=== PATIENT | male | born 1985 | race Caucasian/White ===

== ENCOUNTER → 2020-05-04 13:51 | Outpatient (BNVA) | payer OTHER, SELFPAY | PROVIDERS: PCP Physician Assistant; Visit Provider Urology | DX: Z76.89 Persons encountering health services in other specified circumstances (principal) ==

== ENCOUNTER → 2020-11-29 15:19 | Outpatient (BNVA) | payer OTHER, SELFPAY | PROVIDERS: Visit Provider Urology ==

== ENCOUNTER 2021-09-21 12:18 | Outpatient (REF) | payer OTHER, SELFPAY ==
[2021-09-21 14:02] LABS: MANUAL DIFF FLAG NO
[2021-09-21 14:06] LABS: Basophils Absolute Auto 0.1 X10*3/uL (0.0-0.2); Basophils Percent Auto 1.1 % (0-2); Eosinophils Absolute Auto 0.1 X10*3/uL (0.0-0.4); Eosinophils Percent Auto 1.8 % (0-4); Hematocrit 42.3 % (42.0-52.0); Hemoglobin 14.5 g/dl (14.0-18.0); Imm Gran Abs Auto 0.06 X10*3/uL (0.00-0.03); Imm Gran Pct Auto 1.3 % (0.0-0.4); Lymphocytes Absolute Auto 0.9 X10*3/uL (1.2-4.9); Lymphocytes Percent Auto 20.2 % (20-40); Mean Corpuscular HGB Conc 34.3 g/dl (31.0-36.0); Mean Corpuscular Hemoglobin 34.2 pg (27.0-33.0); Mean Corpuscular Volume 99.8 fL (80.0-98.0); Mean Platelet Volume 10.8 fL (9.4-12.4); Monocytes Absolute Auto 0.6 X10*3/uL (0.1-1.2); Monocytes Percent Auto 13.2 % (2-11); Neutrophils Absolute Auto 2.8 x10*3/uL (2.0-8.3); Neutrophils Percent Auto 62.4 % (45-73); Platelet Count 169 X10*3/uL (160-400); Red Blood Count 4.24 X10*6/uL (4.60-5.80); Red Cell Distribution Width 14.1 % (11.0-16.0); White Blood Count 4.5 X10*3/uL (4.8-10.8)
[2021-09-21 14:13] LABS: Estimated Average Glucose 97 mg/dL
[2021-09-21 14:23] LABS: Alanine Aminotransferase 149 U/L (0-40); Albumin Level 4.6 g/dL (3.5-5.0); Alkaline Phosphatase 69 U/L (39-117); Anion Gap 14 (12-20); Aspartate Amino Transferase 131 U/L (5-37); Bilirubin Total 1.4 mg/dL (0.0-1.0); Blood Urea Nitrogen 10 mg/dL (9-16); Calcium 9.9 mg/dL (8.4-10.2); Carbon Dioxide 25 mmol/L (22-29); Chloride 104 mmol/L (96-108); Cholesterol 287 mg/dL; Estimated Glomerular Filt Rate > 60; Glucose Fasting 106 mg/dL (60-99); HDL Cholesterol 68 mg/dL; LDL Cholesterol Calculated 199 mg/dl; Potassium 3.9 mmol/L (3.3-5.1); Sodium 139 mmol/L (135-145); Total Protein 7.3 g/dL (6.5-8.0); Triglycerides 100 mg/dL
[2021-09-21 14:26] LABS: INTERNATIONAL NORM RATIO 1.1 (0.9-1.1)
[2021-09-21 14:31] LABS: Alanine Aminotransferase 144 U/L (0-40); Albumin Level 4.7 g/dL (3.5-5.0); Alkaline Phosphatase 67 U/L (39-117); Anion Gap 12 (12-20); Aspartate Amino Transferase 129 U/L (5-37); Bilirubin Total 1.5 mg/dL (0.0-1.0); Blood Urea Nitrogen 10 mg/dL (9-16); C Reactive Protein 0.54 mg/dL (< or = 0.50); Calcium 10.1 mg/dL (8.4-10.2); Carbon Dioxide 26 mmol/L (22-29); Chloride 104 mmol/L (96-108); Estimated Glomerular Filt Rate > 60; Gamma Glutamyl Transpeptidase 2832 U/L (11-51); Glucose Fasting 113 mg/dL (60-99); Iron 90 mcg/dL (45-160); Lipase 37 U/L (8-78); Percent Iron Saturation 27 % (15-50); Potassium 3.9 mmol/L (3.3-5.1); Sodium 138 mmol/L (135-145); Total Iron Binding Capacity 331 mcg/dL (228-428); Total Protein 7.3 g/dL (6.5-8.0); Unsaturated Iron Binding 241 ug/dL
[2021-09-21 14:39] LABS: Ferritin 939 ng/mL (20-250); Thyroid Stimulating Hormone 0.92 uIU/mL (0.32-4.0)
[2021-09-21 14:44] LABS: TSH reflex Free T4 0.98 uIU/mL (0.32-4.0)
[2021-09-22 05:02] LABS: Hepatitis A Antibody IgM 0.15 Index (0-0.79); ~Hepatitis A Antibody IgM Nonreactive (Nonreactive)
[2021-09-22 05:09] LABS: HBsAGNum1 0.19 S/CO (0.00-0.99); Hepatitis B Surface Antigen Negative (Negative); ~HepC Num1 0.06 S/CO (0.00-0.79); ~Hepatitis C Antibody Nonreactive (Nonreactive)
[2021-09-23 11:31] LABS: Immunoglobulin A 259 mg/dL (47-310)
[2021-09-24 13:56] LABS: Anti Nuclear Antibody Screen NEGATIVE (NEGATIVE)
[2021-09-25 20:26] LABS: Transglutaminase IgA <1.0 U/mL
[2021-09-26 13:22] LABS: Smooth Muscle Antibody <20 U (<20)
[2021-09-26 13:37] LABS: Mitochondrial Antibodies NEGATIVE (NEGATIVE)
[2021-09-26 17:02] LABS: Ceruloplasmin 25 mg/dL (18-36)
[2021-10-02 22:12] LABS: A1A Clinical Indication NG; A1A Referring Physician NG
== END 2021-09-21 12:19 | disposition home or self-care (01) ==
LOC: HO.WFDLDS 12:18
PROVIDERS: Physician Assistant; Visit Provider Physician Assistant
DX: Z13.29 Encounter for screening for other suspected endocrine disorder (principal); Z13.220 Encounter for screening for lipoid disorders; R10.10 Upper abdominal pain, unspecified; R14.0 Abdominal distension (gaseous); K21.9 Gastro-esophageal reflux disease without esophagitis; R79.89 Other specified abnormal findings of blood chemistry; R19.7 Diarrhea, unspecified
CPT/HCPCS: 36415; 80053; 80061; 82104; 82390; 82728; 82784; 82977; 83036; 83540; 83690; 84443; 85025; 85610; 86015; 86038; 86039; 86140; 86255; 86256; 86364; 86709; 86803; 87340

== ENCOUNTER 2021-10-06 12:31 | Outpatient (REF) | payer OTHER, SELFPAY ==
[2021-10-06 15:16] LABS: CDiff Gene PCR NEGATIVE (Negative)
[2021-10-06 15:51] LABS: Leukocytes Stool Qualitative NEGATIVE (NEGATIVE)
[2021-10-11 15:27] LABS: Fecal Fat Qualitative Normal (Normal)
== END 2021-10-06 12:32 | disposition home or self-care (01) ==
LOC: HO.WFDLNP 12:31
PROVIDERS: PCP Physician Assistant; Visit Provider Physician Assistant
DX: R10.10 Upper abdominal pain, unspecified (principal); R14.0 Abdominal distension (gaseous); R19.7 Diarrhea, unspecified; R79.89 Other specified abnormal findings of blood chemistry; K21.9 Gastro-esophageal reflux disease without esophagitis
CPT/HCPCS: 82705; 87045; 87046; 87177; 87209; 87329; 87338; 87493; 89055

== ENCOUNTER 2023-01-21 | Outpatient (REF) | payer BC, SELFPAY ==
--- NOTE | ~2023-01-21 | XR_ITS ---
EXAMINATION: XR LUMBOSACRAL SPINE CLINICAL INFORMATION: Worsening low back pain COMPARISON: None available. TECHNIQUE: Three views of the lumbosacral spine. FINDINGS: There is normal lumbar lordosis. The vertebral heights are normal. There is grade 1 retrolisthesis L4 over L5. Rest of the vertebral alignment is normal. No visible acute fracture, dislocation, subluxation seen. No aggressive lytic or sclerotic process seen. SI joints are symmetrical and normal. XR/XR lumbar spine 2-3V IMPRESSION: Grade 1 retrolisthesis L4 over L5. No visible fracture, lytic or sclerotic process seen
== END 2023-01-21 00:01 | disposition home or self-care (01) ==
LOC: HO.XRAY
PROVIDERS: PCP Physician Assistant; Visit Provider Physician Assistant
DX: M54.50 Low back pain, unspecified (principal)
CPT/HCPCS: 72100

== ENCOUNTER 2023-02-01 08:26 | Outpatient (AMB) | payer BC, SELFPAY ==
--- NOTE | 2023-02-01 08:28 | MHC.OFFVIS ---
Intake Vital Signs 02/01/23 08:33 Height 6 ft Weight 227 lb 6 oz BMI 30.8 BP 130/77 Blood Pressure Location Rt brachial Position Sitting Pulse 89 Pulse Source Pulse Oximeter Pulse Oximetry (%) 100 Oxygen Delivery Method Room Air Intake Visit Reasons: intervertebral disc disorder Intake Note: Pain today 10/13. 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 Denies any recent trauma, injury or falls. Back pain is axial and does not radiates to lower extremities, except with shooting pain radiating into his lateral hips bilaterally. Back pain is worst during the day and coccyx pain with any prolonged sitting. 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 Thus far, patient has done physical therapy and tried conservative management including heating pads, hot shower, NSAIDs and increase daily walking. Patient also reports he has not gained significant improvement in his function or reduction in pain with course of physical therapy. Pain negatively affects his daily functioning, work, sleep, mood and quality of life. Recent lumbar spine xray is noted for Grade 1 retrolisthesis L4 over L5. Patient denies previous spine surgery or injections. Denies any fever, abdominal or groin pain, weakness, burning, tingling, bladder or bowel dysfunction or saddle anesthesia. Oswestry Low Back Pain Disability score is 23 (moderate). Location Lower back radiates to bilateral hips Duration Chronic pain for 5 years Characteristics of symptom or complaint Aching, stabbing, shock-like, tiring, sharp, shooting, spasming Aggravating or associated factors Lifting, movements, laying down, changing positions, prolonged sitting Relieving factors Walking, OTC Ibuprofen, heating therapy, hot shower Treatment PT- 3 years ago, no improvement [facility] Medical History History of epididymitis Erectile dysfunction Orchalgia Frequency of urination Anxiety Erectile dysfunction Chronic lower back pain Fibromyalgia Surgical History History of shoulder surgery Family History Father Osteoarthritis HTN (hypertension) Heart attack, Onset Age: 67 Mother No problems noted. 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 Alert and oriented. Mood and affect appropriate. Follows and participates in conversation appropriately. Respiratory effort is unlabored. No cough. Able to transition from sit to stand unassisted. Ambulates with bilaterally normal heel strike and toe off. Back/Spine/Pelvis Other: Patient is able to walk and stand on heels and tip toes with no difficulties demonstrating good motor tone. No limping. Can flex forward to 60-65 degrees and extend to 5-10 degrees before experiencing lumbar pain. Demonstrates 5/5 strength of quadriceps bilaterally as well as flexion/dorsiflexion of bilateral feet against resistance. 2+ pedal pulses bilaterally. Straight leg rise with dorsiflexion positive bilaterally. +2 patellar and achilles reflexes bilaterally. Facet loading test positive bilaterally. Diego?s, Pelvic compression and Stinchfield tests reproduce left lower back pain. No groin pain with I/E hip rotations. Valsalva maneuver negative. Cervical Spine: cervical ROM normal, cervical muscular tenderness and No Cervical spine tenderness Thoracic/Lumbar Spine: thoracic and lumbar spine normal to inspection, No Thoracic/lumbar spine scar(s), Lasegue's sign positive bilateral and diffuse, pain with thoraco-lumbar ROM, paraspinal muscle tenderness, thoraco-lumbar ROM limited, No thoracic spinal tenderness and lumbar spinal tenderness at L4 and at L5 Pelvis: buttock tenderness bilaterally and no sciatic notch tenderness Sacroiliac joints: bilaterally tender to palpation Coccyx: Coccyx tenderness present Results Reviewed Results Reviewed: XR LUMBOSACRAL SPINE 01/21/23 CLINICAL INFORMATION: Worsening low back pain COMPARISON: None available. TECHNIQUE: Three views of the lumbosacral spine. FINDINGS: There is normal lumbar lordosis. The vertebral heights are normal. There is grade 1 retrolisthesis L4 over L5. Rest of the vertebral alignment is normal. No visible acute fracture, dislocation, subluxation seen. No aggressive lytic or sclerotic process seen. SI joints are symmetrical and normal. IMPRESSION: Grade 1 retrolisthesis L4 over L5. No visible fracture, lytic or sclerotic process seen Assessment & Plan Assessment & Plan (1) Lumbosacral spondylosis: Code(s): M47.817 - Spondylosis without myelopathy or radiculopathy, lumbosacral region (2) Lumbar degenerative disc disease: Code(s): M51.36 - Other intervertebral disc degeneration, lumbar region (3) Muscle spasm: Code(s): M62.838 - Other muscle spasm (4) Spondylolisthesis of lumbar region: Code(s): M43.16 - Spondylolisthesis, lumbar region Plan MRI of the lumbar spine to assess for neural integrity and compression and follow up on recent lumbar spine xray findings. Patient has tried NSAIDs, physical therapy, home exercise program, heat therapy with continued symptoms. Patient will return to the clinic to discuss results of the MRI findings when it is done and consider interventional therapy as indicated. Scripts sent for meloxicam and methocarbamol, side effects and precautions reviewed with patient. All questions and concerns have been answered and patient agreed with the plan. Follow up for MRI results and sooner if needed. Orders: Orders MR lumbar spine wo con Today M43.16 - Spondylolisthesis, lumbar region, M47.817 - Spondylosis without myelopathy or radiculopathy, lumbosacral region, M51.36 - Other intervertebral disc degeneration, lumbar region Medications: New methocarbamol 750 mg PO Q8H PRN 30 tabs 0RF pain M62.838 - Other muscle spasm meloxicam Take it with food and full glass of water. Avoid other NSAIDs. 15 mg PO DAILY 30 days PRN 30 tabs 0RF pain M47.817 - Spondylosis without myelopathy or radiculopathy, lumbosacral region, M51.36 - Other intervertebral disc degeneration, lumbar region Coding Level of Care Code New Pt Level 4 (86124) Diagnoses Lumbosacral spondylosis M47.817 Lumbar degenerative disc disease M51.36 Muscle spasm M62.838 Spondylolisthesis of lumbar region M43.16
[2023-02-01 08:33] VITALS: BP 130/77; PULSE 89; O2SAT 100; BMI 30.8
== END 2023-02-01 08:56 | disposition home or self-care (01) ==
PROVIDERS: PCP Physician Assistant; Visit Provider Nurse Practitioner Family
DX: M47.817 Spondylosis without myelopathy or radiculopathy, lumbosacral region (principal); M51.36 Other intervertebral disc degeneration, lumbar region; M62.838 Other muscle spasm; M43.16 Spondylolisthesis, lumbar region
CPT/HCPCS: 99204

== ENCOUNTER → 2023-02-01 08:26 | Outpatient (BNVA) | payer BC, SELFPAY | PROVIDERS: PCP Physician Assistant; Visit Provider Nurse Practitioner Family ==

== ENCOUNTER 2023-02-17 19:59 | Emergency (ER) | payer BC, SELFPAY ==
[2023-02-17 20:11] VITALS: BP 149/95; PULSE 121; RESP 18; TEMP 37.1; O2SAT 96; BMI 29.2
--- NOTE | 2023-02-17 20:19 | ED_ITS ---
HPI - General Adult General Chief complaint: Back Pain/Injury Stated complaint: Back pain Time Seen by Provider: 02/17/23 21:46 Source: patient Mode of arrival: ambulatory Limitations: no limitations History of Present Illness HPI narrative: Patient is a 37 year old assigned male at with a history of chronic back pain presenting to the emergency department today with low back pain. Patient states that he has been having chronic low back pain for 10 years and over the last month, it has gotten much worse. Patient states that he has an MRI scheduled here at [facility] on 02/23/2023. Patient admits to drinking 4-5 times a week but will not disclose how much a night. Patient denies any history of liver disease. Patient denies any history of ocular disease. Patient denies any dizziness, lightheadedness, abdominal pain, nausea, vomiting, fever, chills, blurry vision, double vision, loss of vision, chest pain, difficulty breathing, shortness of breath, night sweats, pain with urination, increased urinary freque ncy, increased urinary urgency, blood in his urine or stool, syncope or a near syncopal episode, recent trauma or falls, bowel incontinence, bladder incontinence, bowel retention, bladder retention, or any other complaints at this time. Onset (ago): month(s) (1) Location: back Relieving factors: none Exacerbating factors: none Associated symptoms: denies other symptoms Treatments prior to arrival: none Related Data Home Medications Medication Instructions Recorded Confirmed atomoxetine 25 mg capsule 25 mg PO DAILY 10/17/22 10/17/22 propranolol 10 mg tablet 10 mg PO BID PRN 10/17/22 10/17/22 quetiapine 25 mg tablet 25 - 50 mg PO BEDTIME 10/17/22 10/17/22 venlafaxine 225 mg tablet,extended 225 mg PO DAILY 10/17/22 10/17/22 release 24 hr Previous Rx's Medication Instructions Recorded albuterol sulfate 90 mcg/actuation 1 puff PO QID 30 days #8.5 grams 12/11/21 aerosol inhaler betamethasone dipropionate 0.05 % 1 appl topical DAILY 30 days #45 02/22/22 topical cream grams meloxicam 15 mg tablet 15 mg PO DAILY PRN pain 30 days 02/01/23 #30 tabs methocarbamol 750 mg tablet 750 mg PO Q8H PRN pain #30 tabs 02/01/23 clonazepam 0.5 mg tablet (Klonopin) 0.5 mg PO DAILY PRN panic 02/04/23 attack(s) 30 days #15 tabs prednisone 10 mg tablet 10 mg PO DIRECTED 9 days #18 02/14/23 tabs tramadol 50 mg tablet 50 mg PO BID 5 days #10 tabs 02/14/23 Allergies Allergy/AdvReac Type Severity Reaction Status Date / Time No Known Allergies Allergy Mild NONE Verified 02/01/23 08:32 Review of Systems Constitutional: Constitutional: Reports no additional constitutional complaints, Denies chills, Denies fever(s) and Denies night sweats Eyes: Eyes: Reports no additional eye complaints, Denies blurry vision, Denies change in vision, Denies diplopia, Denies eye discharge, Denies loss of vision and Denies eye pain ENT: Denies dizziness Cardiovascular: Cardiovascular: Reports no additional cardiovascular complaints, Denies chest pain, Denies lightheadedness, Denies Loss of Consciousness and Denies dyspnea Respiratory: Respiratory: Reports no additional respiratory complaints and Denies dyspnea Gastrointestinal: Gastrointestinal: Reports no additional gastrointestinal complaints, Denies abdominal pain, Denies melena, Denies hematochezia, Denies change in bowel habits and Denies change in stool character Genitourinary: Genitourinary: Reports no additional male genitourinary complaints, Denies hematuria, Denies oliguria, Denies difficulty urinating, Denies dysuria, Denies urinary frequency, Denies urinary hesitancy, Denies urinary incontinence and Denies urinary urgency Musculoskeletal: Musculoskeletal: Reports no additional musculoskeletal complaints, Reports back pain, Denies numbness and Denies tingling Neurologic: Denies dizziness, Denies loss of vision, Denies numbness and Denies tingling Psychiatric: Psychiatric: Reports no additional psychiatric complaints Endocrine: Endocrine: Reports no additional endocrine complaints Hematologic/Lymphatic: Hematologic/Lymphatic: Reports no additional hematologic/lymphatic complaints Allergic/Immunologic: Allergic/Immunologic: Reports no additional allergic/immunologic complaints PMFSH Past Medical History Attestation statement: The following information was validated with the patient. Source: old records reviewed and nursing notes reviewed Medical History Obese Annual physical exam Elevated LFTs Screening for hypothyroidism Screening for hypercholesterolemia Screening for diabetes mellitus (DM) History of epididymitis Erectile dysfunction Orchalgia Frequency of urination Anxiety Erectile dysfunction Chronic lower back pain Fibromyalgia Surgical History History of shoulder surgery Family History Family History Father Osteoarthritis HTN (hypertension) Heart attack, Onset Age: 67 Mother No problems noted. 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 Cognitive needs: No Hearing needs: No Vision needs: No Physical Exam ED Vital Signs: Vital Signs - 24 hr 02/17/23 20:11 02/17/23 21:44 Temperature 98.8 F 98.6 F Pulse Rate 121 H 123 H Respiratory Rate 18 18 Blood Pressure 149/95 H 164/101 H Pulse Oximetry 96 97 Oxygen Delivery Method Room Air Room Air BMI result Body Mass Index 29.2 Const General: cooperative, no acute distress, alert and awake Nutritional Appearance: well nourished Orientation/consciousness: patient oriented x3 Limitations: no limitations [facility] Head: Yes normal to inspection and Yes atraumatic Ears: hearing grossly normal bilaterally and external ears normal General nose exam: Normal external nose present, no nasal discharge noted and no epistaxis Face and sinus: Yes normal facial exam, No abrasion and No laceration Mouth: Normal oral and palatal mucosa present, no drooling and no muffled voice Eyes Periorbital: periorbital findings normal Eyelids: Yes eyelids normal Sclerae: scleral abnormal bilateral other (icterus) Pupils: Equal, round and reactive pupils present EOM: EOMs intact bilaterally Neck Neck: Yes normal visual inspection, Yes full ROM and Yes no lymphadenopathy Chest Chest palpation & inspection: normal inspection of the chest Resp Effort & Inspection: normal respiratory effort and able to speak in complete sentences GI Inspection: Yes normal to inspection Skin Other: jaundice tone Neuro General: patient oriented x3 and moves all extremities Cranial nerves: Yes Equal, round and reactive pupils present Cognition (Neuro): normal cognition Motor exam (neuro): 5/5 motor strength present throughout Sensory Exam: Normal double simultaneous stimulation for sensation Coordination: [id number] test normal Extrem General: Yes normal to inspection, Yes full ROM and Yes capillary refill normal Psych Appearance: grossly normal Mental Status: mental status grossly normal Affect: normal affect Attitude: cooperative Thought process: Normal thought process present Thought content: Normal thought content present Insight: Good insight present (Psych) Course Course Course Narrative: RME: 37 yold male presents to the ED for chronic back pain exacerbation for one month. patient has MRi scheulded for 02/23. patient states worsening back pain, but no Urinay/bowel incontinence. patient states no abdominal pain or symptoms. Patient to be examined in [facility]. Medical Decision Making Medical Decision Making [facility] Narrative: Patient is a 37 year old assigned male at with a history of chronic back pain presenting to the emergency department today with low back pain. Patient's physical exam showed jaundiced skin and slceral icterus. Additionally, the patient was tremulous and smelled strongly of alcohol. I explained my physical exam findings to the patient. I explained to the patient that given his physical exam findings, I am concerned he has worsening liver disease and needs further work up including labs and imaging. Patient adamantly refused any lab work or imaging. I explained to the patient that he would be provided pain medication for his back in addition to this work up and he still refused. I explained to the patient the risks of refusing the work up, treatment, and signing out against medical advice including and disability. Patient verbalized understanding and requested to leave against medical advice anyway. Differential Diagnosis Differential Diagnoses: The differential diagnosis associated with the presentation includes Liver disease Cirrhosis Liver failure Back pain Discharge Plan Discharge Clinical Impression: Back pain, Alcohol use, Jaundice Patient Disposition: Left Against Medical Advice Prescriptions: No Action albuterol sulfate 90 mcg/actuation HFA aerosol inhaler 1 puff PO QID 30 Days Qty: 8.5 3RF clonazepam [Klonopin] 0.5 mg tablet 0.5 mg PO DAILY PRN (Reason: panic attack(s)) 30 Days Qty: 15 1RF prednisone 10 mg tablet 10 mg PO DIRECTED 9 Days Qty: 18 0RF Rx Instructions: take 3 tabs x 3 days, 2 tablets x3 days, 1 tablet x3 days tramadol 50 mg tablet 50 mg PO BID 5 Days Qty: 10 0RF venlafaxine 225 mg tablet extended release 24hr 225 mg PO DAILY propranolol 10 mg tablet 10 mg PO BID PRN quetiapine 25 mg tablet 25 - 50 mg PO BEDTIME atomoxetine 25 mg capsule 25 mg PO DAILY betamethasone dipropionate 0.05 % cream 1 appl topical DAILY 30 Days Qty: 45 1RF meloxicam 15 mg tablet 15 mg PO DAILY PRN (Reason: pain) 30 Days Qty: 30 0RF Rx Instructions: Take it with food and full glass of water. Avoid other NSAIDs. methocarbamol 750 mg tablet 750 mg PO Q8H PRN (Reason: pain) Qty: 30 0RF Stand Alone Forms: Against Medical Advice Interventions: ED Discharge Assessment Last Done: 02/17/23 22:02 Discharge Date/Time: 02/17/23 22:02
[2023-02-17 21:44] VITALS: BP 164/101; PULSE 123; RESP 18; TEMP 37; O2SAT 97
--- NOTE | 2023-02-17 22:01 | PC.NURSE ---
pt refusing labwork recommended by macario payne. pt left ama. pt ambulatory refused final set of vital signs
== END 2023-02-17 22:02 | disposition left against medical advice (07) ==
PROVIDERS: Emergency Provider Emergency Medicine Emergency Medical Services; PCP Physician Assistant
DX: M54.50 Low back pain, unspecified (principal); F10.90 Alcohol use, unspecified, uncomplicated; Y90.9 Presence of alcohol in blood, level not specified; R17 Unspecified jaundice; Z79.899 Other long term (current) drug therapy
CPT/HCPCS: 99284

== ENCOUNTER 2023-02-23 14:35 | Outpatient (REF) | payer BC, SELFPAY ==
--- NOTE | ~2023-02-23 | MR_ITS ---
EXAMINATION: MR LUMBAR SPINE WITHOUT CONTRAST CLINICAL INFORMATION: Spondylolisthesis. COMPARISON: Lumbar spine radiographs 01/21/2023. Lumbar spine MRI 07/23/2014. TECHNIQUE: MRI of the lumbar spine was obtained using routine sequences without contrast. FINDINGS: Alignment is normal. Vertebral heights are preserved. No acute bone marrow signal changes. There is loss of intervertebral disc height and T2 signal intensity at L5-S1 related to disc degeneration. The tip of the conus medullaris is located at L1-L2. No mass effect on the conus. Visualized distal cord signal intensity is normal. At L1-L2, L2-L3, L3-L4, and L4-L5 the annular contours are normal. No canal or neuroforaminal compromise at these 4 levels. At L5-S1 there is a large broad-based central to the left subarticular extrusion with 2 cm superior subligamentous extension of extruded disc material. Asymmetric narrowing left subarticular zone causes compression of the left traversing S1 nerve roots. There is also mild mass effect on the left L5 foraminal nerve root at this level. Limited visualization the retroperitoneal anatomy reveals no abnormal finding. Psoas and paraspinal muscle groups are symmetric. MR/MR lumbar spine wo con IMPRESSION: There is a large broad-based central to the left subarticular extrusion at L5-S1 causing compression of the left traversing S1 nerve roots. There is also mild mass effect on the left L5 foraminal nerve root at this level. Otherwise no canal or neuroforaminal compromise elsewhere within the lumbar spine.
== END 2023-02-23 14:36 | disposition home or self-care (01) ==
LOC: HO.MRI 14:35
PROVIDERS: PCP Physician Assistant; Visit Provider Nurse Practitioner Family
DX: M43.16 Spondylolisthesis, lumbar region (principal); M47.817 Spondylosis without myelopathy or radiculopathy, lumbosacral region; M51.36 Other intervertebral disc degeneration, lumbar region
CPT/HCPCS: 72148

== ENCOUNTER 2023-02-28 11:24 | Outpatient (AMB) | payer BC, SELFPAY ==
[2023-02-28 11:28] VITALS: BP 130/82; PULSE 93; O2SAT 100; BMI 30.7
--- NOTE | 2023-02-28 11:28 | A.OFFVIS_ITS ---
Intake Vital Signs 02/28/23 11:28 Height 6 ft Weight 226 lb 8 oz BMI 30.7 BP 130/82 Blood Pressure Location Lt brachial Position Sitting Pulse 93 Pulse Source Pulse Oximeter Pulse Oximetry (%) 100 Oxygen Delivery Method Room Air Intake Visit Reasons: FOLLOW UP/MRI RESULTS Intake Note: Pain today 12/13 Quantitative Researcher Required: No Accompanied by: Self / Same As Patient Allergies No Known Allergies Allergy (Mild, Verified 02/01/23 08:32) NONE HPI HPI Comments History of Present Illness Details Patient presents today to review recent lumbar spine MRI results. He continues to endorse low back pain with significant left sided radicular symptoms in L5-S1 distribution. MRI showed a large broad-based central to the left subarticular extrusion at L5-S1 causing compression of the left traversing S1 nerve roots. There is also mild mass effect on the left L5 foraminal nerve root at this level. Discussed benefit of epidular steroid injection and referral for Neurosurgical evaluation. Denies any fever, bladder or bowel dysfunction. Reports transient numbness and pain to left buttock with intermittent weakness of LLE. Patient reports minimal pain relief with short script by his PCP for tramadol, as well as oral steroid trial and muscle relaxants. He has hepatic steatosis and [place] [facility]. Most recent liver function tests are not available. Concerns discussed with patient today for his regular intake of alcohol which put him at high risk for alcoholic hepatitis. Patient reports alcohol helps his pain and anxiety. He takes propranolol and clonazepam for anxiety with partial management of his symptoms. Patient reports constipation for 2 weeks when he started tramadol. PRIOR: Patient is a 37 years old male with history of chronic low back pain, interstitial cystitis, left shoulder surgery and fibromyalgia presents today for initial evaluation of lower back and tailbone pain. Denies any recent trauma, injury or falls. Back pain is axial and does not radiates to lower extremities, except with shooting pain radiating into his lateral hips bilaterally. Back pain is worst during the day and coccyx pain with any prolonged sitting. 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 Thus far, patient has done physical therapy and tried conservative management including heating pads, hot shower, NSAIDs and increase daily walking. Patient also reports he has not gained significant improvement in his function or reduction in pain with course of physical therapy. Pain negatively affects his daily functioning, work, sleep, mood and quality of life. Recent lumbar spine xray is noted for Grade 1 retrolisthesis L4 over L5. Patient denies previous spine surgery or injections. Denies any fever, abdominal or groin pain, weakness, burning, tingling, bladder or bowel dysfunction or saddle anesthesia. Oswestry Low Back Pain Disability score is 23 (moderate). Location Lower back radiates to bilateral hips Duration Chronic pain for 5 years Characteristics of symptom or complaint Aching, stabbing, shock-like, tiring, sharp, shooting, spasming Aggravating or associated factors Lifting, movements, laying down, changing positions, prolonged sitting Relieving factors Walking, OTC Ibuprofen, heating therapy, hot shower Treatment PT- 3 years ago, no improvement PFSH Medical History Obese Annual physical exam Elevated LFTs Screening for hypothyroidism Screening for hypercholesterolemia Screening for diabetes mellitus (DM) History of epididymitis Erectile dysfunction Orchalgia Frequency of urination Anxiety Erectile dysfunction Chronic lower back pain Fibromyalgia Surgical History History of shoulder surgery Family History Father Osteoarthritis HTN (hypertension) Heart attack, Onset Age: 67 Mother No problems noted. 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 Cognitive needs: No Hearing needs: No Vision needs: No Review of Systems Const All systems reviewed & are unremarkable except as noted in HPI and below Reports as per HPI, Reports difficulty sleeping, Reports fatigue, Denies fever(s), Denies malaise, Denies weakness and Denies weight loss GI Reports as per HPI, Denies melena, Denies hematochezia, Reports constipation, Denies fecal incontinence, Denies diarrhea, Denies nausea, Denies vomiting and Denies hematemesis Denies urinary incontinence Neuro Denies weakness Endo Reports fatigue Physical Exam Vital Signs: Last Vital Signs Pulse 93 02/28/23 11:28 BP 130/82 02/28/23 11:28 Pulse Ox 100 02/28/23 11:28 Oxygen Delivery Method Room Air 02/28/23 11:28 BMI result Body Mass Index 30.7 General: Appears afebrile. Alert and oriented. Mood and affect appropriate. Follows and participates in conversation appropriately. Respiratory effort is unlabored. No cough. Able to transition from sit to stand unassisted. Ambulates with bilaterally normal heel strike and toe off, but reports off balance on the left. Back/Spine/Pelvis Other: Limited lumbar ROM, with flexion reproducing more pain than extension. Demonstrates 5/5 strength of quadriceps bilaterally as well as flexion/dorsiflexion of bilateral feet against resistance. 2+ pedal pulses bilaterally. Straight leg rise with dorsiflexion positive on the left. +2 meza llar and +1 achilles reflexes bilaterally. Facet loading test positive bilaterally. Diego?s, Pelvic compression and Stinchfield tests reproduce left lower back and lateral hip pain. No groin pain with I/E hip rotations. Valsalva maneuver negative. Cervical Spine: cervical ROM normal, cervical muscular tenderness and No Cervical spine tenderness Thoracic/Lumbar Spine: thoracic and lumbar spine normal to inspection, No Thoracic/lumbar spine scar(s), Lasegue's sign positive on the left and diffuse, pain with thoraco-lumbar ROM, paraspinal muscle tenderness, No thoracic spinal tenderness and lumbar spinal tenderness (L4-S1) Pelvis: buttock tenderness (left>right) bilaterally and sciatic notch tenderness on the left Sacroiliac joints: bilaterally tender to palpation Coccyx: Coccyx tenderness present Results Reviewed Results Reviewed: XR LUMBOSACRAL SPINE 01/21/23 CLINICAL INFORMATION: Worsening low back pain COMPARISON: None available. TECHNIQUE: Three views of the lumbosacral spine. FINDINGS: There is normal lumbar lordosis. The vertebral heights are normal. There is grade 1 retrolisthesis L4 over L5. Rest of the vertebral alignment is normal. No visible acute fracture, dislocation, subluxation seen. No aggressive lytic or sclerotic process seen. SI joints are symmetrical and normal. IMPRESSION: Grade 1 retrolisthesis L4 over L5. No visible fracture, lytic or sclerotic process seen MR LUMBAR SPINE WITHOUT CONTRAST 02/23/23 CLINICAL INFORMATION: Spondylolisthesis. COMPARISON: Lumbar spine radiographs 01/21/2023. Lumbar spine MRI 07/23/2014. TECHNIQUE: MRI of the lumbar spine was obtained using routine sequences without contrast. FINDINGS: Alignment is normal. Vertebral heights are preserved. No acute bone marrow signal changes. There is loss of intervertebral disc height and T2 signal intensity at L5-S1 related to disc degeneration. The tip of the conus medullaris is located at L1-L2. No mass effect on the conus. Visualized distal cord signal intensity is normal. At L1-L2, L2-L3, L3-L4, and L4-L5 the annular contours are normal. No canal or neuroforaminal compromise at these 4 levels. At L5-S1 there is a large broad-based central to the left subarticular extrusion with 2 cm superior subligamentous extension of extruded disc material. Asymmetric narrowing left subarticular zone causes compression of the left traversing S1 nerve roots. There is also mild mass effect on the left L5 foraminal nerve root at this level. Limited visualization the retroperitoneal anatomy reveals no abnormal finding. Psoas and paraspinal muscle groups are symmetric. IMPRESSION: There is a large broad-based central to the left subarticular extrusion at L5-S1 causing compression of the left traversing S1 nerve roots. There is also mild mass effect on the left L5 foraminal nerve root at this level. Otherwise no canal or neuroforaminal compromise elsewhere within the lumbar spine. Assessment & Plan Assessment & Plan (1) Constipation: Code(s): K59.00 - Constipation, unspecified (2) Lumbar disc herniation with radiculopathy: Code(s): M51.16 - Intervertebral disc disorders with radiculopathy, lumbar region (3) Spondylolisthesis of lumbar region: Code(s): M43.16 - Spondylolisthesis, lumbar region (4) Lumbar degenerative disc disease: Code(s): M51.36 - Other intervertebral disc degeneration, lumbar region Plan Schedule Left L5-S1 TFESI with local and fluoroscopy for left radicular symptoms. Expectations, risks and benefits were reviewed. Patient is aware he will be contacted to schedule this procedure. Neurosurgical referral for disc herniation at L5-S1 with radiculopathy. Patient was encouraged to follow up with is GI and PCP provider for elevated LFTs, hepatic steatosis, and urged to discontinue alcohol consumption. Script provided for sennosides at patient's request. All questions were answered and the patient is in agreement of plan. Follow-up after injections and sooner as needed. Orders: Referrals Neurosurgery Referral M43.16 - Spondylolisthesis, lumbar region, M51.16 - Intervertebral disc disorders with radiculopathy, lumbar region, M51.36 - Other intervertebral disc degeneration, lumbar region Medications: New sennosides 8.6 mg PO BEDTIME PRN 30 tabs 1RF constipation K59.00 - Constipation, unspecified Coding Level of Care Code Est Pt Level 4 (84641) Diagnoses Constipation K59.00 Lumbar disc herniation with radiculopathy M51.16 Spondylolisthesis of lumbar region M43.16 Lumbar degenerative disc disease M51.36
== END 2023-02-28 11:46 | disposition home or self-care (01) ==
PROVIDERS: PCP Physician Assistant; Visit Provider Nurse Practitioner Family
DX: K59.00 Constipation, unspecified (principal); M51.16 Intervertebral disc disorders with radiculopathy, lumbar region; M43.16 Spondylolisthesis, lumbar region; M51.36 Other intervertebral disc degeneration, lumbar region
CPT/HCPCS: 99214

== ENCOUNTER → 2023-02-28 11:24 | Outpatient (BNVA) | payer BC, SELFPAY | PROVIDERS: PCP Physician Assistant; Visit Provider Nurse Practitioner Family ==

== ENCOUNTER 2023-03-06 09:07 | Outpatient (AMB) | payer BC, SELFPAY ==
--- NOTE | 2023-03-06 09:16 | A.SPINEOV_ITS ---
Intake Intake Visit Reasons: Intervertebral disc disorders with radiculopathy Intake Note: Mr. López is here today c/o low back pain. [place] [facility] [facility] Required: No Allergies No Known Allergies Allergy (Mild, Verified 02/01/23 08:32) NONE Assessment & Plan Assessment & Plan (1) Lumbar disc herniation with radiculopathy: Code(s): M51.16 - Intervertebral disc disorders with radiculopathy, lumbar region Plan Dear JOESPH Zelaya, Thank you for referring Nelson to our office today. He Is a pleasant 37-year-old male who comes in today with a chief complaint of persistent low back pain with severe shooting pain down his left leg. He reports associated symptoms of numbness / burning/ tingling down his left leg. He states that the radiation starts in his low back shoots down his posterior left thigh wrapping on his posterior/lateral calf terminating at the bottom of his foot. He reports the bottom his foot feels persistently numb throughout the day. He reports no saddle anesthesia or urinary incontinence, but does endorse a history of interstitial cystitis which is managed by his outpatient provider (reports no chronic medications for this). He reports that his pain began about 1 month ago shortly after lifting at the gym. He states that within the next few days a fter doing lifts he felt a shooting pain develop on his left side. He has tried many nqdx-qjy-[id number] remedies including Tylenol, ibuprofen, ice, heat, [id number]-nmqiwtl pain patches all without alleviation of symptoms. He has also seen medical providers that have given him both tramadol and oxycodone, both of which only temporarily relieved his pain. He states he is now at the point where he is losing sleep, is unable to work as much as he was previously, and feels he cannot live like this. PMH: Interstitial cystitis, GERD, erectile dysfunction, asthma, insomnia, generalized anxiety, hyperlipidemia, left shoulder surgery. Social hx: Patient does not smoke, reports no substance use. Medications: Propanolol, albuterol, atomoxetine, clonazepam, methocarbamol, venlafaxine, senna, quetiapine, meloxicam, tramadol. Allergies: NKDA. Physical exam: The patient has 5/5 strength in his upper and lower extremities, he is able to elicit full strength despite pain. Reduced sensation ( numbness ) at the bottom of his foot on the left side. Sensation grossly intact elsewhere. Reflexes 2+ intact. Patient is able to ambulate well, but does favor his right side when walking. Rises from a seated position without difficulty. (+) Straight leg raise on left side. (-) Clonus. (-) Yoel's. Imaging review: [place] [facility] large posterior disc bulge protruding into the central canal. Extruded disc noted on left side of central canal. Severe left L5 foraminal stenosis, accompanied by compression of the traversing S1 nerve roots. Impression: Nelson is a 37-year-old male comes in today after what sounds like an acute disc herniation secondary to lifting heavy weights at the gym. He has radicular symptoms on the left side that are in a classic L5/S1 distribution. Unfortunately over the course of the last 4 weeks he reports that his symptoms have only worsened, including worsening pain and worsening numbness at the bottom of his foot. We did discuss the possibility of self resolution of conditions such as this especially in our younger patients. Unfortunately Nelson is now at the point where he is 4 weeks into this injury and states it is significantly affecting his life. he cannot sleep properly, he cannot work a regular or full week, he cannot cut his grass or care for his yard, and is now having difficulty completing his ADLs. Due to the severity and progression of his symptoms we believe that a surgical solution is the best course at this time. He was evaluated by Dr. Jennings who offered him a L5-S1 left sided microdiskectomy. He understands the risks and benefits of this surgery and is agreeable to having this surgery completed. After reviewing our surgical schedule we were able to move a less emergent surgery to a later date and schedule him for 03/11/2023 (this coming Saturday). Nelson was given risk and benefits of surgery including but not limited to infection, hematoma, nerve injury, durotomy, weakness, bowel/bladder injury, persistent pain, as well as the option to continue with conservative treatment and patient wishes to proceed with surgery. He is aware he should stop NSAIDs 7 days prior to surgery. All questions were answered to the best of our ability. If there is anything about this patients medical history that we have overlooked or concerns you have about us proceeding with surgery we would appreciate any input you can offer. Thank you for allowing us to care for your patient. The total time spent with this visit with this patient was 60 minutes reviewing history, physical exam, MRI imaging review, surgical scheduling, and implementation of treatment plan or further diagnostic testing. Ebenezer Jennings MD,PhD [facility] Coding Level of Care Code New Pt Level 5 (42439) Diagnoses Lumbar disc herniation with radiculopathy M51.16
== END 2023-03-06 09:55 | disposition home or self-care (01) ==
PROVIDERS: PCP Physician Assistant; Referring Provider Nurse Practitioner Family; Visit Provider Physician Assistant
DX: M51.16 Intervertebral disc disorders with radiculopathy, lumbar region (principal)
CPT/HCPCS: 99205; 99215

== ENCOUNTER → 2023-03-06 09:07 | Outpatient (BNVA) | payer BC, SELFPAY | PROVIDERS: PCP Physician Assistant; Visit Provider Physician Assistant ==

== ENCOUNTER 2023-03-11 11:58 | Day surgery (SDC) | payer BC, SELFPAY ==
--- NOTE | 2023-03-08 10:40 | HO.ANESPROP2 ---
Documented by User: Natalie Dawson NP 03/08/23 10:44 HPI - Anesthesia Eval Consult details Narrative: 37yo M for Left L5-S1 Micro Lumbar Discectomy Pt not seen in PAT. Last PCP eval 10/2022: no c/o cardiorespiratory problems, nml exam PMFSH Active Problems Active Problems: All Active Problems (Updated 02/28/23 @ 12:05 by CECILLE Dominguez) Lumbar disc herniation with radiculopathy (Acute) Constipation (Acute) Spondylolisthesis of lumbar region (Acute) Muscle spasm (Acute) Lumbosacral spondylosis (Acute) Lumbar degenerative disc disease (Acute) Skin lesion of left arm (Acute) HLD (hyperlipidemia) (Acute) Herniated nucleus pulposus, L5-S1 (Acute) Eczema (Acute) MDD (major depressive disorder), recurrent episode, moderate (Acute) Fatty liver (Acute) GERD (gastroesophageal reflux disease) (Acute) Bipolar 1 disorder (Acute) Erectile dysfunction (Acute) Asthma (Acute) Insomnia (Acute) Interstitial cystitis (Acute) ANUJ (generalized anxiety disorder) (Acute) Past Medical History Medical History Obese Annual physical exam Elevated LFTs Screening for hypothyroidism Screening for hypercholesterolemia Screening for diabetes mellitus (DM) History of epididymitis Erectile dysfunction Orchalgia Frequency of urination Anxiety Erectile dysfunction Chronic lower back pain Fibromyalgia Family History Family History Father Osteoarthritis HTN (hypertension) Heart attack, Onset Age: 67 Mother No problems noted. 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 needs: No Hearing needs: No Vision needs: No Meds Allergies Allergy/AdvReac Type Severity Reaction Status Date / Time No Known Allergies Allergy Mild NONE Verified 02/01/23 08:32 Home Medications Medication Instructions Recorded Confirmed Last Taken Type propranolol 10 mg tablet 10 mg PO BID PRN Anxiety 10/17/22 03/11/23 Unknown History quetiapine 25 mg tablet 25 - 50 mg PO BEDTIME 10/17/22 03/11/23 Unknown History Exam Exam Date and Time: March 08, 2023 104 Assessment and Plan Assessment Anesthesia Assessment: Chart Reviewed Documented by User: Thiago Spencer MD 03/11/23 12:32 PMFSH Past Medical History Medical History Obese Annual physical exam Elevated LFTs Screening for hypothyroidism Screening for hypercholesterolemia Screening for diabetes mellitus (DM) History of epididymitis Erectile dysfunction Orchalgia Frequency of urination Anxiety Erectile dysfunction Chronic lower back pain Fibromyalgia Family History Family History Father Osteoarthritis HTN (hypertension) Heart attack, Onset Age: 67 Mother No problems noted. Brother IBS (irritable bowel syndrome) Other Mental health disorder Family history of problems with anesthesia: No Surgical History Surgical History History of shoulder surgery History of Problems with Anesthesia: No Social History Social History Housing: House Alcohol intake: current Alcohol intake frequency: a few times a week Patient Tobacco Use Status: Never used Tobacco e-Cigarette/Vaping Use: Never Used Second Hand Smoke Exposure: No Substance Use Type: Marijuana Substance Use Frequency: Occasionally Are you DNR?: No Advance Directives: No Advance Directives Information Provided: Yes Nutrition Risks: No Nutritional Risk service: No Current occupational status: employed 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 needs: No Hearing needs: No Vision needs: No Meds Allergies Allergy/AdvReac Type Severity Reaction Status Date / Time No Known Allergies Allergy Mild NONE Verified 02/01/23 08:32 Home Medications Medication Instructions Recorded Confirmed Last Taken Type propranolol 10 mg tablet 10 mg PO BID PRN Anxiety 10/17/22 03/11/23 Unknown History quetiapine 25 mg tablet 25 - 50 mg PO BEDTIME 10/17/22 03/11/23 Unknown History Exam Airway Mallampati Class: II TM Dist: >3cm Neck ROM: Limited Heart: rrr Lungs: cta Assessment and Plan Final Anesthetic Review Family History of Problems with Anesthesia: No History of Problems with Anesthesia: No NPO: Yes ASA Class: III Final Preanesthetic Review: No Changes in Pt Med Stat, Meds/Allgs Chart Reviewed and Anes Risks/Benef Reviewed Patient Risk: Intermediate Procedure Risk: Intermediate Anesthetic Plan Anesthetic Plan: GA Disposition: Standard PACU
[2023-03-11] VITALS (10 sets, daily range): BP systolic 141–169; BP diastolic 89–106; PULSE 98–112; RESP 11–20; TEMP 36.6–36.9; O2SAT 97–100; BMI 31.6
--- NOTE | ~2023-03-11 | FL_ITS ---
EXAMINATION: XR FLUOROSCOPY WITH IMAGES CLINICAL INFORMATION: L5-S1 microdiscectomy, left. COMPARISON: None available. TECHNIQUE: Fluoroscopy Supervised By: Dr. Rebel Jennings. Fluoroscopy Time: Less than 0.1 minute. Cumulative Dose: 5.57 mGy. DAP: 1.51 Gycm2. Images: 1. FINDINGS: Image demonstrates surgical instrument and probe posterior to the L5-S1 disc space FL/FL guidance in OR IMPRESSION: Urostomy guidance for lumbar spine surgery
--- NOTE | 2023-03-11 10:42 | P.HPSUR_ITS ---
Pre-Procedural Eval Section A Date of Service: 03/11/23 The patient is an INPATIENT: No Changes since office visit: No Cold of Flu in the past 2 weeks, No New Medical Problems, No Changes in Medication and No Patient answered all questions The History & Physical has been completed within 30 days and I have reviewed it.: No Section B Chief Complaint: Intervertebral disc disorders with radiculopathy, Allergies: Allergies Allergy/AdvReac Type Severity Reaction Status Date / Time No Known Allergies Allergy Mild NONE Verified 02/01/23 08:32 Review of Systems Sugical H&P ROS: Negative: Constitution, Cardiovascular, Respiratory, Neurological, Psychiatric, Hem-Onc, Allergic/Immunologic, Gastrointestinal, Gen itourinary, Musculoskeletal, Integumentary, Endocrine and Eyes/Ears/Nose/Throat Exam Surgical H&P Exam: Not Evaluated: HEENT, Not Evaluated: Heart, Not Evaluated: Lungs, Not Evaluated: Extremities, Not Evaluated: Abdomen, Not Evaluated: Skin and Not Evaluated: Neurological Plan Diagnosis/Plan: Unchanged I have reviewed the history and physical and performed a pertinent physical examination on my patient. No changes have occurred unless specified. left L5-S1 microdiskectomy Time Spent With Patient Time: Total time managing care of this patient today __11__ minutes.
[2023-03-11] MEDS: Lactated Ringers 1,000 ML 100 ML IVCONT (12:27)
[2023-03-11] MEDS: Gabapentin 300 MG CAPSULE PO (12:41)
[2023-03-11] MEDS: methocarbamoL 750 MG TABLET PO (12:41)
--- NOTE | 2023-03-11 15:18 | P.DS_ITS ---
DS: Providers Provider Date of Service: 03/11/23 Date of discharge: 03/11/23 Primary care physician: Rudy Zelaya PA-C Admitting clinician: Rebel Jennings DS: Diagnosis Discharge Diagnosis (1) Lumbar disc herniation with radiculopathy: Status: Acute DS: Summary Time Attestation Discharge coordination time: Less than 30 minutes Quality: Safe Use of Opioids Does Pt have an Active Cancer Diagnosis on the Problem List?: No Quality: Stroke Does the patient have a stroke diagnosis?: No Physical Exam Vital Signs: Vital Signs: Last Vital Signs Temp 97.9 F 03/11/23 12:15 Pulse 109 H 03/11/23 12:28 Resp 18 03/11/23 12:15 BP 141/89 H 03/11/23 12:28 Pulse Ox 97 03/11/23 12:15 O2 Del Method Room Air 03/11/23 12:15 BMI result Body Mass Index 31.6 Discharge Plan Discharge Patient Disposition: Home, Self-Care Referrals: Rudy Zelaya PA-C [Primary Care Provider] - 1 Week Discharge Medications: New docusate sodium [Colace] 100 mg capsule 100 mg PO BID Qty: 20 0RF oxycodone 5 mg tablet 5 mg PO Q4H PRN (Reason: pain) Qty: 30 0RF Rx Instructions: Partial Fill upon patient request. Continued albuterol sulfate 90 mcg/actuation HFA aerosol inhaler 1 puff PO QID 30 Days Qty: 8.5 3RF clonazepam [Klonopin] 0.5 mg tablet 0.5 mg PO DAILY PRN (Reason: panic attack(s)) 30 Days Qty: 15 1RF propranolol 10 mg tablet 10 mg PO BID PRN (Reason: Anxiety) quetiapine 25 mg tablet 25 - 50 mg PO BEDTIME betamethasone dipropionate 0.05 % cream 1 appl topical DAILY 30 Days Qty: 45 1RF Discontinued oxycodone 10 mg tablet 10 mg PO Q8H 2 Days Qty: 6 0RF Rx Instructions: Partial Fill upon patient request. Discharge Orders: Discharge Order (Routine); Ordered 03/11/23 Ordered By: Kenji High Diet: Advance to usual diet Activity on Discharge: As tolerated Activity Restrictions/Additional Instructions: After your spinal surgery we ask you to observe the following re strictions/guidelines: Activity: It is normal to feel some discomfort as you increase your activity, but that will improve with time. We ask you avoid heavy lifting or acitivities that cause pain. As a general rule, 8lbs is a safe limit for lifting right after surgery. Walk as much as you feel comfortable but not to exhaustion. You will feel extra tired the first few days after surgery. Stay well hydrated. It is OK to walk up and down stairs You may return to driving when you are off narcotics (such as vicodin, oxycodone, dilaudid, etc), and you are back to normal functional capacity. If you have any concerns please check with office before driving. Return to work is specific to each patient and each surgery, so please speak with your doctor/PA at first follow up. Please bring paperwork such as FMLA at that time if you need it filled out. Medications: For optimum pain control, it is best to start with a combination of 500 mg of Tylenol every 4 hours with 600 mg of Motrin every 8 hours, and use narcotics as needed in between for breakthrough pain. We will give you a short supply of narcotics after surgery (usually one weeks worth). If you need more please call the office but do not use more than prescribed. You will need to give our office 48 hours notice if you need miguel cotics refilled and we do not fill narcotics on weekends or evenings. If you are on a narcotic, it is a good idea to take a stool softener such as colace or senna to avoid constipation If you take blood thinner such as aspirin, Plavix, Coumadin, Effient, Eliquis etc for conditions such as Afib, DVT, Pulmonary embolus, coronary disease, stents etc please speak with your surgeon about specific details as to when you can resume these medications. You can resume NSAIDs on post op day 1 (eg: Motrin, Naproxen, etc). Follow up: Please call the office, , after surgery to arrange a 3 week follow up for wound check. Wound Care: You may remove your dressing on the first day after surgery. ?You may ?leave open to air. Please do not remove the steri strips underneath. they will fall off on their own in one week. IT IS NORMAL FOR THE WOUND TO OOZE OR BE BLOODY FOR A FEW DAYS AFTER SURGERY. ?IF THIS HAPPENS JUST PLACE NEW DRESSING OVER IT TO AVOID STAINING CLOTHES. You may shower on post op day # 1 We ask that you do not let the water soak the wound. If it does get wet, just towel dry lightly. Please do not scrub your incision or place any type of chemical/ointment on the wound. No tub baths, pools or jacuzzis for one month. If you have any leaking or redness from your wound, or fevers, please call office
--- NOTE | 2023-03-11 15:19 | P.OP_ITS ---
Operative Note Operative Note Date of Service: 03/11/23 Narrative: Preoperative diagnosis: Left L5-S1 lumbar radiculopathy due to large disc herniation Postoperative diagnosis: Same Procedure: Left L5-S1 lumbar microdiskectomy with microscope Surgeon: Rebel Jennings MD, PhD Cytology Technologist: JOESPH Norman This 37-year-old male is suffering from severe left lumbar radiculopathy due to large extruded fragment that expense behind the body of L5 and compressing the L5 nerve root and distally towards the S1 nerve root. The patient was offered a lumbar microdiskectomy to decompress the nerve roots. The procedure complications were explained. The patient was consented. The patient was brought to the operating room and endotracheally intubated. The patient was turned in a prone position on the Siddhartha frame. Prepping and draping was done followed by time-out. A mid lumbar incision was made followed by release of the paravertebral muscles on the left side to expose the L5-S1 interspace. An intraoperative x-rays obtained to confirm the correct level. The microscope was brought in. A left L5 monica laminotomy was done followed by opening of the flavum ligament. Immediately, I encountered disc material which was removed in 2 large pieces. The total length was approximately 3 cm and 2 cm wide when the disc fragments were removed the S1 nerve root became visible and was pulsating as a sign of relief. Further inspection was done and other than a disc bulge no free fragments were found. Hemostasis was done. The microscope was removed. Marcaine was injected intramuscularly.The incision was closed in two layers. Steri-Strips used to approximate seizure. An op-site were taken there was used to cover the incision. All sponge and needle counts were correct. Patient was extubated and transported in stable condition to recovery room. this procedure was done with the aid of a physician child and youth program assistant who performed the initial exposure until the microscope was brought in and performed the closure of the incision. Anesthesia: General Blood loss: 40 mL Complications: None Specimen: None Surgical time: Less than 60 minutes Disposition: Discharge home
[2023-03-11] MEDS: oxyCODONE HCl Immed Release 5 MG TABLET 10 MG PO (15:49)
== END 2023-03-11 16:53 | disposition home or self-care (01) ==
PROVIDERS: PCP Physician Assistant; Visit Provider Neurological Surgery
PROC: (CPT 63030; principal; 2023-03-11 13:50)
DX: M51.16 Intervertebral disc disorders with radiculopathy, lumbar region (principal); M54.50 Low back pain, unspecified; R20.0 Anesthesia of skin; R20.2 Paresthesia of skin; N30.10 Interstitial cystitis (chronic) without hematuria; E78.5 Hyperlipidemia, unspecified; J45.909 Unspecified asthma, uncomplicated; K21.9 Gastro-esophageal reflux disease without esophagitis; N52.9 Male erectile dysfunction, unspecified; Z98.890 Other specified postprocedural states; F41.9 Anxiety disorder, unspecified; Z79.899 Other long term (current) drug therapy
CPT/HCPCS: 63030; J0131; J0690; J1100; J1885; J2405; J3010

== ENCOUNTER → 2023-03-11 11:58 | Outpatient (BNV) | payer BC, SELFPAY | PROVIDERS: PCP Physician Assistant; Visit Provider Physician Assistant | DX: M51.16 Intervertebral disc disorders with radiculopathy, lumbar region (principal) | CPT/HCPCS: 63030; 99499 ==

== ENCOUNTER 2023-03-21 11:17 | Inpatient (IN) | payer BC, OTHER, SELFPAY ==
[2023-03-21] VITALS (8 sets, daily range): BP systolic 118–150; BP diastolic 68–92; PULSE 80–99; RESP 16–21; TEMP 36.4–37.1; O2SAT 94–100; BMI 35.1
--- NOTE | ~2023-03-21 | XR_ITS ---
EXAMINATION: XR CHEST CLINICAL INFORMATION: Status post chest tube placement. COMPARISON: Chest x-ray 922 TECHNIQUE: Frontal view of the chest was obtained. FINDINGS: There is a right-sided pigtail catheter insertion with the tip in the mid hemithorax. There is a small at least 10-15% right apical pneumothorax seen. Also visualized is left pneumothorax extending along lateral thoracic cavity. There is extensive subcutaneous emphysema. There is tracheostomy tube with its tip approximately 5.4 cm above the lamin. The lungs are hyperexpanded without consolidation. There is a small pneumomediastinum as well. No visible bony fracture. XR/XR chest 1V IMPRESSION: Tracheostomy tube tip 5.4 cm above the laimn. New right chest tube in mid thoracic cavity. There is 10-15% right apical pneumothorax. Also visualized is left sided pneumothorax with mild left lung compression. Small pneumomediastinum. Extensive subcutaneous emphysema along the chest wall and neck.
--- NOTE | ~2023-03-21 | XR_ITS ---
EXAMINATION: XR CHEST CLINICAL INFORMATION: Post cardiac arrest. COMPARISON: None available. TECHNIQUE: Frontal view of the chest was obtained. FINDINGS: The heart size enlarged with normal-appearing hair vascularity. The lungs are expanded with patchy opacity in both lung bases. There is bilateral pneumothorax is an likely pneumomediastinum as well. There is moderate to extensive subcutaneous emphysema in anterior chest wall. XR/XR chest 1V IMPRESSION: 1. Bilateral pneumothorax and pneumomediastinum. There is moderate to extensive subcutaneous emphysema in the anterior chest wall. 2. Patchy opacity in both lung bases likely atelectasis. 3. Mild cardiomegaly.
--- NOTE | ~2023-03-21 | MR_ITS ---
EXAMINATION: MR BRAIN WITHOUT CONTRAST CLINICAL INFORMATION: Persistent encephalopathy after cardiac arrest. COMPARISON: Head CT dated 04/02/2023 and brain MRI from 03/28/2023. TECHNIQUE: Multiplanar, multisequence imaging of the brain was performed without contrast. FINDINGS: There is abnormal T1 and T2 hyperintense signal in the basal ganglia and thalami bilaterally with signal abnormality as well on diffusion imaging in the basal ganglia bilaterally. Volume loss is also now evident within the basal ganglia, compared to the prior MRI study, consistent with the late subacute sequelae of ukxuyrok-[id number]-[id number] hypoxic ischemic encephalopathy. Previous subtle diffusion signal abnormality in the hippocampi and perirolandic cortices has resolved. There is now volume loss in the mesial temporal lobes and deep brain parenchyma with prominence of the sylvian fissures and ex vacuo dilatation of the ventricles. There are new holohemispheric tiny subdural collections versus pachymeningeal thickening which are isointense to brain parenchyma on the T1 and T2 FLAIR-weighted acquisitions, measuring up to 2 mm in thickness. No mass effect or midline shift is evident. Additionally, there is a new round 5 mm lesion with minimal ring-like surrounding T2 hyperintense signal abnormality and a peripheral rim of low signal on gradient imaging. Centrally, the lesion is T2 hyperintense and demonstrates subtle diffusion signal abnormality. The brainstem and cerebellum are normal. The craniovertebral junction, marrow signal, and midline structures are normal. The major intracranial flow voids at the level of the [place] of [place] are preserved. The dural venous sinus flow voids are maintained. There are significant bilateral mastoid effusions. Qsvl-ik-wqezbvxm right sphenoid sinus mucosal thickening noted with aerosolized secretions. Milder mucosal thickening also evident elsewhere in the paranasal sinuses. MR/MR head/brain wo con IMPRESSION: Imaging findings consistent with the sequelae of late subacute szgyeipw-rg-gwlrli hypoxic ischemic brain injury. Volume loss and signal changes in the deep hernandez matter structures and bilateral hippocampi as described. New small bilateral holohemispheric subdural collections versus pachymeningeal thickening. Query for any history of a recent lumbar puncture, as findings can be seen in the setting of spontaneous intracranial hypotension. Findings are otherwise of indeterminate etiology. New solitary, small 5 mm round lesion at the hernandez-white matter junction in the left parietal lobe with a halo of signal abnormality and perceived central restricted diffusion, which may reflect a microabscess. Imaging findings reported to Dr. Hernandes at 6:35 PM on 04/17/2023.
--- NOTE | ~2023-03-21 | US_ITS ---
CLINICAL HISTORY: Concern for acute cholecystitis PROCEDURES: 1. Limited preprocedure ultrasound of the abdomen. Permanent images saved in PACS. 2. Ultrasound guided core cholecystostomy tube placement. 3. Limited post procedure ultrasound of the abdomen. Permanent images taken PACS. CLINICIANS: Russell Nunez PA-C Preprocedural imaging reviewed with Dr. Ordaz MEDICATIONS: -lidocaine 1% 10 mL SQ -Antibiotics: None -For additional details, please see nursing flowsheet. COMPLICATIONS: None ESTIMATED BLOOD LOSS: < 5 ml CONTRAST: None SPECIMENS: A sample of bile was sent for culture PROCEDURE NOTE: The procedure, risks, benefits, and alternatives were carefully explained to the patient's father and written informed consent was obtained. The patient was placed on his ICU bed. A timeout was performed. A limited ultrasound of the abdomen was performed to localize the gallbladder and choose appropriate needle entry and trajectory. The patient was prepped and draped in usual sterile fashion. The skin and subcutaneous tissues were anesthetized with lidocaine. Under ultrasound guidance, a 5 [place] TIMPIKeh catheter was advanced into the gallbladder. Bile was immediately aspirated. A 0.035 wire was inserted through the catheter and coiled within the gallbladder. The access catheter was removed, the tract was serially dilated. . Over the wire, an 8 [place] all-purpose drainage catheter was advanced and coiled within the gallbladder. The wire was then removed. 60 mL of thick dark bile was aspirated from the gallbladder. A specimen was sent for culture. A 3-0 nylon suture was used to secure the drain to the skin. A dry dressing was applied and secured with Tegaderm. A post procedure ultrasound was then pain. US/US drain visceral Impression: Ultrasound-guided cholecystostomy tube This procedure was performed by Russell Nunez PA-C and supervised by Dr. Ordaz.
--- NOTE | ~2023-03-21 | CT_ITS ---
EXAMINATION: CT CHEST WITHOUT CONTRAST CLINICAL INFORMATION: Question of hemothorax COMPARISON: CT chest dated 04/02/2023. Prior radiographs from 04/15/2023 and 04/10/2023 TECHNIQUE: Multidetector volumetric CT imaging of the chest was done. Axial MIP volume rendering provided. Sagittal and coronal reformatted images were obtained. This CT examination was performed using dose optimization techniques as appropriate, variously including the following: *Automated exposure control *Adjustment of mA and/or kV according to patient size (this includes techniques or standardized protocols for targeted exams where dose is matched to indication/reason for exam; i.e. extremities or head) *Use of iterative reconstruction technique DLP: 517 mGy-cm FINDINGS: LUNGS/PLEURA: Small to moderate right and small left pneumothoraces. Partial collapse of the right upper lobe posterior segment, and dependent right lower lobe. Diffuse atelectasis/collapse of the left lower lobe. Patchy opacities in the anterior segment of the left upper lobe. Trace left pleural effusion. No pneumothorax. A right pleural pigtail catheter coils along the posterior mid right hemithorax. Endotracheal tube terminates 2.5 cm above the lamin. MEDIASTINUM: Extensive pneumomediastinum, with gas extending into the neck. Moderate cardiomegaly. No pericardial effusion. CORONARY ARTERY CALCIFICATION: Present. CHEST WALL/AXILLA: Extensive chest wall emphysema UPPER ABDOMEN: Hepatosplenomegaly. Hepatic steatosis. Trace intraperitoneal free air, likely related to intraperitoneal dissection of either the chest wall emphysema or pneumomediastinum. OSSEOUS STRUCTURES: No acute or suspicious osseous abnormalities. CT/CT chest wo IV con IMPRESSION: * Small-moderate right and small left pneumothoraces. * Partial collapse of the right upper lobe and dependent right lower lobe. * Diffuse atelectasis/collapse of the left lower lobe. * Trace left pleural effusion. No hemothorax. * New patchy opacities in the anterior segment of the left upper lobe, likely infectious/inflammatory in etiology. * Extensive pneumomediastinum and chest wall emphysema. * Trace intraperitoneal free air, likely related to intraperitoneal dissection of either the chest wall emphysema or pneumomediastinum. * Hepatosplenomegaly and hepatic steatosis. Fleischner guidelines were followed.
--- NOTE | ~2023-03-21 | XR_ITS ---
EXAMINATION: XR CHEST CLINICAL INFORMATION: Status post tracheostomy COMPARISON: Examination of the previous day. TECHNIQUE: Frontal view of the chest was obtained. FINDINGS: ET tube has been removed. A tracheostomy has been placed with distal tip 4.4 cm above the lamin. A right-sided central line maintains position. Consolidation in the retrocardiac left base appears increased since the previous evaluation. There may be some blunting in the left costophrenic angle suggestive of effusion. NG tube has been removed. XR/XR chest 1V IMPRESSION: Consolidation in the retrocardiac base appears increased since the previous evaluation. There may be a left pleural effusion. Tracheostomy tube placed as noted above. Right-sided central line maintains position.
--- NOTE | ~2023-03-21 | XR_ITS ---
EXAMINATION: XR CHEST CLINICAL INFORMATION: Dyspnea COMPARISON: None available. TECHNIQUE: Frontal view of the chest was obtained. FINDINGS: No convincing evidence for an acute finding. Low lung volumes, lordotic film and this limits the exam. No convincing evidence for an infiltrate. There is no evidence for failure The cardiac silhouette is within normal limits. The hilar structures do not appear pathologically enlarged. XR/XR chest 1V IMPRESSION: No convincing evidence for an acute process
--- NOTE | ~2023-03-21 | CT_ITS ---
EXAMINATION: CT ABDOMEN AND PELVIS WITH CONTRAST CLINICAL INFORMATION: Distended abdomen. Status post cardiac arrest. COMPARISON: None available. TECHNIQUE: Multidetector volumetric images were obtained from the superior aspect of the liver through the pubic symphysis following administration 85 mL of Omnipaque 350 intravenous contrast. Sagittal and coronal reformatted images were obtained on the technologist's workstation. Oral contrast: No This CT examination was performed using dose optimization techniques as appropriate, variously including the following: *Automated exposure control *Adjustment of mA and/or kV according to patient size (this includes techniques or standardized protocols for targeted exams where dose is matched to indication/reason for exam; i.e. extremities or head) *Use of iterative reconstruction technique DLP: 1966 mGy-cm FINDINGS: LUNG BASES: There is consolidation at the left lung base. LIVER, GALLBLADDER, AND BILIARY TREE: The liver is of diffuse heterogeneous diminished attenuation and irregular in contour. The liver is enlarged measuring up to 25 cm. No definitive focal liver lesions are seen. There is no intrahepatic biliary duct dilatation. There is some dense material within the gallbladder. PANCREAS: Unremarkable. SPLEEN: Unremarkable. ADRENAL GLANDS: Unremarkable. KIDNEYS AND URETERS: The kidneys are normal in size, shape, and attenuation. No hydronephrosis, hydroureter, or calculi seen. No perinephric stranding. BLADDER: Decompressed with a Chavez catheter in place. GASTROINTESTINAL TRACT: A rectal tube is in place. There are dilated proximal small bowel loops measuring up to 4.4 cm gradually tapering to more normal caliber bowel distally. There is no abrupt transition point noted. A gastric tube extends to the region of the duodenal bulb. ABDOMINAL WALL: No significant hernia is appreciated. LYMPH NODES: Normal. VASCULAR: Unremarkable. PELVIC VISCERA: The small amount of free fluid within the abdomen and pelvis. OSSEOUS STRUCTURES: Unremarkable. CT/CT abdomen pelvis w IV con IMPRESSION: Significant consolidation at the left lung base most suspicious for atelectasis. A component of infiltrate is a consideration. Large fatty infiltrated and irregular liver suggests hepatocellular disease/early cirrhosis. Small amount of ascites. Dilated proximal small bowel loops gradually tapering to more normal caliber bowel without definitive transition point. Findings may related to a significant ileus. A component of developing obstruction is a consideration. Follow-up suggested. Dense material within the gallbladder possibly sludge and/or small calculi versus vicarious excretion of contrast. Fleischner guidelines were followed.
--- NOTE | ~2023-03-21 | XR_ITS ---
EXAMINATION: XR CHEST XR ABDOMEN CLINICAL INFORMATION: Hypoxia, ileus. COMPARISON: Chest radiograph 03/29/2023. CT abdomen/pelvis 03/26/2023. TECHNIQUE: AP view of the chest was obtained. FINDINGS: Endotracheal tube terminates at 4 cm above the lamin. Enteric tube side-port and tip projects at the level of the stomach. Stable prominence of the cardiomediastinal silhouette. Unchanged central vascular engorgement. Stable bibasilar airspace opacities, as well as trace bilateral pleural effusions. No pneumothorax. 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 Cecum measures 11.2 cm. Transverse colon diameter is difficult to measure due to motion. No acute osseous findings. Chavez catheter seen. XR/XR KUB IMPRESSION: 1. Endotracheal tube terminates at 4 cm above the lamin. 2. Stable bibasilar airspace opacities and trace bilateral pleural effusions. 3. Decreased gaseous distention of the small bowel with similar to slightly increased gaseous distention of the colon compared to 03/26/2023. Continued follow-up recommended.
--- NOTE | ~2023-03-21 | XR_ITS ---
EXAMINATION: XR CHEST CLINICAL INFORMATION: OG tube/ET tube placement. COMPARISON: 03/22/2023 TECHNIQUE: Frontal view of the chest was obtained. FINDINGS: ET tube terminates 4.5 cm from the lamin. Enteric tube extends into the stomach and off the inferior border of the study. Defibrillator pad overlies the right hemithorax. Lung volumes are low. There is new complete lobar opacification of the right upper lobe, most consistent with right upper lobe collapse. This is new as compared to prior. Mild atelectasis at the left lower lobe. No effusion or pneumothorax. No acute osseous findings. XR/XR chest 1V IMPRESSION: 1. ET tube terminates 4.5 cm from the lamin. 2. Enteric tube extends into the stomach. 3. New right upper lobe collapse. 4. Mild left lower lobe atelectasis. 5. Low lung volumes.
--- NOTE | ~2023-03-21 | XR_ITS ---
EXAMINATION: XR CHEST CLINICAL INFORMATION: ET tube change COMPARISON: Previous chest x-ray 04/03/2023 TECHNIQUE: Frontal view of the chest was obtained. FINDINGS: There is an endotracheal tube tip 4.5 cm above the lamin. There is a nasogastric tube that projects over the stomach, tip is not seen. There is a right jugular line with tip projecting over SVC. There is interval improvement in bibasilar airspace compared to April 03 chest x-ray. No significant pleural effusion. No pneumothorax. XR/XR chest 1V IMPRESSION: Satisfactory position of ET tube. Improving bibasilar airspace.
--- NOTE | ~2023-03-21 | XR_ITS ---
EXAMINATION: XR CHEST XR ABDOMEN CLINICAL INFORMATION: Hypoxia, ileus. COMPARISON: Chest radiograph 03/29/2023. CT abdomen/pelvis 03/26/2023. TECHNIQUE: AP view of the chest was obtained. FINDINGS: Endotracheal tube terminates at 4 cm above the lamin. Enteric tube side-port and tip projects at the level of the stomach. Stable prominence of the cardiomediastinal silhouette. Unchanged central vascular engorgement. Stable bibasilar airspace opacities, as well as trace bilateral pleural effusions. No pneumothorax. 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 Cecum measures 11.2 cm. Transverse colon diameter is difficult to measure due to motion. No acute osseous findings. Chavez catheter seen. XR/XR chest 1V IMPRESSION: 1. Endotracheal tube terminates at 4 cm above the lamin. 2. Stable bibasilar airspace opacities and trace bilateral pleural effusions. 3. Decreased gaseous distention of the small bowel with similar to slightly increased gaseous distention of the colon compared to 03/26/2023. Continued follow-up recommended.
--- NOTE | ~2023-03-21 | XR_ITS ---
EXAMINATION: XR CHEST CLINICAL INFORMATION: Right internal jugular placement. COMPARISON: Examination of the previous day. TECHNIQUE: Frontal view of the chest was obtained. The extreme apices are excluded from the film. FINDINGS: ET tube in position 5.9 cm above the lamin. The NG tube descends to the left upper quadrant likely at the level of the stomach, with its distal tip not seen. A right internal jugular line has been placed with distal tip likely at the proximal SVC, without any evidence for pneumothorax. Right basilar atelectatic changes noted previously appear to be improved. Patchy opacities in the medial retrocardiac left base persist. There is blunting in the left costophrenic angle which may reflect an effusion. XR/XR chest 1V IMPRESSION: Right IJ line placed likely at the proximal SVC, without any evidence for pneumothorax. Other support tubes in position as described. Right base atelectasis appears improved, with persistent patchy opacities in the medial retrocardiac left base.
--- NOTE | ~2023-03-21 | CT_ITS ---
EXAMINATION: CT ABDOMEN AND PELVIS WITHOUT CONTRAST CLINICAL INFORMATION: Ileus or small bowel obstruction COMPARISON: CT abdomen and pelvis 03/23/2023 TECHNIQUE: Multidetector volumetric imaging was performed from the superior aspect of the liver through the pubic symphysis. Sagittal and coronal reformatted images were obtained on the technologist's workstation. This CT examination was performed using dose optimization techniques as appropriate, variously including the following: *Automated exposure control *Adjustment of mA and/or kV according to patient size (this includes techniques or standardized protocols for targeted exams where dose is matched to indication/reason for exam; i.e. extremities or head) *Use of iterative reconstruction technique DLP: 1247 mGy-cm FINDINGS: LUNG BASES: New small bilateral pleural effusions. New right basilar consolidation and volume loss suggesting atelectasis. Similar dense left lower lobe consolidation with volume loss suggesting atelectasis with patchy consolidation in the base of the left upper lobe which may reflect superimposed infection or aspiration. ABDOMINAL AND PELVIC WALL: Mild symmetric gynecomastia. Mild anasarca. LIVER AND BILIARY TREE: Markedly heterogeneous and hypoattenuating hepatic parenchyma suggesting hepatic steatosis of the background heterogeneity limits evaluation for discrete liver lesion. Liver is enlarged measuring 26.4 cm in span. Nodular hepatic contour suggestive of cirrhosis. GALLBLADDER: Dense material in the gallbladder lumen may reflect combination of sludge and stones or prior vicarious excretion of contrast within the gallbladder. PANCREAS: There is some haziness of the fat surrounding the pancreas with small volume free fluid, though nonspecific in the setting of ascites, recommend correlation with lipase and symptoms of pancreatitis. SPLEEN: The spleen is enlarged measuring 15.7 cm in span. ADRENAL GLANDS: Unremarkable. KIDNEYS AND URETERS: Unremarkable. GASTROINTESTINAL TRACT: Enteric tube tip terminates in the gastric body. Rectal tube in place. There are multiple dilated thick-walled loops of small bowel again seen which relatively gradually taper to decompressed loops of small bowel in the left lower quadrant, 3:69. Some of the loops of bowel demonstrate some subtle angulation or matted appearance however without andreas transition point. Some of the enteric contrast has passed into the colon. The appendix is normal in caliber. VASCULAR: Few dilated mesenteric collateral vessels suggesting portal hypertension. LYMPH NODES/PERITONEUM: No lymphadenopathy. FREE FLUID: Small volume ascites similar to prior. BLADDER: Unremarkable. PELVIC VISCERA: Unremarkable. OSSEOUS STRUCTURES: Unremarkable. CT/CT abdomen pelvis wo IV con IMPRESSION: 1. There are multiple dilated thick-walled loops of small bowel again seen which relatively gradually taper to decompressed loops of small bowel in the left lower quadrant, though some of the loops demonstrates some subtle angulation or matted appearance suggesting underlying adhesions there is no andreas transition point. Some of the enteric contrast has passed into the colon. Findings may combination of ileus/enteritis given the gradual tapering of bowel though a low grade bowel obstruction is considered less likely given suspected presence of adhesions. 2. There is some haziness of the fat surrounding the pancreas with small volume free fluid, though nonspecific in the setting of ascites, recommend correlation with lipase and symptoms of pancreatitis. 3. New small bilateral pleural effusions. New right basilar consolidation and volume loss suggesting atelectasis. Similar dense left lower lobe consolidation with volume loss suggesting atelectasis with patchy consolidation in the base of the left upper lobe which may reflect superimposed infection or aspiration. 4. Markedly heterogeneous and hypoattenuating hepatic parenchyma suggesting hepatic steatosis of the background heterogeneity limits evaluation for discrete liver lesion. Nodular hepatic contour suggestive of cirrhosis. 5. Splenomegaly, dilated mesenteric collateral vessels and small volume ascites suggesting portal hypertension. 6. Dense material in the gallbladder lumen may reflect combination of sludge and stones or prior vicarious excretion of contrast within the gallbladder.
--- NOTE | ~2023-03-21 | CT_ITS ---
EXAMINATION: CT ABDOMEN AND PELVIS WITHOUT CONTRAST CLINICAL INFORMATION: Persistent abdominal distention. COMPARISON: CT abdomen and pelvis 03/23/2023. TECHNIQUE: Multidetector volumetric imaging was performed from the superior aspect of the liver through the pubic symphysis. Sagittal and coronal reformatted images were obtained on the technologist's workstation. This CT examination was performed using dose optimization techniques as appropriate, variously including the following: *Automated exposure control *Adjustment of mA and/or kV according to patient size (this includes techniques or standardized protocols for targeted exams where dose is matched to indication/reason for exam; i.e. extremities or head) *Use of iterative reconstruction technique DLP: 1058 mGy-cm FINDINGS: LUNG BASES: There are bilateral lower lobe consolidations and small pleural effusions likely from aspiration pneumonia. Heart size is borderline normal. There is enteric tube with its tip in the mid stomach. LIVER, GALLBLADDER, AND BILIARY TREE: The liver is diffusely attenuated, lobulated contour and mild hepatomegaly subsequently of cirrhosis. Minimal perihepatic fluid collection seen. There are signs of portal hypertension with prominent varicose veins at the venessa hepatis, inferior to the liver. Again visualized is hyperdense material within the gallbladder wall likely combination of sludge, cyst stones or vicarious excretion of previously noted IV contrast. PANCREAS: The pancreas is unremarkable. SPLEEN: Spleen is mildly enlarged. ADRENAL GLANDS: Unremarkable. KIDNEYS AND URETERS: The kidneys are normal in size, shape, and attenuation. No hydronephrosis, hydroureter, or calculi seen. No perinephric stranding. BLADDER: The bladder is nondistended with a Chavez's catheter within. GASTROINTESTINAL TRACT: Again visualized is distended entire colon especially ascending and transverse colon with air-fluid levels. Also visualized are distended small bowel loops with air-fluid levels. Some of the small bowel segments are nondistended in the upper no transition point is seen to suspect any dynamic obstruction. There is most likely persistent small bowel and colonic ileus. No free air or pneumatosis seen. Minimal perihepatic fluid was noted. ABDOMINAL WALL: Prominent bilateral inguinal canals containing fat. LYMPH NODES: Normal. VASCULAR: Unremarkable. PELVIC VISCERA: Unremarkable. OSSEOUS STRUCTURES: No aggressive lytic or sclerotic process. CT/CT abdomen pelvis wo IV con IMPRESSION: Distended colon and small bowel loops more suggestive of persistent diffuse ileus. There is some oral contrast seen in the mid jejunum suggestive of slow peristalsis. There is no pneumatosis or pneumobilia to suspect ischemic changes. No mural thickening is visualized at this time. Enteric tube is in mid stomach and a Chavez's catheter in urinary bladder. There is a diffuse hepatic steatosis, hepatomegaly, splenomegaly with portal hypertension. There is small amount of free fluid in the pelvis and right perihepatic space. Results were discussed by phone with Dr. Hernandes at 4:00 PM Fleischner guidelines were followed.
--- NOTE | ~2023-03-21 | CT_ITS ---
EXAMINATION: CT HEAD WITHOUT CONTRAST CLINICAL INFORMATION: Encephalopathy. COMPARISON: MRI brain 03/28/2023 TECHNIQUE: Contiguous axial imaging was performed from the skull base to vertex without intravenous administration of contrast. This CT examination was performed using dose optimization techniques as appropriate, variously including the following: *Automated exposure control *Adjustment of mA and/or kV according to patient size (this includes techniques or standardized protocols for targeted exams where dose is matched to indication/reason for exam; i.e. extremities or head) *Use of iterative reconstruction technique DLP: 2276 mGy-cm FINDINGS: There is no acute intra-axial, extra-axial bleed, masses or midline shift. There is no acute infarction evolution. There is no edema. The lateral ventricles are symmetrical in size and configuration without enlargement. The hernandez to white matter differentiation is maintained normal. Bone windows reveal no calvarial abnormality. There is no scalp soft tissue abnormality either. There is mild deviation of nasal septum to the right with mucoperiosteal thickening bilateral sphenoid, posterior ethmoid, right anterior ethmoid and maxillary sinuses. CT/CT head/brain wo IV con IMPRESSION: No acute intracranial process seen. Chronic right maxillary, bilateral posterior ethmoid and sphenoid sinuses.
--- NOTE | ~2023-03-21 | XR_ITS ---
EXAMINATION: XR CHEST CLINICAL INFORMATION: Questionable mucous plugging COMPARISON: CT chest of the same day area. TECHNIQUE: Frontal view of the chest was obtained. FINDINGS: There is endotracheal tube with the tip 7.2 cm above the lamin and nasogastric tube is in the stomach. There is low lung volume bilaterally with bibasilar airspace disease with prominent air bronchogram. Cardiomediastinal silhouette is normal. XR/XR chest 1V IMPRESSION: Bibasilar airspace disease and well positioned support tubes and lines
--- NOTE | ~2023-03-21 | US_ITS ---
EXAMINATION: US ABDOMEN LIMITED CLINICAL INFORMATION: Fever with gallstones and question of acute cholecystitis. COMPARISON: CT scan abdomen pelvis earlier today TECHNIQUE: Real-time imaging of the gallbladder and common bile duct. FINDINGS: GALLBLADDER: The gallbladder is distended with a thickened wall of 5 mm. Echogenic bile is present in the gallbladder along with stones which are better visualized on the CT scan as a are calcified. Small amount of pericholecystic fluid is present. Ji's sign could not be evaluated as the patient was sedated in the ICU. COMMON BILE DUCT: Could not be visualized. US/US abdomen limited IMPRESSION: Findings suggestive acute cholecystitis with stones and sludge in the thick-walled gallbladder with a small amount of pericholecystic fluid. Ji's sign could not be evaluated as the patient was sedated in the ICU. A HIDA scan might be useful for further evaluation.
--- NOTE | ~2023-03-21 | XR_ITS ---
EXAMINATION: XR CHEST CLINICAL INFORMATION: Reason for Exam hypoxia COMPARISON: Chest radiograph 03/22/2020 TECHNIQUE: One view of the chest FINDINGS: Lines and tubes: Enteric tube courses below the level of the diaphragm, tip not imaged. EKG leads overlie the patient. Endotracheal tube tip terminates approximately 5.3 cm above the lamin. Interval improvement in aeration with resolution of previously seen right upper lobe collapse with a few persistent streaky bibasilar opacities which may reflect atelectasis. No pleural effusion. No pneumothorax. Unchanged cardiomediastinal silhouette. XR/XR chest 1V IMPRESSION: 1. Endotracheal tube tip terminates approximately 5.3 cm above the lamin. 2. Interval improvement in aeration with resolution of previously seen right upper lobe collapse with a few persistent streaky bibasilar opacities which may reflect atelectasis.
--- NOTE | ~2023-03-21 | XR_ITS ---
EXAMINATION: XR CHEST CLINICAL INFORMATION: Shortness of breath COMPARISON: Chest x-ray on 03/28/2023 at 0645 hours TECHNIQUE: AP portable supine chest x-ray obtained on 03/29/2023 at 1020 hours. FINDINGS: vascularity. LUNGS: Lungs are markedly hypoinflated. Asymmetric hazy alveolar density is seen in the right lung base. Left lateral lung base is excluded from the [id number]. No pneumothorax is seen. Endotracheal tube is seen ending at 5.2 cm above lamin. Enteric tube is seen passing to the abdomen. XR/XR chest 1V IMPRESSION: 1. Persistent mild cardiomegaly without radiographic signs of congestive heart failure. 2. Interval increase in right lung base hazy alveolar infiltrates. 3. No interval change in position of endotracheal tube and enteric tube. 4. The current examination is limited by position and exclusion of left lateral lung base from the [id number].
--- NOTE | ~2023-03-21 | US_ITS ---
EXAMINATION: US ABDOMEN LIMITED CLINICAL INFORMATION: Evaluate portal venous thrombosis. COMPARISON: None available. TECHNIQUE: Real-time imaging of the right upper quadrant abdominal viscera. FINDINGS: Limited examination secondary to patient body habitus and shadowing from overlying bowel gas. PANCREAS: Not well seen. LIVER: Enlarged liver with heterogeneous and increased parenchymal echogenicity. Possible subtle contour nodularity. No intrahepatic biliary ductal dilatation. No discrete mass, although evaluation is limited as above. GALLBLADDER: Hydropic gallbladder. Gallbladder wall thickening and edema measuring up to 0.6 cm. Layering sludge. No discrete cholelithiasis. Negative Ji's sign. COMMON BILE DUCT: Not well seen. RIGHT KIDNEY: No hydronephrosis. No renal calculi or focal parenchymal lesions. The kidney measures 11.5 cm in maximum dimension. FREE FLUID: None. ADDITIONAL FINDINGS: Splenomegaly measuring 15 cm in length. Patent main portal vein with hepatofugal flow. Trace volume of ascites. US/US abdomen limited IMPRESSION: Limited examination secondary to patient body habitus and shadowing from overlying bowel gas. 1. Hepatosplenomegaly. 2. Findings suspicious for liver cirrhosis with heterogeneous parenchyma and nodular contour. 3. Portal hypertension manifested as hepatofugal main portal venous flow, splenomegaly and trace ascites. 4. Hydropic gallbladder with layering sludge. Gallbladder wall thickening is nonspecific in the setting of portal hypertension and ascites. Recommend clinical correlation for acute cholecystitis.
--- NOTE | ~2023-03-21 | MR_ITS ---
MRI OF THE BRAIN WITHOUT IV CONTRAST INDICATION: Persistent encephalopathy, after cardiac arrest COMPARISON: MRI brain on 06/13/2010 TECHNIQUE: Multiplanar multisequence MR imaging of the brain was obtained without IV contrast. FINDINGS: No acute intracranial hemorrhage or infarct. Scattered and confluent periventricular white matter T2/FLAIR hyperintensities, nonspecific however commonly seen with small vessel ischemic disease. No midline shift or hydrocephalus. No acute extra-axial fluid collections. The osseous structures are unremarkable. The pituitary gland, pineal gland and remaining midline structures are unremarkable. No orbital pathology. Mucosal thickening of the paranasal sinuses with near complete opacification of the right sphenoid sinus. Bilateral mastoid effusions. MR/MR head/brain wo con IMPRESSION: 1. No acute intracranial findings.
--- NOTE | ~2023-03-21 | XR_ITS ---
EXAMINATION: XR CHEST CLINICAL INFORMATION: Post cardiac arrest. COMPARISON: Chest radiograph earlier today at 6:20 AM. TECHNIQUE: Frontal view of the chest was obtained. FINDINGS: An endotracheal tube is not seen. An enteric tube courses into the abdomen and terminates outside of the [id number]. Stable prominence of the cardiomediastinal silhouette. Low lung volumes accentuating lung markings. New mild focal asymmetric haziness in the lateral left lower lobe. No significant pleural effusion or pneumothorax. No displaced rib fractures. XR/XR chest 1V IMPRESSION: 1. An endotracheal tube is not seen. 2. New focal asymmetric haziness in the lateral left lower lobe which could be related with aspiration, pneumonia or atelectasis. 3. No significant pleural effusion or pneumothorax. 4. No displaced rib fractures.
--- NOTE | ~2023-03-21 | CT_ITS ---
Examination: CT chest, CT abdomen and pelvis without IV contrast. Question Clinical indications: Infection. COMPARISON: CT abdomen and pelvis 03/26/2023 TECHNIQUE: 5 mm thin axial and reformatted 3 mm thin sagittal and coronal images of chest, abdomen and pelvis were obtained without contrast. DLP 2275. This CT examination was performed using dose optimization technique as appropriate, variously including the following: Automated exposure control Adjustment of MA and/or KV according to patient size(this includes techniques or standardized protocols for targeted exams where dose is matched to indication/reason for exam; extremities or head. Use of iterative reconstruction techniques. FINDINGS: CHEST: LUNGS: The lungs are expanded with bilateral lower lobe consolidations likely etiology of infection. There is no pulmonary nodule, mass or groundglass density. Mediastinum: Heart size is enlarged. Great vessels are normal caliber. There is an enteric tube with its tip below diaphragm in stomach. Central trachea and the bronchi widely patent. The endotracheal tube tip is 3.2 cm above the lamin. No pericardial effusion seen. There is mild coronary artery calcification. Pleura: There is no pleural effusion, thickening or calcification. Axilla: No abnormal size axillary lymph nodes. The chest wall is unremarkable. Osseous structures: Unremarkable. Abdomen and pelvis: Liver, ducts and gallbladder: The liver is enlarged measuring 27 cm. Images diffusely attenuated without any focal lesion. There are radiopaque gallstone with hyperdense gallbladder sludge.. There is no wall thickening. Spleen: Unremarkable. Pancreas: Unremarkable. Adrenal glands: Unremarkable. Kidneys: Both kidneys are normal size, shape and position. No radiopaque renal calculi or hydronephrosis seen. Lymphovascular structures: Abdominal aorta is normal caliber. Small shotty lymph nodes are seen in the aortocaval region. GI tract: There is distended colon with gas, nonspecific. The small bowel loops are normal caliber. Appendix is not visualized. There is bilateral inflated rectal tube. Pelvis: There is a balloon inflated Chavez's catheter in an empty bladder.. There is no free fluid. No abnormal pelvic lymph nodes or hernia. Abdominal wall: There is mild fat stranding bilateral superficial abdominal wall in the pelvic region. CT/CT abdomen pelvis wo IV con IMPRESSION: Bilateral lower lobe consolidations. Mild gaseous distention of colon but no obstructive etiology seen. Endotracheal tube, enteric tube, rectal tube and Chavez's catheter are in satisfactory position. There are gallstones and hyperdense sludge/gravel
--- NOTE | 2023-03-21 12:25 | PC.NURSE ---
vss and up to date at this time. nsr on the patient monitor. pt still verbalizing 10/10 lower back pain s/p surgical procedure on 03/11. pt states that he is feeling shaky - last drink was around 1000 this am. tech bedside attempting to obtain labs. respirations remain even and unlabored. partner bedside. call sagastume placed within reach.
[2023-03-21 12:40] LABS: MANUAL DIFF FLAG NO
[2023-03-21 12:43] LABS: Basophils Absolute Auto 0.1 X10*3/uL (0.0-0.2); Basophils Percent Auto 0.7 % (0-2); Eosinophils Absolute Auto 0.1 X10*3/uL (0.0-0.4); Eosinophils Percent Auto 1.4 % (0-4); Hematocrit 26.3 % (42.0-52.0); Hemoglobin 8.8 g/dl (14.0-18.0); Imm Gran Abs Auto 0.22 X10*3/uL (0.00-0.03); Imm Gran Pct Auto 2.2 % (0.0-0.4); Lymphocytes Absolute Auto 1.2 X10*3/uL (1.2-4.9); Lymphocytes Percent Auto 11.9 % (20-40); Mean Corpuscular HGB Conc 33.5 g/dl (31.0-36.0); Mean Corpuscular Hemoglobin 28.9 pg (27.0-33.0); Mean Corpuscular Volume 86.5 fL (80.0-98.0); Mean Platelet Volume 10.8 fL (9.4-12.4); Monocytes Percent Auto 10.1 % (2-11); Neutrophils Absolute Auto 7.5 x10*3/uL (2.0-8.3); Neutrophils Percent Auto 73.7 % (45-73); Platelet Count 202 X10*3/uL (160-400); Red Blood Count 3.04 X10*6/uL (4.60-5.80); Red Cell Distribution Width 23.2 % (11.0-16.0); White Blood Count 10.1 X10*3/uL (4.8-10.8)
[2023-03-21 12:48] LABS: Ammonia 127 umol/L (13-55)
[2023-03-21 13:02] LABS: Alanine Aminotransferase 42 U/L (0-40); Albumin Level 3.2 g/dL (3.5-5.0); Alkaline Phosphatase 261 U/L (39-117); Anion Gap 16 (12-20); Aspartate Amino Transferase 284 U/L (5-37); Bilirubin Direct 8.8 mg/dL (0.0-0.5); Bilirubin Total 11.3 mg/dL (0.0-1.0); Blood Urea Nitrogen 10 mg/dL (9-16); Calcium 10.3 mg/dL (8.4-10.2); Carbon Dioxide 24 mmol/L (22-29); Chloride 95 mmol/L (96-108); Creatinine Clr Calc Pharmacy 197.8; Estimated Glomerular Filt Rate > 60; Ethanol 272 mg/dL; Glucose Random 127 mg/dL (60-115); Potassium 4.8 mmol/L (3.3-5.1); Sodium 130 mmol/L (135-145); Total Protein 7.2 g/dL (6.5-8.0)
--- NOTE | 2023-03-21 13:08 | ED_ITS ---
HPI - General Adult General Chief complaint: Altered Mental Status Stated complaint: CONF,SLUGGISH,JAUNDICE S/P BACK SURGERY Time Seen by Provider: 03/21/23 12:50 Source: patient, EMS, RN notes reviewed and other (girlfriend) Mode of arrival: EMS Limitations: no limitations History of Present Illness HPI narrative: Patient is a 37-year-old male with history of fatty liver, elevated LFTs, chronic lower back pain, fibromyalgia and interstitial cystitis presenting to the emergency department with complaint of abdominal distention and altered mental status per his girlfriend. Patient recently had surgical repair of lumbar disc herniation on 03/11/23. He was discharged home on oxycodone 5 mg every 4 hours. He states that he has been taking the medication as prescribed but has ongoing low back pain radiating down left leg. He reports the pain is the same as prior to surgery. Also complains of constipation. Denies any nausea, vomiting, diarrhea. Denies fevers. He admits to daily alcohol use, stating that he drinks approximately 8-9 drinks daily. Denies fall or other trauma. MD complaint: altered mental status Onset (ago): hour(s) Associated symptoms: other (Constipation, abdominal distension) Treatments prior to arrival: none Related Data Home Medications Medication Instructions Recorded Confirmed propranolol 10 mg tablet 10 mg PO BID PRN Anxiety 10/17/22 03/11/23 quetiapine 25 mg tablet 25 - 50 mg PO BEDTIME 10/17/22 03/11/23 Previous Rx's Medication Instructions Recorded albuterol sulfate 90 mcg/actuation 1 puff PO QID 30 days #8.5 grams 12/11/21 aerosol inhaler betamethasone dipropionate 0.05 % 1 appl topical DAILY 30 days #45 02/22/22 topical cream grams clonazepam 0.5 mg tablet (Klonopin) 0.5 mg PO DAILY PRN panic 02/04/23 attack(s) 30 days #15 tabs docusate sodium 100 mg capsule 100 mg PO BID #20 caps 03/11/23 (Colace) oxycodone 5 mg tablet 5 mg PO Q8H PRN pain #30 tabs 03/18/23 Allergies Allergy/AdvReac Type Severity Reaction Status Date / Time No Known Allergies Allergy Mild NONE Verified 03/21/23 11:26 Review of Systems 2 Review of Systems: As per HPI. Yes all other systems are reviewed and are negative Neurologic: Reports Abnormal speech present [facility] Past Medical History Medical History Obese Annual physical exam Elevated LFTs Screening for hypothyroidism Screening for hypercholesterolemia Screening for diabetes mellitus (DM) History of epididymitis Erectile dysfunction Orchalgia Frequency of urination Anxiety Erectile dysfunction Chronic lower back pain Fibromyalgia Surgical History History of shoulder surgery Family History Family History Father Osteoarthritis HTN (hypertension) Heart attack, Onset Age: 67 Mother No problems noted. 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 Blood pressure normal. Heart rate normal. Respiratory rate normal. Temperature normal. Oxygen saturation normal. Const General: cooperative, no acute distress, alert and awake Orientation/consciousness: patient oriented x3 HENMT Head: Yes normocephalic and Yes atraumatic Ears: hearing grossly normal bilaterally General nose exam: Normal nasal mucous membranes and turbinates present and Normal septum present Mouth: Normal oral and palatal mucosa present Throat: Yes posterior oropharynx normal, Yes uvula midline and No uvular edema Eyes Sclerae: scleral abnormal bilateral other (icterus) Pupils: Equal, round and reactive pupils present Neck Neck: Yes normal visual inspection, Yes full ROM and Yes supple Resp Effort & Inspection: normal respiratory effort Auscultation: clear to auscultation bilaterally Cardio Rate: regular rate Rhythm: regular rhythm Heart sounds: S1 normal heart sound present and S2 normal heart sound present GI Inspection: Yes distended Palpation (GI): Firmness to palpation present (GI) other (diffuse) and nontender General: Yes no CVA tenderness Back/Spine/Pelvis Back: no CVA tenderness Thoracic/Lumbar Spine: Thoracic/lumbar spine scar(s) (recent surgical incision, lumbar, no erythema/swelling/drainage) Skin General skin exam: elasticity normal, turgor normal and jaundice Neuro General: patient oriented x3 Cranial nerves: Yes Equal, round and reactive pupils present Cognition (Neuro): abnormal cognition (delay in answering questions) Speech: Abnormal speech present slurred Extrem General: Yes normal to inspection, Yes full ROM and Yes capillary refill normal Medications Administered Discontinued Medications Generic Name Dose Route Start Last Admin Trade Name Oliverq PRN Reason Stop Dose Admin Lactulose 20 gm 03/21/23 13:29 03/21/23 13:50 Lactulose 20 Gm/30 Ml Solution PO 03/21/23 13:30 20 gm ONCE ONE Administration Oxycodone HCl 5 mg 03/21/23 15:11 03/21/23 16:15 Oxycodone Hcl Immed Release 5 Mg Tablet PO 03/21/23 15:12 5 mg ONCE ONE Administration Phenobarbital Sodium 248.3 mg 03/21/23 16:00 03/21/23 16:15 Phenobarbital Sodium 130 Mg/Ml Im Once IM 03/21/23 16:01 248.3 mg ONCE ONE Administration Medical Decision Making Medical Decision Making [facility] Narrative: Patient is a 37-year-old male with history of fatty liver, elevated LFTs, chronic lower back pain, fibromyalgia and interstitial cystitis presenting to the emergency department with complaint of abdominal distention and altered mental status per his girlfriend. On exam patient is awake, A+Ox3, speech slurred and delay in answering questions, VS WNL, afebrile, physical exam findings as above. Given reported symptoms and physical exam findings, initial differential includes hepatic encephalopathy, alcohol intoxication, hypoglycemia or other electrolyte abnormality. Less likely SBP as patient afebrile, not tachycardic. Labs notable for anemia likely related to recent surgery, no leukocytosis, hyponatremia, elevated bilirubin, elevated LFTs and alk-phos, ammonia 127, ETOH 272. Lactulose ordered, will obtain U/S to rule out portal vein thrombosis. Will admit for hepatic encephalopathy. U/S pending. JOESPH Zhou accepted admission. Differential Diagnosis Differential Diagnoses: The differential diagnosis associated with the presentation includes As per MDM. Admission/Observation Consideration of admission/observation: Escalation of care including admission/observation considered Consult Healthcare Provider Management of the patient was discussed with: Hospitalist Lab Data [facility] Lab Attestation statement: I reviewed the patient's lab results. As per MDM. 03/21/23 12:34 03/21/23 12:34 Labs: Lab Results 03/21/23 Range/Units 12:34 WBC 10.1 (4.8-10.8) X10*3/uL RBC 3.04 L D (4.60-5.80) X10*6/uL Hgb 8.8 L D (14.0-18.0) g/dl Hct 26.3 L D (42.0-52.0) % MCV 86.5 (80.0-98.0) fL MCH 28.9 (27.0-33.0) pg MCHC 33.5 (31.0-36.0) g/dl RDW 23.2 H (11.0-16.0) % Plt Count 202 (160-400) X10*3/uL MPV 10.8 (9.4-12.4) fL Immature Gran % (Auto) 2.2 H (0.0-0.4) % Neut % (Auto) 73.7 H (45-73) % Lymph % (Auto) 11.9 L (20-40) % [place] % (Auto) 10.1 (2-11) % Eos % (Auto) 1.4 (0-4) % Baso % (Auto) 0.7 (0-2) % Lymph # (Auto) 1.2 (1.2-4.9) X10*3/uL [place] # (Auto) 1.0 (0.1-1.2) X10*3/uL Eos # (Auto) 0.1 (0.0-0.4) X10*3/uL Baso # (Auto) 0.1 (0.0-0.2) X10*3/uL Abs Immat Gran (auto) 0.22 H (0.00-0.03) X10*3/uL Absolute Neuts (auto) 7.5 (2.0-8.3) x10*3/uL Absolute Nucleated RBC 0.000 (0.0-0.012) X10*3/uL Nucleated RBC % (auto) 0.0 (0.0-0.2) /100WBC Sodium 130 L (135-145) mmol/L Potassium 4.8 D (3.3-5.1) mmol/L Chloride 95 L (96-108) mmol/L Carbon Dioxide 24 (22-29) mmol/L Anion Gap 16 (12-20) BUN 10 (9-16) mg/dL Creatinine 0.67 (0.5-1.4) mg/dL Estim Creat Clear Calc 197.8 Estimated GFR > 60 Random Glucose 127 H (60-115) mg/dL Calcium 10.3 H (8.4-10.2) mg/dL Total Bilirubin 11.3 H (0.0-1.0) mg/dL Direct Bilirubin 8.8 H (0.0-0.5) mg/dL AST 284 H (5-37) U/L ALT 42 H (0-40) U/L Alkaline Phosphatase 261 H (39-117) U/L Ammonia 127 H (13-55) umol/L Total Protein 7.2 (6.5-8.0) g/dL Albumin 3.2 L (3.5-5.0) g/dL Ethyl Alcohol 272 mg/dL Independent Historian Clinical information obtained from an independent historian. History obtained from or confirmed by: Other (Girlfriend) External Record Review External record reviewed: Inpatient record, Office record and Outpatient record Prescription Management I considered prescription management with: Pain Medication Chronic Conditions Patient?s care impacted by: Other Discharge Plan Discharge Patient Disposition: Admitted As Inpatient Prescriptions: No Action albuterol sulfate 90 mcg/actuation HFA aerosol inhaler 1 puff PO QID 30 Days Qty: 8.5 3RF clonazepam [Klonopin] 0.5 mg tablet 0.5 mg PO DAILY PRN (Reason: panic attack(s)) 30 Days Qty: 15 1RF oxycodone 5 mg tablet 5 mg PO Q8H PRN (Reason: pain) Qty: 30 0RF Rx Instructions: Partial Fill upon patient request. docusate sodium [Colace] 100 mg capsule 100 mg PO BID Qty: 20 0RF propranolol 10 mg tablet 10 mg PO BID PRN (Reason: Anxiety) quetiapine 25 mg tablet 25 - 50 mg PO BEDTIME betamethasone dipropionate 0.05 % cream 1 appl topical DAILY 30 Days Qty: 45 1RF
[2023-03-21] MEDS: Lactulose 20 GM/30 ML SOLUTION PO ×3 (13:50→21:00)
--- NOTE | 2023-03-21 13:53 | PC.NURSE ---
CIWA = 9. medication administered per provider order. pt visibly tremulous at this time. pt still displays w/ slurred speech/seems lethargic. pt verbalizing he is feeling extremely anxious - has 10/10 back pain and is struggling to find a comfortable position. will notify provider. partner bedside. call sagastume placed within reach.
[2023-03-21] MEDS: PHENobarbitaL sodium 130 MG/ML IM ONCE 248.3 MG IM (16:15)
[2023-03-21] MEDS: oxyCODONE HCl Immed Release 5 MG TABLET PO ×2 (16:15→22:45)
--- NOTE | 2023-03-21 16:22 | PC.NURSE ---
vss and up to date at this time. nsr on the hall monitor. pt c/o 9/10 back pain at this time. medication administered per provider order. respirations remain even and unlabored. partner bedside. call sagastume placed within reach.
--- NOTE | 2023-03-21 16:33 | P.HPHOSP_ITS ---
History of Present Illness Date of Service: 03/21/23 Chief Complaint: Altered mentation A 37 years old male with PMH of alcohol abuse, HLD, MDD, GERD, Bipolar among others who presents to the hospital with altered mentation. He had a recent surgical intrvention for herniated disc. has been drinking and was found to have elevated Alcohol levels in his blood. In ED, Ammonia level was significantly elevated Admitted for further eval and treatment. Review of Systems 2 Review of Systems: No fever, chills but has weakness Jaundice No chest pain, palpitation No shortness of breath or coughing having mild abdominal pain, with constipation No urinary symptoms No any rash or wounds PMFSH Medical History Obese Annual physical exam Elevated LFTs Screening for hypothyroidism Screening for hypercholesterolemia Screening for diabetes mellitus (DM) History of epididymitis Erectile dysfunction Orchalgia Frequency of urination Anxiety Erectile dysfunction Chronic lower back pain Fibromyalgia Family History Father Osteoarthritis HTN (hypertension) Heart attack, Onset Age: 67 Mother No problems noted. Brother IBS (irritable bowel syndrome) Other Mental health disorder Surgical History History of shoulder surgery Social History Household Members: Significant Other Household Members Other:: girlfriend, Veda Housing: House Do you presently have visiting nurse or other home services: No Alcohol intake: current Alcohol intake frequency: 3 or more drinks per day Alcohol type: hard liquor Patient Tobacco Use Status: Former Tobacco user Tobacco use type: Cigar Smoked in Last 30 Days: No e-Cigarette/Vaping Use: Former Use Patient Interested in Nicotine Replacement: No Second Hand Smoke Exposure: No Use of substances other than those prescribed or required for medical reasons: Yes Substance Use Type: Marijuana Substance Use Frequency: Occasionally Last Used Substance: Weeks (ago) Currently Displaying Signs/Symptoms of Drug Intoxication Withdrawal: No Any prior treatment program specific to substance use: No Have you been hit, kicked, punched, or otherwise hurt by someone within the past year? 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 Cognitive needs: No Hearing needs: No Vision needs: No Meds Allergies Allergy/AdvReac Type Severity Reaction Status Date / Time No Known Allergies Allergy Mild NONE Verified 03/21/23 11:26 Active Medications: Current Medications Pharmacy Consult (Consult Rx Etoh Phenob Im/Po) 1 each MISCELLANE ONCE PRN; Protocol PRN Reason: Consult order Phenobarbital (Phenobarbital 30 Mg Tablet) 60 mg PO BID MEÑO; Protocol Stop: 03/23/23 21:01 Phenobarbital (Phenobarbital 30 Mg Tablet) 30 mg PO BID MEÑO; Protocol Stop: 03/25/23 21:01 Phenobarbital (Phenobarbital 30 Mg Tablet) 30 mg PO DAILY MEÑO; Protocol Stop: 03/27/23 09:01 Phenobarbital Sodium (Phenobarbital Sodium 130 Mg/Ml Vial Im Q3hx2) 185.9 mg IM Q3H MEÑO; Protocol Stop: 03/21/23 22:01 Home Medications Medication Instructions Recorded Confirmed Last Taken Type propranolol 10 mg tablet 10 mg PO BID PRN Anxiety 10/17/22 03/21/23 Unknown History albuterol sulfate 90 mcg/actuation 1 puff PO QID PRN Shortness Of 03/21/23 03/21/23 Unknown History aerosol inhaler Breath Or Wheezing betamethasone dipropionate 0.05 % 1 appl topical DAILY PRN Rash 03/21/23 03/21/23 Unknown History topical cream sennosides 8.6 mg tablet (senna) 8.6 mg PO BEDTIME PRN constipation 03/21/23 03/21/23 Unknown History Physical Exam 2 Vital Signs and Narrative: Vital Signs: Last Vital Signs Temp 97.6 F 03/21/23 16:00 Pulse 89 03/21/23 16:00 Resp 16 03/21/23 16:00 BP 118/76 03/21/23 16:00 Pulse Ox 94 03/21/23 16:00 O2 Del Method Room Air 03/21/23 16:00 BMI result Body Mass Index 35.1 Const: Other: Constitutional : Awake, weak and confused, not in distress Eye: Jaundice Neck : Normal inspection, Supple Cardiovascular : RRR, no JVP, no lower extremity edema Respiratory : good bilateral air entry, no crackles, wheezes or rhonchi Gastrointestinal: soft, lax, decreased bowel sounds, Non tender, distended Skin : Warm, Dry Neurological : Alert & oriented to self and place , No focal deficit Results Labs 03/22/23 07:02 03/22/23 07:02 Labs: Laboratory Results - last 24 hr 03/21/23 12:34 MCV 86.5 MCH 28.9 MCHC 33.5 RDW 23.2 H Plt Count 202 MPV 10.8 Immature Gran % (Auto) 2.2 H Neut % (Auto) 73.7 H Lymph % (Auto) 11.9 L [place] % (Auto) 10.1 Eos % (Auto) 1.4 Baso % (Auto) 0.7 Lymph # (Auto) 1.2 [place] # (Auto) 1.0 Eos # (Auto) 0.1 Baso # (Auto) 0.1 Abs Immat Gran (auto) 0.22 H Absolute Neuts (auto) 7.5 Absolute Nucleated RBC 0.000 Nucleated RBC % (auto) 0.0 Anion Gap 16 Estim Creat Clear Calc 197.8 Estimated GFR > 60 Random Glucose 127 H Calcium 10.3 H Total Bilirubin 11.3 H Direct Bilirubin 8.8 H AST 284 H ALT 42 H Alkaline Phosphatase 261 H Ammonia 127 H Total Protein 7.2 Albumin 3.2 L Ethyl Alcohol 272 Assessment and Plan (1) Encephalopathy, hepatic: Status: Acute (2) Constipation: Status: Acute (3) Anemia: Status: Acute (4) Alcohol withdrawal: Status: Acute (5) Alcoholic liver disease: Status: Acute Plan A 37 years old male with PMH of alcohol abuse, HLD, MDD, GERD, Bipolar among others who presents to the hospital with altered mentation. Hepatic encephalopathy likely from alcohol liver disease elevated ammonia give lactulose GI consult Anemia check iron stores Significantly low at 8 occult stool Alcoholic liver disease Elevated Bili check INR, PT consider steroid therapy Alcohol abuse and possible withdrawal Started on PHenobarb in ED IVF advised to quit Gallbladder wall thickening get Surgery eval DVT PPx SCDs while evaluationg anemia The patient will need 2 overnight hospital stay for treatment of encephalopathy and liver disease. Quality Stroke Does the patient have a stroke diagnosis?: No VTE Prior VTE?: No VTE Risk Level:: Medical - moderate - high VTE Device Contraindication: N/A - Device Ordered VTE Drug Contraindication: Treatment Not Indicated
--- NOTE | 2023-03-21 16:37 | PHA.MEDREC ---
Pharmacy Consult ? Medication Reconciliation Pharmacy has completed the medication reconciliation. Patient confirmed medicaitons. Reports not taking quetiapine or venlafaxine. Breana Ding, PharmD
[2023-03-21 17:01] LABS: Iron 33 mcg/dL (45-160); Percent Iron Saturation 14 % (15-50); Total Iron Binding Capacity 238 mcg/dL (228-428); Unsaturated Iron Binding 205 ug/dL
[2023-03-21] MEDS: 0.9 % Sodium Chloride 1,000 ML 125 ML IVCONT ×2 (17:03→23:51)
--- NOTE | 2023-03-21 17:08 | PC.NURSE ---
updated CIWA = 13. medication administered per provider order. pt awaiting admitting bed at this time/aware of plan of care. partner bedside. call sagastume placed within reach.
[2023-03-21 18:12] LABS: INTERNATIONAL NORM RATIO 1.2 (0.9-1.1)
[2023-03-21 18:14] LABS: Partial Thromboplastin Time 36.9 SEC (26.0-36.4)
[2023-03-21] MEDS: clonazePAM 0.5 MG TABLET PO (18:49)
--- NOTE | 2023-03-21 18:50 | PC.NURSE ---
vss and up to date at this time. 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 pt verbalizing pain level rests around 6/10 at this time. pt states he has had an increase in anxity - PRN medication administered per provider order. will reassess shortly.
[2023-03-21] MEDS: PHENobarbitaL sodium 130 MG/ML VIAL IM Q3Hx2 185.9 MG IM ×2 (19:14→22:18)
[2023-03-21] MEDS: Morphine Sulfate 4 MG/ML CARTRIDGE 2 MG IVPUSH (19:19)
[2023-03-21] MEDS: Docusate Sodium 100 MG CAPSULE PO (21:00)
--- NOTE | 2023-03-21 21:03 | PC.NURSE ---
medication administered per provider order.
--- NOTE | 2023-03-21 22:51 | PC.NURSE ---
pt transfered to the floor at [id number]
[2023-03-22] VITALS (11 sets, daily range): BP systolic 97–182; BP diastolic 57–126; PULSE 87–107; RESP 20–38; TEMP 36.6–37.4; O2SAT 92–100; BMI 34.4
[2023-03-22] MEDS: Morphine Sulfate 4 MG/ML CARTRIDGE 2 MG IVPUSH ×5 (00:08→15:59)
[2023-03-22] MEDS: PHENobarbitaL sodium 65 MG/ML VIAL IM (02:17)
[2023-03-22] MEDS: Propranolol HCL 10 MG TABLET PO ×2 (05:09→09:40)
--- NOTE | 2023-03-22 06:18 | PM.EVENT ---
Event Note Date of Service: 03/22/23 Event Note: Nurse reported tachypnea. Patient with vital signs within normal limits. Will administer additional dose of phenobarb. Obtaining chest x-ray and ABG. Also ordered troponin and BNP Time Spent With Patient Time: Total time managing care of this patient today ____ minutes.
[2023-03-22 06:26] LABS: ABG Base Excess -0.6 mmol/L; ABG HCO3 22 mmol/L (22-26); ABG pCO2 31 mmHg (32-45); ABG pH 7.46 (7.35-7.45); ABG pO2 59 mmHg (83-108)
[2023-03-22] MEDS: PHENobarbitaL sodium 130 MG/ML VIAL IM ×3 (06:34→18:04)
[2023-03-22 06:39] LABS: ABG Refer to POC result
[2023-03-22 07:18] LABS: Hematocrit 27.8 % (42.0-52.0); Hemoglobin 9.4 g/dl (14.0-18.0); Mean Corpuscular HGB Conc 33.8 g/dl (31.0-36.0); Mean Corpuscular Hemoglobin 29.4 pg (27.0-33.0); Mean Corpuscular Volume 86.9 fL (80.0-98.0); NRBC Pct Auto 0.2 /100WBC (0.0-0.2); Platelet Count 222 X10*3/uL (160-400); Red Cell Distribution Width 24.3 % (11.0-16.0); White Blood Count 8.8 X10*3/uL (4.8-10.8)
--- NOTE | 2023-03-22 07:28 | PM.GICN ---
History of Present Illness Data of Consult Service Date: 03/22/23 Requesting physician: Jose Ortiz Primary Care Provider: Rudy Zelaya PA-C HPI Reason for consult: Acute alcoholic hepatitis 37 YM with history of fatty liver, elevated LFTs, chronic lower back pain, fibromyalgia and interstitial cystitis seen at [facility] on 03/21/23 with abdominal distention and altered mental status per his girlfriend. Patient recently had surgical repair of lumbar disc herniation on 03/11/23. He was discharged home on oxycodone 5 mg every 4 hours and reported taking the medication as prescribed and continued to have low back pain radiating down left leg. He reports the pain is the same as prior to surgery. Also complains of constipation. History obtained from the patient and his GF who was at the bedside. Pt's GF reports that she noted a slight jaundice a month ago which has become worse recently Pt complains of generalized abdominal pain and distensin and denies past or family hx of alcoholism or liver disease. Pt denied any nausea, vomiting, diarrhea or fevers and admits to a hx of chronic constipation. He reorts having diarrhea today (likely due to lactulose) He admitted to daily alcohol use - approximately 8-9 drinks of hard liqour daily. Pt reported he started drinking at age 16 yrs and has not been tin a treatment program in the past. His GF reports that amount of alcohol intake has increased over the past 2 years Pt denies smoking and admits to using Marijuana intermittently (not daily) Denies fall or other trauma. 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 1. Hepatosplenomegaly. 2. Findings suspicious for liver cirrhosis with heterogeneous parenchyma and nodular contour. 3. Portal hypertension manifested as hepatofugal main portal venous flow, splenomegaly and trace ascites. 4. Hydropic gallbladder with layering sludge. Gallbladder wall thickening is nonspecific in the setting of portal hypertension and ascites. Recommend clinical correlation for acute cholecystitis. Review of Systems Review of Systems: As per HPI. Yes all other systems are reviewed and are negative Neurologic: Reports Abnormal speech present (slurred speech) PMFSH Past Medical History Medical History (Updated 04/18/23 @ 11:39 by Taj Hernandes MD) Obese Annual physical exam Elevated LFTs Screening for hypothyroidism Screening for hypercholesterolemia Screening for diabetes mellitus (DM) History of epididymitis Erectile dysfunction Orchalgia Frequency of urination Anxiety Erectile dysfunction Chronic lower back pain Fibromyalgia Family History Family History Father Osteoarthritis HTN (hypertension) Heart attack, Onset Age: 67 Mother No problems noted. Brother IBS (irritable bowel syndrome) Other Mental health disorder Surgical History Surgical History (Updated 04/10/23 @ 08:03 by Maricel Biswas MD) History of lumbar discectomy History of shoulder surgery Social History Social History Household Members: Significant Other Household Members Other:: girlfriend, Veda Housing: House Do you presently have visiting nurse or other home services: No Alcohol intake: current Alcohol intake frequency: 3 or more drinks per day Alcohol type: hard liquor Comment: unresponsive/intubated--extremeties flaccid Patient Tobacco Use Status: Former Tobacco user Tobacco use type: Cigar e-Cigarette/Vaping Use: Former Use Second Hand Smoke Exposure: No Substance Use Type: Marijuana service: No Current occupational status: employed 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 Cognitive needs: No Hearing needs: No Vision needs: No Meds Allergies Allergy/AdvReac Type Severity Reaction Status Date / Time No Known Allergies Allergy Mild NONE Verified 03/21/23 11:26 Active Medications: Current Medications Albuterol Sulfate (Albuterol Sulfate 90 Mcg 8 Gm Inhaler) 1 puff INHALE QID PRN PRN Reason: Shortness Of Breath Or Wheezing Clonazepam (Clonazepam 0.5 Mg Tablet) 0.5 mg PO DAILY PRN PRN Reason: panic attack(s) Last Admin: 03/21/23 18:49 Dose: 0.5 mg Docusate Sodium (Docusate Sodium 100 Mg Capsule) 100 mg PO BID [facility] Last Admin: 03/21/23 21:00 Dose: 100 mg Sodium Chloride (Ns) 1,000 mls @ 125 mls/hr IVCONT .Q8H MEÑO Last Admin: 03/21/23 23:51 Dose: 125 mls/hr Lactulose (Lactulose 20 Gm/30 Ml Solution) 20 gm PO QID [facility] Last Admin: 03/21/23 21:00 Dose: 20 gm Morphine Sulfate (Morphine Sulfate 4 Mg/Ml Cartridge) 2 mg IVPUSH Q4H PRN; Protocol PRN Reason: Pain, Severe (Pain Scale 7-10) Last Admin: 03/22/23 06:24 Dose: 2 mg Ondansetron HCl (Ondansetron Hcl 4 Mg/2 Ml Vial) 4 mg IVPUSH Q8H PRN PRN Reason: Nausea and Vomiting Oxycodone HCl (Oxycodone Hcl Immed Release 5 Mg Tablet) 5 mg PO Q8H PRN PRN Reason: Pain, Moderate(Pain Scale 4-6) Last Admin: 03/21/23 22:45 Dose: 5 mg Pharmacy Consult (Consult Rx Etoh Phenob Im/Po) 1 each MISCELLANE ONCE PRN; Protocol PRN Reason: Consult order Phenobarbital (Phenobarbital 30 Mg Tablet) 60 mg PO BID [facility]; Protocol Stop: 03/23/23 21:01 Phenobarbital (Phenobarbital 30 Mg Tablet) 30 mg PO BID [facility]; Protocol Stop: 03/25/23 21:01 Phenobarbital (Phenobarbital 30 Mg Tablet) 30 mg PO DAILY [facility]; Protocol Stop: 03/27/23 09:01 Prednisolone Sodium Phosphate (Prednisolone Sodium Phosphate 15 Mg/5 Ml Solution) 40 mg PO DAILY [facility] Propranolol HCl (Propranolol Hcl 10 Mg Tablet) 10 mg PO BID PRN; Protocol PRN Reason: Anxiety Last Admin: 03/22/23 05:09 Dose: 10 mg Senna (Sennosides 8.6 Mg Tablet) 8.6 mg PO BEDTIME PRN PRN Reason: constipation Sodium Chloride (0.9 % Sodium Chloride Flush 3 Ml Syringe) [facility] Last Admin: 03/22/23 03:55 Dose: Not Given Triamcinolone Acetonide (Triamcinolone Acet 0.5 % Cream 15 Gm Tube) 1 appl TOPICAL DAILY PRN PRN Reason: Rash Home Medications ?Medication ?Instructions ?Recorded ?Confirmed ?Last Taken ?Type propranolol 10 mg tablet 10 mg PO BID PRN Anxiety 10/17/22 03/21/23 Unknown History albuterol sulfate 90 mcg/actuation 1 puff PO QID PRN Shortness Of 03/21/23 03/21/23 Unknown History aerosol inhaler Breath Or Wheezing betamethasone dipropionate 0.05 % 1 appl topical DAILY PRN Rash 03/21/23 03/21/23 Unknown History topical cream sennosides 8.6 mg tablet (senna) 8.6 mg PO BEDTIME PRN constipation 03/21/23 03/21/23 Unknown History Physical Exam Vital Signs: Vital Signs: Last Vital Signs Temp 98.6 F 03/22/23 07:15 Pulse 91 03/22/23 07:15 Resp 20 03/22/23 07:15 BP 162/93 H 03/22/23 07:15 Pulse Ox 98 03/22/23 07:15 O2 Del Method Room Air 03/22/23 07:15 BMI result Body Mass Index 34.4 Const: General: no acute distress, ill appearing, lethargic and other (tremulous) Orientation/consciousness: patient oriented x3 and lethargic Limitations: physical limitations HEENT: Head: Yes normal to inspection Ears: hearing grossly normal bilaterally Mouth: Normal oral and palatal mucosa present Eyes: Sclerae: scleral abnormal (Jaundiced) Pupils: Equal, round and reactive pupils present Neck: Neck: Yes normal visual inspection Chest: Chest palpation & inspection: normal inspection of the chest Resp: Effort & Inspection: normal respiratory effort Auscultation: clear to auscultation bilaterally Cardio: Palpation: normal PMI Rate: regular rate and tachycardic Rhythm: regular rhythm Heart sounds: S1 normal heart sound present, S2 normal heart sound present and no murmurs GI: Inspection: Yes distended and Yes obesity Palpation (GI): Soft to palpation, nontender and Hepatomegaly present (Liver palpable 6-7 cms below RCM and firm to palpation) Auscultation: normal bowel sounds Rectal Exam - Male: Yes deferred Skin: General skin exam: no rashes or lesions noted Neuro: General: patient oriented x3 and moves all extremities Cranial nerves: Yes Equal, round and reactive pupils present Speech: Abnormal speech present (slurred speech) and Other speech findings present (Neuro) (answers appropriately to questions) Psych: Speech and movement: Slurred speech present and Restless speech present Results Labs 04/18/23 15:41 04/18/23 15:41 Labs: Short CBC 03/21/23 03/22/23 Range/Units 12:34 07:02 WBC 10.1 8.8 (4.8-10.8) X10*3/uL Hgb 8.8 L D 9.4 L (14.0-18.0) g/dl Hct 26.3 L D 27.8 L (42.0-52.0) % Plt Count 202 222 (160-400) X10*3/uL BMP 03/21/23 12:34 Sodium 130 L Potassium 4.8 D Chloride 95 L Carbon Dioxide 24 BUN 10 Creatinine 0.67 Calcium 10.3 H Liver Function 03/21/23 Range/Units 12:34 Total Bilirubin 11.3 H (0.0-1.0) mg/dL Direct Bilirubin 8.8 H (0.0-0.5) mg/dL AST 284 H (5-37) U/L ALT 42 H (0-40) U/L Alkaline Phosphatase 261 H (39-117) U/L Albumin 3.2 L (3.5-5.0) g/dL Assessment and Plan (1) Alcoholic liver disease: Status: Acute (2) Alcohol withdrawal: Status: Acute (3) Encephalopathy, hepatic: Status: Acute Plan 37 YM with history of fatty liver, elevated LFTs, chronic lower back pain, fibromyalgia and interstitial cystitis seen at [facility] on 03/21/23 with abdominal distention and altered mental status per his girlfriend. Patient recently had surgical repair of lumbar disc herniation on 03/11/23. He was discharged home on oxycodone 5 mg every 4 hours and reported taking the medication as prescribed and continued to have low back pain RECOMMENDATIONS: 1. Agree with CIWA protocol for ETOH withdrawl 2. Monitor LFTs and prothrombin time daily. Maddrey score is 24 and pt does not meet the criteria for steroid treatment 3. Continue Lactulose for HE and titrate to 3 soft BMs daily Procedures Date of Service Date of Service: 11/09/23
[2023-03-22 07:41] LABS: B Type Natriuretic Peptide 185 pg/mL (<100)
[2023-03-22 07:42] LABS: Alanine Aminotransferase 47 U/L (0-40); Albumin Level 3.2 g/dL (3.5-5.0); Alkaline Phosphatase 269 U/L (39-117); Anion Gap 16 (12-20); Aspartate Amino Transferase 267 U/L (5-37); Bilirubin Total 12.1 mg/dL (0.0-1.0); Blood Urea Nitrogen 8 mg/dL (9-16); Calcium 9.9 mg/dL (8.4-10.2); Carbon Dioxide 22 mmol/L (22-29); Chloride 97 mmol/L (96-108); Creatinine Clr Calc Pharmacy 195.7; Estimated Glomerular Filt Rate > 60; Glucose Random 132 mg/dL (60-115); Potassium 3.7 mmol/L (3.3-5.1); Sodium 131 mmol/L (135-145); Total Protein 7.4 g/dL (6.5-8.0)
[2023-03-22 07:44] LABS: Troponin-I High Sensitivity 14.7 ng/L (<3.5-35.0)
[2023-03-22] MEDS: PHENobarbitaL 30 MG TABLET 60 MG PO (08:05)
[2023-03-22] MEDS: 0.9 % Sodium Chloride 1,000 ML 125 ML IVCONT (08:05)
[2023-03-22] MEDS: prednisoLONE sodium phosphate 15 MG/5 ML SOLUTION 40 MG PO (08:06)
[2023-03-22] MEDS: Docusate Sodium 100 MG CAPSULE PO (08:06)
[2023-03-22] MEDS: oxyCODONE HCl Immed Release 5 MG TABLET PO ×2 (08:06→15:59)
[2023-03-22] MEDS: 0.9 % Sodium Chloride Flush 3 ML SYRINGE IVFLUSH ×2 (08:07→16:00)
[2023-03-22] MEDS: Lactulose 20 GM/30 ML SOLUTION PO ×3 (08:07→16:00)
--- NOTE | 2023-03-22 08:26 | MHC.CM.PN ---
CM met with Patient at bedside. Patient lives in a house with his Girlfriend and he is functionally independent and working. Home/self care vs Recovery Team intervention (ETOH)is the tentative plan. CM has initiated and will follow for dc planning. PCP/PA is Rudy Zelaya.
--- NOTE | 2023-03-22 09:10 | PC.NURSE ---
Pt arrived to unit and oriented to staff and room. He was medicated as per mar but continued to be restless in the bed and unable to stay still. Camera in place, safety maintained. Pt frequently c/o pain and he was assisted to reposition, warm packs applied. Morphine, oxycodone and scheduled meds given with little effect. this am abdomen appears more distended with pt having a greater difficulty breathing. he is unable to maintain a good position for breathing because it makes his back pain worse. CIWA max of 17 medicated with phenobarbitol as ordered. Pt's RR jumped to 38 and BP to182/126. Dr. Antoine kept apprised and paged again with the new signs of resp distress and vitals changes. Dr. Antoine to bedside, additional morphine and phenobarb given with some + effect. xray and abg completed. Oncoming shift updated. plan of care progressing.
--- NOTE | 2023-03-22 10:08 | P.CONGS_ITS ---
History of Present Illness Consult details Consult date: 03/22/23 Reason for consult: abdominal pain Requesting physician: Tianna Julian Narrative: Patient is a 37-year-old male with history of fatty liver, chronic lower back pain 10 days s/p left L5-S1 lumbar microdiscectomy, fibromyalgia and interstitial cystitis presenting to the ED with complaints of altered mental status and abdominal distention per his girlfriend. He reports to taking oxycodone 5 mg every 4 hours for his incisional and ongoing low back pain radiating down left leg. He admits to daily alcohol use, stating that he drinks approximately 8-9 drinks daily. He was found to have several laboratory abnormalities including t/d bili 11.3/8.8, AST/ALT 284/42, alk phos 269 and ammonia 167. He was admitted to the hospitalist service for hepatic encephalopathy likely secondary to alcohol liver disease. General surgery was consulted for elevated LFTs and gallbladder wall thickening on ABD US and concern for acute cholecystitis. This morning, he reports diffuse abdominal pain that has been ongoing for 6 months and associated with increasing abdominal size. He denies nausea, vomiting, fevers, chills, diarrhea. He does endorse constipation and reports no BM since Saturday. Review of Systems 2 Constitutional: Constitutional: Denies chills, Denies fever(s) and Reports malaise Cardiovascular: Cardiovascular: Denies chest pain, Denies palpitations and Denies dyspnea Respiratory: Respiratory: Denies dyspnea Gastrointestinal: Gastrointestinal: Reports as per HPI, Denies hematochezia, Denies diarrhea and Denies hematemesis Genitourinary: Genitourinary: Denies hematuria Integumentary/Breasts: Skin/Breast: Denies rash and Reports jaundice Neurologic: Reports confusion Psychiatric: Psychiatric: Reports confusion Endocrine: Endocrine: Denies palpitations PMFSH Past Medical History Medical History Obese Annual physical exam Elevated LFTs Screening for hypothyroidism Screening for hypercholesterolemia Screening for diabetes mellitus (DM) History of epididymitis Erectile dysfunction Orchalgia Frequency of urination Anxiety Erectile dysfunction Chronic lower back pain Fibromyalgia Family History Family History Father Osteoarthritis HTN (hypertension) Heart attack, Onset Age: 67 Mother No problems noted. Brother IBS (irritable bowel syndrome) Other Mental health disorder Surgical History Surgical History History of shoulder surgery Social History Social History Household Members: Significant Other Household Members Other:: girlfriend, Veda Housing: House Do you presently have visiting nurse or other home services: No Alcohol intake: current Alcohol intake frequency: 3 or more drinks per day Alcohol type: hard liquor Patient Tobacco Use Status: Former Tobacco user Tobacco use type: Cigar Smoked in Last 30 Days: No e-Cigarette/Vaping Use: Former Use Patient Interested in Nicotine Replacement: No Second Hand Smoke Exposure: No Use of substances other than those prescribed or required for medical reasons: Yes Substance Use Type: Marijuana Substance Use Frequency: Occasionally Last Used Substance: Weeks (ago) Currently Displaying Signs/Symptoms of Drug Intoxication Withdrawal: No Any prior treatment program specific to substance use: No Have you been hit, kicked, punched, or otherwise hurt by someone within the past year? 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 Cognitive needs: No Hearing needs: No Vision needs: No Meds Allergies Allergy/AdvReac Type Severity Reaction Status Date / Time No Known Allergies Allergy Mild NONE Verified 03/21/23 11:26 Active Medications: Current Medications Albuterol Sulfate (Albuterol Sulfate 90 Mcg 8 Gm Inhaler) 1 puff INHALE QID PRN PRN Reason: Shortness Of Breath Or Wheezing Clonazepam (Clonazepam 0.5 Mg Tablet) 0.5 mg PO DAILY PRN PRN Reason: panic attack(s) Last Admin: 03/21/23 18:49 Dose: 0.5 mg Docusate Sodium (Docusate Sodium 100 Mg Capsule) 100 mg PO BID [facility] Last Admin: 03/22/23 08:06 Dose: 100 mg Sodium Chloride (Ns) 1,000 mls @ 125 mls/hr IVCONT .Q8H [facility] Last Admin: 03/22/23 08:05 Dose: 125 mls/hr Lactulose (Lactulose 20 Gm/30 Ml Solution) 20 gm PO QID [facility] Last Admin: 03/22/23 08:07 Dose: 20 gm Morphine Sulfate (Morphine Sulfate 4 Mg/Ml Cartridge) 2 mg IVPUSH Q4H PRN; Protocol PRN Reason: Pain, Severe (Pain Scale 7-10) Last Admin: 03/22/23 06:24 Dose: 2 mg Ondansetron HCl (Ondansetron Hcl 4 Mg/2 Ml Vial) 4 mg IVPUSH Q8H PRN PRN Reason: Nausea and Vomiting Oxycodone HCl (Oxycodone Hcl Immed Release 5 Mg Tablet) 5 mg PO Q8H PRN PRN Reason: Pain, Moderate(Pain Scale 4-6) Last Admin: 03/22/23 08:06 Dose: 5 mg Pharmacy Consult (Consult Rx Etoh Phenob Im/Po) 1 each MISCELLANE ONCE PRN; Protocol PRN Reason: Consult order Phenobarbital (Phenobarbital 30 Mg Tablet) 60 mg PO BID [facility]; Protocol Stop: 03/23/23 21:01 Last Admin: 03/22/23 08:05 Dose: 60 mg Phenobarbital (Phenobarbital 30 Mg Tablet) 30 mg PO BID [facility]; Protocol Stop: 03/25/23 21:01 Phenobarbital (Phenobarbital 30 Mg Tablet) 30 mg PO DAILY [facility]; Protocol Stop: 03/27/23 09:01 Phenobarbital Sodium (Phenobarbital Sodium 130 Mg/Ml Vial) 130 mg IM ONCE PRN PRN Reason: Alcohol Withdrawal Prednisolone Sodium Phosphate (Prednisolone Sodium Phosphate 15 Mg/5 Ml Solution) 40 mg PO DAILY [facility] Last Admin: 03/22/23 08:06 Dose: 40 mg Propranolol HCl (Propranolol Hcl 10 Mg Tablet) 10 mg PO BID PRN; Protocol PRN Reason: Anxiety Last Admin: 03/22/23 09:40 Dose: 10 mg Senna (Sennosides 8.6 Mg Tablet) 8.6 mg PO BEDTIME PRN PRN Reason: constipation Sodium Chloride (0.9 % Sodium Chloride Flush 3 Ml Syringe) 3 ml IVFLUSH QSHIFT [facility] Last Admin: 03/22/23 08:07 Dose: 3 ml Triamcinolone Acetonide (Triamcinolone Acet 0.5 % Cream 15 Gm Tube) 1 appl TOPICAL DAILY PRN PRN Reason: Rash Home Medications Medication Instructions Recorded Confirmed Last Taken Type propranolol 10 mg tablet 10 mg PO BID PRN Anxiety 10/17/22 03/21/23 Unknown History albuterol sulfate 90 mcg/actuation 1 puff PO QID PRN Shortness Of 03/21/23 03/21/23 Unknown History aerosol inhaler Breath Or Wheezing betamethasone dipropionate 0.05 % 1 appl topical DAILY PRN Rash 03/21/23 03/21/23 Unknown History topical cream sennosides 8.6 mg tablet (senna) 8.6 mg PO BEDTIME PRN constipation 03/21/23 03/21/23 Unknown History Physical Exam 2 Vital Signs: Vital Signs: Last Vital Signs Temp 98.6 F 03/22/23 07:15 Pulse 91 03/22/23 07:15 Resp 20 03/22/23 07:15 BP 162/93 H 03/22/23 07:15 Pulse Ox 98 03/22/23 07:15 O2 Del Method Room Air 03/22/23 07:15 BMI result Body Mass Index 34.4 Const: General: comfortable, no acute distress and confusion O rientation/consciousness: confusion HEENT: Head: Yes normocephalic Eyes: Sclerae: scleral abnormal (icteric) Resp: Effort & Inspection: normal respiratory effort GI: Other: protuberant abdomen Inspection: Yes distended Palpation (GI): Soft to palpation, Tenderness to palpation present (GI) (diffuse) Ji's sign negative and with no rebound tenderness, no guarding and not rigid Percussion: Yes dullness to percussion Skin: General skin exam: no rashes or lesions noted and jaundice Neuro: General: moves all extremities and confusion Results Labs 03/22/23 07:02 03/22/23 07:02 Labs: Abnormal lab results 03/21/23 03/21/23 03/22/23 Range/Units 12:34 17:57 06:20 RBC 3.04 L D (4.60-5.80) X10*6/uL Hgb 8.8 L D (14.0-18.0) g/dl Hct 26.3 L D (42.0-52.0) % RDW 23.2 H (11.0-16.0) % Immature Gran % (Auto) 2.2 H (0.0-0.4) % Neut % (Auto) 73.7 H (45-73) % Lymph % (Auto) 11.9 L (20-40) % Abs Immat Gran (auto) 0.22 H (0.00-0.03) X10*3/uL Absolute Nucleated RBC (0.0-0.012) X10*3/uL PT 15.0 H (11.1-13.3) SEC INR 1.2 H (0.9-1.1) APTT 36.9 H (26.0-36.4) SEC ABG pH at Pt Temp 7.46 H (7.35-7.45) ABG pCO2 at Pt Temp 31 L (32-45) mmHg ABG pO2 at Pt Temp 59 L (83-108) mmHg Sodium 130 L (135-145) mmol/L Chloride 95 L (96-108) mmol/L BUN (9-16) mg/dL Random Glucose 127 H (60-115) mg/dL Calcium 10.3 H (8.4-10.2) mg/dL Iron 33 L (45-160) mcg/dL % Saturation 14 L (15-50) % Total Bilirubin 11.3 H (0.0-1.0) mg/dL Direct Bilirubin 8.8 H (0.0-0.5) mg/dL AST 284 H (5-37) U/L ALT 42 H (0-40) U/L Alkaline Phosphatase 261 H (39-117) U/L Ammonia 127 H (13-55) umol/L B-Natriuretic Peptide (<100) pg/mL Albumin 3.2 L (3.5-5.0) g/dL 03/22/23 Range/Units 07:02 RBC 3.20 L (4.60-5.80) X10*6/uL Hgb 9.4 L (14.0-18.0) g/dl Hct 27.8 L (42.0-52.0) % RDW 24.3 H (11.0-16.0) % Immature Gran % (Auto) (0.0-0.4) % Neut % (Auto) (45-73) % Lymph % (Auto) (20-40) % Abs Immat Gran (auto) (0.00-0.03) X10*3/uL Absolute Nucleated RBC 0.020 H (0.0-0.012) X10*3/uL PT (11.1-13.3) SEC INR (0.9-1.1) APTT (26.0-36.4) SEC ABG pH at Pt Temp (7.35-7.45) ABG pCO2 at Pt Temp (32-45) mmHg ABG pO2 at Pt Temp (83-108) mmHg Sodium 131 L (135-145) mmol/L Chloride (96-108) mmol/L BUN 8 L (9-16) mg/dL Random Glucose 132 H (60-115) mg/dL Calcium (8.4-10.2) mg/dL Iron (45-160) mcg/dL % Saturation (15-50) % Total Bilirubin 12.1 H (0.0-1.0) mg/dL Direct Bilirubin (0.0-0.5) mg/dL AST 267 H (5-37) U/L ALT 47 H (0-40) U/L Alkaline Phosphatase 269 H (39-117) U/L Ammonia (13-55) umol/L B-Natriuretic Peptide 185 H (<100) pg/mL Albumin 3.2 L (3.5-5.0) g/dL Short CBC 03/21/23 03/22/23 Range/Units 12:34 07:02 WBC 10.1 8.8 (4.8-10.8) X10*3/uL Hgb 8.8 L D 9.4 L (14.0-18.0) g/dl Hct 26.3 L D 27.8 L (42.0-52.0) % Plt Count 202 222 (160-400) X10*3/uL BMP 03/21/23 03/22/23 12:34 07:02 Sodium 130 L 131 L Potassium 4.8 D 3.7 D Chloride 95 L 97 Carbon Dioxide 24 22 BUN 10 8 L Creatinine 0.67 0.67 Calcium 10.3 H 9.9 Liver Function 03/21/23 03/22/23 Range/Units 12:34 07:02 Total Bilirubin 11.3 H 12.1 H (0.0-1.0) mg/dL Direct Bilirubin 8.8 H (0.0-0.5) mg/dL AST 284 H 267 H (5-37) U/L ALT 42 H 47 H (0-40) U/L Alkaline Phosphatase 261 H 269 H (39-117) U/L Albumin 3.2 L 3.2 L (3.5-5.0) g/dL All other labs normal. Imaging Abdominal ultrasound report/results: report reviewed and image reviewed Assessment and Plan (1) Encephalopathy, hepatic: Status: Acute Plan 37 year old male who presented with altered mental status admitted with hepatic encephalopathy likely secondary to alcholic liver disease. ABD US performed which showed liver cirrhosis with heterogeneous parenchyma and nodular contour, portal hypertension with thickened gallbladder. His abdomen is protuberant and he has mild diffuse tenderness on exam without significant RUQ tenderness or positive ji sign. The gallbladder wall thickening and elevated LFTs is likely secondary to his liver parenchymal disease instead of acute cholecystitis. This was discussed with the patient and girlfriend. All questions answered. Recommend GI consult for liver disease. Procedures Date of Service Date of Service: 03/22/23
[2023-03-22] MEDS: Lactulose 320 GM/480 ML SOLUTION 200 GM PR (11:38)
[2023-03-22 12:39] LABS: OBS Int Ctl Valid YES; OBS1 NEGATIVE (NEGATIVE)
--- NOTE | 2023-03-22 14:31 | P.PNIM_ITS ---
Subjective Subjective Date of Service: 03/22/23 Interval History: Seen and evaluated this morning Feels distended with shallow breathing No reported vomiting still constipated Bilirubin around the same Review of Systems Review of Systems: Yes all other systems are reviewed and are negative Physical Exam 2 Vital Signs: Vital Signs: Last Vital Signs Temp 98.1 F 03/22/23 11:00 Pulse 87 03/22/23 11:00 Resp 20 03/22/23 11:00 BP 134/79 03/22/23 11:00 Pulse Ox 95 03/22/23 11:00 O2 Del Method Room Air 03/22/23 11:00 BMI result Body Mass Index 34.4 Const: Other: Constitutional : Awake, weak and confused, not in distress Eye: Jaundice Neck : Normal inspection, Supple Cardiovascular : RRR, no JVP, no lower extremity edema Respiratory : good bilateral air entry, no crackles, wheezes or rhonchi Gastrointestinal: soft, lax, significantly decreased bowel sounds, Non tender, distended Skin : Warm, Dry Neurological : Alert & oriented to self and place , No focal deficit Objective Data Active Medications Albuterol Sulfate (Albuterol Sulfate 90 Mcg 8 Gm Inhaler) 1 puff INHALE QID PRN PRN Reason: Shortness Of Breath Or Wheezing Clonazepam (Clonazepam 0.5 Mg Tablet) 0.5 mg PO DAILY PRN PRN Reason: panic attack(s) Last Admin: 03/21/23 18:49 Dose: 0.5 mg Documented By: REJI Docusate Sodium (Docusate Sodium 100 Mg Capsule) 100 mg PO BID [facility] Last Admin: 03/22/23 08:06 Dose: 100 mg Documented By: ROCKY Sodium Chloride (Ns) 1,000 mls @ 125 mls/hr IVCONT .Q8H [facility] Last Admin: 03/22/23 08:05 Dose: 125 mls/hr Documented By: ROCKY Lactulose (Lactulose 20 Gm/30 Ml Solution) 20 gm PO QID [facility] Last Admin: 03/22/23 12:18 Dose: 20 gm Documented By: ROCKY Morphine Sulfate (Morphine Sulfate 4 Mg/Ml Cartridge) 2 mg IVPUSH Q4H PRN; Protocol PRN Reason: Pain, Severe (Pain Scale 7-10) Last Admin: 03/22/23 10:52 Dose: 2 mg Documented By: ROCKY Ondansetron HCl (Ondansetron Hcl 4 Mg/2 Ml Vial) 4 mg IVPUSH Q8H PRN PRN Reason: Nausea and Vomiting Oxycodone HCl (Oxycodone Hcl Immed Release 5 Mg Tablet) 5 mg PO Q8H PRN PRN Reason: Pain, Moderate(Pain Scale 4-6) Last Admin: 03/22/23 08:06 Dose: 5 mg Documented By: ROCKY Pharmacy Consult (Consult Rx Etoh Phenob Im/Po) 1 each MISCELLANE ONCE PRN; Protocol PRN Reason: Consult order Phenobarbital (Phenobarbital 30 Mg Tablet) 60 mg PO BID [facility]; Protocol Stop: 03/23/23 21:01 Last Admin: 03/22/23 08:05 Dose: 60 mg Documented By: ROCKY Phenobarbital (Phenobarbital 30 Mg Tablet) 30 mg PO BID [facility]; Protocol Stop: 03/25/23 21:01 Phenobarbital (Phenobarbital 30 Mg Tablet) 30 mg PO DAILY [facility]; Protocol Stop: 03/27/23 09:01 Phenobarbital Sodium (Phenobarbital Sodium 130 Mg/Ml Vial) 130 mg IM ONCE PRN PRN Reason: Alcohol Withdrawal Last Admin: 03/22/23 12:18 Dose: 130 mg Documented By: ROCKY Phenobarbital Sodium (Phenobarbital Sodium 130 Mg/Ml Vial) 130 mg IM ONCE PRN PRN Reason: Alcohol Withdrawal Prednisolone Sodium Phosphate (Prednisolone Sodium Phosphate 15 Mg/5 Ml Solution) 40 mg PO DAILY [facility] Last Admin: 03/22/23 08:06 Dose: 40 mg Documented By: ROCKY Propranolol HCl (Propranolol Hcl 10 Mg Tablet) 10 mg PO BID PRN; Protocol PRN Reason: Anxiety Last Admin: 03/22/23 09:40 Dose: 10 mg Documented By: ROCKY Senna (Sennosides 8.6 Mg Tablet) 8.6 mg PO BEDTIME PRN PRN Reason: constipation Sodium Chloride (0.9 % Sodium Chloride Flush 3 Ml Syringe) 3 ml IVFLUSH [facility] Last Admin: 03/22/23 08:07 Dose: 3 ml Documented By: ROCKY Triamcinolone Acetonide (Triamcinolone Acet 0.5 % Cream 15 Gm Tube) 1 appl TOPICAL DAILY PRN PRN Reason: Rash Labs 03/22/23 07:02 03/22/23 07:02 Labs: Laboratory Results - last 24 hr 03/21/23 03/21/23 03/22/23 12:34 17:57 06:20 MCV MCH MCHC RDW Plt Count MPV Absolute Nucleated RBC Nucleated RBC % (auto) PT 15.0 H INR 1.2 H APTT 36.9 H O2 Saturation 84.0 ABG pH at Pt Temp 7.46 H ABG pCO2 at Pt Temp 31 L ABG pO2 at Pt Temp 59 L ABG HCO3 22 ABG Base Excess (Actual) -0.6 Anion Gap Estim Creat Clear Calc Estimated GFR Random Glucose Calcium Iron 33 L TIBC 238 % Saturation 14 L Unsat Iron Binding 205 Total Bilirubin AST ALT Alkaline Phosphatase B-Natriuretic Peptide Total Protein Albumin Stool Occult Blood 03/22/23 03/22/23 07:02 12:21 MCV 86.9 MCH 29.4 MCHC 33.8 RDW 24.3 H Plt Count 222 MPV 11.0 Absolute Nucleated RBC 0.020 H Nucleated RBC % (auto) 0.2 PT INR APTT O2 Saturation ABG pH at Pt Temp ABG pCO2 at Pt Temp ABG pO2 at Pt Temp ABG HCO3 ABG Base Excess (Actual) Anion Gap 16 Estim Creat Clear Calc 195.7 Estimated GFR > 60 Random Glucose 132 H Calcium 9.9 Iron TIBC % Saturation Unsat Iron Binding Total Bilirubin 12.1 H AST 267 H ALT 47 H Alkaline Phosphatase 269 H B-Natriuretic Peptide 185 H Total Protein 7.4 Albumin 3.2 L Stool Occult Blood NEGATIVE Assessment and Plan (1) Alcoholic liver disease: Status: Acute (2) Alcohol withdrawal: Status: Acute (3) Encephalopathy, hepatic: Status: Acute (4) Constipation: Status: Acute (5) Anemia: Status: Acute Plan A 37 years old male with PMH of alcohol abuse, HLD, MDD, GERD, Bipolar among others who presents to the hospital with altered mentation. Hepatic encephalopathy likely from alcohol liver disease elevated ammonia give lactulose enema today continue PO Lactulose, add Rifaximin if no BM pending GI consult Iron def. Anemia Low iron stores to start Iron therapy negative occult stool Alcoholic liver disease Elevated Bili INR, PT mildly elevated consider steroid therapy Alcohol abuse and possible withdrawal Continue PHenobarb protocol, add extra as needed DC IVF advised to quit Gallbladder wall thickening Per US images Surgery eval, no surgical indication for cholecystitis DVT PPx SCDs while evaluationg anemia The patient will need overnight hospital stay for treatment of encephalopathy and liver disease. Quality Stroke Does the patient have a stroke diagnosis?: No VTE Prior VTE?: No VTE Risk Level:: Medical - moderate - high VTE Device Contraindication: N/A - Device Ordered VTE Drug Contraindication: Treatment Not Indicated
[2023-03-22] MEDS: Thiamine HCL 100 MG TABLET PO (15:59)
[2023-03-22] MEDS: Ferrous Sulfate 324 MG TABLET.DR PO (15:59)
[2023-03-22] MEDS: Furosemide 20 MG/2 ML VIAL IVPUSH (17:08)
[2023-03-22] MEDS: Albuterol Sulfate 90 MCG 8 GM INHALER 1 PUFF INHALE (17:37)
--- NOTE | 2023-03-22 21:58 | P.EN_ITS ---
Event Note Date of Service: 03/22/23 Event Note: Rapid response was called overhead and within seconds code blue was called overhead. As per the nurse, previous vital signs were within normal limits. Patient was answering orientation questions just a minute prior to being unresponsive. Was admitted for hepatic encephalopathy. Asystole was noted on the monitor. He was resuscitated using ACLS protocol. ROSC achieved after 6 minutes of CPR. Patient received IV epinephrine, IV bicarb and IV calcium gluconate during resuscitation. Patient intubated by ER provider. Spoke to Tico, patient's primary contact and informed about the patient's condition. Spoke to drop hammer setter up and patient being transferred to ICU. Time Spent With Patient Time: Total time managing care of this patient today ____ minutes.
[2023-03-22 22:09] LABS: Glucose, Whole Blood 100 mg/dL (60-115)
[2023-03-22] MEDS: propofoL 1,000 MG/100 ML VIAL 20.7 MG IVCONT (22:25)
[2023-03-22] MEDS: Norepinephrine Bitartrate/D5W 8 MG/250 ML PLAST..BAG 10.78 MG IV (22:28)
--- NOTE | 2023-03-22 22:28 | PC.NURSE ---
Carpet Yarn Winder Operator was called to patient's room due to patient desating to the low 70s, pt was repositioned, 02sat increased to 94%RA, pt drowsy, alert and oriented to self and place,vital signs within normal limits . Approximately 2 mins later pt went unresponsive, code blue called.
[2023-03-22] MEDS: Etomidate 20 MG/10 ML VIAL IVPUSH (22:30)
--- NOTE | 2023-03-22 22:42 | W.PM.CCCN ---
Documented by User: So Wild NP 03/23/23 00:48 History of Present Illness Data of Consult Service Date: 03/22/23 Requesting physician: Jerry Antoine Primary Care Provider: Rudy Zelaya PA-C HPI Reason for consult: cardiopulmonary arrest The patient is a 29-year-old male with a past medical history of alcohol abuse, ? alcoholic cirrhosis,? hyperlipidemia, GERD, major depressive disorder, bipolar disorder? and recent surgical intervention for herniated? disc? who presented? to the hospital on 03/21/2023? with altered mental status positive alcohol level.? Admitted to Hospital Medicine with hepatic encephalopathy.? ? Tonight,? the nurse noted patient O2 rapidly declining to 70s,? on her initial assessment patient was alert and oriented x3,? vital Signs shortly before this stable,? nurse activated? rapid response? team but quickly followed? by code blue due to patient becoming unresponsive with no pulse.? Patient was asystole on the monitor, he was resuscitated using ACLS protocol.? This was achieved after 6 minutes of CPR ( 3 amps of epinephrine, 2 amps of bicarb, and 1 calcium chloride).? He was intubated during code.? ?Post cardiac? arrest labs? significant for? lactic acid of 3.5,? AST 248, ALT 45, alk-phos 239,? ammonia 95, BNP 296 ? VBG:? 7.40/40/157/25 ? ?Chest x-ray-? with some degree of pulmonary congestion and possible aspiration. ? On arrival to the ICU, ? patient endotracheal tube required to be exchanged to a bigger size ET tube. ? OG tube was placed with about 1 Liter of bile fluid out immediately. Review of Systems Review of Systems: Yes unobtainable due to endotracheal tube PMFSH Past Medical History Medical History Obese Annual physical exam Elevated LFTs Screening for hypothyroidism Screening for hypercholesterolemia Screening for diabetes mellitus (DM) History of epididymitis Erectile dysfunction Orchalgia Frequency of urination Anxiety Erectile dysfunction Chronic lower back pain Fibromyalgia Family History Family History Father Osteoarthritis HTN (hypertension) Heart attack, Onset Age: 67 Mother No problems noted. Brother IBS (irritable bowel syndrome) Other Mental health disorder Surgical History Surgical History History of shoulder surgery Social History Social History Household Members: Significant Other Household Members Other:: girlfriend, Veda Housing: House Do you presently have visiting nurse or other home services: No Alcohol intake: current Alcohol intake frequency: 3 or more drinks per day Alcohol type: hard liquor Patient Tobacco Use Status: Former Tobacco user Tobacco use type: Cigar e-Cigarette/Vaping Use: Former Use Second Hand Smoke Exposure: No Substance Use Type: Marijuana service: No Current occupational status: employed 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 Cognitive needs: No Hearing needs: No Vision needs: No Meds Allergies Allergy/AdvReac Type Severity Reaction Status Date / Time No Known Allergies Allergy Mild NONE Verified 03/21/23 11:26 Active Medications: Current Medications Albuterol Sulfate (Albuterol Sulfate 90 Mcg 8 Gm Inhaler) 1 puff INHALE QID PRN PRN Reason: Shortness Of Breath Or Wheezing Last Admin: 03/22/23 17:37 Dose: 1 puff Clonazepam (Clonazepam 0.5 Mg Tablet) 0.5 mg PO DAILY PRN PRN Reason: panic attack(s) Last Admin: 03/21/23 18:49 Dose: 0.5 mg Docusate Sodium (Docusate Sodium 100 Mg Capsule) 100 mg PO BID [facility] Last Admin: 03/22/23 08:06 Dose: 100 mg Ferrous Sulfate (Ferrous Sulfate 324 Mg Tablet.Dr) 324 mg PO DAILY [facility] Last Admin: 03/22/23 15:59 Dose: 324 mg Lactulose (Lactulose 20 Gm/30 Ml Solution) 20 gm PO QID [facility] Last Admin: 03/22/23 16:00 Dose: 20 gm Morphine Sulfate (Morphine Sulfate 4 Mg/Ml Cartridge) 2 mg IVPUSH Q4H PRN; Protocol PRN Reason: Pain, Severe (Pain Scale 7-10) Last Admin: 03/22/23 15:59 Dose: 2 mg Ondansetron HCl (Ondansetron Hcl 4 Mg/2 Ml Vial) 4 mg IVPUSH Q8H PRN PRN Reason: Nausea and Vomiting Oxycodone HCl (Oxycodone Hcl Immed Release 5 Mg Tablet) 5 mg PO Q8H PRN PRN Reason: Pain, Moderate(Pain Scale 4-6) Last Admin: 03/22/23 15:59 Dose: 5 mg Pharmacy Consult (Consult Rx Etoh Phenob Im/Po) 1 each MISCELLANE ONCE PRN; Protocol PRN Reason: Consult order Phenobarbital (Phenobarbital 30 Mg Tablet) 60 mg PO BID [facility]; Protocol Last Admin: 03/22/23 08:05 Dose: 60 mg Phenobarbital (Phenobarbital 30 Mg Tablet) 30 mg PO BID [facility]; Protocol Phenobarbital (Phenobarbital 30 Mg Tablet) 30 mg PO DAILY [facility]; Protocol Phenobarbital Sodium (Phenobarbital Sodium 130 Mg/Ml Vial) 130 mg IM ONCE PRN PRN Reason: Alcohol Withdrawal Last Admin: 03/22/23 18:04 Dose: 130 mg Phenobarbital Sodium (Phenobarbital Sodium 130 Mg/Ml Vial) 130 mg IM ONCE PRN PRN Reason: Alcohol Withdrawal Prednisolone Sodium Phosphate (Prednisolone Sodium Phosphate 15 Mg/5 Ml Solution) 40 mg PO DAILY [facility] Last Admin: 03/22/23 08:06 Dose: 40 mg Propranolol HCl (Propranolol Hcl 10 Mg Tablet) 10 mg PO BID PRN; Protocol PRN Reason: Anxiety Last Admin: 03/22/23 09:40 Dose: 10 mg Senna (Sennosides 8.6 Mg Tablet) 8.6 mg PO BEDTIME PRN PRN Reason: constipation Sodium Chloride (0.9 % Sodium Chloride Flush 3 Ml Syringe) 3 ml IVFLUSH QSHIFT [facility] Last Admin: 03/22/23 16:00 Dose: 3 ml Thiamine HCl (Thiamine Hcl 100 Mg Tablet) 100 mg PO DAILY [facility] Last Admin: 03/22/23 15:59 Dose: 100 mg Triamcinolone Acetonide (Triamcinolone Acet 0.5 % Cream 15 Gm Tube) 1 appl TOPICAL DAILY PRN PRN Reason: Rash Home Medications Medication Instructions Recorded Confirmed Last Taken Type propranolol 10 mg tablet 10 mg PO BID PRN Anxiety 10/17/22 03/21/23 Unknown History albuterol sulfate 90 mcg/actuation 1 puff PO QID PRN Shortness Of 03/21/23 03/21/23 Unknown History aerosol inhaler Breath Or Wheezing betamethasone dipropionate 0.05 % 1 appl topical DAILY PRN Rash 03/21/23 03/21/23 Unknown History topical cream sennosides 8.6 mg tablet (senna) 8.6 mg PO BEDTIME PRN constipation 03/21/23 03/21/23 Unknown History Physical Exam Vital Signs: Vital Signs: Last Vital Signs Temp 99.3 F 03/22/23 19:22 Pulse 107 H 03/22/23 22:11 Resp 37 H 03/22/23 22:11 BP 138/96 H 03/22/23 22:11 Pulse Ox 98 03/22/23 22:11 O2 Del Method Mechanical Ventil ation 03/22/23 22:11 FiO2 100 03/22/23 22:11 BMI result Body Mass Index 34.4 ?General:? patient intubated ?HEENT:? Head is normocephalic, atraumatic, pupils equal round reactive to light accommodation bilaterally.? jaundiced sclera. buccal mucosa moist. Neck is supple ?Cardiac:? sinus rhythm on monitor. Clear S1-S2, no murmurs rubs or gallops. + 2 edema in bilateral lower extremity and upper extremities ?Pulmonary:? lungs diminished throughout. on vent AC setting 16/400/5/80% . ?Abdomen:? ?Abdomen firm, round and severe distended. + bowel sounds in all quadrants ?Musculoskeletal:? Moving all 4 extremities randomly. ?Neurologic:? No focal deficits noted. ?Skin: jaundiced throughout. ? No ulcers. Results Labs 03/23/23 04:47 03/23/23 04:47 Labs: Short CBC 03/22/23 Range/Units 07:02 WBC 8.8 (4.8-10.8) X10*3/uL Hgb 9.4 L (14.0-18.0) g/dl Hct 27.8 L (42.0-52.0) % Plt Count 222 (160-400) X10*3/uL BMP 03/22/23 07:02 Sodium 131 L Potassium 3.7 D Chloride 97 Carbon Dioxide 22 BUN 8 L Creatinine 0.67 Calcium 9.9 Liver Function 03/22/23 Range/Units 07:02 Total Bilirubin 12.1 H (0.0-1.0) mg/dL AST 267 H (5-37) U/L ALT 47 H (0-40) U/L Alkaline Phosphatase 269 H (39-117) U/L Albumin 3.2 L (3.5-5.0) g/dL Assessment and Plan (1) Cardiopulmonary arrest with successful resuscitation: Status: Acute (2) Aspiration into airway: Status: Acute (3) Liver cirrhosis: Status: Acute (4) Alcoholic liver disease: Status: Acute (5) Pulmonary edema: Status: Acute (6) Anemia: Status: Acute (7) Elevated lactic acid level: Status: Acute Plan Neuro:? ?Hepatic encephalopathy-? patient was confused since admission? due to underlying liver disease.? See GI plan Cardiac:?? ?Status post cardiapulm arrest:? likely from aspiration event.? On pressors due to sedation.? Wean off pressors as tolerated ?Elevated lactic acid-? lactic acid only elevated to 3.5 post cardiac arrest,? this is likely due to? CPR.? white count stable,? no evidence of severe infection at this time.? Hypotension is related to sedation ?Pulmonary? edema:? chest x-ray was some degree of pulmonary congestion,? BNP is elevated.? Will give Lasix.? Continue to monitor? diuresing.? Pulmonary:? ?Cardiopulmonary arrest-? according to nursing staff patient decided quickly to 70s in shortly after losses pulse.? Patient with significant amount of pulmonary? congestion and x-ray, abdomen was severely distended,? ? cardiopulmonary arrest? likely due to aspiration.? Patient does not seem to have severe infection at this time.? Will empirically treat with Zosyn Renal:?? ?No acute issues GI:?? ?Liver cirrhosis:? patient admitted with hepatic encephalopathy, transaminitis, jaundice.? Ultrasound from 03/21/2023? showing liver cirrhosis? and questionable acute cholecystitis. ? Patient abdomen severely distended, Tonight OG tube had over 1l output of bile fluid.? When patient is stable will obtain a CT scan of the abdomen? Endo:?? ?No acute issues Heme/Onc:? ?Anemia:? hemoglobin is stable ID:? ?Patient has no leukocytosis,? no evidence of severe infection, ? obtain blood cultures as per protocol.? Empirically treating with Zosyn? and vanco for possible aspiration event during cardiac arrest.? Psych:? No acute issues. Prophylaxis:? compression devide. GI:? IV Protonix Code? status: ? ? FULL CODE.? Critical care time: x 90 min of critical care time? Documented by User: Taj Hernandes MD 03/23/23 10:10 History of Present Illness HPI The patient is a 37-year-old male with a past medical history of alcohol abuse, ? alcoholic cirrhosis,? hyperlipidemia, GERD, major depressive disorder, bipolar disorder? and recent surgical intervention for herniated? disc? who presented? to the hospital on 03/21/2023? with altered mental status positive alcohol level.? Admitted to Hospital Medicine with hepatic encephalopathy.? ? Tonight,? the nurse noted patient O2 rapidly declining to 70s,? on her initial assessment patient was alert and oriented x3,? vital Signs shortly before this stable,? nurse activated? rapid response? team but quickly followed? by code blue due to patient becoming unresponsive with no pulse.? Patient was asystole on the monitor, he was resuscitated using ACLS protocol.? This was achieved after 6 minutes of CPR ( 3 amps of epinephrine, 2 amps of bicarb, and 1 calcium chloride).? He was intubated during code.? ?Post cardiac? arrest labs? significant for? lactic acid of 3.5,? AST 248, ALT 45, alk-phos 239,? ammonia 95, BNP 296 ? VBG:? 7.40/40/157/25 ? ?Chest x-ray-? with some degree of pulmonary congestion and possible aspiration. ? On arrival to the ICU, ? patient endotracheal tube required to be exchanged to a bigger size ET tube. ? OG tube was placed with about 1 Liter of bile fluid out immediately. [facility] Past Medical History Medical History Obese Annual physical exam Elevated LFTs Screening for hypothyroidism Screening for hypercholesterolemia Screening for diabetes mellitus (DM) History of epididymitis Erectile dysfunction Orchalgia Frequency of urination Anxiety Erectile dysfunction Chronic lower back pain Fibromyalgia Family History Family History Father Osteoarthritis HTN (hypertension) Heart attack, Onset Age: 67 Mother No problems noted. Brother IBS (irritable bowel syndrome) Other Mental health disorder Surgical History Surgical History History of shoulder surgery Social History Social History Household Members: Significant Other Household Members Other:: girlfriend, Veda Housing: House Do you presently have visiting nurse or other home services: No Alcohol intake: current Alcohol intake frequency: 3 or more drinks per day Alcohol type: hard liquor Patient Tobacco Use Status: Former Tobacco user Tobacco use type: Cigar e-Cigarette/Vaping Use: Former Use Second Hand Smoke Exposure: No Substance Use Type: Marijuana service: No Current occupational status: employed 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 Cognitive needs: No Hearing needs: No Vision needs: No Meds Allergies Allergy/AdvReac Type Severity Reaction Status Date / Time No Known Allergies Allergy Mild NONE Verified 03/21/23 11:26 Home Medications Medication Instructions Recorded Confirmed Last Taken Type propranolol 10 mg tablet 10 mg PO BID PRN Anxiety 10/17/22 03/21/23 Unknown History albuterol sulfate 90 mcg/actuation 1 puff PO QID PRN Shortness Of 03/21/23 03/21/23 Unknown History aerosol inhaler Breath Or Wheezing betamethasone dipropionate 0.05 % 1 appl topical DAILY PRN Rash 03/21/23 03/21/23 Unknown History topical cream sennosides 8.6 mg tablet (senna) 8.6 mg PO BEDTIME PRN constipation 03/21/23 03/21/23 Unknown History Results Labs 03/23/23 04:47 03/23/23 04:47 Assessment and Plan (1) Cardiopulmonary arrest with successful resuscitation: Status: Acute (2) Aspiration into airway: Status: Acute (3) Liver cirrhosis: Status: Acute (4) Alcoholic liver disease: Status: Acute (5) Pulmonary edema: Status: Acute (6) Anemia: Status: Acute (7) Elevated lactic acid level: Status: Acute
--- NOTE | 2023-03-22 22:50 | P.PCNCC_ITS ---
Procedures Date of Service Date of Service: 03/22/23 <So Wild NP - Last Filed: 03/22/23 22:54> 03/23/23 <Taj Hernandes MD - Last Filed: 03/23/23 10:10> Intubation Intubation Comments: patient post cardiac arrest, with 7.5 ETT, require emergent exchange due to loss of volume and inappropriate placement. ?Patient re-intubated with 8. 5 cuffed ET tube under glide scope guidance with visualization of vocal cords, without immediate complications. ET w tube position verified with Chest XRAY. <So Wild NP - Last Filed: 03/22/23 22:54> Consent for Procedure: Emergent-no informed consent obtained <So Wild NP - Last Filed: 03/22/23 22:54> Time out performed: Yes <So Wild NP - Last Filed: 03/22/23 22:54> Sedative: propofol (100 of prop) <So Wild NP - Last Filed: 03/22/23 22:54> Mg given: 20 <So Wild NP - Last Filed: 03/22/23 22:54> Laryngoscope: fiber optic video scope <So Wild NP - Last Filed: 03/22/23 22:54> ET tube size: 8.5 <So Wild NP - Last Filed: 03/22/23 22:54> Tube secured depth (cm): 27 <So Wild NP - Last Filed: 03/22/23 22:54> Tube secured location: lips <So Wild NP - Last Filed: 03/22/23 22:54> Tube placement confirmation: visualized tube passing through cords, equal breath sounds bilaterally, no breath sounds over epigastrium and confirmation by capnometry <So Wild NP - Last Filed: 03/22/23 22:54> Patient tolerated procedure: well and no complications <So Wild NP - Last Filed: 03/22/23 22:54> Intubation complications: none <So Wild NP - Last Filed: 03/22/23 22:54>
[2023-03-22 22:56] LABS: MANUAL DIFF FLAG NO
[2023-03-22 22:58] LABS: Basophils Percent Auto 0.1 % (0-2); Eosinophils Percent Auto 0.1 % (0-4); Hematocrit 24.9 % (42.0-52.0); Hemoglobin 8.2 g/dl (14.0-18.0); Imm Gran Abs Auto 0.17 X10*3/uL (0.00-0.03); Lymphocytes Absolute Auto 0.7 X10*3/uL (1.2-4.9); Lymphocytes Percent Auto 8.3 % (20-40); Mean Corpuscular HGB Conc 32.9 g/dl (31.0-36.0); Mean Corpuscular Hemoglobin 29.3 pg (27.0-33.0); Mean Corpuscular Volume 88.9 fL (80.0-98.0); Mean Platelet Volume 11.3 fL (9.4-12.4); Monocytes Absolute Auto 0.7 X10*3/uL (0.1-1.2); Monocytes Percent Auto 8.3 % (2-11); Neutrophils Absolute Auto 6.9 x10*3/uL (2.0-8.3); Neutrophils Percent Auto 81.2 % (45-73); Platelet Count 180 X10*3/uL (160-400); Red Cell Distribution Width 24.6 % (11.0-16.0); White Blood Count 8.5 X10*3/uL (4.8-10.8)
[2023-03-22 23:03] LABS: INTERNATIONAL NORM RATIO 1.4 (0.9-1.1); Prothrombin Time 17.2 SEC (11.1-13.3); Venous Blood Gas Refer to POC result
[2023-03-22 23:05] LABS: VBG Base Excess 0.9 mmol/L; VBG HCO3 25 mmol/L (22-26); VBG pCO2 40 mmHg; VBG pO2 157 mmHg
[2023-03-22 23:06] LABS: Ammonia 95 umol/L (13-55)
[2023-03-22 23:16] LABS: Lactic Acid 3.5 mmol/L (0.5-2.0)
[2023-03-22 23:17] LABS: Alanine Aminotransferase 45 U/L (0-40); Albumin Level 3.1 g/dL (3.5-5.0); Alkaline Phosphatase 239 U/L (39-117); Anion Gap 14 (12-20); Aspartate Amino Transferase 248 U/L (5-37); Blood Urea Nitrogen 14 mg/dL (9-16); Calcium 9.7 mg/dL (8.4-10.2); Carbon Dioxide 24 mmol/L (22-29); Chloride 99 mmol/L (96-108); Estimated Glomerular Filt Rate > 60; Glucose Random 122 mg/dL (60-115); Potassium 3.4 mmol/L (3.3-5.1); Sodium 134 mmol/L (135-145); Total Protein 6.9 g/dL (6.5-8.0)
[2023-03-22 23:21] LABS: B Type Natriuretic Peptide 296 pg/mL (<100)
[2023-03-22 23:41] LABS: Magnesium 1.8 mg/dL (1.6-2.6); Phosphorus 4.1 mg/dL (2.7-4.5)
[2023-03-23] VITALS (52 sets, daily range): BP systolic 83–119; BP diastolic 38–77; PULSE 74–98; RESP 18–50; TEMP 35–39.9; O2SAT 91–99
[2023-03-23] MEDS: propofoL 1,000 MG/100 ML VIAL 34.5 MG IVCONT ×9 (00:08→23:40)
[2023-03-23] MEDS: Furosemide 40 MG/4 ML VIAL IVPUSH (00:12)
[2023-03-23] MEDS: Piperacillin Sodium/Tazobactam 4.5 GM in 0.9 % Sodium Chloride 100 ML IV ×4 (00:33→18:15)
[2023-03-23 00:53] LABS: Reflex Lactate? Lactic Acid Added
[2023-03-23] MEDS: Albumin Human 25 % 100 ML 200 ML IV ×2 (00:58→01:44)
[2023-03-23] MEDS: Potassium Chloride/H20 10 MEQ/100 ML PIGGYBACK 100 MEQ IV ×4 (01:10→04:25)
[2023-03-23] MEDS: Acetaminophen 1,000 MG/100 ML PIGGYBACK 400 MG IV ×2 (01:13→10:25)
[2023-03-23] MEDS: vancomycin/NS 2,000 MG/500 ML PLAST..BAG 250 MG IV (01:50)
[2023-03-23 01:51] LABS: ~Lactic Acid-LAB USE ONLY 3.6 mmol/L (0.5-2.0)
[2023-03-23] MEDS: Midazolam HCl/PF 2 MG/2 ML VIAL IVPUSH ×2 (02:51→20:16)
[2023-03-23 03:37] LABS: Reflex Lactate? 2 Y
[2023-03-23] MEDS: iohexoL 350 MG/ML 100 ML INFUS..BTL 85 ML IV (03:58)
[2023-03-23 04:58] LABS: VBG HCO3 28 mmol/L (22-26); VBG pCO2 35 mmHg; VBG pO2 37 mmHg
[2023-03-23 05:00] LABS: Venous Blood Gas Refer to POC result
[2023-03-23 05:23] LABS: MANUAL DIFF FLAG NO
[2023-03-23 05:24] LABS: Basophils Percent Auto 0.3 % (0-2); Eosinophils Percent Auto 0.2 % (0-4); Hematocrit 23.9 % (42.0-52.0); Hemoglobin 7.9 g/dl (14.0-18.0); Imm Gran Abs Auto 0.13 X10*3/uL (0.00-0.03); Imm Gran Pct Auto 1.5 % (0.0-0.4); Lymphocytes Absolute Auto 1.3 X10*3/uL (1.2-4.9); Lymphocytes Percent Auto 15.2 % (20-40); Mean Corpuscular HGB Conc 33.1 g/dl (31.0-36.0); Mean Corpuscular Hemoglobin 29.6 pg (27.0-33.0); Mean Corpuscular Volume 89.5 fL (80.0-98.0); Mean Platelet Volume 11.2 fL (9.4-12.4); Monocytes Absolute Auto 1.2 X10*3/uL (0.1-1.2); Monocytes Percent Auto 13.8 % (2-11); NRBC Pct Auto 0.7 /100WBC (0.0-0.2); Neutrophils Absolute Auto 6.1 x10*3/uL (2.0-8.3); Platelet Count 164 X10*3/uL (160-400); Red Blood Count 2.67 X10*6/uL (4.60-5.80); Red Cell Distribution Width 25.2 % (11.0-16.0); White Blood Count 8.8 X10*3/uL (4.8-10.8)
[2023-03-23 05:30] LABS: INTERNATIONAL NORM RATIO 1.6 (0.9-1.1); Prothrombin Time 19.2 SEC (11.1-13.3)
[2023-03-23 05:33] LABS: Ammonia 51 umol/L (13-55)
[2023-03-23 05:40] LABS: Magnesium 1.6 mg/dL (1.6-2.6); Phosphorus 2.4 mg/dL (2.7-4.5)
[2023-03-23] MEDS: Pantoprazole Sodium 40 MG/10 ML VIAL IVPUSH (05:40)
[2023-03-23 05:42] LABS: Alanine Aminotransferase 41 U/L (0-40); Albumin Level 3.3 g/dL (3.5-5.0); Alkaline Phosphatase 219 U/L (39-117); Anion Gap 16 (12-20); Aspartate Amino Transferase 233 U/L (5-37); Bilirubin Total 13.1 mg/dL (0.0-1.0); Blood Urea Nitrogen 17 mg/dL (9-16); Calcium 9.3 mg/dL (8.4-10.2); Carbon Dioxide 24 mmol/L (22-29); Chloride 96 mmol/L (96-108); Creatinine Clr Calc Pharmacy 101.6; Estimated Glomerular Filt Rate > 60; Glucose Random 108 mg/dL (60-115); Potassium 3.5 mmol/L (3.3-5.1); Sodium 132 mmol/L (135-145); Total Protein 6.8 g/dL (6.5-8.0)
[2023-03-23] MEDS: Albumin Human 25 % 100 ML IV ×4 (06:32→23:33)
[2023-03-23] MEDS: Potassium Phosphate/NS 15 MMOL/250 ML PLAST..BAG 62.5 MMOL IV (06:34)
--- NOTE | 2023-03-23 06:41 | PHA.PROG ---
Admission Date/Time: March 21, 2023 16:30 Indication:OTHER Weight in k kg Adjusted body weight in Kg: [place] body weight in Kg: Obesity Dosing Indication % IBW: Serum Creatinine - Last 168 Hours 03/21/23 03/22/23 03/22/23 12:34 07:02 22:52 Creatinine 0.67 0.67 0.95 03/23/23 04:47 Creatinine 1.29 Estimated CrCl and GFR - Last 168 Hours 03/21/23 03/22/23 03/22/23 12:34 07:02 22:52 Estim Creat Clear Calc 197.8 195.7 138.0 Estimated GFR > 60 > 60 > 60 03/23/23 04:47 Estim Creat Clear Calc 101.6 Estimated GFR > 60 Vancomycin Loading Dose: 2000 MG Current Vancomycin Dosing Regimen: 1000MG Q12H Vancomycin Monitoring using AUC goal of 400 - 600 range with trough as surrogate marker: AUC 422, TROUGH 13.8 Date and Time for next Vancomycin Level to be drawn: 03/24 @1100 Pharmacist Comments on Vancomycin Plan: - WENT MORE CONSERVATIVE (VS 1250MG Q12H) DUE TO STEADY RISE IN SCR Vancomycin dosing will take advantage of [employer] as a clinical decision support tool that uses Bayesian modeling to calculate individual patient's pharmacokinetic parameters and forecast the patient's drug concentration time course with the target goal AUC 24 range of 400 - 600 mg/L/hr.
--- NOTE | 2023-03-23 06:45 | PC.NURSE ---
Care assumed at 2220 post cardiac arrest. Patient intubated prior to arrival to unit. Propofol gtt initiated on arrival. ETT changed on arrival and 100mg propofol IVP administered from 100ml bottle. Vent oxygen delivery was at 80%, down to 70% at 0035, 60% at 0045 and 50% at 0240. OG tube placed on arrival to unit with yellow bilious drainage for an initial total of 600ml. Chavez catheter placed. Patient tolerated being transported to CT scan.
[2023-03-23] MEDS: Chlorhexidine Gluc Oral Rinse 15 ML MOUTHWASH BUCCAL ×3 (08:27→21:16)
[2023-03-23 09:42] LABS: Lactic Acid 2.1 mmol/L (0.5-2.0)
--- NOTE | 2023-03-23 10:11 | PM.CCPN ---
Subjective Subjective Date of Service: 03/23/23 Interval History: 37-year-old gentleman with underlying history of alcohol abuse, liver cirrhosis, bipolar disorder MDD admitted on 03/21/2023 with alcohol intoxication. Hospital course significant for abdominal pain for which patient was evaluated by General surgery on 03/22/2023 with no concern for cholecystitis. Further hospital stay complicated by cardiac arrest secondary to pulmonary aspiration of bilious gastric content with returned spontaneous circulation achieved after 3 around of CPR with patient intubated during the CPR and transferred to intensive care unit. In the intensive care unit patient required re-intubation with a large ET tube. OG drained approximately 1 L of bilious fluid. CT abdomen/ pelvis demonstrated dilated viral years with no definite transition point. Critical Care Time (minutes): 60 Physical Exam Vital Signs: Vital Signs: Last Vital Signs Temp 103.5 F H 03/23/23 10:00 Pulse 98 03/23/23 10:02 Resp 42 H 03/23/23 10:00 BP 119/66 03/23/23 10:02 Pulse Ox 94 03/23/23 10:00 O2 Del Method Mechanical Ventil ation 03/23/23 10:00 FiO2 60 03/23/23 10:00 BMI result Body Mass Index 34.4 Const: General: no acute distress and other ( sedated on the vent, jaundiced) Eyes: Sclerae: sclerae normal Neck: Neck: Yes no lymphadenopathy, Yes trachea midline and Yes supple Resp: Auscultation: clear to auscultation bilaterally Cardio: Rate: regular rate Rhythm: regular rhythm Heart sounds: no gallops, no murmurs and no rubs GI: Inspection: Yes distended Palpation (GI): Firmness to palpation present (GI) and Other GI palpation findings present ( Nontender) Auscultation: Hypoactive bowel sounds present Extrem: General: No clubbing, No cyanosis and Yes edema ( trace bilateral) Objective Data Labs 03/23/23 04:47 03/23/23 04:47 Labs: Laboratory Results - last 24 hr 03/22/23 03/22/23 03/22/23 12:21 21:47 22:52 WBC 8.5 RBC 2.80 L Hgb 8.2 L Hct 24.9 L MCV 88.9 MCH 29.3 MCHC 32.9 RDW 24.6 H Plt Count 180 MPV 11.3 Immature Gran % (Auto) 2.0 H Neut % (Auto) 81.2 H Lymph % (Auto) 8.3 L [place] % (Auto) 8.3 Eos % (Auto) 0.1 Baso % (Auto) 0.1 Lymph # (Auto) 0.7 L [place] # (Auto) 0.7 Eos # (Auto) 0.0 Baso # (Auto) 0.0 Abs Immat Gran (auto) 0.17 H Absolute Neuts (auto) 6.9 Absolute Nucleated RBC 0.000 Nucleated RBC % (auto) 0.0 PT 17.2 H INR 1.4 H VBG pH VBG pCO2 VBG pO2 VBG HCO3 VBG O2 Saturation VBG Base Excess Sodium 134 L Potassium 3.4 Chloride 99 Carbon Dioxide 24 Anion Gap 14 BUN 14 Creatinine 0.95 Estim Creat Clear Calc 138.0 Estimated GFR > 60 POC Glucose 100 Random Glucose 122 H Lactic Acid Lactic Acid F/U @ 2Hr Lactic Acid F/U @ 4Hr Calcium 9.7 Phosphorus 4.1 Magnesium 1.8 Total Bilirubin 13.0 H AST 248 H ALT 45 H Alkaline Phosphatase 239 H Ammonia Troponin I High Sens 31.0 D B-Natriuretic Peptide 296 H Total Protein 6.9 Albumin 3.1 L Stool Occult Blood NEGATIVE 03/22/23 03/22/23 03/23/23 22:53 22:55 01:33 WBC RBC Hgb Hct MCV MCH MCHC RDW Plt Count MPV Immature Gran % (Auto) Neut % (Auto) Lymph % (Auto) [place] % (Auto) Eos % (Auto) Baso % (Auto) Lymph # (Auto) [place] # (Auto) Eos # (Auto) Baso # (Auto) Abs Immat Gran (auto) Absolute Neuts (auto) Absolute Nucleated RBC Nucleated RBC % (auto) PT INR VBG pH 7.40 VBG pCO2 40 VBG pO2 157 VBG HCO3 25 VBG O2 Saturation 100.0 VBG Base Excess 0.9 Sodium Potassium Chloride Carbon Dioxide Anion Gap BUN Creatinine Estim Creat Clear Calc Estimated GFR POC Glucose Random Glucose Lactic Acid 3.5 H* Lactic Acid F/U @ 2Hr 3.6 H* Lactic Acid F/U @ 4Hr Calcium Phosphorus Magnesium Total Bilirubin AST ALT Alkaline Phosphatase Ammonia 95 H Troponin I High Sens B-Natriuretic Peptide Total Protein Albumin Stool Occult Blood 03/23/23 03/23/23 03/23/23 04:47 04:53 09:25 WBC 8.8 RBC 2.67 L Hgb 7.9 L Hct 23.9 L MCV 89.5 MCH 29.6 MCHC 33.1 RDW 25.2 H Plt Count 164 MPV 11.2 Immature Gran % (Auto) 1.5 H Neut % (Auto) 69.0 Lymph % (Auto) 15.2 L [place] % (Auto) 13.8 H Eos % (Auto) 0.2 Baso % (Auto) 0.3 Lymph # (Auto) 1.3 [place] # (Auto) 1.2 Eos # (Auto) 0.0 Baso # (Auto) 0.0 Abs Immat Gran (auto) 0.13 H Absolute Neuts (auto) 6.1 Absolute Nucleated RBC 0.060 H Nucleated RBC % (auto) 0.7 H PT 19.2 H INR 1.6 H VBG pH 7.50 H VBG pCO2 35 VBG pO2 37 VBG HCO3 28 H VBG O2 Saturation 54.0 VBG Base Excess 5.0 Sodium 132 L Potassium 3.5 Chloride 96 Carbon Dioxide 24 Anion Gap 16 BUN 17 H Creatinine 1.29 Estim Creat Clear Calc 101.6 Estimated GFR > 60 POC Glucose Random Glucose 108 Lactic Acid 2.1 H* Lactic Acid F/U @ 2Hr Lactic Acid F/U @ 4Hr 2.0 Calcium 9.3 Phosphorus 2.4 L Magnesium 1.6 Total Bilirubin 13.1 H AST 233 H ALT 41 H Alkaline Phosphatase 219 H Ammonia 51 Troponin I High Sens B-Natriuretic Peptide Total Protein 6.8 Albumin 3.3 L Stool Occult Blood Progress Note: A&P Assessment and plan (1) Aspiration into airway: Status: Acute (2) Cardiopulmonary arrest with successful resuscitation: Status: Acute (3) Liver cirrhosis: Status: Acute (4) Alcohol withdrawal: Status: Acute (5) Encephalopathy, hepatic: Status: Acute (6) Ileus: Status: Acute Plan Assessment: 37-year-old gentleman admitted with alcohol intoxication on the background of degree cirrhosis with hospital course complicated by cardiopulmonary arrest secondary to pulmonary aspiration likely secondary to underlying ileus versus SBO. Plan: Neuro: Brief non VF/VT respiratory/ cardiac arrest with underlying alcohol intoxication /withdrawal, hypothermia is not indicated. Cardiac: Cardiac arrest secondary to pulmonary aspiration. Continue to titrate off pressors as tolerated. 2D echo is ordered. Cardiology evaluation requested. Pulmonary: Intubated during the CPR on the background of aspiration of gastric content. Continue to titrate off ventilatory support as tolerated. Renal: No acute issues. Endo: No acute issues. GI: Alcoholic liver cirrhosis with hyperbilirubinemia. Ileus versus SBO. General surgery re-evaluation requested. ID: aspiration pneumonitis versus pneumonia after aspiration of gastric contents. Empirically covered with broad-spectrum antibiotics. Heme/Onc: No acute issues. Psych: No acute issues. Miscellaneous: No acute issues. Prophylaxis: Heparin, ppi Diet: NPO Critical care time spent: 60 minutes Quality Stroke Does the patient have a stroke diagnosis?: No VTE Prior VTE?: No VTE Risk Level:: Medical - moderate - high VTE Device Contraindication: N/A - Device Ordered VTE Drug Contraindication: Treatment Not Indicated
--- NOTE | 2023-03-23 11:13 | CA_ITS ---
Transthoracic Echocardiogram Patient (Last, First, Middle): Nelson López, Gender: Male Date of : 1985 Age: 37 Procedure Date: 03/23/2023 Procedure Type: Transthoracic Echocardiogram Location: ICU Height: 182.88 cm Weight: 114.76 kg BSA: 2.35 m2 Heart Rate: bpm BP: 108 / 64 mmHg Adhesive Bandage Making Operator: MARCIN Referring MD: Taj Hernandes MD Symptoms: s/p cardiac arrest Study Quality: Adequate ECG Rhythm: Sinus Conclusions: - The left ventricular systolic function is hyperdynamic. The visually estimated ejection fraction is >70%. - No obvious valvular pathology seen on this study. Findings Left Ventricle Normal left ventricular cavity size. There is mildly increased left ventricular wall thickness. The left ventricular systolic function is hyperdynamic. The visually estimated ejection fraction is >70%. There is no evidence of regional wall motion abnormalities. Diastolic function is normal for age. LV peak GLS -19.5%. Right Ventricle Mildly increased right ventricular cavity size. There is normal right ventricular systolic function. Atria Both atria are normal in size. Aortic Valve There is a normal trileaflet aortic valve. There is mild calcification of the aortic valve. There is no aortic valve stenosis. There is no aortic valve regurgitation. Mitral Valve The mitral valve appears normal. There is no mitral valve regurgitation. There is no mitral valve stenosis. Pulmonic Valve The pulmonic valve is likely normal. Tricuspid Valve There is mild tricuspid valve regurgitation. There is no evidence of pulmonary hypertension. Great Vessels The asc aorta is normal in size. Venous The inferior vena cava was not well visualized. (on ventilator) Pericardium/Pleural There is no evidence of pericardial effusion. Prior Study Comparison No prior study available for comparison. Recommendations, Care & Conclusions No obvious valvular pathology seen on this study. Measurements 2D Linear Measurements IVSd: 1.09 0.6-0.9/0.6-1.0 cm LVIDd: 4.94 3.9-5.3/4.2-5.9 cm LVIDd Index: 2.10 2.4-3.2/2.2-3.1 cm/m2 LVIDs: 2.92 2.0-3.6 cm LVPWd: 1.25 0.7-1.1 cm LA Diam: 4.10 2.7-3.8/3.0-4.0 cm LAIDs Index: 1.74 1.5-2.3 cm/m2 LV Mass: 275.89 67-162/88-224 g LV Mass Index: 117.40 43-95/49-115 g/m2 LVOT Diam: 2.20 3.0+(-)1.3 cm 2D Systolic Function EF 4C: 69.20 >55% EF 2C: 70.50 >55% EF BiP: 70.60 >55% Mitral Valve MV Pk E: 0.99 MV PK A: 0.60 MV Decel Time: 141.00 E/A: 1.70 E'Lateral: 15.30 E'Medial: 12.10 E/E' Med: 8.20 E/E' Lat: 6.50 PHT: 41.00 MVA PHT: 5.37 Decel Cassia: 7.04 Aortic Valve AoV Pk Og: 2.19 AoV Mn Og: 1.48 AoV VTI: 0.40 AoV Pk Grad: 19.00 Aov Mn Grad: 10.00 ISMA Cont.VTI: 2.84 LVOT LVOT Pk Og: 1.66 LVOT Mn Og: 1.07 LVOT VTI: 0.30 LVOT Pk Grad: 11.00 LVOT Mn Grad: 5.00 LVOT Diam: 2.20 LVOT Area: 3.80 Diastolic Function MV Pk E: 0.99 MV Pk A: 0.60 E/A: 1.70 E'Medial: 12.10 E/E' Med: 8.20 E' Laterial: 15.30 E/E' Lat: 6.50 Right Ventricle TAPSE (mm): 25.70 TVS' Og: 16.20 Tricuspid Valve TR Pk Og: 2.54 TR Pk Grad: 26.00 Great Vessels Aorta Sinus of Valsalva: 3.23 2.0-3.[address] [place]: 2.57 1.7-3.4 cm Ao Asc: 3.00 2.1-3.4 cm Updated in Other Vendor System with Status of Final Harvinder Redmond MD electronically signed on 03/23/2023 1:39:08 PM with status of Final
[2023-03-23 11:28] LABS: Reflex Lactate? Lactic Acid Added
[2023-03-23 11:31] LABS: Lactic Acid 2.1 mmol/L (0.5-2.0)
[2023-03-23] MEDS: dexmedeTOMIDidine HCL/NS 400 MCG/100 ML INFUS..BTL 28.75 MCG IVCONT (11:32)
[2023-03-23] MEDS: Heparin Sodium,Porcine 5,000 UNIT/ML VIAL 5000 UNIT SUBCUT ×2 (11:49→18:26)
--- NOTE | 2023-03-23 12:02 | P.PNGS_ITS ---
Subjective Subjective Date of Service: 03/23/23 Interval history: Patient on ventilator, sedated. Physical Exam 2 Vital Signs: Vital Signs: Last Vital Signs Temp 103.3 F H 03/23/23 11:02 Pulse 91 03/23/23 11:32 Resp 46 H 03/23/23 11:32 BP 89/43 L 03/23/23 11:30 Pulse Ox 96 03/23/23 11:00 O2 Del Method Mechanical Ventil ation 03/23/23 11:00 FiO2 60 03/23/23 11:25 BMI result Body Mass Index 34.4 GI: Other: Abdomen markedly distended. Rectal catheter with liquid stool Objective Data Active Medications Albuterol Sulfate (Albuterol Sulfate 90 Mcg 8 Gm Inhaler) 1 puff INHALE QID PRN PRN Reason: Shortness Of Breath Or Wheezing Last Admin: 03/22/23 17:37 Dose: 1 puff Documented By: ROCKY Chlorhexidine Gluconate (Chlorhexidine Gluc Oral Rinse 15 Ml Mouthwash) 15 ml BUCCAL TID [facility] Last Admin: 03/23/23 08:27 Dose: 15 ml Documented By: LEAH Clonazepam (Clonazepam 0.5 Mg Tablet) 0.5 mg PO DAILY PRN PRN Reason: panic attack(s) Last Admin: 03/21/23 18:49 Dose: 0.5 mg Documented By: REJI Docusate Sodium (Docusate Sodium 100 Mg Capsule) 100 mg PO BID [facility] Last Admin: 03/22/23 23:32 Dose: Not Given Documented By: MARILYN Non-Admin Reason: Physician Held Med Ferrous Sulfate (Ferrous Sulfate 324 Mg Tablet.) 324 mg PO DAILY [facility] Last Admin: 03/22/23 15:59 Dose: 324 mg Documented By: ROCKY Heparin Sodium (Porcine) (Heparin Sodium,Porcine 5,000 Unit/Ml Vial) 5,000 unit SUBCUT Q8H [facility] Last Admin: 03/23/23 11:49 Dose: 5,000 unit Documented By: LEAH Propofol (Diprivan) 1,000 mg in 100 mls @ 0 mls/hr IVCONT .Q0M [facility]; Protocol Last Titration: 03/23/23 10:59 Dose: 50 mcg/kg/min, 34.5 mls/hr Documented By: LEAH Norepinephrine Bitartrate (Levophed) 8 mg in 250 mls @ 0 mls/hr IV .Q0M [facility]; Protocol Last Titration: 03/23/23 11:15 Dose: 0.03 mcg/kg/min, 6.47 mls/hr Documented By: LEAH Piperacillin Sod/Tazobactam (Sod 4.5 gm/ Sodium Chloride) 100 mls @ 200 mls/hr IV Q6H [facility] Last Admin: 03/23/23 11:53 Dose: 200 mls/hr Documented By: LEAH Albumin Human (Kedbumin 25 %) 100 mls @ 100 mls/hr IV Q6H [facility] Stop: 03/24/23 00:44 Last Admin: 03/23/23 11:49 Dose: 100 mls/hr Documented By: LEAH Vancomycin HCl 1,000 mg/ (Sodium Chloride) 270 mls @ 270 mls/hr IV Q12H [facility] Dexmedetomidine HCl (Precedex) 400 mcg in 100 mls @ 0 mls/hr IVCONT .Q0M [facility]; Protocol Last Admin: 03/23/23 11:32 Dose: 1 mcg/kg/hr, 28.75 mls/hr Documented By: LAEH Lactulose (Lactulose 20 Gm/30 Ml Solution) 20 gm PO QID [facility] Last Admin: 03/22/23 23:32 Dose: Not Given Documented By: MARILYN Non-Admin Reason: Physician Held Med Morphine Sulfate (Morphine Sulfate 4 Mg/Ml Cartridge) 2 mg IVPUSH Q4H PRN; Protocol PRN Reason: Pain, Severe (Pain Scale 7-10) Last Admin: 03/22/23 15:59 Dose: 2 mg Documented By: ROCKY Ondansetron HCl (Ondansetron Hcl 4 Mg/2 Ml Vial) 4 mg IVPUSH Q8H PRN PRN Reason: Nausea and Vomiting Oxycodone HCl (Oxycodone Hcl Immed Release 5 Mg Tablet) 5 mg PO Q8H PRN PRN Reason: Pain, Moderate(Pain Scale 4-6) Last Admin: 03/22/23 15:59 Dose: 5 mg Documented By: ROCKY Pantoprazole Sodium (Pantoprazole Sodium 40 Mg/10 Ml Vial) 40 mg IVPUSH DAILY@0630 [facility] Last Admin: 03/23/23 05:40 Dose: 40 mg Documented By: REYNA Pharmacy Consult (Consult Rx Etoh Phenob Im/Po) 1 each MISCELLANE ONCE PRN; Protocol PRN Reason: Consult order Pharmacy Consult (Consult Rx Vancomycin Dosing) 1 each MISCELLANE DAILY PRN PRN Reason: Consult order Phenobarbital (Phenobarbital 30 Mg Tablet) 60 mg PO BID [facility]; Protocol Last Admin: 03/22/23 23:32 Dose: Not Given Documented By: MARILYN Non-Admin Reason: Physician Held Med Phenobarbital (Phenobarbital 30 Mg Tablet) 30 mg PO BID [facility]; Protocol Phenobarbital (Phenobarbital 30 Mg Tablet) 30 mg PO DAILY [facility]; Protocol Phenobarbital Sodium (Phenobarbital Sodium 130 Mg/Ml Vial) 130 mg IM ONCE PRN PRN Reason: Alcohol Withdrawal Last Admin: 03/22/23 18:04 Dose: 130 mg Documented By: ROCKY Phenobarbital Sodium (Phenobarbital Sodium 130 Mg/Ml Vial) 130 mg IM ONCE PRN PRN Reason: Alcohol Withdrawal Prednisolone Sodium Phosphate (Prednisolone Sodium Phosphate 15 Mg/5 Ml Solution) 40 mg PO DAILY [facility] Last Admin: 03/22/23 08:06 Dose: 40 mg Documented By: ROCKY Propranolol HCl (Propranolol Hcl 10 Mg Tablet) 10 mg PO BID PRN; Protocol PRN Reason: Anxiety Last Admin: 03/22/23 09:40 Dose: 10 mg Documented By: ROCKY Senna (Sennosides 8.6 Mg Tablet) 8.6 mg PO BEDTIME PRN PRN Reason: constipation Sodium Chloride (0.9 % Sodium Chloride Flush 3 Ml Syringe) 3 ml IVFLUSH QSHIFT [facility] Last Admin: 03/22/23 16:00 Dose: 3 ml Documented By: ROCKY Thiamine HCl (Thiamine Hcl 100 Mg Tablet) 100 mg PO DAILY [facility] Last Admin: 03/22/23 15:59 Dose: 100 mg Documented By: ROCKY Triamcinolone Acetonide (Triamcinolone Acet 0.5 % Cream 15 Gm Tube) 1 appl TOPICAL DAILY PRN PRN Reason: Rash Labs 03/23/23 04:47 03/23/23 04:47 Labs: Laboratory Results - last 24 hr 03/22/23 03/22/23 03/22/23 12:21 21:47 22:52 MCV 88.9 MCH 29.3 MCHC 32.9 RDW 24.6 H Plt Count 180 MPV 11.3 Immature Gran % (Auto) 2.0 H Neut % (Auto) 81.2 H Lymph % (Auto) 8.3 L [place] % (Auto) 8.3 Eos % (Auto) 0.1 Baso % (Auto) 0.1 Lymph # (Auto) 0.7 L [place] # (Auto) 0.7 Eos # (Auto) 0.0 Baso # (Auto) 0.0 Abs Immat Gran (auto) 0.17 H Absolute Neuts (auto) 6.9 Absolute Nucleated RBC 0.000 Nucleated RBC % (auto) 0.0 PT 17.2 H INR 1.4 H VBG pH VBG pCO2 VBG pO2 VBG HCO3 VBG O2 Saturation VBG Base Excess Anion Gap 14 Estim Creat Clear Calc 138.0 Estimated GFR > 60 POC Glucose 100 Random Glucose 122 H Lactic Acid Lactic Acid F/U @ 2Hr Lactic Acid F/U @ 4Hr Calcium 9.7 Phosphorus 4.1 Magnesium 1.8 Total Bilirubin 13.0 H AST 248 H ALT 45 H Alkaline Phosphatase 239 H Ammonia B-Natriuretic Peptide 296 H Total Protein 6.9 Albumin 3.1 L Stool Occult Blood NEGATIVE 03/22/23 03/22/23 03/23/23 22:53 22:55 01:33 MCV MCH MCHC RDW Plt Count MPV Immature Gran % (Auto) Neut % (Auto) Lymph % (Auto) [place] % (Auto) Eos % (Auto) Baso % (Auto) Lymph # (Auto) [place] # (Auto) Eos # (Auto) Baso # (Auto) Abs Immat Gran (auto) Absolute Neuts (auto) Absolute Nucleated RBC Nucleated RBC % (auto) PT INR VBG pH 7.40 VBG pCO2 40 VBG pO2 157 VBG HCO3 25 VBG O2 Saturation 100.0 VBG Base Excess 0.9 Anion Gap Estim Creat Clear Calc Estimated GFR POC Glucose Random Glucose Lactic Acid 3.5 H* Lactic Acid F/U @ 2Hr 3.6 H* Lactic Acid F/U @ 4Hr Calcium Phosphorus Magnesium Total Bilirubin AST ALT Alkaline Phosphatase Ammonia 95 H B-Natriuretic Peptide Total Protein Albumin Stool Occult Blood 11/18/23 11/18/23 11/18/23 04:47 04:53 09:25 MCV 89.5 MCH 29.6 MCHC 33.1 RDW 25.2 H Plt Count 164 MPV 11.2 Immature Gran % (Auto) 1.5 H Neut % (Auto) 69.0 Lymph % (Auto) 15.2 L [place] % (Auto) 13.8 H Eos % (Auto) 0.2 Baso % (Auto) 0.3 Lymph # (Auto) 1.3 [place] # (Auto) 1.2 Eos # (Auto) 0.0 Baso # (Auto) 0.0 Abs Immat Gran (auto) 0.13 H Absolute Neuts (auto) 6.1 Absolute Nucleated RBC 0.060 H Nucleated RBC % (auto) 0.7 H PT 19.2 H INR 1.6 H VBG pH 7.50 H VBG pCO2 35 VBG pO2 37 VBG HCO3 28 H VBG O2 Saturation 54.0 VBG Base Excess 5.0 Anion Gap 16 Estim Creat Clear Calc 101.6 Estimated GFR > 60 POC Glucose Random Glucose 108 Lactic Acid 2.1 H* Lactic Acid F/U @ 2Hr Lactic Acid F/U @ 4Hr 2.0 Calcium 9.3 Phosphorus 2.4 L Magnesium 1.6 Total Bilirubin 13.1 H AST 233 H ALT 41 H Alkaline Phosphatase 219 H Ammonia 51 B-Natriuretic Peptide Total Protein 6.8 Albumin 3.3 L Stool Occult Blood 03/23/23 10:55 MCV MCH MCHC RDW Plt Count MPV Immature Gran % (Auto) Neut % (Auto) Lymph % (Auto) [place] % (Auto) Eos % (Auto) Baso % (Auto) Lymph # (Auto) [place] # (Auto) Eos # (Auto) Baso # (Auto) Abs Immat Gran (auto) Absolute Neuts (auto) Absolute Nucleated RBC Nucleated RBC % (auto) PT INR VBG pH VBG pCO2 VBG pO2 VBG HCO3 VBG O2 Saturation VBG Base Excess Anion Gap Estim Creat Clear Calc Estimated GFR POC Glucose Random Glucose Lactic Acid 2.1 H* Lactic Acid F/U @ 2Hr Lactic Acid F/U @ 4Hr Calcium Phosphorus Magnesium Total Bilirubin AST ALT Alkaline Phosphatase Ammonia B-Natriuretic Peptide Total Protein Albumin Stool Occult Blood Procedures Date of Service Date of Service: 03/23/23 Progress Note: A&P Assessment and plan (1) Ileus: Status: Acute Plan CT scan suggestive of ileus, less likely SBO. I discussed case with ICU attending, and plan is to arrange for NG tube contrast CT scan to rule out SBO. Time Spent With Patient Time: Total time managing care of this patient today ____ minutes. Quality Stroke Does the patient have a stroke diagnosis?: No VTE Prior VTE?: No VTE Risk Level:: Medical - moderate - high VTE Device Contraindication: N/A - Device Ordered VTE Drug Contraindication: Treatment Not Indicated
[2023-03-23 13:16] LABS: Reflex Lactate? Lactic Acid Added
[2023-03-23] MEDS: vancomycin HCL 1,000 MG in 0.9 % Sodium Chloride 250 ML 270 MG IV (13:34)
[2023-03-23] MEDS: dexmedeTOMIDidine HCL/NS 400 MCG/100 ML INFUS..BTL 40.25 MCG IVCONT ×3 (13:50→18:51)
[2023-03-23 14:03] LABS: ~Lactic Acid-LAB USE ONLY 1.5 mmol/L (0.5-2.0)
[2023-03-23] MEDS: Norepinephrine Bitartrate/D5W 8 MG/250 ML PLAST..BAG 19.41 MG IV (15:03)
[2023-03-23] MEDS: Barium Sulfate Oral (Mocha) 450 ML ORAL.SUSP 900 ML PO (16:38)
[2023-03-23] MEDS: Lactulose 320 GM/480 ML SOLUTION 200 GM PR (19:44)
[2023-03-23] MEDS: dexmedeTOMIDidine HCL/NS 400 MCG/100 ML INFUS..BTL 37.38 MCG IVCONT (21:21)
[2023-03-24] VITALS (36 sets, daily range): BP systolic 93–113; BP diastolic 51–69; PULSE 80–90; RESP 26–44; TEMP 35–39.5; O2SAT 91–97
[2023-03-24] MEDS: dexmedeTOMIDidine HCL/NS 400 MCG/100 ML INFUS..BTL 37.38 MCG IVCONT ×5 (00:01→19:42)
[2023-03-24] MEDS: Piperacillin Sodium/Tazobactam 4.5 GM in 0.9 % Sodium Chloride 100 ML IV ×5 (00:14→23:38)
[2023-03-24] MEDS: vancomycin HCL 1,000 MG in 0.9 % Sodium Chloride 250 ML 166.7 MG IV (01:03)
[2023-03-24] MEDS: propofoL 1,000 MG/100 ML VIAL 34.5 MG IVCONT ×5 (02:34→18:27)
[2023-03-24] MEDS: Heparin Sodium,Porcine 5,000 UNIT/ML VIAL 5000 UNIT SUBCUT ×3 (02:35→18:11)
[2023-03-24] MEDS: Norepinephrine Bitartrate/D5W 8 MG/250 ML PLAST..BAG 19.41 MG IV ×2 (04:10→17:17)
[2023-03-24] MEDS: Pantoprazole Sodium 40 MG/10 ML VIAL IVPUSH (05:38)
[2023-03-24] MEDS: Midazolam HCl/PF 2 MG/2 ML VIAL IVPUSH (05:42)
[2023-03-24 05:47] LABS: VBG HCO3 22 mmol/L (22-26); VBG pCO2 25 mmHg; VBG pH 7.54 (7.32-7.43); VBG pO2 56 mmHg
[2023-03-24 05:53] LABS: Hematocrit 24.7 % (42.0-52.0); Mean Corpuscular HGB Conc 32.4 g/dl (31.0-36.0); Mean Corpuscular Hemoglobin 29.3 pg (27.0-33.0); Mean Corpuscular Volume 90.5 fL (80.0-98.0); Mean Platelet Volume 12.2 fL (9.4-12.4); NRBC Pct Auto 0.9 /100WBC (0.0-0.2); Platelet Count 168 X10*3/uL (160-400); Red Blood Count 2.73 X10*6/uL (4.60-5.80); Red Cell Distribution Width 25.7 % (11.0-16.0); White Blood Count 10.2 X10*3/uL (4.8-10.8)
[2023-03-24 06:11] LABS: Alanine Aminotransferase 35 U/L (0-40); Albumin Level 3.6 g/dL (3.5-5.0); Alkaline Phosphatase 158 U/L (39-117); Anion Gap 17 (12-20); Aspartate Amino Transferase 151 U/L (5-37); Bilirubin Total 11.8 mg/dL (0.0-1.0); Blood Urea Nitrogen 20 mg/dL (9-16); Calcium 8.9 mg/dL (8.4-10.2); Carbon Dioxide 21 mmol/L (22-29); Chloride 99 mmol/L (96-108); Estimated Glomerular Filt Rate 50; Glucose Random 129 mg/dL (60-115); Magnesium 1.6 mg/dL (1.6-2.6); Phosphorus 2.3 mg/dL (2.7-4.5); Potassium 2.9 mmol/L (3.3-5.1); Sodium 134 mmol/L (135-145); Total Protein 6.9 g/dL (6.5-8.0)
[2023-03-24 06:50] LABS: Venous Blood Gas Refer to POC result
[2023-03-24 07:29] LABS: Atypical Lymph Absolute Manual 0.1 x10*3/uL; Atypical Lymphs Percent Manual 1 % (0-6); Band Neutrophils Percent 26 % (3-5); Basophils Abs Manual 0.2 X10*3/uL (0.0-0.2); Basophils Percent Manual 2 % (0-2); Eosinophils Absolute Manual 0.4 X10*3/uL (0.0-0.4); Eosinophils Percent Manual 4 % (0-4); Lymphocytes Absolute Manual 1.1 X10*3/uL (1.2-4.9); Lymphocytes Percent Manual 11 % (20-40); Monocytes Absolute Manual 0.1 X10*3/uL (0.1-1.2); Monocytes Percent Manual 1 % (2-11); Myelocytes Absolute 0.1 X10*/uL; Myelocytes Percent 1 %; Neutrophils Absolute Manual 8.2 X10*3/uL (2.0-8.3); Neutrophils Percent Manual 54 % (45-73); Nucleated Red Blood Cells 2 /100WBC (0-0)
[2023-03-24 07:33] LABS: Acanthocytes 1+ (0-2) /OIF; Macrocytosis 2+ (15-30) /OIF; RBC Morphology NOTED; Schistocytes 1+ (0-2) /OIF; Spherocytes 1+ (0-2) /OIF; Target Cells 1+ (5-14) /OIF
[2023-03-24 07:34] LABS: Burr Cells 2+ (3-5) /OIF; Hypochromasia 1+ (5-14) /OIF
[2023-03-24 07:35] LABS: Platelet Estimate NORMAL (NORMAL); Platelet Morphology Comment NORMAL; Toxic Vacuolation PRESENT
[2023-03-24] MEDS: Potassium Phosphate/NS 15 MMOL/250 ML PLAST..BAG 62.5 MMOL IV (07:46)
[2023-03-24] MEDS: Potassium Chloride/H20 40 MEQ/100 ML PIGGYBACK 100 MEQ IV (07:46)
[2023-03-24] MEDS: Chlorhexidine Gluc Oral Rinse 15 ML MOUTHWASH BUCCAL ×3 (07:46→20:24)
[2023-03-24] MEDS: propofoL 1,000 MG/100 ML VIAL 27.6 MG IVCONT (08:49)
--- NOTE | 2023-03-24 09:37 | P.PNCC_ITS ---
Subjective Subjective Date of Service: 03/24/23 Interval History: 37-year-old gentleman with underlying history of alcohol abuse, liver cirrhosis, bipolar disorder MDD admitted on 03/21/2023 with alcohol intoxication. Hospital course significant for abdominal pain for which patient was evaluated by General surgery on 03/22/2023 with no concern for cholecystitis. Further hospital stay complicated by cardiac arrest secondary to pulmonary aspiration of bilious gastric content with returned spontaneous circulation achieved after 3 around of CPR with patient intubated during the CPR and transferred to intensive care unit. In the intensive care unit patient required re-intubation with a large ET tube. OG drained approximately 1 L of bilious fluid. CT abdomen/ pelvis demonstrated dilated bowel loops with no definite transition point. Re- evaluated by General surgery. No events overnight. Critical Care Time (minutes): 45 Physical Exam 2 Vital Signs: Vital Signs: Last Vital Signs Temp 101.7 F H 03/24/23 08:52 Pulse 86 03/24/23 08:52 Resp 41 H 03/24/23 08:52 BP 97/60 03/24/23 08:52 Pulse Ox 93 03/24/23 08:52 O2 Del Method Mechanical Ventil ation 03/24/23 08:52 O2 Flow Rate 50 03/24/23 08:52 FiO2 50 03/24/23 08:00 BMI result Body Mass Index 34.4 Const: General: no acute distress and other (Sedated on the vent, jaundiced) Eyes: Sclerae: scleral abnormal (Icteric) Neck: Neck: Yes no lymphadenopathy, Yes trachea midline and Yes supple Resp: Effort & Inspection: normal respiratory effort and no respiratory distress Auscultation: clear to auscultation bilaterally Cardio: Rate: regular rate Rhythm: regular rhythm Heart sounds: no gallops, no murmurs and no rubs GI: Inspection: Yes distended Palpation (GI): Firmness to palpation present (GI) and Other GI palpation findings present ( Nontender) Auscultation: H ypoactive bowel sounds present Extrem: General: No clubbing, No cyanosis and Yes edema (Trace bilateral) Objective Data Labs 03/24/23 05:37 03/24/23 05:38 Labs: Laboratory Results - last 24 hr 03/23/23 03/23/23 03/23/23 09:25 10:55 13:31 WBC RBC Hgb Hct MCV MCH MCHC RDW Plt Count MPV Immature Gran % (Auto) Neut % (Auto) Lymph % (Auto) Gillespie % (Auto) Eos % (Auto) Baso % (Auto) Lymph # (Auto) Gillespie # (Auto) Eos # (Auto) Baso # (Auto) Abs Immat Gran (auto) Absolute Neuts (auto) Absolute Nucleated RBC Nucleated RBC % (auto) Neutrophils % (Manual) Band Neutrophils % Lymphocytes % (Manual) Atypical Lymphs % (Man) Monocytes % (Manual) Eosinophils % (Manual) Basophils % (Manual) Myelocytes % Abs Neuts (Manual) Lymphocytes # (Manual) Atyp Lymphs # (Manual) Monocytes # (Manual) Eosinophils # (Manual) Basophils # (Manual) Myelocytes # Nucleated RBCs Toxic Vacuolation Platelet Estimate Plt Morphology Comment RBC Morphology Hypochromasia Macrocytosis Spherocytes Target Cells [place] Cells Acanthocytes (Spur) Schistocytes VBG pH VBG pCO2 VBG pO2 VBG HCO3 VBG O2 Saturation VBG Base Excess Sodium Potassium Chloride Carbon Dioxide Anion Gap BUN Creatinine Estim Creat Clear Calc Estimated GFR Random Glucose Lactic Acid 2.1 H* 2.1 H* Lactic Acid F/U @ 2Hr 1.5 Calcium Phosphorus Magnesium Total Bilirubin AST ALT Alkaline Phosphatase Total Protein Albumin 03/24/23 03/24/23 03/24/23 05:37 05:38 05:41 WBC 10.2 RBC 2.73 L Hgb 8.0 L Hct 24.7 L MCV 90.5 MCH 29.3 MCHC 32.4 RDW 25.7 H Plt Count 168 MPV 12.2 Immature Gran % (Auto) Cancelled Neut % (Auto) Cancelled Lymph % (Auto) Cancelled Gillespie % (Auto) Cancelled Eos % (Auto) Cancelled Baso % (Auto) Cancelled Lymph # (Auto) Cancelled Gillespie # (Auto) Cancelled Eos # (Auto) Cancelled Baso # (Auto) Cancelled Abs Immat Gran (auto) Cancelled Absolute Neuts (auto) Cancelled Absolute Nucleated RBC 0.090 H Nucleated RBC % (auto) 0.9 H Neutrophils % (Manual) 54 Band Neutrophils % 26 H Lymphocytes % (Manual) 11 L Atypical Lymphs % (Man) 1 Monocytes % (Manual) 1 L Eosinophils % (Manual) 4 Basophils % (Manual) 2 Myelocytes % 1 Abs Neuts (Manual) 8.2 Lymphocytes # (Manual) 1.1 L Atyp Lymphs # (Manual) 0.1 Monocytes # (Manual) 0.1 Eosinophils # (Manual) 0.4 Basophils # (Manual) 0.2 Myelocytes # 0.1 Nucleated RBCs 2 H Toxic Vacuolation PRESENT Platelet Estimate NORMAL Plt Morphology Comment NORMAL RBC Morphology NOTED Hypochromasia 1+ (5-14) Macrocytosis 2+ (15-30) Spherocytes 1+ (0-2) Target Cells 1+ (5-14) [place] Cells 2+ (3-5) Acanthocytes (Spur) 1+ (0-2) Schistocytes 1+ (0-2) VBG pH 7.54 H VBG pCO2 25 VBG pO2 56 VBG HCO3 22 VBG O2 Saturation 88.0 VBG Base Excess 1.0 Sodium 134 L Potassium 2.9 L Chloride 99 Carbon Dioxide 21 L Anion Gap 17 BUN 20 H Creatinine 1.56 H Estim Creat Clear Calc 84.0 Estimated GFR 50 Random Glucose 129 H Lactic Acid Lactic Acid F/U @ 2Hr Calcium 8.9 Phosphorus 2.3 L Magnesium 1.6 Total Bilirubin 11.8 H AST 151 H ALT 35 Alkaline Phosphatase 158 H Total Protein 6.9 Albumin 3.6 Microbiology Microbiology Results: Microbiology 03/22/23 23:25 Blood - Venous Blood Culture - Preliminary No growth after 24 hours. 03/22/23 23:25 Blood - Venous Blood Culture - Preliminary No growth after 24 hours. Progress Note: A&P Assessment and plan (1) Ileus: Status: Acute (2) Aspiration into airway: Status: Acute (3) Cardiopulmonary arrest with successful resuscitation: Status: Acute (4) Liver cirrhosis: Status: Acute (5) Encephalopathy, hepatic: Status: Acute (6) Alcohol withdrawal: Status: Acute (7) Bipolar 1 disorder: Status: Acute Plan Assessment: 37-year-old gentleman admitted with alcohol intoxication on the background of degree cirrhosis with hospital course complicated by cardiopulmonary arrest secondary to pulmonary aspiration likely secondary to underlying ileus versus SBO. Plan: Neuro: Brief non VF/VT respiratory/ cardiac arrest with underlying alcohol intoxication /withdrawal, hypothermia is not indicated. Cardiac: Cardiac arrest secondary to pulmonary aspiration. Continue to titrate off pressors as tolerated. 2D echo is normal. Pulmonary: Intubated during the CPR on the background of aspiration of gastric content. Continue to titrate off ventilatory support as tolerated. Renal: No acute issues. Endo: No acute issues. GI: Alcoholic liver cirrhosis with hyperbilirubinemia. Ileus versus low- grade SBO. Renal surgery service care appreciated. ID: aspiration pneumonitis versus pneumonia after aspiration of gastric contents. Empirically covered with broad-spectrum antibiotics. Heme/Onc: No acute issues. Psych: No acute issues. Miscellaneous: No acute issues. Prophylaxis: Heparin, ppi Diet: NPO Critical care time spent: 45 minutes Quality Stroke Does the patient have a stroke diagnosis?: No VTE Prior VTE?: No VTE Risk Level:: Medical - moderate - high VTE Device Contraindication: N/A - Device Ordered VTE Drug Contraindication: Treatment Not Indicated
[2023-03-24] MEDS: Lactulose 320 GM/480 ML SOLUTION 200 GM PR (10:26)
--- NOTE | 2023-03-24 10:51 | P.PNGS_ITS ---
Subjective Subjective Date of Service: 03/24/23 Interval history: Patient is essentially status quo. Intubated. Still putting out liquid stool in rectal drained. CT scan demonstrates contrast reaching colon with significant ileus. No evidence of gross SBO Physical Exam 2 Vital Signs: Vital Signs: Last Vital Signs Temp 102.2 F H 03/24/23 10:38 Pulse 89 03/24/23 10:38 Resp 42 H 03/24/23 10:44 BP 113/69 03/24/23 10:38 Pulse Ox 94 03/24/23 10:38 O2 Del Method Mechanical Ventil ation 03/24/23 10:38 O2 Flow Rate 50 03/24/23 08:52 FiO2 50 03/24/23 10:38 BMI result Body Mass Index 34.4 Cardio: Other: Distended, minimally less so from yesterday. Patient intubated and sedated Objective Data Active Medications Albuterol Sulfate (Albuterol Sulfate 90 Mcg 8 Gm Inhaler) 1 puff INHALE QID PRN PRN Reason: Shortness Of Breath Or Wheezing Last Admin: 03/22/23 17:37 Dose: 1 puff Documented By: ROCKY Chlorhexidine Gluconate (Chlorhexidine Gluc Oral Rinse 15 Ml Mouthwash) 15 ml BUCCAL TID [facility] Last Admin: 03/24/23 07:46 Dose: 15 ml Documented By: LEAH Clonazepam (Clonazepam 0.5 Mg Tablet) 0.5 mg PO DAILY PRN PRN Reason: panic attack(s) Last Admin: 03/21/23 18:49 Dose: 0.5 mg Documented By: REJI Docusate Sodium (Docusate Sodium 100 Mg Capsule) 100 mg PO BID [facility] Last Admin: 03/22/23 23:32 Dose: Not Given Documented By: MARILYN Non-Admin Reason: Physician Held Med Ferrous Sulfate (Ferrous Sulfate 324 Mg Tablet.Dr) 324 mg PO DAILY [facility] Last Admin: 03/22/23 15:59 Dose: 324 mg Documented By: ROCKY Heparin Sodium (Porcine) (Heparin Sodium,Porcine 5,000 Unit/Ml Vial) 5,000 unit SUBCUT Q8H [facility] Last Admin: 03/24/23 02:35 Dose: 5,000 unit Documented By: REYNA Propofol (Diprivan) 1,000 mg in 100 mls @ 0 mls/hr IVCONT .Q0M MEÑO; Protocol Last Titration: 03/24/23 10:18 Dose: 30 mcg/kg/min, 20.7 mls/hr Documented By: LEAH Norepinephrine Bitartrate (Levophed) 8 mg in 250 mls @ 0 mls/hr IV .Q0M MEÑO; Protocol Last Admin: 03/24/23 04:10 Dose: 0.09 mcg/kg/min, 19.41 mls/hr Documented By: REYNA Piperacillin Sod/Tazobactam (Sod 4.5 gm/ Sodium Chloride) 100 mls @ 200 mls/hr IV Q6H MEÑO Last Infusion: 03/24/23 06:03 Dose: Infused Documented By: REYNA Vancomycin HCl 1,000 mg/ (Sodium Chloride) 270 mls @ 270 mls/hr IV Q12H ME[facility]O Last Infusion: 03/24/23 02:55 Dose: Infused Documented By: REYNA Dexmedetomidine HCl (Precedex) 400 mcg in 100 mls @ 0 mls/hr IVCONT .Q0M MEÑO; Protocol Last Titration: 03/24/23 10:44 Dose: 1.2 mcg/kg/hr, 34.5 mls/hr Documented By: LEAH Lactulose (Lactulose 20 Gm/30 Ml Solution) 20 gm PO QID [facility] Last Admin: 03/22/23 23:32 Dose: Not Given Documented By: MARILYN Non-Admin Reason: Physician Held Med Midazolam HCl (Midazolam Hcl/Pf 2 Mg/2 Ml Vial) 2 mg IVPUSH Q2H PRN PRN Reason: Ventilator synchrony Last Admin: 03/24/23 05:42 Dose: 2 mg Documented By: REYNA Morphine Sulfate (Morphine Sulfate 4 Mg/Ml Cartridge) 2 mg IVPUSH Q4H PRN; Protocol PRN Reason: Pain, Severe (Pain Scale 7-10) Last Admin: 03/22/23 15:59 Dose: 2 mg Documented By: ROCKY Ondansetron HCl (Ondansetron Hcl 4 Mg/2 Ml Vial) 4 mg IVPUSH Q8H PRN PRN Reason: Nausea and Vomiting Oxycodone HCl (Oxycodone Hcl Immed Release 5 Mg Tablet) 5 mg PO Q8H PRN PRN Reason: Pain, Moderate(Pain Scale 4-6) Last Admin: 03/22/23 15:59 Dose: 5 mg Documented By: ROCKY Pantoprazole Sodium (Pantoprazole Sodium 40 Mg/10 Ml Vial) 40 mg IVPUSH DAILY@0630 [facility] Last Admin: 03/24/23 05:38 Dose: 40 mg Documented By: REYNA Pharmacy Consult (Consult Rx Etoh Phenob Im/Po) 1 each MISCELLANE ONCE PRN; Protocol PRN Reason: Consult order Pharmacy Consult (Consult Rx Vancomycin Dosing) 1 each MISCELLANE DAILY PRN PRN Reason: Consult order Phenobarbital (Phenobarbital 30 Mg Tablet) 60 mg PO BID [facility]; Protocol Last Admin: 03/22/23 23:32 Dose: Not Given Documented By: MARILYN Non-Admin Reason: Physician Held Med Phenobarbital (Phenobarbital 30 Mg Tablet) 30 mg PO BID [facility]; Protocol Phenobarbital (Phenobarbital 30 Mg Tablet) 30 mg PO DAILY [facility]; Protocol Phenobarbital Sodium (Phenobarbital Sodium 130 Mg/Ml Vial) 130 mg IM ONCE PRN PRN Reason: Alcohol Withdrawal Last Admin: 03/22/23 18:04 Dose: 130 mg Documented By: ROCKY Phenobarbital Sodium (Phenobarbital Sodium 130 Mg/Ml Vial) 130 mg IM ONCE PRN PRN Reason: Alcohol Withdrawal Prednisolone Sodium Phosphate (Prednisolone Sodium Phosphate 15 Mg/5 Ml Solution) 40 mg PO DAILY [facility] Last Admin: 03/22/23 08:06 Dose: 40 mg Documented By: ROCKY Propranolol HCl (Propranolol Hcl 10 Mg Tablet) 10 mg PO BID PRN; Protocol PRN Reason: Anxiety Last Admin: 03/22/23 09:40 Dose: 10 mg Documented By: ROCKY Senna (Sennosides 8.6 Mg Tablet) 8.6 mg PO BEDTIME PRN PRN Reason: constipation Sodium Chloride (0.9 % Sodium Chloride Flush 3 Ml Syringe) 3 ml IVFLUSH QSHIFT [facility] Last Admin: 03/22/23 16:00 Dose: 3 ml Documented By: ROCKY Thiamine HCl (Thiamine Hcl 100 Mg Tablet) 100 mg PO DAILY [facility] Last Admin: 03/22/23 15:59 Dose: 100 mg Documented By: ROCKY Triamcinolone Acetonide (Triamcinolone Acet 0.5 % Cream 15 Gm Tube) 1 appl TOPICAL DAILY PRN PRN Reason: Rash Labs 03/24/23 05:37 03/24/23 05:38 Labs: Laboratory Results - last 24 hr 03/23/23 03/23/23 03/24/23 10:55 13:31 05:37 MCV 90.5 MCH 29.3 MCHC 32.4 RDW 25.7 H Plt Count 168 MPV 12.2 Immature Gran % (Auto) Cancelled Neut % (Auto) Cancelled Lymph % (Auto) Cancelled [place] % (Auto) Cancelled Eos % (Auto) Cancelled Baso % (Auto) Cancelled Lymph # (Auto) Cancelled [place] # (Auto) Cancelled Eos # (Auto) Cancelled Baso # (Auto) Cancelled Abs Immat Gran (auto) Cancelled Absolute Neuts (auto) Cancelled Absolute Nucleated RBC 0.090 H Nucleated RBC % (auto) 0.9 H Neutrophils % (Manual) 54 Band Neutrophils % 26 H Lymphocytes % (Manual) 11 L Atypical Lymphs % (Man) 1 Monocytes % (Manual) 1 L Eosinophils % (Manual) 4 Basophils % (Manual) 2 Myelocytes % 1 Abs Neuts (Manual) 8.2 Lymphocytes # (Manual) 1.1 L Atyp Lymphs # (Manual) 0.1 Monocytes # (Manual) 0.1 Eosinophils # (Manual) 0.4 Basophils # (Manual) 0.2 Myelocytes # 0.1 Nucleated RBCs 2 H Toxic Vacuolation PRESENT Platelet Estimate NORMAL Plt Morphology Comment NORMAL RBC Morphology NOTED Hypochromasia 1+ (5-14) Macrocytosis 2+ (15-30) Spherocytes 1+ (0-2) Target Cells 1+ (5-14) Frank Cells 2+ (3-5) Acanthocytes (Spur) 1+ (0-2) Schistocytes 1+ (0-2) VBG pH VBG pCO2 VBG pO2 VBG HCO3 VBG O2 Saturation VBG Base Excess Anion Gap Estim Creat Clear Calc Estimated GFR Random Glucose Lactic Acid 2.1 H* Lactic Acid F/U @ 2Hr 1.5 Calcium Phosphorus Magnesium Total Bilirubin AST ALT Alkaline Phosphatase Total Protein Albumin 03/24/23 03/24/23 05:38 05:41 MCV MCH MCHC RDW Plt Count MPV Immature Gran % (Auto) Neut % (Auto) Lymph % (Auto) [place] % (Auto) Eos % (Auto) Baso % (Auto) Lymph # (Auto) [place] # (Auto) Eos # (Auto) Baso # (Auto) Abs Immat Gran (auto) Absolute Neuts (auto) Absolute Nucleated RBC Nucleated RBC % (auto) Neutrophils % (Manual) Band Neutrophils % Lymphocytes % (Manual) Atypical Lymphs % (Man) Monocytes % (Manual) Eosinophils % (Manual) Basophils % (Manual) Myelocytes % Abs Neuts (Manual) Lymphocytes # (Manual) Atyp Lymphs # (Manual) Monocytes # (Manual) Eosinophils # (Manual) Basophils # (Manual) Myelocytes # Nucleated RBCs Toxic Vacuolation Platelet Estimate Plt Morphology Comment RBC Morphology Hypochromasia Macrocytosis Spherocytes Target Cells Frank Cells Acanthocytes (Spur) Schistocytes VBG pH 7.54 H VBG pCO2 25 VBG pO2 56 VBG HCO3 22 VBG O2 Saturation 88.0 VBG Base Excess 1.0 Anion Gap 17 Estim Creat Clear Calc 84.0 Estimated GFR 50 Random Glucose 129 H Lactic Acid Lactic Acid F/U @ 2Hr Calcium 8.9 Phosphorus 2.3 L Magnesium 1.6 Total Bilirubin 11.8 H AST 151 H ALT 35 Alkaline Phosphatase 158 H Total Protein 6.9 Albumin 3.6 Microbiology Microbiology Results: Microbiology 03/22/23 23:25 Blood Culture - Preliminary Blood - Venous No growth after 24 hours. 03/22/23 23:25 Blood Culture - Preliminary Blood - Venous No growth after 24 hours. Procedures Date of Service Date of Service: 03/24/23 Progress Note: A&P Assessment and plan (1) Ileus: Status: Acute Plan At present, no acute surgical issues. Continue restorative measures. Time Spent With Patient Time: Total time managing care of this patient today ____ minutes. Quality Stroke Does the patient have a stroke diagnosis?: No VTE Prior VTE?: No VTE Risk Level:: Medical - moderate - high VTE Device Contraindication: N/A - Device Ordered VTE Drug Contraindication: Treatment Not Indicated
[2023-03-24 11:18] LABS: Ammonia 66 umol/L (13-55)
[2023-03-24 11:26] LABS: Vancomycin Trough 16.7 mcg/mL (10.0-20.0)
[2023-03-24] MEDS: dexmedeTOMIDidine HCL/NS 400 MCG/100 ML INFUS..BTL 40.25 MCG IVCONT ×3 (11:50→17:13)
[2023-03-24] MEDS: vancomycin HCL 1,000 MG in 0.9 % Sodium Chloride 250 ML 270 MG IV (12:28)
[2023-03-24] MEDS: Lactulose 20 GM/30 ML SOLUTION 40 GM OG-TUBE (20:24)
[2023-03-24] MEDS: propofoL 1,000 MG/100 ML VIAL 20.7 MG IVCONT (21:54)
[2023-03-24] MEDS: dexmedeTOMIDidine HCL/NS 400 MCG/100 ML INFUS..BTL 8.63 MCG IVCONT (23:33)
[2023-03-25] VITALS (42 sets, daily range): BP systolic 99–134; BP diastolic 44–78; PULSE 84–103; RESP 23–94; TEMP 34.7–39.4; O2SAT 90–100; BMI 34.4
[2023-03-25] MEDS: vancomycin HCL 1,000 MG in 0.9 % Sodium Chloride 250 ML 270 MG IV ×2 (00:57→12:30)
[2023-03-25] MEDS: propofoL 1,000 MG/100 ML VIAL 20.7 MG IVCONT ×4 (01:58→16:37)
[2023-03-25] MEDS: Heparin Sodium,Porcine 5,000 UNIT/ML VIAL 5000 UNIT SUBCUT ×3 (03:05→18:00)
[2023-03-25 04:51] LABS: VBG Base Excess -0.6 mmol/L; VBG HCO3 21 mmol/L (22-26); VBG pCO2 28 mmHg; VBG pH 7.49 (7.32-7.43); VBG pO2 71 mmHg
[2023-03-25 04:52] LABS: Venous Blood Gas Refer to POC result
[2023-03-25 05:16] LABS: Hematocrit 26.5 % (42.0-52.0); Hemoglobin 8.7 g/dl (14.0-18.0); Mean Corpuscular HGB Conc 32.8 g/dl (31.0-36.0); Mean Corpuscular Hemoglobin 29.8 pg (27.0-33.0); Mean Corpuscular Volume 90.8 fL (80.0-98.0); Mean Platelet Volume 11.1 fL (9.4-12.4); NRBC Pct Auto 0.4 /100WBC (0.0-0.2); Platelet Count 167 X10*3/uL (160-400); Red Blood Count 2.92 X10*6/uL (4.60-5.80); Red Cell Distribution Width 26.5 % (11.0-16.0); White Blood Count 16.7 X10*3/uL (4.8-10.8)
[2023-03-25 05:31] LABS: Alanine Aminotransferase 32 U/L (0-40); Albumin Level 3.4 g/dL (3.5-5.0); Alkaline Phosphatase 162 U/L (39-117); Anion Gap 18 (12-20); Aspartate Amino Transferase 124 U/L (5-37); Bilirubin Total 13.3 mg/dL (0.0-1.0); Blood Urea Nitrogen 25 mg/dL (9-16); Calcium 8.6 mg/dL (8.4-10.2); Carbon Dioxide 20 mmol/L (22-29); Chloride 101 mmol/L (96-108); Creatinine Clr Calc Pharmacy 94.3; Estimated Glomerular Filt Rate 57; Glucose Random 114 mg/dL (60-115); Magnesium 1.7 mg/dL (1.6-2.6); Phosphorus 2.6 mg/dL (2.7-4.5); Sodium 136 mmol/L (135-145); Total Protein 7.1 g/dL (6.5-8.0)
[2023-03-25] MEDS: Piperacillin Sodium/Tazobactam 4.5 GM in 0.9 % Sodium Chloride 100 ML IV ×4 (05:48→23:49)
[2023-03-25] MEDS: Norepinephrine Bitartrate/D5W 8 MG/250 ML PLAST..BAG 19.41 MG IV (05:51)
[2023-03-25] MEDS: Pantoprazole Sodium 40 MG/10 ML VIAL IVPUSH (05:53)
[2023-03-25 06:13] LABS: Band Neutrophils Percent 16 % (3-5); Basophils Abs Manual 0.3 X10*3/uL (0.0-0.2); Basophils Percent Manual 2 % (0-2); Lymphocytes Percent Manual 12 % (20-40); Metamyelocytes Absolute 0.2 X10*3/uL; Metamyelocytes Percent 1 %; Monocytes Absolute Manual 1.2 X10*3/uL (0.1-1.2); Monocytes Percent Manual 7 % (2-11); Neutrophils Absolute Manual 12.5 X10*3/uL (2.0-8.3); Neutrophils Percent Manual 59 % (45-73); Promyelocytes Absolute 0.5 X10*3/uL; Promyelocytes Percent 3 %; RBC Morphology NOTED; Tear Drop Cells 3+ (>5) /OIF
[2023-03-25 06:14] LABS: Platelet Estimate NORMAL (NORMAL); Platelet Morphology Comment NORMAL
[2023-03-25] MEDS: Potassium Phosphate/NS 15 MMOL/250 ML PLAST..BAG 62.5 MMOL IV (06:29)
--- NOTE | 2023-03-25 07:34 | HE.PHANOTE ---
RE:VANCO Continuing dose of 1000mg q12h with predicted AUC 502 and trough 16.7. Trough level came back on 03/24/23 as 16.7. Will monitor patient for safety and efficacy.
[2023-03-25] MEDS: Chlorhexidine Gluc Oral Rinse 15 ML MOUTHWASH BUCCAL ×3 (08:03→20:27)
[2023-03-25] MEDS: Potassium Chloride/H20 40 MEQ/100 ML PIGGYBACK 100 MEQ IV ×2 (08:33→09:55)
[2023-03-25] MEDS: Albumin Human 25 % 100 ML IV ×3 (08:34→20:18)
--- NOTE | 2023-03-25 08:43 | PM.CCPN ---
Subjective Subjective Date of Service: 03/25/23 Interval History: 37-year-old gentleman with underlying history of alcohol abuse, liver cirrhosis, bipolar disorder MDD admitted on 03/21/2023 with alcohol intoxication. Hospital course significant for abdominal pain for which patient was evaluated by General surgery on 03/22/2023 with no concern for cholecystitis. Further hospital stay complicated by cardiac arrest secondary to pulmonary aspiration of bilious gastric content with returned spontaneous circulation achieved after 3 around of CPR with patient intubated during the CPR and transferred to intensive care unit. In the intensive care unit patient required re-intubation with a large ET tube. OG drained approximately 1 L of bilious fluid. CT abdomen/ pelvis demonstrated dilated bowel loops with no definite transition point. Re-evaluated by General surgery. No events overnight. Critical Care Time (minutes): 45 Physical Exam Vital Signs: Vital Signs: Last Vital Signs Temp 101.7 F H 03/25/23 08:00 Pulse 86 03/25/23 08:17 Resp 28 H 03/25/23 08:00 BP 117/70 03/25/23 08:17 Pulse Ox 99 03/25/23 08:00 O2 Del Method Mechanical Ventil ation 03/25/23 08:00 O2 Flow Rate 50 03/24/23 08:52 FiO2 50 03/25/23 08:03 BMI result Body Mass Index 34.4 Const: General: no acute distress and other (jaundiced, sedated on the vent) Eyes: Sclerae: scleral abnormal (icteric) Neck: Neck: Yes no lymphadenopathy, Yes trachea midline and Yes supple Resp: Auscultation: clear to auscultation bilaterally Cardio: Rate: regular rate Rhythm: regular rhythm Heart sounds: no gallops, no murmurs and no rubs GI: Palpation (GI): Soft to palpation and Other GI palpation findings present ( Nontender) Auscultation: normal bowel sounds Extrem: General: No clubbing, No cyanosis and Yes edema (trace bilateral) Objective Data Labs 03/25/23 04:45 03/25/23 04:45 Labs: Laboratory Results - last 24 hr 03/24/23 03/25/23 11:03 04:45 WBC 16.7 H RBC 2.92 L Hgb 8.7 L Hct 26.5 L MCV 90.8 MCH 29.8 MCHC 32.8 RDW 26.5 H Plt Count 167 MPV 11.1 Immature Gran % (Auto) Cancelled Neut % (Auto) Cancelled Lymph % (Auto) Cancelled [place] % (Auto) Cancelled Eos % (Auto) Cancelled Baso % (Auto) Cancelled Lymph # (Auto) Cancelled [place] # (Auto) Cancelled Eos # (Auto) Cancelled Baso # (Auto) Cancelled Abs Immat Gran (auto) Cancelled Absolute Neuts (auto) Cancelled Absolute Nucleated RBC 0.070 H Nucleated RBC % (auto) 0.4 H Neutrophils % (Manual) 59 Band Neutrophils % 16 H Lymphocytes % (Manual) 12 L Monocytes % (Manual) 7 Basophils % (Manual) 2 Metamyelocytes % 1 Promyelocytes % 3 Abs Neuts (Manual) 12.5 H Lymphocytes # (Manual) 2.0 Monocytes # (Manual) 1.2 Basophils # (Manual) 0.3 H Metamyelocytes # 0.2 Promyelocytes # 0.5 Platelet Estimate NORMAL Plt Morphology Comment NORMAL RBC Morphology NOTED Tear Drop Cells 3+ (>5) VBG pH 7.49 H VBG pCO2 28 VBG pO2 71 VBG HCO3 21 L VBG O2 Saturation 94.0 VBG Base Excess -0.6 Sodium 136 Potassium 3.0 L Chloride 101 Carbon Dioxide 20 L Anion Gap 18 BUN 25 H Creatinine 1.39 Estim Creat Clear Calc 94.3 Estimated GFR 57 Random Glucose 114 Calcium 8.6 Phosphorus 2.6 L Magnesium 1.7 Total Bilirubin 13.3 H AST 124 H ALT 32 Alkaline Phosphatase 162 H Ammonia 66 H Total Protein 7.1 Albumin 3.4 L Vancomycin Trough 16.7 Microbiology Microbiology Results: Microbiology 03/22/23 23:25 Blood - Venous Blood Culture - Preliminary No growth after 48 hours. 03/22/23 23:25 Blood - Venous Blood Culture - Preliminary No growth after 48 hours. Progress Note: A&P Assessment and plan (1) Ileus: Status: Acute (2) Aspiration into airway: Status: Acute (3) Cardiopulmonary arrest with successful resuscitation: Status: Acute (4) Liver cirrhosis: Status: Acute (5) Alcohol withdrawal: Status: Acute (6) Encephalopathy, hepatic: Status: Acute Plan Assessment: 37-year-old gentleman admitted with alcohol intoxication on the background of degree cirrhosis with hospital course complicated by cardiopulmonary arrest secondary to pulmonary aspiration likely secondary to underlying ileus versus SBO. Plan: Neuro: Hepatic encephalopathy, continue lactulose. Cardiac: Cardiac arrest secondary to pulmonary aspiration. Continue to titrate off pressors as tolerated. 2D echo is normal. Pulmonary: Intubated during the CPR on the background of aspiration of gastric content. Continue to titrate off ventilatory support as tolerated. Renal: No acute issues. Endo: No acute issues. GI: Alcoholic liver cirrhosis with hyperbilirubinemia. Ileus versus low-grade SBO. General surgery service care appreciated. ID: aspiration pneumonitis versus pneumonia after aspiration of gastric contents. Empirically covered with broad-spectrum antibiotics. Heme/Onc: No acute issues. Psych: No acute issues. Miscellaneous: No acute issues. Prophylaxis: Heparin, ppi Diet: TPN Critical care time spent: 45 minutes Quality Stroke Does the patient have a stroke diagnosis?: No VTE Prior VTE?: No VTE Risk Level:: Medical - moderate - high VTE Device Contraindication: N/A - Device Ordered VTE Drug Contraindication: Treatment Not Indicated
[2023-03-25] MEDS: Lactulose 20 GM/30 ML SOLUTION 30 GM PO ×3 (09:55→20:27)
--- NOTE | 2023-03-25 10:03 | MHC.CLN ---
PT IS INTUBATED AND SEDATED OGT ON INTERMITTENT SUCTION R/T ILEUS DISCUSSED AT ROUNDS WITH MD THURSTON TO START DISCUSSED WITH PHARMACY RECOMMEND PPN AT 55ML/HR TO PROVIDE [id number] ([id number] WITH SEDATION), 132G DEXTROSE, 56G PROTEIN REPLETE LYTES NEEDED SEE ALSO FULL CLINICAL NUTRITION ASSESSMENT
--- NOTE | 2023-03-25 15:40 | MHC.CM.PN ---
Pt continues on ventilatory support in ICU s/p cardiac arrest - no plans to wean today: pt independent prior to admission: CM to follow for clincal stability
[2023-03-25] MEDS: dexmedeTOMIDidine HCL/NS 400 MCG/100 ML INFUS..BTL 5.75 MCG IVCONT (15:49)
--- NOTE | 2023-03-25 15:49 | MHC.RECOVRN ---
TDougie and GLORIA Reyes met with family in 252 following request for family support. Pt is currently unresponsive and intubated and mother and father at bedside. Brought resources for Ash and discussed community resources available for patient and family. Parents receptive to information and thankful for the ongoing support offered. Will continue to F/U with pt/family and offer support during his stay here.
--- NOTE | 2023-03-25 15:55 | MHC.RECOVRN ---
T/Fatou and GLORIA Reyes met with family in 252 following request for family support.? Pt is currently unresponsive and intubated and mother and father at bedside. Pt. reported to staff in ED that he has been drinking 8-9 drinks daily.? ?Brought resources for [place] Cam and discussed community resources available for patient and family.? Parents receptive to information and thankful for the ongoing support offered.? Will continue to F/U with pt/family and offer support during his stay here.
[2023-03-25] MEDS: Midazolam HCl/PF 2 MG/2 ML VIAL IVPUSH ×2 (18:09→21:18)
[2023-03-25 18:42] LABS: ABG Base Excess -1.6 mmol/L; ABG HCO3 23 mmol/L (22-26); ABG pCO2 38 mmHg (32-45); ABG pH 7.38 (7.35-7.45); ABG pO2 68 mmHg (83-108)
[2023-03-25 19:49] LABS: Anion Gap 14 (12-20); Blood Urea Nitrogen 22 mg/dL (9-16); Calcium 8.6 mg/dL (8.4-10.2); Carbon Dioxide 23 mmol/L (22-29); Chloride 104 mmol/L (96-108); Creatinine Clr Calc Pharmacy 106.6; Estimated Glomerular Filt Rate > 60; Glucose Random 130 mg/dL (60-115); Potassium 3.4 mmol/L (3.3-5.1); Sodium 138 mmol/L (135-145)
[2023-03-25] MEDS: propofoL 1,000 MG/100 ML VIAL 27.6 MG IVCONT ×2 (20:05→23:09)
[2023-03-25] MEDS: Potassium Chloride/H20 10 MEQ/100 ML PIGGYBACK 100 MEQ IV ×4 (20:23→23:46)
[2023-03-25] MEDS: Furosemide 40 MG/4 ML VIAL IVPUSH (21:45)
[2023-03-25] MEDS: Parenteral Nutrition 1,320 ML 55 ML IV (21:46)
[2023-03-26] VITALS (32 sets, daily range): BP systolic 104–154; BP diastolic 49–97; PULSE 75–107; RESP 20–40; TEMP 34.9–38.7; O2SAT 93–100; BMI 34.7
[2023-03-26] MEDS: vancomycin HCL 1,000 MG in 0.9 % Sodium Chloride 250 ML 270 MG IV ×2 (00:56→12:13)
[2023-03-26] MEDS: Midazolam HCl/PF 2 MG/2 ML VIAL IVPUSH ×2 (01:37→05:24)
[2023-03-26] MEDS: propofoL 1,000 MG/100 ML VIAL 27.6 MG IVCONT ×8 (01:51→23:52)
[2023-03-26] MEDS: Albumin Human 25 % 100 ML IV (01:54)
[2023-03-26] MEDS: Heparin Sodium,Porcine 5,000 UNIT/ML VIAL 5000 UNIT SUBCUT ×3 (01:57→18:04)
[2023-03-26 05:32] LABS: VBG Base Excess -0.2 mmol/L; VBG HCO3 22 mmol/L (22-26); VBG pCO2 30 mmHg; VBG pH 7.47 (7.32-7.43); VBG pO2 29 mmHg
[2023-03-26 05:33] LABS: Venous Blood Gas Refer to POC result
[2023-03-26 05:38] LABS: Ammonia 54 umol/L (13-55)
[2023-03-26 05:47] LABS: Alanine Aminotransferase 24 U/L (0-40); Albumin Level 3.9 g/dL (3.5-5.0); Alkaline Phosphatase 120 U/L (39-117); Anion Gap 14 (12-20); Aspartate Amino Transferase 106 U/L (5-37); Bilirubin Total 13.1 mg/dL (0.0-1.0); Blood Urea Nitrogen 22 mg/dL (9-16); Calcium 8.7 mg/dL (8.4-10.2); Carbon Dioxide 22 mmol/L (22-29); Chloride 105 mmol/L (96-108); Creatinine Clr Calc Pharmacy 90.4; Estimated Glomerular Filt Rate 54; Glucose Random 115 mg/dL (60-115); Hematocrit 24.7 % (42.0-52.0); Hemoglobin 7.7 g/dl (14.0-18.0); Magnesium 2.2 mg/dL (1.6-2.6); Mean Corpuscular HGB Conc 31.2 g/dl (31.0-36.0); Mean Corpuscular Hemoglobin 29.1 pg (27.0-33.0); Mean Corpuscular Volume 93.2 fL (80.0-98.0); Mean Platelet Volume 11.4 fL (9.4-12.4); Phosphorus 1.9 mg/dL (2.7-4.5); Platelet Count 141 X10*3/uL (160-400); Potassium 3.1 mmol/L (3.3-5.1); Red Blood Count 2.65 X10*6/uL (4.60-5.80); Red Cell Distribution Width 27.1 % (11.0-16.0); Sodium 138 mmol/L (135-145); Total Protein 7.1 g/dL (6.5-8.0); White Blood Count 11.3 X10*3/uL (4.8-10.8)
[2023-03-26 06:14] LABS: Band Neutrophils Percent 16 % (3-5); Eosinophils Absolute Manual 0.1 X10*3/uL (0.0-0.4); Eosinophils Percent Manual 1 % (0-4); Lymphocytes Absolute Manual 2.1 X10*3/uL (1.2-4.9); Lymphocytes Percent Manual 19 % (20-40); Metamyelocytes Absolute 0.2 X10*3/uL; Metamyelocytes Percent 2 %; Monocytes Absolute Manual 0.7 X10*3/uL (0.1-1.2); Monocytes Percent Manual 6 % (2-11); Neutrophils Absolute Manual 8.1 X10*3/uL (2.0-8.3); Neutrophils Percent Manual 56 % (45-73); RBC Morphology NOTED
[2023-03-26 06:15] LABS: Hypochromasia 1+ (5-14) /OIF; Macrocytosis 1+ (5-14) /OIF; Polychromasia 1+ (0-2) /OIF; Target Cells 1+ (5-14) /OIF
[2023-03-26 06:17] LABS: Burr Cells 1+ (0-2) /OIF; Dohle Bodies PRESENT; Platelet Estimate SLIGHTLY DECREASED (NORMAL); Platelet Morphology Comment NORMAL; Tear Drop Cells 1+ (0-2) /OIF; Toxic Granulation PRESENT
[2023-03-26] MEDS: Piperacillin Sodium/Tazobactam 4.5 GM in 0.9 % Sodium Chloride 100 ML IV ×4 (06:33→23:33)
[2023-03-26] MEDS: Potassium Phosphate/NS 15 MMOL/250 ML PLAST..BAG 62.5 MMOL IV ×3 (07:07→20:25)
[2023-03-26] MEDS: Lactulose 20 GM/30 ML SOLUTION 30 GM PO ×2 (08:27→20:35)
[2023-03-26] MEDS: Chlorhexidine Gluc Oral Rinse 15 ML MOUTHWASH BUCCAL ×3 (08:27→20:35)
[2023-03-26] MEDS: Potassium Chloride/H20 10 MEQ/100 ML PIGGYBACK 100 MEQ IV ×4 (08:28→11:41)
--- NOTE | 2023-03-26 08:36 | P.PNCC_ITS ---
Subjective Subjective Date of Service: 03/26/23 Interval History: 37-year-old gentleman with underlying history of alcohol abuse, liver cirrhosis, bipolar disorder MDD admitted on 03/21/2023 with alcohol intoxication. Hospital course significant for abdominal pain for which patient was evaluated by General surgery on 03/22/2023 with no concern for cholecystitis. Further hospital stay complicated by cardiac arrest secondary to pulmonary aspiration of bilious gastric content with returned spontaneous circulation achieved after 3 around of CPR with patient intubated during the CPR and transferred to intensive care unit. In the intensive care unit patient required re-intubation with a large ET tube. OG drained approximately 1 L of bilious fluid. CT abdomen/ pelvis demonstrated dilated bowel loops with no definite transition point. Re- evaluated by General surgery with p.o. contrast noted in colon, thus no intervention warranted at that time. No events overnight. Critical Care Time (minutes): 60 Physical Exam 2 Vital Signs: Vital Signs: Last Vital Signs Temp 101.3 F H 03/26/23 08:00 Pulse 94 03/26/23 08:00 Resp 20 03/26/23 08:00 BP 113/74 03/26/23 08:00 Pulse Ox 96 03/26/23 08:00 O2 Del Method Mechanical Ventil ation 03/26/23 08:00 O2 Flow Rate 50 03/24/23 08:52 FiO2 40 03/26/23 08:00 BMI result Body Mass Index 34.7 Const: General: no acute distress and other ( Jaundiced, sedated on event, no arousal with sedation vacation) Eyes: Sclerae: scleral abnormal (icteric) Neck: Neck: Yes no lymphadenopathy, Yes trachea midline and Yes supple Resp: Auscultation: clear to auscultation bilaterally Cardio: Rate: regular rate Rhythm: regular rhythm Heart sounds: no gallops, no murmurs and no rubs GI: Inspection: Yes distended Palpation (GI): Firmness to palpation present (GI) Auscultation: Hypoactive bowel sounds present Extrem: General: No clubbing, No cyanosis and Yes edema ( trace bilateral) Objective Data Labs 03/26/23 05:25 03/26/23 05:25 Labs: Laboratory Results - last 24 hr 03/24/23 03/25/23 03/25/23 05:37 18:37 19:18 WBC RBC Hgb Hct MCV MCH MCHC RDW Plt Count MPV Immature Gran % (Auto) Neut % (Auto) Lymph % (Auto) [place] % (Auto) Eos % (Auto) Baso % (Auto) Lymph # (Auto) [place] # (Auto) Eos # (Auto) Baso # (Auto) Abs Immat Gran (auto) Absolute Neuts (auto) Absolute Nucleated RBC Nucleated RBC % (auto) Neutrophils % (Manual) Band Neutrophils % Lymphocytes % (Manual) Monocytes % (Manual) Eosinophils % (Manual) Metamyelocytes % Abs Neuts (Manual) Lymphocytes # (Manual) Monocytes # (Manual) Eosinophils # (Manual) Metamyelocytes # Toxic Granulation Dohle Bodies Platelet Estimate Plt Morphology Comment RBC Morphology Polychromasia Hypochromasia Macrocytosis Target Cells Tear Drop Cells [place] Cells Smear Path Review O2 Saturation 90.0 ABG pH at Pt Temp 7.38 ABG pCO2 at Pt Temp 38 ABG pO2 at Pt Temp 68 L ABG HCO3 23 ABG Base Excess (Actual) -1.6 VBG pH VBG pCO2 VBG pO2 VBG HCO3 VBG O2 Saturation VBG Base Excess Sodium 138 Potassium 3.4 Chloride 104 Carbon Dioxide 23 Anion Gap 14 BUN 22 H Creatinine 1.23 Estim Creat Clear Calc 106.6 Estimated GFR > 60 Random Glucose 130 H Lactic Acid 1.0 Calcium 8.6 Phosphorus Magnesium Total Bilirubin AST ALT Alkaline Phosphatase Ammonia Total Protein Albumin 03/26/23 03/26/23 03/26/23 05:22 05:25 05:26 WBC 11.3 H RBC 2.65 L Hgb 7.7 L Hct 24.7 L MCV 93.2 MCH 29.1 MCHC 31.2 RDW 27.1 H Plt Count 141 L MPV 11.4 Immature Gran % (Auto) Cancelled Neut % (Auto) Cancelled Lymph % (Auto) Cancelled [place] % (Auto) Cancelled Eos % (Auto) Cancelled Baso % (Auto) Cancelled Lymph # (Auto) Cancelled [place] # (Auto) Cancelled Eos # (Auto) Cancelled Baso # (Auto) Cancelled Abs Immat Gran (auto) Cancelled Absolute Neuts (auto) Cancelled Absolute Nucleated RBC 0.000 Nucleated RBC % (auto) 0.0 Neutrophils % (Manual) 56 Band Neutrophils % 16 H Lymphocytes % (Manual) 19 L Monocytes % (Manual) 6 Eosinophils % (Manual) 1 Metamyelocytes % 2 Abs Neuts (Manual) 8.1 Lymphocytes # (Manual) 2.1 Monocytes # (Manual) 0.7 Eosinophils # (Manual) 0.1 Metamyelocytes # 0.2 Toxic Granulation PRESENT Dohle Bodies PRESENT Platelet Estimate SLIGHTLY DECREASED Plt Morphology Comment NORMAL RBC Morphology NOTED Polychromasia 1+ (0-2) Hypochromasia 1+ (5-14) Macrocytosis 1+ (5-14) Target Cells 1+ (5-14) Tear Drop Cells 1+ (0-2) [place] Cells 1+ (0-2) Smear Path Review O2 Saturation ABG pH at Pt Temp ABG pCO2 at Pt Temp ABG pO2 at Pt Temp ABG HCO3 ABG Base Excess (Actual) VBG pH 7.47 H VBG pCO2 30 VBG pO2 29 VBG HCO3 22 VBG O2 Saturation 41.0 VBG Base Excess -0.2 Sodium 138 Potassium 3.1 L Chloride 105 Carbon Dioxide 22 Anion Gap 14 BUN 22 H Creatinine 1.45 H Estim Creat Clear Calc 90.4 Estimated GFR 54 Random Glucose 115 Lactic Acid Calcium 8.7 Phosphorus 1.9 L Magnesium 2.2 Total Bilirubin 13.1 H AST 106 H ALT 24 Alkaline Phosphatase 120 H Ammonia 54 Total Protein 7.1 Albumin 3.9 Microbiology Microbiology Results: Microbiology 03/22/23 23:25 Blood - Venous Blood Culture - Preliminary No growth after 48 hours. 03/22/23 23:25 Blood - Venous Blood Culture - Preliminary No growth after 48 hours. Progress Note: A&P Assessment and plan (1) Ileus: Status: Acute (2) Aspiration into airway: Status: Acute (3) Cardiopulmonary arrest with successful resuscitation: Status: Acute (4) Liver cirrhosis: Status: Acute (5) Alcohol withdrawal: Status: Acute (6) Encephalopathy, hepatic: Status: Acute (7) Hyperbilirubinemia: Status: Acute Plan Assessment: 37-year-old gentleman admitted with alcohol intoxication on the background of degree cirrhosis with hospital course complicated by cardiopulmonary arrest secondary to pulmonary aspiration likely secondary to underlying ileus versus SBO. Plan: Neuro: Hepatic encephalopathy, continue lactulose. Cardiac: Cardiac arrest secondary to pulmonary aspiration. Continue to titrate off pressors as tolerated. 2D echo is normal. Pulmonary: Intubated during the CPR on the background of aspiration of gastric content. Continue to titrate off ventilatory support as tolerated. Renal: No acute issues. Endo: No acute issues. GI: Alcoholic liver cirrhosis with hyperbilirubinemia. Ileus versus low- grade SBO. General surgery service care appreciated. Liver failure, gastroenterology evaluation requested. ID: aspiration pneumonitis versus pneumonia after aspiration of gastric contents. Empirically covered with broad-spectrum antibiotics. Heme/Onc: No acute issues. Psych: No acute issues. Miscellaneous: No acute issues. Prophylaxis: Heparin, ppi Diet: TPN Critical care time spent: 60 minutes Quality Stroke Does the patient have a stroke diagnosis?: No VTE Prior VTE?: No VTE Risk Level:: Medical - moderate - high VTE Device Contraindication: N/A - Device Ordered VTE Drug Contraindication: Treatment Not Indicated
[2023-03-26] MEDS: dexmedeTOMIDidine HCL/NS 400 MCG/100 ML INFUS..BTL 5.75 MCG IVCONT ×2 (08:52→23:52)
--- NOTE | 2023-03-26 09:17 | P.CDIM_ITS ---
PROVIDER RESPONSE TEXT: To clarify, the appropriate diagnosis supported by the clinical indicators: Other (explain): No clinical evidence of sepsis underlying alcohol withdrawal with hepatic and post c ardiac arrest encephalopathy. QUERY TEXT: PHYSICIAN'S DOCUMENTATION REQUEST Date of Query: 03/26/2023 09:02 AM EST Patient Name: Nelson López Admit Date: 03/21/2023 Dear Taj Hernandes, A review of the medical record indicates additional documentation may be needed. Please review below and update the documentation accordingly. Clinical Indicators: T 103.3, P 92, R 24, BP 116/74 Per Critical Care Progress Note 03/23/23: Cardiac arrest secondary to pulmonary aspiration aspiration pneumonitis versus pneumonia after aspiration of gastric contents. Empirically covered wit h broad-spectrum antibiotics. Please clarify which, if any, of the following is the most likely etiology of the above symptoms and treatment rendered: Sepsis Severe Sepsis Septic Shock Localized infection only, without systemic illness Indicate the site/source, such as UTI, pneumonia, etc. Other (explain) Clinically unable to determine (explain) Thank you, Lurdes Graf RN Use of terms such as suspected, likely, concern for, or probable (associated with a specific diagnosi s that is being evaluated, monitored, or treated as if it exists) are acceptable and can be coded in the inpatient se tting, when documented at the time of discharge. Please use your independent medical judgment in providing your response. THIS QUERY IS PART OF THE PERMANENT MEDICAL RECORD
--- NOTE | 2023-03-26 09:19 | PM.GIPN ---
Subjective Subjective Date of Service: 03/26/23 Interval History: Patient initially seen by Dr Guerrier this admission, 03/22/23 but since then he had cardiac arrest from vomiting and aspiration 03/23/23 He had imaging suggestive of ileus. Seen by surgery and PO contrast reached cecum so no mechanical cause identified for SBO. He remains on vent and getting replenished on lytes. Critical Care Time (minutes): 0 Physical Exam Vital Signs: Vital Signs: Last Vital Signs Temp 101.3 F H 03/26/23 08:57 Pulse 96 03/26/23 08:57 Resp 20 03/26/23 08:57 BP 113/69 03/26/23 08:57 Pulse Ox 96 03/26/23 08:57 O2 Del Method Mechanical Ventil ation 03/26/23 08:57 O2 Flow Rate 50 03/24/23 08:52 FiO2 40 03/26/23 08:57 BMI result Body Mass Index 34.7 EXAM: GENERAL: The patient is jaundiced, ventilated and sedated VITAL SIGNS:see workflow HEENT: icteric sclerae, PERRLA, EOMI. Oropharynx clear. Moist mucous membranes. Conjunctivae appear well perfused. No thyroid mass. CHEST: Chest wall is nontender. HEART: Regular rate and rhythm without murmurs. LUNGS: Clear to auscultation bilaterally. ABDOMEN: tense, no bowel sounds, nontender, no organomegaly.no flank tenderness SKIN: No rash, no excessive bruising, petechiae, or purpura. NEUROLOGIC: sedated, on vent Objective Data Labs 03/26/23 05:25 03/26/23 19:39 Labs: Laboratory Results - last 24 hr 03/24/23 03/25/23 03/25/23 05:37 18:37 19:18 WBC RBC Hgb Hct MCV MCH MCHC RDW Plt Count MPV Immature Gran % (Auto) Neut % (Auto) Lymph % (Auto) [place] % (Auto) Eos % (Auto) Baso % (Auto) Lymph # (Auto) [place] # (Auto) Eos # (Auto) Baso # (Auto) Abs Immat Gran (auto) Absolute Neuts (auto) Absolute Nucleated RBC Nucleated RBC % (auto) Neutrophils % (Manual) Band Neutrophils % Lymphocytes % (Manual) Monocytes % (Manual) Eosinophils % (Manual) Metamyelocytes % Abs Neuts (Manual) Lymphocytes # (Manual) Monocytes # (Manual) Eosinophils # (Manual) Metamyelocytes # Toxic Granulation Dohle Bodies Platelet Estimate Plt Morphology Comment RBC Morphology Polychromasia Hypochromasia Macrocytosis Target Cells Tear Drop Cells [place] Cells Smear Path Review O2 Saturation 90.0 ABG pH at Pt Temp 7.38 ABG pCO2 at Pt Temp 38 ABG pO2 at Pt Temp 68 L ABG HCO3 23 ABG Base Excess (Actual) -1.6 VBG pH VBG pCO2 VBG pO2 VBG HCO3 VBG O2 Saturation VBG Base Excess Sodium 138 Potassium 3.4 Chloride 104 Carbon Dioxide 23 Anion Gap 14 BUN 22 H Creatinine 1.23 Estim Creat Clear Calc 106.6 Estimated GFR > 60 Random Glucose 130 H Lactic Acid 1.0 Calcium 8.6 Phosphorus Magnesium Total Bilirubin AST ALT Alkaline Phosphatase Ammonia Total Protein Albumin 03/26/23 03/26/23 03/26/23 05:22 05:25 05:26 WBC 11.3 H RBC 2.65 L Hgb 7.7 L Hct 24.7 L MCV 93.2 MCH 29.1 MCHC 31.2 RDW 27.1 H Plt Count 141 L MPV 11.4 Immature Gran % (Auto) Cancelled Neut % (Auto) Cancelled Lymph % (Auto) Cancelled [place] % (Auto) Cancelled Eos % (Auto) Cancelled Baso % (Auto) Cancelled Lymph # (Auto) Cancelled [place] # (Auto) Cancelled Eos # (Auto) Cancelled Baso # (Auto) Cancelled Abs Immat Gran (auto) Cancelled Absolute Neuts (auto) Cancelled Absolute Nucleated RBC 0.000 Nucleated RBC % (auto) 0.0 Neutrophils % (Manual) 56 Band Neutrophils % 16 H Lymphocytes % (Manual) 19 L Monocytes % (Manual) 6 Eosinophils % (Manual) 1 Metamyelocytes % 2 Abs Neuts (Manual) 8.1 Lymphocytes # (Manual) 2.1 Monocytes # (Manual) 0.7 Eosinophils # (Manual) 0.1 Metamyelocytes # 0.2 Toxic Granulation PRESENT Dohle Bodies PRESENT Platelet Estimate SLIGHTLY DECREASED Plt Morphology Comment NORMAL RBC Morphology NOTED Polychromasia 1+ (0-2) Hypochromasia 1+ (5-14) Macrocytosis 1+ (5-14) Target Cells 1+ (5-14) Tear Drop Cells 1+ (0-2) [place] Cells 1+ (0-2) Smear Path Review O2 Saturation ABG pH at Pt Temp ABG pCO2 at Pt Temp ABG pO2 at Pt Temp ABG HCO3 ABG Base Excess (Actual) VBG pH 7.47 H VBG pCO2 30 VBG pO2 29 VBG HCO3 22 VBG O2 Saturation 41.0 VBG Base Excess -0.2 Sodium 138 Potassium 3.1 L Chloride 105 Carbon Dioxide 22 Anion Gap 14 BUN 22 H Creatinine 1.45 H Estim Creat Clear Calc 90.4 Estimated GFR 54 Random Glucose 115 Lactic Acid Calcium 8.7 Phosphorus 1.9 L Magnesium 2.2 Total Bilirubin 13.1 H AST 106 H ALT 24 Alkaline Phosphatase 120 H Ammonia 54 Total Protein 7.[address] scan - abdomen: Attestation: I personally reviewed and interpreted this imaging study as follows: (air fluid levels with dilated colon, cecal diameter 9 cm, cirrhotic liver, pleural effusions ) Microbiology Microbiology Results: Microbiology 03/22/23 23:25 Blood - Venous Blood Culture - Preliminary No growth after 48 hours. 03/22/23 23:25 Blood - Venous Blood Culture - Preliminary No growth after 48 hours. Procedures Date of Service Date of Service: 03/26/23 Progress Note: A&P Assessment and plan (1) Hyperbilirubinemia: Status: Acute (2) Ileus: Status: Acute Plan 1. ileus, secondary to critical illness, possible opiate related or due to lyte deficiency, zieve syndrome 2. hyperbilirubinemia possibly 2/2 cholestasis, or cardiac arrest, alcoholic cirrhosis vs zieve syndrome, drug reaction 3. Anemia, 2/2 cirrhosis, portal hypertension and hypersplenism, no overt GI bleeding, could also be due to hemolysis from zieves Recommendations: 1/ Cont with IV fluids, and suction, 2/ optimize lytes 3/ if ileus continues then can consider neostigimine 2 mg once wih slow IV injection over 5 mins, have to watch for bronchospasm and bradycardia -risk can be reduced by co admin with glycopyrrolate --neostigimine can be repeated after 24 hrs--if failure to respond then may need cecostomy tube, can consider daily kub to monitor the cecal diameter 4/ chekc hemolysis labs incl LDH, haptoglobin, jesi test, blood film -- 5/ cont to trend bili, should trend down next few days if due to ischemia, 6/ B vitamins and x 3 doses Vit K 10 mg over 3 days Time Spent With Patient Time: Total time managing care of this patient today ____ minutes. Quality Stroke Does the patient have a stroke diagnosis?: No VTE Prior VTE?: No VTE Risk Level:: Medical - moderate - high VTE Device Contraindication: N/A - Device Ordered VTE Drug Contraindication: Treatment Not Indicated
[2023-03-26] MEDS: Lactulose 320 GM/480 ML SOLUTION 200 GM PR (09:33)
--- NOTE | 2023-03-26 09:54 | MHC.CLN ---
F/U PT REMAINS INTUBATED AND SEDATED OGT ON INTERMITTENT SUCTION R/T ILEUS DISCUSSED AT ROUNDS WITH MD THURSTON TO CONTINUE: DISCUSSED WITH PHARMACY PT RECEIVED PPN AT 55ML/HR PROVIDED 673KCALS (1219KCALS WITH SEDATION), 132G DEXTROSE, 56G PROTEIN RECOMMEND INCREASING PPN TO 75ML/HR TO PROVIDE 918KCALS (1647KCALS WITH SEDATION), 180G DEXTROSE, 77G PROTEIN (.95G/KG) REPLETE LYTES NEEDED
--- NOTE | 2023-03-26 13:56 | MHC.CM.PN ---
Pt continues in ICU on ventilatory support: No plans to start vent weaning today: Family given information by Recovery team on outpt ETOH management. CM to follow for finalization of d/c planning needs
[2023-03-26] MEDS: Barium Sulfate Oral (Mocha) 450 ML ORAL.SUSP 900 ML PO (14:59)
--- NOTE | 2023-03-26 15:58 | PM.CCN ---
Critical Care Event Note Summary Date of Service: 03/26/23 Code activated: No Narrative: CT abdomen/ pelvis with contrast from today reviewed with reading radiologist - no concern for mechanical obstruction, appears to have colonic and small bowel pseudo-obstruction/ileus. Will proceed with neostigmine as per GI recommendations. Critical Care Time (minutes): 0
[2023-03-26 20:07] LABS: Anion Gap 15 (12-20); Blood Urea Nitrogen 19 mg/dL (9-16); Calcium 8.8 mg/dL (8.4-10.2); Carbon Dioxide 22 mmol/L (22-29); Chloride 108 mmol/L (96-108); Creatinine Clr Calc Pharmacy 118.6; Estimated Glomerular Filt Rate > 60; Glucose Random 121 mg/dL (60-115); Magnesium 2.2 mg/dL (1.6-2.6); Potassium 3.7 mmol/L (3.3-5.1); Sodium 141 mmol/L (135-145)
[2023-03-26] MEDS: Parenteral Nutrition 1,800 ML 75 ML IV (20:31)
[2023-03-27] VITALS (31 sets, daily range): BP systolic 114–175; BP diastolic 63–108; PULSE 91–113; RESP 22–37; TEMP 34.8–38.4; O2SAT 91–96; BMI 34.7
[2023-03-27] MEDS: vancomycin HCL 1,000 MG in 0.9 % Sodium Chloride 250 ML 200 MG IV (00:35)
[2023-03-27] MEDS: Midazolam HCl/PF 2 MG/2 ML VIAL IVPUSH ×2 (00:44→21:39)
[2023-03-27] MEDS: propofoL 1,000 MG/100 ML VIAL 27.6 MG IVCONT ×2 (03:10→06:03)
[2023-03-27] MEDS: Heparin Sodium,Porcine 5,000 UNIT/ML VIAL 5000 UNIT SUBCUT ×3 (03:20→18:00)
[2023-03-27 04:31] LABS: VBG Base Excess 1.3 mmol/L; VBG HCO3 22 mmol/L (22-26); VBG pCO2 23 mmHg; VBG pH 7.58 (7.32-7.43); VBG pO2 66 mmHg
[2023-03-27 04:40] LABS: Venous Blood Gas Refer to POC result
[2023-03-27 05:04] LABS: Ammonia 66 umol/L (13-55); Hematocrit 25.4 % (42.0-52.0); Hemoglobin 8.1 g/dl (14.0-18.0); Mean Corpuscular HGB Conc 31.9 g/dl (31.0-36.0); Mean Corpuscular Hemoglobin 29.2 pg (27.0-33.0); Mean Corpuscular Volume 91.7 fL (80.0-98.0); Mean Platelet Volume 11.9 fL (9.4-12.4); NRBC Pct Auto 0.2 /100WBC (0.0-0.2); PLT CLUMP 1; Red Blood Count 2.77 X10*6/uL (4.60-5.80); Red Cell Distribution Width 27.9 % (11.0-16.0)
[2023-03-27 05:07] LABS: Platelet Count 146 X10*3/uL (160-400); White Blood Count 14.2 X10*3/uL (4.8-10.8)
[2023-03-27 05:14] LABS: Alanine Aminotransferase 20 U/L (0-40); Albumin Level 3.5 g/dL (3.5-5.0); Alkaline Phosphatase 111 U/L (39-117); Anion Gap 13 (12-20); Aspartate Amino Transferase 102 U/L (5-37); Bilirubin Total 12.3 mg/dL (0.0-1.0); Blood Urea Nitrogen 15 mg/dL (9-16); Calcium 8.7 mg/dL (8.4-10.2); Carbon Dioxide 21 mmol/L (22-29); Chloride 110 mmol/L (96-108); Creatinine Clr Calc Pharmacy 147.9; Estimated Glomerular Filt Rate > 60; Glucose Random 124 mg/dL (60-115); Magnesium 2.4 mg/dL (1.6-2.6); Phosphorus 1.6 mg/dL (2.7-4.5); Sodium 141 mmol/L (135-145); Total Protein 6.9 g/dL (6.5-8.0)
[2023-03-27 05:32] LABS: Band Neutrophils Percent 17 % (3-5); Basophils Abs Manual 0.3 X10*3/uL (0.0-0.2); Basophils Percent Manual 2 % (0-2); Eosinophils Absolute Manual 0.1 X10*3/uL (0.0-0.4); Eosinophils Percent Manual 1 % (0-4); Lymphocytes Absolute Manual 1.1 X10*3/uL (1.2-4.9); Lymphocytes Percent Manual 8 % (20-40); Myelocytes Absolute 0.1 X10*/uL; Myelocytes Percent 1 %; Neutrophils Absolute Manual 11.1 X10*3/uL (2.0-8.3); Neutrophils Percent Manual 61 % (45-73); Nucleated Red Blood Cells 1 /100WBC (0-0); Promyelocytes Absolute 0.1 X10*3/uL; Promyelocytes Percent 1 %
[2023-03-27 05:34] LABS: Metamyelocytes Absolute 0.4 X10*3/uL; Metamyelocytes Percent 3 %; Monocytes Absolute Manual 0.9 X10*3/uL (0.1-1.2); Monocytes Percent Manual 6 % (2-11); Ovalocytes 1+ (5-14) /OIF; RBC Morphology NOTED
[2023-03-27 05:35] LABS: Hypochromasia 1+ (5-14) /OIF
[2023-03-27 05:36] LABS: Polychromasia 1+ (0-2) /OIF; Target Cells 1+ (5-14) /OIF
[2023-03-27 05:37] LABS: Platelet Estimate SLIGHTLY DECREASED (NORMAL); Toxic Granulation PRESENT; Toxic Vacuolation PRESENT
[2023-03-27 05:38] LABS: Large Platelet PRESENT; Platelet Morphology Comment NOTED; Schistocytes 1+ (0-2) /OIF
[2023-03-27] MEDS: Potassium Phosphate/NS 15 MMOL/250 ML PLAST..BAG 62.5 MMOL IV ×2 (05:58→10:11)
[2023-03-27] MEDS: Piperacillin Sodium/Tazobactam 4.5 GM in 0.9 % Sodium Chloride 100 ML IV ×4 (06:04→23:32)
[2023-03-27] MEDS: Chlorhexidine Gluc Oral Rinse 15 ML MOUTHWASH BUCCAL ×3 (08:35→21:27)
[2023-03-27] MEDS: Lactulose 20 GM/30 ML SOLUTION 30 GM PO ×3 (08:35→21:27)
--- NOTE | 2023-03-27 09:55 | MHC.CLN ---
F/U PT REMAINS INTUBATED AND SEDATED DISCUSSED AT ROUNDS WITH MD THURSTON TO CONTINUE: DISCUSSED WITH PHARMACY PT RECEIVED PPN AT 75ML/HR PROVIDED 918KCALS (1647KCALS WITH SEDATION), 180G DEXTROSE, 77G PROTEIN (.95G/KG) RECOMMEND INCREASING PPN TO 95ML/HR TO PROVIDE 1163KCALS, 228G DEXTROSE, 97G PROTEIN REPLETE LYTES NEEDED
--- NOTE | 2023-03-27 10:13 | P.PNCC_ITS ---
Subjective Subjective Date of Service: 03/27/23 Interval History: 37-year-old gentleman with underlying history of alcohol abuse, liver cirrhosis, bipolar disorder MDD admitted on 03/21/2023 with alcohol intoxication. Hospital course significant for abdominal pain for which patient was evaluated by General surgery on 03/22/2023 with no concern for cholecystitis. Further hospital stay complicated by cardiac arrest secondary to pulmonary aspiration of bilious gastric content with returned spontaneous circulation achieved after 3 around of CPR with patient intubated during the CPR and transferred to intensive care unit. In the intensive care unit patient required re-intubation with a large ET tube. OG drained approximately 1 L of bilious fluid. CT abdomen/ pelvis demonstrated dilated bowel loops with no definite transition point. Re- evaluated by General surgery with p.o. contrast noted in colon, thus no intervention warranted at that time. No events overnight. Critical Care Time (minutes): 60 Physical Exam 2 Vital Signs: Vital Signs: Last Vital Signs Temp 97.2 F 03/27/23 09:00 Pulse 102 H 03/27/23 09:00 Resp 22 H 03/27/23 09:00 BP 151/97 H 03/27/23 09:00 Pulse Ox 95 03/27/23 09:00 O2 Del Method Mechanical Ventil ation 03/27/23 09:00 O2 Flow Rate 50 03/24/23 08:52 FiO2 30 03/27/23 09:00 BMI result Body Mass Index 34.7 Const: General: no acute distress and other (jaundiced) Eyes: Sclerae: scleral abnormal (icteric) Pupils: Pupil size comments (4 reactive bilateral) Neck: Neck: Yes no lymphadenopathy, Yes trachea midline and Yes supple Resp: Auscultation: clear to auscultation bilaterally Cardio: Rate: tachycardic Rhythm: regular rhythm Heart sounds: no gallops, no murmurs and no rubs GI: Inspection: Yes distended Palpation (GI): Soft to palpation A uscultation: normal bowel sounds and Hypoactive bowel sounds present Extrem: General: No clubbing, No cyanosis and Yes edema (1+ bilateral) Objective Data Labs 03/27/23 04:17 03/27/23 04:17 Labs: Laboratory Results - last 24 hr 03/26/23 03/27/23 03/27/23 19:39 04:17 04:24 WBC 14.2 H RBC 2.77 L Hgb 8.1 L Hct 25.4 L MCV 91.7 MCH 29.2 MCHC 31.9 RDW 27.9 H Plt Count 146 L MPV 11.9 Immature Gran % (Auto) Cancelled Neut % (Auto) Cancelled Lymph % (Auto) Cancelled [place] % (Auto) Cancelled Eos % (Auto) Cancelled Baso % (Auto) Cancelled Lymph # (Auto) Cancelled [place] # (Auto) Cancelled Eos # (Auto) Cancelled Baso # (Auto) Cancelled Abs Immat Gran (auto) Cancelled Absolute Neuts (auto) Cancelled Absolute Nucleated RBC 0.030 H Nucleated RBC % (auto) 0.2 Neutrophils % (Manual) 61 Band Neutrophils % 17 H Lymphocytes % (Manual) 8 L Monocytes % (Manual) 6 Eosinophils % (Manual) 1 Basophils % (Manual) 2 Metamyelocytes % 3 Myelocytes % 1 Promyelocytes % 1 Abs Neuts (Manual) 11.1 H Lymphocytes # (Manual) 1.1 L Monocytes # (Manual) 0.9 Eosinophils # (Manual) 0.1 Basophils # (Manual) 0.3 H Metamyelocytes # 0.4 Myelocytes # 0.1 Promyelocytes # 0.1 Nucleated RBCs 1 H Toxic Granulation PRESENT Toxic Vacuolation PRESENT Platelet Estimate SLIGHTLY DECREASED Large Platelets PRESENT Plt Morphology Comment NOTED RBC Morphology NOTED Polychromasia 1+ (0-2) Hypochromasia 1+ (5-14) Target Cells 1+ (5-14) Ovalocytes 1+ (5-14) Schistocytes 1+ (0-2) VBG pH 7.58 H VBG pCO2 23 VBG pO2 66 VBG HCO3 22 VBG O2 Saturation 95.0 VBG Base Excess 1.3 Sodium 141 141 Potassium 3.7 3.0 L Chloride 108 110 H Carbon Dioxide 22 21 L Anion Gap 15 13 BUN 19 H 15 Creatinine 1.11 0.89 Estim Creat Clear Calc 118.6 147.9 Estimated GFR > 60 > 60 Random Glucose 121 H 124 H Calcium 8.8 8.7 Phosphorus 2.0 L 1.6 L Magnesium 2.2 2.4 Total Bilirubin 12.3 H AST 102 H ALT 20 Alkaline Phosphatase 111 Ammonia 66 H Total Protein 6.9 Albumin 3.5 Microbiology Microbiology Results: Microbiology 03/25/23 19:18 Blood - Venous Blood Culture - Preliminary No growth after 24 hours. 03/25/23 19:18 Blood - Venous Blood Culture - Preliminary No growth after 24 hours. 03/22/23 23:25 Blood - Venous Blood Culture - Preliminary No growth after 48 hours. 03/22/23 23:25 Blood - Venous Blood Culture - Preliminary No growth after 48 hours. Progress Note: A&P Assessment and plan (1) Hyperbilirubinemia: Status: Acute (2) Ileus: Status: Acute (3) Aspiration into airway: Status: Acute (4) Cardiopulmonary arrest with successful resuscitation: Status: Acute (5) Liver cirrhosis: Status: Acute (6) Alcohol withdrawal: Status: Acute (7) Encephalopathy, hepatic: Status: Acute Plan Assessment: 37-year-old gentleman admitted with alcohol intoxication on the background of degree cirrhosis with hospital course complicated by cardiopulmonary arrest secondary to pulmonary aspiration likely secondary to underlying ileus versus SBO. Plan: Neuro: Hepatic encephalopathy, continue lactulose. Cardiac: Cardiac arrest secondary to pulmonary aspiration. Continue to titrate off pressors as tolerated. 2D echo is normal. Pulmonary: Intubated during the CPR on the background of aspiration of gastric content. Continue to titrate off ventilatory support as tolerated. Renal: No acute issues. Endo: No acute issues. GI: Alcoholic liver cirrhosis with hyperbilirubinemia. Ileus, now s/p neostigmine with improvement of abdominal distension. General surgery and gastroenterology services care appreciated. ID: aspiration pneumonitis versus pneumonia after aspiration of gastric contents. Empirically covered with broad-spectrum antibiotics. Heme/Onc: No acute issues. Psych: No acute issues. Miscellaneous: No acute issues. Prophylaxis: Heparin, ppi Diet: TPN Critical care time spent: 60 minutes Quality Stroke Does the patient have a stroke diagnosis?: No VTE Prior VTE?: No VTE Risk Level:: Medical - moderate - high VTE Device Contraindication: N/A - Device Ordered VTE Drug Contraindication: Treatment Not Indicated
[2023-03-27 11:05] LABS: INTERNATIONAL NORM RATIO 1.5 (0.9-1.1); Prothrombin Time 18.1 SEC (11.1-13.3); Vancomycin Random 8.2 mcg/mL (15-20)
--- NOTE | 2023-03-27 11:12 | HE.PHANOTE ---
re: ginny patients level came back this morning at 8.2 down from 16.7. I suspect its due to improvement in renal function. Scr fell to 0.89 today from 1.45 yesterday, crcl now at 145 ml/min. will increase dose to 1500 mg Q12H and get a level after 2 doses to ensure safety and efficacy, predicted auc 471
[2023-03-27] MEDS: dexmedeTOMIDidine HCL/NS 400 MCG/100 ML INFUS..BTL 14.38 MCG IVCONT ×2 (12:54→19:46)
[2023-03-27] MEDS: vancomycin HCL 1,250 MG in 0.9 % Sodium Chloride 250 ML 166.67 MG IV (13:16)
--- NOTE | 2023-03-27 16:49 | PM.GIPN ---
Subjective Subjective Date of Service: 03/27/23 Interval History: Still on the vent and requiring support got dose of neostigimine yesterday with good output, slightyl less abdominal distention bili slightly down Critical Care Time (minutes): 0 Physical Exam Vital Signs: Vital Signs: Last Vital Signs Temp 101.1 F H 03/27/23 16:00 Pulse 103 H 03/27/23 16:00 Resp 35 H 03/27/23 16:00 BP 145/79 H 03/27/23 16:00 Pulse Ox 95 03/27/23 16:00 O2 Del Method Mechanical Ventil ation 03/27/23 16:00 O2 Flow Rate 50 03/24/23 08:52 FiO2 30 03/27/23 16:00 BMI result Body Mass Index 34.7 EXAM: GENERAL: The patient is jaundiced VITAL SIGNS:see workflow HEENT: icteric sclerae, PERRLA, EOMI. Oropharynx clear. Moist mucous membranes. Conjunctivae appear well perfused. No thyroid mass. CHEST: Chest wall is nontender. HEART: Regular rate and rhythm without murmurs. LUNGS: Clear to auscultation bilaterally. ABDOMEN: Soft, reeduced bowel sounds, nontender, no organomegaly.no flank tenderness SKIN: No rash, no excessive bruising, petechiae, or purpura. NEUROLOGIC: sedated, on vent Objective Data Labs 03/27/23 04:17 03/27/23 04:17 Labs: Laboratory Results - last 24 hr 03/26/23 03/27/23 03/27/23 19:39 04:17 04:24 WBC 14.2 H RBC 2.77 L Hgb 8.1 L Hct 25.4 L MCV 91.7 MCH 29.2 MCHC 31.9 RDW 27.9 H Plt Count 146 L MPV 11.9 Immature Gran % (Auto) Cancelled Neut % (Auto) Cancelled Lymph % (Auto) Cancelled [place] % (Auto) Cancelled Eos % (Auto) Cancelled Baso % (Auto) Cancelled Lymph # (Auto) Cancelled [place] # (Auto) Cancelled Eos # (Auto) Cancelled Baso # (Auto) Cancelled Abs Immat Gran (auto) Cancelled Absolute Neuts (auto) Cancelled Absolute Nucleated RBC 0.030 H Nucleated RBC % (auto) 0.2 Neutrophils % (Manual) 61 Band Neutrophils % 17 H Lymphocytes % (Manual) 8 L Monocytes % (Manual) 6 Eosinophils % (Manual) 1 Basophils % (Manual) 2 Metamyelocytes % 3 Myelocytes % 1 Promyelocytes % 1 Abs Neuts (Manual) 11.1 H Lymphocytes # (Manual) 1.1 L Monocytes # (Manual) 0.9 Eosinophils # (Manual) 0.1 Basophils # (Manual) 0.3 H Metamyelocytes # 0.4 Myelocytes # 0.1 Promyelocytes # 0.1 Nucleated RBCs 1 H Toxic Granulation PRESENT Toxic Vacuolation PRESENT Platelet Estimate SLIGHTLY DECREASED Large Platelets PRESENT Plt Morphology Comment NOTED RBC Morphology NOTED Polychromasia 1+ (0-2) Hypochromasia 1+ (5-14) Target Cells 1+ (5-14) Ovalocytes 1+ (5-14) Schistocytes 1+ (0-2) PT INR VBG pH 7.58 H VBG pCO2 23 VBG pO2 66 VBG HCO3 22 VBG O2 Saturation 95.0 VBG Base Excess 1.3 Sodium 141 141 Potassium 3.7 3.0 L Chloride 108 110 H Carbon Dioxide 22 21 L Anion Gap 15 13 BUN 19 H 15 Creatinine 1.11 0.89 Estim Creat Clear Calc 118.6 147.9 Estimated GFR > 60 > 60 Random Glucose 121 H 124 H Calcium 8.8 8.7 Phosphorus 2.0 L 1.6 L Magnesium 2.2 2.4 Total Bilirubin 12.3 H AST 102 H ALT 20 Alkaline Phosphatase 111 Ammonia 66 H Total Protein 6.9 Albumin 3.5 Random Vancomycin 03/27/23 10:46 WBC RBC Hgb Hct MCV MCH MCHC RDW Plt Count MPV Immature Gran % (Auto) Neut % (Auto) Lymph % (Auto) [place] % (Auto) Eos % (Auto) Baso % (Auto) Lymph # (Auto) [place] # (Auto) Eos # (Auto) Baso # (Auto) Abs Immat Gran (auto) Absolute Neuts (auto) Absolute Nucleated RBC Nucleated RBC % (auto) Neutrophils % (Manual) Band Neutrophils % Lymphocytes % (Manual) Monocytes % (Manual) Eosinophils % (Manual) Basophils % (Manual) Metamyelocytes % Myelocytes % Promyelocytes % Abs Neuts (Manual) Lymphocytes # (Manual) Monocytes # (Manual) Eosinophils # (Manual) Basophils # (Manual) Metamyelocytes # Myelocytes # Promyelocytes # Nucleated RBCs Toxic Granulation Toxic Vacuolation Platelet Estimate Large Platelets Plt Morphology Comment RBC Morphology Polychromasia Hypochromasia Target Cells Ovalocytes Schistocytes PT 18.1 H INR 1.5 H VBG pH VBG pCO2 VBG pO2 VBG HCO3 VBG O2 Saturation VBG Base Excess Sodium Potassium Chloride Carbon Dioxide Anion Gap BUN Creatinine Estim Creat Clear Calc Estimated GFR Random Glucose Calcium Phosphorus Magnesium Total Bilirubin AST ALT Alkaline Phosphatase Ammonia Total Protein Albumin Random Vancomycin 8.2 L Microbiology Microbiology Results: Microbiology 03/25/23 19:18 Blood - Venous Blood Culture - Preliminary No growth after 24 hours. 03/25/23 19:18 Blood - Venous Blood Culture - Preliminary No growth after 24 hours. 03/22/23 23:25 Blood - Venous Blood Culture - Preliminary No growth after 48 hours. 03/22/23 23:25 Blood - Venous Blood Culture - Preliminary No growth after 48 hours. Procedures Date of Service Date of Service: 03/27/23 Progress Note: A&P Assessment and plan (1) Hyperbilirubinemia: Status: Acute (2) Ileus: Status: Acute Plan 1/ Some improvement in distention s/p neostigimine 2/ Elevated bili, seems to have reached plateau PLAN; 1/ can rept dose of neostigimine once more if needed 2/ cont to trend bili Time Spent With Patient Time: Total time managing care of this patient today ____ minutes. Quality Stroke Does the patient have a stroke diagnosis?: No VTE Prior VTE?: No VTE Risk Level:: Medical - moderate - high VTE Device Contraindication: N/A - Device Ordered VTE Drug Contraindication: Treatment Not Indicated
[2023-03-27] MEDS: Parenteral Nutrition 2,280 ML 95 ML IV (20:33)
[2023-03-28] VITALS (37 sets, daily range): BP systolic 87–193; BP diastolic 4–112; PULSE 88–128; RESP 17–42; TEMP 35–39.4; O2SAT 89–99; BMI 36.5
[2023-03-28] MEDS: dexmedeTOMIDidine HCL/NS 400 MCG/100 ML INFUS..BTL 25.88 MCG IVCONT (00:36)
[2023-03-28] MEDS: vancomycin HCL 1,250 MG in 0.9 % Sodium Chloride 250 ML 166.67 MG IV (00:36)
[2023-03-28] MEDS: Heparin Sodium,Porcine 5,000 UNIT/ML VIAL 5000 UNIT SUBCUT ×3 (02:15→17:32)
[2023-03-28] MEDS: Midazolam HCl/PF 2 MG/2 ML VIAL IVPUSH ×3 (02:57→13:22)
[2023-03-28] MEDS: dexmedeTOMIDidine HCL/NS 400 MCG/100 ML INFUS..BTL 31.63 MCG IVCONT ×3 (03:59→09:00)
[2023-03-28 05:09] LABS: VBG Base Excess -4.9 mmol/L; VBG HCO3 17 mmol/L (22-26); VBG pCO2 23 mmHg; VBG pH 7.47 (7.32-7.43); VBG pO2 89 mmHg
[2023-03-28 05:10] LABS: Venous Blood Gas Refer to POC result
[2023-03-28 05:13] LABS: Hematocrit 24.7 % (42.0-52.0); Hemoglobin 7.7 g/dl (14.0-18.0); Mean Corpuscular HGB Conc 31.2 g/dl (31.0-36.0); Mean Corpuscular Hemoglobin 29.2 pg (27.0-33.0); Mean Corpuscular Volume 93.6 fL (80.0-98.0); Mean Platelet Volume 10.7 fL (9.4-12.4); NRBC Pct Auto 0.4 /100WBC (0.0-0.2); Platelet Count 162 X10*3/uL (160-400); Red Blood Count 2.64 X10*6/uL (4.60-5.80); Red Cell Distribution Width 28.7 % (11.0-16.0); White Blood Count 15.7 X10*3/uL (4.8-10.8)
[2023-03-28] MEDS: Piperacillin Sodium/Tazobactam 4.5 GM in 0.9 % Sodium Chloride 100 ML IV ×3 (05:15→20:16)
[2023-03-28 05:30] LABS: Alanine Aminotransferase 21 U/L (0-40); Albumin Level 3.2 g/dL (3.5-5.0); Alkaline Phosphatase 103 U/L (39-117); Anion Gap 13 (12-20); Aspartate Amino Transferase 99 U/L (5-37); Bilirubin Total 13.3 mg/dL (0.0-1.0); Blood Urea Nitrogen 12 mg/dL (9-16); Calcium 8.8 mg/dL (8.4-10.2); Carbon Dioxide 17 mmol/L (22-29); Chloride 117 mmol/L (96-108); Creatinine Clr Calc Pharmacy 168.8; Estimated Glomerular Filt Rate > 60; Glucose Random 140 mg/dL (60-115); Magnesium 2.4 mg/dL (1.6-2.6); Phosphorus 2.5 mg/dL (2.7-4.5); Potassium 3.2 mmol/L (3.3-5.1); Sodium 144 mmol/L (135-145); Total Protein 6.8 g/dL (6.5-8.0)
[2023-03-28 05:48] LABS: Band Neutrophils Percent 7 % (3-5); Basophils Abs Manual 0.2 X10*3/uL (0.0-0.2); Basophils Percent Manual 1 % (0-2); Eosinophils Absolute Manual 0.3 X10*3/uL (0.0-0.4); Eosinophils Percent Manual 2 % (0-4); Lymphocytes Absolute Manual 1.9 X10*3/uL (1.2-4.9); Lymphocytes Percent Manual 12 % (20-40); Metamyelocytes Absolute 0.6 X10*3/uL; Metamyelocytes Percent 4 %; Monocytes Absolute Manual 1.3 X10*3/uL (0.1-1.2); Monocytes Percent Manual 8 % (2-11); Myelocytes Absolute 0.5 X10*/uL; Myelocytes Percent 3 %; Neutrophils Absolute Manual 10.8 X10*3/uL (2.0-8.3); Neutrophils Percent Manual 62 % (45-73); Promyelocytes Absolute 0.2 X10*3/uL; Promyelocytes Percent 1 %; RBC Morphology NOTED
[2023-03-28 05:49] LABS: Burr Cells 1+ (0-2) /OIF; Macrocytosis 1+ (5-14) /OIF; Ovalocytes 1+ (5-14) /OIF; Schistocytes 1+ (0-2) /OIF; Target Cells 1+ (5-14) /OIF
[2023-03-28 05:50] LABS: Dohle Bodies PRESENT; Toxic Granulation PRESENT
[2023-03-28 05:51] LABS: Hypochromasia 1+ (5-14) /OIF; Polychromasia 1+ (0-2) /OIF
[2023-03-28 05:52] LABS: Platelet Estimate NORMAL (NORMAL); Platelet Morphology Comment NORMAL
[2023-03-28] MEDS: Potassium Phosphate/NS 15 MMOL/250 ML PLAST..BAG 62.5 MMOL IV ×2 (05:58→10:49)
[2023-03-28] MEDS: Lactulose 20 GM/30 ML SOLUTION 30 GM PO ×3 (07:19→22:05)
[2023-03-28] MEDS: Chlorhexidine Gluc Oral Rinse 15 ML MOUTHWASH BUCCAL ×3 (07:19→22:05)
[2023-03-28] MEDS: Furosemide 40 MG/4 ML VIAL IVPUSH ×2 (09:18→19:35)
--- NOTE | 2023-03-28 10:07 | PM.CCPN ---
Subjective Subjective Date of Service: 03/28/23 Interval History: 37-year-old gentleman with underlying history of alcohol abuse, liver cirrhosis, bipolar disorder MDD admitted on 03/21/2023 with alcohol intoxication. Hospital course significant for abdominal pain for which patient was evaluated by General surgery on 03/22/2023 with no concern for cholecystitis. Further hospital stay complicated by cardiac arrest secondary to pulmonary aspiration of bilious gastric content with returned spontaneous circulation achieved after 3 around of CPR with patient intubated during the CPR and transferred to intensive care unit. In the intensive care unit patient required re-intubation with a large ET tube. OG drained approximately 1 L of bilious fluid. CT abdomen/ pelvis demonstrated dilated bowel loops with no definite transition point. Re-evaluated by General surgery with p.o. contrast noted in colon, thus no intervention warranted at that time. No events overnight. Ileus is improving. Critical Care Time (minutes): 60 Physical Exam Vital Signs: Vital Signs: Last Vital Signs Temp 100.8 F H 03/28/23 09:00 Pulse 105 H 03/28/23 09:00 Resp 31 H 03/28/23 09:00 BP 132/85 03/28/23 09:00 Pulse Ox 92 03/28/23 09:00 O2 Del Method Mechanical Ventil ation 03/28/23 09:00 O2 Flow Rate 50 03/24/23 08:52 FiO2 30 03/28/23 09:00 BMI result Body Mass Index 36.5 Const: General: no acute distress and other (no arousal off sedation, jaundiced) Eyes: Sclerae: scleral abnormal (icteric) Pupils: Pupil size comments (4mm bilateral responsive) Neck: Neck: Yes no lymphadenopathy, Yes trachea midline and Yes supple Resp: Auscultation: clear to auscultation bilaterally Cardio: Rate: tachycardic Rhythm: regular rhythm Heart sounds: no gallops, no murmurs and no rubs GI: Palpation (GI): Soft to palpation and Other GI palpation findings present ( Nontender) Auscultation: normal bowel sounds Extrem: General: No clubbing, No cyanosis and Yes edema (2+ bilateral) Objective Data Labs 03/28/23 04:59 03/28/23 04:59 Labs: Laboratory Results - last 24 hr 03/27/23 03/28/23 03/28/23 10:46 04:59 05:03 WBC 15.7 H RBC 2.64 L Hgb 7.7 L Hct 24.7 L MCV 93.6 MCH 29.2 MCHC 31.2 RDW 28.7 H Plt Count 162 MPV 10.7 Immature Gran % (Auto) Cancelled Neut % (Auto) Cancelled Lymph % (Auto) Cancelled [place] % (Auto) Cancelled Eos % (Auto) Cancelled Baso % (Auto) Cancelled Lymph # (Auto) Cancelled [place] # (Auto) Cancelled Eos # (Auto) Cancelled Baso # (Auto) Cancelled Abs Immat Gran (auto) Cancelled Absolute Neuts (auto) Cancelled Absolute Nucleated RBC 0.060 H Nucleated RBC % (auto) 0.4 H Neutrophils % (Manual) 62 Band Neutrophils % 7 H Lymphocytes % (Manual) 12 L Monocytes % (Manual) 8 Eosinophils % (Manual) 2 Basophils % (Manual) 1 Metamyelocytes % 4 Myelocytes % 3 Promyelocytes % 1 Abs Neuts (Manual) 10.8 H Lymphocytes # (Manual) 1.9 Monocytes # (Manual) 1.3 H Eosinophils # (Manual) 0.3 Basophils # (Manual) 0.2 Metamyelocytes # 0.6 Myelocytes # 0.5 Promyelocytes # 0.2 Toxic Granulation PRESENT [place]oh[place] Bodies PRESENT Platelet Estimate NORMAL Plt Morphology Comment NORMAL RBC Morphology NOTED Polychromasia 1+ (0-2) Hypochromasia 1+ (5-14) Macrocytosis 1+ (5-14) Target Cells 1+ (5-14) Ovalocytes 1+ (5-14) [place] Cells 1+ (0-2) Schistocytes 1+ (0-2) PT 18.1 H INR 1.5 H VBG pH 7.47 H VBG pCO2 23 VBG pO2 89 VBG HCO3 17 L VBG O2 Saturation 97.0 VBG Base Excess -4.9 Sodium 144 Potassium 3.2 L Chloride 117 H Carbon Dioxide 17 L Anion Gap 13 BUN 12 Creatinine 0.78 Estim Creat Clear Calc 168.8 Estimated GFR > 60 Random Glucose 140 H Calcium 8.8 Phosphorus 2.5 L Magnesium 2.4 Total Bilirubin 13.3 H AST 99 H ALT 21 Alkaline Phosphatase 103 Total Protein 6.8 Albumin 3.2 L Random Vancomycin 8.2 L Microbiology Microbiology Results: Microbiology 03/22/23 23:25 Blood - Venous Blood Culture - Final No growth after 5 days. 03/22/23 23:25 Blood - Venous Blood Culture - Final No growth after 5 days. 03/25/23 19:18 Blood - Venous Blood Culture - Preliminary No growth after 48 hours. 03/25/23 19:18 Blood - Venous Blood Culture - Preliminary No growth after 48 hours. Progress Note: A&P Assessment and plan (1) Hyperbilirubinemia: Status: Acute (2) Ileus: Status: Acute (3) Aspiration into airway: Status: Acute (4) Cardiopulmonary arrest with successful resuscitation: Status: Acute (5) Liver cirrhosis: Status: Acute (6) Encephalopathy, hepatic: Status: Acute Plan Assessment: 37-year-old gentleman admitted with alcohol intoxication on the background of degree cirrhosis with hospital course complicated by cardiopulmonary arrest secondary to pulmonary aspiration likely secondary to underlying ileus versus SBO. Plan: Neuro: Hepatic encephalopathy, continue lactulose. Poor arousal with sedation vacation, will obtain MRI brain. Cardiac: Cardiac arrest secondary to pulmonary aspiration. Continue to titrate off pressors as tolerated. 2D echo is normal. Pulmonary: Intubated during the CPR on the background of aspiration of gastric content. Continue to titrate off ventilatory support as tolerated. Renal: No acute issues. Endo: No acute issues. GI: Alcoholic liver cirrhosis with hyperbilirubinemia. Ileus, now s/p neostigmine with improvement of abdominal distension, improving. General surgery and gastroenterology services care appreciated. ID: aspiration pneumonitis versus pneumonia after aspiration of gastric contents. Empirically covered with broad-spectrum antibiotics. Heme/Onc: No acute issues. Psych: No acute issues. Miscellaneous: No acute issues. Prophylaxis: Heparin, ppi Diet: TPN Critical care time spent: 60 minutes Quality Stroke Does the patient have a stroke diagnosis?: No VTE Prior VTE?: No VTE Risk Level:: Medical - moderate - high VTE Device Contraindication: N/A - Device Ordered VTE Drug Contraindication: Treatment Not Indicated
[2023-03-28 11:21] LABS: Vancomycin Random 9.6 mcg/mL (15-20)
--- NOTE | 2023-03-28 11:35 | HE.PHANOTE ---
RE ABE DOSING DOSE INCREASE YESTERDAY WAS ENTERED 1250 Q12 INSTEAD OF THE DOCUMENTED 1500 Q12. TROUGH TODAY IS SLIGHT INCREASE TO 9.6 BUT STILL NOT THERAPEUTIC. WILL INCREASE DOSE TO 1500 Q12 TODAY AND RECHECK LEVEL 03/29 @1000 SO ENSURE EFFICACY. MAY STILL NEED TO INCREASE DOSE AGAIN AFTER THAT BUT ACCORDING TO INSIGHT THIS DOSE WILL PROVIDE AUC 597 WITH PEAK TROUGH ONLY 9.1.
[2023-03-28] MEDS: fentaNYL citrate/PF 100 MCG/2 ML VIAL 50 MCG IVPUSH ×2 (11:41→12:40)
[2023-03-28] MEDS: vancomycin HCL 1,500 MG in 0.9 % Sodium Chloride 500 ML 333.33 MG IV (14:03)
[2023-03-28 14:35] LABS: VBG Base Excess -7.4 mmol/L; VBG HCO3 20 mmol/L (22-26); VBG pCO2 51 mmHg; VBG pO2 90 mmHg
[2023-03-28] MEDS: dexmedeTOMIDidine HCL/NS 400 MCG/100 ML INFUS..BTL 30.55 MCG IVCONT ×3 (14:45→23:06)
[2023-03-28 15:28] LABS: Lactic Acid 0.6 mmol/L (0.5-2.0)
[2023-03-28 15:31] LABS: Anion Gap 11 (12-20); Blood Urea Nitrogen 14 mg/dL (9-16); Calcium 8.9 mg/dL (8.4-10.2); Carbon Dioxide 20 mmol/L (22-29); Chloride 117 mmol/L (96-108); Creatinine Clr Calc Pharmacy 137.9; Estimated Glomerular Filt Rate > 60; Glucose Random 166 mg/dL (60-115); Potassium 3.9 mmol/L (3.3-5.1); Sodium 144 mmol/L (135-145)
[2023-03-28] MEDS: propofoL 1,000 MG/100 ML VIAL 20.7 MG IVCONT ×3 (16:23→23:51)
[2023-03-28] MEDS: dexmedeTOMIDidine HCL/NS 400 MCG/100 ML INFUS..BTL 36.66 MCG IVCONT (17:23)
[2023-03-28] MEDS: Cisatracurium Besylate 20 MG/10 ML VIAL IVPUSH (17:59)
--- NOTE | 2023-03-28 18:19 | PC.NURSE ---
Pt had presistently high RR (35-40), elevated temp (102), elevated HR (120s). MD ordered precedex, administered per JUL. Vitals persisted as before. etCO2 climbed rapidly upward from high 50s to low 90s. MD ordered propofol, administered per JUL. No effect on vitals, MD updated. Nimbex ordered and given per jul. At MD's instruction RT at bedside to adjust vent settings with goal being 10L/min ventilation rate. Due to high peak pressures (over 60), ventilation rate was approx 7.75L/min, with peak pressure at approx 48. etCO2 is at time of writing at 57. MD aware.
[2023-03-28 19:02] LABS: VBG Base Excess -6.1 mmol/L; VBG HCO3 21 mmol/L (22-26); VBG pCO2 50 mmHg; VBG pH 7.22 (7.32-7.43); VBG pO2 84 mmHg
[2023-03-28 19:03] LABS: Venous Blood Gas Refer to POC result
[2023-03-28 19:04] LABS: Venous Blood Gas Refer to POC result
[2023-03-28] MEDS: Norepinephrine Bitartrate/D5W 8 MG/250 ML PLAST..BAG 6.47 MG IV (19:58)
[2023-03-28] MEDS: Parenteral Nutrition 2,280 ML 95 ML IV (22:10)
[2023-03-29] VITALS (46 sets, daily range): BP systolic 90–175; BP diastolic 39–94; PULSE 83–123; RESP 24–43; TEMP 34.7–39.8; O2SAT 90–97; BMI 36.4
[2023-03-29] MEDS: Piperacillin Sodium/Tazobactam 4.5 GM in 0.9 % Sodium Chloride 100 ML IV ×4 (01:48→19:14)
[2023-03-29] MEDS: dexmedeTOMIDidine HCL/NS 400 MCG/100 ML INFUS..BTL 30.55 MCG IVCONT ×2 (02:16→05:31)
[2023-03-29] MEDS: vancomycin HCL 1,500 MG in 0.9 % Sodium Chloride 500 ML 333.33 MG IV (02:20)
[2023-03-29] MEDS: Heparin Sodium,Porcine 5,000 UNIT/ML VIAL 5000 UNIT SUBCUT ×3 (03:22→18:10)
[2023-03-29] MEDS: propofoL 1,000 MG/100 ML VIAL 20.7 MG IVCONT (04:12)
[2023-03-29 05:24] LABS: VBG HCO3 18 mmol/L (22-26); VBG pCO2 30 mmHg; VBG pO2 85 mmHg
[2023-03-29 05:26] LABS: Venous Blood Gas Refer to POC result
[2023-03-29 05:37] LABS: Hematocrit 25.8 % (42.0-52.0); Hemoglobin 7.9 g/dl (14.0-18.0); Mean Corpuscular HGB Conc 30.6 g/dl (31.0-36.0); Mean Corpuscular Hemoglobin 30.2 pg (27.0-33.0); Mean Corpuscular Volume 98.5 fL (80.0-98.0); Mean Platelet Volume 11.2 fL (9.4-12.4); NRBC Pct Auto 0.5 /100WBC (0.0-0.2); Platelet Count 232 X10*3/uL (160-400); Red Blood Count 2.62 X10*6/uL (4.60-5.80); Red Cell Distribution Width 28.3 % (11.0-16.0)
[2023-03-29 05:38] LABS: WBC ABN SCTR FOR CBC 1; White Blood Count 26.4 X10*3/uL (4.8-10.8)
[2023-03-29 05:56] LABS: Alanine Aminotransferase 31 U/L (0-40); Albumin Level 3.2 g/dL (3.5-5.0); Alkaline Phosphatase 106 U/L (39-117); Anion Gap 14 (12-20); Aspartate Amino Transferase 124 U/L (5-37); Bilirubin Total 12.8 mg/dL (0.0-1.0); Blood Urea Nitrogen 19 mg/dL (9-16); Calcium 8.9 mg/dL (8.4-10.2); Carbon Dioxide 19 mmol/L (22-29); Chloride 117 mmol/L (96-108); Creatinine Clr Calc Pharmacy 92.4; Estimated Glomerular Filt Rate 54; Glucose Random 141 mg/dL (60-115); Magnesium 2.2 mg/dL (1.6-2.6); Potassium 3.6 mmol/L (3.3-5.1); Sodium 146 mmol/L (135-145); Total Protein 7.1 g/dL (6.5-8.0); Triglycerides 261 mg/dL (<150)
[2023-03-29 07:48] LABS: Band Neutrophils Percent 25 % (3-5); Eosinophils Absolute Manual 0.5 X10*3/uL (0.0-0.4); Eosinophils Percent Manual 2 % (0-4); Lymphocytes Absolute Manual 2.4 X10*3/uL (1.2-4.9); Lymphocytes Percent Manual 9 % (20-40); Metamyelocytes Absolute 0.8 X10*3/uL; Metamyelocytes Percent 3 %; Monocytes Absolute Manual 2.6 X10*3/uL (0.1-1.2); Monocytes Percent Manual 10 % (2-11); Myelocytes Absolute 0.5 X10*/uL; Myelocytes Percent 2 %; Neutrophils Absolute Manual 19.5 X10*3/uL (2.0-8.3); Neutrophils Percent Manual 49 % (45-73)
[2023-03-29 07:51] LABS: Acanthocytes 1+ (0-2) /OIF; Hypochromasia 1+ (5-14) /OIF; Large Platelet PRESENT; Macrocytosis 1+ (5-14) /OIF; Ovalocytes 1+ (5-14) /OIF; Platelet Estimate NORMAL (NORMAL); Platelet Morphology Comment NOTED; RBC Morphology NOTED; Schistocytes 1+ (0-2) /OIF; Target Cells 1+ (5-14) /OIF
[2023-03-29 07:52] LABS: Toxic Granulation PRESENT; Toxic Vacuolation PRESENT
--- NOTE | 2023-03-29 08:23 | PM.CCPN ---
Subjective Subjective Date of Service: 03/29/23 Interval History: 37-year-old gentleman with underlying history of alcohol abuse, liver cirrhosis, bipolar disorder MDD admitted on 03/21/2023 with alcohol intoxication. Hospital course significant for abdominal pain for which patient was evaluated by General surgery on 03/22/2023 with no concern for cholecystitis. Further hospital stay complicated by cardiac arrest secondary to pulmonary aspiration of bilious gastric content with returned spontaneous circulation achieved after 3 around of CPR with patient intubated during the CPR and transferred to intensive care unit. In the intensive care unit patient required re-intubation with a large ET tube. OG drained approximately 1 L of bilious fluid. CT abdomen/ pelvis demonstrated dilated bowel loops with no definite transition point. Re-evaluated by General surgery with p.o. contrast noted in colon, thus no intervention warranted at that time. Continues with significant cephalopathy and poor arousal with sedation vacation. MRI brain on 03/28/2023 is essentially normal. No events overnight. Critical Care Time (minutes): 60 Physical Exam Vital Signs: Vital Signs: Last Vital Signs Temp 103.6 F H 03/29/23 08:00 Pulse 92 03/29/23 08:00 Resp 33 H 03/29/23 08:00 BP 133/81 03/29/23 08:00 Pulse Ox 97 03/29/23 07:00 O2 Del Method Mechanical Ventil ation 03/29/23 08:00 O2 Flow Rate 50 03/24/23 08:52 FiO2 50 03/29/23 08:00 BMI result Body Mass Index 36.4 Const: General: no acute distress and other ( Jaundiced, no arousal with sedation vacation) Eyes: Sclerae: scleral abnormal (icteric) Neck: Neck: Yes no lymphadenopathy, Yes trachea midline and Yes supple Resp: Auscultation: clear to auscultation bilaterally Cardio: Rate: tachycardic Rhythm: regular rhythm Heart sounds: no gallops, no murmurs and no rubs GI: Palpation (GI): Soft to palpation and Other GI palpation findings present ( Nontender) Auscultation: normal bowel sounds Extrem: General: No clubbing, No cyanosis and Yes edema (1+ bilateral) Objective Data Labs 03/29/23 05:17 03/29/23 05:17 Labs: Laboratory Results - last 24 hr 03/28/23 03/28/23 03/28/23 10:49 14:28 14:53 WBC RBC Hgb Hct MCV MCH MCHC RDW Plt Count MPV Immature Gran % (Auto) Neut % (Auto) Lymph % (Auto) [place] % (Auto) Eos % (Auto) Baso % (Auto) Lymph # (Auto) [place] # (Auto) Eos # (Auto) Baso # (Auto) Abs Immat Gran (auto) Absolute Neuts (auto) Absolute Nucleated RBC Nucleated RBC % (auto) Neutrophils % (Manual) Band Neutrophils % Lymphocytes % (Manual) Monocytes % (Manual) Eosinophils % (Manual) Metamyelocytes % Myelocytes % Abs Neuts (Manual) Lymphocytes # (Manual) Monocytes # (Manual) Eosinophils # (Manual) Metamyelocytes # Myelocytes # Toxic Granulation Toxic Vacuolation Platelet Estimate Large Platelets Plt Morphology Comment RBC Morphology Hypochromasia Macrocytosis Target Cells Ovalocytes Acanthocytes (Spur) Schistocytes Hold Purple Top SEE NOTE VBG pH 7.20 L* VBG pCO2 51 VBG pO2 90 VBG HCO3 20 L VBG O2 Saturation 94.0 VBG Base Excess -7.4 Sodium 144 Potassium 3.9 D Chloride 117 H Carbon Dioxide 20 L Anion Gap 11 L BUN 14 Creatinine 0.98 Estim Creat Clear Calc 137.9 Estimated GFR > 60 Random Glucose 166 H Lactic Acid 0.6 Calcium 8.9 Phosphorus Magnesium Total Bilirubin AST ALT Alkaline Phosphatase Total Protein Albumin Triglycerides Hold Yellow Top See Note Random Vancomycin 9.6 L 03/28/23 03/29/23 03/29/23 18:55 05:17 05:18 WBC 26.4 H RBC 2.62 L Hgb 7.9 L Hct 25.8 L MCV 98.5 H MCH 30.2 MCHC 30.6 L RDW 28.3 H Plt Count 232 D MPV 11.2 Immature Gran % (Auto) Cancelled Neut % (Auto) Cancelled Lymph % (Auto) Cancelled [place] % (Auto) Cancelled Eos % (Auto) Cancelled Baso % (Auto) Cancelled Lymph # (Auto) Cancelled [place] # (Auto) Cancelled Eos # (Auto) Cancelled Baso # (Auto) Cancelled Abs Immat Gran (auto) Cancelled Absolute Neuts (auto) Cancelled Absolute Nucleated RBC 0.140 H Nucleated RBC % (auto) 0.5 H Neutrophils % (Manual) 49 Band Neutrophils % 25 H Lymphocytes % (Manual) 9 L Monocytes % (Manual) 10 Eosinophils % (Manual) 2 Metamyelocytes % 3 Myelocytes % 2 Abs Neuts (Manual) 19.5 H Lymphocytes # (Manual) 2.4 Monocytes # (Manual) 2.6 H Eosinophils # (Manual) 0.5 H Metamyelocytes # 0.8 Myelocytes # 0.5 Toxic Granulation PRESENT Toxic Vacuolation PRESENT Platelet Estimate NORMAL Large Platelets PRESENT Plt Morphology Comment NOTED RBC Morphology NOTED Hypochromasia 1+ (5-14) Macrocytosis 1+ (5-14) Target Cells 1+ (5-14) Ovalocytes 1+ (5-14) Acanthocytes ([place]) 1+ (0-2) Schistocytes 1+ (0-2) Hold Purple Top VBG pH 7.22 L 7.40 VBG pCO2 50 30 VBG pO2 84 85 VBG HCO3 21 L 18 L VBG O2 Saturation 95.0 98.0 VBG Base Excess -6.1 -5.0 Sodium 146 H Potassium 3.6 Chloride 117 H Carbon Dioxide 19 L Anion Gap 14 BUN 19 H Creatinine 1.46 H Estim Creat Clear Calc 92.4 Estimated GFR 54 Random Glucose 141 H Lactic Acid Calcium 8.9 Phosphorus 3.0 Magnesium 2.2 Total Bilirubin 12.8 H AST 124 H ALT 31 Alkaline Phosphatase 106 Total Protein 7.1 Albumin 3.2 L Triglycerides 261 H Hold Yellow Top Random Vancomycin Microbiology Microbiology Results: Microbiology 03/22/23 23:25 Blood - Venous Blood Culture - Final No growth after 5 days. 03/22/23 23:25 Blood - Venous Blood Culture - Final No growth after 5 days. 03/25/23 19:18 Blood - Venous Blood Culture - Preliminary No growth after 48 hours. 03/25/23 19:18 Blood - Venous Blood Culture - Preliminary No growth after 48 hours. Progress Note: A&P Assessment and plan (1) Hyperbilirubinemia: Status: Acute (2) Ileus: Status: Acute (3) Aspiration into airway: Status: Acute (4) Cardiopulmonary arrest with successful resuscitation: Status: Acute (5) Liver cirrhosis: Status: Acute (6) Encephalopathy, hepatic: Status: Acute Plan Assessment: 37-year-old gentleman admitted with alcohol intoxication on the background of degree cirrhosis with hospital course complicated by cardiopulmonary arrest secondary to pulmonary aspiration likely secondary to underlying ileus versus SBO. Plan: Neuro: Hepatic encephalopathy, continue lactulose. Poor arousal with sedation vacation, MRI brain [place] on 03/28/2023. Cardiac: Cardiac arrest secondary to pulmonary aspiration. Continue to titrate off pressors as tolerated. 2D echo is normal. Pulmonary: Intubated during the CPR on the background of aspiration of gastric content. Continue to titrate off ventilatory support as tolerated. Renal: No acute issues. Endo: No acute issues. GI: Alcoholic liver cirrhosis with hyperbilirubinemia. Ileus, now s/p neostigmine with improvement of abdominal distension, improving. General surgery and gastroenterology services care appreciated. ID: aspiration pneumonitis versus pneumonia after aspiration of gastric contents. Empirically covered with broad-spectrum antibiotics. Heme/Onc: No acute issues. Psych: No acute issues. Miscellaneous: No acute issues. Prophylaxis: Heparin, ppi Diet: TPN Critical care time spent: 60 minutes Quality Stroke Does the patient have a stroke diagnosis?: No VTE Prior VTE?: No VTE Risk Level:: Medical - moderate - high VTE Device Contraindication: N/A - Device Ordered VTE Drug Contraindication: Treatment Not Indicated
[2023-03-29] MEDS: Albumin Human 25 % 100 ML IV ×3 (08:32→19:49)
[2023-03-29] MEDS: Lactulose 20 GM/30 ML SOLUTION 30 GM PO ×3 (08:33→19:49)
[2023-03-29] MEDS: Chlorhexidine Gluc Oral Rinse 15 ML MOUTHWASH BUCCAL ×3 (08:34→19:48)
--- NOTE | 2023-03-29 09:52 | MHC.CLN ---
F/U PT REMAINS INTUBATED AND SEDATED. DISCUSSED AT ROUNDS WITH MD. COMMUNICATED WITH PHARMACY. PPN TO CONTINUE AT 95ML/HR TO PROVIDE 1163KCALS (1709KCALS WITH SEDATION, 21.1 KCALS/KG IBW), 228G DEXTROSE, 97G PROTEIN (1,2 G/KG IBW). REPLETE LYTES NEEDED. CONTINUE TO FOLLOW WITH TEAM.
[2023-03-29] MEDS: Cisatracurium Besylate 20 MG/10 ML VIAL IVPUSH (10:05)
[2023-03-29] MEDS: propofoL 1,000 MG/100 ML VIAL 34.5 MG IVCONT ×6 (10:05→22:46)
[2023-03-29] MEDS: dexmedeTOMIDidine HCL/NS 400 MCG/100 ML INFUS..BTL 42.77 MCG IVCONT (10:10)
[2023-03-29 10:27] LABS: Vancomycin Random 18.5 mcg/mL (15-20)
--- NOTE | 2023-03-29 10:48 | HE.PHANOTE ---
re: ginny Patients level came back this morning at 18.5. Patients AUC was showing to be 720, this is supratherapeutic, patients renal also worsened. showing TILA. scr at 1.46 from 0.78 yesterday. 1250 mg Q12H was showing a high AUC of 622 and dose was increased to 1500 mg. Will decrease dose to 1000 mg Q12H and pend order until we get another level. level in for today at 2000 to ensure safety and efficacy.
[2023-03-29] MEDS: dexmedeTOMIDidine HCL/NS 400 MCG/100 ML INFUS..BTL 45.83 MCG IVCONT ×5 (12:35→22:10)
[2023-03-29] MEDS: Norepinephrine Bitartrate/D5W 8 MG/250 ML PLAST..BAG 6.47 MG IV (14:59)
--- NOTE | 2023-03-29 15:50 | MHC.CM.PN ---
EMR REVIEWED. PT REMAINS IN ICU ON VENTILATORY SUPPORT. CM WILL CONTINUE TO FOLLOW FOR ANY CHANGE IN DC PLAN/NEEDS.
[2023-03-29] MEDS: Parenteral Nutrition 2,280 ML 95 ML IV (20:40)
[2023-03-29 20:42] LABS: Vancomycin Random 11.4 mcg/mL (15-20)
[2023-03-29 20:43] LABS: Anion Gap 12 (12-20); Blood Urea Nitrogen 25 mg/dL (9-16); Calcium 9.2 mg/dL (8.4-10.2); Carbon Dioxide 19 mmol/L (22-29); Chloride 116 mmol/L (96-108); Creatinine Clr Calc Pharmacy 71.4; Estimated Glomerular Filt Rate 40; Glucose Random 143 mg/dL (60-115); Magnesium 2.5 mg/dL (1.6-2.6); Phosphorus 2.8 mg/dL (2.7-4.5); Potassium 3.5 mmol/L (3.3-5.1); Sodium 143 mmol/L (135-145)
--- NOTE | 2023-03-29 20:57 | HE.PHANOTE ---
RE: VANCO Based on predicted AUC of 743 and random level came back at 11.4, dose was decreased to 1000mg q12h, next random 03/30/23@0800.
[2023-03-29] MEDS: Potassium Chloride/H20 10 MEQ/100 ML PIGGYBACK 100 MEQ IV ×2 (21:54→23:04)
[2023-03-29] MEDS: vancomycin HCL 1,000 MG in 0.9 % Sodium Chloride 250 ML 270 MG IV (22:42)
[2023-03-30] VITALS (39 sets, daily range): BP systolic 98–155; BP diastolic 46–89; PULSE 79–123; RESP 25–44; TEMP 34.7–39.5; O2SAT 90–95; BMI 37.0
[2023-03-30] MEDS: Potassium Chloride/H20 10 MEQ/100 ML PIGGYBACK 100 MEQ IV ×2 (00:05→01:07)
[2023-03-30] MEDS: dexmedeTOMIDidine HCL/NS 400 MCG/100 ML INFUS..BTL 39.72 MCG IVCONT ×2 (00:22→03:11)
[2023-03-30] MEDS: propofoL 1,000 MG/100 ML VIAL 34.5 MG IVCONT ×3 (01:22→06:22)
[2023-03-30] MEDS: Heparin Sodium,Porcine 5,000 UNIT/ML VIAL 5000 UNIT SUBCUT ×3 (02:00→17:40)
[2023-03-30] MEDS: Albumin Human 25 % 100 ML IV (02:00)
[2023-03-30] MEDS: Piperacillin Sodium/Tazobactam 4.5 GM in 0.9 % Sodium Chloride 100 ML IV ×4 (02:01→19:47)
[2023-03-30 05:17] LABS: VBG Base Excess -4.9 mmol/L; VBG HCO3 17 mmol/L (22-26); VBG pCO2 25 mmHg; VBG pH 7.44 (7.32-7.43); VBG pO2 57 mmHg
[2023-03-30 05:30] LABS: Hematocrit 24.5 % (42.0-52.0); Hemoglobin 7.5 g/dl (14.0-18.0); Mean Corpuscular HGB Conc 30.6 g/dl (31.0-36.0); Mean Corpuscular Hemoglobin 29.6 pg (27.0-33.0); Mean Corpuscular Volume 96.8 fL (80.0-98.0); NRBC Pct Auto 0.1 /100WBC (0.0-0.2); Platelet Count 230 X10*3/uL (160-400); Red Blood Count 2.53 X10*6/uL (4.60-5.80); Red Cell Distribution Width 28.9 % (11.0-16.0); Venous Blood Gas Refer to POC result; White Blood Count 20.4 X10*3/uL (4.8-10.8)
[2023-03-30] MEDS: dexmedeTOMIDidine HCL/NS 400 MCG/100 ML INFUS..BTL 45.83 MCG IVCONT ×2 (05:40→07:53)
[2023-03-30 05:48] LABS: Alanine Aminotransferase 31 U/L (0-40); Albumin Level 3.8 g/dL (3.5-5.0); Alkaline Phosphatase 89 U/L (39-117); Anion Gap 14 (12-20); Aspartate Amino Transferase 121 U/L (5-37); Bilirubin Total 11.8 mg/dL (0.0-1.0); Blood Urea Nitrogen 27 mg/dL (9-16); Calcium 9.6 mg/dL (8.4-10.2); Carbon Dioxide 18 mmol/L (22-29); Chloride 113 mmol/L (96-108); Creatinine Clr Calc Pharmacy 73.9; Estimated Glomerular Filt Rate 41; Glucose Random 143 mg/dL (60-115); Magnesium 2.7 mg/dL (1.6-2.6); Phosphorus 2.5 mg/dL (2.7-4.5); Potassium 3.6 mmol/L (3.3-5.1); Sodium 141 mmol/L (135-145); Total Protein 7.4 g/dL (6.5-8.0); Triglycerides 254 mg/dL (<150)
[2023-03-30 06:20] LABS: Band Neutrophils Percent 18 % (3-5); Basophils Abs Manual 0.2 X10*3/uL (0.0-0.2); Basophils Percent Manual 1 % (0-2); Eosinophils Absolute Manual 0.6 X10*3/uL (0.0-0.4); Eosinophils Percent Manual 3 % (0-4); Lymphocytes Absolute Manual 1.2 X10*3/uL (1.2-4.9); Lymphocytes Percent Manual 6 % (20-40); Metamyelocytes Absolute 0.4 X10*3/uL; Metamyelocytes Percent 2 %; Monocytes Absolute Manual 0.6 X10*3/uL (0.1-1.2); Monocytes Percent Manual 3 % (2-11); Myelocytes Absolute 0.4 X10*/uL; Myelocytes Percent 2 %; Neutrophils Absolute Manual 16.9 X10*3/uL (2.0-8.3); Neutrophils Percent Manual 65 % (45-73)
[2023-03-30 06:21] LABS: Large Platelet PRESENT; Macrocytosis 1+ (5-14) /OIF; Microcytosis 1+ (5-14) /OIF; Ovalocytes 1+ (5-14) /OIF; Platelet Estimate NORMAL (NORMAL); Platelet Morphology Comment NOTED; RBC Morphology NOTED; Schistocytes 1+ (0-2) /OIF; Spherocytes 1+ (0-2) /OIF
[2023-03-30 06:22] LABS: Basophilic Stippling 1+ (0-2) /OIF; Burr Cells 1+ (0-2) /OIF; Dohle Bodies PRESENT; Hypochromasia 1+ (5-14) /OIF; Polychromasia 1+ (0-2) /OIF; Smudge Cells PRESENT; Target Cells 2+ (15-30) /OIF; Tear Drop Cells 1+ (0-2) /OIF; Toxic Granulation PRESENT; Toxic Vacuolation PRESENT
[2023-03-30] MEDS: Lactulose 20 GM/30 ML SOLUTION 30 GM PO ×3 (07:45→20:13)
[2023-03-30] MEDS: Chlorhexidine Gluc Oral Rinse 15 ML MOUTHWASH BUCCAL ×3 (07:45→20:10)
[2023-03-30] MEDS: Furosemide 40 MG/4 ML VIAL IVPUSH (09:12)
[2023-03-30] MEDS: Potassium Phosphate/NS 15 MMOL/250 ML PLAST..BAG 62.5 MMOL IV ×2 (09:13→14:01)
--- NOTE | 2023-03-30 09:27 | PM.CCPN ---
Subjective Subjective Date of Service: 03/30/23 Interval History: 37-year-old gentleman with underlying history of alcohol abuse, liver cirrhosis, bipolar disorder MDD admitted on 03/21/2023 with alcohol intoxication. Hospital course significant for abdominal pain for which patient was evaluated by General surgery on 03/22/2023 with no concern for cholecystitis. Further hospital stay complicated by cardiac arrest secondary to pulmonary aspiration of bilious gastric content with returned spontaneous circulation achieved after 3 around of CPR with patient intubated during the CPR and transferred to intensive care unit. In the intensive care unit patient required re-intubation with a large ET tube. OG drained approximately 1 L of bilious fluid. CT abdomen/ pelvis demonstrated dilated bowel loops with no definite transition point. Re-evaluated by General surgery with p.o. contrast noted in colon, thus no intervention warranted at that time. Continues with significant cephalopathy and poor arousal with sedation vacation. MRI brain on 03/28/2023 is essentially normal. No events overnight. Ventilatory high peak pressures improved after suctioning mucous plugs out. Critical Care Time (minutes): 60 Physical Exam Vital Signs: Vital Signs: Last Vital Signs Temp 99.5 F 03/30/23 07:00 Pulse 80 03/30/23 09:18 Resp 25 H 03/30/23 09:00 BP 102/54 L 03/30/23 09:18 Pulse Ox 93 03/30/23 09:00 O2 Del Method Mechanical Ventil ation 03/30/23 09:00 O2 Flow Rate 50 03/24/23 08:52 FiO2 50 03/30/23 09:00 BMI result Body Mass Index 37.0 Const: General: no acute distress and other ( jaundiced) Nutritional Appearance: Edematous Eyes: Sclerae: scleral abnormal ( icteric) Neck: Neck: Yes no lymphadenopathy, Yes trachea midline and Yes supple Resp: Auscultation: crackles ( mild bilateral) Cardio: Rate: tachycardic Rhythm: regular rhythm Heart sounds: no gallops, no murmurs and no rubs GI: Palpation (GI): Soft to palpation and Other GI palpation findings present ( Nontender) Auscultation: normal bowel sounds Extrem: General: No clubbing, No cyanosis and Yes edema ( 2+ bilateral) Objective Data Labs 03/30/23 05:11 03/30/23 05:11 Labs: Laboratory Results - last 24 hr 03/29/23 03/29/23 03/30/23 10:05 20:10 05:11 WBC 20.4 H RBC 2.53 L Hgb 7.5 L Hct 24.5 L MCV 96.8 MCH 29.6 MCHC 30.6 L RDW 28.9 H Plt Count 230 MPV 11.0 Immature Gran % (Auto) Cancelled Neut % (Auto) Cancelled Lymph % (Auto) Cancelled [place] % (Auto) Cancelled Eos % (Auto) Cancelled Baso % (Auto) Cancelled Lymph # (Auto) Cancelled [place] # (Auto) Cancelled Eos # (Auto) Cancelled Baso # (Auto) Cancelled Abs Immat Gran (auto) Cancelled Absolute Neuts (auto) Cancelled Absolute Nucleated RBC 0.030 H Nucleated RBC % (auto) 0.1 Neutrophils % (Manual) 65 Band Neutrophils % 18 H Lymphocytes % (Manual) 6 L Monocytes % (Manual) 3 Eosinophils % (Manual) 3 Basophils % (Manual) 1 Metamyelocytes % 2 Myelocytes % 2 Abs Neuts (Manual) 16.9 H Lymphocytes # (Manual) 1.2 Monocytes # (Manual) 0.6 Eosinophils # (Manual) 0.6 H Basophils # (Manual) 0.2 Metamyelocytes # 0.4 Myelocytes # 0.4 [place] Cells PRESENT Toxic Granulation PRESENT Toxic Vacuolation PRESENT Dohle Bodies PRESENT Platelet Estimate NORMAL Large Platelets PRESENT Plt Morphology Comment NOTED RBC Morphology NOTED Polychromasia 1+ (0-2) Hypochromasia 1+ (5-14) Basophilic Stippling 1+ (0-2) Microcytosis 1+ (5-14) Macrocytosis 1+ (5-14) Spherocytes 1+ (0-2) Target Cells 2+ (15-30) Tear Drop Cells 1+ (0-2) Ovalocytes 1+ (5-14) [place] Cells 1+ (0-2) Schistocytes 1+ (0-2) VBG pH 7.44 H VBG pCO2 25 VBG pO2 57 VBG HCO3 17 L VBG O2 Saturation 89.0 VBG Base Excess -4.9 Sodium 143 141 Potassium 3.5 3.6 Chloride 116 H 113 H Carbon Dioxide 19 L 18 L Anion Gap 12 14 BUN 25 H 27 H Creatinine 1.89 H 1.84 H Estim Creat Clear Calc 71.4 73.9 Estimated GFR 40 41 Random Glucose 143 H 143 H Calcium 9.2 9.6 Phosphorus 2.8 2.5 L Magnesium 2.5 2.7 H Total Bilirubin 11.8 H AST 121 H ALT 31 Alkaline Phosphatase 89 Total Protein 7.4 Albumin 3.8 Triglycerides 254 H Random Vancomycin 18.5 11.4 L 03/30/23 08:03 WBC RBC Hgb Hct MCV MCH MCHC RDW Plt Count MPV Immature Gran % (Auto) Neut % (Auto) Lymph % (Auto) [place] % (Auto) Eos % (Auto) Baso % (Auto) Lymph # (Auto) [place] # (Auto) Eos # (Auto) Baso # (Auto) Abs Immat Gran (auto) Absolute Neuts (auto) Absolute Nucleated RBC Nucleated RBC % (auto) Neutrophils % (Manual) Band Neutrophils % Lymphocytes % (Manual) Monocytes % (Manual) Eosinophils % (Manual) Basophils % (Manual) Metamyelocytes % Myelocytes % Abs Neuts (Manual) Lymphocytes # (Manual) Monocytes # (Manual) Eosinophils # (Manual) Basophils # (Manual) Metamyelocytes # Myelocytes # [place] Cells Toxic Granulation Toxic Vacuolation Dohle Bodies Platelet Estimate Large Platelets Plt Morphology Comment RBC Morphology Polychromasia Hypochromasia Basophilic Stippling Microcytosis Macrocytosis Spherocytes Target Cells Tear Drop Cells Ovalocytes Frank Cells Schistocytes VBG pH VBG pCO2 VBG pO2 VBG HCO3 VBG O2 Saturation VBG Base Excess Sodium Potassium Chloride Carbon Dioxide Anion Gap BUN Creatinine Estim Creat Clear Calc Estimated GFR Random Glucose Calcium Phosphorus Magnesium Total Bilirubin AST ALT Alkaline Phosphatase Total Protein Albumin Triglycerides Random Vancomycin 12.0 L Microbiology Microbiology Results: Microbiology 03/29/23 11:45 Sputum - Suctioned Gram Stain - Final 03/29/23 11:45 Sputum - Suctioned Sputum Culture - Preliminary Staphylococcus aureus Gram negative [place]ale 03/22/23 23:25 Blood - Venous Blood Culture - Final No growth after 5 days. 03/22/23 23:25 Blood - Venous Blood Culture - Final No growth after 5 days. 03/25/23 19:18 Blood - Venous Blood Culture - Preliminary No growth after 48 hours. 03/25/23 19:18 Blood - Venous Blood Culture - Preliminary No growth after 48 hours. Progress Note: A&P Assessment and plan (1) Hyperbilirubinemia: Status: Acute (2) Ileus: Status: Acute (3) Aspiration into airway: Status: Acute (4) Pulmonary edema: Status: Acute (5) Cardiopulmonary arrest with successful resuscitation: Status: Acute (6) Liver cirrhosis: Status: Acute (7) Encephalopathy, hepatic: Status: Acute Plan Assessment: 37-year-old gentleman admitted with alcohol intoxication on the background of degree cirrhosis with hospital course complicated by cardiopulmonary arrest secondary to pulmonary aspiration secondary to underlying ileus Plan: Neuro: Hepatic encephalopathy, continue lactulose. Poor arousal with sedation vacation, MRI brain normal on 03/28/2023. Cardiac: Cardiac arrest secondary to pulmonary aspiration. Continue to titrate off pressors as tolerated. 2D echo is normal. Pulmonary: Intubated during the CPR on the background of aspiration of gastric content. Continue to titrate off ventilatory support as tolerated. Renal: No acute issues. Endo: No acute issues. GI: Alcoholic liver cirrhosis with hyperbilirubinemia. Ileus, now s/p neostigmine with improvement of abdominal distension, improving. General surgery and gastroenterology services care appreciated. ID: aspiration ppneumonia after aspiration of gastric contents. Sputum growing Staphylococcus aureus and Gram-negative rods, continue with broad-spectrum antibiotics. Heme/Onc: No acute issues. Psych: No acute issues. Miscellaneous: No acute issues. Prophylaxis: Heparin, ppi Diet: TPN Critical care time spent: 60 minutes Quality Stroke Does the patient have a stroke diagnosis?: No VTE Prior VTE?: No VTE Risk Level:: Medical - moderate - high VTE Device Contraindication: N/A - Device Ordered VTE Drug Contraindication: Treatment Not Indicated
[2023-03-30] MEDS: vancomycin HCL 1,000 MG in 0.9 % Sodium Chloride 250 ML 270 MG IV ×2 (09:46→21:00)
[2023-03-30] MEDS: propofoL 1,000 MG/100 ML VIAL 27.6 MG IVCONT ×2 (10:56→17:40)
[2023-03-30] MEDS: dexmedeTOMIDidine HCL/NS 400 MCG/100 ML INFUS..BTL 30.55 MCG IVCONT ×2 (12:00→18:36)
[2023-03-30] MEDS: propofoL 1,000 MG/100 ML VIAL 20.7 MG IVCONT (13:58)
[2023-03-30] MEDS: Albuterol Sulfate (0.083%) 2.5 MG/3 ML VIAL.NEB INHALE ×3 (15:21→23:05)
[2023-03-30] MEDS: dexmedeTOMIDidine HCL/NS 400 MCG/100 ML INFUS..BTL 24.44 MCG IVCONT (15:32)
[2023-03-30] MEDS: Acetaminophen 1,000 MG/100 ML PIGGYBACK 400 MG IV (16:57)
[2023-03-30 19:33] LABS: Albumin Level 3.7 g/dL (3.5-5.0); Anion Gap 14 (12-20); Blood Urea Nitrogen 31 mg/dL (9-16); Calcium 9.4 mg/dL (8.4-10.2); Carbon Dioxide 17 mmol/L (22-29); Chloride 114 mmol/L (96-108); Creatinine Clr Calc Pharmacy 60.2; Estimated Glomerular Filt Rate 33; Glucose Random 138 mg/dL (60-115); Magnesium 2.6 mg/dL (1.6-2.6); Phosphorus 4.4 mg/dL (2.7-4.5); Potassium 4.3 mmol/L (3.3-5.1); Sodium 141 mmol/L (135-145)
[2023-03-30] MEDS: Parenteral Nutrition 2,280 ML 95 ML IV (20:28)
[2023-03-30] MEDS: propofoL 1,000 MG/100 ML VIAL 31.05 MG IVCONT ×2 (20:49→23:00)
[2023-03-30] MEDS: dexmedeTOMIDidine HCL/NS 400 MCG/100 ML INFUS..BTL 36.66 MCG IVCONT (21:46)
[2023-03-30] MEDS: Midazolam HCl/PF 2 MG/2 ML VIAL IVPUSH ×2 (21:46→23:05)
[2023-03-31] VITALS (34 sets, daily range): BP systolic 97–163; BP diastolic 53–88; PULSE 85–130; RESP 18–40; TEMP 34.7–38.9; O2SAT 89–96; BMI 36.2
[2023-03-31] MEDS: dexmedeTOMIDidine HCL/NS 400 MCG/100 ML INFUS..BTL 36.66 MCG IVCONT (00:19)
[2023-03-31] MEDS: Piperacillin Sodium/Tazobactam 4.5 GM in 0.9 % Sodium Chloride 100 ML IV ×2 (01:26→07:35)
[2023-03-31] MEDS: propofoL 1,000 MG/100 ML VIAL 27.6 MG IVCONT ×5 (01:30→22:16)
[2023-03-31] MEDS: Midazolam HCl/PF 2 MG/2 ML VIAL IVPUSH ×5 (02:02→12:16)
[2023-03-31] MEDS: Heparin Sodium,Porcine 5,000 UNIT/ML VIAL 5000 UNIT SUBCUT ×3 (03:17→18:03)
[2023-03-31] MEDS: dexmedeTOMIDidine HCL/NS 400 MCG/100 ML INFUS..BTL 30.55 MCG IVCONT ×2 (03:19→06:34)
[2023-03-31 05:22] LABS: VBG Base Excess -7.8 mmol/L; VBG HCO3 15 mmol/L (22-26); VBG pCO2 24 mmHg; VBG pO2 69 mmHg
[2023-03-31 05:37] LABS: Hematocrit 23.8 % (42.0-52.0); Hemoglobin 7.3 g/dl (14.0-18.0); Mean Corpuscular HGB Conc 30.7 g/dl (31.0-36.0); Mean Corpuscular Hemoglobin 29.9 pg (27.0-33.0); Mean Corpuscular Volume 97.5 fL (80.0-98.0); Mean Platelet Volume 11.6 fL (9.4-12.4); NRBC Pct Auto 0.1 /100WBC (0.0-0.2); Platelet Count 200 X10*3/uL (160-400); Red Blood Count 2.44 X10*6/uL (4.60-5.80); Red Cell Distribution Width 29.4 % (11.0-16.0); White Blood Count 16.1 X10*3/uL (4.8-10.8)
[2023-03-31 05:50] LABS: Venous Blood Gas Refer to POC result
[2023-03-31 06:03] LABS: Alanine Aminotransferase 27 U/L (0-40); Albumin Level 3.4 g/dL (3.5-5.0); Alkaline Phosphatase 89 U/L (39-117); Anion Gap 16 (12-20); Aspartate Amino Transferase 106 U/L (5-37); Blood Urea Nitrogen 38 mg/dL (9-16); Carbon Dioxide 15 mmol/L (22-29); Chloride 112 mmol/L (96-108); Estimated Glomerular Filt Rate 27; Glucose Random 150 mg/dL (60-115); Magnesium 2.7 mg/dL (1.6-2.6); Phosphorus 5.2 mg/dL (2.7-4.5); Potassium 3.9 mmol/L (3.3-5.1); Sodium 139 mmol/L (135-145); Total Protein 7.1 g/dL (6.5-8.0); Triglycerides 253 mg/dL (<150)
[2023-03-31 07:18] LABS: Band Neutrophils Percent 3 % (3-5); Basophils Abs Manual 0.5 X10*3/uL (0.0-0.2); Basophils Percent Manual 3 % (0-2); Eosinophils Absolute Manual 0.3 X10*3/uL (0.0-0.4); Eosinophils Percent Manual 2 % (0-4); Lymphocytes Absolute Manual 1.6 X10*3/uL (1.2-4.9); Lymphocytes Percent Manual 10 % (20-40); Metamyelocytes Absolute 0.3 X10*3/uL; Metamyelocytes Percent 2 %; Monocytes Absolute Manual 0.2 X10*3/uL (0.1-1.2); Monocytes Percent Manual 1 % (2-11); Neutrophils Absolute Manual 13.2 X10*3/uL (2.0-8.3); Neutrophils Percent Manual 79 % (45-73)
[2023-03-31 07:19] LABS: Macrocytosis 1+ (5-14) /OIF; RBC Morphology NOTED
[2023-03-31 07:20] LABS: Large Platelet PRESENT; Platelet Estimate NORMAL (NORMAL); Platelet Morphology Comment NORMAL; Spherocytes 1+ (0-2) /OIF; Target Cells 1+ (5-14) /OIF
[2023-03-31 07:21] LABS: Polychromasia 1+ (0-2) /OIF
[2023-03-31] MEDS: Lactulose 20 GM/30 ML SOLUTION 30 GM PO ×2 (07:35→14:37)
[2023-03-31] MEDS: Chlorhexidine Gluc Oral Rinse 15 ML MOUTHWASH BUCCAL ×3 (07:35→20:45)
[2023-03-31] MEDS: propofoL 1,000 MG/100 ML VIAL 34.5 MG IVCONT ×3 (08:01→14:32)
[2023-03-31 08:30] LABS: Vancomycin Trough 21.8 mcg/mL (10.0-20.0)
--- NOTE | 2023-03-31 08:41 | HE.PHANOTE ---
RE: ginny Patient's creatinine is worsening, trough on 03/31 came back at 21.8. Held AM dose, ordered another level for 2000 tonight. If clearing, decreased dose to 500mg Q12H with predicted trough of 13.3 mg/L, AUC 415 mg/L. Will adjust accordingly
[2023-03-31] MEDS: Albumin Human 25 % 100 ML IV ×3 (09:34→20:45)
[2023-03-31] MEDS: Bumetanide 1 MG/4 ML VIAL IVPUSH (09:46)
--- NOTE | 2023-03-31 09:54 | P.PNCC_ITS ---
Subjective Subjective Date of Service: 03/31/23 Interval History: 37-year-old gentleman with underlying history of alcohol abuse, liver cirrhosis, bipolar disorder MDD admitted on 03/21/2023 with alcohol intoxication. Hospital course significant for abdominal pain for which patient was evaluated by General surgery on 03/22/2023 with no concern for cholecystitis. Further hospital stay complicated by cardiac arrest secondary to pulmonary aspiration of bilious gastric content with returned spontaneous circulation achieved after 3 around of CPR with patient intubated during the CPR and transferred to intensive care unit. In the intensive care unit patient required re-intubation with a large ET tube. OG drained approximately 1 L of bilious fluid. CT abdomen/ pelvis demonstrated dilated bowel loops with no definite transition point. Re- evaluated by General surgery with p.o. contrast noted in colon, thus no intervention warranted at that time. Continues with significant cephalopathy and poor arousal with sedation vacation. MRI brain on 03/28/2023 is essentially normal. Overnight with worsening renal function. Critical Care Time (minutes): 60 Physical Exam 2 Vital Signs: Vital Signs: Last Vital Signs Temp 98.6 F 03/31/23 09:00 Pulse 95 03/31/23 09:00 Resp 18 03/31/23 09:00 BP 107/63 03/31/23 09:00 Pulse Ox 91 L 03/31/23 09:00 O2 Del Method Mechanical Ventil ation 03/31/23 09:00 O2 Flow Rate 50 03/24/23 08:52 FiO2 60 03/31/23 09:00 BMI result Body Mass Index 36.2 Const: General: no acute distress and other (jaundiced, no aroual with sedation vacation) Nutritional Appearance: Edematous Eyes: Sclerae: scleral abnormal (icteric) Neck: Neck: Yes no lymphadenopathy, Yes trachea midline and Yes supple Resp: Auscultation: crackles (bilateral) Cardio: Rate: tachycardic Rhythm: regular rhythm Heart sounds: no gallops, no murmurs and no rubs GI: Inspection: Yes distended Palpation (GI): Soft to palpation A uscultation: Hypoactive bowel sounds present Extrem: General: No clubbing, No cyanosis and Yes edema (2+ bilateral) Objective Data Labs 03/31/23 05:16 03/31/23 05:16 Labs: Laboratory Results - last 24 hr 11/03/31/23 03/31/23 19:13 05:16 08:05 WBC 16.1 H RBC 2.44 L Hgb 7.3 L Hct 23.8 L MCV 97.5 MCH 29.9 MCHC 30.7 L RDW 29.4 H Plt Count 200 MPV 11.6 Immature Gran % (Auto) Cancelled Neut % (Auto) Cancelled Lymph % (Auto) Cancelled [place] % (Auto) Cancelled Eos % (Auto) Cancelled Baso % (Auto) Cancelled Lymph # (Auto) Cancelled [place] # (Auto) Cancelled Eos # (Auto) Cancelled Baso # (Auto) Cancelled Abs Immat Gran (auto) Cancelled Absolute Neuts (auto) Cancelled Absolute Nucleated RBC 0.020 H Nucleated RBC % (auto) 0.1 Neutrophils % (Manual) 79 H Band Neutrophils % 3 Lymphocytes % (Manual) 10 L Monocytes % (Manual) 1 L Eosinophils % (Manual) 2 Basophils % (Manual) 3 H Metamyelocytes % 2 Abs Neuts (Manual) 13.2 H Lymphocytes # (Manual) 1.6 Monocytes # (Manual) 0.2 Eosinophils # (Manual) 0.3 Basophils # (Manual) 0.5 H Metamyelocytes # 0.3 Platelet Estimate NORMAL Large Platelets PRESENT Plt Morphology Comment NORMAL RBC Morphology NOTED Polychromasia 1+ (0-2) Macrocytosis 1+ (5-14) Spherocytes 1+ (0-2) Target Cells 1+ (5-14) VBG pH 7.40 VBG pCO2 24 VBG pO2 69 VBG HCO3 15 L VBG O2 Saturation 93.0 VBG Base Excess -7.8 Sodium 141 139 Potassium 4.3 3.9 Chloride 114 H 112 H Carbon Dioxide 17 L 15 L Anion Gap 14 16 BUN 31 H 38 H Creatinine 2.26 H 2.64 H Estim Creat Clear Calc 60.2 51.0 Estimated GFR 33 27 Random Glucose 138 H 150 H Calcium 9.4 9.0 Phosphorus 4.4 5.2 H Magnesium 2.6 2.7 H Total Bilirubin 12.0 H AST 106 H ALT 27 Alkaline Phosphatase 89 Total Protein 7.1 Albumin 3.7 3.4 L Triglycerides 253 H Vancomycin Trough 21.8 H Microbiology Microbiology Results: Microbiology 03/29/23 11:45 Sputum - Suctioned Gram Stain - Final 03/29/23 11:45 Sputum - Suctioned Sputum Culture - Final Staphylococcus aureus Escherichia coli 03/25/23 19:18 Blood - Venous Blood Culture - Final No growth after 5 days. 03/25/23 19:18 Blood - Venous Blood Culture - Final No growth after 5 days. 03/22/23 23:25 Blood - Venous Blood Culture - Final No growth after 5 days. 03/22/23 23:25 Blood - Venous Blood Culture - Final No growth after 5 days. Progress Note: A&P Assessment and plan (1) TILA (acute kidney injury): Status: Acute (2) Hyperbilirubinemia: Status: Acute (3) Ileus: Status: Acute (4) Aspiration into airway: Status: Acute (5) Pulmonary edema: Status: Acute (6) Liver cirrhosis: Status: Acute (7) Encephalopathy, hepatic: Status: Acute (8) Cardiopulmonary arrest with successful resuscitation: Status: Acute Plan Assessment: 37-year-old gentleman admitted with alcohol intoxication on the background of degree cirrhosis with hospital course complicated by cardiopulmonary arrest secondary to pulmonary aspiration secondary to underlying ileus Plan: Neuro: Hepatic encephalopathy, continue lactulose. Poor arousal with sedation vacation, MRI brain normal on 03/28/2023. Cardiac: Cardiac arrest secondary to pulmonary aspiration. Continue to titrate off pressors as tolerated. 2D echo is normal. Pulmonary: Intubated during the CPR on the background of aspiration of gastric content. Continue to titrate off ventilatory support as tolerated. Renal: acute kidney injury, non oliguric. Nephrology evaluation requested. Continue to monitor renal indices and urine output. Endo: No acute issues. GI: Alcoholic liver cirrhosis with hyperbilirubinemia. Ileus, now s/p neostigmine x2 with improvement of abdominal distension, improving. General surgery and gastroenterology services care appreciated. ID: aspiration ppneumonia after aspiration of gastric contents. Sputum growing Staphylococcus aureus and Gram-negative rods, narrow antibiotics to ceftriaxone. Heme/Onc: No acute issues. Psych: No acute issues. Miscellaneous: No acute issues. Prophylaxis: Heparin, ppi Diet: TPN Critical care time spent: 60 minutes Quality Stroke Does the patient have a stroke diagnosis?: No VTE Prior VTE?: No VTE Risk Level:: Medical - moderate - high VTE Device Contraindication: N/A - Device Ordered VTE Drug Contraindication: Treatment Not Indicated
[2023-03-31] MEDS: cefTRIAXone sodium 1 GM in 0.9 % Sodium Chloride 50 ML IV (10:39)
[2023-03-31] MEDS: Albuterol Sulfate (0.083%) 2.5 MG/3 ML VIAL.NEB INHALE ×2 (11:08→20:07)
--- NOTE | 2023-03-31 13:24 | MHC.CM.PN ---
Pt continues care in ICU: intubated w/FiO2 >50%. No improvement in cognition despite essentially normal MRI. CM to follow for finalization of d/c plans
[2023-03-31] MEDS: Acetaminophen 1,000 MG/100 ML PIGGYBACK 400 MG IV (13:38)
[2023-03-31 19:47] LABS: Hematocrit 23.5 % (42.0-52.0); Hemoglobin 7.2 g/dl (14.0-18.0); Mean Corpuscular HGB Conc 30.6 g/dl (31.0-36.0); Mean Corpuscular Hemoglobin 29.9 pg (27.0-33.0); Mean Corpuscular Volume 97.5 fL (80.0-98.0); Mean Platelet Volume 11.6 fL (9.4-12.4); NRBC Pct Auto 0.2 /100WBC (0.0-0.2); Platelet Count 222 X10*3/uL (160-400); Red Blood Count 2.41 X10*6/uL (4.60-5.80); Red Cell Distribution Width 28.9 % (11.0-16.0); White Blood Count 22.2 X10*3/uL (4.8-10.8)
[2023-03-31 20:07] LABS: Band Neutrophils Percent 4 % (3-5); Basophils Abs Manual 0.4 X10*3/uL (0.0-0.2); Basophils Percent Manual 2 % (0-2); Eosinophils Absolute Manual 1.1 X10*3/uL (0.0-0.4); Eosinophils Percent Manual 5 % (0-4); Lymphocytes Absolute Manual 1.1 X10*3/uL (1.2-4.9); Lymphocytes Percent Manual 5 % (20-40); Monocytes Absolute Manual 0.7 X10*3/uL (0.1-1.2); Monocytes Percent Manual 3 % (2-11); Neutrophils Absolute Manual 18.9 X10*3/uL (2.0-8.3); Neutrophils Percent Manual 81 % (45-73)
[2023-03-31 20:09] LABS: RBC Morphology NOTED
[2023-03-31 20:10] LABS: Dohle Bodies PRESENT; Toxic Granulation PRESENT; Toxic Vacuolation PRESENT
[2023-03-31 20:11] LABS: Hypochromasia 1+ (5-14) /OIF; Macrocytosis 1+ (5-14) /OIF; Ovalocytes 1+ (5-14) /OIF; Platelet Estimate NORMAL (NORMAL); Target Cells 1+ (5-14) /OIF
[2023-03-31 20:12] LABS: Platelet Morphology Comment NORMAL
[2023-03-31 20:14] LABS: Polychromasia 1+ (0-2) /OIF; Schistocytes 1+ (0-2) /OIF; Spherocytes 1+ (0-2) /OIF
[2023-03-31] MEDS: Parenteral Nutrition 2,280 ML 95 ML IV (20:45)
[2023-04-01] VITALS (37 sets, daily range): BP systolic 107–128; BP diastolic 50–69; PULSE 89–123; RESP 20–51; TEMP 35–39.5; O2SAT 88–94; BMI 36.5
[2023-04-01] MEDS: propofoL 1,000 MG/100 ML VIAL 27.6 MG IVCONT ×8 (01:17→22:41)
[2023-04-01] MEDS: Albumin Human 25 % 100 ML IV (03:02)
[2023-04-01] MEDS: Heparin Sodium,Porcine 5,000 UNIT/ML VIAL 5000 UNIT SUBCUT (03:03)
[2023-04-01] MEDS: Acetaminophen 1,000 MG/100 ML PIGGYBACK 400 MG IV ×2 (04:23→15:06)
[2023-04-01 04:39] LABS: VBG Base Excess -7.7 mmol/L; VBG HCO3 17 mmol/L (22-26); VBG pCO2 31 mmHg; VBG pH 7.33 (7.32-7.43); VBG pO2 66 mmHg
[2023-04-01 04:42] LABS: Venous Blood Gas Refer to POC result
[2023-04-01 04:45] LABS: Hematocrit 21.9 % (42.0-52.0); Mean Corpuscular HGB Conc 29.7 g/dl (31.0-36.0); Mean Corpuscular Hemoglobin 29.4 pg (27.0-33.0); Mean Corpuscular Volume 99.1 fL (80.0-98.0); Mean Platelet Volume 11.8 fL (9.4-12.4); NRBC Pct Auto 0.2 /100WBC (0.0-0.2); Platelet Count 202 X10*3/uL (160-400); Red Blood Count 2.21 X10*6/uL (4.60-5.80); Red Cell Distribution Width 29.1 % (11.0-16.0); White Blood Count 20.1 X10*3/uL (4.8-10.8)
[2023-04-01 04:49] LABS: Hemoglobin 6.5 g/dl (14.0-18.0)
[2023-04-01 05:04] LABS: Band Neutrophils Percent 5 % (3-5); Basophils Abs Manual 0.2 X10*3/uL (0.0-0.2); Basophils Percent Manual 1 % (0-2); Lymphocytes Absolute Manual 0.6 X10*3/uL (1.2-4.9); Lymphocytes Percent Manual 3 % (20-40); Metamyelocytes Absolute 0.2 X10*3/uL; Metamyelocytes Percent 1 %; Monocytes Absolute Manual 1.8 X10*3/uL (0.1-1.2); Monocytes Percent Manual 9 % (2-11); Myelocytes Absolute 0.2 X10*/uL; Myelocytes Percent 1 %; Neutrophils Absolute Manual 17.1 X10*3/uL (2.0-8.3); Neutrophils Percent Manual 80 % (45-73)
[2023-04-01 05:05] LABS: Macrocytosis 1+ (5-14) /OIF; Ovalocytes 1+ (5-14) /OIF; Platelet Estimate NORMAL (NORMAL); Platelet Morphology Comment NORMAL; RBC Morphology NOTED; Target Cells 1+ (5-14) /OIF; Tear Drop Cells 1+ (0-2) /OIF
[2023-04-01 05:06] LABS: Polychromasia 1+ (0-2) /OIF; Toxic Granulation PRESENT
[2023-04-01 05:14] LABS: Alanine Aminotransferase 28 U/L (0-40); Alkaline Phosphatase 69 U/L (39-117); Anion Gap 17 (12-20); Aspartate Amino Transferase 96 U/L (5-37); Bilirubin Total 11.9 mg/dL (0.0-1.0); Blood Urea Nitrogen 46 mg/dL (9-16); Calcium 8.7 mg/dL (8.4-10.2); Carbon Dioxide 17 mmol/L (22-29); Chloride 111 mmol/L (96-108); Creatinine Clr Calc Pharmacy 53.8; Estimated Glomerular Filt Rate 29; Glucose Random 156 mg/dL (60-115); Magnesium 2.6 mg/dL (1.6-2.6); Phosphorus 3.8 mg/dL (2.7-4.5); Sodium 141 mmol/L (135-145); Total Protein 7.5 g/dL (6.5-8.0); Triglycerides 248 mg/dL (<150)
[2023-04-01] MEDS: Chlorhexidine Gluc Oral Rinse 15 ML MOUTHWASH BUCCAL ×3 (07:25→20:25)
[2023-04-01] MEDS: Lactulose 20 GM/30 ML SOLUTION 30 GM PO ×3 (07:25→20:26)
--- NOTE | 2023-04-01 07:28 | PM.CCPN ---
Subjective Subjective Date of Service: 04/01/23 Critical Care Time (minutes): 90 Physical Exam Vital Signs: Vital Signs: Last Vital Signs Temp 101.8 F H 04/01/23 07:00 Pulse 119 H 04/01/23 07:00 Resp 20 04/01/23 07:00 BP 115/61 04/01/23 07:00 Pulse Ox 88 L 04/01/23 07:00 O2 Del Method Mechanical Ventil ation 04/01/23 07:00 O2 Flow Rate 50 03/24/23 08:52 FiO2 65 04/01/23 07:00 BMI result Body Mass Index 36.5 Const: Other: intubated, sedated; appreciably jaundiced throughout General: no acute distress and ill appearing HEENT: Head: Yes normal to inspection, Yes normocephalic and Yes atraumatic Eyes: Other: eyes appreciably jaundiced Neck: Neck: Yes full ROM, Yes no meningeal signs and Yes supple Chest: Chest palpation & inspection: normal inspection of the chest Resp: Other: some appreciable rhonchi; no appreciable rales, wheezing Cardio: Rate: regular rate Rhythm: regular rhythm GI: Other: distended, though compressible; no appreciable tenderness to palpation, guarding, rebound; appreciable caput medusae throughout Skin: Other: jaundice as described Neuro: Other: sedated; no spontaneous eye opening, movements throughout General: no meningeal signs Extrem: Other: gross anasarca throughout General: Yes normal to inspection and Yes capillary refill normal Psych: Other: unable to assess Objective Data Labs 04/01/23 04:32 04/01/23 04:32 Labs: Laboratory Results - last 24 hr 03/31/23 03/31/23 04/01/23 08:05 19:41 04:32 WBC 22.2 H 20.1 H RBC 2.41 L 2.21 L Hgb 7.2 L 6.5 L* Hct 23.5 L 21.9 L MCV 97.5 99.1 H MCH 29.9 29.4 MCHC 30.6 L 29.7 L RDW 28.9 H 29.1 H Plt Count 222 202 MPV 11.6 11.8 Immature Gran % (Auto) Cancelled Cancelled Neut % (Auto) Cancelled Cancelled Lymph % (Auto) Cancelled Cancelled [place] % (Auto) Cancelled Cancelled Eos % (Auto) Cancelled Cancelled Baso % (Auto) Cancelled Cancelled Lymph # (Auto) Cancelled Cancelled [place] # (Auto) Cancelled Cancelled Eos # (Auto) Cancelled Cancelled Baso # (Auto) Cancelled Cancelled Abs Immat Gran (auto) Cancelled Cancelled Absolute Neuts (auto) Cancelled Cancelled Absolute Nucleated RBC 0.040 H 0.050 H Nucleated RBC % (auto) 0.2 0.2 Neutrophils % (Manual) 81 H 80 H Band Neutrophils % 4 5 Lymphocytes % (Manual) 5 L 3 L Monocytes % (Manual) 3 9 Eosinophils % (Manual) 5 H Basophils % (Manual) 2 1 Metamyelocytes % 1 Myelocytes % 1 Abs Neuts (Manual) 18.9 H 17.1 H Lymphocytes # (Manual) 1.1 L 0.6 L Monocytes # (Manual) 0.7 1.8 H Eosinophils # (Manual) 1.1 H Basophils # (Manual) 0.4 H 0.2 Metamyelocytes # 0.2 Myelocytes # 0.2 Toxic Granulation PRESENT PRESENT Toxic Vacuolation PRESENT Dohle Bodies PRESENT Platelet Estimate NORMAL NORMAL Plt Morphology Comment NORMAL NORMAL RBC Morphology NOTED NOTED Polychromasia 1+ (0-2) 1+ (0-2) Hypochromasia 1+ (5-14) Macrocytosis 1+ (5-14) 1+ (5-14) Spherocytes 1+ (0-2) Target Cells 1+ (5-14) 1+ (5-14) Tear Drop Cells 1+ (0-2) Ovalocytes 1+ (5-14) 1+ (5-14) Schistocytes 1+ (0-2) VBG pH 7.33 VBG pCO2 31 VBG pO2 66 VBG HCO3 17 L VBG O2 Saturation 91.0 VBG Base Excess -7.7 Sodium 141 Potassium 4.0 Chloride 111 H Carbon Dioxide 17 L Anion Gap 17 BUN 46 H Creatinine 2.50 H Estim Creat Clear Calc 53.8 Estimated GFR 29 Random Glucose 156 H Calcium 8.7 Phosphorus 3.8 Magnesium 2.6 Total Bilirubin 11.9 H AST 96 H ALT 28 Alkaline Phosphatase 69 Total Protein 7.5 Albumin 4.0 Triglycerides 248 H Vancomycin Trough 21.8 H Blood Type O Positive Antibody Screen NEGATIVE Crossmatch See Detail Microbiology Microbiology Results: Microbiology 03/29/23 11:45 Sputum - Suctioned Gram Stain - Final 03/29/23 11:45 Sputum - Suctioned Sputum Culture - Final Staphylococcus aureus Escherichia coli 03/25/23 19:18 Blood - Venous Blood Culture - Final No growth after 5 days. 03/25/23 19:18 Blood - Venous Blood Culture - Final No growth after 5 days. 03/22/23 23:25 Blood - Venous Blood Culture - Final No growth after 5 days. 03/22/23 23:25 Blood - Venous Blood Culture - Final No growth after 5 days. Progress Note: A&P Assessment and plan (1) TILA (acute kidney injury): Status: Acute (2) Aspiration of gastric contents: Status: Acute (3) Liver cirrhosis: Status: Acute (4) Alcoholic liver disease: Status: Acute (5) Encephalopathy, hepatic: Status: Acute (6) Ileus: Status: Acute Plan Patient is a 37 Y M with alcohol misuse c/b cirrhosis, psychiatric comorbidities, admitted 03/21 w/ alcohol intoxication; hospital course c/b ileus, c/b aspiration, c/b hypoxic cardiac arrest, as well as persistent encephalopathy, acute renal insufficiency N: encephalopathy, likely toxic-metabolic; to continue lactulose stool output goal 2 L per day if possible CV: prior hypoxic cardiac arrest, hypotension, resolved R: aspiration pneumonia, c/b hypoxic cardiac arrest; intubated; wean ventilator as tolerated GI: ileus; appreciate gastroenterology and surgery recommendations; alcohol misuse c/b cirrhosis : acute renal insufficiency, non-oligouric; appreciate nephrology recommendations H: anemia; possible GI source; to continue to monitor; to hold DVT prophylaxis ID: aspiration pneumonia; ceftriaxone P: no acute issues Quality Stroke Does the patient have a stroke diagnosis?: No VTE Prior VTE?: No VTE Risk Level:: Medical - moderate - high VTE Device Contraindication: N/A - Device Ordered VTE Drug Contraindication: Treatment Not Tolerated
[2023-04-01] MEDS: Bumetanide 1 MG/4 ML VIAL IVPUSH ×2 (07:56→16:37)
[2023-04-01 08:12] LABS: Ammonia 102 umol/L (13-55)
[2023-04-01 08:16] LABS: INTERNATIONAL NORM RATIO 1.5 (0.9-1.1); Prothrombin Time 18.8 SEC (11.1-13.3)
--- NOTE | 2023-04-01 09:51 | PM.CNNEP ---
History of Present Illness Reason for Consult Consult date: 04/02/23 Reason for consult: TILA Chief Complaint Chief complaint: COVID Test History of Present Illness Narrative: 37-year-old man with underlying history of alcohol abuse, liver cirrhosis, bipolar disorder MDD admitted on 03/21/2023 with alcohol intoxication. Hospital course significant for abdominal pain for which patient was evaluated by General surgery on 03/22/2023 with no concern for cholecystitis. Further hospital stay complicated by cardiac arrest secondary to pulmonary aspiration of bilious gastric content with returned spontaneous circulation achieved after 3 around of CPR with patient intubated during the CPR and transferred to intensive care unit. In the intensive care unit patient required re-intubation with a large ET tube. OG drained approximately 1 L of bilious fluid. Baseline serum creatinine was normal at 0.98. Serum creatinine peaked at 2.64 on 03/31. Today creatinine is 2.5. He is currently nonoliguric. Vanco level is elevated today at 21. Review of Systems Review of Systems Unable to obtain since he is intubated PMF Past Medical History Medical History Obese Annual physical exam Elevated LFTs Screening for hypothyroidism Screening for hypercholesterolemia Screening for diabetes mellitus (DM) History of epididymitis Erectile dysfunction Orchalgia Frequency of urination Anxiety Erectile dysfunction Chronic lower back pain Fibromyalgia Family History Family History Father Osteoarthritis HTN (hypertension) Heart attack, Onset Age: 67 Mother No problems noted. Brother IBS (irritable bowel syndrome) Other Mental health disorder Surgical History Surgical History History of shoulder surgery Social History Household Members: Significant Other Household Members Other:: girlfriend, Veda Housing: House Do you presently have visiting nurse or other home services: No Alcohol intake: current Alcohol intake frequency: 3 or more drinks per day Alcohol type: hard liquor Patient Tobacco Use Status: Former Tobacco user Tobacco use type: Cigar e-Cigarette/Vaping Use: Former Use Second Hand Smoke Exposure: No Substance Use Type: Marijuana service: No Current occupational status: employed 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 Cognitive needs: No Hearing needs: No Vision needs: No Meds Allergies Allergy/AdvReac Type Severity Reaction Status Date / Time No Known Allergies Allergy Mild NONE Verified 03/21/23 11:26 Active Medications: Current Medications Albuterol Sulfate (Albuterol Sulfate (0.083%) 2.5 Mg/3 Ml Vial.Neb) 2.5 mg INHALE Q2H PRN PRN Reason: Wheezing Last Admin: 03/31/23 20:07 Dose: 2.5 mg Bumetanide (Bumetanide 1 Mg/4 Ml Vial) 1 mg IVPUSH BID@0900,1700 [facility]; Protocol Last Admin: 04/01/23 07:56 Dose: 1 mg Chlorhexidine Gluconate (Chlorhexidine Gluc Oral Rinse 15 Ml Mouthwash) 15 ml BUCCAL TID MEÑO Last Admin: 04/01/23 07:25 Dose: 15 ml Heparin Sodium (Porcine) (Heparin Sodium,Porcine 5,000 Unit/Ml Vial) 5,000 unit SUBCUT Q8H MEÑO Last Admin: 04/01/23 03:03 Dose: 5,000 unit Propofol (Diprivan) 1,000 mg in 100 mls @ 0 mls/hr IVCONT .Q0M [facility]; Protocol Last Admin: 04/01/23 06:15 Dose: 40 mcg/kg/min, 27.6 mls/hr Ceftriaxone Sodium 1 gm/ (Sodium Chloride) 50 mls @ 100 mls/hr IV Q24H MEÑO Last Infusion: 03/31/23 11:13 Dose: Infused Nutrition (Parenteral) (Parenteral Nutrition) 2,280 mls @ 95 mls/hr IV .Q24H [facility]; Protocol Stop: 04/01/23 20:59 Last Admin: 03/31/23 20:45 Dose: 95 mls/hr Fentanyl (Sublimaze/Ns) 1,000 mcg in 100 mls @ 0 mls/hr IVCONT .Q0M [facility]; Protocol Lactulose (Lactulose 20 Gm/30 Ml Solution) 30 gm PO TID MEÑO Last Admin: 04/01/23 07:25 Dose: 30 gm Midazolam HCl (Midazolam Hcl/Pf 2 Mg/2 Ml Vial) 2 mg IVPUSH Q15M PRN PRN Reason: Ventilator synchrony Last Admin: 03/31/23 12:16 Dose: 2 mg Morphine Sulfate (Morphine Sulfate 4 Mg/Ml Cartridge) 2 mg IVPUSH Q4H PRN; Protocol PRN Reason: Pain, Severe (Pain Scale 7-10) Last Admin: 03/22/23 15:59 Dose: 2 mg Naloxone HCl (Naloxone Hcl 0.4 Mg/Ml Vial) 0.2 mg IVPUSH Q2M PRN PRN Reason: Excessive sedation or RR < 8 Pantoprazole Sodium (Pantoprazole Sodium 40 Mg/10 Ml Vial) 40 mg IVPUSH BID@0630,1630 [facility] Pharmacy Consult (Consult Rx Parenteral Nutrition Ordering) 1 each MISCELLANE DAILY PRN PRN Reason: Consult order Sodium Chloride (0.9 % Sodium Chloride Flush 3 Ml Syringe) 3 ml IVFLUSH QSHIFT [facility] Last Admin: 03/22/23 16:00 Dose: 3 ml Home Medications Medication Instructions Recorded Confirmed Last Taken Type propranolol 10 mg tablet 10 mg PO BID PRN Anxiety 10/17/22 03/21/23 Unknown History albuterol sulfate 90 mcg/actuation 1 puff PO QID PRN Shortness Of 03/21/23 03/21/23 Unknown History aerosol inhaler Breath Or Wheezing betamethasone dipropionate 0.05 % 1 appl topical DAILY PRN Rash 03/21/23 03/21/23 Unknown History topical cream sennosides 8.6 mg tablet (senna) 8.6 mg PO BEDTIME PRN constipation 03/21/23 03/21/23 Unknown History Physical Exam Vital Signs: Last Vital Signs Temp 102.2 F H 04/01/23 09:00 Pulse 119 H 04/01/23 09:00 Resp 29 H 04/01/23 09:00 BP 112/56 L 04/01/23 09:00 Pulse Ox 89 L 04/01/23 09:00 O2 Del Method Mechanical Ventilation 04/01/23 09:00 O2 Flow Rate 50 03/24/23 08:52 FiO2 65 04/01/23 09:00 BMI result Body Mass Index 36.5 Const General: ill appearing Neck Neck: Yes no meningeal signs and Yes supple Resp Auscultation: rhonchi Cardio Jugular venous distension: no JVD GI Palpation (GI): Soft to palpation Neuro General: no meningeal signs Cranial nerves: Yes Nystagmus not present Results Lab Results 04/02/23 04:28 04/02/23 04:28 Lab results: Chemistry 03/29/23 03/30/23 03/30/23 20:10 05:11 19:13 Sodium 143 141 141 Potassium 3.5 3.6 4.3 Carbon Dioxide 19 L 18 L 17 L BUN 25 H 27 H 31 H Creatinine 1.89 H 1.84 H 2.26 H Calcium 9.2 9.6 9.4 Phosphorus 2.8 2.5 L 4.4 03/31/23 04/01/23 05:16 04:32 Sodium 139 141 Potassium 3.9 4.0 Carbon Dioxide 15 L 17 L BUN 38 H 46 H Creatinine 2.64 H 2.50 H Calcium 9.0 8.7 Phosphorus 5.2 H 3.8 Hematology 03/30/23 03/31/23 03/31/23 05:11 05:16 19:41 WBC 20.4 H 16.1 H 22.2 H Hgb 7.5 L 7.3 L 7.2 L Plt Count 230 200 222 04/01/23 04:32 WBC 20.1 H Hgb 6.5 L* Plt Count 202 Assessment and Plan (1) TILA (acute kidney injury): Status: Acute (2) Metabolic acidosis: Status: Acute (3) Anemia: Status: Acute Plan 37-year-old man with a history of cardiac arrest currently his acute kidney injury most likely due to ischemic ATN. No evidence of obstruction. No reasonably has any active glomerulonephritis or interstitial disease. Nevertheless we will rule this out. He is at high risk for vanco induced tubular injury. He is critically ill and intubated. Recommendation Check urine for protein, creatinine, sodium and UA. If he has significant proteinuria will proceed with further workup. Watch urine output closely. Keep intake more than output. Avoid hypotension and continue to avoid nephrotoxins. At present is no absolute indication for dialysis. Concur with current medical management and will follow along with the team. Procedures Date of Service Date of Service: 04/02/23
[2023-04-01] MEDS: Lactulose 320 GM/480 ML SOLUTION 200 GM PR ×3 (10:00→22:30)
--- NOTE | 2023-04-01 10:01 | MHC.CLN ---
F/U PT REMAINS INTUBATED AND SEDATED DISCUSSED AT ROUNDS WITH MD DISCUSSED WITH PHARMACY PPN TO CONTINUE AT 95ML/HR PROVIDES 1163KCALS (1892KCALS WITH SEDATION, 23 KCALS/KG IBW), 228G DEXTROSE, 97G PROTEIN (1,2 G/KG IBW) REPLETE LYTES NEEDED
[2023-04-01] MEDS: fentaNYL citrate/NS 1,000 MCG/100 ML PLAST..BAG 2.5 MCG IVCONT (10:20)
[2023-04-01] MEDS: cefTRIAXone sodium 1 GM in 0.9 % Sodium Chloride 50 ML IV (10:57)
[2023-04-01 11:58] LABS: Appearance Urine Clear; Color Urine Dark Yellow; Glucose Urine UA Negative (Negative); Leukocyte Esterase Urine Negative (Negative); Nitrite Urine Negative (Negative); PH 5.5 (5.0-9.0); UMIC TRIGGER UA YES; Urine Blood Moderate (2+) (Negative); Urine Ketones Negative (Negative); Urine Protein Trace mg/dL (Neg-Trace)
[2023-04-01 12:08] LABS: Bacteria Urine None Seen (None Seen); WBC Urine 0-5 /HPF (0-5)
[2023-04-01 12:37] LABS: Creatinine Urine 108.79 mg/dL; Sodium Urine Random < 20.0 mmol/L; Total Protein Urine Random 28 mg/dL (<12)
[2023-04-01] MEDS: Glycopyrrolate 0.2 MG/ML VIAL IVPUSH (14:32)
[2023-04-01] MEDS: Albuterol Sulfate 2.5 MG, Albuterol Sulfate (0.083%) 2.5 MG 5 MG INHALE (14:42)
[2023-04-01] MEDS: Pantoprazole Sodium 40 MG/10 ML VIAL IVPUSH (15:27)
[2023-04-01 18:22] LABS: Magnesium 2.3 mg/dL (1.6-2.6); Phosphorus 2.9 mg/dL (2.7-4.5)
[2023-04-01 19:51] LABS: Hematocrit 23.2 % (42.0-52.0); Hemoglobin 7.2 g/dl (14.0-18.0)
[2023-04-01 20:51] LABS: OBS Int Ctl Valid YES; OBS1 POSITIVE (NEGATIVE)
[2023-04-01] MEDS: Parenteral Nutrition 2,280 ML 95 ML IV (20:53)
[2023-04-02] VITALS (32 sets, daily range): BP systolic 118–156; BP diastolic 55–89; PULSE 102–120; RESP 29–41; TEMP 34.9–39.3; O2SAT 92–97; BMI 31.2
[2023-04-02] MEDS: propofoL 1,000 MG/100 ML VIAL 27.6 MG IVCONT ×3 (01:25→08:03)
[2023-04-02] MEDS: Lactulose 320 GM/480 ML SOLUTION 200 GM PR ×3 (03:26→22:15)
[2023-04-02 04:41] LABS: Hemoglobin 7.4 g/dl (14.0-18.0); Mean Corpuscular HGB Conc 30.8 g/dl (31.0-36.0); Mean Corpuscular Hemoglobin 30.1 pg (27.0-33.0); Mean Corpuscular Volume 97.6 fL (80.0-98.0); Mean Platelet Volume 11.9 fL (9.4-12.4); NRBC Pct Auto 0.2 /100WBC (0.0-0.2); Platelet Count 204 X10*3/uL (160-400); Red Blood Count 2.46 X10*6/uL (4.60-5.80); Red Cell Distribution Width 28.2 % (11.0-16.0); White Blood Count 19.1 X10*3/uL (4.8-10.8)
[2023-04-02 04:42] LABS: VBG Base Excess -7.6 mmol/L; VBG HCO3 16 mmol/L (22-26); VBG pCO2 28 mmHg; VBG pH 7.37 (7.32-7.43); VBG pO2 77 mmHg
[2023-04-02 04:43] LABS: Venous Blood Gas Refer to POC result
[2023-04-02 04:54] LABS: Albumin Level 3.7 g/dL (3.5-5.0); Anion Gap 15 (12-20); Blood Urea Nitrogen 56 mg/dL (9-16); Calcium 8.9 mg/dL (8.4-10.2); Carbon Dioxide 17 mmol/L (22-29); Chloride 115 mmol/L (96-108); Creatinine Clr Calc Pharmacy 60.6; Estimated Glomerular Filt Rate 33; Glucose Random 160 mg/dL (60-115); Magnesium 2.4 mg/dL (1.6-2.6); Phosphorus 2.6 mg/dL (2.7-4.5); Potassium 2.8 mmol/L (3.3-5.1); Sodium 144 mmol/L (135-145); Triglycerides 284 mg/dL (<150)
[2023-04-02 04:59] LABS: Band Neutrophils Percent 5 % (3-5); Basophils Abs Manual 0.4 X10*3/uL (0.0-0.2); Basophils Percent Manual 2 % (0-2); Eosinophils Absolute Manual 0.4 X10*3/uL (0.0-0.4); Eosinophils Percent Manual 2 % (0-4); Lymphocytes Absolute Manual 2.5 X10*3/uL (1.2-4.9); Lymphocytes Percent Manual 13 % (20-40); Macrocytosis 1+ (5-14) /OIF; Monocytes Absolute Manual 1.3 X10*3/uL (0.1-1.2); Monocytes Percent Manual 7 % (2-11); Neutrophils Absolute Manual 14.5 X10*3/uL (2.0-8.3); Neutrophils Percent Manual 71 % (45-73); Ovalocytes 1+ (5-14) /OIF; Platelet Estimate NORMAL (NORMAL); Platelet Morphology Comment NORMAL; RBC Morphology NOTED; Schistocytes 1+ (0-2) /OIF
[2023-04-02 05:00] LABS: Hypochromasia 1+ (5-14) /OIF; Polychromasia 1+ (0-2) /OIF; Spherocytes 1+ (0-2) /OIF; Target Cells 1+ (5-14) /OIF; Tear Drop Cells 1+ (0-2) /OIF; Toxic Vacuolation PRESENT
[2023-04-02] MEDS: Potassium Chloride/H20 10 MEQ/100 ML PIGGYBACK 100 MEQ IV ×4 (05:17→09:45)
[2023-04-02] MEDS: Pantoprazole Sodium 40 MG/10 ML VIAL IVPUSH ×2 (06:19→15:31)
--- NOTE | 2023-04-02 08:04 | PM.CCPN ---
Subjective Subjective Date of Service: 04/02/23 Interval History: no significant overnight events Critical Care Time (minutes): 90 Physical Exam Vital Signs: Vital Signs: Last Vital Signs Temp 101.3 F H 04/02/23 07:00 Pulse 112 H 04/02/23 07:00 Resp 34 H 04/02/23 07:00 BP 139/71 04/02/23 07:00 Pulse Ox 97 04/02/23 07:00 O2 Del Method Mechanical Ventil ation 04/02/23 07:00 O2 Flow Rate 50 03/24/23 08:52 FiO2 60 04/02/23 07:30 BMI result Body Mass Index 36.5 Const: Other: intubated, sedated; visibly jaundiced General: no acute distress HEENT: Head: Yes normal to inspection, Yes normocephalic and Yes atraumatic Eyes: General: appearance normal, both eyes and all related structures Neck: Neck: Yes normal visual inspection, Yes full ROM and Yes supple Chest: Chest palpation & inspection: normal inspection of the chest Resp: Other: some appreciable rhonchi; no appreciable rales, wheezing Cardio: Rate: tachycardic Rhythm: regular rhythm GI: Other: distended, though compressible; no appreciable bowel sounds throughout; no appreciable guarding, rebound Skin: Other: jaundiced, as described General skin exam: no rashes or lesions noted Neuro: Other: intubated, sedated; no spontaneous eye opening, movements Extrem: Other: appreciable anasarca, mildly improved from yesterday General: Yes full ROM and Yes capillary refill normal Psych: Other: unable to assess Objective Data Labs 04/02/23 04:28 04/02/23 04:28 Labs: Laboratory Results - last 24 hr 03/31/23 04/01/23 04/01/23 19:41 08:02 11:45 WBC RBC Hgb Hct MCV MCH MCHC RDW Plt Count MPV Immature Gran % (Auto) Neut % (Auto) Lymph % (Auto) [place] % (Auto) Eos % (Auto) Baso % (Auto) Lymph # (Auto) [place] # (Auto) Eos # (Auto) Baso # (Auto) Abs Immat Gran (auto) Absolute Neuts (auto) Absolute Nucleated RBC Nucleated RBC % (auto) Neutrophils % (Manual) Band Neutrophils % Lymphocytes % (Manual) Monocytes % (Manual) Eosinophils % (Manual) Basophils % (Manual) Abs Neuts (Manual) Lymphocytes # (Manual) Monocytes # (Manual) Eosinophils # (Manual) Basophils # (Manual) Toxic Vacuolation Platelet Estimate Plt Morphology Comment RBC Morphology Polychromasia Hypochromasia Macrocytosis Spherocytes Target Cells Tear Drop Cells Ovalocytes Schistocytes Hold Purple Top PT 18.8 H INR 1.5 H VBG pH VBG pCO2 VBG pO2 VBG HCO3 VBG O2 Saturation VBG Base Excess Sodium Potassium Chloride Carbon Dioxide Anion Gap BUN Creatinine Estim Creat Clear Calc Estimated GFR Random Glucose Calcium Phosphorus Magnesium Ammonia 102 H Albumin Triglycerides Urine Color Dark Yellow Urine Appearance Clear Urine pH 5.5 Ur Specific [place] 1.020 Urine Protein Trace Urine Glucose (UA) Negative Urine Ketones Negative Urine Blood Moderate (2+) H Urine Nitrite Negative Ur Leukocyte Esterase Negative Urine RBC 11-20 H Urine WBC 0-5 Ur Squamous Epith Cells 3-5 Urine Bacteria None Seen Hyaline Casts 11-20 U Random Total Protein 28 H Ur Random Sodium < 20.0 Urine Creatinine 108.79 Stool Occult Blood Crossmatch See Detail 04/01/23 04/01/23 04/01/23 17:56 18:50 20:23 WBC RBC Hgb 7.2 L Hct 23.2 L MCV MCH MCHC RDW Plt Count MPV Immature Gran % (Auto) Neut % (Auto) Lymph % (Auto) [place] % (Auto) Eos % (Auto) Baso % (Auto) Lymph # (Auto) [place] # (Auto) Eos # (Auto) Baso # (Auto) Abs Immat Gran (auto) Absolute Neuts (auto) Absolute Nucleated RBC Nucleated RBC % (auto) Neutrophils % (Manual) Band Neutrophils % Lymphocytes % (Manual) Monocytes % (Manual) Eosinophils % (Manual) Basophils % (Manual) Abs Neuts (Manual) Lymphocytes # (Manual) Monocytes # (Manual) Eosinophils # (Manual) Basophils # (Manual) Toxic Vacuolation Platelet Estimate Plt Morphology Comment RBC Morphology Polychromasia Hypochromasia Macrocytosis Spherocytes Target Cells Tear Drop Cells Ovalocytes Schistocytes Hold Purple Top SEE NOTE PT INR VBG pH VBG pCO2 VBG pO2 VBG HCO3 VBG O2 Saturation VBG Base Excess Sodium Potassium Chloride Carbon Dioxide Anion Gap BUN Creatinine Estim Creat Clear Calc Estimated GFR Random Glucose Calcium Phosphorus 2.9 Magnesium 2.3 Ammonia Albumin Triglycerides Urine Color Urine Appearance Urine pH Ur Specific [place] Urine Protein Urine Glucose (UA) Urine Ketones Urine Blood Urine Nitrite Ur Leukocyte Esterase Urine RBC Urine WBC Ur Squamous Epith Cells Urine Bacteria Hyaline Casts U Random Total Protein Ur Random Sodium Urine Creatinine Stool Occult Blood POSITIVE Crossmatch 04/02/23 04/02/23 04:28 04:36 WBC 19.1 H RBC 2.46 L Hgb 7.4 L Hct 24.0 L MCV 97.6 MCH 30.1 MCHC 30.8 L RDW 28.2 H Plt Count 204 MPV 11.9 Immature Gran % (Auto) Cancelled Neut % (Auto) Cancelled Lymph % (Auto) Cancelled [place] % (Auto) Cancelled Eos % (Auto) Cancelled Baso % (Auto) Cancelled Lymph # (Auto) Cancelled [place] # (Auto) Cancelled Eos # (Auto) Cancelled Baso # (Auto) Cancelled Abs Immat Gran (auto) Cancelled Absolute Neuts (auto) Cancelled Absolute Nucleated RBC 0.030 H Nucleated RBC % (auto) 0.2 Neutrophils % (Manual) 71 Band Neutrophils % 5 Lymphocytes % (Manual) 13 L Monocytes % (Manual) 7 Eosinophils % (Manual) 2 Basophils % (Manual) 2 Abs Neuts (Manual) 14.5 H Lymphocytes # (Manual) 2.5 Monocytes # (Manual) 1.3 H Eosinophils # (Manual) 0.4 Basophils # (Manual) 0.4 H Toxic Vacuolation PRESENT Platelet Estimate NORMAL Plt Morphology Comment NORMAL RBC Morphology NOTED Polychromasia 1+ (0-2) Hypochromasia 1+ (5-14) Macrocytosis 1+ (5-14) Spherocytes 1+ (0-2) Target Cells 1+ (5-14) Tear Drop Cells 1+ (0-2) Ovalocytes 1+ (5-14) Schistocytes 1+ (0-2) Hold Purple Top PT INR VBG pH 7.37 VBG pCO2 28 VBG pO2 77 VBG HCO3 16 L VBG O2 Saturation 96.0 VBG Base Excess -7.6 Sodium 144 Potassium 2.8 L D Chloride 115 H Carbon Dioxide 17 L Anion Gap 15 BUN 56 H Creatinine 2.23 H Estim Creat Clear Calc 60.6 Estimated GFR 33 Random Glucose 160 H Calcium 8.9 Phosphorus 2.6 L Magnesium 2.4 Ammonia Albumin 3.7 Triglycerides 284 H Urine Color Urine Appearance Urine pH Ur Specific [place] Urine Protein Urine Glucose (UA) Urine Ketones Urine Blood Urine Nitrite Ur Leukocyte Esterase Urine RBC Urine WBC Ur Squamous Epith Cells Urine Bacteria Hyaline Casts U Random Total Protein Ur Random Sodium Urine Creatinine Stool Occult Blood Crossmatch Microbiology Microbiology Results: Microbiology 03/29/23 11:45 Sputum - Suctioned Gram Stain - Final 03/29/23 11:45 Sputum - Suctioned Sputum Culture - Final Staphylococcus aureus Escherichia coli 03/25/23 19:18 Blood - Venous Blood Culture - Final No growth after 5 days. 03/25/23 19:18 Blood - Venous Blood Culture - Final No growth after 5 days. 03/22/23 23:25 Blood - Venous Blood Culture - Final No growth after 5 days. 03/22/23 23:25 Blood - Venous Blood Culture - Final No growth after 5 days. Progress Note: A&P Assessment and plan (1) Aspiration of gastric contents: Status: Acute (2) TILA (acute kidney injury): Status: Acute (3) Ileus: Status: Acute (4) Cardiopulmonary arrest with successful resuscitation: Status: Acute (5) Alcoholic liver disease: Status: Acute (6) Encephalopathy, hepatic: Status: Acute Plan Patient is a 37 Y M with alcohol misuse c/b cirrhosis, psychiatric comorbidities, admitted 03/21 w/ alcohol intoxication; hospital course c/b ileus, c/b aspiration, c/b hypoxic cardiac arrest, as well as persistent encephalopathy, acute renal insufficiency N: encephalopathy, likely toxic-metabolic; to continue lactulose stool output goal 2 L per day CV: prior hypoxic cardiac arrest, hypotension, resolved; R: aspiration pneumonia, c/b hypoxic cardiac arrest; intubated; wean ventilator as tolerated GI: ileus, s/p neostigmine x3, with some improvement; appreciate gastroenterology and surgery recommendations; alcohol misuse c/b cirrhosis : acute renal insufficiency, non-oligouric, likely peaked; appreciate nephrology recommendations H: anemia; possible upper GI source; to continue to monitor; to hold DVT prophylaxis ID: aspiration pneumonia; worsening leukocytosis on ceftriaxone; to broaden to vancomycin, cefepime, and metronidazole P: no acute issues Quality Stroke Does the patient have a stroke diagnosis?: No VTE Prior VTE?: No VTE Risk Level:: Medical - moderate - high VTE Device Contraindication: N/A - Device Ordered VTE Drug Contraindication: Treatment Not Tolerated
[2023-04-02] MEDS: Bumetanide 1 MG/4 ML VIAL IVPUSH ×2 (08:33→16:56)
[2023-04-02] MEDS: Sodium,Potassium Phosphates POWD.PACK 2 PACKET PO ×4 (08:36→21:46)
[2023-04-02] MEDS: Sodium Bicarbonate 8.4% 50 MEQ/50 ML VIAL 100 MEQ IVPUSH (08:37)
[2023-04-02] MEDS: Lactulose 20 GM/30 ML SOLUTION 30 GM PO ×3 (08:37→21:46)
[2023-04-02] MEDS: Chlorhexidine Gluc Oral Rinse 15 ML MOUTHWASH BUCCAL ×3 (08:37→21:46)
[2023-04-02] MEDS: metroNIDAZOLE/NS 500 MG/100 ML PIGGYBACK 100 MG IV ×2 (09:34→18:08)
[2023-04-02] MEDS: cefEPime HCl 2 GM in 0.9 % Sodium Chloride 50 ML IV ×2 (09:34→16:57)
--- NOTE | 2023-04-02 10:10 | PM.PNNEP ---
Subjective Subjective Date of Service: 04/03/23 Interval history: no significant overnight events Physical Exam Vital Signs: Vital Signs: Last Vital Signs Temp 101.3 F H 04/02/23 10:00 Pulse 116 H 04/02/23 10:00 Resp 35 H 04/02/23 10:00 BP 134/71 04/02/23 10:00 Pulse Ox 94 04/02/23 10:00 O2 Del Method Mechanical Ventil ation 04/02/23 10:00 O2 Flow Rate 50 03/24/23 08:52 FiO2 70 04/02/23 10:00 BMI result Body Mass Index 36.5 Const: General: ill appearing Neck: Neck: Yes no meningeal signs and Yes supple Resp: Auscultation: rhonchi Cardio: Jugular venous distension: no JVD GI: Palpation (GI): Soft to palpation Neuro: General: no meningeal signs Cranial nerves: Yes Nystagmus not present Objective Data Labs 04/03/23 04:52 04/03/23 04:53 Labs: Laboratory Results - last 24 hr 04/01/23 04/01/23 04/01/23 11:45 17:56 18:50 WBC RBC Hgb 7.2 L Hct 23.2 L MCV MCH MCHC RDW Plt Count MPV Immature Gran % (Auto) Neut % (Auto) Lymph % (Auto) [place] % (Auto) Eos % (Auto) Baso % (Auto) Lymph # (Auto) [place] # (Auto) Eos # (Auto) Baso # (Auto) Abs Immat Gran (auto) Absolute Neuts (auto) Absolute Nucleated RBC Nucleated RBC % (auto) Neutrophils % (Manual) Band Neutrophils % Lymphocytes % (Manual) Monocytes % (Manual) Eosinophils % (Manual) Basophils % (Manual) Abs Neuts (Manual) Lymphocytes # (Manual) Monocytes # (Manual) Eosinophils # (Manual) Basophils # (Manual) Toxic Vacuolation Platelet Estimate Plt Morphology Comment RBC Morphology Polychromasia Hypochromasia Macrocytosis Spherocytes Target Cells Tear Drop Cells Ovalocytes Schistocytes Hold Purple Top SEE NOTE VBG pH VBG pCO2 VBG pO2 VBG HCO3 VBG O2 Saturation VBG Base Excess Sodium Potassium Chloride Carbon Dioxide Anion Gap BUN Creatinine Estim Creat Clear Calc Estimated GFR Random Glucose Calcium Phosphorus 2.9 Magnesium 2.3 Albumin Triglycerides Urine Color Dark Yellow Urine Appearance Clear Urine pH 5.5 Ur Specific [place] 1.020 Urine Protein Trace Urine Glucose (UA) Negative Urine Ketones Negative Urine Blood Moderate (2+) H Urine Nitrite Negative Ur Leukocyte Esterase Negative Urine RBC 11-20 H Urine WBC 0-5 Ur Squamous Epith Cells 3-5 Urine Bacteria None Seen Hyaline Casts 11-20 U Random Total Protein 28 H Ur Random Sodium < 20.0 Urine Creatinine 108.79 Stool Occult Blood 04/01/23 04/02/23 04/02/23 20:23 04:28 04:36 WBC 19.1 H RBC 2.46 L Hgb 7.4 L Hct 24.0 L MCV 97.6 MCH 30.1 MCHC 30.8 L RDW 28.2 H Plt Count 204 MPV 11.9 Immature Gran % (Auto) Cancelled Neut % (Auto) Cancelled Lymph % (Auto) Cancelled [place] % (Auto) Cancelled Eos % (Auto) Cancelled Baso % (Auto) Cancelled Lymph # (Auto) Cancelled [place] # (Auto) Cancelled Eos # (Auto) Cancelled Baso # (Auto) Cancelled Abs Immat Gran (auto) Cancelled Absolute Neuts (auto) Cancelled Absolute Nucleated RBC 0.030 H Nucleated RBC % (auto) 0.2 Neutrophils % (Manual) 71 Band Neutrophils % 5 Lymphocytes % (Manual) 13 L Monocytes % (Manual) 7 Eosinophils % (Manual) 2 Basophils % (Manual) 2 Abs Neuts (Manual) 14.5 H Lymphocytes # (Manual) 2.5 Monocytes # (Manual) 1.3 H Eosinophils # (Manual) 0.4 Basophils # (Manual) 0.4 H Toxic Vacuolation PRESENT Platelet Estimate NORMAL Plt Morphology Comment NORMAL RBC Morphology NOTED Polychromasia 1+ (0-2) Hypochromasia 1+ (5-14) Macrocytosis 1+ (5-14) Spherocytes 1+ (0-2) Target Cells 1+ (5-14) Tear Drop Cells 1+ (0-2) Ovalocytes 1+ (5-14) Schistocytes 1+ (0-2) Hold Purple Top VBG pH 7.37 VBG pCO2 28 VBG pO2 77 VBG HCO3 16 L VBG O2 Saturation 96.0 VBG Base Excess -7.6 Sodium 144 Potassium 2.8 L D Chloride 115 H Carbon Dioxide 17 L Anion Gap 15 BUN 56 H Creatinine 2.23 H Estim Creat Clear Calc 60.6 Estimated GFR 33 Random Glucose 160 H Calcium 8.9 Phosphorus 2.6 L Magnesium 2.4 Albumin 3.7 Triglycerides 284 H Urine Color Urine Appearance Urine pH Ur Specific [place] Urine Protein Urine Glucose (UA) Urine Ketones Urine Blood Urine Nitrite Ur Leukocyte Esterase Urine RBC Urine WBC Ur Squamous Epith Cells Urine Bacteria Hyaline Casts U Random Total Protein Ur Random Sodium Urine Creatinine Stool Occult Blood POSITIVE Microbiology Microbiology Results: Microbiology 03/29/23 11:45 Sputum - Suctioned Gram Stain - Final 03/29/23 11:45 Sputum - Suctioned Sputum Culture - Final Staphylococcus aureus Escherichia coli 03/25/23 19:18 Blood - Venous Blood Culture - Final No growth after 5 days. 03/25/23 19:18 Blood - Venous Blood Culture - Final No growth after 5 days. 03/22/23 23:25 Blood - Venous Blood Culture - Final No growth after 5 days. 03/22/23 23:25 Blood - Venous Blood Culture - Final No growth after 5 days. Procedures Date of Service Date of Service: 04/03/23 Assessment & Plan Assessment and plan (1) TILA (acute kidney injury): Status: Acute (2) Metabolic acidosis: Status: Acute (3) Anemia: Status: Acute Plan 37-year-old man with a history of cardiac arrest currently his acute kidney injury most likely due to ischemic ATN. No evidence of obstruction. active glomerulonephritis or interstitial disease. -unlikely He is at high risk for vanco induced tubular injury. He is critically ill and intubated. Recommendation Agree with diuresis Watch urine output closely. Avoid hypotension and continue to avoid nephrotoxins. At present is no absolute indication for dialysis. Concur with current medical management and will follow along with the team. Time Spent With Patient Time: Total time managing care of this patient today ____ minutes. Progress Note: Quality Stroke Does the patient have a stroke diagnosis?: No
[2023-04-02 10:14] LABS: Vancomycin Random 3.2 mcg/mL (15-20)
[2023-04-02] MEDS: vancomycin/NS 2,000 MG/500 ML PLAST..BAG 250 MG IV (11:08)
[2023-04-02] MEDS: propofoL 1,000 MG/100 ML VIAL 20.7 MG IVCONT (11:36)
--- NOTE | 2023-04-02 14:06 | PM.CCPN ---
Subjective Subjective Interval History: This is a 37-year-old man with a past medical history of alcohol abuse, liver cirrhosis, bipolar disorder, major depressive disorder, and was admitted on 03/21/23 for acute alcohol intoxication. The patient was admitted to medicine for abdominal pain which was evaluated by general surgery one day later with no acute findings. The hospital state was complicated by a cardiac arrest secondary to aspiration of bilious contents. ROSC was achieved after three rounds of CPR. The patient was subsequently intubated and transferred to the intensive care unit. A CT scan of the abdomen and pelvis demonstrated dilated bowel loops with no transition point. There was no intervention warranted per general surgery. The patient has had significant encephalopathy and minimal arousal with sedation vacation. An MRI of the brain on 03/28 was essentially normal. Physical Exam Vital Signs: Vital Signs: Last Vital Signs Temp 101.3 F H 04/02/23 12:59 Pulse 114 H 04/02/23 12:59 Resp 35 H 04/02/23 12:59 BP 134/75 04/02/23 12:59 Pulse Ox 94 04/02/23 12:59 O2 Del Method Mechanical Ventil ation 04/02/23 12:59 O2 Flow Rate 50 03/24/23 08:52 FiO2 70 04/02/23 12:59 BMI result Body Mass Index 31.2 Const: General: ill appearing and patient obtunded Orientation/consciousness: patient obtunded HEENT: Head: Yes normocephalic Mouth: Normal oral and palatal mucosa present Eyes: Conjunctivae: conjunctival abnormal (pale) Sclerae: scleral abnormal (icteric) bilateral Pupils: Equal, round and reactive pupils present EOM: Nystagmus present (vertical downward) Neck: Neck: Yes no JVD Resp: Effort & Inspection: labored and tachypneic Auscultation: rhonchi and diminished lung sounds Cardio: Palpation: abnormal PMI Rate: tachycardic Rhythm: regular rhythm Heart sounds: S1 normal heart sound present and S2 normal heart sound present GI: Inspection: Yes distended and Yes Abdominal panniculus present Palpation (GI): Firmness to palpation present (GI) Auscultation: Hypoactive bowel sounds present Skin: General skin exam: no rashes or lesions noted and jaundice (diffuse) Neuro: General: patient obtunded Cranial nerves: Yes Equal, round and reactive pupils present and Yes Nystagmus present (vertical downward) Extrem: General: Yes capillary refill normal and Yes edema (b/l upper and lower ext) Objective Data Labs 04/02/23 04:28 04/02/23 04:28 Labs: Laboratory Results - last 24 hr 04/01/23 04/01/23 04/01/23 17:56 18:50 20:23 WBC RBC Hgb 7.2 L Hct 23.2 L MCV MCH MCHC RDW Plt Count MPV Immature Gran % (Auto) Neut % (Auto) Lymph % (Auto) [place] % (Auto) Eos % (Auto) Baso % (Auto) Lymph # (Auto) [place] # (Auto) Eos # (Auto) Baso # (Auto) Abs Immat Gran (auto) Absolute Neuts (auto) Absolute Nucleated RBC Nucleated RBC % (auto) Neutrophils % (Manual) Band Neutrophils % Lymphocytes % (Manual) Monocytes % (Manual) Eosinophils % (Manual) Basophils % (Manual) Abs Neuts (Manual) Lymphocytes # (Manual) Monocytes # (Manual) Eosinophils # (Manual) Basophils # (Manual) Toxic Vacuolation Platelet Estimate Plt Morphology Comment RBC Morphology Polychromasia Hypochromasia Macrocytosis Spherocytes Target Cells Tear Drop Cells Ovalocytes Schistocytes Hold Purple Top SEE NOTE VBG pH VBG pCO2 VBG pO2 VBG HCO3 VBG O2 Saturation VBG Base Excess Sodium Potassium Chloride Carbon Dioxide Anion Gap BUN Creatinine Estim Creat Clear Calc Estimated GFR Random Glucose Lactic Acid Calcium Phosphorus 2.9 Magnesium 2.3 Albumin Triglycerides Stool Occult Blood POSITIVE Random Vancomycin 04/02/23 04/02/23 04/02/23 04:28 04:36 09:54 WBC 19.1 H RBC 2.46 L Hgb 7.4 L Hct 24.0 L MCV 97.6 MCH 30.1 MCHC 30.8 L RDW 28.2 H Plt Count 204 MPV 11.9 Immature Gran % (Auto) Cancelled Neut % (Auto) Cancelled Lymph % (Auto) Cancelled [place] % (Auto) Cancelled Eos % (Auto) Cancelled Baso % (Auto) Cancelled Lymph # (Auto) Cancelled [place] # (Auto) Cancelled Eos # (Auto) Cancelled Baso # (Auto) Cancelled Abs Immat Gran (auto) Cancelled Absolute Neuts (auto) Cancelled Absolute Nucleated RBC 0.030 H Nucleated RBC % (auto) 0.2 Neutrophils % (Manual) 71 Band Neutrophils % 5 Lymphocytes % (Manual) 13 L Monocytes % (Manual) 7 Eosinophils % (Manual) 2 Basophils % (Manual) 2 Abs Neuts (Manual) 14.5 H Lymphocytes # (Manual) 2.5 Monocytes # (Manual) 1.3 H Eosinophils # (Manual) 0.4 Basophils # (Manual) 0.4 H Toxic Vacuolation PRESENT Platelet Estimate NORMAL Plt Morphology Comment NORMAL RBC Morphology NOTED Polychromasia 1+ (0-2) Hypochromasia 1+ (5-14) Macrocytosis 1+ (5-14) Spherocytes 1+ (0-2) Target Cells 1+ (5-14) Tear Drop Cells 1+ (0-2) Ovalocytes 1+ (5-14) Schistocytes 1+ (0-2) Hold Purple Top VBG pH 7.37 VBG pCO2 28 VBG pO2 77 VBG HCO3 16 L VBG O2 Saturation 96.0 VBG Base Excess -7.6 Sodium 144 Potassium 2.8 L D Chloride 115 H Carbon Dioxide 17 L Anion Gap 15 BUN 56 H Creatinine 2.23 H Estim Creat Clear Calc 60.6 Estimated GFR 33 Random Glucose 160 H Lactic Acid 1.0 Calcium 8.9 Phosphorus 2.6 L Magnesium 2.4 Albumin 3.7 Triglycerides 284 H Stool Occult Blood Random Vancomycin 3.2 L Microbiology Microbiology Results: Microbiology 03/29/23 11:45 Sputum - Suctioned Gram Stain - Final 03/29/23 11:45 Sputum - Suctioned Sputum Culture - Final Staphylococcus aureus Escherichia coli 03/25/23 19:18 Blood - Venous Blood Culture - Final No growth after 5 days. 03/25/23 19:18 Blood - Venous Blood Culture - Final No growth after 5 days. 03/22/23 23:25 Blood - Venous Blood Culture - Final No growth after 5 days. 03/22/23 23:25 Blood - Venous Blood Culture - Final No growth after 5 days. Progress Note: A&P Assessment and plan Plan Neurologic: patient has encephalopathy secondary to hepatic disease. Patient is also sedated with propofol. The patient has been receiving lactulose 20 g once daily with a goal of 2 L stool output. We will likely start rifaximin which is indicated for patients with hepatic encephalopathy with no clinical improvement with lactulose. Cardiovascular: status post hypoxic cardiac arrest with hypertension however this issue has resolved. The patient has been tachycardic with normal sinus rhythm with rates in the low 100s. Respiratory: patient had an episode of hypoxic cardiac arrest secondary to aspiration with subsequent aspiration pneumonia. The patient is currently intubated and ventilated on AC/VC RR set at 24, tV of 350, peep of 5, and FiO2 of 60%. Patient was treated for their aspiration pneumonia and has since then resolved. We will continue to wean the patient from the vent. Gastrointestinal: patient has an ileus of unknown origin. Patient also has severe liver disease evidenced on CT scan showing hepatic steatosis, hepatomegaly, splenomegaly and portal hypertension. The patient has been given neostigmine three separate times with moderate improvement and adequate motility. G.I. has given their input however we are going to ask them again as well as for any surgery recommendations. We have also calculated a MELD score and have determined a 30% 90 day mortality for the patient. Renal/Genitourinary: the patient has a resolving renal insufficiency that is non-oliguric. The patient has been followed by nephrology, please see their note for further details and recommendations. As of right now the patient is currently receiving 1 mg of Bumex twice per day. Hematology: patient currently has an anemia however it is suspected that it is from nutritional deficiencies. Patient is receiving TPN. Please see metal fabricating inspector notes. Infectious disease: patient had aspiration pneumonia which has since been resolved. Currently patient has worsening leukocytosis and fever. The patient has been placed on cefepime, vancomycin, and metronidazole for broad-spectrum coverage. Patient also receiving Tylenol for fever. Currently the patient does not have any positive cultures in sputum, blood, or urine. A saravia CT scan has been ordered to assess for any acute infectious processes. Prophylaxis: 40 mg of pantoprazole twice daily for G.I. prophylaxis. DVT prophylaxis with SCD?s. Holding anticoagulation due to anemia. Quality Stroke Does the patient have a stroke diagnosis?: No VTE Prior VTE?: No VTE Risk Level:: Medical - moderate - high VTE Device Contraindication: N/A - Device Ordered VTE Drug Contraindication: Treatment Not Tolerated
[2023-04-02] MEDS: Erythromycin Lactobionate 250 MG in 0.9 % Sodium Chloride 100 ML 100 MG IV ×2 (14:09→23:29)
--- NOTE | 2023-04-02 14:50 | MHC.CM.PN ---
Pt continues care in ICU: condition very guarded: plans are to continue diuresing and hopefully to titrate some of the sedation to assess for return of neuro functioning. No plans for d/c at this time.
[2023-04-02] MEDS: Thiamine HCL 200 MG in 0.9 % Sodium Chloride 100 ML 204 MG IV (15:31)
[2023-04-02] MEDS: propofoL 1,000 MG/100 ML VIAL 13.8 MG IVCONT ×2 (15:47→21:32)
[2023-04-02 18:51] LABS: Hematocrit 24.2 % (42.0-52.0); Hemoglobin 7.7 g/dl (14.0-18.0); Mean Corpuscular HGB Conc 31.8 g/dl (31.0-36.0); Mean Corpuscular Hemoglobin 30.8 pg (27.0-33.0); Mean Corpuscular Volume 96.8 fL (80.0-98.0); Mean Platelet Volume 11.1 fL (9.4-12.4); NRBC Pct Auto 0.2 /100WBC (0.0-0.2); PLT CLUMP 1; Red Cell Distribution Width 29.2 % (11.0-16.0)
[2023-04-02] MEDS: Metoprolol Tartrate 5 MG/5 ML VIAL IVPUSH (19:27)
[2023-04-02 19:30] LABS: TSH reflex Free T4 0.78 uIU/mL (0.32-4.0)
[2023-04-02 19:43] LABS: Band Neutrophils Percent 1 % (3-5); Basophils Percent Manual 2 % (0-2); Eosinophils Percent Manual 2 % (0-4); Lymphocytes Percent Manual 7 % (20-40); Monocytes Percent Manual 8 % (2-11); Neutrophils Percent Manual 80 % (45-73)
[2023-04-02 19:45] LABS: Platelet Estimate NORMAL (NORMAL); Platelet Morphology Comment NORM
[2023-04-02 19:46] LABS: Hypersegmented Neutrophils PRESENT; Hypochromasia 1+ (5-14) /OIF; Polychromasia 1+ (0-2) /OIF
[2023-04-02 19:48] LABS: Schistocytes 1+ (0-2) /OIF
[2023-04-02 19:49] LABS: RBC Morphology NOTED
[2023-04-02 19:50] LABS: Macrocytosis 1+ (5-14) /OIF
[2023-04-02 19:51] LABS: Spherocytes 1+ (0-2) /OIF
[2023-04-02 19:52] LABS: Basophils Abs Manual 0.4 X10*3/uL (0.0-0.2); Eosinophils Absolute Manual 0.4 X10*3/uL (0.0-0.4); Lymphocytes Absolute Manual 1.2 X10*3/uL (1.2-4.9); Monocytes Absolute Manual 1.4 X10*3/uL (0.1-1.2); Neutrophils Absolute Manual 14.4 X10*3/uL (2.0-8.3); Platelet Count 200 X10*3/uL (160-400); White Blood Count 17.8 X10*3/uL (4.8-10.8)
[2023-04-02] MEDS: Parenteral Nutrition 2,280 ML 95 ML IV (21:41)
--- NOTE | 2023-04-02 23:45 | P.PNCC_ITS ---
Subjective Subjective Date of Service: 04/02/23 Interval History: Please see progress note by Dr. Mackey and previous notes for details of this patient has been the emergency room for little over 12 days. In the last 24 hours, I was concerned the patient continues to be bacteremic, having white count, left shift, toxic granulocytes on the differential despite of multiple antibiotics which were just changed and broaden this morning. He still has a fever and tachycardia. The case was discussed with Dr. Mackey to whom I suggested to do a chest, abdomen pelvis CT which has been done. Based on the results of this, I am concerned that the patient's actual origin were source of his fever, bacteremia is the gallbladder therefore I ordered ultrasound for further definition. The results of the ultrasound from today in comparison to the one from 03/17/23; the new US is consistent with acute cholecystitis given multiple changes as described in the following report. US RUQ IMPRESSION: Findings suggestive acute cholecystitis with stones and sludge in the thick-walled gallbladder with a small amount of pericholecystic fluid. Ji's sign could not be evaluated as the patient was sedated in the ICU. A HIDA scan might be useful for further evaluation. The case was discussed in detail with the general surgeon Dr. Ellen Hager, who agrees that in light of no other source or finding, I would not hurt rather benefit the patient to have Interbentional Radiology placed a percutaneous drainage catheter into the gallbladder, subsequently the fluid can be sent for culture, eventually if the patient does improve and he comes out of the ICU a cholecystectomy can be then considered. Callled IR this am, I was told the PAC Mr Nunez will be here at [address] Ordaz will be here at noon; will call to have discussion about the procedural need for this patient cholecystostomy tube placement, hands latest INR is 1.7. I would alson send the bile material for culture and GS. As for now, will continue with medical treatment and will place a consult for Interventional Radiology in the morning. The case will be discussed with Dr. Mackey. Total critical care time with this patient 30 minutes Critical Care Time (minutes): 30 Physical Exam 2 Vital Signs: Vital Signs: Last Vital Signs Temp 102.7 F H 04/02/23 23:00 Pulse 109 H 04/02/23 23:00 Resp 41 H 04/02/23 23:00 BP 130/67 04/02/23 23:00 Pulse Ox 93 04/02/23 23:00 O2 Del Method Mechanical Ventil ation 04/02/23 23:00 O2 Flow Rate 50 03/24/23 08:52 FiO2 60 04/02/23 23:25 BMI result Body Mass Index 31.2 Objective Data Labs 04/03/23 04:52 04/03/23 04:53 Labs: Laboratory Results - last 24 hr 04/02/23 04/02/23 04/02/23 04:28 04:36 09:54 WBC 19.1 H RBC 2.46 L Hgb 7.4 L Hct 24.0 L MCV 97.6 MCH 30.1 MCHC 30.8 L RDW 28.2 H Plt Count 204 MPV 11.9 Immature Gran % (Auto) Cancelled Neut % (Auto) Cancelled Lymph % (Auto) Cancelled [place] % (Auto) Cancelled Eos % (Auto) Cancelled Baso % (Auto) Cancelled Lymph # (Auto) Cancelled [place] # (Auto) Cancelled Eos # (Auto) Cancelled Baso # (Auto) Cancelled Abs Immat Gran (auto) Cancelled Absolute Neuts (auto) Cancelled Absolute Nucleated RBC 0.030 H Nucleated RBC % (auto) 0.2 Neutrophils % (Manual) 71 Band Neutrophils % 5 Lymphocytes % (Manual) 13 L Monocytes % (Manual) 7 Eosinophils % (Manual) 2 Basophils % (Manual) 2 Abs Neuts (Manual) 14.5 H Lymphocytes # (Manual) 2.5 Monocytes # (Manual) 1.3 H Eosinophils # (Manual) 0.4 Basophils # (Manual) 0.4 H Hypersegmented Neuts Toxic Vacuolation PRESENT Platelet Estimate NORMAL Plt Morphology Comment NORMAL RBC Morphology NOTED Polychromasia 1+ (0-2) Hypochromasia 1+ (5-14) Macrocytosis 1+ (5-14) Spherocytes 1+ (0-2) Target Cells 1+ (5-14) Tear Drop Cells 1+ (0-2) Ovalocytes 1+ (5-14) Schistocytes 1+ (0-2) VBG pH 7.37 VBG pCO2 28 VBG pO2 77 VBG HCO3 16 L VBG O2 Saturation 96.0 VBG Base Excess -7.6 Sodium 144 Potassium 2.8 L D Chloride 115 H Carbon Dioxide 17 L Anion Gap 15 BUN 56 H Creatinine 2.23 H Estim Creat Clear Calc 60.6 Estimated GFR 33 Random Glucose 160 H Lactic Acid 1.0 Calcium 8.9 Phosphorus 2.6 L Magnesium 2.4 Albumin 3.7 Triglycerides 284 H TSH Random Vancomycin 3.2 L 04/02/23 04/02/23 18:01 18:48 WBC 17.8 H RBC 2.50 L Hgb 7.7 L Hct 24.2 L MCV 96.8 MCH 30.8 MCHC 31.8 RDW 29.2 H Plt Count 200 MPV 11.1 Immature Gran % (Auto) Cancelled Neut % (Auto) Cancelled Lymph % (Auto) Cancelled [place] % (Auto) Cancelled Eos % (Auto) Cancelled Baso % (Auto) Cancelled Lymph # (Auto) Cancelled [place] # (Auto) Cancelled Eos # (Auto) Cancelled Baso # (Auto) Cancelled Abs Immat Gran (auto) Cancelled Absolute Neuts (auto) Cancelled Absolute Nucleated RBC 0.040 H Nucleated RBC % (auto) 0.2 Neutrophils % (Manual) 80 H Band Neutrophils % 1 L Lymphocytes % (Manual) 7 L Monocytes % (Manual) 8 Eosinophils % (Manual) 2 Basophils % (Manual) 2 Abs Neuts (Manual) 14.4 H Lymphocytes # (Manual) 1.2 Monocytes # (Manual) 1.4 H Eosinophils # (Manual) 0.4 Basophils # (Manual) 0.4 H Hypersegmented Neuts PRESENT Toxic Vacuolation Platelet Estimate NORMAL Plt Morphology Comment NORM RBC Morphology NOTED Polychromasia 1+ (0-2) Hypochromasia 1+ (5-14) Macrocytosis 1+ (5-14) Spherocytes 1+ (0-2) Target Cells Tear Drop Cells Ovalocytes Schistocytes 1+ (0-2) VBG pH VBG pCO2 VBG pO2 VBG HCO3 VBG O2 Saturation VBG Base Excess Sodium Potassium Chloride Carbon Dioxide Anion Gap BUN Creatinine Estim Creat Clear Calc Estimated GFR Random Glucose Lactic Acid Calcium Phosphorus Magnesium Albumin Triglycerides TSH 0.78 Random Vancomycin Microbiology Microbiology Results: Microbiology 04/01/23 18:54 Blood - Venous Blood Culture - Preliminary No growth after 24 hours. 04/01/23 18:54 Blood - Venous Blood Culture - Preliminary No growth after 24 hours. 03/29/23 11:45 Sputum - Suctioned Gram Stain - Final 03/29/23 11:45 Sputum - Suctioned Sputum Culture - Final Staphylococcus aureus Escherichia coli 03/25/23 19:18 Blood - Venous Blood Culture - Final No growth after 5 days. 03/25/23 19:18 Blood - Venous Blood Culture - Final No growth after 5 days. 03/22/23 23:25 Blood - Venous Blood Culture - Final No growth after 5 days. 03/22/23 23:25 Blood - Venous Blood Culture - Final No growth after 5 days. Quality Stroke Does the patient have a stroke diagnosis?: No VTE Prior VTE?: No VTE Risk Level:: Medical - moderate - high VTE Device Contraindication: N/A - Device Ordered VTE Drug Contraindication: Treatment Not Tolerated
[2023-04-03] VITALS (31 sets, daily range): BP systolic 129–168; BP diastolic 63–92; PULSE 96–115; RESP 27–41; TEMP 35–39.5; O2SAT 92–99; BMI 33.8
[2023-04-03] MEDS: cefEPime HCl 2 GM in 0.9 % Sodium Chloride 50 ML IV ×3 (00:44→17:04)
[2023-04-03] MEDS: metroNIDAZOLE/NS 500 MG/100 ML PIGGYBACK 100 MG IV ×3 (01:42→17:10)
[2023-04-03] MEDS: Lactulose 320 GM/480 ML SOLUTION 200 GM PR ×3 (03:03→22:19)
[2023-04-03] MEDS: propofoL 1,000 MG/100 ML VIAL 13.8 MG IVCONT (03:27)
[2023-04-03] MEDS: Thiamine HCL 200 MG in 0.9 % Sodium Chloride 100 ML 204 MG IV ×2 (04:18→15:17)
--- NOTE | 2023-04-03 05:17 | PC.NURSE ---
CARE ASSUMED 7P...REMAINS INTUBATED/VCV VENT SUPPORT...UNRESPONSIVE...EXTREMETIES FLACCID..NO GAG REFLEX...(+) WEAK COUGH...PROPOFOL MAINTAINED 20-30 MCG/KG/MIN FOR RR 38-42..SINUS TACH HR 110'S...T-MAX 103.1 CORE....IV TYLENOL NOT GIVEN AFTER REVIEW WITH PA D/T ELEVATED LFT'S...PLACED COOLING BLANKET AFTER OBTAINED BY HEAD OF OPERATION AND LOGISTICS...CURRENTLY QESZ=342.7..HR 102....RECTAL TUBE EMPTIED >2000ml LIQUIED BROWN STOOL...BOTH OG AND RI LACTULOSE CONTINUED PER ICU PA...BEDSIDE US ABDOMEN DONE AT BEDSIDE AT HS....ICU PA CONSULTED SURGERY AND PLAN FOR PROBABLE PERCUTANEOUS GALLBLADDER DRAINAGE TUBE PLACEMENT LATER TODAY BY IR....REMAINS MARKEDLY JAUNDICED..(+) SCLERAL EDEMA AND ICTERIC
[2023-04-03 05:50] LABS: Hematocrit 26.5 % (42.0-52.0); Hemoglobin 8.2 g/dl (14.0-18.0); Mean Corpuscular HGB Conc 30.9 g/dl (31.0-36.0); Mean Corpuscular Hemoglobin 30.3 pg (27.0-33.0); Mean Corpuscular Volume 97.8 fL (80.0-98.0); Mean Platelet Volume 12.2 fL (9.4-12.4); NRBC Pct Auto 0.1 /100WBC (0.0-0.2); Platelet Count 200 X10*3/uL (160-400); Red Blood Count 2.71 X10*6/uL (4.60-5.80); Red Cell Distribution Width 29.5 % (11.0-16.0); White Blood Count 15.8 X10*3/uL (4.8-10.8)
[2023-04-03 05:55] LABS: INTERNATIONAL NORM RATIO 1.7 (0.9-1.1); Prothrombin Time 20.7 SEC (11.1-13.3)
[2023-04-03 05:57] LABS: Partial Thromboplastin Time 39.9 SEC (26.0-36.4)
[2023-04-03 06:11] LABS: Albumin Level 3.7 g/dL (3.5-5.0); Anion Gap 18 (12-20); Blood Urea Nitrogen 50 mg/dL (9-16); Calcium 9.2 mg/dL (8.4-10.2); Carbon Dioxide 18 mmol/L (22-29); Chloride 116 mmol/L (96-108); Creatinine Clr Calc Pharmacy 73.5; Estimated Glomerular Filt Rate 43; Glucose Random 333 mg/dL (60-115); Magnesium 2.3 mg/dL (1.6-2.6); Phosphorus 2.9 mg/dL (2.7-4.5); Potassium 2.7 mmol/L (3.3-5.1); Sodium 149 mmol/L (135-145); Triglycerides 296 mg/dL (<150)
[2023-04-03] MEDS: Pantoprazole Sodium 40 MG/10 ML VIAL IVPUSH ×2 (06:13→17:05)
[2023-04-03 06:25] LABS: Atypical Lymph Absolute Manual 0.2 x10*3/uL; Atypical Lymphs Percent Manual 1 % (0-6); Band Neutrophils Percent 7 % (3-5); Basophils Abs Manual 0.5 X10*3/uL (0.0-0.2); Basophils Percent Manual 3 % (0-2); Eosinophils Absolute Manual 0.5 X10*3/uL (0.0-0.4); Eosinophils Percent Manual 3 % (0-4); Lymphocytes Absolute Manual 1.4 X10*3/uL (1.2-4.9); Lymphocytes Percent Manual 9 % (20-40); Metamyelocytes Absolute 0.2 X10*3/uL; Metamyelocytes Percent 1 %; Monocytes Absolute Manual 0.8 X10*3/uL (0.1-1.2); Monocytes Percent Manual 5 % (2-11); Neutrophils Absolute Manual 12.3 X10*3/uL (2.0-8.3); Neutrophils Percent Manual 71 % (45-73)
[2023-04-03 06:26] LABS: Macrocytosis 1+ (5-14) /OIF; Ovalocytes 1+ (5-14) /OIF; Platelet Estimate NORMAL (NORMAL); Platelet Morphology Comment NORMAL; RBC Morphology NOTED; Schistocytes 1+ (0-2) /OIF
[2023-04-03 06:27] LABS: Hypochromasia 1+ (5-14) /OIF; Polychromasia 1+ (0-2) /OIF; Target Cells 1+ (5-14) /OIF; Tear Drop Cells 1+ (0-2) /OIF; Toxic Vacuolation PRESENT
--- NOTE | 2023-04-03 07:55 | P.PNCC_ITS ---
Subjective Subjective Date of Service: 04/03/23 Interval History: RUQ ultrasound performed overnight suggestive of cholecystitis; general surgery and interventional radiology consulted Critical Care Time (minutes): 90 Physical Exam 2 Vital Signs: Vital Signs: Last Vital Signs Temp 100.2 F 04/03/23 07:00 Pulse 96 04/03/23 07:00 Resp 32 H 04/03/23 07:00 BP 155/83 H 04/03/23 07:00 Pulse Ox 95 04/03/23 07:00 O2 Del Method Mechanical Ventil ation 04/03/23 07:00 O2 Flow Rate 50 03/24/23 08:52 FiO2 60 04/03/23 07:35 BMI result Body Mass Index 33.8 Const: Other: intubated, sedated; some appreciable withdrawal to noxious stimulus; visibly jaundiced HEENT: Head: Yes normal to inspection, Yes normocephalic and Yes atraumatic Eyes: General: appearance normal, both eyes and all related structures Neck: Neck: Yes normal visual inspection and Yes supple Resp: Other: some appreciable rhonchi; no appreciable rales, wheezing Cardio: Rate: regular rate Rhythm: regular rhythm GI: Other: appreciable bowel sounds; distended, though compressible; no appreciable guarding, rebound Inspection: Yes Abdominal wall edema Skin: Other: jaundice, as described General skin exam: no rashes or lesions noted Neuro: Other: intubated, sedated; some more appreciable spontaneous movements Extrem: Other: 2+ pitting edema throughout General: Yes capillary refill normal Psych: Other: unable to assess Objective Data Labs 04/03/23 04:52 04/03/23 04:53 Labs: Laboratory Results - last 24 hr 04/02/23 04/02/23 04/02/23 09:54 18:01 18:48 WBC 17.8 H RBC 2.50 L Hgb 7.7 L Hct 24.2 L MCV 96.8 MCH 30.8 MCHC 31.8 RDW 29.2 H Plt Count 200 MPV 11.1 Immature Gran % (Auto) Cancelled Neut % (Auto) Cancelled Lymph % (Auto) Cancelled [place] % (Auto) Cancelled Eos % (Auto) Cancelled Baso % (Auto) Cancelled Lymph # (Auto) Cancelled [place] # (Auto) Cancelled Eos # (Auto) Cancelled Baso # (Auto) Cancelled Abs Immat Gran (auto) Cancelled Absolute Neuts (auto) Cancelled Absolute Nucleated RBC 0.040 H Nucleated RBC % (auto) 0.2 Neutrophils % (Manual) 80 H Band Neutrophils % 1 L Lymphocytes % (Manual) 7 L Atypical Lymphs % (Man) Monocytes % (Manual) 8 Eosinophils % (Manual) 2 Basophils % (Manual) 2 Metamyelocytes % Abs Neuts (Manual) 14.4 H Lymphocytes # (Manual) 1.2 Atyp Lymphs # (Manual) Monocytes # (Manual) 1.4 H Eosinophils # (Manual) 0.4 Basophils # (Manual) 0.4 H Metamyelocytes # Hypersegmented Neuts PRESENT Toxic Vacuolation Platelet Estimate NORMAL Plt Morphology Comment NORM RBC Morphology NOTED Polychromasia 1+ (0-2) Hypochromasia 1+ (5-14) Macrocytosis 1+ (5-14) Spherocytes 1+ (0-2) Target Cells Tear Drop Cells Ovalocytes Schistocytes 1+ (0-2) PT INR APTT Sodium Potassium Chloride Carbon Dioxide Anion Gap BUN Creatinine Estim Creat Clear Calc Estimated GFR Random Glucose Lactic Acid 1.0 Calcium Phosphorus Magnesium Albumin Triglycerides TSH 0.78 Random Vancomycin 3.2 L 04/03/23 04/03/23 04:52 04:53 WBC 15.8 H RBC 2.71 L Hgb 8.2 L Hct 26.5 L MCV 97.8 MCH 30.3 MCHC 30.9 L RDW 29.5 H Plt Count 200 MPV 12.2 Immature Gran % (Auto) Cancelled Neut % (Auto) Cancelled Lymph % (Auto) Cancelled [place] % (Auto) Cancelled Eos % (Auto) Cancelled Baso % (Auto) Cancelled Lymph # (Auto) Cancelled [place] # (Auto) Cancelled Eos # (Auto) Cancelled Baso # (Auto) Cancelled Abs Immat Gran (auto) Cancelled Absolute Neuts (auto) Cancelled Absolute Nucleated RBC 0.020 H Nucleated RBC % (auto) 0.1 Neutrophils % (Manual) 71 Band Neutrophils % 7 H Lymphocytes % (Manual) 9 L Atypical Lymphs % (Man) 1 Monocytes % (Manual) 5 Eosinophils % (Manual) 3 Basophils % (Manual) 3 H Metamyelocytes % 1 Abs Neuts (Manual) 12.3 H Lymphocytes # (Manual) 1.4 Atyp Lymphs # (Manual) 0.2 Monocytes # (Manual) 0.8 Eosinophils # (Manual) 0.5 H Basophils # (Manual) 0.5 H Metamyelocytes # 0.2 Hypersegmented Neuts Toxic Vacuolation PRESENT Platelet Estimate NORMAL Plt Morphology Comment NORMAL RBC Morphology NOTED Polychromasia 1+ (0-2) Hypochromasia 1+ (5-14) Macrocytosis 1+ (5-14) Spherocytes Target Cells 1+ (5-14) Tear Drop Cells 1+ (0-2) Ovalocytes 1+ (5-14) Schistocytes 1+ (0-2) PT 20.7 H INR 1.7 H APTT 39.9 H Sodium 149 H Potassium 2.7 L Chloride 116 H Carbon Dioxide 18 L Anion Gap 18 BUN 50 H Creatinine 1.77 H Estim Creat Clear Calc 73.5 Estimated GFR 43 Random Glucose 333 H Lactic Acid Calcium 9.2 Phosphorus 2.9 Magnesium 2.3 Albumin 3.7 Triglycerides 296 H TSH Random Vancomycin Microbiology Microbiology Results: Microbiology 04/01/23 18:54 Blood - Venous Blood Culture - Preliminary No growth after 24 hours. 04/01/23 18:54 Blood - Venous Blood Culture - Preliminary No growth after 24 hours. 03/29/23 11:45 Sputum - Suctioned Gram Stain - Final 03/29/23 11:45 Sputum - Suctioned Sputum Culture - Final Staphylococcus aureus Escherichia coli 03/25/23 19:18 Blood - Venous Blood Culture - Final No growth after 5 days. 03/25/23 19:18 Blood - Venous Blood Culture - Final No growth after 5 days. 03/22/23 23:25 Blood - Venous Blood Culture - Final No growth after 5 days. 03/22/23 23:25 Blood - Venous Blood Culture - Final No growth after 5 days. Progress Note: A&P Assessment and plan (1) TILA (acute kidney injury): Status: Acute (2) Ileus: Status: Acute (3) Cardiopulmonary arrest with successful resuscitation: Status: Acute (4) Alcoholic liver disease: Status: Acute (5) Encephalopathy, hepatic: Status: Acute Plan Patient is a 37 Y M with alcohol misuse c/b cirrhosis, psychiatric comorbidities, admitted 03/21 w/ alcohol intoxication; hospital course c/b ileus, c/b aspiration, c/b hypoxic cardiac arrest, as well as persistent encephalopathy, acute renal insufficiency N: encephalopathy, likely toxic-metabolic; to continue lactulose stool output goal 2 L per day CV: prior hypoxic cardiac arrest, hypotension, resolved R: aspiration pneumonia, c/b hypoxic cardiac arrest; intubated; wean ventilator as tolerated GI: ileus, s/p neostigmine x3, with some improvement; c/f acute cholecystitis, possible cholecystostomy tube placement w/ interventional radiology; alcohol misuse c/b cirrhosis : acute renal insufficiency, non-oligouric, improving on bumetanide BID; appreciate nephrology recommendations H: anemia; possible upper GI source; to continue to monitor; to hold DVT prophylaxis ID: aspiration pneumonia; worsening leukocytosis on ceftriaxone; broadened vancomycin, cefepime, and metronidazole; c/f acute cholecystitis, as described above P: no acute issues Quality Stroke Does the patient have a stroke diagnosis?: No VTE Prior VTE?: No VTE Risk Level:: Medical - moderate - high VTE Device Contraindication: N/A - Device Ordered VTE Drug Contraindication: Treatment Not Tolerated
[2023-04-03] MEDS: propofoL 1,000 MG/100 ML VIAL 20.7 MG IVCONT ×2 (08:12→12:25)
[2023-04-03 08:16] LABS: Glucose, Whole Blood 153 mg/dL (60-115)
[2023-04-03] MEDS: Lactulose 20 GM/30 ML SOLUTION 30 GM PO ×3 (08:19→20:23)
[2023-04-03] MEDS: Chlorhexidine Gluc Oral Rinse 15 ML MOUTHWASH BUCCAL ×3 (08:19→20:20)
[2023-04-03] MEDS: Bumetanide 1 MG/4 ML VIAL IVPUSH ×2 (08:19→17:09)
[2023-04-03] MEDS: Potassium Chloride/H20 10 MEQ/100 ML PIGGYBACK 100 MEQ IV ×4 (08:47→13:16)
[2023-04-03] MEDS: Erythromycin Lactobionate 250 MG in 0.9 % Sodium Chloride 100 ML 100 MG IV ×2 (09:05→15:55)
--- NOTE | 2023-04-03 09:43 | MHC.CLN ---
F/U PT REMAINS INTUBATED AND SEDATED DISCUSSED AT ROUNDS WITH REVIEWED LABS DISCUSSED WITH PHARMACY PPN TO CONTINUE AT 95ML/HR PROVIDES 1163KCALS (1709KCALS WITH SEDATION, 21 KCALS/KG IBW), 228G DEXTROSE, 97G PROTEIN (1.2 G/KG IBW) REPLETE LYTES NEEDED
--- NOTE | 2023-04-03 09:47 | P.PNNP_ITS ---
Subjective Subjective Date of Service: 04/03/23 Interval history: Events noted. Remains intubated FiO2 60% Physical Exam 2 Vital Signs: Vital Signs: Last Vital Signs Temp 98.6 F 04/03/23 09:00 Pulse 98 04/03/23 09:00 Resp 28 H 04/03/23 09:00 BP 153/85 H 04/03/23 09:00 Pulse Ox 98 04/03/23 09:00 O2 Del Method Mechanical Ventil ation 04/03/23 09:00 O2 Flow Rate 50 03/24/23 08:52 FiO2 60 04/03/23 09:00 BMI result Body Mass Index 33.8 Const: General: ill appearing Neck: Neck: Yes supple Resp: Auscultation: rhonchi Cardio: Palpation: no palpable S3 Heart sounds: no rubs GI: Palpation (GI): Soft to palpation Auscultation: normal bowel sounds Neuro: Motor exam (neuro): no asterixis Objective Data Labs 04/03/23 04:52 04/03/23 04:53 Labs: Laboratory Results - last 24 hr 04/02/23 04/02/23 04/02/23 09:54 18:01 18:48 WBC 17.8 H RBC 2.50 L Hgb 7.7 L Hct 24.2 L MCV 96.8 MCH 30.8 MCHC 31.8 RDW 29.2 H Plt Count 200 MPV 11.1 Immature Gran % (Auto) Cancelled Neut % (Auto) Cancelled Lymph % (Auto) Cancelled [place] % (Auto) Cancelled Eos % (Auto) Cancelled Baso % (Auto) Cancelled Lymph # (Auto) Cancelled [place] # (Auto) Cancelled Eos # (Auto) Cancelled Baso # (Auto) Cancelled Abs Immat Gran (auto) Cancelled Absolute Neuts (auto) Cancelled Absolute Nucleated RBC 0.040 H Nucleated RBC % (auto) 0.2 Neutrophils % (Manual) 80 H Band Neutrophils % 1 L Lymphocytes % (Manual) 7 L Atypical Lymphs % (Man) Monocytes % (Manual) 8 Eosinophils % (Manual) 2 Basophils % (Manual) 2 Metamyelocytes % Abs Neuts (Manual) 14.4 H Lymphocytes # (Manual) 1.2 Atyp Lymphs # (Manual) Monocytes # (Manual) 1.4 H Eosinophils # (Manual) 0.4 Basophils # (Manual) 0.4 H Metamyelocytes # Hypersegmented Neuts PRESENT Toxic Vacuolation Platelet Estimate NORMAL Plt Morphology Comment NORM RBC Morphology NOTED Polychromasia 1+ (0-2) Hypochromasia 1+ (5-14) Macrocytosis 1+ (5-14) Spherocytes 1+ (0-2) Target Cells Tear Drop Cells Ovalocytes Schistocytes 1+ (0-2) PT INR APTT Sodium Potassium Chloride Carbon Dioxide Anion Gap BUN Creatinine Estim Creat Clear Calc Estimated GFR POC Glucose Random Glucose Lactic Acid 1.0 Calcium Phosphorus Magnesium Albumin Triglycerides TSH 0.78 Random Vancomycin 3.2 L 04/03/23 04/03/23 04/03/23 04:52 04:53 08:13 WBC 15.8 H RBC 2.71 L Hgb 8.2 L Hct 26.5 L MCV 97.8 MCH 30.3 MCHC 30.9 L RDW 29.5 H Plt Count 200 MPV 12.2 Immature Gran % (Auto) Cancelled Neut % (Auto) Cancelled Lymph % (Auto) Cancelled [place] % (Auto) Cancelled Eos % (Auto) Cancelled Baso % (Auto) Cancelled Lymph # (Auto) Cancelled [place] # (Auto) Cancelled Eos # (Auto) Cancelled Baso # (Auto) Cancelled Abs Immat Gran (auto) Cancelled Absolute Neuts (auto) Cancelled Absolute Nucleated RBC 0.020 H Nucleated RBC % (auto) 0.1 Neutrophils % (Manual) 71 Band Neutrophils % 7 H Lymphocytes % (Manual) 9 L Atypical Lymphs % (Man) 1 Monocytes % (Manual) 5 Eosinophils % (Manual) 3 Basophils % (Manual) 3 H Metamyelocytes % 1 Abs Neuts (Manual) 12.3 H Lymphocytes # (Manual) 1.4 Atyp Lymphs # (Manual) 0.2 Monocytes # (Manual) 0.8 Eosinophils # (Manual) 0.5 H Basophils # (Manual) 0.5 H Metamyelocytes # 0.2 Hypersegmented Neuts Toxic Vacuolation PRESENT Platelet Estimate NORMAL Plt Morphology Comment NORMAL RBC Morphology NOTED Polychromasia 1+ (0-2) Hypochromasia 1+ (5-14) Macrocytosis 1+ (5-14) Spherocytes Target Cells 1+ (5-14) Tear Drop Cells 1+ (0-2) Ovalocytes 1+ (5-14) Schistocytes 1+ (0-2) PT 20.7 H INR 1.7 H APTT 39.9 H Sodium 149 H Potassium 2.7 L Chloride 116 H Carbon Dioxide 18 L Anion Gap 18 BUN 50 H Creatinine 1.77 H Estim Creat Clear Calc 73.5 Estimated GFR 43 POC Glucose 153 H Random Glucose 333 H Lactic Acid Calcium 9.2 Phosphorus 2.9 Magnesium 2.3 Albumin 3.7 Triglycerides 296 H TSH Random Vancomycin Microbiology Microbiology Results: Microbiology 04/01/23 18:54 Blood - Venous Blood Culture - Preliminary No growth after 24 hours. 04/01/23 18:54 Blood - Venous Blood Culture - Preliminary No growth after 24 hours. 03/29/23 11:45 Sputum - Suctioned Gram Stain - Final 03/29/23 11:45 Sputum - Suctioned Sputum Culture - Final Staphylococcus aureus Escherichia coli 03/25/23 19:18 Blood - Venous Blood Culture - Final No growth after 5 days. 03/25/23 19:18 Blood - Venous Blood Culture - Final No growth after 5 days. 03/22/23 23:25 Blood - Venous Blood Culture - Final No growth after 5 days. 03/22/23 23:25 Blood - Venous Blood Culture - Final No growth after 5 days. Procedures Date of Service Date of Service: 04/03/23 Assessment & Plan Assessment and plan (1) TILA (acute kidney injury): Status: Acute (2) Metabolic acidosis: Status: Acute (3) Anemia: Status: Acute Plan 37-year-old man with a history of cardiac arrest currently his acute kidney injury most likely due to ischemic ATN. No evidence of obstruction. active glomerulonephritis or interstitial disease. -unlikely He is critically ill and intubated. Mild hypernatremia due to free water deficit secondary to loop diuretics. Next item hypokalemia due to diuretic induced potassium loss. Recommendation Agree with diuresis Can change loop diuretic to thiazide which should correct hypernatremia by decreasing free water clearance Watch urine output closely. Continue to Avoid hypotension and nephrotoxins. At present is no absolute indication for dialysis. Concur with current medical management and will follow along with the team. Time Spent With Patient Time: Total time managing care of this patient today ____ minutes. Progress Note: Quality Stroke Does the patient have a stroke diagnosis?: No
[2023-04-03] MEDS: Phytonadione (Vit K1) 10 MG in 0.9 % Sodium Chloride 50 ML 51 MG IV (10:05)
--- NOTE | 2023-04-03 11:00 | P.CNNE_ITS ---
History of Present Illness Data of Consult Service Date: 04/03/23 Primary Care Provider: Rudy Zelaya PA-C HPI Reason for consult: Encephalopathy 37 years old man who probably suffer from alcoholic liver disease was admitted on the floor when he had cardiac arrest. CPR was given and cord lasted for few minutes. Now he was in intensive care unit intubated and sedated. Sedation with propofol was turned off to examine him. There was no sign of any obvious seizure-like episode. Review of Systems 2 Review of Systems: Could not be done with him PMFSH Past Medical History Medical History Obese Annual physical exam Elevated LFTs Screening for hypothyroidism Screening for hypercholesterolemia Screening for diabetes mellitus (DM) History of epididymitis Erectile dysfunction Orchalgia Frequency of urination Anxiety Erectile dysfunction Chronic lower back pain Fibromyalgia Family History Family History Father Osteoarthritis HTN (hypertension) Heart attack, Onset Age: 67 Mother No problems noted. Brother IBS (irritable bowel syndrome) Other Mental health disorder Surgical History Surgical History History of shoulder surgery Social History Social History Household Members: Significant Other Household Members Other:: girlfriend, Veda Housing: House Do you presently have visiting nurse or other home services: No Alcohol intake: current Alcohol intake frequency: 3 or more drinks per day Alcohol type: hard liquor Comment: N/A Patient Tobacco Use Status: Former Tobacco user Tobacco use type: Cigar e-Cigarette/Vaping Use: Former Use Second Hand Smoke Exposure: No Substance Use Type: Marijuana service: No Current occupational status: employed 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 Cognitive needs: No Hearing needs: No Vision needs: No Meds Allergies Allergy/AdvReac Type Severity Reaction Status Date / Time No Known Allergies Allergy Mild NONE Verified 03/21/23 11:26 Active Medications: Current Medications Albuterol Sulfate (Albuterol Sulfate (0.083%) 2.5 Mg/3 Ml Vial.Neb) 2.5 mg INHALE Q2H PRN PRN Reason: Wheezing Last Admin: 03/31/23 20:07 Dose: 2.5 mg Bumetanide (Bumetanide 1 Mg/4 Ml Vial) 1 mg IVPUSH BID@0900,1700 [facility]; Protocol Last Admin: 04/03/23 08:19 Dose: 1 mg Chlorhexidine Gluconate (Chlorhexidine Gluc Oral Rinse 15 Ml Mouthwash) 15 ml BUCCAL TID [facility] Last Admin: 04/03/23 08:19 Dose: 15 ml Dextrose (Dextrose 50 % 25 Gm/50 Ml Syringe) 25 gm IVPUSH Q15M PRN; Protocol PRN Reason: per Hypoglycemia Standing Ord. Glucose (Glucose Gel 15 Gm Gel..Gram.) 15 gm PO Q15M PRN; Protocol PRN Reason: per Hypoglycemia Standing Ord. Propofol (Diprivan) 1,000 mg in 100 mls @ 0 mls/hr IVCONT .Q0M [facility]; Protocol Last Admin: 04/03/23 08:12 Dose: 30 mcg/kg/min, 20.7 mls/hr Acetaminophen (Ofirmev) 1,000 mg in 100 mls @ 400 mls/hr IV Q12H PRN PRN Reason: Fever >101 Last Infusion: 04/01/23 15:22 Dose: Infused Cefepime HCl 2 gm/ Sodium (Chloride) 50 mls @ 100 mls/hr IV Q8H [facility] Last Infusion: 04/03/23 08:56 Dose: Infused Metronidazole (Flagyl) 500 mg in 100 mls @ 100 mls/hr IV Q8H [facility] Last Admin: 04/03/23 10:56 Dose: 100 mls/hr Nutrition (Parenteral) (Parenteral Nutrition) 2,280 mls @ 95 mls/hr IV .Q24H [facility]; Protocol Stop: 04/03/23 20:59 Last Admin: 04/02/23 21:41 Dose: 95 mls/hr Vancomycin HCl 1,250 mg/ (Sodium Chloride) 250 mls @ 166.667 mls/hr IV Q24H [facility] Thiamine HCl 200 mg/ Sodium (Chloride) 102 mls @ 204 mls/hr IV Q12H [facility] Last Infusion: 04/03/23 05:00 Dose: Infused Erythromycin Lactobionate 250 (mg/ Sodium Chloride) 100 mls @ 100 mls/hr IV Q8H [facility] Last Admin: 04/03/23 09:05 Dose: 100 mls/hr Potassium Chloride (Potassium Chloride/H20) 10 meq in 100 mls @ 100 mls/hr IV Q1H [facility] Stop: 04/03/23 12:14 Last Admin: 04/03/23 10:55 Dose: 100 mls/hr Insulin Human Lispro (Insulin Lispro 100 Unit/Ml 3 Ml Vial) 0 unit SUBCUT Q6H [facility]; Protocol Stop: 04/04/23 07:48 Last Admin: 04/03/23 08:39 Dose: Not Given Lactulose (Lactulose 20 Gm/30 Ml Solution) 30 gm PO TID [facility] Last Admin: 04/03/23 08:19 Dose: 30 gm Lactulose (Lactulose 320 Gm/480 Ml Solution) 200 gm IA Q6H [facility] Last Admin: 04/03/23 03:03 Dose: 200 gm Midazolam HCl (Midazolam Hcl/Pf 2 Mg/2 Ml Vial) 2 mg IVPUSH Q15M PRN PRN Reason: Ventilator synchrony Last Admin: 03/31/23 12:16 Dose: 2 mg Morphine Sulfate (Morphine Sulfate 4 Mg/Ml Cartridge) 2 mg IVPUSH Q4H PRN; Protocol PRN Reason: Pain, Severe (Pain Scale 7-10) Last Admin: 03/22/23 15:59 Dose: 2 mg Naloxone HCl (Naloxone Hcl 0.4 Mg/Ml Vial) 0.2 mg IVPUSH Q2M PRN PRN Reason: Excessive sedation or RR < 8 Pantoprazole Sodium (Pantoprazole Sodium 40 Mg/10 Ml Vial) 40 mg IVPUSH BID@0630,1630 [facility] Last Admin: 04/03/23 06:13 Dose: 40 mg Pharmacy Consult (Consult Rx Parenteral Nutrition Ordering) 1 each MISCELLANE DAILY PRN PRN Reason: Consult order Pharmacy Consult (Consult Rx Vancomycin Dosing) 1 each MISCELLANE DAILY PRN PRN Reason: Consult order Sodium Chloride (0.9 % Sodium Chloride Flush 3 Ml Syringe) 3 ml IVFLUSH QSHIFT [facility] Last Admin: 03/22/23 16:00 Dose: 3 ml Home Medications Medication Instructions Recorded Confirmed Last Taken Type propranolol 10 mg tablet 10 mg PO BID PRN Anxiety 10/17/22 03/21/23 Unknown History albuterol sulfate 90 mcg/actuation 1 puff PO QID PRN Shortness Of 03/21/23 03/21/23 Unknown History aerosol inhaler Breath Or Wheezing betamethasone dipropionate 0.05 % 1 appl topical DAILY PRN Rash 03/21/23 03/21/23 Unknown History topical cream sennosides 8.6 mg tablet (senna) 8.6 mg PO BEDTIME PRN constipation 03/21/23 03/21/23 Unknown History Physical Exam 2 Vital Signs: Vital Signs: Last Vital Signs Temp 98.4 F 04/03/23 10:00 Pulse 101 H 04/03/23 10:00 Resp 30 H 04/03/23 10:00 BP 142/88 H 04/03/23 10:00 Pulse Ox 99 04/03/23 10:00 O2 Del Method Mechanical Ventil ation 04/03/23 10:00 O2 Flow Rate 50 03/24/23 08:52 FiO2 60 04/03/23 10:00 BMI result Body Mass Index 33.8 Neuro: Other: No response to verbal stimuli. No definite respond to pain. Pupils were about 3-4 mm reactive to light. Sclera was yellow. There was mild movement of eyes but with lateral neck movement there was no significant movement of eyes. Gag was minimal to none. Reflexes were absent with flat plantars. No obvious abnormal posture movements were noted. Results Labs 04/03/23 04:52 04/03/23 04:53 Labs: Short CBC 04/02/23 04/03/23 Range/Units 18:01 04:52 WBC 17.8 H 15.8 H (4.8-10.8) X10*3/uL Hgb 7.7 L 8.2 L (14.0-18.0) g/dl Hct 24.2 L 26.5 L (42.0-52.0) % Plt Count 200 200 (160-400) X10*3/uL BMP 04/03/23 04:53 Sodium 149 H Potassium 2.7 L Chloride 116 H Carbon Dioxide 18 L BUN 50 H Creatinine 1.77 H Calcium 9.2 Liver Function 04/03/23 Range/Units 04:53 Albumin 3.7 (3.5-5.0) g/dL Head CT did not reveal any obvious abnormality per Microbiology Microbiology Results: Microbiology 04/01/23 18:54 Blood - Venous Blood Culture - Preliminary No growth after 24 hours. 04/01/23 18:54 Blood - Venous Blood Culture - Preliminary No growth after 24 hours. 03/29/23 11:45 Sputum - Suctioned Gram Stain - Final 03/29/23 11:45 Sputum - Suctioned Sputum Culture - Final Staphylococcus aureus Escherichia coli 03/25/23 19:18 Blood - Venous Blood Culture - Final No growth after 5 days. 03/25/23 19:18 Blood - Venous Blood Culture - Final No growth after 5 days. 03/22/23 23:25 Blood - Venous Blood Culture - Final No growth after 5 days. 03/22/23 23:25 Blood - Venous Blood Culture - Final No growth after 5 days. Assessment and Plan (1) Encephalopathy: Status: Acute 37 years old man with multifactorial encephalopathy including metabolic toxic etiology and anoxia. Combination resulted in a situation significantly impacting his prognosis. For now, because of his relative young age, I recommend continuing treatment for hepatic disease to minimize contribution from metabolic toxic etiologies. No specific treatment is available for anoxic encephalopathy an EEG is also recommended to rule out nonepileptic status per Procedures Date of Service Date of Service: 04/03/23
--- NOTE | 2023-04-03 11:26 | PM.CCPN ---
Physical Exam Vital Signs: Vital Signs: Last Vital Signs Temp 98.3 F 04/03/23 11:00 Pulse 106 H 04/03/23 11:00 Resp 34 H 04/03/23 11:00 BP 142/84 H 04/03/23 11:00 Pulse Ox 98 04/03/23 11:00 O2 Del Method Mechanical Ventil ation 04/03/23 11:00 O2 Flow Rate 50 03/24/23 08:52 FiO2 60 04/03/23 11:14 BMI result Body Mass Index 33.8 Const: General: no acute distress, ill appearing and other (sedated) HEENT: Head: Yes normocephalic and Yes atraumatic Eyes: Conjunctivae: conjunctival abnormal Sclerae: scleral abnormal (icteric) Pupils: Equal, round and reactive pupils present EOM: Nystagmus present (vertical downward) Neck: Neck: Yes trachea midline and Yes no JVD Resp: Effort & Inspection: labored and tachypneic Auscultation: rhonchi Cardio: Rate: tachycardic Rhythm: regular rhythm Heart sounds: S1 normal heart sound present and S2 normal heart sound present GI: Inspection: Yes distended Palpation (GI): Firmness to palpation present (GI) Auscultation: Hypoactive bowel sounds present Skin: General skin exam: no rashes or lesions noted and jaundice Neuro: Other: deferred Cranial nerves: Yes Equal, round and reactive pupils present and Yes Nystagmus present (vertical downward) Extrem: General: Yes edema (bilateral upper and lower extremities) Objective Data Labs 04/03/23 04:52 04/03/23 04:53 Labs: Laboratory Results - last 24 hr 04/02/23 04/02/23 04/03/23 18:01 18:48 04:52 WBC 17.8 H 15.8 H RBC 2.50 L 2.71 L Hgb 7.7 L 8.2 L Hct 24.2 L 26.5 L MCV 96.8 97.8 MCH 30.8 30.3 MCHC 31.8 30.9 L RDW 29.2 H 29.5 H Plt Count 200 200 MPV 11.1 12.2 Immature Gran % (Auto) Cancelled Cancelled Neut % (Auto) Cancelled Cancelled Lymph % (Auto) Cancelled Cancelled [place] % (Auto) Cancelled Cancelled Eos % (Auto) Cancelled Cancelled Baso % (Auto) Cancelled Cancelled Lymph # (Auto) Cancelled Cancelled [place] # (Auto) Cancelled Cancelled Eos # (Auto) Cancelled Cancelled Baso # (Auto) Cancelled Cancelled Abs Immat Gran (auto) Cancelled Cancelled Absolute Neuts (auto) Cancelled Cancelled Absolute Nucleated RBC 0.040 H 0.020 H Nucleated RBC % (auto) 0.2 0.1 Neutrophils % (Manual) 80 H 71 Band Neutrophils % 1 L 7 H Lymphocytes % (Manual) 7 L 9 L Atypical Lymphs % (Man) 1 Monocytes % (Manual) 8 5 Eosinophils % (Manual) 2 3 Basophils % (Manual) 2 3 H Metamyelocytes % 1 Abs Neuts (Manual) 14.4 H 12.3 H Lymphocytes # (Manual) 1.2 1.4 Atyp Lymphs # (Manual) 0.2 Monocytes # (Manual) 1.4 H 0.8 Eosinophils # (Manual) 0.4 0.5 H Basophils # (Manual) 0.4 H 0.5 H Metamyelocytes # 0.2 Hypersegmented Neuts PRESENT Toxic Vacuolation PRESENT Platelet Estimate NORMAL NORMAL Plt Morphology Comment NORM NORMAL RBC Morphology NOTED NOTED Polychromasia 1+ (0-2) 1+ (0-2) Hypochromasia 1+ (5-14) 1+ (5-14) Macrocytosis 1+ (5-14) 1+ (5-14) Spherocytes 1+ (0-2) Target Cells 1+ (5-14) Tear Drop Cells 1+ (0-2) Ovalocytes 1+ (5-14) Schistocytes 1+ (0-2) 1+ (0-2) PT 20.7 H INR 1.7 H APTT 39.9 H Sodium Potassium Chloride Carbon Dioxide Anion Gap BUN Creatinine Estim Creat Clear Calc Estimated GFR POC Glucose Random Glucose Calcium Phosphorus Magnesium Albumin Triglycerides TSH 0.78 04/03/23 04/03/23 04:53 08:13 WBC RBC Hgb Hct MCV MCH MCHC RDW Plt Count MPV Immature Gran % (Auto) Neut % (Auto) Lymph % (Auto) [place] % (Auto) Eos % (Auto) Baso % (Auto) Lymph # (Auto) [place] # (Auto) Eos # (Auto) Baso # (Auto) Abs Immat Gran (auto) Absolute Neuts (auto) Absolute Nucleated RBC Nucleated RBC % (auto) Neutrophils % (Manual) Band Neutrophils % Lymphocytes % (Manual) Atypical Lymphs % (Man) Monocytes % (Manual) Eosinophils % (Manual) Basophils % (Manual) Metamyelocytes % Abs Neuts (Manual) Lymphocytes # (Manual) Atyp Lymphs # (Manual) Monocytes # (Manual) Eosinophils # (Manual) Basophils # (Manual) Metamyelocytes # Hypersegmented Neuts Toxic Vacuolation Platelet Estimate Plt Morphology Comment RBC Morphology Polychromasia Hypochromasia Macrocytosis Spherocytes Target Cells Tear Drop Cells Ovalocytes Schistocytes PT INR APTT Sodium 149 H Potassium 2.7 L Chloride 116 H Carbon Dioxide 18 L Anion Gap 18 BUN 50 H Creatinine 1.77 H Estim Creat Clear Calc 73.5 Estimated GFR 43 POC Glucose 153 H Random Glucose 333 H Calcium 9.2 Phosphorus 2.9 Magnesium 2.3 Albumin 3.7 Triglycerides 296 H TSH Microbiology Microbiology Results: Microbiology 04/01/23 18:54 Blood - Venous Blood Culture - Preliminary No growth after 24 hours. 04/01/23 18:54 Blood - Venous Blood Culture - Preliminary No growth after 24 hours. 03/29/23 11:45 Sputum - Suctioned Gram Stain - Final 03/29/23 11:45 Sputum - Suctioned Sputum Culture - Final Staphylococcus aureus Escherichia coli 03/25/23 19:18 Blood - Venous Blood Culture - Final No growth after 5 days. 03/25/23 19:18 Blood - Venous Blood Culture - Final No growth after 5 days. 03/22/23 23:25 Blood - Venous Blood Culture - Final No growth after 5 days. 03/22/23 23:25 Blood - Venous Blood Culture - Final No growth after 5 days. Progress Note: A&P Assessment and plan Plan This is a 37-year-old man with a past medical history of alcohol abuse, liver cirrhosis, bipolar disorder, major depressive disorder, and was admitted on 03/21/23 for acute alcohol intoxication. The patient was admitted to medicine for abdominal pain which was evaluated by general surgery one day later with no acute findings. The hospital state was complicated by a cardiac arrest secondary to aspiration of bilious contents. ROSC was achieved after three rounds of CPR. The patient was subsequently intubated and transferred to the intensive care unit. A CT scan of the abdomen and pelvis demonstrated dilated bowel loops with no transition point. There was no intervention warranted per general surgery. The patient has had significant encephalopathy and minimal arousal with sedation vacation. An MRI of the brain on 03/28 was essentially normal. Patient was found to have suspected cholecystitis on ultrasound and CT. Neurologic: patient has encephalopathy secondary to hepatic disease. Ammonia level was elevated at about 100 as well. Patient is also sedated with propofol. The patient has been receiving lactulose 20 g once daily with a goal of 2 L stool output. We will likely start rifaximin which is indicated for patients with hepatic encephalopathy with no clinical improvement with lactulose. This is on hold for now due to procedures for the day and patient movement. Neurology saw the patient earlier this morning and we are awaiting their recommendations. . Cardiovascular: status post hypoxic cardiac arrest with hypertension however this issue has resolved. The patient has been tachycardic with normal sinus rhythm with rates in the low 100s. The patient will also be getting a triple lumen catheter to be placed later today due to access difficulties from frail veins and extremity edema. Respiratory: patient had an episode of hypoxic cardiac arrest secondary to aspiration with subsequent aspiration pneumonia. The patient is currently intubated and ventilated on AC/VC+ RR set at 24, tV of 350, peep of 5, and FiO2 of 60%. Patient was treated for their aspiration pneumonia and has since then resolved. The patient has had daily unsuccessful weaning trials due to dyssynchrony. We will continue to wean the patient from the vent. Gastrointestinal: patient has an ileus of unknown origin. Patient also has severe liver disease evidenced on CT scan showing hepatic steatosis, hepatomegaly, splenomegaly and portal hypertension. The patient has been given neostigmine three separate times with moderate improvement and adequate motility. G.I. has given their input however we are going to ask them again as well as for any surgery recommendations. We have also calculated a MELD score and have determined a 30% 90 day mortality for the patient. Separately the patient was found to have gall bladder sludge and stones on a saravia scan The stones were evaluated with ultrasound overnight and IR was consulted for a percutaneous cholecystostomy which is scheduled for later today. Renal/Genitourinary: the patient has a resolving renal insufficiency that is non-oliguric. The patient has been followed by nephrology, please see their note for further details and recommendations. As of right now the patient is currently receiving 1 mg of Bumex twice per day for edema and the renal insufficiency and will be continued. Hematology: patient currently has an anemia however it is suspected that it is from nutritional deficiencies. Patient is receiving TPN. Please see health safety manager notes. Patient had a scant amount of blood from rectal tube likely due to trauma from tube. Patient also has bleeding gums during oral care. Current INR of 1.7 up from 1.5 yesterday. Will continue to monitor for bleeding diathesis. Infectious disease: patient had aspiration pneumonia which has since been resolved. Currently patient has worsening leukocytosis and fever. The patient has been placed on cefepime, vancomycin, and metronidazole for broad-spectrum coverage. Patient also receiving Tylenol for fever. Currently the patient does not have any positive cultures in sputum, blood, or urine. A saravia CT scan and ultrasound combined to show cholecystitis. IR will be placing a drain later today. Prophylaxis: 40 mg of pantoprazole twice daily for G.I. prophylaxis. DVT prophylaxis with SCD?s. Holding anticoagulation due to anemia and bleeding tendencies. Quality Stroke Does the patient have a stroke diagnosis?: No VTE Prior VTE?: No VTE Risk Level:: Medical - moderate - high VTE Device Contraindication: N/A - Device Ordered VTE Drug Contraindication: Treatment Not Tolerated
[2023-04-03] MEDS: vancomycin HCL 1,250 MG in 0.9 % Sodium Chloride 250 ML 166.67 MG IV (12:03)
[2023-04-03] MEDS: Midazolam HCl/PF 2 MG/2 ML VIAL IVPUSH (12:38)
--- NOTE | 2023-04-03 12:52 | W.PM.CCHP ---
Procedures Date of Service Date of Service: 04/03/23 Central Line Placement Right IJ: Consent for Procedure: Elective - informed consent obtained Time out performed: Yes Sterile Technique Used: Yes Patient placed on monitor/pulse ox: Yes MD prep: mask, gown and gloves Central line prep: Chlorhexidine scrub Ultrasound used for placement: Yes Central line lumen inserted: triple Post procedure: sutured in place, all ports aspirated, flushed, capped and sterile dressing applied Post procedure x-ray: tip of catheter in good position Patient tolerated procedure: well and no complications Complications: none
[2023-04-03 13:15] LABS: Ammonia 59 umol/L (13-55)
[2023-04-03 13:19] LABS: Bilirubin Total 11.3 mg/dL (0.0-1.0)
[2023-04-03 13:29] LABS: Glucose, Whole Blood 150 mg/dL (60-115)
--- NOTE | 2023-04-03 13:48 | HE.PHANOTE ---
RE: VANCO Patient was restarted on 04/02/23 with loading dose of 2000mg then scheduled dose of 1250mg q24h with predicted AUC of 412 and trough of 9.1. Random lab was scheduled for 04/04/23 @0900 to determine if dose needs to be adjusted.
--- NOTE | 2023-04-03 14:55 | HO.RADPN ---
RADIOLOGY Narrative Narrative: Procedure Note: US cholecystostomy tube 8 fr drain placed under US. 60 cc dark, thick bile aspirated. Specimen sent for culture No immediate complications. Full dictation to follow Russell PINK Interventional Radiology
[2023-04-03 16:28] LABS: Glucose, Whole Blood 175 mg/dL (60-115)
[2023-04-03] MEDS: propofoL 1,000 MG/100 ML VIAL 10.35 MG IVCONT (17:04)
[2023-04-03] MEDS: Parenteral Nutrition 2,280 ML 95 ML IV (20:26)
[2023-04-04] VITALS (33 sets, daily range): BP systolic 95–158; BP diastolic 41–93; PULSE 93–114; RESP 23–36; TEMP 35–38.7; O2SAT 92–100; BMI 34.8
[2023-04-04 00:17] LABS: Glucose, Whole Blood 141 mg/dL (60-115)
[2023-04-04] MEDS: Erythromycin Lactobionate 250 MG in 0.9 % Sodium Chloride 100 ML 100 MG IV ×4 (00:52→22:43)
[2023-04-04] MEDS: cefEPime HCl 2 GM in 0.9 % Sodium Chloride 50 ML IV ×3 (01:00→16:04)
[2023-04-04] MEDS: Midazolam HCl/PF 2 MG/2 ML VIAL IVPUSH (01:04)
[2023-04-04] MEDS: propofoL 1,000 MG/100 ML VIAL 10.35 MG IVCONT ×2 (01:06→07:19)
[2023-04-04] MEDS: metroNIDAZOLE/NS 500 MG/100 ML PIGGYBACK 100 MG IV ×3 (02:24→17:19)
[2023-04-04] MEDS: Lactulose 320 GM/480 ML SOLUTION 200 GM PR ×3 (02:28→14:04)
[2023-04-04] MEDS: Thiamine HCL 200 MG in 0.9 % Sodium Chloride 100 ML IV ×2 (04:32→15:01)
[2023-04-04 05:18] LABS: VBG Base Excess 1.2 mmol/L; VBG HCO3 25 mmol/L (22-26); VBG pCO2 38 mmHg; VBG pH 7.42 (7.32-7.43); VBG pO2 66 mmHg
[2023-04-04 05:19] LABS: Venous Blood Gas Refer to POC result
[2023-04-04 05:41] LABS: Basophils Absolute Auto 0.2 X10*3/uL (0.0-0.2); Basophils Percent Auto 1.1 % (0-2); Eosinophils Absolute Auto 0.4 X10*3/uL (0.0-0.4); Eosinophils Percent Auto 2.6 % (0-4); Hematocrit 24.4 % (42.0-52.0); Hemoglobin 7.5 g/dl (14.0-18.0); Imm Gran Abs Auto 0.65 X10*3/uL (0.00-0.03); Imm Gran Pct Auto 4.3 % (0.0-0.4); Lymphocytes Absolute Auto 1.6 X10*3/uL (1.2-4.9); Lymphocytes Percent Auto 10.7 % (20-40); MANUAL DIFF FLAG SCAN; Mean Corpuscular HGB Conc 30.7 g/dl (31.0-36.0); Mean Corpuscular Volume 97.6 fL (80.0-98.0); Mean Platelet Volume 11.8 fL (9.4-12.4); Monocytes Absolute Auto 1.8 X10*3/uL (0.1-1.2); Monocytes Percent Auto 11.9 % (2-11); NRBC Pct Auto 0.2 /100WBC (0.0-0.2); Neutrophils Absolute Auto 10.6 x10*3/uL (2.0-8.3); Neutrophils Percent Auto 69.4 % (45-73); Platelet Count 164 X10*3/uL (160-400); SCAN SMEAR FLAG 1; White Blood Count 15.2 X10*3/uL (4.8-10.8)
[2023-04-04] MEDS: Pantoprazole Sodium 40 MG/10 ML VIAL IVPUSH ×2 (05:42→15:02)
[2023-04-04 06:02] LABS: Anion Gap 13 (12-20); Blood Urea Nitrogen 51 mg/dL (9-16); Carbon Dioxide 24 mmol/L (22-29); Chloride 119 mmol/L (96-108); Estimated Glomerular Filt Rate 49; Glucose Random 135 mg/dL (60-115); Magnesium 2.2 mg/dL (1.6-2.6); Phosphorus 2.2 mg/dL (2.7-4.5); Potassium 2.5 mmol/L (3.3-5.1); Sodium 153 mmol/L (135-145); Triglycerides 275 mg/dL (<150)
[2023-04-04] MEDS: Potassium Chloride/H20 40 MEQ/100 ML PIGGYBACK 100 MEQ IV (06:20)
--- NOTE | 2023-04-04 06:31 | PC.NURSE ---
PT REMAINS ON AC/VC+ VENT SETTINGS. RESP RATE REMAINS HIGH 20 S-30'S. O2 SAT MID 90'S. PT IS UNRESPONSIVE, FLACCID, WEAK COUGH, NO GAG REFLEX. PROPOFOL AT 15 MCG/KG/MIN. ONE DOSE OF PRN VERSED GIVEN DURING THE NIGHT FOR INCREASED BP, HR AND RR. LACTULOSE ENEMA GIVEN X2 ALONG WITH LACTULOSE VIA OGT ORDERED. RECTAL TUBE IN PLACE DRAINING BROWN/GREEN STOOL LARGE AMOUNTS. SEE I/O DOCUMENTATION. CECILLE DRAIN TO RT ABD DRAINING BILE FLUID AND DRAINED 265ML FROM [id number]. ABD IS DISTENDED, SEMI FIRM BUT IMPROVED AND NOT DISTENDED PREVIOUS DAYS. U/O GOOD. BP STABLE. TEMP 101 CORE. COOL SPONGE BATH GIVEN.
[2023-04-04 07:10] LABS: SLIDE REVIEW VERIFIED
[2023-04-04] MEDS: Potassium Phosphate/NS 15 MMOL/250 ML PLAST..BAG 62.5 MMOL IV ×2 (07:19→11:32)
--- NOTE | 2023-04-04 07:30 | P.PNCC_ITS ---
Subjective Subjective Date of Service: 04/04/23 Interval History: no significant overnight events Critical Care Time (minutes): 90 Physical Exam 2 Vital Signs: Vital Signs: Last Vital Signs Temp 100.8 F H 04/04/23 07:00 Pulse 106 H 04/04/23 07:00 Resp 30 H 04/04/23 07:00 BP 133/71 04/04/23 07:00 Pulse Ox 100 04/04/23 07:00 O2 Del Method Mechanical Ventil ation 04/04/23 07:00 O2 Flow Rate 50 03/24/23 08:52 FiO2 40 04/04/23 07:00 BMI result Body Mass Index 34.8 Const: Other: intubated, on minimal sedation; flickers eyes with noxious stimulus General: no acute distress HEENT: Head: Yes normal to inspection, Yes normocephalic and Yes atraumatic Eyes: Other: scleral icterus General: appearance normal, both eyes and all related structures Neck: Neck: Yes normal visual inspection, Yes full ROM, Yes no meningeal signs and Yes supple Chest: Chest palpation & inspection: normal inspection of the chest Resp: Other: no appreciable rales, rhonchi, wheezing Cardio: Rate: regular rate Rhythm: regular rhythm GI: Other: interval improvement of distension; compressible; no appreciable guarding, rebound; percutaneous drain in RUQ clean, dry, intact : Male General Exam: Yes normal external exam Skin: Other: jaundice throughout Neuro: General: tone normal, no meningeal signs and no focal motor deficits Extrem: Other: 2+ pitting edema to bilateral knees General: Yes capillary refill normal Psych: Other: unable to assess Objective Data Labs 04/04/23 05:14 04/04/23 05:14 Labs: Laboratory Results - last 24 hr 04/03/23 04/03/23 04/03/23 08:13 13:01 13:25 WBC RBC Hgb Hct MCV MCH MCHC RDW Plt Count MPV Immature Gran % (Auto) Neut % (Auto) Lymph % (Auto) [place] % (Auto) Eos % (Auto) Baso % (Auto) Lymph # (Auto) [place] # (Auto) Eos # (Auto) Baso # (Auto) Abs Immat Gran (auto) Absolute Neuts (auto) Absolute Nucleated RBC Nucleated RBC % (auto) Smear Tech's Comments VBG pH VBG pCO2 VBG pO2 VBG HCO3 VBG O2 Saturation VBG Base Excess Sodium Potassium Chloride Carbon Dioxide Anion Gap BUN Creatinine Estim Creat Clear Calc Estimated GFR POC Glucose 153 H 150 H Random Glucose Calcium Phosphorus Magnesium Total Bilirubin 11.3 H Ammonia 59 H Triglycerides Blood Type Antibody Screen 04/03/23 04/04/23 04/04/23 16:21 00:12 05:12 WBC RBC Hgb Hct MCV MCH MCHC RDW Plt Count MPV Immature Gran % (Auto) Neut % (Auto) Lymph % (Auto) [place] % (Auto) Eos % (Auto) Baso % (Auto) Lymph # (Auto) [place] # (Auto) Eos # (Auto) Baso # (Auto) Abs Immat Gran (auto) Absolute Neuts (auto) Absolute Nucleated RBC Nucleated RBC % (auto) Smear Tech's Comments VBG pH 7.42 VBG pCO2 38 VBG pO2 66 VBG HCO3 25 VBG O2 Saturation 90.0 VBG Base Excess 1.2 Sodium Potassium Chloride Carbon Dioxide Anion Gap BUN Creatinine Estim Creat Clear Calc Estimated GFR POC Glucose 175 H 141 H Random Glucose Calcium Phosphorus Magnesium Total Bilirubin Ammonia Triglycerides Blood Type Antibody Screen 04/04/23 05:14 WBC 15.2 H RBC 2.50 L Hgb 7.5 L Hct 24.4 L MCV 97.6 MCH 30.0 MCHC 30.7 L RDW 30.0 H Plt Count 164 MPV 11.8 Immature Gran % (Auto) 4.3 H Neut % (Auto) 69.4 Lymph % (Auto) 10.7 L [place] % (Auto) 11.9 H Eos % (Auto) 2.6 Baso % (Auto) 1.1 Lymph # (Auto) 1.6 [place] # (Auto) 1.8 H Eos # (Auto) 0.4 Baso # (Auto) 0.2 Abs Immat Gran (auto) 0.65 H Absolute Neuts (auto) 10.6 H Absolute Nucleated RBC 0.030 H Nucleated RBC % (auto) 0.2 Smear Tech's Comments VERIFIED VBG pH VBG pCO2 VBG pO2 VBG HCO3 VBG O2 Saturation VBG Base Excess Sodium 153 H Potassium 2.5 L* Chloride 119 H Carbon Dioxide 24 Anion Gap 13 BUN 51 H Creatinine 1.59 H Estim Creat Clear Calc 83.0 Estimated GFR 49 POC Glucose Random Glucose 135 H Calcium 9.0 Phosphorus 2.2 L Magnesium 2.2 Total Bilirubin Ammonia Triglycerides 275 H Blood Type O Positive Antibody Screen NEGATIVE Microbiology Microbiology Results: Microbiology 04/01/23 18:54 Blood - Venous Blood Culture - Preliminary No growth after 48 hours. 04/01/23 18:54 Blood - Venous Blood Culture - Preliminary No growth after 48 hours. 03/29/23 11:45 Sputum - Suctioned Gram Stain - Final 03/29/23 11:45 Sputum - Suctioned Sputum Culture - Final Staphylococcus aureus Escherichia coli 03/25/23 19:18 Blood - Venous Blood Culture - Final No growth after 5 days. 03/25/23 19:18 Blood - Venous Blood Culture - Final No growth after 5 days. 03/22/23 23:25 Blood - Venous Blood Culture - Final No growth after 5 days. 03/22/23 23:25 Blood - Venous Blood Culture - Final No growth after 5 days. Progress Note: A&P Assessment and plan (1) TILA (acute kidney injury): Status: Acute (2) Ileus: Status: Acute (3) Cardiopulmonary arrest with successful resuscitation: Status: Acute (4) Alcoholic liver disease: Status: Acute (5) Encephalopathy, hepatic: Status: Acute Plan Patient is a 37 Y M with alcohol misuse c/b cirrhosis, psychiatric comorbidities, admitted 03/21 w/ alcohol intoxication; hospital course c/b ileus, c/b aspiration, c/b hypoxic cardiac arrest, as well as persistent encephalopathy, acute renal insufficiency N: encephalopathy, likely toxic-metabolic; to continue lactulose stool output goal 2 L per day; minimize sedation as tolerated CV: prior hypoxic cardiac arrest, hypotension, resolved; tachycardia, likely d/t intravascular depletion; to tolerate to HR less than 110s-120s R: aspiration pneumonia, c/b hypoxic cardiac arrest; intubated; wean ventilator as tolerated GI: ileus, s/p neostigmine x3, with interval improvement; c/f acute cholecystitis, s/p cholecystostomy tube placement w/ interventional radiology 04/03; alcohol misuse c/b cirrhosis : acute renal insufficiency, non-oligouric, improving on bumetanide BID; appreciate nephrology recommendations; hypernatremia, to start D5W gtt H: anemia; possible upper GI source; to continue to monitor; to hold DVT prophylaxis ID: aspiration pneumonia; worsening leukocytosis on ceftriaxone; broadened vancomycin, cefepime, and metronidazole; c/f acute cholecystitis, as described above P: no acute issues Quality Stroke Does the patient have a stroke diagnosis?: No VTE Prior VTE?: No VTE Risk Level:: Medical - moderate - high VTE Device Contraindication: N/A - Device Ordered VTE Drug Contraindication: Treatment Not Tolerated
[2023-04-04] MEDS: Dextrose 5 % 1,000 ML 100 ML IVCONT ×2 (08:18→17:18)
[2023-04-04] MEDS: Lactulose 20 GM/30 ML SOLUTION 30 GM PO ×3 (09:09→21:00)
[2023-04-04] MEDS: Bumetanide 1 MG/4 ML VIAL IVPUSH ×2 (09:09→16:04)
[2023-04-04] MEDS: Chlorhexidine Gluc Oral Rinse 15 ML MOUTHWASH BUCCAL ×3 (09:40→20:59)
[2023-04-04 10:01] LABS: Vancomycin Random 10.3 mcg/mL (15-20)
--- NOTE | 2023-04-04 10:31 | HE.PHANOTE ---
RE: VANCO Random comes back as 10.3. Seeing that pt's renal function is improving and indication is respiratory infection, dose was increased to 1500mg q24h starting at 1100 (with predicted AUC of 428 and trough of 8.9). Another random is scheduled for 04/05/23@0900.
--- NOTE | 2023-04-04 10:34 | P.PNCC_ITS ---
Subjective Subjective Interval History: This is a 37-year-old man with a past medical history of alcohol abuse, liver cirrhosis, bipolar disorder, major depressive disorder, and was admitted on 03/21/23 for acute alcohol intoxication. The patient was admitted to medicine for abdominal pain which was evaluated by general surgery one day later with no acute findings. The hospital state was complicated by a cardiac arrest secondary to aspiration of bilious contents. ROSC was achieved after three rounds of CPR. The patient was subsequently intubated and transferred to the intensive care unit on 03/22. A CT scan of the abdomen and pelvis demonstrated dilated bowel loops with no transition point. There was no intervention warranted per general surgery. The patient has had significant encephalopathy and minimal arousal with sedation vacation. An MRI of the brain on 03/28 was essentially normal. Patient was found to have suspected cholecystitis on ultrasound and CT. Patient status post cholecystectomy tube on 04/03 by IR. Comment: 45 Physical Exam 2 Vital Signs: Vital Signs: Last Vital Signs Temp 100.8 F H 04/04/23 10:00 Pulse 108 H 04/04/23 10:00 Resp 36 H 04/04/23 10:00 BP 142/89 H 04/04/23 10:00 Pulse Ox 97 04/04/23 10:00 O2 Del Method Mechanical Ventil ation 04/04/23 10:00 O2 Flow Rate 50 03/24/23 08:52 FiO2 35 04/04/23 10:00 BMI result Body Mass Index 34.8 Const: Other: sedated General: ill appearing HEENT: Head: Yes normocephalic and Yes atraumatic Eyes: Conjunctivae: conjunctival abnormal (pale) Sclerae: scleral abnormal (icteric) Pupils: Equal, round and reactive pupils present EOM: Nystagmus present (vertical downward) Neck: Other: r neck central line c/d/i Neck: Yes no JVD Resp: Effort & Inspection: labored Auscultation: rhonchi and diminished lung sounds Cardio: Rate: tachycardic Rhythm: regular rhythm Heart sounds: S1 normal heart sound present and S2 normal heart sound present Peripheral pulses: P eripheral pulses 2+ throughout GI: Inspection: Yes distended Palpation (GI): Firmness to palpation present (GI) Auscultation: Hypoactive bowel sounds present Back/Spine/Pelvis: Sacrum: other (wound dressing c/d/i) Skin: General skin exam: no rashes or lesions noted Neuro: Other: sedated Cranial nerves: Yes Equal, round and reactive pupils present and Yes Nystagmus present (vertical downward) Extrem: General: Yes capillary refill normal and Yes edema (bilateral upper and lower extremity) Objective Data Labs 04/04/23 05:14 04/04/23 05:14 Labs: Laboratory Results - last 24 hr 04/03/23 04/03/23 04/03/23 13:01 13:25 16:21 WBC RBC Hgb Hct MCV MCH MCHC RDW Plt Count MPV Immature Gran % (Auto) Neut % (Auto) Lymph % (Auto) [place] % (Auto) Eos % (Auto) Baso % (Auto) Lymph # (Auto) [place] # (Auto) Eos # (Auto) Baso # (Auto) Abs Immat Gran (auto) Absolute Neuts (auto) Absolute Nucleated RBC Nucleated RBC % (auto) Smear Tech's Comments VBG pH VBG pCO2 VBG pO2 VBG HCO3 VBG O2 Saturation VBG Base Excess Sodium Potassium Chloride Carbon Dioxide Anion Gap BUN Creatinine Estim Creat Clear Calc Estimated GFR POC Glucose 150 H 175 H Random Glucose Calcium Phosphorus Magnesium Total Bilirubin 11.3 H Ammonia 59 H Triglycerides Random Vancomycin Blood Type Antibody Screen 04/04/23 04/04/23 04/04/23 00:12 05:12 05:14 WBC 15.2 H RBC 2.50 L Hgb 7.5 L Hct 24.4 L MCV 97.6 MCH 30.0 MCHC 30.7 L RDW 30.0 H Plt Count 164 MPV 11.8 Immature Gran % (Auto) 4.3 H Neut % (Auto) 69.4 Lymph % (Auto) 10.7 L [place] % (Auto) 11.9 H Eos % (Auto) 2.6 Baso % (Auto) 1.1 Lymph # (Auto) 1.6 [place] # (Auto) 1.8 H Eos # (Auto) 0.4 Baso # (Auto) 0.2 Abs Immat Gran (auto) 0.65 H Absolute Neuts (auto) 10.6 H Absolute Nucleated RBC 0.030 H Nucleated RBC % (auto) 0.2 Smear Tech's Comments VERIFIED VBG pH 7.42 VBG pCO2 38 VBG pO2 66 VBG HCO3 25 VBG O2 Saturation 90.0 VBG Base Excess 1.2 Sodium 153 H Potassium 2.5 L* Chloride 119 H Carbon Dioxide 24 Anion Gap 13 BUN 51 H Creatinine 1.59 H Estim Creat Clear Calc 83.0 Estimated GFR 49 POC Glucose 141 H Random Glucose 135 H Calcium 9.0 Phosphorus 2.2 L Magnesium 2.2 Total Bilirubin Ammonia Triglycerides 275 H Random Vancomycin Blood Type O Positive Antibody Screen NEGATIVE 04/04/23 09:35 WBC RBC Hgb Hct MCV MCH MCHC RDW Plt Count MPV Immature Gran % (Auto) Neut % (Auto) Lymph % (Auto) [place] % (Auto) Eos % (Auto) Baso % (Auto) Lymph # (Auto) [place] # (Auto) Eos # (Auto) Baso # (Auto) Abs Immat Gran (auto) Absolute Neuts (auto) Absolute Nucleated RBC Nucleated RBC % (auto) Smear Tech's Comments VBG pH VBG pCO2 VBG pO2 VBG HCO3 VBG O2 Saturation VBG Base Excess Sodium Potassium Chloride Carbon Dioxide Anion Gap BUN Creatinine Estim Creat Clear Calc Estimated GFR POC Glucose Random Glucose Calcium Phosphorus Magnesium Total Bilirubin Ammonia Triglycerides Random Vancomycin 10.3 L Blood Type Antibody Screen Microbiology Microbiology Results: Microbiology 04/03/23 14:57 Gallbladder Gram Stain - Final 04/03/23 14:57 Gallbladder Routine Culture - Preliminary No growth to date. 04/01/23 18:54 Blood - Venous Blood Culture - Preliminary No growth after 48 hours. 04/01/23 18:54 Blood - Venous Blood Culture - Preliminary No growth after 48 hours. 03/29/23 11:45 Sputum - Suctioned Gram Stain - Final 03/29/23 11:45 Sputum - Suctioned Sputum Culture - Final Staphylococcus aureus Escherichia coli 03/25/23 19:18 Blood - Venous Blood Culture - Final No growth after 5 days. 03/25/23 19:18 Blood - Venous Blood Culture - Final No growth after 5 days. 03/22/23 23:25 Blood - Venous Blood Culture - Final No growth after 5 days. 03/22/23 23:25 Blood - Venous Blood Culture - Final No growth after 5 days. Progress Note: A&P Assessment and plan Plan Neurologic: patient has encephalopathy secondary to hepatic disease. Ammonia level was elevated at about 100 as well. Patient is also sedated with propofol. The patient has been receiving lactulose 20 g once daily with a goal of 2 L stool output. Last night was 1.8 L. Patient was evaluated by neurology on 04/04. Recommended an EEG and has been ordered for later today. Will continue to wean propofol and transition to precedex and see how patient tolerates with the vent. Cardiovascular: status post hypoxic cardiac arrest with hypertension however this issue has resolved. The patient has been tachycardic with normal sinus rhythm with rates in the low 100s. The patient has a triple lumen access in the right IJ due to poor peripheral access. Respiratory: patient had an episode of hypoxic cardiac arrest secondary to aspiration with subsequent aspiration pneumonia. The patient is currently intubated and ventilated on AC/VC+ RR set at 24, tV of 350, peep of 5, and FiO2 of 35%. Patient was treated for their aspiration pneumonia and has since then resolved. The patient has had daily unsuccessful weaning trials due to vent dyssynchrony. We will continue wean attempts. Gastrointestinal: patient has an ileus of unknown origin. Patient also has severe liver disease evidenced on CT scan showing hepatic steatosis, hepatomegaly, splenomegaly and portal hypertension. The patient has been given neostigmine three separate times with moderate improvement and adequate motility. G.I. Has rectal tube in place for constant enemas. Ammonia was elevated at 100 on 04/01 but is now at 59 as of 04/03. We have also calculated a MELD score and have determined a 30% 90 day mortality for the patient. Separately the patient was found to have gall bladder sludge and stones on a saravia scan and ultrasound on 04/02. IR was consulted and successfully placed a drain on 04/03. Currently is draining bilious fluid and will continue to monitor patients clinical status i.e. fever and leukocytosis. Has been afebrile for last 12 hours and wbc is still elevated at 15. Renal/Genitourinary: the patient has a resolving renal insufficiency that is non-oliguric. The patient has been followed by nephrology, please see their note for further details and recommendations. As of right now the patient is currently receiving 1 mg of Bumex twice per day for edema and the renal insufficiency. Output at 1.4 ml/kg/hr and is about 2 L in the negative over the past 24 hours. Continue to monitor output closely Hematology: patient currently has an anemia however it is suspected that it is from nutritional deficiencies. Patient is receiving TPN. Please see shipping and receiving operator notes. Patient had a scant amount of blood from rectal tube likely due to trauma from tube. Patient also has bleeding gums during oral care. Current INR of 1.7 up from 1.5 yesterday. Will continue to monitor for bleeding diathesis. Dermatology. Patient has sacral tissue injury. Wound care was consulted and has seen and evaluated the patient. Please see note for details. Infectious disease: patient had aspiration pneumonia which has since been resolved. Fever has resolved and wbc count still elevated at 15. The patient has been on cefepime, vancomycin, and metronidazole for broad-spectrum coverage. Currently the patient does not have any positive cultures in sputum, blood, or urine. A saravia CT scan and ultrasound combined to show cholecystitis. Drain was placed and we are hopeful the infectious s/s will resolve. Antibiotic course will remain for 4 more days for a total of 7 days. Prophylaxis: 40 mg of pantoprazole twice daily for G.I. prophylaxis. DVT prophylaxis with SCD?s. Holding anticoagulation due to anemia and bleeding tendencies. Quality Stroke Does the patient have a stroke diagnosis?: No VTE Prior VTE?: No VTE Risk Level:: Medical - moderate - high VTE Device Contraindication: N/A - Device Ordered VTE Drug Contraindication: Treatment Not Tolerated
--- NOTE | 2023-04-04 10:36 | HO.SKINPHOTO ---
Addendum entered by Lupis Barros RN 04/04/23 18:11: Wound RN at bedside - dressing changed. Chavez removed and [place] cath applied. Minimal output noted at 1730 - Bladder scan completed measuring 350cc - MD notified. No intervention at this time. VO Dr Mackey hold next bumex dose. Original Note: Location: Sacrum Category: Pressure Stage: DTI Length: 7 Width: 5.5 Depth: 0 cm Location: Penis Category: Pressure Stage: Device Related Mucosal Length: 0.5 Width: 0.5 Depth: 0 cm
[2023-04-04] MEDS: Albuterol Sulfate (0.083%) 2.5 MG/3 ML VIAL.NEB INHALE (11:20)
[2023-04-04] MEDS: vancomycin HCL 1,500 MG in 0.9 % Sodium Chloride 500 ML 333.33 MG IV (11:31)
[2023-04-04 11:35] LABS: Glucose, Whole Blood 161 mg/dL (60-115)
[2023-04-04] MEDS: Insulin Lispro 100 UNIT/ML 3 ML VIAL SUBCUT ×2 (11:43→17:18)
--- NOTE | 2023-04-04 11:53 | EEG_ITS ---
This is a 16 channel portable EEG performed in ICU. The patient was on sedation that was stopped for this tracing. Background EEG rhythm was low amplitude fast with no obvious asymmetry or paroxysmal tendency. No sharp waves or spikes were noted. No epileptic discharges were noted. Photic stimulation and hyperventilation were not performed. Cardiac lead did not reveal any significant abnormality. IMPRESSION: This EEG revealed low amplitude tracing, but no evidence of any epileptic discharges. MD OTILIA Fuchs/DUANE / [id number]
--- NOTE | 2023-04-04 12:19 | HO.WOUND ---
Wound Consult: Initial 37yr old male admitted to [facility] [place] on?03/21/23 16:30 - See progress notes and H&P for detailed history. Wound consult placed for wound noted to sacrum - Chart review reveals pt remains critically ill, on 03/22/23 patient suffered cardiac arrest and CPR performed for 6 minutes prior to ROSC. Clinical course has been complicated - see chart review for details clinical course. The wound located at the sacrum pictured below is likely caused in part by Ischemia. Acute Skin Failure can be caused by ischemia secondary to poor perfusion related to cardiac arrest. 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 Acute Skin Failure may occur despite the implementation of proper preventative measures. The scattered areas of irregular shapes and patterns are not typical of those found in pressure injuries alone. Sacrum / Sacrococcygeal area Etiology: Deep Tissue Injury in Evolution with Ischemia component suspected Measurements: 7cm x 5cm x 0.1cm Wound Bed: epidermal layer lifted - dark nonblanchable moist wound bed remains nonblanchable - surrounded by intact dark purple nonblanchable tissue Drainage / Odor: None Edges: ? Irregular Ayleen wound: ? Scattered areas of dark maroon purple intact tissue not consistent with pressure injury No Odor,No Induration, No Fluctuance noted Pain: pt is intubated and sedated Goals of Treatment: ? Off Load Pressure - Triad to act as a barrier to friction and moisture - continue to use all preventative measures in place (Currently in place - KAILA mattress, Off Loading with pillows and wedges - chart review turns and repositions were consistently carried out leading up to first observation of sacral wound and since. Nutrition recommendations in place and following. Urinary and fecal containment devices in place along with disposable dry flow pads in place. Penis Etiology: Device related Mucosal Pressure Injury Measurements: 0.5cm x 0.5cm x 0.1cm Wound Bed: pink moist shallow wound bed Drainage / Odor: dried serosang drainage noted to wound edge Edges: ? attached Ayleen wound: ? Intact No Odor, No Induration, No Fluctuance noted Pain: pt is intubated and sedated Goals of Treatment: ? Off Load Pressure - Triad to act as a barrier to friction and moisture and allow for moist wound healing - when able remove device - if F/C device is needed consider leg securement device to aid in off loading tube from wound bed. Inpatient wound care nurse will continue to follow. Recommendations: 1.Turn and Reposition every 2 hours and as needed for patient comfort continue use of wedges. 2. Off Load all bony prominences with use of pillows, wedges and heel boots - preventative foams when needed. 3. Monitor for incontinence and moisture control - Barrier cream to be used 4. Provide adequate and supplemental nutrition - Nutrition is following and recommendations in place. 5. Continue low air loss mattress and specialty mattress in place. 6. Sacrum - Cleanse with NS or PH balanced wipes, pat dry. Apply Triad layer to wound bed and surrounding tissue. Do not remove all of paste between applications as this may cause further damage to wound bed. Cover with foam dressing to aid in off loading and protection from friction. Change Daily and PRN 7. Penis - Cleanse with NS or PH balanced wipes, pat dry. Apply Triad layer to wound bed and surrounding tissue. Do not remove all of paste between applications as this may cause further damage to wound bed. Apply twice daily.
[2023-04-04] MEDS: propofoL 1,000 MG/100 ML VIAL 6.9 MG IVCONT (14:46)
[2023-04-04] MEDS: dexmedeTOMIDidine HCL/NS 400 MCG/100 ML INFUS..BTL 29.13 MCG IVCONT (14:46)
[2023-04-04 17:39] LABS: Glucose, Whole Blood 154 mg/dL (60-115)
--- NOTE | 2023-04-04 18:13 | PC.NURSE ---
Precedex gtt ordered for EEG. Propofol held 30 mins prior to EEG. SBP throughout day trending 140-150- MD aware. After started Precedex gtt MAP maintaining <65. Precedex gtt on hold per MD along with Propofol gtt. MAP now maintaining >65, synchronous w/ vent.
[2023-04-04] MEDS: Parenteral Nutrition 2,280 ML 95 ML IV (20:55)
[2023-04-04 21:33] LABS: Alanine Aminotransferase 51 U/L (0-40); Albumin Level 3.3 g/dL (3.5-5.0); Alkaline Phosphatase 94 U/L (39-117); Anion Gap 13 (12-20); Aspartate Amino Transferase 127 U/L (5-37); Blood Urea Nitrogen 52 mg/dL (9-16); Calcium 8.7 mg/dL (8.4-10.2); Carbon Dioxide 24 mmol/L (22-29); Chloride 121 mmol/L (96-108); Creatinine Clr Calc Pharmacy 79.9; Estimated Glomerular Filt Rate 47; Glucose Random 129 mg/dL (60-115); Potassium 2.8 mmol/L (3.3-5.1); Sodium 155 mmol/L (135-145); Total Protein 6.7 g/dL (6.5-8.0)
[2023-04-04] MEDS: Potassium Chloride/H20 40 MEQ/100 ML PIGGYBACK 50 MEQ IV (22:30)
[2023-04-04 23:55] LABS: Glucose, Whole Blood 134 mg/dL (60-115)
[2023-04-05] VITALS (31 sets, daily range): BP systolic 144–170; BP diastolic 70–100; PULSE 102–118; RESP 24–41; TEMP 35–38.8; O2SAT 31–100; BMI 34.3
[2023-04-05] MEDS: cefEPime HCl 2 GM in 0.9 % Sodium Chloride 50 ML IV ×3 (00:06→15:58)
[2023-04-05] MEDS: metroNIDAZOLE/NS 500 MG/100 ML PIGGYBACK 100 MG IV ×3 (01:10→17:12)
[2023-04-05] MEDS: Thiamine HCL 200 MG in 0.9 % Sodium Chloride 100 ML IV ×2 (02:39→15:07)
[2023-04-05] MEDS: Dextrose 5 % 1,000 ML 100 ML IVCONT ×3 (03:35→23:16)
[2023-04-05 05:31] LABS: VBG Base Excess -0.5 mmol/L; VBG HCO3 23 mmol/L (22-26); VBG pCO2 35 mmHg; VBG pH 7.43 (7.32-7.43); VBG pO2 63 mmHg
[2023-04-05 05:35] LABS: Venous Blood Gas Refer to POC result
[2023-04-05] MEDS: Pantoprazole Sodium 40 MG/10 ML VIAL IVPUSH ×2 (05:40→15:58)
[2023-04-05 05:50] LABS: Basophils Absolute Auto 0.1 X10*3/uL (0.0-0.2); Basophils Percent Auto 0.8 % (0-2); Eosinophils Absolute Auto 0.6 X10*3/uL (0.0-0.4); Hematocrit 23.8 % (42.0-52.0); Hemoglobin 7.3 g/dl (14.0-18.0); Imm Gran Abs Auto 0.57 X10*3/uL (0.00-0.03); Lymphocytes Absolute Auto 1.8 X10*3/uL (1.2-4.9); Lymphocytes Percent Auto 12.6 % (20-40); MANUAL DIFF FLAG SCAN; Mean Corpuscular HGB Conc 30.7 g/dl (31.0-36.0); Mean Corpuscular Hemoglobin 30.2 pg (27.0-33.0); Mean Corpuscular Volume 98.3 fL (80.0-98.0); Mean Platelet Volume 12.2 fL (9.4-12.4); Monocytes Absolute Auto 1.7 X10*3/uL (0.1-1.2); NRBC Pct Auto 0.3 /100WBC (0.0-0.2); Neutrophils Absolute Auto 9.4 x10*3/uL (2.0-8.3); Neutrophils Percent Auto 66.6 % (45-73); Platelet Count 157 X10*3/uL (160-400); Red Blood Count 2.42 X10*6/uL (4.60-5.80); SCAN SMEAR FLAG 1; White Blood Count 14.1 X10*3/uL (4.8-10.8)
[2023-04-05 06:08] LABS: Anion Gap 13 (12-20); Blood Urea Nitrogen 49 mg/dL (9-16); Calcium 8.7 mg/dL (8.4-10.2); Carbon Dioxide 22 mmol/L (22-29); Chloride 121 mmol/L (96-108); Creatinine Clr Calc Pharmacy 94.8; Estimated Glomerular Filt Rate 58; Glucose Random 133 mg/dL (60-115); Magnesium 2.3 mg/dL (1.6-2.6); Phosphorus 2.5 mg/dL (2.7-4.5); Potassium 3.1 mmol/L (3.3-5.1); Sodium 153 mmol/L (135-145); Triglycerides 242 mg/dL (<150)
[2023-04-05 06:32] LABS: SLIDE REVIEW VERIFIED
[2023-04-05] MEDS: Potassium Chloride/H20 40 MEQ/100 ML PIGGYBACK 50 MEQ IV ×2 (07:09)
[2023-04-05] MEDS: Potassium Phosphate/NS 15 MMOL/250 ML PLAST..BAG 62.5 MMOL IV ×2 (07:09→11:21)
--- NOTE | 2023-04-05 07:28 | PM.CCPN ---
Subjective Subjective Date of Service: 04/05/23 Interval History: no significant overnight events Critical Care Time (minutes): 60 Physical Exam Vital Signs: Vital Signs: Last Vital Signs Temp 101.7 F H 04/05/23 07:00 Pulse 112 H 04/05/23 07:00 Resp 32 H 04/05/23 07:00 BP 167/90 H 04/05/23 07:00 Pulse Ox 95 04/05/23 07:00 O2 Del Method Mechanical Ventil ation 04/05/23 07:00 O2 Flow Rate 50 03/24/23 08:52 FiO2 35 04/05/23 07:20 BMI result Body Mass Index 34.3 Const: Other: not sedated, some appreciable eye flickering; no appreciable purposeful movements General: comfortable and no acute distress HEENT: Head: Yes normal to inspection, Yes normocephalic and Yes atraumatic Eyes: General: appearance normal, both eyes and all related structures Neck: Neck: Yes normal visual inspection, Yes full ROM and Yes supple Chest: Chest palpation & inspection: normal inspection of the chest Resp: Other: no appreciable rhonchi, rales, wheezing Effort & Inspection: normal respiratory effort Cardio: Rate: tachycardic Rhythm: regular rhythm GI: Inspection: Yes normal to inspection, No Abdominal wall edema and No distended Palpation (GI): Soft to palpation, not firm, nontender, no guarding and not rigid : Male General Exam: Yes normal external exam Skin: Other: appreciable sacral wound Neuro: Other: as described above Extrem: Other: 2+ pitting edema to bilateral knees General: Yes normal to inspection and Yes capillary refill normal Psych: Other: unable to assess Objective Data Labs 04/05/23 05:15 04/05/23 05:15 Labs: Laboratory Results - last 24 hr 04/04/23 04/04/23 04/04/23 09:35 11:32 17:12 WBC RBC Hgb Hct MCV MCH MCHC RDW Plt Count MPV Immature Gran % (Auto) Neut % (Auto) Lymph % (Auto) [place] % (Auto) Eos % (Auto) Baso % (Auto) Lymph # (Auto) [place] # (Auto) Eos # (Auto) Baso # (Auto) Abs Immat Gran (auto) Absolute Neuts (auto) Absolute Nucleated RBC Nucleated RBC % (auto) Smear Tech's Comments VBG pH VBG pCO2 VBG pO2 VBG HCO3 VBG O2 Saturation VBG Base Excess Sodium Potassium Chloride Carbon Dioxide Anion Gap BUN Creatinine Estim Creat Clear Calc Estimated GFR POC Glucose 161 H 154 H Random Glucose Calcium Phosphorus Magnesium Total Bilirubin AST ALT Alkaline Phosphatase Total Protein Albumin Triglycerides Random Vancomycin 10.3 L 04/04/23 04/04/23 04/05/23 20:54 23:51 05:15 WBC 14.1 H RBC 2.42 L Hgb 7.3 L Hct 23.8 L MCV 98.3 H MCH 30.2 MCHC 30.7 L RDW 30.0 H Plt Count 157 L MPV 12.2 Immature Gran % (Auto) 4.0 H Neut % (Auto) 66.6 Lymph % (Auto) 12.6 L [place] % (Auto) 12.0 H Eos % (Auto) 4.0 Baso % (Auto) 0.8 Lymph # (Auto) 1.8 [place] # (Auto) 1.7 H Eos # (Auto) 0.6 H Baso # (Auto) 0.1 Abs Immat Gran (auto) 0.57 H Absolute Neuts (auto) 9.4 H Absolute Nucleated RBC 0.040 H Nucleated RBC % (auto) 0.3 H Smear Tech's Comments VERIFIED VBG pH VBG pCO2 VBG pO2 VBG HCO3 VBG O2 Saturation VBG Base Excess Sodium 155 H 153 H Potassium 2.8 L 3.1 L Chloride 121 H 121 H Carbon Dioxide 24 22 Anion Gap 13 13 BUN 52 H 49 H Creatinine 1.65 H 1.38 Estim Creat Clear Calc 79.9 94.8 Estimated GFR 47 58 POC Glucose 134 H Random Glucose 129 H 133 H Calcium 8.7 8.7 Phosphorus 2.5 L Magnesium 2.3 Total Bilirubin 8.0 H AST 127 H ALT 51 H Alkaline Phosphatase 94 Total Protein 6.7 Albumin 3.3 L Triglycerides 242 H Random Vancomycin 04/05/23 05:27 WBC RBC Hgb Hct MCV MCH MCHC RDW Plt Count MPV Immature Gran % (Auto) Neut % (Auto) Lymph % (Auto) [place] % (Auto) Eos % (Auto) Baso % (Auto) Lymph # (Auto) [place] # (Auto) Eos # (Auto) Baso # (Auto) Abs Immat Gran (auto) Absolute Neuts (auto) Absolute Nucleated RBC Nucleated RBC % (auto) Smear Tech's Comments VBG pH 7.43 VBG pCO2 35 VBG pO2 63 VBG HCO3 23 VBG O2 Saturation 87.0 VBG Base Excess -0.5 Sodium Potassium Chloride Carbon Dioxide Anion Gap BUN Creatinine Estim Creat Clear Calc Estimated GFR POC Glucose Random Glucose Calcium Phosphorus Magnesium Total Bilirubin AST ALT Alkaline Phosphatase Total Protein Albumin Triglycerides Random Vancomycin Microbiology Microbiology Results: Microbiology 04/03/23 14:57 Gallbladder Gram Stain - Final 04/03/23 14:57 Gallbladder Routine Culture - Preliminary No growth to date. 04/01/23 18:54 Blood - Venous Blood Culture - Preliminary No growth after 48 hours. 04/01/23 18:54 Blood - Venous Blood Culture - Preliminary No growth after 48 hours. 03/29/23 11:45 Sputum - Suctioned Gram Stain - Final 03/29/23 11:45 Sputum - Suctioned Sputum Culture - Final Staphylococcus aureus Escherichia coli 03/25/23 19:18 Blood - Venous Blood Culture - Final No growth after 5 days. 03/25/23 19:18 Blood - Venous Blood Culture - Final No growth after 5 days. 03/22/23 23:25 Blood - Venous Blood Culture - Final No growth after 5 days. 03/22/23 23:25 Blood - Venous Blood Culture - Final No growth after 5 days. Progress Note: A&P Assessment and plan (1) Cardiopulmonary arrest with successful resuscitation: Status: Acute (2) Alcoholic liver disease: Status: Acute (3) Encephalopathy, hepatic: Status: Acute (4) TILA (acute kidney injury): Status: Acute Plan Patient is a 37 Y M with alcohol misuse c/b cirrhosis, psychiatric comorbidities, admitted 03/21 w/ alcohol intoxication; hospital course c/b ileus, c/b aspiration, c/b hypoxic cardiac arrest, as well as persistent encephalopathy, acute renal insufficiency N: encephalopathy, likely toxic-metabolic, improving; to continue lactulose stool output goal 2 L per day; minimize sedation as tolerated CV: prior hypoxic cardiac arrest, hypotension, resolved; tachycardia, likely d/t intravascular depletion; to tolerate to HR less than 110s-120s R: aspiration pneumonia, c/b hypoxic cardiac arrest; intubated; wean ventilator as tolerated GI: ileus, s/p neostigmine x3, improving; c/f acute cholecystitis, s/p cholecystostomy tube placement w/ interventional radiology 04/03; alcohol misuse c/b cirrhosis : acute renal insufficiency, non-oligouric, improving; appreciate nephrology recommendations; hypernatremia, D5W gtt H: anemia; possible upper GI source; to continue to monitor; to hold DVT prophylaxis ID: aspiration pneumonia; worsening leukocytosis and fever on ceftriaxone; broadened vancomycin, cefepime, and metronidazole; c/f acute cholecystitis, as described above P: no acute issues Quality Stroke Does the patient have a stroke diagnosis?: No VTE Prior VTE?: No VTE Risk Level:: Medical - moderate - high VTE Device Contraindication: N/A - Device Ordered VTE Drug Contraindication: Treatment Not Tolerated
[2023-04-05] MEDS: Chlorhexidine Gluc Oral Rinse 15 ML MOUTHWASH BUCCAL ×3 (08:06→21:43)
[2023-04-05] MEDS: Lactulose 20 GM/30 ML SOLUTION 30 GM PO ×3 (08:07→21:43)
[2023-04-05] MEDS: Lactulose 320 GM/480 ML SOLUTION 200 GM PR ×2 (09:02→14:01)
--- NOTE | 2023-04-05 09:02 | PC.RT ---
Pt transitioned to 6lpm Sanchez with humidification. Levy chaidez, /RN aware.
[2023-04-05 09:17] LABS: Vancomycin Random 10.7 mcg/mL (15-20)
--- NOTE | 2023-04-05 09:25 | HE.PHANOTE ---
re ginny continue current dosing regimen. trough of 10.7 correlates to auc of 543. Rosas
--- NOTE | 2023-04-05 10:10 | MHC.CLN ---
F/U PT REMAINS INTUBATED BUT OFF OF SEDATION. DISCUSSED AT ROUNDS WITH . SKIN WITH DTI TO SACRUM. REVIEWED LABS. DISCUSSED WITH PHARMACY. PPN TO CONTINUE AT 95ML/HR PROVIDES 1163KCALS (14.3 KCALS/KG IBW), 228G DEXTROSE, 97G PROTEIN (1.2 G/KG IBW) NO LIPIDS AT THIS TIME. REPLETE LYTES NEEDED.
[2023-04-05] MEDS: vancomycin HCL 1,500 MG in 0.9 % Sodium Chloride 500 ML 333.33 MG IV (10:23)
--- NOTE | 2023-04-05 10:26 | PC.RT ---
Pt trialed on cpap/psv per MD. Psv started at 20 cmh2o, inc to 25 cmh2o. rr noted 50, inc WOB with retractions and nasal flaring noted. A desaturation was noted. Trial terminated post 3 min. RN aware.
[2023-04-05 11:18] LABS: Glucose, Whole Blood 143 mg/dL (60-115)
[2023-04-05] MEDS: propofoL 1,000 MG/100 ML VIAL 20.7 MG IVCONT ×2 (11:34→21:43)
--- NOTE | 2023-04-05 11:47 | PC.NURSE ---
Sedation off since 04/04 1709 - Assumed care at 0700 from Suzanne RN. Patient continued off sedation - positive cough, absent gag and pain response. Pupils 4mm PERRLA, ? nystagmus. No tracking or following commands, flaccid. Failed PSV trail w/ RT. Patient continued tachypnic 38-41, HR 110's, SBP 150-160, nasal flaring, labored/accessory muscle use. MD notified - Okay to restart Prop gtt per MD - see EMAR. Family at bedside and updated on patients current condition.
--- NOTE | 2023-04-05 12:52 | MHC.RECOVRN ---
T/W and MARGARITA Reyes went to check on pt. status. GF was at the bedside. We offered support and active listening. Resources explained to GF.
--- NOTE | 2023-04-05 13:27 | P.PNNP_ITS ---
Subjective Subjective Date of Service: 04/15/23 Interval history: no significant overnight events Physical Exam 2 Vital Signs: Vital Signs: Last Vital Signs Temp 101.3 F H 04/05/23 12:00 Pulse 112 H 04/05/23 12:00 Resp 30 H 04/05/23 12:00 BP 151/79 H 04/05/23 12:00 Pulse Ox 95 04/05/23 12:00 O2 Del Method Mechanical Ventil ation 04/05/23 12:00 O2 Flow Rate 50 03/24/23 08:52 FiO2 35 04/05/23 12:00 BMI result Body Mass Index 34.3 Const: General: ill appearing Neck: Neck: Yes no meningeal signs and Yes supple Resp: Auscultation: rhonchi Cardio: Jugular venous distension: no JVD Palpation: no palpable S3 H eart sounds: no rubs GI: Palpation (GI): Soft to palpation Auscultation: normal bowel sounds Neuro: General: no meningeal signs Cranial nerves: Yes Nystagmus not present Motor exam (neuro): no asterixis Objective Data Labs 04/15/23 04:41 04/15/23 04:41 Labs: Laboratory Results - last 24 hr 04/04/23 04/04/23 04/04/23 17:12 20:54 23:51 WBC RBC Hgb Hct MCV MCH MCHC RDW Plt Count MPV Immature Gran % (Auto) Neut % (Auto) Lymph % (Auto) [place] % (Auto) Eos % (Auto) Baso % (Auto) Lymph # (Auto) [place] # (Auto) Eos # (Auto) Baso # (Auto) Abs Immat Gran (auto) Absolute Neuts (auto) Absolute Nucleated RBC Nucleated RBC % (auto) Smear Tech's Comments VBG pH VBG pCO2 VBG pO2 VBG HCO3 VBG O2 Saturation VBG Base Excess Sodium 155 H Potassium 2.8 L Chloride 121 H Carbon Dioxide 24 Anion Gap 13 BUN 52 H Creatinine 1.65 H Estim Creat Clear Calc 79.9 Estimated GFR 47 POC Glucose 154 H 134 H Random Glucose 129 H Calcium 8.7 Phosphorus Magnesium Total Bilirubin 8.0 H AST 127 H ALT 51 H Alkaline Phosphatase 94 Total Protein 6.7 Albumin 3.3 L Triglycerides Random Vancomycin 04/05/23 04/05/23 04/05/23 05:15 05:27 08:46 WBC 14.1 H RBC 2.42 L Hgb 7.3 L Hct 23.8 L MCV 98.3 H MCH 30.2 MCHC 30.7 L RDW 30.0 H Plt Count 157 L MPV 12.2 Immature Gran % (Auto) 4.0 H Neut % (Auto) 66.6 Lymph % (Auto) 12.6 L [place] % (Auto) 12.0 H Eos % (Auto) 4.0 Baso % (Auto) 0.8 Lymph # (Auto) 1.8 [place] # (Auto) 1.7 H Eos # (Auto) 0.6 H Baso # (Auto) 0.1 Abs Immat Gran (auto) 0.57 H Absolute Neuts (auto) 9.4 H Absolute Nucleated RBC 0.040 H Nucleated RBC % (auto) 0.3 H Smear Tech's Comments VERIFIED VBG pH 7.43 VBG pCO2 35 VBG pO2 63 VBG HCO3 23 VBG O2 Saturation 87.0 VBG Base Excess -0.5 Sodium 153 H Potassium 3.1 L Chloride 121 H Carbon Dioxide 22 Anion Gap 13 BUN 49 H Creatinine 1.38 Estim Creat Clear Calc 94.8 Estimated GFR 58 POC Glucose Random Glucose 133 H Calcium 8.7 Phosphorus 2.5 L Magnesium 2.3 Total Bilirubin AST ALT Alkaline Phosphatase Total Protein Albumin Triglycerides 242 H Random Vancomycin 10.7 L 04/05/23 11:12 WBC RBC Hgb Hct MCV MCH MCHC RDW Plt Count MPV Immature Gran % (Auto) Neut % (Auto) Lymph % (Auto) [place] % (Auto) Eos % (Auto) Baso % (Auto) Lymph # (Auto) [place] # (Auto) Eos # (Auto) Baso # (Auto) Abs Immat Gran (auto) Absolute Neuts (auto) Absolute Nucleated RBC Nucleated RBC % (auto) Smear Tech's Comments VBG pH VBG pCO2 VBG pO2 VBG HCO3 VBG O2 Saturation VBG Base Excess Sodium Potassium Chloride Carbon Dioxide Anion Gap BUN Creatinine Estim Creat Clear Calc Estimated GFR POC Glucose 143 H Random Glucose Calcium Phosphorus Magnesium Total Bilirubin AST ALT Alkaline Phosphatase Total Protein Albumin Triglycerides Random Vancomycin Microbiology Microbiology Results: Microbiology 04/03/23 14:57 Gallbladder Gram Stain - Final 04/03/23 14:57 Gallbladder Routine Culture - Preliminary No growth to date. 04/01/23 18:54 Blood - Venous Blood Culture - Preliminary No growth after 48 hours. 04/01/23 18:54 Blood - Venous Blood Culture - Preliminary No growth after 48 hours. 03/29/23 11:45 Sputum - Suctioned Gram Stain - Final 03/29/23 11:45 Sputum - Suctioned Sputum Culture - Final Staphylococcus aureus Escherichia coli 03/25/23 19:18 Blood - Venous Blood Culture - Final No growth after 5 days. 03/25/23 19:18 Blood - Venous Blood Culture - Final No growth after 5 days. 03/22/23 23:25 Blood - Venous Blood Culture - Final No growth after 5 days. 03/22/23 23:25 Blood - Venous Blood Culture - Final No growth after 5 days. Procedures Date of Service Date of Service: 04/15/23 Assessment & Plan Assessment and plan (1) TILA (acute kidney injury): Status: Acute (2) Metabolic acidosis: Status: Acute (3) Anemia: Status: Acute Plan 37-year-old man with a history of cardiac arrest currently his acute kidney injury most likely due to ischemic ATN. No evidence of obstruction. active glomerulonephritis or interstitial disease. -unlikely He is critically ill and intubated. Mild hypernatremia due to free water deficit secondary to loop diuretics. Next item hypokalemia due to diuretic induced potassium loss. Recommendation Agree with diuresis Can change loop diuretic to thiazide which should correct hypernatremia by decreasing free water clearance Watch urine output closely. Continue to Avoid hypotension and nephrotoxins. At present is no absolute indication for dialysis. Concur with current medical management and will follow along with the team. Time Spent With Patient Time: Total time managing care of this patient today ____ minutes. Progress Note: Quality Stroke Does the patient have a stroke diagnosis?: No
[2023-04-05] MEDS: Chlorothiazide Sodium 500 MG VIAL IVPUSH (13:58)
[2023-04-05] MEDS: Albuterol Sulfate (0.083%) 2.5 MG/3 ML VIAL.NEB INHALE ×2 (15:29→19:57)
[2023-04-05] MEDS: propofoL 1,000 MG/100 ML VIAL 13.8 MG IVCONT (15:58)
--- NOTE | 2023-04-05 16:14 | MHC.CM.PN ---
EMR REVIEWED, PT REINTUBATED, REMAINS FEBRILE, ON NPO W/TPN, NO PLAN FOR DC AT THIS TIME, CM WILL CONT TO FOLLOW DC NEEDS.
[2023-04-05 17:19] LABS: Glucose, Whole Blood 144 mg/dL (60-115)
[2023-04-05] MEDS: Parenteral Nutrition 2,280 ML 95 ML IV (21:43)
[2023-04-05] MEDS: Lactulose 20 GM/30 ML SOLUTION 40 GM PO (23:38)
[2023-04-05] MEDS: Acetaminophen 1,000 MG/100 ML PIGGYBACK 400 MG IV (23:55)
[2023-04-05 23:56] LABS: Glucose, Whole Blood 147 mg/dL (60-115)
[2023-04-06] VITALS (29 sets, daily range): BP systolic 99–153; BP diastolic 46–90; PULSE 105–123; RESP 27–47; TEMP 34.5–39.6; O2SAT 91–98; BMI 33.9
[2023-04-06] MEDS: cefEPime HCl 2 GM in 0.9 % Sodium Chloride 50 ML IV ×3 (01:27→16:56)
[2023-04-06] MEDS: metroNIDAZOLE/NS 500 MG/100 ML PIGGYBACK 100 MG IV ×3 (01:27→18:07)
[2023-04-06] MEDS: propofoL 1,000 MG/100 ML VIAL 20.7 MG IVCONT ×2 (02:38→11:08)
[2023-04-06] MEDS: Thiamine HCL 200 MG in 0.9 % Sodium Chloride 100 ML IV ×2 (03:02→16:44)
[2023-04-06] MEDS: Albuterol Sulfate (0.083%) 2.5 MG/3 ML VIAL.NEB INHALE (04:28)
[2023-04-06 05:26] LABS: VBG Base Excess -1.8 mmol/L; VBG HCO3 21 mmol/L (22-26); VBG pCO2 28 mmHg; VBG pH 7.47 (7.32-7.43); VBG pO2 73 mmHg
[2023-04-06] MEDS: Pantoprazole Sodium 40 MG/10 ML VIAL IVPUSH ×2 (05:29→16:45)
[2023-04-06 05:35] LABS: Venous Blood Gas Refer to POC result
[2023-04-06 06:10] LABS: MANUAL DIFF FLAG NO
[2023-04-06 06:35] LABS: Anion Gap 13 (12-20); Blood Urea Nitrogen 41 mg/dL (9-16); Calcium 8.9 mg/dL (8.4-10.2); Carbon Dioxide 21 mmol/L (22-29); Chloride 121 mmol/L (96-108); Creatinine Clr Calc Pharmacy 84.5; Estimated Glomerular Filt Rate 51; Glucose Random 133 mg/dL (60-115); Magnesium 2.6 mg/dL (1.6-2.6); Phosphorus 3.2 mg/dL (2.7-4.5); Potassium 3.6 mmol/L (3.3-5.1); Sodium 151 mmol/L (135-145); Triglycerides 267 mg/dL (<150)
[2023-04-06 06:37] LABS: Ammonia 43 umol/L (13-55)
[2023-04-06 06:46] LABS: Basophils Absolute Auto 0.1 X10*3/uL (0.0-0.2); Basophils Percent Auto 0.9 % (0-2); Eosinophils Absolute Auto 0.5 X10*3/uL (0.0-0.4); Eosinophils Percent Auto 4.4 % (0-4); Hematocrit 24.8 % (42.0-52.0); Hemoglobin 7.3 g/dl (14.0-18.0); Imm Gran Abs Auto 0.31 X10*3/uL (0.00-0.03); Imm Gran Pct Auto 2.6 % (0.0-0.4); Lymphocytes Absolute Auto 1.5 X10*3/uL (1.2-4.9); Lymphocytes Percent Auto 12.6 % (20-40); Mean Corpuscular HGB Conc 29.4 g/dl (31.0-36.0); Mean Corpuscular Hemoglobin 29.6 pg (27.0-33.0); Mean Corpuscular Volume 100.4 fL (80.0-98.0); Monocytes Absolute Auto 1.3 X10*3/uL (0.1-1.2); NRBC Pct Auto 0.2 /100WBC (0.0-0.2); Neutrophils Absolute Auto 8.3 x10*3/uL (2.0-8.3); Neutrophils Percent Auto 68.5 % (45-73); Platelet Count 153 X10*3/uL (160-400); Red Blood Count 2.47 X10*6/uL (4.60-5.80); Red Cell Distribution Width 29.5 % (11.0-16.0); White Blood Count 12.1 X10*3/uL (4.8-10.8)
[2023-04-06] MEDS: propofoL 1,000 MG/100 ML VIAL 27.6 MG IVCONT ×2 (07:29→17:42)
--- NOTE | 2023-04-06 07:34 | PM.CCPN ---
Subjective Subjective Date of Service: 04/06/23 Interval History: no significant overnight events Critical Care Time (minutes): 60 Physical Exam Vital Signs: Vital Signs: Last Vital Signs Temp 102.2 F H 04/06/23 07:00 Pulse 112 H 04/06/23 07:00 Resp 30 H 04/06/23 07:00 BP 146/72 H 04/06/23 07:00 Pulse Ox 94 04/06/23 07:00 O2 Del Method Mechanical Ventil ation 04/06/23 07:00 O2 Flow Rate 35 04/05/23 20:00 FiO2 30 04/06/23 07:00 BMI result Body Mass Index 33.9 Const: Other: intubated, sedated; no acute distress HEENT: Head: Yes normal to inspection, Yes normocephalic and Yes atraumatic Eyes: Other: slceral icterus General: appearance normal, both eyes and all related structures Neck: Neck: Yes normal visual inspection, Yes full ROM and Yes supple Chest: Chest palpation & inspection: normal inspection of the chest Resp: Other: no appreciable rales, rhonchi, wheezing Cardio: Rate: tachycardic Rhythm: regular rhythm GI: Other: appreciable hypoactive bowel sounds; RUQ CECILLE drain clean, dry, intact Inspection: Yes normal to inspection, No Abdominal wall edema and Yes distended Palpation (GI): Soft to palpation, not firm, nontender, no guarding and not rigid Skin: Other: grossly jaundiced General skin exam: no rashes or lesions noted Neuro: Other: no appreciable purposeful movements General: tone normal Extrem: Other: 1+ pitting edema bilateral forearms General: Yes normal to inspection and Yes capillary refill normal Psych: Other: unable to assess Objective Data Labs 04/06/23 05:15 04/06/23 05:15 Labs: Laboratory Results - last 24 hr 04/05/23 04/05/23 04/05/23 08:46 11:12 17:15 WBC RBC Hgb Hct MCV MCH MCHC RDW Plt Count MPV Immature Gran % (Auto) Neut % (Auto) Lymph % (Auto) [place] % (Auto) Eos % (Auto) Baso % (Auto) Lymph # (Auto) [place] # (Auto) Eos # (Auto) Baso # (Auto) Abs Immat Gran (auto) Absolute Neuts (auto) Absolute Nucleated RBC Nucleated RBC % (auto) VBG pH VBG pCO2 VBG pO2 VBG HCO3 VBG O2 Saturation VBG Base Excess Sodium Potassium Chloride Carbon Dioxide Anion Gap BUN Creatinine Estim Creat Clear Calc Estimated GFR POC Glucose 143 H 144 H Random Glucose Calcium Phosphorus Magnesium Ammonia Triglycerides Random Vancomycin 10.7 L 04/05/23 04/06/23 04/06/23 23:50 05:15 05:21 WBC 12.1 H RBC 2.47 L Hgb 7.3 L Hct 24.8 L MCV 100.4 H MCH 29.6 MCHC 29.4 L RDW 29.5 H Plt Count 153 L MPV Not Reportable Immature Gran % (Auto) 2.6 H Neut % (Auto) 68.5 Lymph % (Auto) 12.6 L [place] % (Auto) 11.0 Eos % (Auto) 4.4 H Baso % (Auto) 0.9 Lymph # (Auto) 1.5 [place] # (Auto) 1.3 H Eos # (Auto) 0.5 H Baso # (Auto) 0.1 Abs Immat Gran (auto) 0.31 H Absolute Neuts (auto) 8.3 Absolute Nucleated RBC 0.020 H Nucleated RBC % (auto) 0.2 VBG pH 7.47 H VBG pCO2 28 VBG pO2 73 VBG HCO3 21 L VBG O2 Saturation 96.0 VBG Base Excess -1.8 Sodium 151 H Potassium 3.6 Chloride 121 H Carbon Dioxide 21 L Anion Gap 13 BUN 41 H Creatinine 1.54 H Estim Creat Clear Calc 84.5 Estimated GFR 51 POC Glucose 147 H Random Glucose 133 H Calcium 8.9 Phosphorus 3.2 Magnesium 2.6 Ammonia 43 Triglycerides 267 H Random Vancomycin Microbiology Microbiology Results: Microbiology 04/03/23 14:57 Gallbladder Gram Stain - Final 04/03/23 14:57 Gallbladder Routine Culture - Preliminary No growth to date. 04/01/23 18:54 Blood - Venous Blood Culture - Preliminary No growth after 48 hours. 04/01/23 18:54 Blood - Venous Blood Culture - Preliminary No growth after 48 hours. 03/29/23 11:45 Sputum - Suctioned Gram Stain - Final 03/29/23 11:45 Sputum - Suctioned Sputum Culture - Final Staphylococcus aureus Escherichia coli 03/25/23 19:18 Blood - Venous Blood Culture - Final No growth after 5 days. 03/25/23 19:18 Blood - Venous Blood Culture - Final No growth after 5 days. 03/22/23 23:25 Blood - Venous Blood Culture - Final No growth after 5 days. 03/22/23 23:25 Blood - Venous Blood Culture - Final No growth after 5 days. Progress Note: A&P Assessment and plan (1) TILA (acute kidney injury): Status: Acute (2) Ileus: Status: Acute (3) Cardiopulmonary arrest with successful resuscitation: Status: Acute (4) Alcoholic liver disease: Status: Acute (5) Encephalopathy, hepatic: Status: Acute Plan Patient is a 37 Y M with alcohol misuse c/b cirrhosis, psychiatric comorbidities, admitted 03/21 w/ alcohol intoxication; hospital course c/b ileus, c/b aspiration, c/b hypoxic cardiac arrest, as well as persistent encephalopathy, acute renal insufficiency N: encephalopathy, likely toxic-metabolic, improving; to continue lactulose stool output goal 2 L per day; minimize sedation as tolerated CV: prior hypoxic cardiac arrest, hypotension, resolved; tachycardia, likely d/t intravascular depletion, fever; to tolerate to HR less than 110s-120s R: aspiration pneumonia, c/b hypoxic cardiac arrest; intubated; wean ventilator as tolerated GI: ileus, s/p neostigmine x3, improving; c/f acute cholecystitis, s/p cholecystostomy tube placement w/ interventional radiology 04/03; alcohol misuse c/b cirrhosis : acute renal insufficiency, non-oligouric, stable; appreciate nephrology recommendations; hypernatremia, D5W gtt H: anemia; possible upper GI source; to continue to monitor; to hold chemical DVT prophylaxis ID: aspiration pneumonia; worsening leukocytosis and persistent fever on ceftriaxone; broadened vancomycin, cefepime, and metronidazole; c/f acute cholecystitis, as described above P: no acute issues Quality Stroke Does the patient have a stroke diagnosis?: No VTE Prior VTE?: No VTE Risk Level:: Medical - moderate - high VTE Device Contraindication: N/A - Device Ordered VTE Drug Contraindication: Treatment Not Tolerated
[2023-04-06] MEDS: Potassium Chloride Packet 20 MEQ PACKET 40 MEQ PO (08:53)
[2023-04-06] MEDS: Lactulose 20 GM/30 ML SOLUTION 30 GM PO ×3 (08:53→21:09)
[2023-04-06] MEDS: Chlorhexidine Gluc Oral Rinse 15 ML MOUTHWASH BUCCAL ×3 (08:53→21:06)
[2023-04-06] MEDS: Chlorothiazide Sodium 500 MG VIAL IVPUSH (08:53)
[2023-04-06] MEDS: Furosemide 40 MG/4 ML VIAL IVPUSH (08:56)
[2023-04-06] MEDS: Lactulose 320 GM/480 ML SOLUTION 200 GM PR ×2 (09:11→16:48)
[2023-04-06 09:37] LABS: Vancomycin Random 10.4 mcg/mL (15-20)
[2023-04-06] MEDS: Acetaminophen 1,000 MG/100 ML PIGGYBACK 400 MG IV (10:42)
[2023-04-06] MEDS: vancomycin HCL 1,000 MG in 0.9 % Sodium Chloride 250 ML 270 MG IV ×2 (10:44→23:26)
[2023-04-06 11:39] LABS: Glucose, Whole Blood 129 mg/dL (60-115)
--- NOTE | 2023-04-06 12:57 | P.CDIM_ITS ---
PROVIDER RESPONSE TEXT: To clarify, the appropriate diagnosis supported by the clinical indicators: Hypokalemia QUERY TEXT: PHYSICIAN'S DOCUMENTATION REQUEST Date of Query: 04/02/2023 09:08 AM EST Patient Name: Nelson López Admit Date: 03/21/2023 Dear Ileana Mackey, A review of the medical record indicates additional documentation may be needed. Please review below and update the documentation accordingly. Clinical Indicators: On 04/02/23, potassium 2.8 Potassium Chloride 10 meq in 100 mls @ 100 mls/hr IV Q1H, 4 bags ordered on 04/02/23 Based on the above, could you clarify the appropriate diagnosis, if significant, that supports the ab ove abnormalities and additional evaluation, monitoring, and/or treatment rendered: Hypokalemia Labs indicate a diagnosis of (please specify) Other (explain) Clinically unable to determine (explain) Thank you, Lurdes Graf RN Use of terms such as suspected, likely, concern for, or probable (associated with a specific diagnosi s that is being evaluated, monitored, or treated as if it exists) are acceptable and can be coded in the inpatient se tting, when documented at the time of discharge. Please use your independent medical judgment in providing your response. THIS QUERY IS PART OF THE PERMANENT MEDICAL RECORD
--- NOTE | 2023-04-06 13:00 | P.CDIM_ITS ---
PROVIDER RESPONSE TEXT: To clarify, the appropriate diagnosis supported by the clinical indicators: Other (explain): wound in part due to ischemia and critical illness, as outlined by wound team QUERY TEXT: PHYSICIAN'S DOCUMENTATION REQUEST Date of Query: 04/04/2023 12:35 PM EST Patient Name: Nelson López Admit Date: 03/21/2023 Dear Ileana Mackey, A review of the medical record indicates additional documentation may be needed. Please review below and update the documentation accordingly. Clinical Indicators: Per Nursing Pressure Injury Assessment 04/04/23: Sacrum deep tissue injury, triad and foam dressing Based on the above, could you please provide further information regarding the ulcer/wound: Pressure (decubitus) ulcer Please include the stage of the ulcer and specify the location and laterality of the ulcer/wound Traumatic wound Please specify the location and laterality of the ulcer/wound Other (explain) Clinically unable to determine (explain) Thank you, Lurdes Graf RN Use of terms such as suspected, likely, concern for, or probable (associated with a specific diagnosi s that is being evaluated, monitored, or treated as if it exists) are acceptable and can be coded in the inpatient se tting, when documented at the time of discharge. Please use your independent medical judgment in providing your response. THIS QUERY IS PART OF THE PERMANENT MEDICAL RECORD
[2023-04-06] MEDS: HYDROmorphone HCl 1 MG/ML SYRINGE IVPUSH (17:59)
[2023-04-06 18:15] LABS: Glucose, Whole Blood 139 mg/dL (60-115)
[2023-04-06] MEDS: propofoL 1,000 MG/100 ML VIAL 13.8 MG IVCONT (21:10)
[2023-04-06] MEDS: Parenteral Nutrition 2,280 ML 95 ML IV (21:10)
[2023-04-06 23:56] LABS: Glucose, Whole Blood 110 mg/dL (60-115)
[2023-04-07] VITALS (34 sets, daily range): BP systolic 129–172; BP diastolic 68–105; PULSE 101–118; RESP 17–51; TEMP 34.8–39.3; O2SAT 93–100; BMI 33.9
[2023-04-07] MEDS: cefEPime HCl 2 GM in 0.9 % Sodium Chloride 50 ML IV ×3 (01:41→17:12)
[2023-04-07] MEDS: metroNIDAZOLE/NS 500 MG/100 ML PIGGYBACK 100 MG IV ×3 (01:41→17:59)
[2023-04-07] MEDS: Thiamine HCL 200 MG in 0.9 % Sodium Chloride 100 ML IV ×2 (02:44→15:16)
[2023-04-07] MEDS: propofoL 1,000 MG/100 ML VIAL 13.8 MG IVCONT (02:44)
[2023-04-07 05:29] LABS: VBG Base Excess -2.1 mmol/L; VBG HCO3 21 mmol/L (22-26); VBG pCO2 30 mmHg; VBG pH 7.44 (7.32-7.43); VBG pO2 58 mmHg
[2023-04-07 05:31] LABS: Venous Blood Gas Refer to POC result
[2023-04-07] MEDS: Pantoprazole Sodium 40 MG/10 ML VIAL IVPUSH ×2 (05:39→15:15)
[2023-04-07 06:06] LABS: MANUAL DIFF FLAG NO
[2023-04-07 06:10] LABS: Basophils Absolute Auto 0.2 X10*3/uL (0.0-0.2); Basophils Percent Auto 1.2 % (0-2); Eosinophils Absolute Auto 0.6 X10*3/uL (0.0-0.4); Eosinophils Percent Auto 4.4 % (0-4); Hematocrit 27.3 % (42.0-52.0); Imm Gran Abs Auto 0.27 X10*3/uL (0.00-0.03); Imm Gran Pct Auto 2.1 % (0.0-0.4); Lymphocytes Absolute Auto 1.3 X10*3/uL (1.2-4.9); Lymphocytes Percent Auto 10.3 % (20-40); Mean Corpuscular HGB Conc 29.3 g/dl (31.0-36.0); Mean Corpuscular Hemoglobin 29.3 pg (27.0-33.0); Monocytes Absolute Auto 1.2 X10*3/uL (0.1-1.2); Monocytes Percent Auto 9.5 % (2-11); Neutrophils Absolute Auto 9.1 x10*3/uL (2.0-8.3); Neutrophils Percent Auto 72.5 % (45-73); Platelet Count 168 X10*3/uL (160-400); Red Blood Count 2.73 X10*6/uL (4.60-5.80); Red Cell Distribution Width 29.2 % (11.0-16.0); White Blood Count 12.6 X10*3/uL (4.8-10.8)
[2023-04-07 06:25] LABS: Anion Gap 15 (12-20); Bilirubin Total 7.9 mg/dL (0.0-1.0); Blood Urea Nitrogen 45 mg/dL (9-16); Calcium 9.5 mg/dL (8.4-10.2); Carbon Dioxide 20 mmol/L (22-29); Chloride 122 mmol/L (96-108); Creatinine Clr Calc Pharmacy 75.7; Estimated Glomerular Filt Rate 45; Glucose Random 128 mg/dL (60-115); Magnesium 2.6 mg/dL (1.6-2.6); Phosphorus 3.3 mg/dL (2.7-4.5); Potassium 4.1 mmol/L (3.3-5.1); Sodium 153 mmol/L (135-145); Triglycerides 275 mg/dL (<150)
[2023-04-07 07:06] LABS: INTERNATIONAL NORM RATIO 1.5 (0.9-1.1); Prothrombin Time 17.9 SEC (11.1-13.3)
--- NOTE | 2023-04-07 08:03 | PM.CCPN ---
Subjective Subjective Date of Service: 04/07/23 Interval History: no signifcant overnight events Critical Care Time (minutes): 60 Physical Exam Vital Signs: Vital Signs: Last Vital Signs Temp 99.4 F 04/07/23 07:51 Pulse 111 H 04/07/23 07:51 Resp 31 H 04/07/23 07:51 BP 171/104 H 04/07/23 07:51 Pulse Ox 100 04/07/23 07:51 O2 Del Method Mechanical Ventil ation 04/07/23 07:51 O2 Flow Rate 35 04/05/23 20:00 FiO2 30 04/07/23 07:51 BMI result Body Mass Index 33.9 Const: General: cooperative, comfortable and no acute distress HEENT: Head: Yes normal to inspection, Yes normocephalic and Yes atraumatic Eyes: General: appearance normal, both eyes and all related structures Neck: Neck: Yes normal visual inspection and Yes supple Chest: Chest palpation & inspection: normal inspection of the chest Resp: Other: no appreciable rales, rhonchi, wheezing Cardio: Rate: tachycardic Rhythm: regular rhythm GI: Other: distended, though soft Inspection: Yes normal to inspection and No Abdominal wall edema Palpation (GI): not firm, nontender, no guarding and not rigid Skin: General skin exam: no rashes or lesions noted Neuro: Other: intubated, minimally sedated; flickers eyes; no appreciable purposeful movements General: tone normal and no focal motor deficits Extrem: Other: 2+ pitting edema to bilateral mid shins General: Yes normal to inspection and Yes capillary refill normal Psych: Other: unable to assess Objective Data Labs 04/07/23 05:17 04/07/23 05:17 Labs: Laboratory Results - last 24 hr 04/06/23 04/06/23 04/06/23 09:09 11:27 18:06 WBC RBC Hgb Hct MCV MCH MCHC RDW Plt Count MPV Immature Gran % (Auto) Neut % (Auto) Lymph % (Auto) [place] % (Auto) Eos % (Auto) Baso % (Auto) Lymph # (Auto) [place] # (Auto) Eos # (Auto) Baso # (Auto) Abs Immat Gran (auto) Absolute Neuts (auto) Absolute Nucleated RBC Nucleated RBC % (auto) PT INR VBG pH VBG pCO2 VBG pO2 VBG HCO3 VBG O2 Saturation VBG Base Excess Sodium Potassium Chloride Carbon Dioxide Anion Gap BUN Creatinine Estim Creat Clear Calc Estimated GFR POC Glucose 129 H 139 H Random Glucose Calcium Phosphorus Magnesium Total Bilirubin Triglycerides Random Vancomycin 10.4 L Blood Type Antibody Screen 04/06/23 04/07/23 04/07/23 23:50 05:17 05:23 WBC 12.6 H RBC 2.73 L Hgb 8.0 L Hct 27.3 L MCV 100.0 H MCH 29.3 MCHC 29.3 L RDW 29.2 H Plt Count 168 MPV Not Reportable Immature Gran % (Auto) 2.1 H Neut % (Auto) 72.5 Lymph % (Auto) 10.3 L [place] % (Auto) 9.5 Eos % (Auto) 4.4 H Baso % (Auto) 1.2 Lymph # (Auto) 1.3 [place] # (Auto) 1.2 Eos # (Auto) 0.6 H Baso # (Auto) 0.2 Abs Immat Gran (auto) 0.27 H Absolute Neuts (auto) 9.1 H Absolute Nucleated RBC 0.000 Nucleated RBC % (auto) 0.0 PT 17.9 H INR 1.5 H VBG pH 7.44 H VBG pCO2 30 VBG pO2 58 VBG HCO3 21 L VBG O2 Saturation 84.0 VBG Base Excess -2.1 Sodium 153 H Potassium 4.1 Chloride 122 H Carbon Dioxide 20 L Anion Gap 15 BUN 45 H Creatinine 1.72 H Estim Creat Clear Calc 75.7 Estimated GFR 45 POC Glucose 110 Random Glucose 128 H Calcium 9.5 D Phosphorus 3.3 Magnesium 2.6 Total Bilirubin 7.9 H Triglycerides 275 H Random Vancomycin Blood Type O Positive Antibody Screen NEGATIVE Microbiology Microbiology Results: Microbiology 04/01/23 18:54 Blood - Venous Blood Culture - Final No growth after 5 days. 04/01/23 18:54 Blood - Venous Blood Culture - Final No growth after 5 days. 04/03/23 14:57 Gallbladder Gram Stain - Final 04/03/23 14:57 Gallbladder Routine Culture - Final No growth after 2 days 03/29/23 11:45 Sputum - Suctioned Gram Stain - Final 03/29/23 11:45 Sputum - Suctioned Sputum Culture - Final Staphylococcus aureus Escherichia coli 03/25/23 19:18 Blood - Venous Blood Culture - Final No growth after 5 days. 03/25/23 19:18 Blood - Venous Blood Culture - Final No growth after 5 days. 03/22/23 23:25 Blood - Venous Blood Culture - Final No growth after 5 days. 03/22/23 23:25 Blood - Venous Blood Culture - Final No growth after 5 days. Progress Note: A&P Assessment and plan (1) TILA (acute kidney injury): Status: Acute (2) Ileus: Status: Acute (3) Cardiopulmonary arrest with successful resuscitation: Status: Acute (4) Alcoholic liver disease: Status: Acute (5) Encephalopathy, hepatic: Status: Acute Plan Patient is a 37 Y M with alcohol misuse c/b cirrhosis, psychiatric comorbidities, admitted 03/21 w/ alcohol intoxication; hospital course c/b ileus, c/b aspiration, c/b hypoxic cardiac arrest, as well as persistent encephalopathy, acute renal insufficiency N: encephalopathy, likely toxic-metabolic, improving; to continue lactulose stool output goal 2 L per day; minimize sedation as tolerated CV: prior hypoxic cardiac arrest, hypotension, resolved; tachycardia, likely d/t intravascular depletion, fever; to tolerate to HR less than 110s-120s R: aspiration pneumonia, c/b hypoxic cardiac arrest; intubated; wean ventilator as tolerated GI: ileus, s/p neostigmine x3, improving; c/f acute cholecystitis, s/p cholecystostomy tube placement w/ interventional radiology 04/03; alcohol misuse c/b cirrhosis : acute renal insufficiency, non-oligouric, stable; appreciate nephrology recommendations; hypernatremia, D5W gtt H: anemia; possible upper GI source; to continue to monitor; to hold chemical DVT prophylaxis ID: aspiration pneumonia; worsening leukocytosis and persistent fever on ceftriaxone; broadened vancomycin, cefepime, and metronidazole; c/f acute cholecystitis, as described above P: no acute issues Quality Stroke Does the patient have a stroke diagnosis?: No VTE Prior VTE?: No VTE Risk Level:: Medical - moderate - high VTE Device Contraindication: N/A - Device Ordered VTE Drug Contraindication: Treatment Not Tolerated
[2023-04-07] MEDS: Lactulose 20 GM/30 ML SOLUTION 30 GM PO ×4 (08:40→21:10)
[2023-04-07] MEDS: Chlorothiazide Sodium 500 MG VIAL IVPUSH (08:42)
[2023-04-07] MEDS: Furosemide 40 MG/4 ML VIAL IVPUSH (08:42)
[2023-04-07] MEDS: Chlorhexidine Gluc Oral Rinse 15 ML MOUTHWASH BUCCAL ×3 (08:43→21:10)
[2023-04-07] MEDS: Lactulose 320 GM/480 ML SOLUTION 200 GM PR ×3 (08:43→22:16)
[2023-04-07] MEDS: vancomycin HCL 1,000 MG in 0.9 % Sodium Chloride 250 ML 270 MG IV (10:57)
[2023-04-07 11:48] LABS: Albumin Level 3.4 g/dL (3.5-5.0)
[2023-04-07] MEDS: HYDROmorphone HCl 0.5 MG/0.5 ML SYRINGE IVPUSH ×3 (12:00→19:04)
[2023-04-07 12:07] LABS: Glucose, Whole Blood 132 mg/dL (60-115)
[2023-04-07] MEDS: propofoL 1,000 MG/100 ML VIAL 20.7 MG IVCONT ×3 (15:17→23:27)
[2023-04-07 18:12] LABS: Glucose, Whole Blood 137 mg/dL (60-115)
[2023-04-07] MEDS: Parenteral Nutrition 2,280 ML 95 ML IV (21:10)
[2023-04-07 21:47] LABS: Alanine Aminotransferase 49 U/L (0-40); Albumin Level 3.2 g/dL (3.5-5.0); Alkaline Phosphatase 90 U/L (39-117); Anion Gap 16 (12-20); Aspartate Amino Transferase 121 U/L (5-37); Bilirubin Total 7.7 mg/dL (0.0-1.0); Blood Urea Nitrogen 52 mg/dL (9-16); Calcium 9.7 mg/dL (8.4-10.2); Carbon Dioxide 20 mmol/L (22-29); Chloride 123 mmol/L (96-108); Creatinine Clr Calc Pharmacy 70.8; Estimated Glomerular Filt Rate 41; Glucose Random 135 mg/dL (60-115); Magnesium 2.6 mg/dL (1.6-2.6); Phosphorus 2.8 mg/dL (2.7-4.5); Potassium 4.1 mmol/L (3.3-5.1); Sodium 155 mmol/L (135-145); Total Protein 6.8 g/dL (6.5-8.0); Triglycerides 288 mg/dL (<150)
[2023-04-07] MEDS: Dextrose 5 % and Lactated Ring 1,000 ML 125 ML IVCONT (21:56)
[2023-04-07] MEDS: Dextrose 5 % 1,000 ML 150 ML IVCONT (22:09)
[2023-04-07 23:35] LABS: Glucose, Whole Blood 156 mg/dL (60-115)
[2023-04-07] MEDS: vancomycin HCL 750 MG in 0.9 % Sodium Chloride 250 ML 265 MG IV (23:40)
[2023-04-07] MEDS: Insulin Lispro 100 UNIT/ML 3 ML VIAL SUBCUT (23:40)
[2023-04-08] VITALS (32 sets, daily range): BP systolic 129–191; BP diastolic 36–111; PULSE 98–123; RESP 30–44; TEMP 34.6–38.1; O2SAT 93–99; BMI 33.2
[2023-04-08] MEDS: cefEPime HCl 2 GM in 0.9 % Sodium Chloride 50 ML IV ×2 (00:45→08:22)
[2023-04-08] MEDS: metroNIDAZOLE/NS 500 MG/100 ML PIGGYBACK 100 MG IV (01:27)
[2023-04-08] MEDS: propofoL 1,000 MG/100 ML VIAL 20.7 MG IVCONT ×2 (03:54→08:31)
[2023-04-08] MEDS: Thiamine HCL 200 MG in 0.9 % Sodium Chloride 100 ML IV ×2 (03:55→15:45)
[2023-04-08] MEDS: Lactulose 320 GM/480 ML SOLUTION 200 GM PR ×4 (03:57→20:56)
[2023-04-08 04:34] LABS: VBG Base Excess -1.8 mmol/L; VBG HCO3 21 mmol/L (22-26); VBG pCO2 31 mmHg; VBG pH 7.44 (7.32-7.43); VBG pO2 62 mmHg
[2023-04-08 04:41] LABS: Venous Blood Gas Refer to POC result
[2023-04-08 05:07] LABS: MANUAL DIFF FLAG NO
[2023-04-08 05:14] LABS: Basophils Absolute Auto 0.1 X10*3/uL (0.0-0.2); Basophils Percent Auto 0.7 % (0-2); Eosinophils Absolute Auto 0.5 X10*3/uL (0.0-0.4); Eosinophils Percent Auto 4.5 % (0-4); Hematocrit 26.2 % (42.0-52.0); Hemoglobin 7.7 g/dl (14.0-18.0); Imm Gran Abs Auto 0.17 X10*3/uL (0.00-0.03); Imm Gran Pct Auto 1.7 % (0.0-0.4); Lymphocytes Absolute Auto 0.8 X10*3/uL (1.2-4.9); Lymphocytes Percent Auto 7.9 % (20-40); Mean Corpuscular HGB Conc 29.4 g/dl (31.0-36.0); Mean Corpuscular Hemoglobin 29.7 pg (27.0-33.0); Mean Corpuscular Volume 101.2 fL (80.0-98.0); Monocytes Absolute Auto 0.8 X10*3/uL (0.1-1.2); Monocytes Percent Auto 7.7 % (2-11); Neutrophils Absolute Auto 7.7 x10*3/uL (2.0-8.3); Neutrophils Percent Auto 77.5 % (45-73); Platelet Count 161 X10*3/uL (160-400); Red Blood Count 2.59 X10*6/uL (4.60-5.80); Red Cell Distribution Width 29.3 % (11.0-16.0); White Blood Count 9.9 X10*3/uL (4.8-10.8)
[2023-04-08 05:26] LABS: Glucose, Whole Blood 124 mg/dL (60-115)
[2023-04-08 05:32] LABS: Anion Gap 15 (12-20); Blood Urea Nitrogen 50 mg/dL (9-16); Calcium 9.4 mg/dL (8.4-10.2); Carbon Dioxide 19 mmol/L (22-29); Chloride 123 mmol/L (96-108); Creatinine Clr Calc Pharmacy 76.7; Estimated Glomerular Filt Rate 46; Glucose Random 136 mg/dL (60-115); Magnesium 2.5 mg/dL (1.6-2.6); Phosphorus 3.7 mg/dL (2.7-4.5); Sodium 153 mmol/L (135-145)
[2023-04-08] MEDS: Pantoprazole Sodium 40 MG/10 ML VIAL IVPUSH ×2 (05:36→15:53)
--- NOTE | 2023-04-08 06:31 | PC.NURSE ---
lactulose enemas given as order without increase in return in rectal tube
[2023-04-08 07:10] LABS: Triglycerides 170 mg/dL (<150)
[2023-04-08] MEDS: Chlorhexidine Gluc Oral Rinse 15 ML MOUTHWASH BUCCAL ×3 (07:47→20:56)
[2023-04-08] MEDS: Lactulose 20 GM/30 ML SOLUTION 30 GM PO ×4 (07:47→20:56)
[2023-04-08] MEDS: Chlorothiazide Sodium 500 MG VIAL IVPUSH (07:48)
--- NOTE | 2023-04-08 09:49 | MHC.CLN ---
F/U DISCUSSED AT ROUNDS WITH PT TO START TRICKLE FEED SKIN WITH DTI TO SACRUM REVIEWED LABS DISCUSSED WITH PHARMACY PPN TO CONTINUE AT 95ML/HR PROVIDES 1163KCALS (14.3 KCALS/KG IBW), 228G DEXTROSE, 97G PROTEIN (1.2 G/KG IBW) HOLD LIPIDS REPLETE LYTES NEEDED RECOMMEND STARTING JEVITY 1.0 AT 10ML/HR TO PROVIDE AN ADDITIONAL 254KCALS (1417KCALS TOTAL), 10.6G PROTEIN (107.6G TOTAL PROTEIN; 1.3G/KG), 200ML FREE WATER FROM FORMULA MONITOR TOLERANCE, RESIDUALS AND LYTES
[2023-04-08 09:52] LABS: Vancomycin Random 17.6 mcg/mL (15-20)
--- NOTE | 2023-04-08 10:03 | P.PNCC_ITS ---
Subjective Subjective Date of Service: 04/08/23 Interval History: 37-year-old gentleman with underlying history of alcohol abuse, liver cirrhosis, bipolar disorder MDD admitted on 03/21/2023 with alcohol intoxication. Hospital course significant for abdominal pain for which patient was evaluated by General surgery on 03/22/2023 with no concern for cholecystitis. Further hospital stay complicated by cardiac arrest secondary to pulmonary aspiration of bilious gastric content with returned spontaneous circulation achieved after 3 around of CPR with patient intubated during the CPR and transferred to intensive care unit. In the intensive care unit patient required re-intubation with a large ET tube. OG drained approximately 1 L of bilious fluid. CT abdomen/ pelvis demonstrated dilated bowel loops with no definite transition point. Re- evaluated by General surgery with p.o. contrast noted in colon, thus no intervention warranted at that time. Continues with significant cephalopathy and poor arousal with sedation vacation. MRI brain on 03/28/2023 is essentially normal. No events overnight. Critical Care Time (minutes): 60 Physical Exam 2 Vital Signs: Vital Signs: Last Vital Signs Temp 99.2 F 04/08/23 09:00 Pulse 107 H 04/08/23 09:00 Resp 31 H 04/08/23 09:00 BP 137/90 H 04/08/23 09:00 Pulse Ox 99 04/08/23 09:00 O2 Del Method Mechanical Ventil ation 04/08/23 09:00 O2 Flow Rate 35 04/05/23 20:00 FiO2 30 04/08/23 09:00 BMI result Body Mass Index 33.2 Const: General: no acute distress and other (Jaundiced, poor arousal with sedation vacation) Eyes: Sclerae: scleral abnormal (Icteric) Neck: Neck: Yes no lymphadenopathy, Yes trachea midline and Yes supple Resp: Auscultation: clear to auscultation bilaterally Cardio: Rate: regular rate Rhythm: regular rhythm Heart sounds: no gallops, no murmurs and no rubs GI: Palpation (GI): Soft to palpation and Other GI palpation findings present ( Nontender) Auscultation: normal bowel sounds Extrem: General: No clubbing, No cyanosis and Yes edema (Trace bilateral) Objective Data Labs 04/08/23 04:27 04/08/23 04:27 Labs: Laboratory Results - last 24 hr 04/07/23 04/07/23 04/07/23 11:26 12:01 18:09 WBC RBC Hgb Hct MCV MCH MCHC RDW Plt Count MPV Immature Gran % (Auto) Neut % (Auto) Lymph % (Auto) [place] % (Auto) Eos % (Auto) Baso % (Auto) Lymph # (Auto) [place] # (Auto) Eos # (Auto) Baso # (Auto) Abs Immat Gran (auto) Absolute Neuts (auto) Absolute Nucleated RBC Nucleated RBC % (auto) VBG pH VBG pCO2 VBG pO2 VBG HCO3 VBG O2 Saturation VBG Base Excess Sodium Potassium Chloride Carbon Dioxide Anion Gap BUN Creatinine Estim Creat Clear Calc Estimated GFR POC Glucose 132 H 137 H Random Glucose Calcium Phosphorus Magnesium Total Bilirubin AST ALT Alkaline Phosphatase Total Protein Albumin 3.4 L Triglycerides Random Vancomycin 04/07/23 04/07/23 04/08/23 21:10 23:31 04:27 WBC 9.9 RBC Hgb Hct MCV MCH MCHC RDW Plt Count MPV Immature Gran % (Auto) Neut % (Auto) Lymph % (Auto) [place] % (Auto) Eos % (Auto) Baso % (Auto) Lymph # (Auto) [place] # (Auto) Eos # (Auto) Baso # (Auto) Abs Immat Gran (auto) Absolute Neuts (auto) Absolute Nucleated RBC Nucleated RBC % (auto) VBG pH VBG pCO2 VBG pO2 VBG HCO3 VBG O2 Saturation VBG Base Excess Sodium 155 H Potassium 4.1 Chloride 123 H Carbon Dioxide 20 L Anion Gap 16 BUN 52 H Creatinine 1.84 H Estim Creat Clear Calc 70.8 Estimated GFR 41 POC Glucose 156 H Random Glucose 135 H Calcium 9.7 Phosphorus 2.8 Magnesium 2.6 Total Bilirubin 7.7 H AST 121 H ALT 49 H Alkaline Phosphatase 90 Total Protein 6.8 Albumin 3.2 L Triglycerides 288 H Random Vancomycin 20.0 04/08/23 04/08/23 04/08/23 04:27 04:27 04:27 WBC Cancelled RBC 2.59 L Cancelled Hgb 7.7 L Cancelled Hct 26.2 L MCV MCH MCHC RDW Plt Count MPV Immature Gran % (Auto) Neut % (Auto) Lymph % (Auto) [place] % (Auto) Eos % (Auto) Baso % (Auto) Lymph # (Auto) [place] # (Auto) Eos # (Auto) Baso # (Auto) Abs Immat Gran (auto) Absolute Neuts (auto) Absolute Nucleated RBC Nucleated RBC % (auto) VBG pH VBG pCO2 VBG pO2 VBG HCO3 VBG O2 Saturation VBG Base Excess Sodium Potassium Chloride Carbon Dioxide Anion Gap BUN Creatinine Estim Creat Clear Calc Estimated GFR POC Glucose Random Glucose Calcium Phosphorus Magnesium Total Bilirubin AST ALT Alkaline Phosphatase Total Protein Albumin Triglycerides Random Vancomycin 04/08/23 04/08/23 04/08/23 04:27 04:27 04:27 WBC RBC Hgb Hct Cancelled MCV 101.2 H Cancelled MCH 29.7 Cancelled MCHC 29.4 L RDW Plt Count MPV Immature Gran % (Auto) Neut % (Auto) Lymph % (Auto) [place] % (Auto) Eos % (Auto) Baso % (Auto) Lymph # (Auto) [place] # (Auto) Eos # (Auto) Baso # (Auto) Abs Immat Gran (auto) Absolute Neuts (auto) Absolute Nucleated RBC Nucleated RBC % (auto) VBG pH VBG pCO2 VBG pO2 VBG HCO3 VBG O2 Saturation VBG Base Excess Sodium Potassium Chloride Carbon Dioxide Anion Gap BUN Creatinine Estim Creat Clear Calc Estimated GFR POC Glucose Random Glucose Calcium Phosphorus Magnesium Total Bilirubin AST ALT Alkaline Phosphatase Total Protein Albumin Triglycerides Random Vancomycin 04/08/23 04/08/23 04/08/23 04:27 04:27 04:27 WBC RBC Hgb Hct MCV MCH MCHC Cancelled RDW 29.3 H Cancelled Plt Count 161 Cancelled MPV Not Reportable Immature Gran % (Auto) Neut % (Auto) Lymph % (Auto) [place] % (Auto) Eos % (Auto) Baso % (Auto) Lymph # (Auto) [place] # (Auto) Eos # (Auto) Baso # (Auto) Abs Immat Gran (auto) Absolute Neuts (auto) Absolute Nucleated RBC Nucleated RBC % (auto) VBG pH VBG pCO2 VBG pO2 VBG HCO3 VBG O2 Saturation VBG Base Excess Sodium Potassium Chloride Carbon Dioxide Anion Gap BUN Creatinine Estim Creat Clear Calc Estimated GFR POC Glucose Random Glucose Calcium Phosphorus Magnesium Total Bilirubin AST ALT Alkaline Phosphatase Total Protein Albumin Triglycerides Random Vancomycin 04/08/23 04/08/23 04/08/23 04:27 04:27 04:27 WBC RBC Hgb Hct MCV MCH MCHC RDW Plt Count MPV Cancelled Immature Gran % (Auto) 1.7 H Cancelled Neut % (Auto) 77.5 H Cancelled Lymph % (Auto) 7.9 L [place] % (Auto) Eos % (Auto) Baso % (Auto) Lymph # (Auto) [place] # (Auto) Eos # (Auto) Baso # (Auto) Abs Immat Gran (auto) Absolute Neuts (auto) Absolute Nucleated RBC Nucleated RBC % (auto) VBG pH VBG pCO2 VBG pO2 VBG HCO3 VBG O2 Saturation VBG Base Excess Sodium Potassium Chloride Carbon Dioxide Anion Gap BUN Creatinine Estim Creat Clear Calc Estimated GFR POC Glucose Random Glucose Calcium Phosphorus Magnesium Total Bilirubin AST ALT Alkaline Phosphatase Total Protein Albumin Triglycerides Random Vancomycin 04/08/23 04/08/23 04/08/23 04:27 04:27 04:27 WBC RBC Hgb Hct MCV MCH MCHC RDW Plt Count MPV Immature Gran % (Auto) Neut % (Auto) Lymph % (Auto) Cancelled [place] % (Auto) 7.7 Cancelled Eos % (Auto) 4.5 H Cancelled Baso % (Auto) 0.7 Lymph # (Auto) [place] # (Auto) Eos # (Auto) Baso # (Auto) Abs Immat Gran (auto) Absolute Neuts (auto) Absolute Nucleated RBC Nucleated RBC % (auto) VBG pH VBG pCO2 VBG pO2 VBG HCO3 VBG O2 Saturation VBG Base Excess Sodium Potassium Chloride Carbon Dioxide Anion Gap BUN Creatinine Estim Creat Clear Calc Estimated GFR POC Glucose Random Glucose Calcium Phosphorus Magnesium Total Bilirubin AST ALT Alkaline Phosphatase Total Protein Albumin Triglycerides Random Vancomycin 04/08/23 04/08/23 04/08/23 04:27 04:27 04:27 WBC RBC Hgb Hct MCV MCH MCHC RDW Plt Count MPV Immature Gran % (Auto) Neut % (Auto) Lymph % (Auto) [place] % (Auto) Eos % (Auto) Baso % (Auto) Cancelled Lymph # (Auto) 0.8 L Cancelled [place] # (Auto) 0.8 Cancelled Eos # (Auto) 0.5 H Baso # (Auto) Abs Immat Gran (auto) Absolute Neuts (auto) Absolute Nucleated RBC Nucleated RBC % (auto) VBG pH VBG pCO2 VBG pO2 VBG HCO3 VBG O2 Saturation VBG Base Excess Sodium Potassium Chloride Carbon Dioxide Anion Gap BUN Creatinine Estim Creat Clear Calc Estimated GFR POC Glucose Random Glucose Calcium Phosphorus Magnesium Total Bilirubin AST ALT Alkaline Phosphatase Total Protein Albumin Triglycerides Random Vancomycin 04/08/23 04/08/23 04/08/23 04:27 04:27 04:27 WBC RBC Hgb Hct MCV MCH MCHC RDW Plt Count MPV Immature Gran % (Auto) Neut % (Auto) Lymph % (Auto) [place] % (Auto) Eos % (Auto) Baso % (Auto) Lymph # (Auto) [place] # (Auto) Eos # (Auto) Cancelled Baso # (Auto) 0.1 Cancelled Abs Immat Gran (auto) 0.17 H Cancelled Absolute Neuts (auto) 7.7 Absolute Nucleated RBC Nucleated RBC % (auto) VBG pH VBG pCO2 VBG pO2 VBG HCO3 VBG O2 Saturation VBG Base Excess Sodium Potassium Chloride Carbon Dioxide Anion Gap BUN Creatinine Estim Creat Clear Calc Estimated GFR POC Glucose Random Glucose Calcium Phosphorus Magnesium Total Bilirubin AST ALT Alkaline Phosphatase Total Protein Albumin Triglycerides Random Vancomycin 04/08/23 04/08/23 04/08/23 04:27 04:27 04:27 WBC RBC Hgb Hct MCV MCH MCHC RDW Plt Count MPV Immature Gran % (Auto) Neut % (Auto) Lymph % (Auto) [place] % (Auto) Eos % (Auto) Baso % (Auto) Lymph # (Auto) [place] # (Auto) Eos # (Auto) Baso # (Auto) Abs Immat Gran (auto) Absolute Neuts (auto) Cancelled Absolute Nucleated RBC 0.000 Cancelled Nucleated RBC % (auto) 0.0 Cancelled VBG pH VBG pCO2 VBG pO2 VBG HCO3 VBG O2 Saturation VBG Base Excess Sodium 153 H Potassium 4.0 Chloride 123 H Carbon Dioxide 19 L Anion Gap 15 BUN 50 H Creatinine 1.68 H Estim Creat Clear Calc 76.7 Estimated GFR 46 POC Glucose Random Glucose 136 H Calcium 9.4 Phosphorus 3.7 Magnesium 2.5 Total Bilirubin AST ALT Alkaline Phosphatase Total Protein Albumin Triglycerides 170 H Random Vancomycin 04/08/23 04/08/23 04/08/23 04:28 05:23 09:13 WBC RBC Hgb Hct MCV MCH MCHC RDW Plt Count MPV Immature Gran % (Auto) Neut % (Auto) Lymph % (Auto) [place] % (Auto) Eos % (Auto) Baso % (Auto) Lymph # (Auto) [place] # (Auto) Eos # (Auto) Baso # (Auto) Abs Immat Gran (auto) Absolute Neuts (auto) Absolute Nucleated RBC Nucleated RBC % (auto) VBG pH 7.44 H VBG pCO2 31 VBG pO2 62 VBG HCO3 21 L VBG O2 Saturation 86.0 VBG Base Excess -1.8 Sodium Potassium Chloride Carbon Dioxide Anion Gap BUN Creatinine Estim Creat Clear Calc Estimated GFR POC Glucose 124 H Random Glucose Calcium Phosphorus Magnesium Total Bilirubin AST ALT Alkaline Phosphatase Total Protein Albumin Triglycerides Random Vancomycin 17.6 Microbiology Microbiology Results: Microbiology 04/01/23 18:54 Blood - Venous Blood Culture - Final No growth after 5 days. 04/01/23 18:54 Blood - Venous Blood Culture - Final No growth after 5 days. 04/03/23 14:57 Gallbladder Gram Stain - Final 04/03/23 14:57 Gallbladder Routine Culture - Final No growth after 2 days 03/29/23 11:45 Sputum - Suctioned Gram Stain - Final 03/29/23 11:45 Sputum - Suctioned Sputum Culture - Final Staphylococcus aureus Escherichia coli 03/25/23 19:18 Blood - Venous Blood Culture - Final No growth after 5 days. 03/25/23 19:18 Blood - Venous Blood Culture - Final No growth after 5 days. 03/22/23 23:25 Blood - Venous Blood Culture - Final No growth after 5 days. 03/22/23 23:25 Blood - Venous Blood Culture - Final No growth after 5 days. Progress Note: A&P Assessment and plan (1) Encephalopathy: Status: Acute (2) TILA (acute kidney injury): Status: Acute (3) Hyperbilirubinemia: Status: Acute (4) Ileus: Status: Acute (5) Aspiration into airway: Status: Acute (6) Cardiopulmonary arrest with successful resuscitation: Status: Acute (7) Liver cirrhosis: Status: Acute Plan Assessment: 37-year-old gentleman admitted with alcohol intoxication on the background of degree cirrhosis with hospital course complicated by cardiopulmonary arrest secondary to pulmonary aspiration secondary to underlying ileus Plan: Neuro: Hepatic encephalopathy, continue lactulose. Poor arousal with sedation vacation, though with slow incremental improvements, MRI brain normal on 03/28/2023. Cardiac: Cardiac arrest secondary to pulmonary aspiration. Continue to titrate off pressors as tolerated. 2D echo is normal. Pulmonary: Intubated during the CPR on the background of aspiration of gastric content. Continue to titrate off ventilatory support as tolerated. Discussions about tracheostomy ongoing. Renal: acute kidney injury, non oliguric, improved. Nephrology evaluation requested. Continue to monitor renal indices and urine output. Endo: No acute issues. GI: Alcoholic liver cirrhosis with hyperbilirubinemia, improving. Ileus, now s/p neostigmine x3 with resolution of abdominal distension. General surgery and gastroenterology services care appreciated. ID: aspiration ppneumonia after aspiration of gastric contents. Treated for Staphylococcus aureus and E coli in sputum. Will monitor off antibiotics at this time. Heme/Onc: No acute issues. Psych: No acute issues. Miscellaneous: No acute issues. Prophylaxis: Heparin, ppi Diet: TPN, trophic tube feeds Critical care time spent: 60 minutes Quality Stroke Does the patient have a stroke diagnosis?: No VTE Prior VTE?: No VTE Risk Level:: Medical - moderate - high VTE Device Contraindication: N/A - Device Ordered VTE Drug Contraindication: Treatment Not Tolerated
[2023-04-08] MEDS: HYDROmorphone HCl 0.5 MG/0.5 ML SYRINGE IVPUSH ×2 (10:20→22:44)
[2023-04-08] MEDS: Albuterol Sulfate (0.083%) 2.5 MG/3 ML VIAL.NEB INHALE (11:14)
[2023-04-08 11:45] LABS: Glucose, Whole Blood 125 mg/dL (60-115)
--- NOTE | 2023-04-08 13:35 | MHC.CM.PN ---
This manual writer asked to apeak with patient's family in regards to disability paperwork. Records provided to family. Call placed to Dr. Zelaya's Office and Dr. Mederos's office to assist in facilitating additional paperwork needed for disability insurance. Follow-up completed with family.
[2023-04-08] MEDS: Folic Acid 2 MG in 0.9 % Sodium Chloride 50 ML 100.4 MG IV (17:42)
[2023-04-08] MEDS: Insulin Lispro 100 UNIT/ML 3 ML VIAL SUBCUT (17:55)
[2023-04-08 17:56] LABS: Glucose, Whole Blood 159 mg/dL (60-115)
[2023-04-08] MEDS: Parenteral Nutrition 2,280 ML 95 ML IV (20:54)
[2023-04-08] MEDS: Midazolam HCl/PF 2 MG/2 ML VIAL IVPUSH (21:30)
[2023-04-08] MEDS: fentaNYL citrate/NS 1,000 MCG/100 ML PLAST..BAG 2.5 MCG IVCONT (22:58)
[2023-04-08 23:49] LABS: Glucose, Whole Blood 136 mg/dL (60-115)
[2023-04-09] VITALS (31 sets, daily range): BP systolic 96–156; BP diastolic 48–93; PULSE 26–133; RESP 17–40; TEMP 35–43.4; O2SAT 89–100; BMI 32.7
[2023-04-09] MEDS: Lactulose 320 GM/480 ML SOLUTION 200 GM PR ×3 (02:44→21:03)
[2023-04-09] MEDS: Thiamine HCL 200 MG in 0.9 % Sodium Chloride 100 ML IV ×2 (03:15→15:24)
[2023-04-09] MEDS: Acetaminophen 1,000 MG/100 ML PIGGYBACK 400 MG IV ×2 (04:06→18:34)
[2023-04-09 05:05] LABS: MANUAL DIFF FLAG NO
[2023-04-09 05:08] LABS: VBG Base Excess -1.4 mmol/L; VBG HCO3 21 mmol/L (22-26); VBG pCO2 28 mmHg; VBG pH 7.48 (7.32-7.43); VBG pO2 60 mmHg
[2023-04-09 05:10] LABS: Basophils Absolute Auto 0.1 X10*3/uL (0.0-0.2); Basophils Percent Auto 0.7 % (0-2); Eosinophils Absolute Auto 0.4 X10*3/uL (0.0-0.4); Eosinophils Percent Auto 4.4 % (0-4); Hematocrit 24.8 % (42.0-52.0); Hemoglobin 7.3 g/dl (14.0-18.0); Imm Gran Abs Auto 0.08 X10*3/uL (0.00-0.03); Imm Gran Pct Auto 0.8 % (0.0-0.4); Mean Corpuscular HGB Conc 29.4 g/dl (31.0-36.0); Mean Corpuscular Volume 102.1 fL (80.0-98.0); Monocytes Absolute Auto 0.8 X10*3/uL (0.1-1.2); Monocytes Percent Auto 8.5 % (2-11); Neutrophils Absolute Auto 7.2 x10*3/uL (2.0-8.3); Neutrophils Percent Auto 75.6 % (45-73); Platelet Count 147 X10*3/uL (160-400); Red Blood Count 2.43 X10*6/uL (4.60-5.80); White Blood Count 9.5 X10*3/uL (4.8-10.8)
[2023-04-09 05:25] LABS: Alanine Aminotransferase 52 U/L (0-40); Albumin Level 3.2 g/dL (3.5-5.0); Alkaline Phosphatase 101 U/L (39-117); Anion Gap 15 (12-20); Aspartate Amino Transferase 120 U/L (5-37); Bilirubin Total 6.9 mg/dL (0.0-1.0); Blood Urea Nitrogen 58 mg/dL (9-16); Calcium 9.7 mg/dL (8.4-10.2); Carbon Dioxide 21 mmol/L (22-29); Chloride 125 mmol/L (96-108); Creatinine Clr Calc Pharmacy 74.9; Estimated Glomerular Filt Rate 45; Glucose Random 155 mg/dL (60-115); Magnesium 2.8 mg/dL (1.6-2.6); Potassium 4.6 mmol/L (3.3-5.1); Sodium 156 mmol/L (135-145); Total Protein 6.6 g/dL (6.5-8.0)
[2023-04-09] MEDS: Insulin Lispro 100 UNIT/ML 3 ML VIAL SUBCUT (05:34)
[2023-04-09] MEDS: Pantoprazole Sodium 40 MG/10 ML VIAL IVPUSH (05:34)
[2023-04-09 05:45] LABS: Venous Blood Gas Refer to POC result
[2023-04-09] MEDS: Dextrose 5 % 1,000 ML 200 ML IVCONT ×2 (08:00→12:37)
[2023-04-09] MEDS: Folic Acid 2 MG in 0.9 % Sodium Chloride 50 ML 100.4 MG IV (08:09)
[2023-04-09] MEDS: Chlorhexidine Gluc Oral Rinse 15 ML MOUTHWASH BUCCAL ×3 (08:20→20:19)
[2023-04-09] MEDS: Lactulose 20 GM/30 ML SOLUTION 30 GM PO ×4 (08:26→20:19)
--- NOTE | 2023-04-09 09:41 | MHC.CLN ---
F/U DISCUSSED AT ROUNDS WITH MD PURVIS TO D/C PPN PLAN TO INCREASE TF TO HALF STRENGTH PT CURRENTLY TOLERATING TRICKLE FEED IN ADDITION TO D5W RECOMMEND INCREASING JEVITY 1.0 TO 40ML/HR TO PROVIDE 1017KCALS (55% EST KCAL NEEDS), 42G PROTEIN, 802ML FREE WATER FROM FORMULA MONITOR TOLERANCE, RESIDUALS AND LYTES
--- NOTE | 2023-04-09 09:46 | PM.CCPN ---
Subjective Subjective Date of Service: 04/09/23 Interval History: 37-year-old gentleman with underlying history of alcohol abuse, liver cirrhosis, bipolar disorder MDD admitted on 03/21/2023 with alcohol intoxication. Hospital course significant for abdominal pain for which patient was evaluated by General surgery on 03/22/2023 with no concern for cholecystitis. Further hospital stay complicated by cardiac arrest secondary to pulmonary aspiration of bilious gastric content with returned spontaneous circulation achieved after 3 around of CPR with patient intubated during the CPR and transferred to intensive care unit. In the intensive care unit patient required re-intubation with a large ET tube. OG drained approximately 1 L of bilious fluid. CT abdomen/ pelvis demonstrated dilated bowel loops with no definite transition point. Re-evaluated by General surgery with p.o. contrast noted in colon, thus no intervention warranted at that time. Continues with significant cephalopathy and poor arousal with sedation vacation. MRI brain on 03/28/2023 is essentially normal. Status post cholecystostomy on 04/03. No events overnight. Critical Care Time (minutes): 60 Physical Exam Vital Signs: Vital Signs: Last Vital Signs Temp 110.2 F H 04/09/23 09:00 Pulse 114 H 04/09/23 09:00 Resp 37 H 04/09/23 09:00 BP 135/79 04/09/23 09:00 Pulse Ox 98 04/09/23 09:00 O2 Del Method Mechanical Ventil ation 04/09/23 09:00 O2 Flow Rate 35 04/05/23 20:00 FiO2 30 04/09/23 09:00 BMI result Body Mass Index 32.7 Const: General: no acute distress and other (No arousal with sedation vacation) Eyes: Sclerae: scleral abnormal (Icteric) Neck: Neck: Yes no lymphadenopathy, Yes trachea midline and Yes supple Resp: Auscultation: clear to auscultation bilaterally Cardio: Rate: tachycardic Rhythm: regular rhythm Heart sounds: no gallops, no murmurs and no rubs GI: Palpation (GI): Soft to palpation and Other GI palpation findings present ( Nontender) Auscultation: normal bowel sounds Extrem: General: Yes no pedal edema, No clubbing and No cyanosis Objective Data Labs 04/09/23 04:56 04/09/23 04:56 Labs: Laboratory Results - last 24 hr 12/08/2604/08/23 04/08/23 09:13 11:42 17:51 WBC RBC Hgb Hct MCV MCH MCHC RDW Plt Count MPV Immature Gran % (Auto) Neut % (Auto) Lymph % (Auto) [place] % (Auto) Eos % (Auto) Baso % (Auto) Lymph # (Auto) [place] # (Auto) Eos # (Auto) Baso # (Auto) Abs Immat Gran (auto) Absolute Neuts (auto) Absolute Nucleated RBC Nucleated RBC % (auto) VBG pH VBG pCO2 VBG pO2 VBG HCO3 VBG O2 Saturation VBG Base Excess Sodium Potassium Chloride Carbon Dioxide Anion Gap BUN Creatinine Estim Creat Clear Calc Estimated GFR POC Glucose 125 H 159 H Random Glucose Calcium Phosphorus Magnesium Total Bilirubin AST ALT Alkaline Phosphatase Total Protein Albumin Random Vancomycin 17.6 04/08/23 04/09/23 04/09/23 23:45 04:56 05:02 WBC 9.5 RBC 2.43 L Hgb 7.3 L Hct 24.8 L MCV 102.1 H MCH 30.0 MCHC 29.4 L RDW TNP Plt Count 147 L MPV TNP Immature Gran % (Auto) 0.8 H Neut % (Auto) 75.6 H Lymph % (Auto) 10.0 L [place] % (Auto) 8.5 Eos % (Auto) 4.4 H Baso % (Auto) 0.7 Lymph # (Auto) 1.0 L [place] # (Auto) 0.8 Eos # (Auto) 0.4 Baso # (Auto) 0.1 Abs Immat Gran (auto) 0.08 H Absolute Neuts (auto) 7.2 Absolute Nucleated RBC 0.000 Nucleated RBC % (auto) 0.0 VBG pH 7.48 H VBG pCO2 28 VBG pO2 60 VBG HCO3 21 L VBG O2 Saturation 86.0 VBG Base Excess -1.4 Sodium 156 H Potassium 4.6 Chloride 125 H Carbon Dioxide 21 L Anion Gap 15 BUN 58 H Creatinine 1.72 H Estim Creat Clear Calc 74.9 Estimated GFR 45 POC Glucose 136 H Random Glucose 155 H Calcium 9.7 Phosphorus 4.0 Magnesium 2.8 H Total Bilirubin 6.9 H AST 120 H ALT 52 H Alkaline Phosphatase 101 Total Protein 6.6 Albumin 3.2 L Random Vancomycin Microbiology Microbiology Results: Microbiology 04/01/23 18:54 Blood - Venous Blood Culture - Final No growth after 5 days. 04/01/23 18:54 Blood - Venous Blood Culture - Final No growth after 5 days. 04/03/23 14:57 Gallbladder Gram Stain - Final 04/03/23 14:57 Gallbladder Routine Culture - Final No growth after 2 days 03/29/23 11:45 Sputum - Suctioned Gram Stain - Final 03/29/23 11:45 Sputum - Suctioned Sputum Culture - Final Staphylococcus aureus Escherichia coli 03/25/23 19:18 Blood - Venous Blood Culture - Final No growth after 5 days. 03/25/23 19:18 Blood - Venous Blood Culture - Final No growth after 5 days. 03/22/23 23:25 Blood - Venous Blood Culture - Final No growth after 5 days. 03/22/23 23:25 Blood - Venous Blood Culture - Final No growth after 5 days. Progress Note: A&P Assessment and plan (1) Encephalopathy: Status: Acute (2) Aspiration of gastric contents: Status: Acute (3) TILA (acute kidney injury): Status: Acute (4) Hyperbilirubinemia: Status: Acute (5) Ileus: Status: Acute (6) Aspiration into airway: Status: Acute (7) Cardiopulmonary arrest with successful resuscitation: Status: Acute (8) Cholecystitis: Status: Acute (9) Alcoholic liver disease: Status: Acute Plan Assessment: 37-year-old gentleman admitted with alcohol intoxication on the background of degree cirrhosis with hospital course complicated by cardiopulmonary arrest secondary to pulmonary aspiration secondary to underlying ileus Plan: Neuro: Hepatic encephalopathy, continue lactulose. Poor arousal with sedation vacation, though with slow incremental improvements, MRI brain normal on 03/28/2023. Cardiac: Cardiac arrest secondary to pulmonary aspiration. Continue to titrate off pressors as tolerated. 2D echo is normal. Pulmonary: Intubated during the CPR on the background of aspiration of gastric content. Continue to titrate off ventilatory support as tolerated. Discussions about tracheostomy ongoing. Renal: acute kidney injury, non oliguric, improved. Nephrology evaluation requested. Continue to monitor renal indices and urine output. Endo: No acute issues. GI: Alcoholic liver cirrhosis with hyperbilirubinemia, improving. Ileus, now s/p neostigmine x3 with resolution of abdominal distension, now tolerating tube feeds. Cholecystitis status post cholecystostomy. General surgery and gastroenterology services care appreciated. ID: aspiration ppneumonia after aspiration of gastric contents. Treated for Staphylococcus aureus and E coli in sputum. Will monitor off antibiotics at this time. Heme/Onc: No acute issues. Psych: No acute issues. Miscellaneous: No acute issues. Prophylaxis: Heparin, ppi Diet: tube feeds Critical care time spent: 60 minutes Quality Stroke Does the patient have a stroke diagnosis?: No VTE Prior VTE?: No VTE Risk Level:: Medical - moderate - high VTE Device Contraindication: N/A - Device Ordered VTE Drug Contraindication: Treatment Not Tolerated
[2023-04-09] MEDS: propofoL 1,000 MG/100 ML VIAL 20.7 MG IVCONT ×2 (11:13→22:13)
[2023-04-09 12:14] LABS: Glucose, Whole Blood 140 mg/dL (60-115)
--- NOTE | 2023-04-09 13:04 | PM.PNTS ---
Subjective Subjective Date of Service: 04/09/23 Interval history: Patient well known to the General and thoracic surgery service. Unable to wean from ventilator.. Approximate 3 weeks on vent. Also needs enteral nutrition inform of PEG tube Physical Exam Vital Signs: Vital Signs: Last Vital Signs Temp 101.3 F H 04/09/23 11:00 Pulse 122 H 04/09/23 11:00 Resp 36 H 04/09/23 11:00 BP 156/93 H 04/09/23 11:00 Pulse Ox 96 04/09/23 11:00 O2 Del Method Mechanical Ventil ation 04/09/23 11:00 O2 Flow Rate 35 04/05/23 20:00 FiO2 30 04/09/23 12:00 BMI result Body Mass Index 32.7 Chest: Other: On vent, sedated. GI: Other: Corpulent, distended, soft Procedures Date of Service Date of Service: 04/09/23 Progress Note: A&P Assessment and plan (1) Ventilator dependent: Status: Acute (2) Malnutrition: Status: Acute Plan Risks, benefits, alternatives of the 1. Tracheostomy tube placement 2. Peg placement were reviewed with the patient's parents and included but not limited to bleeding, infection, numbness, pain, scarring and the patient's parents wished to proceed. All questions were answered. Consent was signed. Tentatively scheduled for tomorrow. Time Spent With Patient Time: Total time managing care of this patient today ____ minutes. Quality Stroke Does the patient have a stroke diagnosis?: No VTE Prior VTE?: No VTE Risk Level:: Medical - moderate - high VTE Device Contraindication: N/A - Device Ordered VTE Drug Contraindication: Treatment Not Tolerated
--- NOTE | 2023-04-09 13:21 | P.CONAN_ITS ---
HPI - Anesthesia Eval Consult details Narrative: 37 yo male patient for tracheostomy and open gastrostomy tube placement for failure to wean. Intubated and ventilated since 03/22/23 following cardiac arrest. Patient was seen in ER on 02/17/23 for c/o back pain. Noted to be tremulous, jaundiced and smelling of alcohol. Refused further w/u and signed out AMA. Had L5-S1 microlumbar discectomy on 03/11/23 and discharged apparently with no problems. Presented to ER on 03/21/23 with altered mental status and was admitted for further evaluation and management. Suffered a cardiac arrest on 03/22/23 due to gastric aspiration. Has remained intubated and ventilated since. [facility] Active Problems Active Problems: All Active Problems (Updated 04/09/23 @ 13:05 by Maricel Biswas MD) Malnutrition (Acute) Ventilator dependent (Acute) Cholecystitis (Acute) Encephalopathy (Acute) Metabolic acidosis (Acute) Aspiration of gastric contents (Acute) TILA (acute kidney injury) (Acute) Hyperbilirubinemia (Acute) Ileus (Acute) Aspiration into airway (Acute) Pulmonary aspiration (Acute) Pulmonary edema (Acute) Elevated lactic acid level (Acute) Cardiopulmonary arrest with successful resuscitation (Acute) Liver cirrhosis (Acute) Alcoholic liver disease (Acute) Alcohol withdrawal (Acute) Anemia (Acute) Encephalopathy, hepatic (Acute) Lumbar disc herniation with radiculopathy (Acute) Constipation (Acute) Spondylolisthesis of lumbar region (Acute) Muscle spasm (Acute) Lumbosacral spondylosis (Acute) Lumbar degenerative disc disease (Acute) Skin lesion of left arm (Acute) HLD (hyperlipidemia) (Acute) Herniated nucleus pulposus, L5-S1 (Acute) Eczema (Acute) MDD (major depressive disorder), recurrent episode, moderate (Acute) Fatty liver (Acute) GERD (gastroesophageal reflux disease) (Acute) Bipolar 1 disorder (Acute) Erectile dysfunction (Acute) Asthma (Acute) Insomnia (Acute) Interstitial cystitis (Acute) ANUJ (generalized anxiety disorder) (Acute) Past Medical History Medical History Obese Annual physical exam Elevated LFTs Screening for hypothyroidism Screening for hypercholesterolemia Screening for diabetes mellitus (DM) History of epididymitis Erectile dysfunction Orchalgia Frequency of urination Anxiety Erectile dysfunction Chronic lower back pain Fibromyalgia Family History Family History Father Osteoarthritis HTN (hypertension) Heart attack, Onset Age: 67 Mother No problems noted. Brother IBS (irritable bowel syndrome) Other Mental health disorder Family history of problems with anesthesia: No Surgical History Surgical History (Updated 04/10/23 @ 08:03 by Maricel Biswas MD) History of lumbar discectomy History of shoulder surgery History of Problems with Anesthesia: No Social History Social History Household Members: Significant Other Household Members Other:: girlfriend, Veda Housing: House Do you presently have visiting nurse or other home services: No Alcohol intake: current Alcohol intake frequency: 3 or more drinks per day Alcohol type: hard liquor Comment: N/A Patient Tobacco Use Status: Former Tobacco user Tobacco use type: Cigar e-Cigarette/Vaping Use: Former Use Second Hand Smoke Exposure: No Substance Use Type: Marijuana service: No Current occupational status: employed 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 Glucose (Glucose Gel 15 Gm Gel..Gram.) 15 gm PO Q15M PRN; Protocol PRN Reason: per Hypoglycemia Standing Ord. Hydromorphone HCl (Hydromorphone Hcl 0.5 Mg/0.5 Ml Syringe) 0.5 mg IVPUSH Q4H PRN; Protocol PRN Reason: Agitation Last Admin: 04/08/23 22:44 Dose: 0.5 mg Propofol (Diprivan) 1,000 mg in 100 mls @ 0 mls/hr IVCONT .Q0M MEÑO; Protocol Last Titration: 04/09/23 12:30 Dose: 10 mcg/kg/min, 6.9 mls/hr Thiamine HCl 200 mg/ Sodium (Chloride) 102 mls @ 204 mls/hr IV Q12H MEÑO Stop: 04/11/23 15:59 Last Infusion: 04/09/23 04:03 Dose: Infused Acetaminophen (Ofirmev) 1,000 mg in 100 mls @ 400 mls/hr IV Q12H PRN PRN Reason: Fever Last Infusion: 04/09/23 04:24 Dose: Infused Nutrition (Parenteral) (Parenteral Nutrition) 2,280 mls @ 95 mls/hr IV .Q24H [facility]; Protocol Stop: 04/09/23 20:59 Last Admin: 04/08/23 20:54 Dose: 95 mls/hr Folic Acid 2 mg/ Sodium (Chloride) 50.4 mls @ 100.4 mls/hr IV DAILY [facility] Stop: 04/10/23 09:31 Last Infusion: 04/09/23 08:56 Dose: Infused Dextrose (D5w) 1,000 mls @ 200 mls/hr IVCONT .Q5H [facility] Stop: 04/09/23 17:44 Last Admin: 04/09/23 12:37 Dose: 200 mls/hr Insulin Human Lispro (Insulin Lispro 100 Unit/Ml 3 Ml Vial) 0 unit SUBCUT Q6H [facility]; Protocol Last Admin: 04/09/23 12:20 Dose: Not Given Lactulose (Lactulose 20 Gm/30 Ml Solution) 30 gm PO QID [facility] Last Admin: 04/09/23 12:24 Dose: 30 gm Lactulose (Lactulose 320 Gm/480 Ml Solution) 200 gm OH Q12H [facility] Last Admin: 04/09/23 10:15 Dose: Not Given Sodium Chloride (0.9 % Sodium Chloride Flush 3 Ml Syringe) 3 ml IVFLUSH QSHIFT [facility] Last Admin: 03/22/23 16:00 Dose: 3 ml Home Medications Medication Instructions Recorded Confirmed Last Taken Type propranolol 10 mg tablet 10 mg PO BID PRN Anxiety 10/17/22 03/21/23 Unknown History albuterol sulfate 90 mcg/actuation 1 puff PO QID PRN Shortness Of 03/21/23 03/21/23 Unknown History aerosol inhaler Breath Or Wheezing betamethasone dipropionate 0.05 % 1 appl topical DAILY PRN Rash 03/21/23 03/21/23 Unknown History topical cream sennosides 8.6 mg tablet (senna) 8.6 mg PO BEDTIME PRN constipation 03/21/23 03/21/23 Unknown History Exam Height,Weight and Vital Signs: Height 6 ft Weight 109.3 kg Last Vital Signs Temp 102.2 F H 04/09/23 13:00 Pulse 123 H 04/09/23 13:00 Resp 26 H 04/09/23 13:00 BP 129/72 04/09/23 13:00 Pulse Ox 99 04/09/23 13:00 O2 Del Method Mechanical Ventilation 04/09/23 13:00 O2 Flow Rate 35 04/05/23 20:00 FiO2 30 04/09/23 13:00 Pertinent Lab Results Pertinent Lab Results: Laboratory Tests 03/21/23 03/21/23 03/22/23 12:34 17:57 06:20 WBC 10.1 RBC 3.04 L D Hgb 8.8 L D Hct 26.3 L D MCV 86.5 MCH 28.9 MCHC 33.5 RDW 23.2 H Plt Count 202 MPV 10.8 Immature Gran % (Auto) 2.2 H Neut % (Auto) 73.7 H Lymph % (Auto) 11.9 L [place] % (Auto) 10.1 Eos % (Auto) 1.4 Baso % (Auto) 0.7 Lymph # (Auto) 1.2 [place] # (Auto) 1.0 Eos # (Auto) 0.1 Baso # (Auto) 0.1 Abs Immat Gran (auto) 0.22 H Absolute Neuts (auto) 7.5 Absolute Nucleated RBC 0.000 Nucleated RBC % (auto) 0.0 Neutrophils % (Manual) Band Neutrophils % Lymphocytes % (Manual) Atypical Lymphs % (Man) Monocytes % (Manual) Eosinophils % (Manual) Basophils % (Manual) Metamyelocytes % Myelocytes % Promyelocytes % Abs Neuts (Manual) Lymphocytes # (Manual) Atyp Lymphs # (Manual) Monocytes # (Manual) Eosinophils # (Manual) Basophils # (Manual) Metamyelocytes # Myelocytes # Promyelocytes # Nucleated RBCs Hypersegmented Neuts Smudge Cells Toxic Granulation Toxic Vacuolation Dohle Bodies Platelet Estimate Large Platelets Plt Morphology Comment RBC Morphology Polychromasia Hypochromasia Basophilic Stippling Microcytosis Macrocytosis Spherocytes Target Cells Tear Drop Cells Ovalocytes Frank Cells Acanthocytes (Spur) Schistocytes Smear Tech's Comments Smear Path Review Hold Purple Top PT 15.0 H INR 1.2 H APTT 36.9 H O2 Saturation 84.0 ABG pH at Pt Temp 7.46 H ABG pCO2 at Pt Temp 31 L ABG pO2 at Pt Temp 59 L ABG HCO3 22 ABG Base Excess (Actual) -0.6 VBG pH VBG pCO2 VBG pO2 VBG HCO3 VBG O2 Saturation VBG Base Excess Sodium 130 L Potassium 4.8 D Chloride 95 L Carbon Dioxide 24 Anion Gap 16 BUN 10 Creatinine 0.67 Estim Creat Clear Calc 197.8 Estimated GFR > 60 POC Glucose Random Glucose 127 H Lactic Acid Lactic Acid F/U @ 2Hr Lactic Acid F/U @ 4Hr Calcium 10.3 H Phosphorus Magnesium Iron 33 L TIBC 238 % Saturation 14 L Unsat Iron Binding 205 Total Bilirubin 11.3 H Direct Bilirubin 8.8 H AST 284 H ALT 42 H Alkaline Phosphatase 261 H Ammonia 127 H Troponin I High Sens B-Natriuretic Peptide Total Protein 7.2 Albumin 3.2 L Triglycerides TSH Hold Yellow Top Urine Color Urine Appearance Urine pH Ur Specific [place] Urine Protein Urine Glucose (UA) Urine Ketones Urine Blood Urine Nitrite Ur Leukocyte Esterase Urine RBC Urine WBC Ur Squamous Epith Cells Urine Bacteria Hyaline Casts U Random Total Protein Ur Random Sodium Urine Creatinine Stool Occult Blood Vancomycin Trough Random Vancomycin Ethyl Alcohol 272 Blood Type Antibody Screen Crossmatch 03/22/23 03/22/23 03/22/23 07:02 12:21 21:47 WBC 8.8 RBC 3.20 L Hgb 9.4 L Hct 27.8 L MCV 86.9 MCH 29.4 MCHC 33.8 RDW 24.3 H Plt Count 222 MPV 11.0 Immature Gran % (Auto) Neut % (Auto) Lymph % (Auto) [place] % (Auto) Eos % (Auto) Baso % (Auto) Lymph # (Auto) [place] # (Auto) Eos # (Auto) Baso # (Auto) Abs Immat Gran (auto) Absolute Neuts (auto) Absolute Nucleated RBC 0.020 H Nucleated RBC % (auto) 0.2 Neutrophils % (Manual) Band Neutrophils % Lymphocytes % (Manual) Atypical Lymphs % (Man) Monocytes % (Manual) Eosinophils % (Manual) Basophils % (Manual) Metamyelocytes % Myelocytes % Promyelocytes % Abs Neuts (Manual) Lymphocytes # (Manual) Atyp Lymphs # (Manual) Monocytes # (Manual) Eosinophils # (Manual) Basophils # (Manual) Metamyelocytes # Myelocytes # Promyelocytes # Nucleated RBCs Hypersegmented Neuts Smudge Cells Toxic Granulation Toxic Vacuolation Dohle Bodies Platelet Estimate Large Platelets Plt Morphology Comment RBC Morphology Polychromasia Hypochromasia Basophilic Stippling Microcytosis Macrocytosis Spherocytes Target Cells Tear Drop Cells Ovalocytes [place] Cells Acanthocytes (Spur) Schistocytes Smear Tech's Comments Smear Path Review Hold Purple Top PT INR APTT O2 Saturation ABG pH at Pt Temp ABG pCO2 at Pt Temp ABG pO2 at Pt Temp ABG HCO3 ABG Base Excess (Actual) VBG pH VBG pCO2 VBG pO2 VBG HCO3 VBG O2 Saturation VBG Base Excess Sodium 131 L Potassium 3.7 D Chloride 97 Carbon Dioxide 22 Anion Gap 16 BUN 8 L Creatinine 0.67 Estim Creat Clear Calc 195.7 Estimated GFR > 60 POC Glucose 100 Random Glucose 132 H Lactic Acid Lactic Acid F/U @ 2Hr Lactic Acid F/U @ 4Hr Calcium 9.9 Phosphorus Magnesium Iron TIBC % Saturation Unsat Iron Binding Total Bilirubin 12.1 H Direct Bilirubin AST 267 H ALT 47 H Alkaline Phosphatase 269 H Ammonia Troponin I High Sens 14.7 B-Natriuretic Peptide 185 H Total Protein 7.4 Albumin 3.2 L Triglycerides TSH Hold Yellow Top Urine Color Urine Appearance Urine pH Ur Specific [place] Urine Protein Urine Glucose (UA) Urine Ketones Urine Blood Urine Nitrite Ur Leukocyte Esterase Urine RBC Urine WBC Ur Squamous Epith Cells Urine Bacteria Hyaline Casts U Random Total Protein Ur Random Sodium Urine Creatinine Stool Occult Blood NEGATIVE Vancomycin Trough Random Vancomycin Ethyl Alcohol Blood Type Antibody Screen Crossmatch 03/22/23 03/22/23 03/22/23 22:52 22:53 22:55 WBC 8.5 RBC 2.80 L Hgb 8.2 L Hct 24.9 L MCV 88.9 MCH 29.3 MCHC 32.9 RDW 24.6 H Plt Count 180 MPV 11.3 Immature Gran % (Auto) 2.0 H Neut % (Auto) 81.2 H Lymph % (Auto) 8.3 L [place] % (Auto) 8.3 Eos % (Auto) 0.1 Baso % (Auto) 0.1 Lymph # (Auto) 0.7 L [place] # (Auto) 0.7 Eos # (Auto) 0.0 Baso # (Auto) 0.0 Abs Immat Gran (auto) 0.17 H Absolute Neuts (auto) 6.9 Absolute Nucleated RBC 0.000 Nucleated RBC % (auto) 0.0 Neutrophils % (Manual) Band Neutrophils % Lymphocytes % (Manual) Atypical Lymphs % (Man) Monocytes % (Manual) Eosinophils % (Manual) Basophils % (Manual) Metamyelocytes % Myelocytes % Promyelocytes % Abs Neuts (Manual) Lymphocytes # (Manual) Atyp Lymphs # (Manual) Monocytes # (Manual) Eosinophils # (Manual) Basophils # (Manual) Metamyelocytes # Myelocytes # Promyelocytes # Nucleated RBCs Hypersegmented Neuts Smudge Cells Toxic Granulation Toxic Vacuolation Dohle Bodies Platelet Estimate Large Platelets Plt Morphology Comment RBC Morphology Polychromasia Hypochromasia Basophilic Stippling Microcytosis Macrocytosis Spherocytes Target Cells Tear Drop Cells Ovalocytes Frank Cells Acanthocytes (Spur) Schistocytes Smear Tech's Comments Smear Path Review Hold Purple Top PT 17.2 H INR 1.4 H APTT O2 Saturation ABG pH at Pt Temp ABG pCO2 at Pt Temp ABG pO2 at Pt Temp ABG HCO3 ABG Base Excess (Actual) VBG pH 7.40 VBG pCO2 40 VBG pO2 157 VBG HCO3 25 VBG O2 Saturation 100.0 VBG Base Excess 0.9 Sodium 134 L Potassium 3.4 Chloride 99 Carbon Dioxide 24 Anion Gap 14 BUN 14 Creatinine 0.95 Estim Creat Clear Calc 138.0 Estimated GFR > 60 POC Glucose Random Glucose 122 H Lactic Acid 3.5 H* Lactic Acid F/U @ 2Hr Lactic Acid F/U @ 4Hr Calcium 9.7 Phosphorus 4.1 Magnesium 1.8 Iron TIBC % Saturation Unsat Iron Binding Total Bilirubin 13.0 H Direct Bilirubin AST 248 H ALT 45 H Alkaline Phosphatase 239 H Ammonia 95 H Troponin I High Sens 31.0 D B-Natriuretic Peptide 296 H Total Protein 6.9 Albumin 3.1 L Triglycerides TSH Hold Yellow Top Urine Color Urine Appearance Urine pH Ur Specific [place] Urine Protein Urine Glucose (UA) Urine Ketones Urine Blood Urine Nitrite Ur Leukocyte Esterase Urine RBC Urine WBC Ur Squamous Epith Cells Urine Bacteria Hyaline Casts U Random Total Protein Ur Random Sodium Urine Creatinine Stool Occult Blood Vancomycin Trough Random Vancomycin Ethyl Alcohol Blood Type Antibody Screen Crossmatch 03/23/23 03/23/23 03/23/23 01:33 04:47 04:53 WBC 8.8 RBC 2.67 L Hgb 7.9 L Hct 23.9 L MCV 89.5 MCH 29.6 MCHC 33.1 RDW 25.2 H Plt Count 164 MPV 11.2 Immature Gran % (Auto) 1.5 H Neut % (Auto) 69.0 Lymph % (Auto) 15.2 L [place] % (Auto) 13.8 H Eos % (Auto) 0.2 Baso % (Auto) 0.3 Lymph # (Auto) 1.3 [place] # (Auto) 1.2 Eos # (Auto) 0.0 Baso # (Auto) 0.0 Abs Immat Gran (auto) 0.13 H Absolute Neuts (auto) 6.1 Absolute Nucleated RBC 0.060 H Nucleated RBC % (auto) 0.7 H Neutrophils % (Manual) Band Neutrophils % Lymphocytes % (Manual) Atypical Lymphs % (Man) Monocytes % (Manual) Eosinophils % (Manual) Basophils % (Manual) Metamyelocytes % Myelocytes % Promyelocytes % Abs Neuts (Manual) Lymphocytes # (Manual) Atyp Lymphs # (Manual) Monocytes # (Manual) Eosinophils # (Manual) Basophils # (Manual) Metamyelocytes # Myelocytes # Promyelocytes # Nucleated RBCs Hypersegmented Neuts Smudge Cells Toxic Granulation Toxic Vacuolation Dohle Bodies Platelet Estimate Large Platelets Plt Morphology Comment RBC Morphology Polychromasia Hypochromasia Basophilic Stippling Microcytosis Macrocytosis Spherocytes Target Cells Tear Drop Cells Ovalocytes [place] Cells Acanthocytes (Spur) Schistocytes Smear Tech's Comments Smear Path Review Hold Purple Top PT 19.2 H INR 1.6 H APTT O2 Saturation ABG pH at Pt Temp ABG pCO2 at Pt Temp ABG pO2 at Pt Temp ABG HCO3 ABG Base Excess (Actual) VBG pH 7.50 H VBG pCO2 35 VBG pO2 37 VBG HCO3 28 H VBG O2 Saturation 54.0 VBG Base Excess 5.0 Sodium 132 L Potassium 3.5 Chloride 96 Carbon Dioxide 24 Anion Gap 16 BUN 17 H Creatinine 1.29 Estim Creat Clear Calc 101.6 Estimated GFR > 60 POC Glucose Random Glucose 108 Lactic Acid Lactic Acid F/U @ 2Hr 3.6 H* Lactic Acid F/U @ 4Hr 2.0 Calcium 9.3 Phosphorus 2.4 L Magnesium 1.6 Iron TIBC % Saturation Unsat Iron Binding Total Bilirubin 13.1 H Direct Bilirubin AST 233 H ALT 41 H Alkaline Phosphatase 219 H Ammonia 51 Troponin I High Sens B-Natriuretic Peptide Total Protein 6.8 Albumin 3.3 L Triglycerides TSH Hold Yellow Top Urine Color Urine Appearance Urine pH Ur Specific [place] Urine Protein Urine Glucose (UA) Urine Ketones Urine Blood Urine Nitrite Ur Leukocyte Esterase Urine RBC Urine WBC Ur Squamous Epith Cells Urine Bacteria Hyaline Casts U Random Total Protein Ur Random Sodium Urine Creatinine Stool Occult Blood Vancomycin Trough Random Vancomycin Ethyl Alcohol Blood Type Antibody Screen Crossmatch 03/23/23 03/23/23 03/23/23 09:25 10:55 13:31 WBC RBC Hgb Hct MCV MCH MCHC RDW Plt Count MPV Immature Gran % (Auto) Neut % (Auto) Lymph % (Auto) [place] % (Auto) Eos % (Auto) Baso % (Auto) Lymph # (Auto) [place] # (Auto) Eos # (Auto) Baso # (Auto) Abs Immat Gran (auto) Absolute Neuts (auto) Absolute Nucleated RBC Nucleated RBC % (auto) Neutrophils % (Manual) Band Neutrophils % Lymphocytes % (Manual) Atypical Lymphs % (Man) Monocytes % (Manual) Eosinophils % (Manual) Basophils % (Manual) Metamyelocytes % Myelocytes % Promyelocytes % Abs Neuts (Manual) Lymphocytes # (Manual) Atyp Lymphs # (Manual) Monocytes # (Manual) Eosinophils # (Manual) Basophils # (Manual) Metamyelocytes # Myelocytes # Promyelocytes # Nucleated RBCs Hypersegmented Neuts Smudge Cells Toxic Granulation Toxic Vacuolation Dohle Bodies Platelet Estimate Large Platelets Plt Morphology Comment RBC Morphology Polychromasia Hypochromasia Basophilic Stippling Microcytosis Macrocytosis Spherocytes Target Cells Tear Drop Cells Ovalocytes [place] Cells Acanthocytes (Spur) Schistocytes Smear Tech's Comments Smear Path Review Hold Purple Top PT INR APTT O2 Saturation ABG pH at Pt Temp ABG pCO2 at Pt Temp ABG pO2 at Pt Temp ABG HCO3 ABG Base Excess (Actual) VBG pH VBG pCO2 VBG pO2 VBG HCO3 VBG O2 Saturation VBG Base Excess Sodium Potassium Chloride Carbon Dioxide Anion Gap BUN Creatinine Estim Creat Clear Calc Estimated GFR POC Glucose Random Glucose Lactic Acid 2.1 H* 2.1 H* Lactic Acid F/U @ 2Hr 1.5 Lactic Acid F/U @ 4Hr Calcium Phosphorus Magnesium Iron TIBC % Saturation Unsat Iron Binding Total Bilirubin Direct Bilirubin AST ALT Alkaline Phosphatase Ammonia Troponin I High Sens B-Natriuretic Peptide Total Protein Albumin Triglycerides TSH Hold Yellow Top Urine Color Urine Appearance Urine pH Ur Specific [place] Urine Protein Urine Glucose (UA) Urine Ketones Urine Blood Urine Nitrite Ur Leukocyte Esterase Urine RBC Urine WBC Ur Squamous Epith Cells Urine Bacteria Hyaline Casts U Random Total Protein Ur Random Sodium Urine Creatinine Stool Occult Blood Vancomycin Trough Random Vancomycin Ethyl Alcohol Blood Type Antibody Screen Crossmatch 03/24/23 03/24/23 03/24/23 05:37 05:38 05:41 WBC 10.2 RBC 2.73 L Hgb 8.0 L Hct 24.7 L MCV 90.5 MCH 29.3 MCHC 32.4 RDW 25.7 H Plt Count 168 MPV 12.2 Immature Gran % (Auto) Cancelled Neut % (Auto) Cancelled Lymph % (Auto) Cancelled [place] % (Auto) Cancelled Eos % (Auto) Cancelled Baso % (Auto) Cancelled Lymph # (Auto) Cancelled [place] # (Auto) Cancelled Eos # (Auto) Cancelled Baso # (Auto) Cancelled Abs Immat Gran (auto) Cancelled Absolute Neuts (auto) Cancelled Absolute Nucleated RBC 0.090 H Nucleated RBC % (auto) 0.9 H Neutrophils % (Manual) 54 Band Neutrophils % 26 H Lymphocytes % (Manual) 11 L Atypical Lymphs % (Man) 1 Monocytes % (Manual) 1 L Eosinophils % (Manual) 4 Basophils % (Manual) 2 Metamyelocytes % Myelocytes % 1 Promyelocytes % Abs Neuts (Manual) 8.2 Lymphocytes # (Manual) 1.1 L Atyp Lymphs # (Manual) 0.1 Monocytes # (Manual) 0.1 Eosinophils # (Manual) 0.4 Basophils # (Manual) 0.2 Metamyelocytes # Myelocytes # 0.1 Promyelocytes # Nucleated RBCs 2 H Hypersegmented Neuts Smudge Cells Toxic Granulation Toxic Vacuolation PRESENT Dohle Bodies Platelet Estimate NORMAL Large Platelets Plt Morphology Comment NORMAL RBC Morphology NOTED Polychromasia Hypochromasia 1+ (5-14) Basophilic Stippling Microcytosis Macrocytosis 2+ (15-30) Spherocytes 1+ (0-2) Target Cells 1+ (5-14) Tear Drop Cells Ovalocytes Frank Cells 2+ (3-5) Acanthocytes (Spur) 1+ (0-2) Schistocytes 1+ (0-2) Smear Tech's Comments Smear Path Review Hold Purple Top PT INR APTT O2 Saturation ABG pH at Pt Temp ABG pCO2 at Pt Temp ABG pO2 at Pt Temp ABG HCO3 ABG Base Excess (Actual) VBG pH 7.54 H VBG pCO2 25 VBG pO2 56 VBG HCO3 22 VBG O2 Saturation 88.0 VBG Base Excess 1.0 Sodium 134 L Potassium 2.9 L Chloride 99 Carbon Dioxide 21 L Anion Gap 17 BUN 20 H Creatinine 1.56 H Estim Creat Clear Calc 84.0 Estimated GFR 50 POC Glucose Random Glucose 129 H Lactic Acid Lactic Acid F/U @ 2Hr Lactic Acid F/U @ 4Hr Calcium 8.9 Phosphorus 2.3 L Magnesium 1.6 Iron TIBC % Saturation Unsat Iron Binding Total Bilirubin 11.8 H Direct Bilirubin AST 151 H ALT 35 Alkaline Phosphatase 158 H Ammonia Troponin I High Sens B-Natriuretic Peptide Total Protein 6.9 Albumin 3.6 Triglycerides TSH Hold Yellow Top Urine Color Urine Appearance Urine pH Ur Specific [place] Urine Protein Urine Glucose (UA) Urine Ketones Urine Blood Urine Nitrite Ur Leukocyte Esterase Urine RBC Urine WBC Ur Squamous Epith Cells Urine Bacteria Hyaline Casts U Random Total Protein Ur Random Sodium Urine Creatinine Stool Occult Blood Vancomycin Trough Random Vancomycin Ethyl Alcohol Blood Type Antibody Screen Crossmatch 03/24/23 03/25/23 03/25/23 11:03 04:45 18:37 WBC 16.7 H RBC 2.92 L Hgb 8.7 L Hct 26.5 L MCV 90.8 MCH 29.8 MCHC 32.8 RDW 26.5 H Plt Count 167 MPV 11.1 Immature Gran % (Auto) Cancelled Neut % (Auto) Cancelled Lymph % (Auto) Cancelled [place] % (Auto) Cancelled Eos % (Auto) Cancelled Baso % (Auto) Cancelled Lymph # (Auto) Cancelled [place] # (Auto) Cancelled Eos # (Auto) Cancelled Baso # (Auto) Cancelled Abs Immat Gran (auto) Cancelled Absolute Neuts (auto) Cancelled Absolute Nucleated RBC 0.070 H Nucleated RBC % (auto) 0.4 H Neutrophils % (Manual) 59 Band Neutrophils % 16 H Lymphocytes % (Manual) 12 L Atypical Lymphs % (Man) Monocytes % (Manual) 7 Eosinophils % (Manual) Basophils % (Manual) 2 Metamyelocytes % 1 Myelocytes % Promyelocytes % 3 Abs Neuts (Manual) 12.5 H Lymphocytes # (Manual) 2.0 Atyp Lymphs # (Manual) Monocytes # (Manual) 1.2 Eosinophils # (Manual) Basophils # (Manual) 0.3 H Metamyelocytes # 0.2 Myelocytes # Promyelocytes # 0.5 Nucleated RBCs Hypersegmented Neuts Smudge Cells Toxic Granulation Toxic Vacuolation Dohle Bodies Platelet Estimate NORMAL Large Platelets Plt Morphology Comment NORMAL RBC Morphology NOTED Polychromasia Hypochromasia Basophilic Stippling Microcytosis Macrocytosis Spherocytes Target Cells Tear Drop Cells 3+ (>5) Ovalocytes [place] Cells Acanthocytes (Spur) Schistocytes Smear Tech's Comments Smear Path Review Hold Purple Top PT INR APTT O2 Saturation 90.0 ABG pH at Pt Temp 7.38 ABG pCO2 at Pt Temp 38 ABG pO2 at Pt Temp 68 L ABG HCO3 23 ABG Base Excess (Actual) -1.6 VBG pH 7.49 H VBG pCO2 28 VBG pO2 71 VBG HCO3 21 L VBG O2 Saturation 94.0 VBG Base Excess -0.6 Sodium 136 Potassium 3.0 L Chloride 101 Carbon Dioxide 20 L Anion Gap 18 BUN 25 H Creatinine 1.39 Estim Creat Clear Calc 94.3 Estimated GFR 57 POC Glucose Random Glucose 114 Lactic Acid Lactic Acid F/U @ 2Hr Lactic Acid F/U @ 4Hr Calcium 8.6 Phosphorus 2.6 L Magnesium 1.7 Iron TIBC % Saturation Unsat Iron Binding Total Bilirubin 13.3 H Direct Bilirubin AST 124 H ALT 32 Alkaline Phosphatase 162 H Ammonia 66 H Troponin I High Sens B-Natriuretic Peptide Total Protein 7.1 Albumin 3.4 L Triglycerides TSH Hold Yellow Top Urine Color Urine Appearance Urine pH Ur Specific [place] Urine Protein Urine Glucose (UA) Urine Ketones Urine Blood Urine Nitrite Ur Leukocyte Esterase Urine RBC Urine WBC Ur Squamous Epith Cells Urine Bacteria Hyaline Casts U Random Total Protein Ur Random Sodium Urine Creatinine Stool Occult Blood Vancomycin Trough 16.7 Random Vancomycin Ethyl Alcohol Blood Type Antibody Screen Crossmatch 03/25/23 03/26/23 03/26/23 19:18 05:22 05:25 WBC 11.3 H RBC 2.65 L Hgb 7.7 L Hct 24.7 L MCV 93.2 MCH 29.1 MCHC 31.2 RDW 27.1 H Plt Count 141 L MPV 11.4 Immature Gran % (Auto) Cancelled Neut % (Auto) Cancelled Lymph % (Auto) Cancelled [place] % (Auto) Cancelled Eos % (Auto) Cancelled Baso % (Auto) Cancelled Lymph # (Auto) Cancelled [place] # (Auto) Cancelled Eos # (Auto) Cancelled Baso # (Auto) Cancelled Abs Immat Gran (auto) Cancelled Absolute Neuts (auto) Cancelled Absolute Nucleated RBC 0.000 Nucleated RBC % (auto) 0.0 Neutrophils % (Manual) 56 Band Neutrophils % 16 H Lymphocytes % (Manual) 19 L Atypical Lymphs % (Man) Monocytes % (Manual) 6 Eosinophils % (Manual) 1 Basophils % (Manual) Metamyelocytes % 2 Myelocytes % Promyelocytes % Abs Neuts (Manual) 8.1 Lymphocytes # (Manual) 2.1 Atyp Lymphs # (Manual) Monocytes # (Manual) 0.7 Eosinophils # (Manual) 0.1 Basophils # (Manual) Metamyelocytes # 0.2 Myelocytes # Promyelocytes # Nucleated RBCs Hypersegmented Neuts Smudge Cells Toxic Granulation PRESENT Toxic Vacuolation Dohle Bodies PRESENT Platelet Estimate SLIGHTLY DECREASED Large Platelets Plt Morphology Comment NORMAL RBC Morphology NOTED Polychromasia 1+ (0-2) Hypochromasia 1+ (5-14) Basophilic Stippling Microcytosis Macrocytosis 1+ (5-14) Spherocytes Target Cells 1+ (5-14) Tear Drop Cells 1+ (0-2) Ovalocytes Frank Cells 1+ (0-2) Acanthocytes (Spur) Schistocytes Smear Tech's Comments Smear Path Review Hold Purple Top PT INR APTT O2 Saturation ABG pH at Pt Temp ABG pCO2 at Pt Temp ABG pO2 at Pt Temp ABG HCO3 ABG Base Excess (Actual) VBG pH VBG pCO2 VBG pO2 VBG HCO3 VBG O2 Saturation VBG Base Excess Sodium 138 138 Potassium 3.4 3.1 L Chloride 104 105 Carbon Dioxide 23 22 Anion Gap 14 14 BUN 22 H 22 H Creatinine 1.23 1.45 H Estim Creat Clear Calc 106.6 90.4 Estimated GFR > 60 54 POC Glucose Random Glucose 130 H 115 Lactic Acid 1.0 Lactic Acid F/U @ 2Hr Lactic Acid F/U @ 4Hr Calcium 8.6 8.7 Phosphorus 1.9 L Magnesium 2.2 Iron TIBC % Saturation Unsat Iron Binding Total Bilirubin 13.1 H Direct Bilirubin AST 106 H ALT 24 Alkaline Phosphatase 120 H Ammonia 54 Troponin I High Sens B-Natriuretic Peptide Total Protein 7.1 Albumin 3.9 Triglycerides TSH Hold Yellow Top Urine Color Urine Appearance Urine pH Ur Specific [place] Urine Protein Urine Glucose (UA) Urine Ketones Urine Blood Urine Nitrite Ur Leukocyte Esterase Urine RBC Urine WBC Ur Squamous Epith Cells Urine Bacteria Hyaline Casts U Random Total Protein Ur Random Sodium Urine Creatinine Stool Occult Blood Vancomycin Trough Random Vancomycin Ethyl Alcohol Blood Type Antibody Screen Crossmatch 03/26/23 03/26/23 03/27/23 05:26 19:39 04:17 WBC 14.2 H RBC 2.77 L Hgb 8.1 L Hct 25.4 L MCV 91.7 MCH 29.2 MCHC 31.9 RDW 27.9 H Plt Count 146 L MPV 11.9 Immature Gran % (Auto) Cancelled Neut % (Auto) Cancelled Lymph % (Auto) Cancelled [place] % (Auto) Cancelled Eos % (Auto) Cancelled Baso % (Auto) Cancelled Lymph # (Auto) Cancelled [place] # (Auto) Cancelled Eos # (Auto) Cancelled Baso # (Auto) Cancelled Abs Immat Gran (auto) Cancelled Absolute Neuts (auto) Cancelled Absolute Nucleated RBC 0.030 H Nucleated RBC % (auto) 0.2 Neutrophils % (Manual) 61 Band Neutrophils % 17 H Lymphocytes % (Manual) 8 L Atypical Lymphs % (Man) Monocytes % (Manual) 6 Eosinophils % (Manual) 1 Basophils % (Manual) 2 Metamyelocytes % 3 Myelocytes % 1 Promyelocytes % 1 Abs Neuts (Manual) 11.1 H Lymphocytes # (Manual) 1.1 L Atyp Lymphs # (Manual) Monocytes # (Manual) 0.9 Eosinophils # (Manual) 0.1 Basophils # (Manual) 0.3 H Metamyelocytes # 0.4 Myelocytes # 0.1 Promyelocytes # 0.1 Nucleated RBCs 1 H Hypersegmented Neuts Smudge Cells Toxic Granulation PRESENT Toxic Vacuolation PRESENT Dohle Bodies Platelet Estimate SLIGHTLY DECREASED Large Platelets PRESENT Plt Morphology Comment NOTED RBC Morphology NOTED Polychromasia 1+ (0-2) Hypochromasia 1+ (5-14) Basophilic Stippling Microcytosis Macrocytosis Spherocytes Target Cells 1+ (5-14) Tear Drop Cells Ovalocytes 1+ (5-14) [place] Cells Acanthocytes (Spur) Schistocytes 1+ (0-2) Smear Tech's Comments Smear Path Review Hold Purple Top PT INR APTT O2 Saturation ABG pH at Pt Temp ABG pCO2 at Pt Temp ABG pO2 at Pt Temp ABG HCO3 ABG Base Excess (Actual) VBG pH 7.47 H VBG pCO2 30 VBG pO2 29 VBG HCO3 22 VBG O2 Saturation 41.0 VBG Base Excess -0.2 Sodium 141 141 Potassium 3.7 3.0 L Chloride 108 110 H Carbon Dioxide 22 21 L Anion Gap 15 13 BUN 19 H 15 Creatinine 1.11 0.89 Estim Creat Clear Calc 118.6 147.9 Estimated GFR > 60 > 60 POC Glucose Random Glucose 121 H 124 H Lactic Acid Lactic Acid F/U @ 2Hr Lactic Acid F/U @ 4Hr Calcium 8.8 8.7 Phosphorus 2.0 L 1.6 L Magnesium 2.2 2.4 Iron TIBC % Saturation Unsat Iron Binding Total Bilirubin 12.3 H Direct Bilirubin AST 102 H ALT 20 Alkaline Phosphatase 111 Ammonia 66 H Troponin I High Sens B-Natriuretic Peptide Total Protein 6.9 Albumin 3.5 Triglycerides TSH Hold Yellow Top Urine Color Urine Appearance Urine pH Ur Specific [place] Urine Protein Urine Glucose (UA) Urine Ketones Urine Blood Urine Nitrite Ur Leukocyte Esterase Urine RBC Urine WBC Ur Squamous Epith Cells Urine Bacteria Hyaline Casts U Random Total Protein Ur Random Sodium Urine Creatinine Stool Occult Blood Vancomycin Trough Random Vancomycin Ethyl Alcohol Blood Type Antibody Screen Crossmatch 03/27/23 03/27/23 03/28/23 04:24 10:46 04:59 WBC 15.7 H RBC 2.64 L Hgb 7.7 L Hct 24.7 L MCV 93.6 MCH 29.2 MCHC 31.2 RDW 28.7 H Plt Count 162 MPV 10.7 Immature Gran % (Auto) Cancelled Neut % (Auto) Cancelled Lymph % (Auto) Cancelled [place] % (Auto) Cancelled Eos % (Auto) Cancelled Baso % (Auto) Cancelled Lymph # (Auto) Cancelled [place] # (Auto) Cancelled Eos # (Auto) Cancelled Baso # (Auto) Cancelled Abs Immat Gran (auto) Cancelled Absolute Neuts (auto) Cancelled Absolute Nucleated RBC 0.060 H Nucleated RBC % (auto) 0.4 H Neutrophils % (Manual) 62 Band Neutrophils % 7 H Lymphocytes % (Manual) 12 L Atypical Lymphs % (Man) Monocytes % (Manual) 8 Eosinophils % (Manual) 2 Basophils % (Manual) 1 Metamyelocytes % 4 Myelocytes % 3 Promyelocytes % 1 Abs Neuts (Manual) 10.8 H Lymphocytes # (Manual) 1.9 Atyp Lymphs # (Manual) Monocytes # (Manual) 1.3 H Eosinophils # (Manual) 0.3 Basophils # (Manual) 0.2 Metamyelocytes # 0.6 Myelocytes # 0.5 Promyelocytes # 0.2 Nucleated RBCs Hypersegmented Neuts Smudge Cells Toxic Granulation PRESENT Toxic Vacuolation Dohle Bodies PRESENT Platelet Estimate NORMAL Large Platelets Plt Morphology Comment NORMAL RBC Morphology NOTED Polychromasia 1+ (0-2) Hypochromasia 1+ (5-14) Basophilic Stippling Microcytosis Macrocytosis 1+ (5-14) Spherocytes Target Cells 1+ (5-14) Tear Drop Cells Ovalocytes 1+ (5-14) Frank Cells 1+ (0-2) Acanthocytes (Spur) Schistocytes 1+ (0-2) Smear Tech's Comments Smear Path Review Hold Purple Top PT 18.1 H INR 1.5 H APTT O2 Saturation ABG pH at Pt Temp ABG pCO2 at Pt Temp ABG pO2 at Pt Temp ABG HCO3 ABG Base Excess (Actual) VBG pH 7.58 H VBG pCO2 23 VBG pO2 66 VBG HCO3 22 VBG O2 Saturation 95.0 VBG Base Excess 1.3 Sodium 144 Potassium 3.2 L Chloride 117 H Carbon Dioxide 17 L Anion Gap 13 BUN 12 Creatinine 0.78 Estim Creat Clear Calc 168.8 Estimated GFR > 60 POC Glucose Random Glucose 140 H Lactic Acid Lactic Acid F/U @ 2Hr Lactic Acid F/U @ 4Hr Calcium 8.8 Phosphorus 2.5 L Magnesium 2.4 Iron TIBC % Saturation Unsat Iron Binding Total Bilirubin 13.3 H Direct Bilirubin AST 99 H ALT 21 Alkaline Phosphatase 103 Ammonia Troponin I High Sens B-Natriuretic Peptide Total Protein 6.8 Albumin 3.2 L Triglycerides TSH Hold Yellow Top Urine Color Urine Appearance Urine pH Ur Specific [place] Urine Protein Urine Glucose (UA) Urine Ketones Urine Blood Urine Nitrite Ur Leukocyte Esterase Urine RBC Urine WBC Ur Squamous Epith Cells Urine Bacteria Hyaline Casts U Random Total Protein Ur Random Sodium Urine Creatinine Stool Occult Blood Vancomycin Trough Random Vancomycin 8.2 L Ethyl Alcohol Blood Type Antibody Screen Crossmatch 03/28/23 03/28/23 03/28/23 05:03 10:49 14:28 WBC RBC Hgb Hct MCV MCH MCHC RDW Plt Count MPV Immature Gran % (Auto) Neut % (Auto) Lymph % (Auto) [place] % (Auto) Eos % (Auto) Baso % (Auto) Lymph # (Auto) [place] # (Auto) Eos # (Auto) Baso # (Auto) Abs Immat Gran (auto) Absolute Neuts (auto) Absolute Nucleated RBC Nucleated RBC % (auto) Neutrophils % (Manual) Band Neutrophils % Lymphocytes % (Manual) Atypical Lymphs % (Man) Monocytes % (Manual) Eosinophils % (Manual) Basophils % (Manual) Metamyelocytes % Myelocytes % Promyelocytes % Abs Neuts (Manual) Lymphocytes # (Manual) Atyp Lymphs # (Manual) Monocytes # (Manual) Eosinophils # (Manual) Basophils # (Manual) Metamyelocytes # Myelocytes # Promyelocytes # Nucleated RBCs Hypersegmented Neuts Smudge Cells Toxic Granulation Toxic Vacuolation Dohle Bodies Platelet Estimate Large Platelets Plt Morphology Comment RBC Morphology Polychromasia Hypochromasia Basophilic Stippling Microcytosis Macrocytosis Spherocytes Target Cells Tear Drop Cells Ovalocytes [place] Cells Acanthocytes (Spur) Schistocytes Smear Tech's Comments Smear Path Review Hold Purple Top PT INR APTT O2 Saturation ABG pH at Pt Temp ABG pCO2 at Pt Temp ABG pO2 at Pt Temp ABG HCO3 ABG Base Excess (Actual) VBG pH 7.47 H 7.20 L* VBG pCO2 23 51 VBG pO2 89 90 VBG HCO3 17 L 20 L VBG O2 Saturation 97.0 94.0 VBG Base Excess -4.9 -7.4 Sodium Potassium Chloride Carbon Dioxide Anion Gap BUN Creatinine Estim Creat Clear Calc Estimated GFR POC Glucose Random Glucose Lactic Acid Lactic Acid F/U @ 2Hr Lactic Acid F/U @ 4Hr Calcium Phosphorus Magnesium Iron TIBC % Saturation Unsat Iron Binding Total Bilirubin Direct Bilirubin AST ALT Alkaline Phosphatase Ammonia Troponin I High Sens B-Natriuretic Peptide Total Protein Albumin Triglycerides TSH Hold Yellow Top Urine Color Urine Appearance Urine pH Ur Specific [place] Urine Protein Urine Glucose (UA) Urine Ketones Urine Blood Urine Nitrite Ur Leukocyte Esterase Urine RBC Urine WBC Ur Squamous Epith Cells Urine Bacteria Hyaline Casts U Random Total Protein Ur Random Sodium Urine Creatinine Stool Occult Blood Vancomycin Trough Random Vancomycin 9.6 L Ethyl Alcohol Blood Type Antibody Screen Crossmatch 03/28/23 03/28/23 03/29/23 14:53 18:55 05:17 WBC 26.4 H RBC 2.62 L Hgb 7.9 L Hct 25.8 L MCV 98.5 H MCH 30.2 MCHC 30.6 L RDW 28.3 H Plt Count 232 D MPV 11.2 Immature Gran % (Auto) Cancelled Neut % (Auto) Cancelled Lymph % (Auto) Cancelled [place] % (Auto) Cancelled Eos % (Auto) Cancelled Baso % (Auto) Cancelled Lymph # (Auto) Cancelled [place] # (Auto) Cancelled Eos # (Auto) Cancelled Baso # (Auto) Cancelled Abs Immat Gran (auto) Cancelled Absolute Neuts (auto) Cancelled Absolute Nucleated RBC 0.140 H Nucleated RBC % (auto) 0.5 H Neutrophils % (Manual) 49 Band Neutrophils % 25 H Lymphocytes % (Manual) 9 L Atypical Lymphs % (Man) Monocytes % (Manual) 10 Eosinophils % (Manual) 2 Basophils % (Manual) Metamyelocytes % 3 Myelocytes % 2 Promyelocytes % Abs Neuts (Manual) 19.5 H Lymphocytes # (Manual) 2.4 Atyp Lymphs # (Manual) Monocytes # (Manual) 2.6 H Eosinophils # (Manual) 0.5 H Basophils # (Manual) Metamyelocytes # 0.8 Myelocytes # 0.5 Promyelocytes # Nucleated RBCs Hypersegmented Neuts Smudge Cells Toxic Granulation PRESENT Toxic Vacuolation PRESENT Dohle Bodies Platelet Estimate NORMAL Large Platelets PRESENT Plt Morphology Comment NOTED RBC Morphology NOTED Polychromasia Hypochromasia 1+ (5-14) Basophilic Stippling Microcytosis Macrocytosis 1+ (5-14) Spherocytes Target Cells 1+ (5-14) Tear Drop Cells Ovalocytes 1+ (5-14) [place] Cells Acanthocytes (Spur) 1+ (0-2) Schistocytes 1+ (0-2) Smear Tech's Comments Smear Path Review Hold Purple Top SEE NOTE PT INR APTT O2 Saturation ABG pH at Pt Temp ABG pCO2 at Pt Temp ABG pO2 at Pt Temp ABG HCO3 ABG Base Excess (Actual) VBG pH 7.22 L VBG pCO2 50 VBG pO2 84 VBG HCO3 21 L VBG O2 Saturation 95.0 VBG Base Excess -6.1 Sodium 144 146 H Potassium 3.9 D 3.6 Chloride 117 H 117 H Carbon Dioxide 20 L 19 L Anion Gap 11 L 14 BUN 14 19 H Creatinine 0.98 1.46 H Estim Creat Clear Calc 137.9 92.4 Estimated GFR > 60 54 POC Glucose Random Glucose 166 H 141 H Lactic Acid 0.6 Lactic Acid F/U @ 2Hr Lactic Acid F/U @ 4Hr Calcium 8.9 8.9 Phosphorus 3.0 Magnesium 2.2 Iron TIBC % Saturation Unsat Iron Binding Total Bilirubin 12.8 H Direct Bilirubin AST 124 H ALT 31 Alkaline Phosphatase 106 Ammonia Troponin I High Sens B-Natriuretic Peptide Total Protein 7.1 Albumin 3.2 L Triglycerides 261 H TSH Hold Yellow Top See Note Urine Color Urine Appearance Urine pH Ur Specific [place] Urine Protein Urine Glucose (UA) Urine Ketones Urine Blood Urine Nitrite Ur Leukocyte Esterase Urine RBC Urine WBC Ur Squamous Epith Cells Urine Bacteria Hyaline Casts U Random Total Protein Ur Random Sodium Urine Creatinine Stool Occult Blood Vancomycin Trough Random Vancomycin Ethyl Alcohol Blood Type Antibody Screen Crossmatch 03/29/23 03/29/23 03/29/23 05:18 10:05 20:10 WBC RBC Hgb Hct MCV MCH MCHC RDW Plt Count MPV Immature Gran % (Auto) Neut % (Auto) Lymph % (Auto) [place] % (Auto) Eos % (Auto) Baso % (Auto) Lymph # (Auto) [place] # (Auto) Eos # (Auto) Baso # (Auto) Abs Immat Gran (auto) Absolute Neuts (auto) Absolute Nucleated RBC Nucleated RBC % (auto) Neutrophils % (Manual) Band Neutrophils % Lymphocytes % (Manual) Atypical Lymphs % (Man) Monocytes % (Manual) Eosinophils % (Manual) Basophils % (Manual) Metamyelocytes % Myelocytes % Promyelocytes % Abs Neuts (Manual) Lymphocytes # (Manual) Atyp Lymphs # (Manual) Monocytes # (Manual) Eosinophils # (Manual) Basophils # (Manual) Metamyelocytes # Myelocytes # Promyelocytes # Nucleated RBCs Hypersegmented Neuts Smudge Cells Toxic Granulation Toxic Vacuolation Dohle Bodies Platelet Estimate Large Platelets Plt Morphology Comment RBC Morphology Polychromasia Hypochromasia Basophilic Stippling Microcytosis Macrocytosis Spherocytes Target Cells Tear Drop Cells Ovalocytes Frank Cells Acanthocytes (Spur) Schistocytes Smear Tech's Comments Smear Path Review Hold Purple Top PT INR APTT O2 Saturation ABG pH at Pt Temp ABG pCO2 at Pt Temp ABG pO2 at Pt Temp ABG HCO3 ABG Base Excess (Actual) VBG pH 7.40 VBG pCO2 30 VBG pO2 85 VBG HCO3 18 L VBG O2 Saturation 98.0 VBG Base Excess -5.0 Sodium 143 Potassium 3.5 Chloride 116 H Carbon Dioxide 19 L Anion Gap 12 BUN 25 H Creatinine 1.89 H Estim Creat Clear Calc 71.4 Estimated GFR 40 POC Glucose Random Glucose 143 H Lactic Acid Lactic Acid F/U @ 2Hr Lactic Acid F/U @ 4Hr Calcium 9.2 Phosphorus 2.8 Magnesium 2.5 Iron TIBC % Saturation Unsat Iron Binding Total Bilirubin Direct Bilirubin AST ALT Alkaline Phosphatase Ammonia Troponin I High Sens B-Natriuretic Peptide Total Protein Albumin Triglycerides TSH Hold Yellow Top Urine Color Urine Appearance Urine pH Ur Specific [place] Urine Protein Urine Glucose (UA) Urine Ketones Urine Blood Urine Nitrite Ur Leukocyte Esterase Urine RBC Urine WBC Ur Squamous Epith Cells Urine Bacteria Hyaline Casts U Random Total Protein Ur Random Sodium Urine Creatinine Stool Occult Blood Vancomycin Trough Random Vancomycin 18.5 11.4 L Ethyl Alcohol Blood Type Antibody Screen Crossmatch 03/30/23 03/30/23 03/30/23 05:11 08:03 19:13 WBC 20.4 H RBC 2.53 L Hgb 7.5 L Hct 24.5 L MCV 96.8 MCH 29.6 MCHC 30.6 L RDW 28.9 H Plt Count 230 MPV 11.0 Immature Gran % (Auto) Cancelled Neut % (Auto) Cancelled Lymph % (Auto) Cancelled [place] % (Auto) Cancelled Eos % (Auto) Cancelled Baso % (Auto) Cancelled Lymph # (Auto) Cancelled [place] # (Auto) Cancelled Eos # (Auto) Cancelled Baso # (Auto) Cancelled Abs Immat Gran (auto) Cancelled Absolute Neuts (auto) Cancelled Absolute Nucleated RBC 0.030 H Nucleated RBC % (auto) 0.1 Neutrophils % (Manual) 65 Band Neutrophils % 18 H Lymphocytes % (Manual) 6 L Atypical Lymphs % (Man) Monocytes % (Manual) 3 Eosinophils % (Manual) 3 Basophils % (Manual) 1 Metamyelocytes % 2 Myelocytes % 2 Promyelocytes % Abs Neuts (Manual) 16.9 H Lymphocytes # (Manual) 1.2 Atyp Lymphs # (Manual) Monocytes # (Manual) 0.6 Eosinophils # (Manual) 0.6 H Basophils # (Manual) 0.2 Metamyelocytes # 0.4 Myelocytes # 0.4 Promyelocytes # Nucleated RBCs Hypersegmented Neuts Smudge Cells PRESENT Toxic Granulation PRESENT Toxic Vacuolation PRESENT Dohle Bodies PRESENT Platelet Estimate NORMAL Large Platelets PRESENT Plt Morphology Comment NOTED RBC Morphology NOTED Polychromasia 1+ (0-2) Hypochromasia 1+ (5-14) Basophilic Stippling 1+ (0-2) Microcytosis 1+ (5-14) Macrocytosis 1+ (5-14) Spherocytes 1+ (0-2) Target Cells 2+ (15-30) Tear Drop Cells 1+ (0-2) Ovalocytes 1+ (5-14) Frank Cells 1+ (0-2) Acanthocytes (Spur) Schistocytes 1+ (0-2) Smear Tech's Comments Smear Path Review Hold Purple Top PT INR APTT O2 Saturation ABG pH at Pt Temp ABG pCO2 at Pt Temp ABG pO2 at Pt Temp ABG HCO3 ABG Base Excess (Actual) VBG pH 7.44 H VBG pCO2 25 VBG pO2 57 VBG HCO3 17 L VBG O2 Saturation 89.0 VBG Base Excess -4.9 Sodium 141 141 Potassium 3.6 4.3 Chloride 113 H 114 H Carbon Dioxide 18 L 17 L Anion Gap 14 14 BUN 27 H 31 H Creatinine 1.84 H 2.26 H Estim Creat Clear Calc 73.9 60.2 Estimated GFR 41 33 POC Glucose Random Glucose 143 H 138 H Lactic Acid Lactic Acid F/U @ 2Hr Lactic Acid F/U @ 4Hr Calcium 9.6 9.4 Phosphorus 2.5 L 4.4 Magnesium 2.7 H 2.6 Iron TIBC % Saturation Unsat Iron Binding Total Bilirubin 11.8 H Direct Bilirubin AST 121 H ALT 31 Alkaline Phosphatase 89 Ammonia Troponin I High Sens B-Natriuretic Peptide Total Protein 7.4 Albumin 3.8 3.7 Triglycerides 254 H TSH Hold Yellow Top Urine Color Urine Appearance Urine pH Ur Specific [place] Urine Protein Urine Glucose (UA) Urine Ketones Urine Blood Urine Nitrite Ur Leukocyte Esterase Urine RBC Urine WBC Ur Squamous Epith Cells Urine Bacteria Hyaline Casts U Random Total Protein Ur Random Sodium Urine Creatinine Stool Occult Blood Vancomycin Trough Random Vancomycin 12.0 L Ethyl Alcohol Blood Type Antibody Screen Crossmatch 03/31/23 03/31/23 03/31/23 05:16 08:05 19:41 WBC 16.1 H 22.2 H RBC 2.44 L 2.41 L Hgb 7.3 L 7.2 L Hct 23.8 L 23.5 L MCV 97.5 97.5 MCH 29.9 29.9 MCHC 30.7 L 30.6 L RDW 29.4 H 28.9 H Plt Count 200 222 MPV 11.6 11.6 Immature Gran % (Auto) Cancelled Cancelled Neut % (Auto) Cancelled Cancelled Lymph % (Auto) Cancelled Cancelled [place] % (Auto) Cancelled Cancelled Eos % (Auto) Cancelled Cancelled Baso % (Auto) Cancelled Cancelled Lymph # (Auto) Cancelled Cancelled [place] # (Auto) Cancelled Cancelled Eos # (Auto) Cancelled Cancelled Baso # (Auto) Cancelled Cancelled Abs Immat Gran (auto) Cancelled Cancelled Absolute Neuts (auto) Cancelled Cancelled Absolute Nucleated RBC 0.020 H 0.040 H Nucleated RBC % (auto) 0.1 0.2 Neutrophils % (Manual) 79 H 81 H Band Neutrophils % 3 4 Lymphocytes % (Manual) 10 L 5 L Atypical Lymphs % (Man) Monocytes % (Manual) 1 L 3 Eosinophils % (Manual) 2 5 H Basophils % (Manual) 3 H 2 Metamyelocytes % 2 Myelocytes % Promyelocytes % Abs Neuts (Manual) 13.2 H 18.9 H Lymphocytes # (Manual) 1.6 1.1 L Atyp Lymphs # (Manual) Monocytes # (Manual) 0.2 0.7 Eosinophils # (Manual) 0.3 1.1 H Basophils # (Manual) 0.5 H 0.4 H Metamyelocytes # 0.3 Myelocytes # Promyelocytes # Nucleated RBCs Hypersegmented Neuts Smudge Cells Toxic Granulation PRESENT Toxic Vacuolation PRESENT Dohle Bodies PRESENT Platelet Estimate NORMAL NORMAL Large Platelets PRESENT Plt Morphology Comment NORMAL NORMAL RBC Morphology NOTED NOTED Polychromasia 1+ (0-2) 1+ (0-2) Hypochromasia 1+ (5-14) Basophilic Stippling Microcytosis Macrocytosis 1+ (5-14) 1+ (5-14) Spherocytes 1+ (0-2) 1+ (0-2) Target Cells 1+ (5-14) 1+ (5-14) Tear Drop Cells Ovalocytes 1+ (5-14) [place] Cells Acanthocytes (Spur) Schistocytes 1+ (0-2) Smear Tech's Comments Smear Path Review Hold Purple Top PT INR APTT O2 Saturation ABG pH at Pt Temp ABG pCO2 at Pt Temp ABG pO2 at Pt Temp ABG HCO3 ABG Base Excess (Actual) VBG pH 7.40 VBG pCO2 24 VBG pO2 69 VBG HCO3 15 L VBG O2 Saturation 93.0 VBG Base Excess -7.8 Sodium 139 Potassium 3.9 Chloride 112 H Carbon Dioxide 15 L Anion Gap 16 BUN 38 H Creatinine 2.64 H Estim Creat Clear Calc 51.0 Estimated GFR 27 POC Glucose Random Glucose 150 H Lactic Acid Lactic Acid F/U @ 2Hr Lactic Acid F/U @ 4Hr Calcium 9.0 Phosphorus 5.2 H Magnesium 2.7 H Iron TIBC % Saturation Unsat Iron Binding Total Bilirubin 12.0 H Direct Bilirubin AST 106 H ALT 27 Alkaline Phosphatase 89 Ammonia Troponin I High Sens B-Natriuretic Peptide Total Protein 7.1 Albumin 3.4 L Triglycerides 253 H TSH Hold Yellow Top Urine Color Urine Appearance Urine pH Ur Specific [place] Urine Protein Urine Glucose (UA) Urine Ketones Urine Blood Urine Nitrite Ur Leukocyte Esterase Urine RBC Urine WBC Ur Squamous Epith Cells Urine Bacteria Hyaline Casts U Random Total Protein Ur Random Sodium Urine Creatinine Stool Occult Blood Vancomycin Trough 21.8 H Random Vancomycin Ethyl Alcohol Blood Type O Positive Antibody Screen NEGATIVE Crossmatch See Detail 04/01/23 04/01/23 04/01/23 04:32 08:02 11:45 WBC 20.1 H RBC 2.21 L Hgb 6.5 L* Hct 21.9 L MCV 99.1 H MCH 29.4 MCHC 29.7 L RDW 29.1 H Plt Count 202 MPV 11.8 Immature Gran % (Auto) Cancelled Neut % (Auto) Cancelled Lymph % (Auto) Cancelled [place] % (Auto) Cancelled Eos % (Auto) Cancelled Baso % (Auto) Cancelled Lymph # (Auto) Cancelled [place] # (Auto) Cancelled Eos # (Auto) Cancelled Baso # (Auto) Cancelled Abs Immat Gran (auto) Cancelled Absolute Neuts (auto) Cancelled Absolute Nucleated RBC 0.050 H Nucleated RBC % (auto) 0.2 Neutrophils % (Manual) 80 H Band Neutrophils % 5 Lymphocytes % (Manual) 3 L Atypical Lymphs % (Man) Monocytes % (Manual) 9 Eosinophils % (Manual) Basophils % (Manual) 1 Metamyelocytes % 1 Myelocytes % 1 Promyelocytes % Abs Neuts (Manual) 17.1 H Lymphocytes # (Manual) 0.6 L Atyp Lymphs # (Manual) Monocytes # (Manual) 1.8 H Eosinophils # (Manual) Basophils # (Manual) 0.2 Metamyelocytes # 0.2 Myelocytes # 0.2 Promyelocytes # Nucleated RBCs Hypersegmented Neuts Smudge Cells Toxic Granulation PRESENT Toxic Vacuolation Dohle Bodies Platelet Estimate NORMAL Large Platelets Plt Morphology Comment NORMAL RBC Morphology NOTED Polychromasia 1+ (0-2) Hypochromasia Basophilic Stippling Microcytosis Macrocytosis 1+ (5-14) Spherocytes Target Cells 1+ (5-14) Tear Drop Cells 1+ (0-2) Ovalocytes 1+ (5-14) [place] Cells Acanthocytes (Spur) Schistocytes Smear Tech's Comments Smear Path Review Hold Purple Top PT 18.8 H INR 1.5 H APTT O2 Saturation ABG pH at Pt Temp ABG pCO2 at Pt Temp ABG pO2 at Pt Temp ABG HCO3 ABG Base Excess (Actual) VBG pH 7.33 VBG pCO2 31 VBG pO2 66 VBG HCO3 17 L VBG O2 Saturation 91.0 VBG Base Excess -7.7 Sodium 141 Potassium 4.0 Chloride 111 H Carbon Dioxide 17 L Anion Gap 17 BUN 46 H Creatinine 2.50 H Estim Creat Clear Calc 53.8 Estimated GFR 29 POC Glucose Random Glucose 156 H Lactic Acid Lactic Acid F/U @ 2Hr Lactic Acid F/U @ 4Hr Calcium 8.7 Phosphorus 3.8 Magnesium 2.6 Iron TIBC % Saturation Unsat Iron Binding Total Bilirubin 11.9 H Direct Bilirubin AST 96 H ALT 28 Alkaline Phosphatase 69 Ammonia 102 H Troponin I High Sens B-Natriuretic Peptide Total Protein 7.5 Albumin 4.0 Triglycerides 248 H TSH Hold Yellow Top Urine Color Dark Yellow Urine Appearance Clear Urine pH 5.5 Ur Specific [place] 1.020 Urine Protein Trace Urine Glucose (UA) Negative Urine Ketones Negative Urine Blood Moderate (2+) H Urine Nitrite Negative Ur Leukocyte Esterase Negative Urine RBC 11-20 H Urine WBC 0-5 Ur Squamous Epith Cells 3-5 Urine Bacteria None Seen Hyaline Casts 11-20 U Random Total Protein 28 H Ur Random Sodium < 20.0 Urine Creatinine 108.79 Stool Occult Blood Vancomycin Trough Random Vancomycin Ethyl Alcohol Blood Type Antibody Screen Crossmatch 04/01/23 04/01/23 04/01/23 17:56 18:50 20:23 WBC RBC Hgb 7.2 L Hct 23.2 L MCV MCH MCHC RDW Plt Count MPV Immature Gran % (Auto) Neut % (Auto) Lymph % (Auto) [place] % (Auto) Eos % (Auto) Baso % (Auto) Lymph # (Auto) [place] # (Auto) Eos # (Auto) Baso # (Auto) Abs Immat Gran (auto) Absolute Neuts (auto) Absolute Nucleated RBC Nucleated RBC % (auto) Neutrophils % (Manual) Band Neutrophils % Lymphocytes % (Manual) Atypical Lymphs % (Man) Monocytes % (Manual) Eosinophils % (Manual) Basophils % (Manual) Metamyelocytes % Myelocytes % Promyelocytes % Abs Neuts (Manual) Lymphocytes # (Manual) Atyp Lymphs # (Manual) Monocytes # (Manual) Eosinophils # (Manual) Basophils # (Manual) Metamyelocytes # Myelocytes # Promyelocytes # Nucleated RBCs Hypersegmented Neuts Smudge Cells Toxic Granulation Toxic Vacuolation Dohle Bodies Platelet Estimate Large Platelets Plt Morphology Comment RBC Morphology Polychromasia Hypochromasia Basophilic Stippling Microcytosis Macrocytosis Spherocytes Target Cells Tear Drop Cells Ovalocytes Frank Cells Acanthocytes (Spur) Schistocytes Smear Tech's Comments Smear Path Review Hold Purple Top SEE NOTE PT INR APTT O2 Saturation ABG pH at Pt Temp ABG pCO2 at Pt Temp ABG pO2 at Pt Temp ABG HCO3 ABG Base Excess (Actual) VBG pH VBG pCO2 VBG pO2 VBG HCO3 VBG O2 Saturation VBG Base Excess Sodium Potassium Chloride Carbon Dioxide Anion Gap BUN Creatinine Estim Creat Clear Calc Estimated GFR POC Glucose Random Glucose Lactic Acid Lactic Acid F/U @ 2Hr Lactic Acid F/U @ 4Hr Calcium Phosphorus 2.9 Magnesium 2.3 Iron TIBC % Saturation Unsat Iron Binding Total Bilirubin Direct Bilirubin AST ALT Alkaline Phosphatase Ammonia Troponin I High Sens B-Natriuretic Peptide Total Protein Albumin Triglycerides TSH Hold Yellow Top Urine Color Urine Appearance Urine pH Ur Specific [place] Urine Protein Urine Glucose (UA) Urine Ketones Urine Blood Urine Nitrite Ur Leukocyte Esterase Urine RBC Urine WBC Ur Squamous Epith Cells Urine Bacteria Hyaline Casts U Random Total Protein Ur Random Sodium Urine Creatinine Stool Occult Blood POSITIVE Vancomycin Trough Random Vancomycin Ethyl Alcohol Blood Type Antibody Screen Crossmatch 04/02/23 04/02/23 04/02/23 04:28 04:36 09:54 WBC 19.1 H RBC 2.46 L Hgb 7.4 L Hct 24.0 L MCV 97.6 MCH 30.1 MCHC 30.8 L RDW 28.2 H Plt Count 204 MPV 11.9 Immature Gran % (Auto) Cancelled Neut % (Auto) Cancelled Lymph % (Auto) Cancelled [place] % (Auto) Cancelled Eos % (Auto) Cancelled Baso % (Auto) Cancelled Lymph # (Auto) Cancelled [place] # (Auto) Cancelled Eos # (Auto) Cancelled Baso # (Auto) Cancelled Abs Immat Gran (auto) Cancelled Absolute Neuts (auto) Cancelled Absolute Nucleated RBC 0.030 H Nucleated RBC % (auto) 0.2 Neutrophils % (Manual) 71 Band Neutrophils % 5 Lymphocytes % (Manual) 13 L Atypical Lymphs % (Man) Monocytes % (Manual) 7 Eosinophils % (Manual) 2 Basophils % (Manual) 2 Metamyelocytes % Myelocytes % Promyelocytes % Abs Neuts (Manual) 14.5 H Lymphocytes # (Manual) 2.5 Atyp Lymphs # (Manual) Monocytes # (Manual) 1.3 H Eosinophils # (Manual) 0.4 Basophils # (Manual) 0.4 H Metamyelocytes # Myelocytes # Promyelocytes # Nucleated RBCs Hypersegmented Neuts Smudge Cells Toxic Granulation Toxic Vacuolation PRESENT Dohle Bodies Platelet Estimate NORMAL Large Platelets Plt Morphology Comment NORMAL RBC Morphology NOTED Polychromasia 1+ (0-2) Hypochromasia 1+ (5-14) Basophilic Stippling Microcytosis Macrocytosis 1+ (5-14) Spherocytes 1+ (0-2) Target Cells 1+ (5-14) Tear Drop Cells 1+ (0-2) Ovalocytes 1+ (5-14) Frank Cells Acanthocytes (Spur) Schistocytes 1+ (0-2) Smear Tech's Comments Smear Path Review Hold Purple Top PT INR APTT O2 Saturation ABG pH at Pt Temp ABG pCO2 at Pt Temp ABG pO2 at Pt Temp ABG HCO3 ABG Base Excess (Actual) VBG pH 7.37 VBG pCO2 28 VBG pO2 77 VBG HCO3 16 L VBG O2 Saturation 96.0 VBG Base Excess -7.6 Sodium 144 Potassium 2.8 L D Chloride 115 H Carbon Dioxide 17 L Anion Gap 15 BUN 56 H Creatinine 2.23 H Estim Creat Clear Calc 60.6 Estimated GFR 33 POC Glucose Random Glucose 160 H Lactic Acid 1.0 Lactic Acid F/U @ 2Hr Lactic Acid F/U @ 4Hr Calcium 8.9 Phosphorus 2.6 L Magnesium 2.4 Iron TIBC % Saturation Unsat Iron Binding Total Bilirubin Direct Bilirubin AST ALT Alkaline Phosphatase Ammonia Troponin I High Sens B-Natriuretic Peptide Total Protein Albumin 3.7 Triglycerides 284 H TSH Hold Yellow Top Urine Color Urine Appearance Urine pH Ur Specific [place] Urine Protein Urine Glucose (UA) Urine Ketones Urine Blood Urine Nitrite Ur Leukocyte Esterase Urine RBC Urine WBC Ur Squamous Epith Cells Urine Bacteria Hyaline Casts U Random Total Protein Ur Random Sodium Urine Creatinine Stool Occult Blood Vancomycin Trough Random Vancomycin 3.2 L Ethyl Alcohol Blood Type Antibody Screen Crossmatch 04/02/23 04/02/23 04/03/23 18:01 18:48 04:52 WBC 17.8 H 15.8 H RBC 2.50 L 2.71 L Hgb 7.7 L 8.2 L Hct 24.2 L 26.5 L MCV 96.8 97.8 MCH 30.8 30.3 MCHC 31.8 30.9 L RDW 29.2 H 29.5 H Plt Count 200 200 MPV 11.1 12.2 Immature Gran % (Auto) Cancelled Cancelled Neut % (Auto) Cancelled Cancelled Lymph % (Auto) Cancelled Cancelled [place] % (Auto) Cancelled Cancelled Eos % (Auto) Cancelled Cancelled Baso % (Auto) Cancelled Cancelled Lymph # (Auto) Cancelled Cancelled [place] # (Auto) Cancelled Cancelled Eos # (Auto) Cancelled Cancelled Baso # (Auto) Cancelled Cancelled Abs Immat Gran (auto) Cancelled Cancelled Absolute Neuts (auto) Cancelled Cancelled Absolute Nucleated RBC 0.040 H 0.020 H Nucleated RBC % (auto) 0.2 0.1 Neutrophils % (Manual) 80 H 71 Band Neutrophils % 1 L 7 H Lymphocytes % (Manual) 7 L 9 L Atypical Lymphs % (Man) 1 Monocytes % (Manual) 8 5 Eosinophils % (Manual) 2 3 Basophils % (Manual) 2 3 H Metamyelocytes % 1 Myelocytes % Promyelocytes % Abs Neuts (Manual) 14.4 H 12.3 H Lymphocytes # (Manual) 1.2 1.4 Atyp Lymphs # (Manual) 0.2 Monocytes # (Manual) 1.4 H 0.8 Eosinophils # (Manual) 0.4 0.5 H Basophils # (Manual) 0.4 H 0.5 H Metamyelocytes # 0.2 Myelocytes # Promyelocytes # Nucleated RBCs Hypersegmented Neuts PRESENT Smudge Cells Toxic Granulation Toxic Vacuolation PRESENT Dohle Bodies Platelet Estimate NORMAL NORMAL Large Platelets Plt Morphology Comment NORM NORMAL RBC Morphology NOTED NOTED Polychromasia 1+ (0-2) 1+ (0-2) Hypochromasia 1+ (5-14) 1+ (5-14) Basophilic Stippling Microcytosis Macrocytosis 1+ (5-14) 1+ (5-14) Spherocytes 1+ (0-2) Target Cells 1+ (5-14) Tear Drop Cells 1+ (0-2) Ovalocytes 1+ (5-14) [place] Cells Acanthocytes (Spur) Schistocytes 1+ (0-2) 1+ (0-2) Smear Tech's Comments Smear Path Review Hold Purple Top PT 20.7 H INR 1.7 H APTT 39.9 H O2 Saturation ABG pH at Pt Temp ABG pCO2 at Pt Temp ABG pO2 at Pt Temp ABG HCO3 ABG Base Excess (Actual) VBG pH VBG pCO2 VBG pO2 VBG HCO3 VBG O2 Saturation VBG Base Excess Sodium Potassium Chloride Carbon Dioxide Anion Gap BUN Creatinine Estim Creat Clear Calc Estimated GFR POC Glucose Random Glucose Lactic Acid Lactic Acid F/U @ 2Hr Lactic Acid F/U @ 4Hr Calcium Phosphorus Magnesium Iron TIBC % Saturation Unsat Iron Binding Total Bilirubin Direct Bilirubin AST ALT Alkaline Phosphatase Ammonia Troponin I High Sens B-Natriuretic Peptide Total Protein Albumin Triglycerides TSH 0.78 Hold Yellow Top Urine Color Urine Appearance Urine pH Ur Specific [place] Urine Protein Urine Glucose (UA) Urine Ketones Urine Blood Urine Nitrite Ur Leukocyte Esterase Urine RBC Urine WBC Ur Squamous Epith Cells Urine Bacteria Hyaline Casts U Random Total Protein Ur Random Sodium Urine Creatinine Stool Occult Blood Vancomycin Trough Random Vancomycin Ethyl Alcohol Blood Type Antibody Screen Crossmatch 04/03/23 04/03/23 04/03/23 04:53 08:13 13:01 WBC RBC Hgb Hct MCV MCH MCHC RDW Plt Count MPV Immature Gran % (Auto) Neut % (Auto) Lymph % (Auto) [place] % (Auto) Eos % (Auto) Baso % (Auto) Lymph # (Auto) [place] # (Auto) Eos # (Auto) Baso # (Auto) Abs Immat Gran (auto) Absolute Neuts (auto) Absolute Nucleated RBC Nucleated RBC % (auto) Neutrophils % (Manual) Band Neutrophils % Lymphocytes % (Manual) Atypical Lymphs % (Man) Monocytes % (Manual) Eosinophils % (Manual) Basophils % (Manual) Metamyelocytes % Myelocytes % Promyelocytes % Abs Neuts (Manual) Lymphocytes # (Manual) Atyp Lymphs # (Manual) Monocytes # (Manual) Eosinophils # (Manual) Basophils # (Manual) Metamyelocytes # Myelocytes # Promyelocytes # Nucleated RBCs Hypersegmented Neuts Smudge Cells Toxic Granulation Toxic Vacuolation Dohle Bodies Platelet Estimate Large Platelets Plt Morphology Comment RBC Morphology Polychromasia Hypochromasia Basophilic Stippling Microcytosis Macrocytosis Spherocytes Target Cells Tear Drop Cells Ovalocytes [place] Cells Acanthocytes (Spur) Schistocytes Smear Tech's Comments Smear Path Review Hold Purple Top PT INR APTT O2 Saturation ABG pH at Pt Temp ABG pCO2 at Pt Temp ABG pO2 at Pt Temp ABG HCO3 ABG Base Excess (Actual) VBG pH VBG pCO2 VBG pO2 VBG HCO3 VBG O2 Saturation VBG Base Excess Sodium 149 H Potassium 2.7 L Chloride 116 H Carbon Dioxide 18 L Anion Gap 18 BUN 50 H Creatinine 1.77 H Estim Creat Clear Calc 73.5 Estimated GFR 43 POC Glucose 153 H Random Glucose 333 H Lactic Acid Lactic Acid F/U @ 2Hr Lactic Acid F/U @ 4Hr Calcium 9.2 Phosphorus 2.9 Magnesium 2.3 Iron TIBC % Saturation Unsat Iron Binding Total Bilirubin 11.3 H Direct Bilirubin AST ALT Alkaline Phosphatase Ammonia 59 H Troponin I High Sens B-Natriuretic Peptide Total Protein Albumin 3.7 Triglycerides 296 H TSH Hold Yellow Top Urine Color Urine Appearance Urine pH Ur Specific [place] Urine Protein Urine Glucose (UA) Urine Ketones Urine Blood Urine Nitrite Ur Leukocyte Esterase Urine RBC Urine WBC Ur Squamous Epith Cells Urine Bacteria Hyaline Casts U Random Total Protein Ur Random Sodium Urine Creatinine Stool Occult Blood Vancomycin Trough Random Vancomycin Ethyl Alcohol Blood Type Antibody Screen Crossmatch 04/03/23 04/03/23 04/04/23 13:25 16:21 00:12 WBC RBC Hgb Hct MCV MCH MCHC RDW Plt Count MPV Immature Gran % (Auto) Neut % (Auto) Lymph % (Auto) [place] % (Auto) Eos % (Auto) Baso % (Auto) Lymph # (Auto) [place] # (Auto) Eos # (Auto) Baso # (Auto) Abs Immat Gran (auto) Absolute Neuts (auto) Absolute Nucleated RBC Nucleated RBC % (auto) Neutrophils % (Manual) Band Neutrophils % Lymphocytes % (Manual) Atypical Lymphs % (Man) Monocytes % (Manual) Eosinophils % (Manual) Basophils % (Manual) Metamyelocytes % Myelocytes % Promyelocytes % Abs Neuts (Manual) Lymphocytes # (Manual) Atyp Lymphs # (Manual) Monocytes # (Manual) Eosinophils # (Manual) Basophils # (Manual) Metamyelocytes # Myelocytes # Promyelocytes # Nucleated RBCs Hypersegmented Neuts Smudge Cells Toxic Granulation Toxic Vacuolation Dohle Bodies Platelet Estimate Large Platelets Plt Morphology Comment RBC Morphology Polychromasia Hypochromasia Basophilic Stippling Microcytosis Macrocytosis Spherocytes Target Cells Tear Drop Cells Ovalocytes Frank Cells Acanthocytes (Spur) Schistocytes Smear Tech's Comments Smear Path Review Hold Purple Top PT INR APTT O2 Saturation ABG pH at Pt Temp ABG pCO2 at Pt Temp ABG pO2 at Pt Temp ABG HCO3 ABG Base Excess (Actual) VBG pH VBG pCO2 VBG pO2 VBG HCO3 VBG O2 Saturation VBG Base Excess Sodium Potassium Chloride Carbon Dioxide Anion Gap BUN Creatinine Estim Creat Clear Calc Estimated GFR POC Glucose 150 H 175 H 141 H Random Glucose Lactic Acid Lactic Acid F/U @ 2Hr Lactic Acid F/U @ 4Hr Calcium Phosphorus Magnesium Iron TIBC % Saturation Unsat Iron Binding Total Bilirubin Direct Bilirubin AST ALT Alkaline Phosphatase Ammonia Troponin I High Sens B-Natriuretic Peptide Total Protein Albumin Triglycerides TSH Hold Yellow Top Urine Color Urine Appearance Urine pH Ur Specific [place] Urine Protein Urine Glucose (UA) Urine Ketones Urine Blood Urine Nitrite Ur Leukocyte Esterase Urine RBC Urine WBC Ur Squamous Epith Cells Urine Bacteria Hyaline Casts U Random Total Protein Ur Random Sodium Urine Creatinine Stool Occult Blood Vancomycin Trough Random Vancomycin Ethyl Alcohol Blood Type Antibody Screen Crossmatch 04/04/23 04/04/23 04/04/23 05:12 05:14 09:35 WBC 15.2 H RBC 2.50 L Hgb 7.5 L Hct 24.4 L MCV 97.6 MCH 30.0 MCHC 30.7 L RDW 30.0 H Plt Count 164 MPV 11.8 Immature Gran % (Auto) 4.3 H Neut % (Auto) 69.4 Lymph % (Auto) 10.7 L [place] % (Auto) 11.9 H Eos % (Auto) 2.6 Baso % (Auto) 1.1 Lymph # (Auto) 1.6 [place] # (Auto) 1.8 H Eos # (Auto) 0.4 Baso # (Auto) 0.2 Abs Immat Gran (auto) 0.65 H Absolute Neuts (auto) 10.6 H Absolute Nucleated RBC 0.030 H Nucleated RBC % (auto) 0.2 Neutrophils % (Manual) Band Neutrophils % Lymphocytes % (Manual) Atypical Lymphs % (Man) Monocytes % (Manual) Eosinophils % (Manual) Basophils % (Manual) Metamyelocytes % Myelocytes % Promyelocytes % Abs Neuts (Manual) Lymphocytes # (Manual) Atyp Lymphs # (Manual) Monocytes # (Manual) Eosinophils # (Manual) Basophils # (Manual) Metamyelocytes # Myelocytes # Promyelocytes # Nucleated RBCs Hypersegmented Neuts Smudge Cells Toxic Granulation Toxic Vacuolation Dohle Bodies Platelet Estimate Large Platelets Plt Morphology Comment RBC Morphology Polychromasia Hypochromasia Basophilic Stippling Microcytosis Macrocytosis Spherocytes Target Cells Tear Drop Cells Ovalocytes [place] Cells Acanthocytes (Spur) Schistocytes Smear Tech's Comments VERIFIED Smear Path Review Hold Purple Top PT INR APTT O2 Saturation ABG pH at Pt Temp ABG pCO2 at Pt Temp ABG pO2 at Pt Temp ABG HCO3 ABG Base Excess (Actual) VBG pH 7.42 VBG pCO2 38 VBG pO2 66 VBG HCO3 25 VBG O2 Saturation 90.0 VBG Base Excess 1.2 Sodium 153 H Potassium 2.5 L* Chloride 119 H Carbon Dioxide 24 Anion Gap 13 BUN 51 H Creatinine 1.59 H Estim Creat Clear Calc 83.0 Estimated GFR 49 POC Glucose Random Glucose 135 H Lactic Acid Lactic Acid F/U @ 2Hr Lactic Acid F/U @ 4Hr Calcium 9.0 Phosphorus 2.2 L Magnesium 2.2 Iron TIBC % Saturation Unsat Iron Binding Total Bilirubin Direct Bilirubin AST ALT Alkaline Phosphatase Ammonia Troponin I High Sens B-Natriuretic Peptide Total Protein Albumin Triglycerides 275 H TSH Hold Yellow Top Urine Color Urine Appearance Urine pH Ur Specific [place] Urine Protein Urine Glucose (UA) Urine Ketones Urine Blood Urine Nitrite Ur Leukocyte Esterase Urine RBC Urine WBC Ur Squamous Epith Cells Urine Bacteria Hyaline Casts U Random Total Protein Ur Random Sodium Urine Creatinine Stool Occult Blood Vancomycin Trough Random Vancomycin 10.3 L Ethyl Alcohol Blood Type O Positive Antibody Screen NEGATIVE Crossmatch 04/04/23 04/04/23 04/04/23 11:32 17:12 20:54 WBC RBC Hgb Hct MCV MCH MCHC RDW Plt Count MPV Immature Gran % (Auto) Neut % (Auto) Lymph % (Auto) [place] % (Auto) Eos % (Auto) Baso % (Auto) Lymph # (Auto) [place] # (Auto) Eos # (Auto) Baso # (Auto) Abs Immat Gran (auto) Absolute Neuts (auto) Absolute Nucleated RBC Nucleated RBC % (auto) Neutrophils % (Manual) Band Neutrophils % Lymphocytes % (Manual) Atypical Lymphs % (Man) Monocytes % (Manual) Eosinophils % (Manual) Basophils % (Manual) Metamyelocytes % Myelocytes % Promyelocytes % Abs Neuts (Manual) Lymphocytes # (Manual) Atyp Lymphs # (Manual) Monocytes # (Manual) Eosinophils # (Manual) Basophils # (Manual) Metamyelocytes # Myelocytes # Promyelocytes # Nucleated RBCs Hypersegmented Neuts Smudge Cells Toxic Granulation Toxic Vacuolation Dohle Bodies Platelet Estimate Large Platelets Plt Morphology Comment RBC Morphology Polychromasia Hypochromasia Basophilic Stippling Microcytosis Macrocytosis Spherocytes Target Cells Tear Drop Cells Ovalocytes Frank Cells Acanthocytes (Spur) Schistocytes Smear Tech's Comments Smear Path Review Hold Purple Top PT INR APTT O2 Saturation ABG pH at Pt Temp ABG pCO2 at Pt Temp ABG pO2 at Pt Temp ABG HCO3 ABG Base Excess (Actual) VBG pH VBG pCO2 VBG pO2 VBG HCO3 VBG O2 Saturation VBG Base Excess Sodium 155 H Potassium 2.8 L Chloride 121 H Carbon Dioxide 24 Anion Gap 13 BUN 52 H Creatinine 1.65 H Estim Creat Clear Calc 79.9 Estimated GFR 47 POC Glucose 161 H 154 H Random Glucose 129 H Lactic Acid Lactic Acid F/U @ 2Hr Lactic Acid F/U @ 4Hr Calcium 8.7 Phosphorus Magnesium Iron TIBC % Saturation Unsat Iron Binding Total Bilirubin 8.0 H Direct Bilirubin AST 127 H ALT 51 H Alkaline Phosphatase 94 Ammonia Troponin I High Sens B-Natriuretic Peptide Total Protein 6.7 Albumin 3.3 L Triglycerides TSH Hold Yellow Top Urine Color Urine Appearance Urine pH Ur Specific [place] Urine Protein Urine Glucose (UA) Urine Ketones Urine Blood Urine Nitrite Ur Leukocyte Esterase Urine RBC Urine WBC Ur Squamous Epith Cells Urine Bacteria Hyaline Casts U Random Total Protein Ur Random Sodium Urine Creatinine Stool Occult Blood Vancomycin Trough Random Vancomycin Ethyl Alcohol Blood Type Antibody Screen Crossmatch 04/04/23 04/05/23 04/05/23 23:51 05:15 05:27 WBC 14.1 H RBC 2.42 L Hgb 7.3 L Hct 23.8 L MCV 98.3 H MCH 30.2 MCHC 30.7 L RDW 30.0 H Plt Count 157 L MPV 12.2 Immature Gran % (Auto) 4.0 H Neut % (Auto) 66.6 Lymph % (Auto) 12.6 L [place] % (Auto) 12.0 H Eos % (Auto) 4.0 Baso % (Auto) 0.8 Lymph # (Auto) 1.8 [place] # (Auto) 1.7 H Eos # (Auto) 0.6 H Baso # (Auto) 0.1 Abs Immat Gran (auto) 0.57 H Absolute Neuts (auto) 9.4 H Absolute Nucleated RBC 0.040 H Nucleated RBC % (auto) 0.3 H Neutrophils % (Manual) Band Neutrophils % Lymphocytes % (Manual) Atypical Lymphs % (Man) Monocytes % (Manual) Eosinophils % (Manual) Basophils % (Manual) Metamyelocytes % Myelocytes % Promyelocytes % Abs Neuts (Manual) Lymphocytes # (Manual) Atyp Lymphs # (Manual) Monocytes # (Manual) Eosinophils # (Manual) Basophils # (Manual) Metamyelocytes # Myelocytes # Promyelocytes # Nucleated RBCs Hypersegmented Neuts Smudge Cells Toxic Granulation Toxic Vacuolation Dohle Bodies Platelet Estimate Large Platelets Plt Morphology Comment RBC Morphology Polychromasia Hypochromasia Basophilic Stippling Microcytosis Macrocytosis Spherocytes Target Cells Tear Drop Cells Ovalocytes Frank Cells Acanthocytes (Spur) Schistocytes Smear Tech's Comments VERIFIED Smear Path Review Hold Purple Top PT INR APTT O2 Saturation ABG pH at Pt Temp ABG pCO2 at Pt Temp ABG pO2 at Pt Temp ABG HCO3 ABG Base Excess (Actual) VBG pH 7.43 VBG pCO2 35 VBG pO2 63 VBG HCO3 23 VBG O2 Saturation 87.0 VBG Base Excess -0.5 Sodium 153 H Potassium 3.1 L Chloride 121 H Carbon Dioxide 22 Anion Gap 13 BUN 49 H Creatinine 1.38 Estim Creat Clear Calc 94.8 Estimated GFR 58 POC Glucose 134 H Random Glucose 133 H Lactic Acid Lactic Acid F/U @ 2Hr Lactic Acid F/U @ 4Hr Calcium 8.7 Phosphorus 2.5 L Magnesium 2.3 Iron TIBC % Saturation Unsat Iron Binding Total Bilirubin Direct Bilirubin AST ALT Alkaline Phosphatase Ammonia Troponin I High Sens B-Natriuretic Peptide Total Protein Albumin Triglycerides 242 H TSH Hold Yellow Top Urine Color Urine Appearance Urine pH Ur Specific [place] Urine Protein Urine Glucose (UA) Urine Ketones Urine Blood Urine Nitrite Ur Leukocyte Esterase Urine RBC Urine WBC Ur Squamous Epith Cells Urine Bacteria Hyaline Casts U Random Total Protein Ur Random Sodium Urine Creatinine Stool Occult Blood Vancomycin Trough Random Vancomycin Ethyl Alcohol Blood Type Antibody Screen Crossmatch 04/05/23 04/05/23 04/05/23 08:46 11:12 17:15 WBC RBC Hgb Hct MCV MCH MCHC RDW Plt Count MPV Immature Gran % (Auto) Neut % (Auto) Lymph % (Auto) [place] % (Auto) Eos % (Auto) Baso % (Auto) Lymph # (Auto) [place] # (Auto) Eos # (Auto) Baso # (Auto) Abs Immat Gran (auto) Absolute Neuts (auto) Absolute Nucleated RBC Nucleated RBC % (auto) Neutrophils % (Manual) Band Neutrophils % Lymphocytes % (Manual) Atypical Lymphs % (Man) Monocytes % (Manual) Eosinophils % (Manual) Basophils % (Manual) Metamyelocytes % Myelocytes % Promyelocytes % Abs Neuts (Manual) Lymphocytes # (Manual) Atyp Lymphs # (Manual) Monocytes # (Manual) Eosinophils # (Manual) Basophils # (Manual) Metamyelocytes # Myelocytes # Promyelocytes # Nucleated RBCs Hypersegmented Neuts Smudge Cells Toxic Granulation Toxic Vacuolation Dohle Bodies Platelet Estimate Large Platelets Plt Morphology Comment RBC Morphology Polychromasia Hypochromasia Basophilic Stippling Microcytosis Macrocytosis Spherocytes Target Cells Tear Drop Cells Ovalocytes Frank Cells Acanthocytes (Spur) Schistocytes Smear Tech's Comments Smear Path Review Hold Purple Top PT INR APTT O2 Saturation ABG pH at Pt Temp ABG pCO2 at Pt Temp ABG pO2 at Pt Temp ABG HCO3 ABG Base Excess (Actual) VBG pH VBG pCO2 VBG pO2 VBG HCO3 VBG O2 Saturation VBG Base Excess Sodium Potassium Chloride Carbon Dioxide Anion Gap BUN Creatinine Estim Creat Clear Calc Estimated GFR POC Glucose 143 H 144 H Random Glucose Lactic Acid Lactic Acid F/U @ 2Hr Lactic Acid F/U @ 4Hr Calcium Phosphorus Magnesium Iron TIBC % Saturation Unsat Iron Binding Total Bilirubin Direct Bilirubin AST ALT Alkaline Phosphatase Ammonia Troponin I High Sens B-Natriuretic Peptide Total Protein Albumin Triglycerides TSH Hold Yellow Top Urine Color Urine Appearance Urine pH Ur Specific [place] Urine Protein Urine Glucose (UA) Urine Ketones Urine Blood Urine Nitrite Ur Leukocyte Esterase Urine RBC Urine WBC Ur Squamous Epith Cells Urine Bacteria Hyaline Casts U Random Total Protein Ur Random Sodium Urine Creatinine Stool Occult Blood Vancomycin Trough Random Vancomycin 10.7 L Ethyl Alcohol Blood Type Antibody Screen Crossmatch 04/05/23 04/06/23 04/06/23 23:50 05:15 05:21 WBC 12.1 H RBC 2.47 L Hgb 7.3 L Hct 24.8 L MCV 100.4 H MCH 29.6 MCHC 29.4 L RDW 29.5 H Plt Count 153 L MPV Not Reportable Immature Gran % (Auto) 2.6 H Neut % (Auto) 68.5 Lymph % (Auto) 12.6 L [place] % (Auto) 11.0 Eos % (Auto) 4.4 H Baso % (Auto) 0.9 Lymph # (Auto) 1.5 [place] # (Auto) 1.3 H Eos # (Auto) 0.5 H Baso # (Auto) 0.1 Abs Immat Gran (auto) 0.31 H Absolute Neuts (auto) 8.3 Absolute Nucleated RBC 0.020 H Nucleated RBC % (auto) 0.2 Neutrophils % (Manual) Band Neutrophils % Lymphocytes % (Manual) Atypical Lymphs % (Man) Monocytes % (Manual) Eosinophils % (Manual) Basophils % (Manual) Metamyelocytes % Myelocytes % Promyelocytes % Abs Neuts (Manual) Lymphocytes # (Manual) Atyp Lymphs # (Manual) Monocytes # (Manual) Eosinophils # (Manual) Basophils # (Manual) Metamyelocytes # Myelocytes # Promyelocytes # Nucleated RBCs Hypersegmented Neuts Smudge Cells Toxic Granulation Toxic Vacuolation Dohle Bodies Platelet Estimate Large Platelets Plt Morphology Comment RBC Morphology Polychromasia Hypochromasia Basophilic Stippling Microcytosis Macrocytosis Spherocytes Target Cells Tear Drop Cells Ovalocytes Frank Cells Acanthocytes (Spur) Schistocytes Smear Tech's Comments Smear Path Review Hold Purple Top PT INR APTT O2 Saturation ABG pH at Pt Temp ABG pCO2 at Pt Temp ABG pO2 at Pt Temp ABG HCO3 ABG Base Excess (Actual) VBG pH 7.47 H VBG pCO2 28 VBG pO2 73 VBG HCO3 21 L VBG O2 Saturation 96.0 VBG Base Excess -1.8 Sodium 151 H Potassium 3.6 Chloride 121 H Carbon Dioxide 21 L Anion Gap 13 BUN 41 H Creatinine 1.54 H Estim Creat Clear Calc 84.5 Estimated GFR 51 POC Glucose 147 H Random Glucose 133 H Lactic Acid Lactic Acid F/U @ 2Hr Lactic Acid F/U @ 4Hr Calcium 8.9 Phosphorus 3.2 Magnesium 2.6 Iron TIBC % Saturation Unsat Iron Binding Total Bilirubin Direct Bilirubin AST ALT Alkaline Phosphatase Ammonia 43 Troponin I High Sens B-Natriuretic Peptide Total Protein Albumin Triglycerides 267 H TSH Hold Yellow Top Urine Color Urine Appearance Urine pH Ur Specific [place] Urine Protein Urine Glucose (UA) Urine Ketones Urine Blood Urine Nitrite Ur Leukocyte Esterase Urine RBC Urine WBC Ur Squamous Epith Cells Urine Bacteria Hyaline Casts U Random Total Protein Ur Random Sodium Urine Creatinine Stool Occult Blood Vancomycin Trough Random Vancomycin Ethyl Alcohol Blood Type Antibody Screen Crossmatch 04/06/23 04/06/23 04/06/23 09:09 11:27 18:06 WBC RBC Hgb Hct MCV MCH MCHC RDW Plt Count MPV Immature Gran % (Auto) Neut % (Auto) Lymph % (Auto) [place] % (Auto) Eos % (Auto) Baso % (Auto) Lymph # (Auto) [place] # (Auto) Eos # (Auto) Baso # (Auto) Abs Immat Gran (auto) Absolute Neuts (auto) Absolute Nucleated RBC Nucleated RBC % (auto) Neutrophils % (Manual) Band Neutrophils % Lymphocytes % (Manual) Atypical Lymphs % (Man) Monocytes % (Manual) Eosinophils % (Manual) Basophils % (Manual) Metamyelocytes % Myelocytes % Promyelocytes % Abs Neuts (Manual) Lymphocytes # (Manual) Atyp Lymphs # (Manual) Monocytes # (Manual) Eosinophils # (Manual) Basophils # (Manual) Metamyelocytes # Myelocytes # Promyelocytes # Nucleated RBCs Hypersegmented Neuts Smudge Cells Toxic Granulation Toxic Vacuolation Dohle Bodies Platelet Estimate Large Platelets Plt Morphology Comment RBC Morphology Polychromasia Hypochromasia Basophilic Stippling Microcytosis Macrocytosis Spherocytes Target Cells Tear Drop Cells Ovalocytes [place] Cells Acanthocytes (Spur) Schistocytes Smear Tech's Comments Smear Path Review Hold Purple Top PT INR APTT O2 Saturation ABG pH at Pt Temp ABG pCO2 at Pt Temp ABG pO2 at Pt Temp ABG HCO3 ABG Base Excess (Actual) VBG pH VBG pCO2 VBG pO2 VBG HCO3 VBG O2 Saturation VBG Base Excess Sodium Potassium Chloride Carbon Dioxide Anion Gap BUN Creatinine Estim Creat Clear Calc Estimated GFR POC Glucose 129 H 139 H Random Glucose Lactic Acid Lactic Acid F/U @ 2Hr Lactic Acid F/U @ 4Hr Calcium Phosphorus Magnesium Iron TIBC % Saturation Unsat Iron Binding Total Bilirubin Direct Bilirubin AST ALT Alkaline Phosphatase Ammonia Troponin I High Sens B-Natriuretic Peptide Total Protein Albumin Triglycerides TSH Hold Yellow Top Urine Color Urine Appearance Urine pH Ur Specific [place] Urine Protein Urine Glucose (UA) Urine Ketones Urine Blood Urine Nitrite Ur Leukocyte Esterase Urine RBC Urine WBC Ur Squamous Epith Cells Urine Bacteria Hyaline Casts U Random Total Protein Ur Random Sodium Urine Creatinine Stool Occult Blood Vancomycin Trough Random Vancomycin 10.4 L Ethyl Alcohol Blood Type Antibody Screen Crossmatch 04/06/23 04/07/23 04/07/23 23:50 05:17 05:23 WBC 12.6 H RBC 2.73 L Hgb 8.0 L Hct 27.3 L MCV 100.0 H MCH 29.3 MCHC 29.3 L RDW 29.2 H Plt Count 168 MPV Not Reportable Immature Gran % (Auto) 2.1 H Neut % (Auto) 72.5 Lymph % (Auto) 10.3 L [place] % (Auto) 9.5 Eos % (Auto) 4.4 H Baso % (Auto) 1.2 Lymph # (Auto) 1.3 [place] # (Auto) 1.2 Eos # (Auto) 0.6 H Baso # (Auto) 0.2 Abs Immat Gran (auto) 0.27 H Absolute Neuts (auto) 9.1 H Absolute Nucleated RBC 0.000 Nucleated RBC % (auto) 0.0 Neutrophils % (Manual) Band Neutrophils % Lymphocytes % (Manual) Atypical Lymphs % (Man) Monocytes % (Manual) Eosinophils % (Manual) Basophils % (Manual) Metamyelocytes % Myelocytes % Promyelocytes % Abs Neuts (Manual) Lymphocytes # (Manual) Atyp Lymphs # (Manual) Monocytes # (Manual) Eosinophils # (Manual) Basophils # (Manual) Metamyelocytes # Myelocytes # Promyelocytes # Nucleated RBCs Hypersegmented Neuts Smudge Cells Toxic Granulation Toxic Vacuolation Dohle Bodies Platelet Estimate Large Platelets Plt Morphology Comment RBC Morphology Polychromasia Hypochromasia Basophilic Stippling Microcytosis Macrocytosis Spherocytes Target Cells Tear Drop Cells Ovalocytes Frank Cells Acanthocytes (Spur) Schistocytes Smear Tech's Comments Smear Path Review Hold Purple Top PT 17.9 H INR 1.5 H APTT O2 Saturation ABG pH at Pt Temp ABG pCO2 at Pt Temp ABG pO2 at Pt Temp ABG HCO3 ABG Base Excess (Actual) VBG pH 7.44 H VBG pCO2 30 VBG pO2 58 VBG HCO3 21 L VBG O2 Saturation 84.0 VBG Base Excess -2.1 Sodium 153 H Potassium 4.1 Chloride 122 H Carbon Dioxide 20 L Anion Gap 15 BUN 45 H Creatinine 1.72 H Estim Creat Clear Calc 75.7 Estimated GFR 45 POC Glucose 110 Random Glucose 128 H Lactic Acid Lactic Acid F/U @ 2Hr Lactic Acid F/U @ 4Hr Calcium 9.5 D Phosphorus 3.3 Magnesium 2.6 Iron TIBC % Saturation Unsat Iron Binding Total Bilirubin 7.9 H Direct Bilirubin AST ALT Alkaline Phosphatase Ammonia Troponin I High Sens B-Natriuretic Peptide Total Protein Albumin Triglycerides 275 H TSH Hold Yellow Top Urine Color Urine Appearance Urine pH Ur Specific [place] Urine Protein Urine Glucose (UA) Urine Ketones Urine Blood Urine Nitrite Ur Leukocyte Esterase Urine RBC Urine WBC Ur Squamous Epith Cells Urine Bacteria Hyaline Casts U Random Total Protein Ur Random Sodium Urine Creatinine Stool Occult Blood Vancomycin Trough Random Vancomycin Ethyl Alcohol Blood Type O Positive Antibody Screen NEGATIVE Crossmatch 04/07/23 04/07/23 04/07/23 11:26 12:01 18:09 WBC RBC Hgb Hct MCV MCH MCHC RDW Plt Count MPV Immature Gran % (Auto) Neut % (Auto) Lymph % (Auto) [place] % (Auto) Eos % (Auto) Baso % (Auto) Lymph # (Auto) [place] # (Auto) Eos # (Auto) Baso # (Auto) Abs Immat Gran (auto) Absolute Neuts (auto) Absolute Nucleated RBC Nucleated RBC % (auto) Neutrophils % (Manual) Band Neutrophils % Lymphocytes % (Manual) Atypical Lymphs % (Man) Monocytes % (Manual) Eosinophils % (Manual) Basophils % (Manual) Metamyelocytes % Myelocytes % Promyelocytes % Abs Neuts (Manual) Lymphocytes # (Manual) Atyp Lymphs # (Manual) Monocytes # (Manual) Eosinophils # (Manual) Basophils # (Manual) Metamyelocytes # Myelocytes # Promyelocytes # Nucleated RBCs Hypersegmented Neuts Smudge Cells Toxic Granulation Toxic Vacuolation Dohle Bodies Platelet Estimate Large Platelets Plt Morphology Comment RBC Morphology Polychromasia Hypochromasia Basophilic Stippling Microcytosis Macrocytosis Spherocytes Target Cells Tear Drop Cells Ovalocytes [place] Cells Acanthocytes (Spur) Schistocytes Smear Tech's Comments Smear Path Review Hold Purple Top PT INR APTT O2 Saturation ABG pH at Pt Temp ABG pCO2 at Pt Temp ABG pO2 at Pt Temp ABG HCO3 ABG Base Excess (Actual) VBG pH VBG pCO2 VBG pO2 VBG HCO3 VBG O2 Saturation VBG Base Excess Sodium Potassium Chloride Carbon Dioxide Anion Gap BUN Creatinine Estim Creat Clear Calc Estimated GFR POC Glucose 132 H 137 H Random Glucose Lactic Acid Lactic Acid F/U @ 2Hr Lactic Acid F/U @ 4Hr Calcium Phosphorus Magnesium Iron TIBC % Saturation Unsat Iron Binding Total Bilirubin Direct Bilirubin AST ALT Alkaline Phosphatase Ammonia Troponin I High Sens B-Natriuretic Peptide Total Protein Albumin 3.4 L Triglycerides TSH Hold Yellow Top Urine Color Urine Appearance Urine pH Ur Specific [place] Urine Protein Urine Glucose (UA) Urine Ketones Urine Blood Urine Nitrite Ur Leukocyte Esterase Urine RBC Urine WBC Ur Squamous Epith Cells Urine Bacteria Hyaline Casts U Random Total Protein Ur Random Sodium Urine Creatinine Stool Occult Blood Vancomycin Trough Random Vancomycin Ethyl Alcohol Blood Type Antibody Screen Crossmatch 04/07/23 04/07/23 04/08/23 21:10 23:31 04:27 WBC 9.9 RBC Hgb Hct MCV MCH MCHC RDW Plt Count MPV Immature Gran % (Auto) Neut % (Auto) Lymph % (Auto) [place] % (Auto) Eos % (Auto) Baso % (Auto) Lymph # (Auto) [place] # (Auto) Eos # (Auto) Baso # (Auto) Abs Immat Gran (auto) Absolute Neuts (auto) Absolute Nucleated RBC Nucleated RBC % (auto) Neutrophils % (Manual) Band Neutrophils % Lymphocytes % (Manual) Atypical Lymphs % (Man) Monocytes % (Manual) Eosinophils % (Manual) Basophils % (Manual) Metamyelocytes % Myelocytes % Promyelocytes % Abs Neuts (Manual) Lymphocytes # (Manual) Atyp Lymphs # (Manual) Monocytes # (Manual) Eosinophils # (Manual) Basophils # (Manual) Metamyelocytes # Myelocytes # Promyelocytes # Nucleated RBCs Hypersegmented Neuts Smudge Cells Toxic Granulation Toxic Vacuolation Dohle Bodies Platelet Estimate Large Platelets Plt Morphology Comment RBC Morphology Polychromasia Hypochromasia Basophilic Stippling Microcytosis Macrocytosis Spherocytes Target Cells Tear Drop Cells Ovalocytes [place] Cells Acanthocytes (Spur) Schistocytes Smear Tech's Comments Smear Path Review Hold Purple Top PT INR APTT O2 Saturation ABG pH at Pt Temp ABG pCO2 at Pt Temp ABG pO2 at Pt Temp ABG HCO3 ABG Base Excess (Actual) VBG pH VBG pCO2 VBG pO2 VBG HCO3 VBG O2 Saturation VBG Base Excess Sodium 155 H Potassium 4.1 Chloride 123 H Carbon Dioxide 20 L Anion Gap 16 BUN 52 H Creatinine 1.84 H Estim Creat Clear Calc 70.8 Estimated GFR 41 POC Glucose 156 H Random Glucose 135 H Lactic Acid Lactic Acid F/U @ 2Hr Lactic Acid F/U @ 4Hr Calcium 9.7 Phosphorus 2.8 Magnesium 2.6 Iron TIBC % Saturation Unsat Iron Binding Total Bilirubin 7.7 H Direct Bilirubin AST 121 H ALT 49 H Alkaline Phosphatase 90 Ammonia Troponin I High Sens B-Natriuretic Peptide Total Protein 6.8 Albumin 3.2 L Triglycerides 288 H TSH Hold Yellow Top Urine Color Urine Appearance Urine pH Ur Specific [place] Urine Protein Urine Glucose (UA) Urine Ketones Urine Blood Urine Nitrite Ur Leukocyte Esterase Urine RBC Urine WBC Ur Squamous Epith Cells Urine Bacteria Hyaline Casts U Random Total Protein Ur Random Sodium Urine Creatinine Stool Occult Blood Vancomycin Trough Random Vancomycin 20.0 Ethyl Alcohol Blood Type Antibody Screen Crossmatch 04/08/23 04/08/23 04/08/23 04:27 04:27 04:27 WBC Cancelled RBC 2.59 L Cancelled Hgb 7.7 L Cancelled Hct 26.2 L MCV MCH MCHC RDW Plt Count MPV Immature Gran % (Auto) Neut % (Auto) Lymph % (Auto) [place] % (Auto) Eos % (Auto) Baso % (Auto) Lymph # (Auto) [place] # (Auto) Eos # (Auto) Baso # (Auto) Abs Immat Gran (auto) Absolute Neuts (auto) Absolute Nucleated RBC Nucleated RBC % (auto) Neutrophils % (Manual) Band Neutrophils % Lymphocytes % (Manual) Atypical Lymphs % (Man) Monocytes % (Manual) Eosinophils % (Manual) Basophils % (Manual) Metamyelocytes % Myelocytes % Promyelocytes % Abs Neuts (Manual) Lymphocytes # (Manual) Atyp Lymphs # (Manual) Monocytes # (Manual) Eosinophils # (Manual) Basophils # (Manual) Metamyelocytes # Myelocytes # Promyelocytes # Nucleated RBCs Hypersegmented Neuts Smudge Cells Toxic Granulation Toxic Vacuolation Dohle Bodies Platelet Estimate Large Platelets Plt Morphology Comment RBC Morphology Polychromasia Hypochromasia Basophilic Stippling Microcytosis Macrocytosis Spherocytes Target Cells Tear Drop Cells Ovalocytes [place] Cells Acanthocytes (Spur) Schistocytes Smear Tech's Comments Smear Path Review Hold Purple Top PT INR APTT O2 Saturation ABG pH at Pt Temp ABG pCO2 at Pt Temp ABG pO2 at Pt Temp ABG HCO3 ABG Base Excess (Actual) VBG pH VBG pCO2 VBG pO2 VBG HCO3 VBG O2 Saturation VBG Base Excess Sodium Potassium Chloride Carbon Dioxide Anion Gap BUN Creatinine Estim Creat Clear Calc Estimated GFR POC Glucose Random Glucose Lactic Acid Lactic Acid F/U @ 2Hr Lactic Acid F/U @ 4Hr Calcium Phosphorus Magnesium Iron TIBC % Saturation Unsat Iron Binding Total Bilirubin Direct Bilirubin AST ALT Alkaline Phosphatase Ammonia Troponin I High Sens B-Natriuretic Peptide Total Protein Albumin Triglycerides TSH Hold Yellow Top Urine Color Urine Appearance Urine pH Ur Specific [place] Urine Protein Urine Glucose (UA) Urine Ketones Urine Blood Urine Nitrite Ur Leukocyte Esterase Urine RBC Urine WBC Ur Squamous Epith Cells Urine Bacteria Hyaline Casts U Random Total Protein Ur Random Sodium Urine Creatinine Stool Occult Blood Vancomycin Trough Random Vancomycin Ethyl Alcohol Blood Type Antibody Screen Crossmatch 04/08/23 04/08/23 04/08/23 04:27 04:27 04:27 WBC RBC Hgb Hct Cancelled MCV 101.2 H Cancelled MCH 29.7 Cancelled MCHC 29.4 L RDW Plt Count MPV Immature Gran % (Auto) Neut % (Auto) Lymph % (Auto) [place] % (Auto) Eos % (Auto) Baso % (Auto) Lymph # (Auto) [place] # (Auto) Eos # (Auto) Baso # (Auto) Abs Immat Gran (auto) Absolute Neuts (auto) Absolute Nucleated RBC Nucleated RBC % (auto) Neutrophils % (Manual) Band Neutrophils % Lymphocytes % (Manual) Atypical Lymphs % (Man) Monocytes % (Manual) Eosinophils % (Manual) Basophils % (Manual) Metamyelocytes % Myelocytes % Promyelocytes % Abs Neuts (Manual) Lymphocytes # (Manual) Atyp Lymphs # (Manual) Monocytes # (Manual) Eosinophils # (Manual) Basophils # (Manual) Metamyelocytes # Myelocytes # Promyelocytes # Nucleated RBCs Hypersegmented Neuts Smudge Cells Toxic Granulation Toxic Vacuolation Dohle Bodies Platelet Estimate Large Platelets Plt Morphology Comment RBC Morphology Polychromasia Hypochromasia Basophilic Stippling Microcytosis Macrocytosis Spherocytes Target Cells Tear Drop Cells Ovalocytes Frank Cells Acanthocytes (Spur) Schistocytes Smear Tech's Comments Smear Path Review Hold Purple Top PT INR APTT O2 Saturation ABG pH at Pt Temp ABG pCO2 at Pt Temp ABG pO2 at Pt Temp ABG HCO3 ABG Base Excess (Actual) VBG pH VBG pCO2 VBG pO2 VBG HCO3 VBG O2 Saturation VBG Base Excess Sodium Potassium Chloride Carbon Dioxide Anion Gap BUN Creatinine Estim Creat Clear Calc Estimated GFR POC Glucose Random Glucose Lactic Acid Lactic Acid F/U @ 2Hr Lactic Acid F/U @ 4Hr Calcium Phosphorus Magnesium Iron TIBC % Saturation Unsat Iron Binding Total Bilirubin Direct Bilirubin AST ALT Alkaline Phosphatase Ammonia Troponin I High Sens B-Natriuretic Peptide Total Protein Albumin Triglycerides TSH Hold Yellow Top Urine Color Urine Appearance Urine pH Ur Specific [place] Urine Protein Urine Glucose (UA) Urine Ketones Urine Blood Urine Nitrite Ur Leukocyte Esterase Urine RBC Urine WBC Ur Squamous Epith Cells Urine Bacteria Hyaline Casts U Random Total Protein Ur Random Sodium Urine Creatinine Stool Occult Blood Vancomycin Trough Random Vancomycin Ethyl Alcohol Blood Type Antibody Screen Crossmatch 04/08/23 04/08/23 04/08/23 04:27 04:27 04:27 WBC RBC Hgb Hct MCV MCH MCHC Cancelled RDW 29.3 H Cancelled Plt Count 161 Cancelled MPV Not Reportable Immature Gran % (Auto) Neut % (Auto) Lymph % (Auto) [place] % (Auto) Eos % (Auto) Baso % (Auto) Lymph # (Auto) [place] # (Auto) Eos # (Auto) Baso # (Auto) Abs Immat Gran (auto) Absolute Neuts (auto) Absolute Nucleated RBC Nucleated RBC % (auto) Neutrophils % (Manual) Band Neutrophils % Lymphocytes % (Manual) Atypical Lymphs % (Man) Monocytes % (Manual) Eosinophils % (Manual) Basophils % (Manual) Metamyelocytes % Myelocytes % Promyelocytes % Abs Neuts (Manual) Lymphocytes # (Manual) Atyp Lymphs # (Manual) Monocytes # (Manual) Eosinophils # (Manual) Basophils # (Manual) Metamyelocytes # Myelocytes # Promyelocytes # Nucleated RBCs Hypersegmented Neuts Smudge Cells Toxic Granulation Toxic Vacuolation Dohle Bodies Platelet Estimate Large Platelets Plt Morphology Comment RBC Morphology Polychromasia Hypochromasia Basophilic Stippling Microcytosis Macrocytosis Spherocytes Target Cells Tear Drop Cells Ovalocytes Frank Cells Acanthocytes (Spur) Schistocytes Smear Tech's Comments Smear Path Review Hold Purple Top PT INR APTT O2 Saturation ABG pH at Pt Temp ABG pCO2 at Pt Temp ABG pO2 at Pt Temp ABG HCO3 ABG Base Excess (Actual) VBG pH VBG pCO2 VBG pO2 VBG HCO3 VBG O2 Saturation VBG Base Excess Sodium Potassium Chloride Carbon Dioxide Anion Gap BUN Creatinine Estim Creat Clear Calc Estimated GFR POC Glucose Random Glucose Lactic Acid Lactic Acid F/U @ 2Hr Lactic Acid F/U @ 4Hr Calcium Phosphorus Magnesium Iron TIBC % Saturation Unsat Iron Binding Total Bilirubin Direct Bilirubin AST ALT Alkaline Phosphatase Ammonia Troponin I High Sens B-Natriuretic Peptide Total Protein Albumin Triglycerides TSH Hold Yellow Top Urine Color Urine Appearance Urine pH Ur Specific [place] Urine Protein Urine Glucose (UA) Urine Ketones Urine Blood Urine Nitrite Ur Leukocyte Esterase Urine RBC Urine WBC Ur Squamous Epith Cells Urine Bacteria Hyaline Casts U Random Total Protein Ur Random Sodium Urine Creatinine Stool Occult Blood Vancomycin Trough Random Vancomycin Ethyl Alcohol Blood Type Antibody Screen Crossmatch 04/08/23 04/08/23 04/08/23 04:27 04:27 04:27 WBC RBC Hgb Hct MCV MCH MCHC RDW Plt Count MPV Cancelled Immature Gran % (Auto) 1.7 H Cancelled Neut % (Auto) 77.5 H Cancelled Lymph % (Auto) 7.9 L [place] % (Auto) Eos % (Auto) Baso % (Auto) Lymph # (Auto) [place] # (Auto) Eos # (Auto) Baso # (Auto) Abs Immat Gran (auto) Absolute Neuts (auto) Absolute Nucleated RBC Nucleated RBC % (auto) Neutrophils % (Manual) Band Neutrophils % Lymphocytes % (Manual) Atypical Lymphs % (Man) Monocytes % (Manual) Eosinophils % (Manual) Basophils % (Manual) Metamyelocytes % Myelocytes % Promyelocytes % Abs Neuts (Manual) Lymphocytes # (Manual) Atyp Lymphs # (Manual) Monocytes # (Manual) Eosinophils # (Manual) Basophils # (Manual) Metamyelocytes # Myelocytes # Promyelocytes # Nucleated RBCs Hypersegmented Neuts Smudge Cells Toxic Granulation Toxic Vacuolation Dohle Bodies Platelet Estimate Large Platelets Plt Morphology Comment RBC Morphology Polychromasia Hypochromasia Basophilic Stippling Microcytosis Macrocytosis Spherocytes Target Cells Tear Drop Cells Ovalocytes [place] Cells Acanthocytes (Spur) Schistocytes Smear Tech's Comments Smear Path Review Hold Purple Top PT INR APTT O2 Saturation ABG pH at Pt Temp ABG pCO2 at Pt Temp ABG pO2 at Pt Temp ABG HCO3 ABG Base Excess (Actual) VBG pH VBG pCO2 VBG pO2 VBG HCO3 VBG O2 Saturation VBG Base Excess Sodium Potassium Chloride Carbon Dioxide Anion Gap BUN Creatinine Estim Creat Clear Calc Estimated GFR POC Glucose Random Glucose Lactic Acid Lactic Acid F/U @ 2Hr Lactic Acid F/U @ 4Hr Calcium Phosphorus Magnesium Iron TIBC % Saturation Unsat Iron Binding Total Bilirubin Direct Bilirubin AST ALT Alkaline Phosphatase Ammonia Troponin I High Sens B-Natriuretic Peptide Total Protein Albumin Triglycerides TSH Hold Yellow Top Urine Color Urine Appearance Urine pH Ur Specific [place] Urine Protein Urine Glucose (UA) Urine Ketones Urine Blood Urine Nitrite Ur Leukocyte Esterase Urine RBC Urine WBC Ur Squamous Epith Cells Urine Bacteria Hyaline Casts U Random Total Protein Ur Random Sodium Urine Creatinine Stool Occult Blood Vancomycin Trough Random Vancomycin Ethyl Alcohol Blood Type Antibody Screen Crossmatch 04/08/23 04/08/23 04/08/23 04:27 04:27 04:27 WBC RBC Hgb Hct MCV MCH MCHC RDW Plt Count MPV Immature Gran % (Auto) Neut % (Auto) Lymph % (Auto) Cancelled [place] % (Auto) 7.7 Cancelled Eos % (Auto) 4.5 H Cancelled Baso % (Auto) 0.7 Lymph # (Auto) [place] # (Auto) Eos # (Auto) Baso # (Auto) Abs Immat Gran (auto) Absolute Neuts (auto) Absolute Nucleated RBC Nucleated RBC % (auto) Neutrophils % (Manual) Band Neutrophils % Lymphocytes % (Manual) Atypical Lymphs % (Man) Monocytes % (Manual) Eosinophils % (Manual) Basophils % (Manual) Metamyelocytes % Myelocytes % Promyelocytes % Abs Neuts (Manual) Lymphocytes # (Manual) Atyp Lymphs # (Manual) Monocytes # (Manual) Eosinophils # (Manual) Basophils # (Manual) Metamyelocytes # Myelocytes # Promyelocytes # Nucleated RBCs Hypersegmented Neuts Smudge Cells Toxic Granulation Toxic Vacuolation Dohle Bodies Platelet Estimate Large Platelets Plt Morphology Comment RBC Morphology Polychromasia Hypochromasia Basophilic Stippling Microcytosis Macrocytosis Spherocytes Target Cells Tear Drop Cells Ovalocytes Frank Cells Acanthocytes (Spur) Schistocytes Smear Tech's Comments Smear Path Review Hold Purple Top PT INR APTT O2 Saturation ABG pH at Pt Temp ABG pCO2 at Pt Temp ABG pO2 at Pt Temp ABG HCO3 ABG Base Excess (Actual) VBG pH VBG pCO2 VBG pO2 VBG HCO3 VBG O2 Saturation VBG Base Excess Sodium Potassium Chloride Carbon Dioxide Anion Gap BUN Creatinine Estim Creat Clear Calc Estimated GFR POC Glucose Random Glucose Lactic Acid Lactic Acid F/U @ 2Hr Lactic Acid F/U @ 4Hr Calcium Phosphorus Magnesium Iron TIBC % Saturation Unsat Iron Binding Total Bilirubin Direct Bilirubin AST ALT Alkaline Phosphatase Ammonia Troponin I High Sens B-Natriuretic Peptide Total Protein Albumin Triglycerides TSH Hold Yellow Top Urine Color Urine Appearance Urine pH Ur Specific [place] Urine Protein Urine Glucose (UA) Urine Ketones Urine Blood Urine Nitrite Ur Leukocyte Esterase Urine RBC Urine WBC Ur Squamous Epith Cells Urine Bacteria Hyaline Casts U Random Total Protein Ur Random Sodium Urine Creatinine Stool Occult Blood Vancomycin Trough Random Vancomycin Ethyl Alcohol Blood Type Antibody Screen Crossmatch 04/08/23 04/08/23 04/08/23 04:27 04:27 04:27 WBC RBC Hgb Hct MCV MCH MCHC RDW Plt Count MPV Immature Gran % (Auto) Neut % (Auto) Lymph % (Auto) [place] % (Auto) Eos % (Auto) Baso % (Auto) Cancelled Lymph # (Auto) 0.8 L Cancelled [place] # (Auto) 0.8 Cancelled Eos # (Auto) 0.5 H Baso # (Auto) Abs Immat Gran (auto) Absolute Neuts (auto) Absolute Nucleated RBC Nucleated RBC % (auto) Neutrophils % (Manual) Band Neutrophils % Lymphocytes % (Manual) Atypical Lymphs % (Man) Monocytes % (Manual) Eosinophils % (Manual) Basophils % (Manual) Metamyelocytes % Myelocytes % Promyelocytes % Abs Neuts (Manual) Lymphocytes # (Manual) Atyp Lymphs # (Manual) Monocytes # (Manual) Eosinophils # (Manual) Basophils # (Manual) Metamyelocytes # Myelocytes # Promyelocytes # Nucleated RBCs Hypersegmented Neuts Smudge Cells Toxic Granulation Toxic Vacuolation Dohle Bodies Platelet Estimate Large Platelets Plt Morphology Comment RBC Morphology Polychromasia Hypochromasia Basophilic Stippling Microcytosis Macrocytosis Spherocytes Target Cells Tear Drop Cells Ovalocytes Frank Cells Acanthocytes (Spur) Schistocytes Smear Tech's Comments Smear Path Review Hold Purple Top PT INR APTT O2 Saturation ABG pH at Pt Temp ABG pCO2 at Pt Temp ABG pO2 at Pt Temp ABG HCO3 ABG Base Excess (Actual) VBG pH VBG pCO2 VBG pO2 VBG HCO3 VBG O2 Saturation VBG Base Excess Sodium Potassium Chloride Carbon Dioxide Anion Gap BUN Creatinine Estim Creat Clear Calc Estimated GFR POC Glucose Random Glucose Lactic Acid Lactic Acid F/U @ 2Hr Lactic Acid F/U @ 4Hr Calcium Phosphorus Magnesium Iron TIBC % Saturation Unsat Iron Binding Total Bilirubin Direct Bilirubin AST ALT Alkaline Phosphatase Ammonia Troponin I High Sens B-Natriuretic Peptide Total Protein Albumin Triglycerides TSH Hold Yellow Top Urine Color Urine Appearance Urine pH Ur Specific [place] Urine Protein Urine Glucose (UA) Urine Ketones Urine Blood Urine Nitrite Ur Leukocyte Esterase Urine RBC Urine WBC Ur Squamous Epith Cells Urine Bacteria Hyaline Casts U Random Total Protein Ur Random Sodium Urine Creatinine Stool Occult Blood Vancomycin Trough Random Vancomycin Ethyl Alcohol Blood Type Antibody Screen Crossmatch 04/08/23 04/08/23 04/08/23 04:27 04:27 04:27 WBC RBC Hgb Hct MCV MCH MCHC RDW Plt Count MPV Immature Gran % (Auto) Neut % (Auto) Lymph % (Auto) [place] % (Auto) Eos % (Auto) Baso % (Auto) Lymph # (Auto) [place] # (Auto) Eos # (Auto) Cancelled Baso # (Auto) 0.1 Cancelled Abs Immat Gran (auto) 0.17 H Cancelled Absolute Neuts (auto) 7.7 Absolute Nucleated RBC Nucleated RBC % (auto) Neutrophils % (Manual) Band Neutrophils % Lymphocytes % (Manual) Atypical Lymphs % (Man) Monocytes % (Manual) Eosinophils % (Manual) Basophils % (Manual) Metamyelocytes % Myelocytes % Promyelocytes % Abs Neuts (Manual) Lymphocytes # (Manual) Atyp Lymphs # (Manual) Monocytes # (Manual) Eosinophils # (Manual) Basophils # (Manual) Metamyelocytes # Myelocytes # Promyelocytes # Nucleated RBCs Hypersegmented Neuts Smudge Cells Toxic Granulation Toxic Vacuolation Dohle Bodies Platelet Estimate Large Platelets Plt Morphology Comment RBC Morphology Polychromasia Hypochromasia Basophilic Stippling Microcytosis Macrocytosis Spherocytes Target Cells Tear Drop Cells Ovalocytes Frank Cells Acanthocytes (Spur) Schistocytes Smear Tech's Comments Smear Path Review Hold Purple Top PT INR APTT O2 Saturation ABG pH at Pt Temp ABG pCO2 at Pt Temp ABG pO2 at Pt Temp ABG HCO3 ABG Base Excess (Actual) VBG pH VBG pCO2 VBG pO2 VBG HCO3 VBG O2 Saturation VBG Base Excess Sodium Potassium Chloride Carbon Dioxide Anion Gap BUN Creatinine Estim Creat Clear Calc Estimated GFR POC Glucose Random Glucose Lactic Acid Lactic Acid F/U @ 2Hr Lactic Acid F/U @ 4Hr Calcium Phosphorus Magnesium Iron TIBC % Saturation Unsat Iron Binding Total Bilirubin Direct Bilirubin AST ALT Alkaline Phosphatase Ammonia Troponin I High Sens B-Natriuretic Peptide Total Protein Albumin Triglycerides TSH Hold Yellow Top Urine Color Urine Appearance Urine pH Ur Specific [place] Urine Protein Urine Glucose (UA) Urine Ketones Urine Blood Urine Nitrite Ur Leukocyte Esterase Urine RBC Urine WBC Ur Squamous Epith Cells Urine Bacteria Hyaline Casts U Random Total Protein Ur Random Sodium Urine Creatinine Stool Occult Blood Vancomycin Trough Random Vancomycin Ethyl Alcohol Blood Type Antibody Screen Crossmatch 04/08/23 04/08/23 04/08/23 04:27 04:27 04:27 WBC RBC Hgb Hct MCV MCH MCHC RDW Plt Count MPV Immature Gran % (Auto) Neut % (Auto) Lymph % (Auto) [place] % (Auto) Eos % (Auto) Baso % (Auto) Lymph # (Auto) [place] # (Auto) Eos # (Auto) Baso # (Auto) Abs Immat Gran (auto) Absolute Neuts (auto) Cancelled Absolute Nucleated RBC 0.000 Cancelled Nucleated RBC % (auto) 0.0 Cancelled Neutrophils % (Manual) Band Neutrophils % Lymphocytes % (Manual) Atypical Lymphs % (Man) Monocytes % (Manual) Eosinophils % (Manual) Basophils % (Manual) Metamyelocytes % Myelocytes % Promyelocytes % Abs Neuts (Manual) Lymphocytes # (Manual) Atyp Lymphs # (Manual) Monocytes # (Manual) Eosinophils # (Manual) Basophils # (Manual) Metamyelocytes # Myelocytes # Promyelocytes # Nucleated RBCs Hypersegmented Neuts Smudge Cells Toxic Granulation Toxic Vacuolation Dohle Bodies Platelet Estimate Large Platelets Plt Morphology Comment RBC Morphology Polychromasia Hypochromasia Basophilic Stippling Microcytosis Macrocytosis Spherocytes Target Cells Tear Drop Cells Ovalocytes [place] Cells Acanthocytes (Spur) Schistocytes Smear Tech's Comments Smear Path Review Hold Purple Top PT INR APTT O2 Saturation ABG pH at Pt Temp ABG pCO2 at Pt Temp ABG pO2 at Pt Temp ABG HCO3 ABG Base Excess (Actual) VBG pH VBG pCO2 VBG pO2 VBG HCO3 VBG O2 Saturation VBG Base Excess Sodium 153 H Potassium 4.0 Chloride 123 H Carbon Dioxide 19 L Anion Gap 15 BUN 50 H Creatinine 1.68 H Estim Creat Clear Calc 76.7 Estimated GFR 46 POC Glucose Random Glucose 136 H Lactic Acid Lactic Acid F/U @ 2Hr Lactic Acid F/U @ 4Hr Calcium 9.4 Phosphorus 3.7 Magnesium 2.5 Iron TIBC % Saturation Unsat Iron Binding Total Bilirubin Direct Bilirubin AST ALT Alkaline Phosphatase Ammonia Troponin I High Sens B-Natriuretic Peptide Total Protein Albumin Triglycerides 170 H TSH Hold Yellow Top Urine Color Urine Appearance Urine pH Ur Specific [place] Urine Protein Urine Glucose (UA) Urine Ketones Urine Blood Urine Nitrite Ur Leukocyte Esterase Urine RBC Urine WBC Ur Squamous Epith Cells Urine Bacteria Hyaline Casts U Random Total Protein Ur Random Sodium Urine Creatinine Stool Occult Blood Vancomycin Trough Random Vancomycin Ethyl Alcohol Blood Type Antibody Screen Crossmatch 04/08/23 04/08/23 04/08/23 04:28 05:23 09:13 WBC RBC Hgb Hct MCV MCH MCHC RDW Plt Count MPV Immature Gran % (Auto) Neut % (Auto) Lymph % (Auto) [place] % (Auto) Eos % (Auto) Baso % (Auto) Lymph # (Auto) [place] # (Auto) Eos # (Auto) Baso # (Auto) Abs Immat Gran (auto) Absolute Neuts (auto) Absolute Nucleated RBC Nucleated RBC % (auto) Neutrophils % (Manual) Band Neutrophils % Lymphocytes % (Manual) Atypical Lymphs % (Man) Monocytes % (Manual) Eosinophils % (Manual) Basophils % (Manual) Metamyelocytes % Myelocytes % Promyelocytes % Abs Neuts (Manual) Lymphocytes # (Manual) Atyp Lymphs # (Manual) Monocytes # (Manual) Eosinophils # (Manual) Basophils # (Manual) Metamyelocytes # Myelocytes # Promyelocytes # Nucleated RBCs Hypersegmented Neuts Smudge Cells Toxic Granulation Toxic Vacuolation Dohle Bodies Platelet Estimate Large Platelets Plt Morphology Comment RBC Morphology Polychromasia Hypochromasia Basophilic Stippling Microcytosis Macrocytosis Spherocytes Target Cells Tear Drop Cells Ovalocytes [place] Cells Acanthocytes (Spur) Schistocytes Smear Tech's Comments Smear Path Review Hold Purple Top PT INR APTT O2 Saturation ABG pH at Pt Temp ABG pCO2 at Pt Temp ABG pO2 at Pt Temp ABG HCO3 ABG Base Excess (Actual) VBG pH 7.44 H VBG pCO2 31 VBG pO2 62 VBG HCO3 21 L VBG O2 Saturation 86.0 VBG Base Excess -1.8 Sodium Potassium Chloride Carbon Dioxide Anion Gap BUN Creatinine Estim Creat Clear Calc Estimated GFR POC Glucose 124 H Random Glucose Lactic Acid Lactic Acid F/U @ 2Hr Lactic Acid F/U @ 4Hr Calcium Phosphorus Magnesium Iron TIBC % Saturation Unsat Iron Binding Total Bilirubin Direct Bilirubin AST ALT Alkaline Phosphatase Ammonia Troponin I High Sens B-Natriuretic Peptide Total Protein Albumin Triglycerides TSH Hold Yellow Top Urine Color Urine Appearance Urine pH Ur Specific [place] Urine Protein Urine Glucose (UA) Urine Ketones Urine Blood Urine Nitrite Ur Leukocyte Esterase Urine RBC Urine WBC Ur Squamous Epith Cells Urine Bacteria Hyaline Casts U Random Total Protein Ur Random Sodium Urine Creatinine Stool Occult Blood Vancomycin Trough Random Vancomycin 17.6 Ethyl Alcohol Blood Type Antibody Screen Crossmatch 04/08/23 04/08/23 04/08/23 11:42 17:51 23:45 WBC RBC Hgb Hct MCV MCH MCHC RDW Plt Count MPV Immature Gran % (Auto) Neut % (Auto) Lymph % (Auto) [place] % (Auto) Eos % (Auto) Baso % (Auto) Lymph # (Auto) [place] # (Auto) Eos # (Auto) Baso # (Auto) Abs Immat Gran (auto) Absolute Neuts (auto) Absolute Nucleated RBC Nucleated RBC % (auto) Neutrophils % (Manual) Band Neutrophils % Lymphocytes % (Manual) Atypical Lymphs % (Man) Monocytes % (Manual) Eosinophils % (Manual) Basophils % (Manual) Metamyelocytes % Myelocytes % Promyelocytes % Abs Neuts (Manual) Lymphocytes # (Manual) Atyp Lymphs # (Manual) Monocytes # (Manual) Eosinophils # (Manual) Basophils # (Manual) Metamyelocytes # Myelocytes # Promyelocytes # Nucleated RBCs Hypersegmented Neuts Smudge Cells Toxic Granulation Toxic Vacuolation Dohle Bodies Platelet Estimate Large Platelets Plt Morphology Comment RBC Morphology Polychromasia Hypochromasia Basophilic Stippling Microcytosis Macrocytosis Spherocytes Target Cells Tear Drop Cells Ovalocytes Frank Cells Acanthocytes (Spur) Schistocytes Smear Tech's Comments Smear Path Review Hold Purple Top PT INR APTT O2 Saturation ABG pH at Pt Temp ABG pCO2 at Pt Temp ABG pO2 at Pt Temp ABG HCO3 ABG Base Excess (Actual) VBG pH VBG pCO2 VBG pO2 VBG HCO3 VBG O2 Saturation VBG Base Excess Sodium Potassium Chloride Carbon Dioxide Anion Gap BUN Creatinine Estim Creat Clear Calc Estimated GFR POC Glucose 125 H 159 H 136 H Random Glucose Lactic Acid Lactic Acid F/U @ 2Hr Lactic Acid F/U @ 4Hr Calcium Phosphorus Magnesium Iron TIBC % Saturation Unsat Iron Binding Total Bilirubin Direct Bilirubin AST ALT Alkaline Phosphatase Ammonia Troponin I High Sens B-Natriuretic Peptide Total Protein Albumin Triglycerides TSH Hold Yellow Top Urine Color Urine Appearance Urine pH Ur Specific [place] Urine Protein Urine Glucose (UA) Urine Ketones Urine Blood Urine Nitrite Ur Leukocyte Esterase Urine RBC Urine WBC Ur Squamous Epith Cells Urine Bacteria Hyaline Casts U Random Total Protein Ur Random Sodium Urine Creatinine Stool Occult Blood Vancomycin Trough Random Vancomycin Ethyl Alcohol Blood Type Antibody Screen Crossmatch 04/09/23 04/09/23 04/09/23 04:56 05:02 12:11 WBC 9.5 RBC 2.43 L Hgb 7.3 L Hct 24.8 L MCV 102.1 H MCH 30.0 MCHC 29.4 L RDW TNP Plt Count 147 L MPV TNP Immature Gran % (Auto) 0.8 H Neut % (Auto) 75.6 H Lymph % (Auto) 10.0 L [place] % (Auto) 8.5 Eos % (Auto) 4.4 H Baso % (Auto) 0.7 Lymph # (Auto) 1.0 L [place] # (Auto) 0.8 Eos # (Auto) 0.4 Baso # (Auto) 0.1 Abs Immat Gran (auto) 0.08 H Absolute Neuts (auto) 7.2 Absolute Nucleated RBC 0.000 Nucleated RBC % (auto) 0.0 Neutrophils % (Manual) Band Neutrophils % Lymphocytes % (Manual) Atypical Lymphs % (Man) Monocytes % (Manual) Eosinophils % (Manual) Basophils % (Manual) Metamyelocytes % Myelocytes % Promyelocytes % Abs Neuts (Manual) Lymphocytes # (Manual) Atyp Lymphs # (Manual) Monocytes # (Manual) Eosinophils # (Manual) Basophils # (Manual) Metamyelocytes # Myelocytes # Promyelocytes # Nucleated RBCs Hypersegmented Neuts Smudge Cells Toxic Granulation Toxic Vacuolation Dohle Bodies Platelet Estimate Large Platelets Plt Morphology Comment RBC Morphology Polychromasia Hypochromasia Basophilic Stippling Microcytosis Macrocytosis Spherocytes Target Cells Tear Drop Cells Ovalocytes [place] Cells Acanthocytes (Spur) Schistocytes Smear Tech's Comments Smear Path Review Hold Purple Top PT INR APTT O2 Saturation ABG pH at Pt Temp ABG pCO2 at Pt Temp ABG pO2 at Pt Temp ABG HCO3 ABG Base Excess (Actual) VBG pH 7.48 H VBG pCO2 28 VBG pO2 60 VBG HCO3 21 L VBG O2 Saturation 86.0 VBG Base Excess -1.4 Sodium 156 H Potassium 4.6 Chloride 125 H Carbon Dioxide 21 L Anion Gap 15 BUN 58 H Creatinine 1.72 H Estim Creat Clear Calc 74.9 Estimated GFR 45 POC Glucose 140 H Random Glucose 155 H Lactic Acid Lactic Acid F/U @ 2Hr Lactic Acid F/U @ 4Hr Calcium 9.7 Phosphorus 4.0 Magnesium 2.8 H Iron TIBC % Saturation Unsat Iron Binding Total Bilirubin 6.9 H Direct Bilirubin AST 120 H ALT 52 H Alkaline Phosphatase 101 Ammonia Troponin I High Sens B-Natriuretic Peptide Total Protein 6.6 Albumin 3.2 L Triglycerides TSH Hold Yellow Top Urine Color Urine Appearance Urine pH Ur Specific [place] Urine Protein Urine Glucose (UA) Urine Ketones Urine Blood Urine Nitrite Ur Leukocyte Esterase Urine RBC Urine WBC Ur Squamous Epith Cells Urine Bacteria Hyaline Casts U Random Total Protein Ur Random Sodium Urine Creatinine Stool Occult Blood Vancomycin Trough Random Vancomycin Ethyl Alcohol Blood Type Antibody Screen Crossmatch Narrative Narrative: Awake (eyes open) but unresponsive. Intubated and ventilated. ACVC+ 350ml x24 Fi02 30% PEEP5 PS 30 Airway Heart: RRR Lungs: Diminished BS bases Assessment and Plan Assessment Anesthesia Assessment: Chart Reviewed (Anesthesia plan discussed with family- father, mother, brother. Questions answered. They understand and agree with plan for anesthesia. Consent signed by father) Final Anesthetic Review Family History of Problems with Anesthesia: No History of Problems with Anesthesia: No NPO: Yes ASA Class: V Final Preanesthetic Review: No Changes in Pt Med Stat, Meds/Allgs Chart Reviewed, Consent Obtained/Reviewed and Anes Risks/Benef Reviewed Patient Risk: High Procedure Risk: Intermediate Anesthetic Plan Anesthetic Plan: GA Disposition: Inp. Admit - ICU
--- NOTE | 2023-04-09 14:51 | HO.SKINPHOTO ---
Location: coccyx Category: deep tissue injury 04/09/23 08:00 per wound nurse applied triad and foam dsg
--- NOTE | 2023-04-09 15:14 | PM.EVENT ---
Event Note Date of Service: 04/09/23 Event Note: CT scan reviewed - this shows the liver to be very enlarged, covering the entire stomach; also with overlying loops of transverse colon Patient therefore not a candidate PEG procedure - there was no window for accessing the stoma from the abdominal wall Will need open feeding tube placement Time Spent With Patient Time: Total time managing care of this patient today ____ minutes.
--- NOTE | 2023-04-09 15:40 | MHC.CM.PN ---
CM MET WITH PARENTS AT BEDSIDE. PT WILL BE SCHEDULED FOR FEEDING TUBE/TRACH PLACEMENT AND WILL REQUIRE SUBSEQUENT PLACEMENT AT AN LTACH ON DC. REFERRAL PLACED TO [facility]. PT IS WITHOUT A HCP/CONSERVATOR. FATHER IS WILLING TO TAKE OVER THESE TASKS. DIRECTOR OF CM, LEONA BLANCHARD MADE AWARE. CM WILL CONINUE TO FOLLOW FOR ANY CHANGE TO DC PLAN/NEEDS.
[2023-04-09 17:41] LABS: Glucose, Whole Blood 134 mg/dL (60-115)
--- NOTE | 2023-04-09 17:53 | PM.PNNEP ---
Subjective Subjective Date of Service: 04/09/23 Interval history: No events overnight. All recent data reviewed. D/W ICU Attending Physical Exam Vital Signs: Vital Signs: Last Vital Signs Temp 101.5 F H 04/09/23 17:00 Pulse 126 H 04/09/23 17:00 Resp 37 H 04/09/23 17:00 BP 109/61 04/09/23 17:00 Pulse Ox 95 04/09/23 17:00 O2 Del Method Mechanical Ventil ation 04/09/23 17:00 O2 Flow Rate 35 04/05/23 20:00 FiO2 30 04/09/23 17:00 BMI result Body Mass Index 32.7 Const: General: no acute distress Neck: Neck: Yes supple Resp: Auscultation: diminished lung sounds Cardio: Rate: regular rate GI: Palpation (GI): Soft to palpation Neuro: Other: On Vent Objective Data Labs 04/09/23 04:56 04/09/23 04:56 Labs: Laboratory Results - last 24 hr 04/08/23 04/08/23 04/09/23 17:51 23:45 04:56 WBC 9.5 RBC 2.43 L Hgb 7.3 L Hct 24.8 L MCV 102.1 H MCH 30.0 MCHC 29.4 L RDW TNP Plt Count 147 L MPV TNP Immature Gran % (Auto) 0.8 H Neut % (Auto) 75.6 H Lymph % (Auto) 10.0 L [place] % (Auto) 8.5 Eos % (Auto) 4.4 H Baso % (Auto) 0.7 Lymph # (Auto) 1.0 L [place] # (Auto) 0.8 Eos # (Auto) 0.4 Baso # (Auto) 0.1 Abs Immat Gran (auto) 0.08 H Absolute Neuts (auto) 7.2 Absolute Nucleated RBC 0.000 Nucleated RBC % (auto) 0.0 VBG pH VBG pCO2 VBG pO2 VBG HCO3 VBG O2 Saturation VBG Base Excess Sodium 156 H Potassium 4.6 Chloride 125 H Carbon Dioxide 21 L Anion Gap 15 BUN 58 H Creatinine 1.72 H Estim Creat Clear Calc 74.9 Estimated GFR 45 POC Glucose 159 H 136 H Random Glucose 155 H Calcium 9.7 Phosphorus 4.0 Magnesium 2.8 H Total Bilirubin 6.9 H AST 120 H ALT 52 H Alkaline Phosphatase 101 Total Protein 6.6 Albumin 3.2 L 04/09/23 04/09/23 04/09/23 05:02 12:11 17:37 WBC RBC Hgb Hct MCV MCH MCHC RDW Plt Count MPV Immature Gran % (Auto) Neut % (Auto) Lymph % (Auto) [place] % (Auto) Eos % (Auto) Baso % (Auto) Lymph # (Auto) [place] # (Auto) Eos # (Auto) Baso # (Auto) Abs Immat Gran (auto) Absolute Neuts (auto) Absolute Nucleated RBC Nucleated RBC % (auto) VBG pH 7.48 H VBG pCO2 28 VBG pO2 60 VBG HCO3 21 L VBG O2 Saturation 86.0 VBG Base Excess -1.4 Sodium Potassium Chloride Carbon Dioxide Anion Gap BUN Creatinine Estim Creat Clear Calc Estimated GFR POC Glucose 140 H 134 H Random Glucose Calcium Phosphorus Magnesium Total Bilirubin AST ALT Alkaline Phosphatase Total Protein Albumin Microbiology Microbiology Results: Microbiology 04/01/23 18:54 Blood - Venous Blood Culture - Final No growth after 5 days. 04/01/23 18:54 Blood - Venous Blood Culture - Final No growth after 5 days. 04/03/23 14:57 Gallbladder Gram Stain - Final 04/03/23 14:57 Gallbladder Routine Culture - Final No growth after 2 days 03/29/23 11:45 Sputum - Suctioned Gram Stain - Final 03/29/23 11:45 Sputum - Suctioned Sputum Culture - Final Staphylococcus aureus Escherichia coli 03/25/23 19:18 Blood - Venous Blood Culture - Final No growth after 5 days. 03/25/23 19:18 Blood - Venous Blood Culture - Final No growth after 5 days. 03/22/23 23:25 Blood - Venous Blood Culture - Final No growth after 5 days. 03/22/23 23:25 Blood - Venous Blood Culture - Final No growth after 5 days. Procedures Date of Service Date of Service: 04/09/23 Assessment & Plan Assessment and plan (1) TILA (acute kidney injury): Status: Acute Plan Acute kidney injury most likely due to ischemic ATN. Hypernatremia Renal function stable; Gets D5W as needed No indication for renal replacement Concur with rest of current supportive care Labs AM; Shall follow along Progress Note: Quality Stroke Does the patient have a stroke diagnosis?: No
--- NOTE | 2023-04-09 18:10 | PM.CCN ---
Critical Care Event Note Summary Date of Service: 04/09/23 Code activated: No Narrative: Notified by patient's RN and RT that ET tube cuff is blown with patient losing minute volume. Exchange of ET tube over bougie attempted and unsuccessful secondary to original tube migrating above the vocal cords. Patient reintubated with 8.0 cuffed ET tube under glide scope visualization with no immediate complications. ET tube position verified on chest x-ray. Critical Care Time (minutes): 30
--- NOTE | 2023-04-09 18:20 | PC.RT ---
RN called RT to report cont air leak from ETT. All air removed from ETT and introduced 1cc at a time until 10 cc were in, the cuff pressure was [id number]. At this time low vt noted. Dr. Hernandes notified. An exchange of ETT was performed where a 8.0 ett was introduced over a bougie. Cont air leak noted, the glidescope was then employed to reintubate. This was done with one attempt post optimizing spo2 with bag mask ventilation via 100% fio2. The ETT was affixed at [id number], a cxr was taken and examined by Dr. Hernandes. The ETT was still noted high and advanced to 30cm. A second cxr was taken and placement comfirmed by Dr. Hernandes. The pt was returned to [facility] ventilation at this time without further issue. RT comfirmed original ETT cuff had lost integrity. RN's present.
[2023-04-09] MEDS: propofoL 1,000 MG/100 ML VIAL 27.6 MG IVCONT (18:31)
--- NOTE | 2023-04-09 19:06 | PC.NURSE ---
17:40 Pt had audible ET tube cuff leak. Pressure checked, RT called to bedside 17:42 RT determined cuff pressure not maintaining, vent alarm for low exhaled volumes. Pt minute volumes decreased from 10.5 to 5.1. MD notified and called to bedside. Propofol gtt increased to 40 mcg/kg/min 17:48 Pt ET tube changed to 8.0 28@lip. Placement confirmed by colorimetric end tidal CO2. Old OG tube removed and new OG tube placed. 18:15 Placement of ET tube and OG tube confirmed by CXR. New oral core temp probe inserted. vent settings unchanged AC 24/350/5.0/30%
[2023-04-09 23:10] LABS: Glucose, Whole Blood 117 mg/dL (60-115)
[2023-04-10] VITALS (30 sets, daily range): BP systolic 114–144; BP diastolic 62–87; PULSE 97–114; RESP 17–42; TEMP 33.6–38.6; O2SAT 94–100; BMI 32.1
[2023-04-10] MEDS: propofoL 1,000 MG/100 ML VIAL 20.7 MG IVCONT ×3 (01:43→10:46)
[2023-04-10] MEDS: Thiamine HCL 200 MG in 0.9 % Sodium Chloride 100 ML 204 MG IV ×2 (03:31→15:57)
[2023-04-10 04:52] LABS: VBG Base Excess -2.6 mmol/L; VBG HCO3 20 mmol/L (22-26); VBG pCO2 26 mmHg; VBG pH 7.48 (7.32-7.43); VBG pO2 79 mmHg
[2023-04-10 05:03] LABS: MANUAL DIFF FLAG NO
[2023-04-10 05:08] LABS: Basophils Absolute Auto 0.1 X10*3/uL (0.0-0.2); Basophils Percent Auto 0.7 % (0-2); Eosinophils Absolute Auto 0.6 X10*3/uL (0.0-0.4); Eosinophils Percent Auto 4.9 % (0-4); Hematocrit 26.2 % (42.0-52.0); Hemoglobin 7.6 g/dl (14.0-18.0); Imm Gran Abs Auto 0.14 X10*3/uL (0.00-0.03); Imm Gran Pct Auto 1.2 % (0.0-0.4); Lymphocytes Absolute Auto 1.6 X10*3/uL (1.2-4.9); Lymphocytes Percent Auto 13.5 % (20-40); Mean Corpuscular Volume 103.6 fL (80.0-98.0); Monocytes Absolute Auto 0.9 X10*3/uL (0.1-1.2); Monocytes Percent Auto 7.2 % (2-11); Neutrophils Absolute Auto 8.7 x10*3/uL (2.0-8.3); Neutrophils Percent Auto 72.5 % (45-73); Platelet Count 183 X10*3/uL (160-400); Red Blood Count 2.53 X10*6/uL (4.60-5.80); Red Cell Distribution Width 29.4 % (11.0-16.0)
[2023-04-10 05:12] LABS: Venous Blood Gas Refer to POC result
[2023-04-10 05:23] LABS: Alanine Aminotransferase 54 U/L (0-40); Albumin Level 3.3 g/dL (3.5-5.0); Alkaline Phosphatase 114 U/L (39-117); Anion Gap 16 (12-20); Aspartate Amino Transferase 121 U/L (5-37); Bilirubin Total 6.9 mg/dL (0.0-1.0); Blood Urea Nitrogen 71 mg/dL (9-16); Calcium 9.6 mg/dL (8.4-10.2); Carbon Dioxide 19 mmol/L (22-29); Chloride 126 mmol/L (96-108); Creatinine Clr Calc Pharmacy 52.2; Estimated Glomerular Filt Rate 30; Glucose Random 106 mg/dL (60-115); Magnesium 3.1 mg/dL (1.6-2.6); Phosphorus 4.4 mg/dL (2.7-4.5); Potassium 4.2 mmol/L (3.3-5.1); Sodium 157 mmol/L (135-145); Total Protein 6.7 g/dL (6.5-8.0)
[2023-04-10] MEDS: Folic Acid 2 MG in 0.9 % Sodium Chloride 50 ML 100.4 MG IV (08:00)
--- NOTE | 2023-04-10 08:52 | P.PNCC_ITS ---
Subjective Subjective Date of Service: 04/10/23 Interval History: 37-year-old gentleman with underlying history of alcohol abuse, liver cirrhosis, bipolar disorder MDD admitted on 03/21/2023 with alcohol intoxication. Hospital course significant for abdominal pain for which patient was evaluated by General surgery on 03/22/2023 with no concern for cholecystitis. Further hospital stay complicated by cardiac arrest secondary to pulmonary aspiration of bilious gastric content with returned spontaneous circulation achieved after 3 around of CPR with patient intubated during the CPR and transferred to intensive care unit. In the intensive care unit patient required re-intubation with a large ET tube. OG drained approximately [address] L of bilious fluid. CT abdomen/ pelvis demonstrated dilated bowel loops with no definite transition point. Re- evaluated by General surgery with p.o. contrast noted in colon, thus no intervention warranted at that time. Continues with significant cephalopathy and poor arousal with sedation vacation. MRI brain on 03/28/2023 is essentially normal. Status post cholecystostomy on 04/03. Planned for tracheostomy and gastrostomy today. No events overnight. Critical Care Time (minutes): 60 Physical Exam 2 Vital Signs: Vital Signs: Last Vital Signs Temp 99.1 F 04/10/23 08:00 Pulse 101 H 04/10/23 08:00 Resp 24 H 04/10/23 08:00 BP 144/87 H 04/10/23 08:00 Pulse Ox 100 04/10/23 08:00 O2 Del Method Mechanical Ventil ation 04/10/23 08:00 O2 Flow Rate 35 04/05/23 20:00 FiO2 30 04/10/23 08:00 BMI result Body Mass Index 32.1 Const: General: no acute distress and other ( Sedated on the vent) Eyes: Sclerae: scleral abnormal ( icteric) EOM: EOMs intact bilaterally Neck: Neck: Yes no lymphadenopathy, Yes trachea midline and Yes supple Resp: Auscultation: clear to auscultation bilaterally Cardio: Rate: regular rate Rhythm: regular rhythm Heart sounds: no gallops, no murmurs and no rubs GI: Palpation (GI): Soft to palpation and Other GI palpation findings present ( Nontender) Auscultation: normal bowel sounds Extrem: General: Yes no pedal edema, No clubbing and No cyanosis Objective Data Labs 04/10/23 04:40 04/10/23 04:40 Labs: Laboratory Results - last 24 hr 04/09/23 04/09/23 04/09/23 12:11 17:37 23:04 WBC RBC Hgb Hct MCV MCH MCHC RDW Plt Count MPV Immature Gran % (Auto) Neut % (Auto) Lymph % (Auto) [place] % (Auto) Eos % (Auto) Baso % (Auto) Lymph # (Auto) [place] # (Auto) Eos # (Auto) Baso # (Auto) Abs Immat Gran (auto) Absolute Neuts (auto) Absolute Nucleated RBC Nucleated RBC % (auto) VBG pH VBG pCO2 VBG pO2 VBG HCO3 VBG O2 Saturation VBG Base Excess Sodium Potassium Chloride Carbon Dioxide Anion Gap BUN Creatinine Estim Creat Clear Calc Estimated GFR POC Glucose 140 H 134 H 117 H Random Glucose Calcium Phosphorus Magnesium Total Bilirubin AST ALT Alkaline Phosphatase Total Protein Albumin 04/10/23 04/10/23 04:40 04:46 WBC 12.0 H RBC 2.53 L Hgb 7.6 L Hct 26.2 L MCV 103.6 H MCH 30.0 MCHC 29.0 L RDW 29.4 H Plt Count 183 MPV TNP Immature Gran % (Auto) 1.2 H Neut % (Auto) 72.5 Lymph % (Auto) 13.5 L [place] % (Auto) 7.2 Eos % (Auto) 4.9 H Baso % (Auto) 0.7 Lymph # (Auto) 1.6 [place] # (Auto) 0.9 Eos # (Auto) 0.6 H Baso # (Auto) 0.1 Abs Immat Gran (auto) 0.14 H Absolute Neuts (auto) 8.7 H Absolute Nucleated RBC 0.000 Nucleated RBC % (auto) 0.0 VBG pH 7.48 H VBG pCO2 26 VBG pO2 79 VBG HCO3 20 L VBG O2 Saturation 96.0 VBG Base Excess -2.6 Sodium 157 H Potassium 4.2 Chloride 126 H Carbon Dioxide 19 L Anion Gap 16 BUN 71 H Creatinine 2.45 H Estim Creat Clear Calc 52.2 Estimated GFR 30 POC Glucose Random Glucose 106 Calcium 9.6 Phosphorus 4.4 Magnesium 3.1 H Total Bilirubin 6.9 H AST 121 H ALT 54 H Alkaline Phosphatase 114 Total Protein 6.7 Albumin 3.3 L Microbiology Microbiology Results: Microbiology 04/01/23 18:54 Blood - Venous Blood Culture - Final No growth after 5 days. 04/01/23 18:54 Blood - Venous Blood Culture - Final No growth after 5 days. 04/03/23 14:57 Gallbladder Gram Stain - Final 04/03/23 14:57 Gallbladder Routine Culture - Final No growth after 2 days 03/29/23 11:45 Sputum - Suctioned Gram Stain - Final 03/29/23 11:45 Sputum - Suctioned Sputum Culture - Final Staphylococcus aureus Escherichia coli 03/25/23 19:18 Blood - Venous Blood Culture - Final No growth after 5 days. 03/25/23 19:18 Blood - Venous Blood Culture - Final No growth after 5 days. 03/22/23 23:25 Blood - Venous Blood Culture - Final No growth after 5 days. 03/22/23 23:25 Blood - Venous Blood Culture - Final No growth after 5 days. Progress Note: A&P Assessment and plan (1) Ventilator dependent: Status: Acute (2) Cholecystitis: Status: Acute (3) Encephalopathy: Status: Acute (4) Aspiration of gastric contents: Status: Acute (5) Ileus: Status: Acute (6) Cardiopulmonary arrest with successful resuscitation: Status: Acute (7) Alcoholic liver disease: Status: Acute Plan Assessment: 37-year-old gentleman admitted with alcohol intoxication on the background of degree cirrhosis with hospital course complicated by cardiopulmonary arrest secondary to pulmonary aspiration secondary to underlying ileus Plan: Neuro: Hepatic encephalopathy, continue lactulose. Poor arousal with sedation vacation, though with slow incremental improvements, MRI brain normal on 03/28/2023. Cardiac: Cardiac arrest secondary to pulmonary aspiration. Continue to titrate off pressors as tolerated. 2D echo is normal. Pulmonary: Intubated during the CPR on the background of aspiration of gastric content. Planned for tracheostomy and gastrostomy today. Renal: acute kidney injury, non oliguric, improved. Nephrology evaluation requested. Continue to monitor renal indices and urine output. Endo: No acute issues. GI: Alcoholic liver cirrhosis with hyperbilirubinemia, improving. Ileus, now s/p neostigmine x3 with resolution of abdominal distension, now tolerating tube feeds. Cholecystitis status post cholecystostomy. General surgery and gastroenterology services care appreciated. ID: aspiration ppneumonia after aspiration of gastric contents. Treated for Staphylococcus aureus and E coli in sputum. Continue to monitor off antibiotics. Heme/Onc: No acute issues. Psych: No acute issues. Miscellaneous: No acute issues. Prophylaxis: Heparin, ppi Diet: tube feeds Critical care time spent: 60 minutes Quality Stroke Does the patient have a stroke diagnosis?: No VTE Prior VTE?: No VTE Risk Level:: Medical - moderate - high VTE Device Contraindication: N/A - Device Ordered VTE Drug Contraindication: Treatment Not Tolerated
[2023-04-10] MEDS: Dextrose 5 % 1,000 ML 200 ML IVCONT ×3 (08:59→21:26)
[2023-04-10] MEDS: Chlorhexidine Gluc Oral Rinse 15 ML MOUTHWASH BUCCAL ×3 (08:59→20:33)
[2023-04-10] MEDS: Lactulose 320 GM/480 ML SOLUTION 200 GM PR ×2 (09:00→22:15)
[2023-04-10] MEDS: Furosemide 40 MG/4 ML VIAL IVPUSH (09:05)
--- NOTE | 2023-04-10 10:18 | MHC.CLN ---
F/U DISCUSSED AT ROUNDS WITH MD PLAN FOR TRACH AND PEG TODAY PT PREVIOUSLY TOLERATING JEVITY 1.0 TF AT 50ML/HR IN ADDITION TO D5W WHEN TF NEEDED; RECOMMEND STARTING PROMOTE MAX GOAL RATE 75ML/HR WITH 240ML FREE WATER FLUSH Q 6 HRS TO PROVIDE 1800KCALS (22KCLAS/KG BASED ON IBW), 112G PROTEIN (1.4G/KG), 2470ML TOTAL FREE WATER FROM FORMULA AND FLUSHES (30ML/KG BASED ON IBW) START FORMULA AT 20ML/HR AND INCREASE BY 10ML Q 4 HRS UNTIL MAX GOAL IS ACHIEVED MONITOR TOLERANCE, RESIDUALS AND LYTES
[2023-04-10 12:00] LABS: Glucose, Whole Blood 101 mg/dL (60-115)
[2023-04-10 12:23] LABS: Anion Gap 17 (12-20); Blood Urea Nitrogen 76 mg/dL (9-16); Calcium 9.6 mg/dL (8.4-10.2); Carbon Dioxide 19 mmol/L (22-29); Chloride 124 mmol/L (96-108); Creatinine Clr Calc Pharmacy 56.6; Estimated Glomerular Filt Rate 33; Glucose Random 113 mg/dL (60-115); Potassium 3.7 mmol/L (3.3-5.1); Sodium 156 mmol/L (135-145)
--- NOTE | 2023-04-10 12:25 | PC.NURSE ---
report to md isabel and nurses from or at bedside in icu.
--- NOTE | 2023-04-10 14:05 | HO.WOUND ---
Wound Consult: Follow up 37yr old male admitted to [facility] on?03/21/23 16:30 - See progress notes and H&P for detailed history. Attempted follow up consultation for the Sacrococcygeal wound and Penis wound. At the time of arrival pt was off unit in the OR for PEG and Trach placement - will attempt re-assessment at future time and or date. Continue current topical orders in place. Recommendations: 1.Turn and Reposition every 2 hours and as needed for patient comfort continue use of wedges. 2. Off Load all bony prominences with use of pillows, wedges and heel boots - preventative foams when needed. 3. Monitor for incontinence and moisture control - Barrier cream to be used 4. Provide adequate and supplemental nutrition - Nutrition is following and recommendations in place. 5. Continue low air loss mattress and specialty mattress in place. 6. Sacrum - Cleanse with NS or PH balanced wipes, pat dry. Apply Triad layer to wound bed and surrounding tissue. Do not remove all of paste between applications as this may cause further damage to wound bed. Cover with foam dressing to aid in off loading and protection from friction. Change Daily and PRN 7. Penis - Cleanse with NS or PH balanced wipes, pat dry. Apply Triad layer to wound bed and surrounding tissue. Do not remove all of paste between applications as this may cause further damage to wound bed. Apply twice daily.
--- NOTE | 2023-04-10 14:09 | P.OP_ITS ---
Operative Note Operative Note Date of Service: 04/10/23 Narrative: Preoperative diagnosis: [] 1. Ventilatory dependence 2. Malnutrition Postop diagnosis: [] same Procedure [] 1.open jejunostomy feeding tube placement 2. Open tracheostomy tube placement Surgeon: [] [employer] Officer: [] Nico Type of Anesthesia: [] general Indication for surgery: [] patient is with ventilator dependent. He also requires enteral tube aaccess for nutrition. Preoperative CT scan and Intra operative findings demonstrated massive hepatomegaly, extending down to the umbilicus which precluded G-tube placement or PEG tube placement. Patient underwent open the jejunostomy feeding tube placement. Uneventful placement of 8. Portex tracheostomy tube Findings: [] patient brought to the operating room, placed on the operative table supine position, after adequate level of general anesthesia was induced, commencing with the feeding tube, the patient's abdomen which was markedly corpulent, distended, with marked hepatomegaly, was prepped and draped in usual sterile fashion. Using a small midline supraumbilical incision, this carried down through skin, subcutaneous tissue, linea alba. Posterior fascia and peritoneum were opened and extended along the length of the incision. The intra-abdominal findings were as noted above. Profound hepatomegaly extended down to the umbilicus level was encountered . Ligament Treitz was identified and proximal jejunum approximately 20 cm distal to this was chosen as the jejunostomy feeding tube site. A pursestring suture was made on the anti mesenteric border with 2-0 silk. Through a separate left upper quadrant stab wound incision, 22 Welsh Chavez catheter feeding tube was advanced into the abdominal cavity. Enterotomy was made at the pursestring suture site and catheter advanced distally. Pursestring suture was secured. Catheter was then witzeled using interrupted seromuscular 2-0 silk sutures. Feeding tube site was then pexyed to the abdominal wall using seromuscular to peritoneum 2-0 silk sutures. Catheter was flushed and enteral contents retrieved easily. Exit feeding tube site was secured to the skin using 2-0 nylon. Wound was irrigated, secured hemostasis, and closed by reapproximating the fascia using running 0 Maxon suture followed by interrupted inverted dermal 3-0 Vicryl sutures followed by Steri-Strips and sterile dressings. J-tube was plugged. The wound was infiltrated 0.5% Marcaine/ 1% lidocaine. Next, neck and chest were prepped and draped in usual sterile fashion with separate operative set, and a transverse incision was made approximately 1 fingerbreadth above the sternal notch carried down through skin, subcutaneous tissue, and cervical fascia. Linea cervicalis was opened and strap muscles retracted laterally. Trachea was identified and dissection down to the trachea was accomplished and trach hook was used to retract tracheal superiorly along with an 0 Vicryl stay suture and between the 2nd and 3rd ring, a traverse tracheotomy was made. ET tube was withdrawn to just above this site and an 8. long Portex tracheostomy tube was uneventfully advanced into the distal trachea. This was uneventfully connected to anesthesia circuit. Wound was irrigated, secured hemostasis, and tracheostomy tube was secured in place by suturing 0 silk to the the neck through the tracheostomy flange on both sides. Incision site was closed on either side of the tracheostomy tube using interrupted inverted dermal 3-0 Vicryl sutures. Velcro strap was then placed. Patient was ventilating well with good O2 saturation and end-tidal CO2. Sponge, needle, instrument counts reported correct. Patient tolerated the procedure well and emerged anesthesia stable condition. EBL minimal. Postprocedure chest x-ray is pending. al
[2023-04-10] MEDS: Acetaminophen 1,000 MG/100 ML PIGGYBACK 400 MG IV (14:44)
--- NOTE | 2023-04-10 15:43 | MHC.CM.PN ---
EMR REVIEWED AND PER MD ROUNDS, PT TO HAVE TRACH/G/TUBE PLACED TODAY. PRELIMINARY REFERRAL SENT TO [facility]. THEY ARE FOLLOWING. PT HAS NO HCP, [employer] PPW SIGNED BY MD AND SUBMITTED TO CM DIRECTOR TO BEGIN PROCESS. CM WILL CONTINUE TO FOLLOW FOR ANY CHANGE IN DC PLAN/NEEDS.
[2023-04-10] MEDS: Lactulose 20 GM/30 ML SOLUTION 30 GM PO (15:57)
--- NOTE | 2023-04-10 16:20 | P.PNNP_ITS ---
Subjective Subjective Date of Service: 04/10/23 Interval history: No events overnight.All recent data reviewed. D/W ICU Attending Physical Exam 2 Vital Signs: Vital Signs: Last Vital Signs Temp 97.4 F 04/10/23 14:38 Pulse 100 04/10/23 15:00 Resp 21 H 04/10/23 15:00 BP 126/76 04/10/23 15:00 Pulse Ox 96 04/10/23 15:00 O2 Del Method Mechanical Ventil ation 04/10/23 15:00 O2 Flow Rate 35 04/05/23 20:00 FiO2 30 04/10/23 15:24 BMI result Body Mass Index 32.1 Const: General: no acute distress Neck: Neck: Yes supple Resp: Auscultation: diminished lung sounds Cardio: Rate: regular rate GI: Palpation (GI): Soft to palpation Neuro: Other: Sedated Extrem: General: Yes no pedal edema Objective Data Labs 04/10/23 04:40 04/10/23 11:57 Labs: Laboratory Results - last 24 hr 04/09/23 04/09/23 04/10/23 17:37 23:04 04:40 WBC 12.0 H RBC 2.53 L Hgb 7.6 L Hct 26.2 L MCV 103.6 H MCH 30.0 MCHC 29.0 L RDW 29.4 H Plt Count 183 MPV TNP Immature Gran % (Auto) 1.2 H Neut % (Auto) 72.5 Lymph % (Auto) 13.5 L Robertson % (Auto) 7.2 Eos % (Auto) 4.9 H Baso % (Auto) 0.7 Lymph # (Auto) 1.6 Robertson # (Auto) 0.9 Eos # (Auto) 0.6 H Baso # (Auto) 0.1 Abs Immat Gran (auto) 0.14 H Absolute Neuts (auto) 8.7 H Absolute Nucleated RBC 0.000 Nucleated RBC % (auto) 0.0 VBG pH VBG pCO2 VBG pO2 VBG HCO3 VBG O2 Saturation VBG Base Excess Sodium 157 H Potassium 4.2 Chloride 126 H Carbon Dioxide 19 L Anion Gap 16 BUN 71 H Creatinine 2.45 H Estim Creat Clear Calc 52.2 Estimated GFR 30 POC Glucose 134 H 117 H Random Glucose 106 Calcium 9.6 Phosphorus 4.4 Magnesium 3.1 H Total Bilirubin 6.9 H AST 121 H ALT 54 H Alkaline Phosphatase 114 Total Protein 6.7 Albumin 3.3 L Blood Type Antibody Screen 04/10/23 04/10/23 04/10/23 04:46 11:57 12:46 WBC RBC Hgb Hct MCV MCH MCHC RDW Plt Count MPV Immature Gran % (Auto) Neut % (Auto) Lymph % (Auto) Robertson % (Auto) Eos % (Auto) Baso % (Auto) Lymph # (Auto) Robertson # (Auto) Eos # (Auto) Baso # (Auto) Abs Immat Gran (auto) Absolute Neuts (auto) Absolute Nucleated RBC Nucleated RBC % (auto) VBG pH 7.48 H VBG pCO2 26 VBG pO2 79 VBG HCO3 20 L VBG O2 Saturation 96.0 VBG Base Excess -2.6 Sodium 156 H Potassium 3.7 Chloride 124 H Carbon Dioxide 19 L Anion Gap 17 BUN 76 H Creatinine 2.24 H Estim Creat Clear Calc 56.6 Estimated GFR 33 POC Glucose 101 Random Glucose 113 Calcium 9.6 Phosphorus Magnesium Total Bilirubin AST ALT Alkaline Phosphatase Total Protein Albumin Blood Type O Positive Antibody Screen NEGATIVE Microbiology Microbiology Results: Microbiology 04/01/23 18:54 Blood - Venous Blood Culture - Final No growth after 5 days. 04/01/23 18:54 Blood - Venous Blood Culture - Final No growth after 5 days. 04/03/23 14:57 Gallbladder Gram Stain - Final 04/03/23 14:57 Gallbladder Routine Culture - Final No growth after 2 days 03/29/23 11:45 Sputum - Suctioned Gram Stain - Final 03/29/23 11:45 Sputum - Suctioned Sputum Culture - Final Staphylococcus aureus Escherichia coli 03/25/23 19:18 Blood - Venous Blood Culture - Final No growth after 5 days. 03/25/23 19:18 Blood - Venous Blood Culture - Final No growth after 5 days. 03/22/23 23:25 Blood - Venous Blood Culture - Final No growth after 5 days. 03/22/23 23:25 Blood - Venous Blood Culture - Final No growth after 5 days. Procedures Date of Service Date of Service: 04/10/23 Assessment & Plan Assessment and plan (1) TILA (acute kidney injury): Status: Acute Plan Acute kidney injury most likely due to ischemic ATN. Hypernatremia Renal function stable; Has significant free water deficit On D5W as ordered No indication for renal replacement Concur with rest of current supportive care Labs AM; Shall follow along Time Spent With Patient Time: . Progress Note: Quality Stroke Does the patient have a stroke diagnosis?: No
[2023-04-10] MEDS: 0.9 % Sodium Chloride Flush 3 ML SYRINGE IVFLUSH (17:09)
[2023-04-10 18:49] LABS: Glucose, Whole Blood 111 mg/dL (60-115)
[2023-04-10] MEDS: HYDROmorphone HCl 0.5 MG/0.5 ML SYRINGE IVPUSH (20:33)
[2023-04-10] MEDS: Heparin Sodium,Porcine 5,000 UNIT/ML VIAL 5000 UNIT SUBCUT (20:33)
[2023-04-10 23:53] LABS: Glucose, Whole Blood 133 mg/dL (60-115)
[2023-04-11] VITALS (31 sets, daily range): BP systolic 96–131; BP diastolic 49–78; PULSE 102–118; RESP 20–48; TEMP 34.2–39.1; O2SAT 95–100; BMI 32.1
[2023-04-11] MEDS: Thiamine HCL 200 MG in 0.9 % Sodium Chloride 100 ML 204 MG IV (03:04)
[2023-04-11 05:11] LABS: VBG Base Excess -4.9 mmol/L; VBG HCO3 18 mmol/L (22-26); VBG pCO2 27 mmHg; VBG pH 7.42 (7.32-7.43); VBG pO2 71 mmHg
[2023-04-11 05:13] LABS: Venous Blood Gas Refer to POC result
[2023-04-11] MEDS: Heparin Sodium,Porcine 5,000 UNIT/ML VIAL 5000 UNIT SUBCUT ×3 (05:15→20:28)
[2023-04-11] MEDS: Pantoprazole Sodium 40 MG/10 ML VIAL IVPUSH (05:16)
[2023-04-11 05:21] LABS: Basophils Percent Auto 0.2 % (0-2); Eosinophils Absolute Auto 0.8 X10*3/uL (0.0-0.4); Eosinophils Percent Auto 5.8 % (0-4); Hematocrit 26.5 % (42.0-52.0); Hemoglobin 8.1 g/dl (14.0-18.0); Imm Gran Abs Auto 0.14 X10*3/uL (0.00-0.03); Lymphocytes Absolute Auto 1.4 X10*3/uL (1.2-4.9); Lymphocytes Percent Auto 9.9 % (20-40); MANUAL DIFF FLAG SCAN; Mean Corpuscular HGB Conc 30.6 g/dl (31.0-36.0); Mean Corpuscular Hemoglobin 30.6 pg (27.0-33.0); Monocytes Absolute Auto 0.5 X10*3/uL (0.1-1.2); Monocytes Percent Auto 3.5 % (2-11); Neutrophils Absolute Auto 11.1 x10*3/uL (2.0-8.3); Neutrophils Percent Auto 79.6 % (45-73); Platelet Count 195 X10*3/uL (160-400); Red Blood Count 2.65 X10*6/uL (4.60-5.80); Red Cell Distribution Width 27.8 % (11.0-16.0); SCAN SMEAR FLAG 1; White Blood Count 13.9 X10*3/uL (4.8-10.8)
[2023-04-11 05:33] LABS: Alanine Aminotransferase 62 U/L (0-40); Albumin Level 3.2 g/dL (3.5-5.0); Alkaline Phosphatase 123 U/L (39-117); Anion Gap 18 (12-20); Aspartate Amino Transferase 133 U/L (5-37); Bilirubin Total 7.3 mg/dL (0.0-1.0); Blood Urea Nitrogen 81 mg/dL (9-16); Calcium 9.1 mg/dL (8.4-10.2); Carbon Dioxide 18 mmol/L (22-29); Chloride 120 mmol/L (96-108); Creatinine Clr Calc Pharmacy 49.3; Estimated Glomerular Filt Rate 28; Glucose Random 106 mg/dL (60-115); Magnesium 2.8 mg/dL (1.6-2.6); Phosphorus 5.2 mg/dL (2.7-4.5); Sodium 152 mmol/L (135-145); Total Protein 6.8 g/dL (6.5-8.0)
[2023-04-11 05:46] LABS: SLIDE REVIEW VERIFIED
[2023-04-11] MEDS: 0.9 % Sodium Chloride Flush 3 ML SYRINGE IVFLUSH ×3 (07:10→23:58)
[2023-04-11] MEDS: Chlorhexidine Gluc Oral Rinse 15 ML MOUTHWASH BUCCAL ×3 (07:10→20:28)
[2023-04-11] MEDS: HYDROmorphone HCl 0.5 MG/0.5 ML SYRINGE IVPUSH (07:30)
[2023-04-11] MEDS: Dextrose 5 % 1,000 ML 250 ML IVCONT ×3 (08:25→16:19)
--- NOTE | 2023-04-11 09:35 | P.PNCC_ITS ---
Subjective Subjective Date of Service: 04/11/23 Interval History: 37-year-old gentleman with underlying history of alcohol abuse, liver cirrhosis, bipolar disorder MDD admitted on 03/21/2023 with alcohol intoxication. Hospital course significant for abdominal pain for which patient was evaluated by General surgery on 03/22/2023 with no concern for cholecystitis. Further hospital stay complicated by cardiac arrest secondary to pulmonary aspiration of bilious gastric content with returned spontaneous circulation achieved after 3 around of CPR with patient intubated during the CPR and transferred to intensive care unit. In the intensive care unit patient required re-intubation with a large ET tube. OG drained approximately 1 L of bilious fluid. CT abdomen/ pelvis demonstrated dilated bowel loops with no definite transition point. Re- evaluated by General surgery with p.o. contrast noted in colon, thus no intervention warranted at that time. Continues with significant cephalopathy and poor arousal with sedation vacation. MRI brain on 03/28/2023 is essentially normal. Status post cholecystostomy on 04/03. Status post tracheostomy and jejunostomy on 04/10/2023. No events overnight. Critical Care Time (minutes): 60 Physical Exam 2 Vital Signs: Vital Signs: Last Vital Signs Temp 99.2 F 04/11/23 09:00 Pulse 109 H 04/11/23 09:00 Resp 20 04/11/23 09:00 BP 116/63 04/11/23 09:00 Pulse Ox 97 04/11/23 09:00 O2 Del Method Trach Collar 04/11/23 09:00 O2 Flow Rate 8 04/11/23 09:00 FiO2 30 04/11/23 08:00 BMI result Body Mass Index 32.1 Const: General: no acute distress Eyes: Sclerae: scleral abnormal (icteric) EOM: EOMs intact bilaterally Neck: Neck: Yes no lymphadenopathy and Yes tracheostomy present (on tracheal collar) Resp: Effort & Inspection: normal respiratory effort and no respiratory distress Auscultation: clear to auscultation bilaterally Cardio: Rate: tachycardic Rhythm: regular rhythm Heart sounds: no gallops, no murmurs and no rubs GI: Palpation (GI): Soft to palpation and Other GI palpation findings present ( Nontender) Auscultation: normal bowel sounds Extrem: General: Yes no pedal edema, No clubbing and No cyanosis Objective Data Labs 04/11/23 04:47 04/11/23 04:47 Labs: Laboratory Results - last 24 hr 04/10/23 04/10/23 04/10/23 11:57 12:46 18:46 WBC RBC Hgb Hct MCV MCH MCHC RDW Plt Count MPV Immature Gran % (Auto) Neut % (Auto) Lymph % (Auto) Perkins % (Auto) Eos % (Auto) Baso % (Auto) Lymph # (Auto) Perkins # (Auto) Eos # (Auto) Baso # (Auto) Abs Immat Gran (auto) Absolute Neuts (auto) Absolute Nucleated RBC Nucleated RBC % (auto) Smear Tech's Comments VBG pH VBG pCO2 VBG pO2 VBG HCO3 VBG O2 Saturation VBG Base Excess Sodium 156 H Potassium 3.7 Chloride 124 H Carbon Dioxide 19 L Anion Gap 17 BUN 76 H Creatinine 2.24 H Estim Creat Clear Calc 56.6 Estimated GFR 33 POC Glucose 101 111 Random Glucose 113 Calcium 9.6 Phosphorus Magnesium Total Bilirubin AST ALT Alkaline Phosphatase Total Protein Albumin Blood Type O Positive Antibody Screen NEGATIVE 04/10/23 04/11/23 04/11/23 23:50 04:47 05:05 WBC 13.9 H RBC 2.65 L Hgb 8.1 L Hct 26.5 L MCV 100.0 H MCH 30.6 MCHC 30.6 L RDW 27.8 H Plt Count 195 MPV Not Reportable Immature Gran % (Auto) 1.0 H Neut % (Auto) 79.6 H Lymph % (Auto) 9.9 L Perkins % (Auto) 3.5 Eos % (Auto) 5.8 H Baso % (Auto) 0.2 Lymph # (Auto) 1.4 Perkins # (Auto) 0.5 Eos # (Auto) 0.8 H Baso # (Auto) 0.0 Abs Immat Gran (auto) 0.14 H Absolute Neuts (auto) 11.1 H Absolute Nucleated RBC 0.000 Nucleated RBC % (auto) 0.0 Smear Tech's Comments VERIFIED VBG pH 7.42 VBG pCO2 27 VBG pO2 71 VBG HCO3 18 L VBG O2 Saturation 91.0 VBG Base Excess -4.9 Sodium 152 H Potassium 4.0 Chloride 120 H Carbon Dioxide 18 L Anion Gap 18 BUN 81 H Creatinine 2.57 H Estim Creat Clear Calc 49.3 Estimated GFR 28 POC Glucose 133 H Random Glucose 106 Calcium 9.1 Phosphorus 5.2 H Magnesium 2.8 H Total Bilirubin 7.3 H AST 133 H ALT 62 H Alkaline Phosphatase 123 H Total Protein 6.8 Albumin 3.2 L Blood Type Antibody Screen Microbiology Microbiology Results: Microbiology 04/01/23 18:54 Blood - Venous Blood Culture - Final No growth after 5 days. 04/01/23 18:54 Blood - Venous Blood Culture - Final No growth after 5 days. 04/03/23 14:57 Gallbladder Gram Stain - Final 04/03/23 14:57 Gallbladder Routine Culture - Final No growth after 2 days 03/29/23 11:45 Sputum - Suctioned Gram Stain - Final 03/29/23 11:45 Sputum - Suctioned Sputum Culture - Final Staphylococcus aureus Escherichia coli 03/25/23 19:18 Blood - Venous Blood Culture - Final No growth after 5 days. 03/25/23 19:18 Blood - Venous Blood Culture - Final No growth after 5 days. 03/22/23 23:25 Blood - Venous Blood Culture - Final No growth after 5 days. 03/22/23 23:25 Blood - Venous Blood Culture - Final No growth after 5 days. Progress Note: A&P Assessment and plan (1) Encephalopathy: Status: Acute (2) Aspiration of gastric contents: Status: Acute (3) TILA (acute kidney injury): Status: Acute (4) Hyperbilirubinemia: Status: Acute (5) Ileus: Status: Acute (6) Aspiration into airway: Status: Acute (7) Cardiopulmonary arrest with successful resuscitation: Status: Acute (8) Liver cirrhosis: Status: Acute Plan Assessment: 37-year-old gentleman admitted with alcohol intoxication on the background of degree cirrhosis with hospital course complicated by cardiopulmonary arrest secondary to pulmonary aspiration secondary to underlying ileus Plan: Neuro: Hepatic encephalopathy, continue lactulose. Poor arousal with sedation vacation, though with slow incremental improvements, MRI brain normal on 03/28/2023. Cardiac: Cardiac arrest secondary to pulmonary aspiration. Continue to titrate off pressors as tolerated. 2D echo is normal. Pulmonary: Intubated during the CPR on the background of aspiration of gastric content. Status post tracheostomy and jejunostomy on 04/10/2023. Renal: acute kidney injury, non oliguric. Nephrology service care appreciated. Continue to monitor renal indices and urine output. Endo: No acute issues. GI: Alcoholic liver cirrhosis with hyperbilirubinemia, improving. Ileus, now s/p neostigmine x3 with resolution of abdominal distension, now tolerating tube feeds. Cholecystitis status post cholecystostomy. General surgery and gastroenterology services care appreciated. ID: aspiration ppneumonia after aspiration of gastric contents. Treated for Staphylococcus aureus and E coli in sputum. Continue to monitor off antibiotics. Heme/Onc: No acute issues. Psych: No acute issues. Miscellaneous: No acute issues. Prophylaxis: Heparin, ppi Diet: tube feeds Critical care time spent: 60 minutes Quality Stroke Does the patient have a stroke diagnosis?: No VTE Prior VTE?: No VTE Risk Level:: Medical - moderate - high VTE Device Contraindication: N/A - Device Ordered VTE Drug Contraindication: Treatment Not Tolerated
--- NOTE | 2023-04-11 09:36 | P.CDIM_ITS ---
PROVIDER RESPONSE TEXT: To clarify, the appropriate diagnosis supported by the clinical indicators: No nutritional deficiency QUERY TEXT: PHYSICIAN'S DOCUMENTATION REQUEST Date of Query: 04/11/2023 08:38 AM EST Patient Name: Nelson López Admit Date: 03/21/2023 Dear Taj Hernandes, A review of the medical record indicates additional documentation may be needed. Please review below and update the documentation accordingly. Documentation in the Operative Note 04/10/23 includes the diagnosis of Ventilatory dependence, Malnutr ition. Jejunostomy feeding tube placed Additional clinical indicators from the record include: Per Clinical Nutrition Assessment 03/25/23: Body fat well nourished Muscle mass well nourished Obese Inadequate oral intake related to change in GI tract motility To ensure the quality of the medical record, based on the above information and the recognized standa rd for (specify malnutrition severity), could you please verify which of the following diagnoses best reflects the pa tient's nutritional status. Mild protein calorie malnutrition is/was present and is a clinical diagnosis (please include addition al support in the medical record) No nutritional deficiency Moderate protein calorie malnutrition is/was present and is a clinical diagnosis (please include kaden tional support in the medical record) Severe protein calorie malnutrition is/was present and is a clinical diagnosis (please include additi onal support in the medical record) Other (explain) Clinically unable to determine (explain) Thank you, Lurdes Graf RN Use of terms such as suspected, likely, concern for, or probable (associated with a specific diagnosi s that is being evaluated, monitored, or treated as if it exists) are acceptable and can be coded in the inpatient se tting, when documented at the time of discharge. Please use your independent medical judgment in providing your response. THIS QUERY IS PART OF THE PERMANENT MEDICAL RECORD
[2023-04-11 09:49] LABS: VBG Base Excess -5.6 mmol/L; VBG HCO3 18 mmol/L (22-26); VBG pCO2 28 mmHg; VBG pO2 75 mmHg
[2023-04-11 09:49] LABS: Venous Blood Gas Refer to POC result
--- NOTE | 2023-04-11 10:19 | MHC.CLN ---
F/U PT WITH J TUBE AND TRACH PLACED YESTERDAY RECOMMEND JEVITY 1.0 AT MAX GOAL RATE 75ML/HR AND 240ML FREE WATER FLUSHES Q 6 HRS TO PROVIDE 1908KCALS (23.5KCALS/KG), 80G PROTEIN (.98G/KG), 2463ML TOTAL WATER FROM FORMULA AND FLUSHES (30ML/KG BASED ON IBW) MONITOR TOLERANCE AND LYTES DO NOT CHECK RESIDUALS WITH J TUBE
--- NOTE | 2023-04-11 10:45 | PM.CCPN ---
Subjective Subjective Interval History: This is a 37-year-old man with a past medical history of alcohol abuse, liver cirrhosis, bipolar disorder, major depressive disorder, and was admitted on 03/21/23 for acute alcohol intoxication. The patient was admitted to medicine for abdominal pain which was evaluated by general surgery one day later with no acute findings. The hospital state was complicated by a cardiac arrest secondary to aspiration of bilious contents. ROSC was achieved after three rounds of CPR. The patient was subsequently intubated and transferred to the intensive care unit on 03/22. A CT scan of the abdomen and pelvis demonstrated dilated bowel loops with no transition point. An MRI of the brain on 03/28 was essentially normal. Patient was found to have suspected cholecystitis on ultrasound and CT. Patient status post cholecystostomy tube on 04/03 by IR. EEG on 04/04 was negative for seizure activity. PO contrast on 04/09 showed no bowel obstruction. Decision was made by the patients family for Trach and j tube placement which successfully occurred on 04/10. The patient still has suspected encephalopathy and continues to have minimal arousal with sedation vacations. Comment: 45 Physical Exam Vital Signs: Vital Signs: Last Vital Signs Temp 102.7 F H 04/12/23 09:00 Pulse 125 H 04/12/23 09:00 Resp 38 H 04/12/23 09:00 BP 123/55 L 04/12/23 09:00 Pulse Ox 94 04/12/23 09:00 O2 Del Method Mechanical Ventil ation 04/12/23 09:00 O2 Flow Rate 8 04/11/23 14:00 FiO2 30 04/12/23 09:00 BMI result Body Mass Index 31.5 Const: General: no acute distress and lethargic Orientation/consciousness: lethargic Limitations: altered mental status HEENT: Head: Yes normocephalic and Yes atraumatic Mouth: moist mucous membranes Eyes: Conjunctivae: conjunctivae normal Sclerae: scleral abnormal (icteric) Pupils: Equal, round and reactive pupils present EOM: EOM abnormal (does not track) Neck: Other: trach collar in place, c/d/i Neck: Yes trachea midline and Yes no JVD Resp: Other: vented, inspiratory rhonchi B/L, diminished bases Cardio: Rate: tachycardic Rhythm: regular rhythm Heart sounds: S1 normal heart sound present and S2 normal heart sound present GI: Inspection: Yes distended and Yes J-tube present (supraumbilical dsg c/d/i) Palpation (GI): Hepatomegaly present Auscultation: normoactive bowel sounds Skin: General skin exam: no rashes or lesions noted and other (sacral wound dsg c/d/i) Neuro: Other: sedated, has a cough with no gag reflex Cranial nerves: Yes Equal, round and reactive pupils present Extrem: Other: no cyanosis, +2 pulses B/L in upper and lower ext, +2 edema in B/L lower extremeties Objective Data Labs 04/12/23 05:33 04/12/23 05:33 Labs: Laboratory Results - last 24 hr 04/11/23 04/11/23 04/11/23 11:33 17:43 23:45 WBC RBC Hgb Hct MCV MCH MCHC RDW Plt Count MPV Immature Gran % (Auto) Neut % (Auto) Lymph % (Auto) [place] % (Auto) Eos % (Auto) Baso % (Auto) Lymph # (Auto) [place] # (Auto) Eos # (Auto) Baso # (Auto) Abs Immat Gran (auto) Absolute Neuts (auto) Absolute Nucleated RBC Nucleated RBC % (auto) Smear Tech's Comments VBG pH VBG pCO2 VBG pO2 VBG HCO3 VBG O2 Saturation VBG Base Excess Sodium Potassium Chloride Carbon Dioxide Anion Gap BUN Creatinine Estim Creat Clear Calc Estimated GFR POC Glucose 109 137 H 120 H Random Glucose Calcium Phosphorus Magnesium Total Bilirubin AST ALT Alkaline Phosphatase Total Protein Albumin 04/12/23 04/12/23 04/12/23 05:33 05:35 05:51 WBC 14.8 H RBC 2.63 L Hgb 7.9 L Hct 26.1 L MCV 99.2 H MCH 30.0 MCHC 30.3 L RDW 27.3 H Plt Count 190 MPV Not Reportable Immature Gran % (Auto) 1.1 H Neut % (Auto) 77.4 H Lymph % (Auto) 12.6 L [place] % (Auto) 2.6 Eos % (Auto) 6.1 H Baso % (Auto) 0.2 Lymph # (Auto) 1.9 [place] # (Auto) 0.4 Eos # (Auto) 0.9 H Baso # (Auto) 0.0 Abs Immat Gran (auto) 0.17 H Absolute Neuts (auto) 11.5 H Absolute Nucleated RBC 0.000 Nucleated RBC % (auto) 0.0 Smear Tech's Comments VERIFIED VBG pH 7.41 VBG pCO2 24 VBG pO2 52 VBG HCO3 15 L VBG O2 Saturation 78.0 VBG Base Excess -7.5 Sodium 146 H Potassium 4.4 Chloride 116 H Carbon Dioxide 15 L Anion Gap 19 BUN 99 H Creatinine 3.64 H Estim Creat Clear Calc 34.5 Estimated GFR 19 POC Glucose 125 H Random Glucose 130 H Calcium 8.6 Phosphorus 5.6 H Magnesium 3.1 H Total Bilirubin 7.2 H AST 137 H ALT 71 H Alkaline Phosphatase 144 H Total Protein 6.5 Albumin 3.2 L Microbiology Microbiology Results: Microbiology 04/01/23 18:54 Blood - Venous Blood Culture - Final No growth after 5 days. 04/01/23 18:54 Blood - Venous Blood Culture - Final No growth after 5 days. 04/03/23 14:57 Gallbladder Gram Stain - Final 04/03/23 14:57 Gallbladder Routine Culture - Final No growth after 2 days 03/29/23 11:45 Sputum - Suctioned Gram Stain - Final 03/29/23 11:45 Sputum - Suctioned Sputum Culture - Final Staphylococcus aureus Escherichia coli 03/25/23 19:18 Blood - Venous Blood Culture - Final No growth after 5 days. 03/25/23 19:18 Blood - Venous Blood Culture - Final No growth after 5 days. 03/22/23 23:25 Blood - Venous Blood Culture - Final No growth after 5 days. 03/22/23 23:25 Blood - Venous Blood Culture - Final No growth after 5 days. Progress Note: A&P Assessment and plan Plan Neurologic: Patient has encephalopathy secondary to hepatic disease.The patient is on propofol at 40 mg/ hr and is receiving daily sedation vacations.The patient is receiving lactulose 30 g PO. Patient was evaluated by neurology on 04/04 and an EEG was performed which was benign. Patient is now ventilator dependent. Cardiovascular: status post hypoxic cardiac arrest with hypertension however this issue has resolved. The patient has been tachycardic with normal sinus rhythm with rates in the low 100s. 2D Echo demonstrated no abnormalities with an EF of approx. 70%. The patient has a triple lumen access in the right IJ due to poor peripheral access. Respiratory: patient had an episode of hypoxic cardiac arrest secondary to aspiration with subsequent aspiration pneumonia. The patient is currently intubated and ventilated on PC witha RR 16, tV around 480, peep of 5, and FiO2 of 30%. Patient was treated for their aspiration pneumonia and has since then resolved. Patient had a trach placed without difficulty on 04/10 and is being followed by general surgery. CXR on 04/09 and 04/10 to assess trach placement demonstrated additional L sided pleural effusion which we will monitor clinical status and serial CXR?s. The patient has had daily unsuccessful weaning trials due to vent dyssynchrony. We will continue wean attempts. Gastrointestinal: patient had an ileus of unknown origin. Patient also has severe liver disease evidenced on CT scan showing hepatic steatosis, hepatomegaly, splenomegaly and portal hypertension. Ammonia was elevated at 100 on 04/01 but is now at 59 as of 04/03. We have also calculated a MELD score and have determined a 30% 90 day mortality for the patient. Separately the patient was found to have gall bladder sludge and stones on a saravia scan and ultrasound on 04/02. IR was consulted and successfully placed a drain on 04/03 draining bilious content. A CT on 04/09 showed massive hepatomegaly which covered the stomach and transverse colon. Due to this, general surgery was unable to place a j tube and decided to place a J tube via open approach. This was successfully done on 04/10 and the patient is set to start tube feedings today. The supraumbilical incision is well healed and will continue to be monitored especially given the patients malnourished state. Renal/Genitourinary: the patient has a resolving renal insufficiency that is non-oliguric. The patient has been followed by nephrology, please see their note for further details and recommendations. Patient is no longer receiving Bumex. Patient is hypernatremic and hypercholeremic at 152 and 120 respectively due to NaCl excess. Has been switched to D5 for free water deficit. BUN of 81, creat. of 2.7. No recs for dialysis as of yet. UOP of 0.5 mg/kg/hr. Continue to monitor output closely Hematology: patient currently has a microcytic hypoochromic anemia however it is suspected that it is from nutritional deficiencies. Patient receiving folic acid. Pt INR at 1.7 as of today. No evidence of bleeding during oral care. Will continue to monitor for bleeding diathesis. Dermatology. Patient has sacral deep tissue injury. Wound care was consulted and has seen and evaluated the patient. Please see note for details. Will continue to offload area. Infectious disease: patient had aspiration pneumonia which has since been resolved. Acute cholecystitis resolved with sweetie tube. Has had fever spikes every day, waxes and wanes. Has 1000 mg tylenol order PRN however will need to monitor amount given hepatic disease. Patient still has a leukocytosis. No infectious process suspected at this time as this is likely due to post op status. Patient is receiving cefepime for broad spectrum coverage in the case of any potential infection. Psych: No acute issues at this time. Prophylaxis: DVT prophylaxis with SCD?s. Holding anticoagulation due to anemia and prior bleeding tendencies. Pantoprazole discontinued for resumption of feedings. Quality Stroke Does the patient have a stroke diagnosis?: No VTE Prior VTE?: No VTE Risk Level:: Medical - moderate - high VTE Device Contraindication: N/A - Device Ordered VTE Drug Contraindication: Treatment Not Tolerated
[2023-04-11 11:38] LABS: Glucose, Whole Blood 109 mg/dL (60-115)
[2023-04-11] MEDS: Lactulose 20 GM/30 ML SOLUTION 30 GM PO ×3 (12:33→20:28)
--- NOTE | 2023-04-11 12:45 | PM.PNTS ---
Subjective Subjective Date of Service: 04/11/23 Interval history: Uneventful evening status post tracheostomy and J-tube placement 04/10 Physical Exam Vital Signs: Vital Signs: Last Vital Signs Temp 99.8 F 04/11/23 11:00 Pulse 111 H 04/11/23 11:00 Resp 36 H 04/11/23 11:00 BP 120/71 04/11/23 11:00 Pulse Ox 98 04/11/23 11:00 O2 Del Method Trach Collar 04/11/23 11:00 O2 Flow Rate 8 04/11/23 11:00 FiO2 30 04/11/23 08:00 BMI result Body Mass Index 32.1 Chest: Other: Patient ventilating well. Trach site clean dry and intact GI: Other: Feeding tube site dressing clean dry and intact Procedures Date of Service Date of Service: 04/11/23 Progress Note: A&P Assessment and plan (1) Malnutrition: Status: Acute (2) Ventilator dependent: Status: Acute Plan Uneventful postop. May use feeding tube. Time Spent With Patient Time: Total time managing care of this patient today ____ minutes. Quality Stroke Does the patient have a stroke diagnosis?: No VTE Prior VTE?: No VTE Risk Level:: Medical - moderate - high VTE Device Contraindication: N/A - Device Ordered VTE Drug Contraindication: Treatment Not Tolerated
--- NOTE | 2023-04-11 13:43 | HO.POSTANES ---
Post Anesthesia Evaluation Post Anesthesia Evaluation Date of Service: 04/11/23 Vital Signs: Vital Signs Temp Pulse Resp BP Pulse Ox O2 Del Method O2 Flow Rate 04/11/23 13:00 99.3 F 108 H 40 H 103/52 L 95 Trach Collar 8 04/11/23 12:00 110 H 124/70 95 Trach Collar 8 04/11/23 11:00 99.8 F 111 H 36 H 120/71 98 Trach Collar 8 04/11/23 10:00 99.0 F 109 H 48 H 112/62 98 Trach Collar 8 04/11/23 09:00 99.2 F 109 H 20 116/63 97 Trach Collar 8 04/11/23 08:05 24 H 04/11/23 08:00 99.3 F 110 H 23 H 120/66 96 Mechanical Ventilation 04/11/23 08:00 04/11/23 07:30 44 H 04/11/23 07:00 99.2 F 102 H 27 H 123/73 100 Mechanical Ventilation 04/11/23 06:00 98.8 F 107 H 22 H 130/78 98 Mechanical Ventilation 04/11/23 05:00 99.2 F 106 H 31 H 131/75 98 Mechanical Ventilation 04/11/23 04:42 04/11/23 04:00 99.7 F 107 H 32 H 129/72 98 Mechanical Ventilation 04/11/23 04:00 04/11/23 03:00 100.5 F H 110 H 25 H 126/72 99 Mechanical Ventilation 04/11/23 02:00 100.6 F H 108 H 30 H 115/57 L 99 Mechanical Ventilation FiO2 04/11/23 13:00 40 04/11/23 12:00 40 04/11/23 11:00 04/11/23 10:00 04/11/23 09:00 04/11/23 08:05 04/11/23 08:00 30 04/11/23 08:00 30 04/11/23 07:30 04/11/23 07:00 30 04/11/23 06:00 30 04/11/23 05:00 30 04/11/23 04:42 30 04/11/23 04:00 30 04/11/23 04:00 30 04/11/23 03:00 30 04/11/23 02:00 30 Anesthesia: General Endotracheal-GETA (trach) Mental Status: Sedated Pain Control: Satisfactory Nausea/Vomiting: None Hydration: Adequate Anesthesia-Related Issues: No Anes. Related Issues
--- NOTE | 2023-04-11 15:30 | MHC.CM.PN ---
Pt is POD 1 from a J tube and trach placement. Clinical updates remitted to [facility] for LTAC transition. Guardianship and conservatorship being pursued with pt's father being named as agent. Family in to visit and updated on above. CM to follow for transfer.
[2023-04-11] MEDS: Acetaminophen 1,000 MG/100 ML PIGGYBACK 400 MG IV (15:40)
[2023-04-11 17:52] LABS: Glucose, Whole Blood 137 mg/dL (60-115)
[2023-04-11 23:51] LABS: Glucose, Whole Blood 120 mg/dL (60-115)
[2023-04-12] VITALS (47 sets, daily range): BP systolic 71–145; BP diastolic 23–75; PULSE 101–129; RESP 35–54; TEMP 34.6–39.6; O2SAT 89–100; BMI 31.5
[2023-04-12] MEDS: Acetaminophen Oral Liquid 650 MG/20.3 ML SOLUTION G-TUBE ×2 (02:52→14:31)
[2023-04-12] MEDS: Heparin Sodium,Porcine 5,000 UNIT/ML VIAL 5000 UNIT SUBCUT ×3 (04:29→20:54)
[2023-04-12] MEDS: dexmedeTOMIDidine HCL/NS 400 MCG/100 ML INFUS..BTL 26.85 MCG IVCONT (04:42)
[2023-04-12] MEDS: fentaNYL citrate/PF 100 MCG/2 ML VIAL 50 MCG IVPUSH ×2 (05:39→23:24)
[2023-04-12 05:41] LABS: VBG Base Excess -7.5 mmol/L; VBG HCO3 15 mmol/L (22-26); VBG pCO2 24 mmHg; VBG pH 7.41 (7.32-7.43); VBG pO2 52 mmHg
[2023-04-12 05:42] LABS: Venous Blood Gas Refer to POC result
[2023-04-12 05:55] LABS: Glucose, Whole Blood 125 mg/dL (60-115)
[2023-04-12 06:06] LABS: Hemoglobin 7.9 g/dl (14.0-18.0); Imm Gran Abs Auto 0.17 X10*3/uL (0.00-0.03); Imm Gran Pct Auto 1.1 % (0.0-0.4); MANUAL DIFF FLAG SCAN; SCAN SMEAR FLAG 1
[2023-04-12 06:08] LABS: Basophils Percent Auto 0.2 % (0-2); Eosinophils Absolute Auto 0.9 X10*3/uL (0.0-0.4); Eosinophils Percent Auto 6.1 % (0-4); Hematocrit 26.1 % (42.0-52.0); Lymphocytes Absolute Auto 1.9 X10*3/uL (1.2-4.9); Lymphocytes Percent Auto 12.6 % (20-40); Mean Corpuscular HGB Conc 30.3 g/dl (31.0-36.0); Mean Corpuscular Volume 99.2 fL (80.0-98.0); Monocytes Absolute Auto 0.4 X10*3/uL (0.1-1.2); Monocytes Percent Auto 2.6 % (2-11); Neutrophils Absolute Auto 11.5 x10*3/uL (2.0-8.3); Neutrophils Percent Auto 77.4 % (45-73); Platelet Count 190 X10*3/uL (160-400); Red Blood Count 2.63 X10*6/uL (4.60-5.80); Red Cell Distribution Width 27.3 % (11.0-16.0); White Blood Count 14.8 X10*3/uL (4.8-10.8)
[2023-04-12 06:10] LABS: PLT ABN DIST 1
[2023-04-12] MEDS: Norepinephrine Bitartrate/D5W 8 MG/250 ML PLAST..BAG 9.89 MG IV (06:15)
[2023-04-12 06:20] LABS: Alanine Aminotransferase 71 U/L (0-40); Albumin Level 3.2 g/dL (3.5-5.0); Alkaline Phosphatase 144 U/L (39-117); Anion Gap 19 (12-20); Aspartate Amino Transferase 137 U/L (5-37); Bilirubin Total 7.2 mg/dL (0.0-1.0); Blood Urea Nitrogen 99 mg/dL (9-16); Calcium 8.6 mg/dL (8.4-10.2); Carbon Dioxide 15 mmol/L (22-29); Chloride 116 mmol/L (96-108); Creatinine Clr Calc Pharmacy 34.5; Estimated Glomerular Filt Rate 19; Glucose Random 130 mg/dL (60-115); Magnesium 3.1 mg/dL (1.6-2.6); Phosphorus 5.6 mg/dL (2.7-4.5); Potassium 4.4 mmol/L (3.3-5.1); Sodium 146 mmol/L (135-145); Total Protein 6.5 g/dL (6.5-8.0)
[2023-04-12 06:44] LABS: SLIDE REVIEW VERIFIED
[2023-04-12] MEDS: Chlorhexidine Gluc Oral Rinse 15 ML MOUTHWASH BUCCAL ×3 (08:47→20:53)
[2023-04-12] MEDS: 0.9 % Sodium Chloride Flush 3 ML SYRINGE IVFLUSH ×2 (08:47→20:54)
[2023-04-12] MEDS: Lactulose 20 GM/30 ML SOLUTION 30 GM PO ×4 (08:47→20:53)
[2023-04-12] MEDS: Albumin Human 25 % 100 ML IV ×3 (08:47→19:17)
[2023-04-12] MEDS: Folic Acid 2 MG in 0.9 % Sodium Chloride 50 ML 100.4 MG IV (09:20)
--- NOTE | 2023-04-12 09:41 | P.PNCC_ITS ---
Subjective Subjective Date of Service: 04/12/23 Interval History: 37-year-old gentleman with underlying history of alcohol abuse, liver cirrhosis, bipolar disorder MDD admitted on 03/21/2023 with alcohol intoxication. Hospital course significant for abdominal pain for which patient was evaluated by General surgery on 03/22/2023 with no concern for cholecystitis. Further hospital stay complicated by cardiac arrest secondary to pulmonary aspiration of bilious gastric content with returned spontaneous circulation achieved after 3 around of CPR with patient intubated during the CPR and transferred to intensive care unit. In the intensive care unit patient required re-intubation with a large ET tube. OG drained approximately [address] of bil[address] fluid. CT abdomen/ pelvis demonstrated dilated bowel loops with no definite transition point. Re- evaluated by General surgery with p.o. contrast noted in colon, thus no intervention warranted at that time. Continues with significant cephalopathy and poor arousal with sedation vacation. MRI brain on 03/28/2023 is essentially normal. Status post cholecystostomy on 04/03. Status post tracheostomy and jejunostomy on 04/10/2023. No events overnight. Critical Care Time (minutes): 60 Physical Exam 2 Vital Signs: Vital Signs: Last Vital Signs Temp 102.7 F H 04/12/23 09:00 Pulse 125 H 04/12/23 09:00 Resp 38 H 04/12/23 09:00 BP 123/55 L 04/12/23 09:00 Pulse Ox 94 04/12/23 09:00 O2 Del Method Mechanical Ventil ation 04/12/23 09:00 O2 Flow Rate 8 04/11/23 14:00 FiO2 30 04/12/23 09:00 BMI result Body Mass Index 31.5 Const: General: no acute distress Eyes: Sclerae: scleral abnormal (icteric) EOM: EOMs intact bilaterally Neck: Neck: Yes no lymphadenopathy, Yes trachea midline and Yes supple Resp: Auscultation: clear to auscultation bilaterally Cardio: Rate: tachycardic Rhythm: regular rhythm Heart sounds: no gallops, no murmurs and no rubs GI: Palpation (GI): Soft to palpation and Other GI palpation findings present ( Nontender) Auscultation: normal bowel sounds Extrem: General: No clubbing, No cyanosis and Yes edema (1+ bilateral) Objective Data Labs 04/12/23 05:33 04/12/23 05:33 Labs: Laboratory Results - last 24 hr 04/11/23 04/11/23 04/11/23 09:45 11:33 17:43 WBC RBC Hgb Hct MCV MCH MCHC RDW Plt Count MPV Immature Gran % (Auto) Neut % (Auto) Lymph % (Auto) [place] % (Auto) Eos % (Auto) Baso % (Auto) Lymph # (Auto) [place] # (Auto) Eos # (Auto) Baso # (Auto) Abs Immat Gran (auto) Absolute Neuts (auto) Absolute Nucleated RBC Nucleated RBC % (auto) Smear Tech's Comments VBG pH 7.40 VBG pCO2 28 VBG pO2 75 VBG HCO3 18 L VBG O2 Saturation 93.0 VBG Base Excess -5.6 Sodium Potassium Chloride Carbon Dioxide Anion Gap BUN Creatinine Estim Creat Clear Calc Estimated GFR POC Glucose 109 137 H Random Glucose Calcium Phosphorus Magnesium Total Bilirubin AST ALT Alkaline Phosphatase Total Protein Albumin 04/11/23 04/12/23 04/12/23 23:45 05:33 05:35 WBC 14.8 H RBC 2.63 L Hgb 7.9 L Hct 26.1 L MCV 99.2 H MCH 30.0 MCHC 30.3 L RDW 27.3 H Plt Count 190 MPV Not Reportable Immature Gran % (Auto) 1.1 H Neut % (Auto) 77.4 H Lymph % (Auto) 12.6 L [place] % (Auto) 2.6 Eos % (Auto) 6.1 H Baso % (Auto) 0.2 Lymph # (Auto) 1.9 [place] # (Auto) 0.4 Eos # (Auto) 0.9 H Baso # (Auto) 0.0 Abs Immat Gran (auto) 0.17 H Absolute Neuts (auto) 11.5 H Absolute Nucleated RBC 0.000 Nucleated RBC % (auto) 0.0 Smear Tech's Comments VERIFIED VBG pH 7.41 VBG pCO2 24 VBG pO2 52 VBG HCO3 15 L VBG O2 Saturation 78.0 VBG Base Excess -7.5 Sodium 146 H Potassium 4.4 Chloride 116 H Carbon Dioxide 15 L Anion Gap 19 BUN 99 H Creatinine 3.64 H Estim Creat Clear Calc 34.5 Estimated GFR 19 POC Glucose 120 H Random Glucose 130 H Calcium 8.6 Phosphorus 5.6 H Magnesium 3.1 H Total Bilirubin 7.2 H AST 137 H ALT 71 H Alkaline Phosphatase 144 H Total Protein 6.5 Albumin 3.2 L 04/12/23 05:51 WBC RBC Hgb Hct MCV MCH MCHC RDW Plt Count MPV Immature Gran % (Auto) Neut % (Auto) Lymph % (Auto) [place] % (Auto) Eos % (Auto) Baso % (Auto) Lymph # (Auto) [place] # (Auto) Eos # (Auto) Baso # (Auto) Abs Immat Gran (auto) Absolute Neuts (auto) Absolute Nucleated RBC Nucleated RBC % (auto) Smear Tech's Comments VBG pH VBG pCO2 VBG pO2 VBG HCO3 VBG O2 Saturation VBG Base Excess Sodium Potassium Chloride Carbon Dioxide Anion Gap BUN Creatinine Estim Creat Clear Calc Estimated GFR POC Glucose 125 H Random Glucose Calcium Phosphorus Magnesium Total Bilirubin AST ALT Alkaline Phosphatase Total Protein Albumin Microbiology Microbiology Results: Microbiology 04/01/23 18:54 Blood - Venous Blood Culture - Final No growth after 5 days. 04/01/23 18:54 Blood - Venous Blood Culture - Final No growth after 5 days. 04/03/23 14:57 Gallbladder Gram Stain - Final 04/03/23 14:57 Gallbladder Routine Culture - Final No growth after 2 days 03/29/23 11:45 Sputum - Suctioned Gram Stain - Final 03/29/23 11:45 Sputum - Suctioned Sputum Culture - Final Staphylococcus aureus Escherichia coli 03/25/23 19:18 Blood - Venous Blood Culture - Final No growth after 5 days. 03/25/23 19:18 Blood - Venous Blood Culture - Final No growth after 5 days. 03/22/23 23:25 Blood - Venous Blood Culture - Final No growth after 5 days. 03/22/23 23:25 Blood - Venous Blood Culture - Final No growth after 5 days. Progress Note: A&P Assessment and plan (1) Ventilator dependent: Status: Acute (2) Cholecystitis: Status: Acute (3) Encephalopathy: Status: Acute (4) Aspiration of gastric contents: Status: Acute (5) Hyperbilirubinemia: Status: Acute (6) Ileus: Status: Acute (7) Aspiration into airway: Status: Acute (8) Cardiopulmonary arrest with successful resuscitation: Status: Acute (9) Liver cirrhosis: Status: Acute Plan Assessment: 37-year-old gentleman admitted with alcohol intoxication on the background of degree cirrhosis with hospital course complicated by cardiopulmonary arrest secondary to pulmonary aspiration secondary to underlying ileus Plan: Neuro: Hepatic encephalopathy, continue lactulose. Poor arousal with sedation vacation, though with slow incremental improvements, MRI brain normal on 03/28/2023. Cardiac: Cardiac arrest secondary to pulmonary aspiration. Continue to titrate off pressors as tolerated. 2D echo is normal. Pulmonary: Intubated during the CPR on the background of aspiration of gastric content. Status post tracheostomy and jejunostomy on 04/10/2023. On/off ventilatory support/tracheal collar. Renal: acute kidney injury, non oliguric. Nephrology service care appreciated. Continue to monitor renal indices and urine output. Endo: No acute issues. GI: Alcoholic liver cirrhosis with hyperbilirubinemia, improving. Ileus, now s/p neostigmine x3 with resolution of abdominal distension, now tolerating tube feeds. Cholecystitis status post cholecystostomy. General surgery and gastroenterology services care appreciated. ID: aspiration ppneumonia after aspiration of gastric contents. Treated for Staphylococcus aureus and E coli in sputum. Now with rising white cell count, will start on empiric cefepime. Heme/Onc: No acute issues. Psych: No acute issues. Miscellaneous: No acute issues. Prophylaxis: Heparin, ppi Diet: tube feeds Critical care time spent: 60 minutes Quality Stroke Does the patient have a stroke diagnosis?: No VTE Prior VTE?: No VTE Risk Level:: Medical - moderate - high VTE Device Contraindication: N/A - Device Ordered VTE Drug Contraindication: Treatment Not Tolerated
--- NOTE | 2023-04-12 10:04 | MHC.CLN ---
F/U PT WITH J TUBE AND TRACH PLACED YESTERDAY REVIEWED LABS; SERUM NA IMPROVING S/P 3 L D5W PT RECEIVING JEVITY 1.0 AT MAX GOAL RATE 75ML/HR AND 240ML FREE WATER FLUSHES Q 6 HRS TO PROVIDE 1908KCALS (23.5KCALS/KG), 80G PROTEIN (.98G/KG), 2463ML TOTAL WATER FROM FORMULA AND FLUSHES (30ML/KG BASED ON IBW) MONITOR TOLERANCE AND LYTES DO NOT CHECK RESIDUALS WITH J TUBE
[2023-04-12] MEDS: cefEPime HCl 1 GM in 0.9 % Sodium Chloride 50 ML IV (10:14)
[2023-04-12] MEDS: Lactated Ringers 1,000 ML 999 ML IV ×2 (10:14→11:55)
[2023-04-12] MEDS: Thiamine HCL 200 MG in 0.9 % Sodium Chloride 100 ML 204 MG IV (11:30)
[2023-04-12 12:14] LABS: Glucose, Whole Blood 108 mg/dL (60-115)
--- NOTE | 2023-04-12 12:44 | HO.WOUND ---
Wound Consult: Follow up 37yr old male admitted to [facility] on?03/21/23 16:30 - See progress notes and H&P for detailed history. Wound consult follow up for Sacral wound. Pt remains ICU level of care, complex hospital course including cardiac arrest on 03/22/23, ventilatory support, Acute Renal Insufficiency due to Ischemia, and encephalopathy. The wound located at the sacrum pictured below is likely caused in part by Ischemia and has progressed to an Unstageable Pressure Injury. 04/04/23 Assessment 04/12/23 Todays assessment Sacrum Etiology: Unstageable Pressure Inury Measurements: 6.2cm x 2cm x 0.2cm Wound Bed: Necrotic yellow foley leather like adherent slough Drainage / Odor: None noted at the time of my assessment dressing was already removed and wound cleansed Edges: ? Irregular [place] wound: ? Scattered areas of dark purple / necrotic intact tissue No Odor, No Induration, No Fluctuance noted - mild erythema noted - remains blanchable Goals of Treatment: ? Off Load Pressure - Santyl for enzymatic debridement - continue to use all preventative measures in place (Currently in place - KAILA mattress, Off Loading with pillows and wedges - Nutrition recommendations in place and following. Urinary and fecal containment devices in place along with disposable dry flow pads in place. 04/04/23 04/12/23 todays assessment Penis Etiology: Device related Mucosal Pressure Injury - resurfacing Wound Bed: partial thickness tissue loss - resolving wound Drainage / Odor: None noted Edges: ? attached / macerated [place] wound: ? Intact No Odor, No Induration, No Fluctuance noted Goals of Treatment: ?Device since removed - Condom cath in use - skin prep applied to act as barrier to moisture Inpatient wound care nurse will continue to follow. Recommendations: 1.Turn and Reposition every 2 hours and as needed for patient comfort continue use of wedges. 2. Off Load all bony prominences with use of pillows, wedges and heel boots - preventative foams when needed. 3. Monitor for incontinence and moisture control - Barrier cream to be used 4. Provide adequate and supplemental nutrition - Nutrition is following and recommendations in place. 5. Continue low air loss mattress and specialty mattress in place. 6. Sacrum - Off Load Pressure - Cleanse with normal saline, pat dry. ?Apply barrier to the immediate marichuy wound, apply thick layer of Santyl to entire wound bed, cover with xeroform, secure foam dressing, change Daily. 7. Penis - Cleanse with routine bathing apply skin prep to penis tip prior to condom cath application.
[2023-04-12] MEDS: Collagenase Clostridium Hist. 30 GM TUBE 1 APPL TOPICAL (14:28)
--- NOTE | 2023-04-12 15:48 | MHC.CM.PN ---
Court date for guardianship/conservatorship: 04/23 at 2:30pm. Pt has been referred to [facility] for LTAC needs.
[2023-04-12] MEDS: Midazolam HCl/PF 2 MG/2 ML VIAL IVPUSH (16:58)
[2023-04-12 17:46] LABS: Glucose, Whole Blood 145 mg/dL (60-115)
--- NOTE | 2023-04-12 18:57 | PC.NURSE ---
Assumed care at 0645. Pt continued to be off sedation; +cough; PERRLA, +pain response where pt flinches his extremities and opens eyes with care; does not track; spontaneously moves his legs infrequently; does not follow commands; MD aware. Pt titrated off IV Levophed gtt (see MAR). Pt received 2 L LR for TILA per Md's order; after the completion of IVF, trialled on trach collar per plan; pt did not tolerate where he became tachypneic and hypotensive; he was put back on the Vent. Pt back on IV Levophed gtt. Pt's RR improved from high 50s to low 40s. At approximately 1630, pt started to make a gasping noise with every breath; suctioned unchanged amount of thick copious cream inline secretions, with no improvemnet in the sound; unable to suction mouth since pt clenches with care; RT at bedside, suctioned again with short lived improvement to the sound; MD called to bedside. Per order, pt received one time 2mg IVP Versed to clear the secretions through nasopharynx; issue resolved. Pt has been on AC settings of 16/350/5/30%, satting appropriately with RR in the 40s, MD aware of this. Trach care provided as needed, dressing changed PRN. ST in the 120s throughout the shift, MD aware. Pt received Lactulose per order and draining good amount of loose brown stool in the fecal management system with some leakage around, incontinence care provided as needed. Receiving TF at goal, tolerating well. Pt voiding in the [place] (See I&O). Pt's wound care provided and dressings changed per Wound nurse's recommendation who came to assess them while pt was being bathed. Santyl applied to alginate gauze and covered with foam dressing to the unstageable PI to the coccyx. Per Wound nurse, wound to penis improving; [place] catheter changed. Febrile at 103.1, PO tylenol given per order with minimal effect, ice bath given and now on cooling blanket, temp improved to 101.7. Family visiting at bedside, updated and all questions answered. Will continue with plan of care.
--- NOTE | 2023-04-12 19:04 | P.PNNP_ITS ---
Subjective Subjective Date of Service: 04/12/23 Interval history: Events noted. All recent data reviewed Physical Exam 2 Vital Signs: Vital Signs: Last Vital Signs Temp 101.7 F H 04/12/23 18:00 Pulse 121 H 04/12/23 18:00 Resp 43 H 04/12/23 18:00 BP 112/54 L 04/12/23 18:00 Pulse Ox 93 04/12/23 18:00 O2 Del Method Mechanical Ventil ation 04/12/23 18:00 O2 Flow Rate 10 04/12/23 14:00 FiO2 30 04/12/23 18:00 BMI result Body Mass Index 31.5 Const: General: no acute distress Neck: Other: Trach + Resp: Auscultation: diminished lung sounds Cardio: Rate: regular rate GI: Palpation (GI): Soft to palpation Skin: General skin exam: no rashes or lesions noted Neuro: Other: On Vent by trach Objective Data Labs 04/12/23 05:33 04/12/23 05:33 Labs: Laboratory Results - last 24 hr 04/11/23 04/12/23 04/12/23 23:45 05:33 05:35 WBC 14.8 H RBC 2.63 L Hgb 7.9 L Hct 26.1 L MCV 99.2 H MCH 30.0 MCHC 30.3 L RDW 27.3 H Plt Count 190 MPV Not Reportable Immature Gran % (Auto) 1.1 H Neut % (Auto) 77.4 H Lymph % (Auto) 12.6 L [place] % (Auto) 2.6 Eos % (Auto) 6.1 H Baso % (Auto) 0.2 Lymph # (Auto) 1.9 [place] # (Auto) 0.4 Eos # (Auto) 0.9 H Baso # (Auto) 0.0 Abs Immat Gran (auto) 0.17 H Absolute Neuts (auto) 11.5 H Absolute Nucleated RBC 0.000 Nucleated RBC % (auto) 0.0 Smear Tech's Comments VERIFIED VBG pH 7.41 VBG pCO2 24 VBG pO2 52 VBG HCO3 15 L VBG O2 Saturation 78.0 VBG Base Excess -7.5 Sodium 146 H Potassium 4.4 Chloride 116 H Carbon Dioxide 15 L Anion Gap 19 BUN 99 H Creatinine 3.64 H Estim Creat Clear Calc 34.5 Estimated GFR 19 POC Glucose 120 H Random Glucose 130 H Calcium 8.6 Phosphorus 5.6 H Magnesium 3.1 H Total Bilirubin 7.2 H AST 137 H ALT 71 H Alkaline Phosphatase 144 H Total Protein 6.5 Albumin 3.2 L 04/12/23 04/12/23 04/12/23 05:51 12:10 17:43 WBC RBC Hgb Hct MCV MCH MCHC RDW Plt Count MPV Immature Gran % (Auto) Neut % (Auto) Lymph % (Auto) [place] % (Auto) Eos % (Auto) Baso % (Auto) Lymph # (Auto) [place] # (Auto) Eos # (Auto) Baso # (Auto) Abs Immat Gran (auto) Absolute Neuts (auto) Absolute Nucleated RBC Nucleated RBC % (auto) Smear Tech's Comments VBG pH VBG pCO2 VBG pO2 VBG HCO3 VBG O2 Saturation VBG Base Excess Sodium Potassium Chloride Carbon Dioxide Anion Gap BUN Creatinine Estim Creat Clear Calc Estimated GFR POC Glucose 125 H 108 145 H Random Glucose Calcium Phosphorus Magnesium Total Bilirubin AST ALT Alkaline Phosphatase Total Protein Albumin Microbiology Microbiology Results: Microbiology 04/01/23 18:54 Blood - Venous Blood Culture - Final No growth after 5 days. 04/01/23 18:54 Blood - Venous Blood Culture - Final No growth after 5 days. 04/03/23 14:57 Gallbladder Gram Stain - Final 04/03/23 14:57 Gallbladder Routine Culture - Final No growth after 2 days 03/29/23 11:45 Sputum - Suctioned Gram Stain - Final 03/29/23 11:45 Sputum - Suctioned Sputum Culture - Final Staphylococcus aureus Escherichia coli 03/25/23 19:18 Blood - Venous Blood Culture - Final No growth after 5 days. 03/25/23 19:18 Blood - Venous Blood Culture - Final No growth after 5 days. 03/22/23 23:25 Blood - Venous Blood Culture - Final No growth after 5 days. 03/22/23 23:25 Blood - Venous Blood Culture - Final No growth after 5 days. Procedures Date of Service Date of Service: 04/12/23 Assessment & Plan Assessment and plan (1) TILA (acute kidney injury): Status: Acute Plan Acute kidney injury most likely due to ischemic ATN. Hypernatremia Renal function fairly stable; Has significant free water deficit On D5W as ordered No indication for renal replacement Concur with rest of current supportive care Labs AM; Shall follow along Progress Note: Quality Stroke Does the patient have a stroke diagnosis?: No
[2023-04-12] MEDS: propofoL 1,000 MG/100 ML VIAL 18.99 MG IVCONT (19:16)
[2023-04-12] MEDS: propofoL 1,000 MG/100 ML VIAL 25.32 MG IVCONT (23:11)
[2023-04-12 23:33] LABS: Glucose, Whole Blood 144 mg/dL (60-115)
[2023-04-13] VITALS (35 sets, daily range): BP systolic 104–141; BP diastolic 41–92; PULSE 105–120; RESP 40–50; TEMP 35–39.4; O2SAT 90–98; BMI 32.9
[2023-04-13] MEDS: Albumin Human 25 % 100 ML IV (01:46)
[2023-04-13] MEDS: propofoL 1,000 MG/100 ML VIAL 25.32 MG IVCONT ×7 (03:08→23:59)
[2023-04-13] MEDS: Acetaminophen Oral Liquid 650 MG/20.3 ML SOLUTION PO (04:16)
[2023-04-13] MEDS: Heparin Sodium,Porcine 5,000 UNIT/ML VIAL 5000 UNIT SUBCUT (04:17)
[2023-04-13] MEDS: diphenhydrAMINE HCL 50 MG/ML VIAL 25 MG IVPUSH (05:05)
[2023-04-13] MEDS: Norepinephrine Bitartrate/D5W 8 MG/250 ML PLAST..BAG 13.85 MG IV ×2 (05:10→20:42)
[2023-04-13 05:37] LABS: VBG Base Excess -11.3 mmol/L; VBG HCO3 12 mmol/L (22-26); VBG pCO2 19 mmHg; VBG pH 7.38 (7.32-7.43); VBG pO2 62 mmHg
[2023-04-13 05:40] LABS: Venous Blood Gas Refer to POC result
[2023-04-13 06:03] LABS: Basophils Percent Auto 0.2 % (0-2); Eosinophils Percent Auto 5.5 % (0-4); Hematocrit 23.2 % (42.0-52.0); Imm Gran Abs Auto 0.31 X10*3/uL (0.00-0.03); Imm Gran Pct Auto 1.7 % (0.0-0.4); Lymphocytes Absolute Auto 2.1 X10*3/uL (1.2-4.9); Lymphocytes Percent Auto 11.5 % (20-40); MANUAL DIFF FLAG SCAN; Mean Corpuscular HGB Conc 29.3 g/dl (31.0-36.0); Mean Corpuscular Hemoglobin 30.2 pg (27.0-33.0); Mean Corpuscular Volume 103.1 fL (80.0-98.0); Monocytes Absolute Auto 0.5 X10*3/uL (0.1-1.2); Monocytes Percent Auto 2.9 % (2-11); NRBC Pct Auto 0.2 /100WBC (0.0-0.2); Neutrophils Absolute Auto 14.1 x10*3/uL (2.0-8.3); Neutrophils Percent Auto 78.2 % (45-73); PLT CLUMP 1; Red Blood Count 2.25 X10*6/uL (4.60-5.80); Red Cell Distribution Width 26.5 % (11.0-16.0); SCAN SMEAR FLAG 1
[2023-04-13 06:05] LABS: Hemoglobin 6.8 g/dl (14.0-18.0)
[2023-04-13 06:17] LABS: Alanine Aminotransferase 93 U/L (0-40); Albumin Level 3.8 g/dL (3.5-5.0); Alkaline Phosphatase 135 U/L (39-117); Anion Gap 22 (12-20); Aspartate Amino Transferase 163 U/L (5-37); Bilirubin Total 7.5 mg/dL (0.0-1.0); Blood Urea Nitrogen 114 mg/dL (9-16); Calcium 8.8 mg/dL (8.4-10.2); Carbon Dioxide 13 mmol/L (22-29); Chloride 118 mmol/L (96-108); Creatinine Clr Calc Pharmacy 27.2; Estimated Glomerular Filt Rate 14; Glucose Random 139 mg/dL (60-115); Magnesium 3.3 mg/dL (1.6-2.6); Phosphorus 6.9 mg/dL (2.7-4.5); Potassium 4.5 mmol/L (3.3-5.1); Sodium 148 mmol/L (135-145); Total Protein 6.9 g/dL (6.5-8.0)
[2023-04-13 06:55] LABS: SLIDE REVIEW VERIFIED
[2023-04-13] MEDS: cefEPime HCl 1 GM in 0.9 % Sodium Chloride 50 ML IV (07:25)
[2023-04-13] MEDS: methylPREDNISolone Sod Succ 40 MG/ML VIAL IVPUSH (07:32)
[2023-04-13] MEDS: Bumetanide 1 MG/4 ML VIAL IVPUSH (07:33)
[2023-04-13] MEDS: 0.9 % Sodium Chloride Flush 3 ML SYRINGE IVFLUSH ×3 (07:34→20:04)
[2023-04-13] MEDS: Lactulose 20 GM/30 ML SOLUTION 30 GM PO ×3 (07:34→20:03)
[2023-04-13] MEDS: Collagenase Clostridium Hist. 30 GM TUBE 1 APPL TOPICAL (07:34)
[2023-04-13] MEDS: Chlorhexidine Gluc Oral Rinse 15 ML MOUTHWASH BUCCAL ×3 (07:34→20:03)
[2023-04-13] MEDS: Thiamine HCL 200 MG in 0.9 % Sodium Chloride 100 ML 204 MG IV (07:39)
[2023-04-13] MEDS: Sodium Bicarbonate 8.4% 150 MEQ in Dextrose 5 % 850 ML 100 MEQ IV ×2 (08:14→17:58)
[2023-04-13] MEDS: Folic Acid 2 MG in 0.9 % Sodium Chloride 50 ML 100.4 MG IV (09:59)
--- NOTE | 2023-04-13 11:47 | P.PNCC_ITS ---
Subjective Subjective Date of Service: 04/13/23 Interval History: 37-year-old gentleman with underlying history of alcohol abuse, liver cirrhosis, bipolar disorder MDD admitted on 03/21/2023 with alcohol intoxication. Hospital course significant for abdominal pain for which patient was evaluated by General surgery on 03/22/2023 with no concern for cholecystitis. Further hospital stay complicated by cardiac arrest secondary to pulmonary aspiration of bilious gastric content with returned spontaneous circulation achieved after 3 around of CPR with patient intubated during the CPR and transferred to intensive care unit. In the intensive care unit patient required re-intubation with a large ET tube. OG drained approximately 1 L of bilious fluid. CT abdomen/ pelvis demonstrated dilated bowel loops with no definite transition point. Re- evaluated by General surgery with p.o. contrast noted in colon, thus no intervention warranted at that time. Continues with significant cephalopathy and poor arousal with sedation vacation. MRI brain on 03/28/2023 is essentially normal. Status post cholecystostomy on 04/03. Status post tracheostomy and jejunostomy on 04/10/2023. Worsening renal function overnight, essentially oliguric. Critical Care Time (minutes): 60 Physical Exam 2 Vital Signs: Vital Signs: Last Vital Signs Temp 101.1 F H 04/13/23 11:00 Pulse 113 H 04/13/23 11:00 Resp 44 H 04/13/23 11:00 BP 133/71 04/13/23 11:00 Pulse Ox 92 04/13/23 11:00 O2 Del Method Mechanical Ventil ation 04/13/23 11:00 O2 Flow Rate 10 04/12/23 14:00 FiO2 30 04/13/23 11:17 BMI result Body Mass Index 32.9 Const: General: no acute distress and other (Sedated on the vent) Eyes: Sclerae: scleral abnormal (icteric) EOM: EOMs intact bilaterally Neck: Neck: Yes no lymphadenopathy and Yes tracheostomy present (on vent support) Resp: Auscultation: clear to auscultation bilaterally Cardio: Rate: tachycardic Rhythm: regular rhythm Heart sounds: no gallops, no murmurs and no rubs GI: Palpation (GI): Soft to palpation and Other GI palpation findings present ( Nontender) Auscultation: normal bowel sounds Extrem: General: No clubbing, No cyanosis and Yes edema (1+ bilateral) Objective Data Labs 04/13/23 05:32 04/13/23 05:32 Labs: Laboratory Results - last 24 hr 04/10/23 04/12/23 04/12/23 12:46 12:10 17:43 WBC RBC Hgb Hct MCV MCH MCHC RDW Plt Count MPV Immature Gran % (Auto) Neut % (Auto) Lymph % (Auto) [place] % (Auto) Eos % (Auto) Baso % (Auto) Lymph # (Auto) [place] # (Auto) Eos # (Auto) Baso # (Auto) Abs Immat Gran (auto) Absolute Neuts (auto) Absolute Nucleated RBC Nucleated RBC % (auto) Smear Tech's Comments VBG pH VBG pCO2 VBG pO2 VBG HCO3 VBG O2 Saturation VBG Base Excess Sodium Potassium Chloride Carbon Dioxide Anion Gap BUN Creatinine Estim Creat Clear Calc Estimated GFR POC Glucose 108 145 H Random Glucose Calcium Phosphorus Magnesium Total Bilirubin AST ALT Alkaline Phosphatase Total Protein Albumin Blood Type O Positive Antibody Screen NEGATIVE Crossmatch See Detail 04/12/23 04/13/23 04/13/23 23:30 05:31 05:32 WBC 18.0 H RBC 2.25 L Hgb 6.8 L* Hct 23.2 L MCV 103.1 H MCH 30.2 MCHC 29.3 L RDW 26.5 H Plt Count TNP MPV TNP Immature Gran % (Auto) 1.7 H Neut % (Auto) 78.2 H Lymph % (Auto) 11.5 L [place] % (Auto) 2.9 Eos % (Auto) 5.5 H Baso % (Auto) 0.2 Lymph # (Auto) 2.1 [place] # (Auto) 0.5 Eos # (Auto) 1.0 H Baso # (Auto) 0.0 Abs Immat Gran (auto) 0.31 H Absolute Neuts (auto) 14.1 H Absolute Nucleated RBC 0.030 H Nucleated RBC % (auto) 0.2 Smear Tech's Comments VERIFIED VBG pH 7.38 VBG pCO2 19 VBG pO2 62 VBG HCO3 12 L VBG O2 Saturation 88.0 VBG Base Excess -11.3 Sodium 148 H Potassium 4.5 Chloride 118 H Carbon Dioxide 13 L Anion Gap 22 H BUN 114 H Creatinine 4.70 H* Estim Creat Clear Calc 27.2 Estimated GFR 14 POC Glucose 144 H Random Glucose 139 H Calcium 8.8 Phosphorus 6.9 H Magnesium 3.3 H Total Bilirubin 7.5 H AST 163 H ALT 93 H Alkaline Phosphatase 135 H Total Protein 6.9 Albumin 3.8 Blood Type Antibody Screen Crossmatch Microbiology Microbiology Results: Microbiology 04/01/23 18:54 Blood - Venous Blood Culture - Final No growth after 5 days. 04/01/23 18:54 Blood - Venous Blood Culture - Final No growth after 5 days. 04/03/23 14:57 Gallbladder Gram Stain - Final 04/03/23 14:57 Gallbladder Routine Culture - Final No growth after 2 days 03/29/23 11:45 Sputum - Suctioned Gram Stain - Final 03/29/23 11:45 Sputum - Suctioned Sputum Culture - Final Staphylococcus aureus Escherichia coli 03/25/23 19:18 Blood - Venous Blood Culture - Final No growth after 5 days. 03/25/23 19:18 Blood - Venous Blood Culture - Final No growth after 5 days. 03/22/23 23:25 Blood - Venous Blood Culture - Final No growth after 5 days. 03/22/23 23:25 Blood - Venous Blood Culture - Final No growth after 5 days. Progress Note: A&P Assessment and plan (1) Ventilator dependent: Status: Acute (2) Cholecystitis: Status: Acute (3) Encephalopathy: Status: Acute (4) Uremia: Status: Acute (5) TILA (acute kidney injury): Status: Acute (6) Hyperbilirubinemia: Status: Acute (7) Ileus: Status: Acute (8) Aspiration into airway: Status: Acute (9) Cardiopulmonary arrest with successful resuscitation: Status: Acute (10) Liver cirrhosis: Status: Acute Plan Assessment: 37-year-old gentleman admitted with alcohol intoxication on the background of degree cirrhosis with hospital course complicated by cardiopulmonary arrest secondary to pulmonary aspiration secondary to underlying ileus Plan: Neuro: Hepatic encephalopathy, continue lactulose. Poor arousal with sedation vacation, though with slow incremental improvements, MRI brain normal on 03/28/2023. Cardiac: Cardiac arrest secondary to pulmonary aspiration. Continue to titrate off pressors as tolerated. 2D echo is normal. Pulmonary: Intubated during the CPR on the background of aspiration of gastric content. Status post tracheostomy and jejunostomy on 04/10/2023. On/off ventilatory support/tracheal collar. Renal: acute kidney injury, worsening, now oliguric. Nephrology service care appreciated. Continue to monitor renal indices and urine output. May require dialysis support. Endo: No acute issues. GI: Alcoholic liver cirrhosis with hyperbilirubinemia. Ileus, now s/p neostigmine x3 with resolution of abdominal distension, now tolerating tube feeds. Cholecystitis status post cholecystostomy. General surgery and gastroenterology services care appreciated. ID: aspiration ppneumonia after aspiration of gastric contents. Treated for Staphylococcus aureus and E coli in sputum. Now with rising white cell count, continue on empiric cefepime. Heme/Onc: No acute issues. Psych: No acute issues. Miscellaneous: No acute issues. Prophylaxis: Heparin, ppi Diet: tube feeds Critical care time spent: 60 minutes Quality Stroke Does the patient have a stroke diagnosis?: No VTE Prior VTE?: No VTE Risk Level:: Medical - moderate - high VTE Device Contraindication: N/A - Device Ordered VTE Drug Contraindication: Treatment Not Tolerated
[2023-04-13 12:10] LABS: Glucose, Whole Blood 203 mg/dL (60-115)
[2023-04-13] MEDS: Chlorothiazide Sodium 500 MG VIAL IVPUSH (12:31)
[2023-04-13] MEDS: Sodium Bicarbonate 8.4% 50 MEQ/50 ML VIAL IVPUSH (12:31)
[2023-04-13] MEDS: Insulin Lispro 100 UNIT/ML 3 ML VIAL SUBCUT ×3 (12:31→23:30)
--- NOTE | 2023-04-13 16:05 | HO.SKINPHOTO ---
Location:L ear Category:? Stage: Length: Width: Depth: cm lesion with some drainage. Pt favors L side of head. Foam applied and head positioned to offload Location: Category: Stage: Length: Width: Depth: cm Location: Category: Stage: Length: Width: Depth: cm Location: Category: Stage: Length: Width: Depth: cm Location: Category: Stage: Length: Width: Depth: cm Location: Category: Stage: Length: Width: Depth: cm
[2023-04-13 17:56] LABS: Glucose, Whole Blood 217 mg/dL (60-115)
[2023-04-13 23:31] LABS: Glucose, Whole Blood 186 mg/dL (60-115)
[2023-04-14] VITALS (40 sets, daily range): BP systolic 103–138; BP diastolic 41–82; PULSE 97–121; RESP 32–50; TEMP 34.8–38.9; O2SAT 86–99; BMI 33.3
[2023-04-14] MEDS: propofoL 1,000 MG/100 ML VIAL 25.32 MG IVCONT ×2 (03:13→06:14)
[2023-04-14] MEDS: Sodium Bicarbonate 8.4% 150 MEQ in Dextrose 5 % 850 ML 100 MEQ IV (04:40)
[2023-04-14 05:29] LABS: MANUAL DIFF FLAG NO
[2023-04-14 05:32] LABS: Venous Blood Gas Refer to POC result
[2023-04-14 05:32] LABS: VBG Base Excess -4.1 mmol/L; VBG HCO3 19 mmol/L (22-26); VBG pCO2 27 mmHg; VBG pH 7.44 (7.32-7.43); VBG pO2 61 mmHg
[2023-04-14 05:34] LABS: Basophils Absolute Auto 0.1 X10*3/uL (0.0-0.2); Basophils Percent Auto 0.3 % (0-2); Eosinophils Percent Auto 5.5 % (0-4); Hematocrit 26.6 % (42.0-52.0); Hemoglobin 8.3 g/dl (14.0-18.0); Imm Gran Abs Auto 0.41 X10*3/uL (0.00-0.03); Imm Gran Pct Auto 2.2 % (0.0-0.4); Lymphocytes Absolute Auto 1.9 X10*3/uL (1.2-4.9); Lymphocytes Percent Auto 10.1 % (20-40); Mean Corpuscular HGB Conc 31.2 g/dl (31.0-36.0); Mean Corpuscular Hemoglobin 30.2 pg (27.0-33.0); Mean Corpuscular Volume 96.7 fL (80.0-98.0); Monocytes Absolute Auto 0.8 X10*3/uL (0.1-1.2); Monocytes Percent Auto 4.3 % (2-11); Neutrophils Absolute Auto 14.7 x10*3/uL (2.0-8.3); Neutrophils Percent Auto 77.6 % (45-73); Platelet Count 201 X10*3/uL (160-400); Red Blood Count 2.75 X10*6/uL (4.60-5.80); Red Cell Distribution Width 25.1 % (11.0-16.0); White Blood Count 18.9 X10*3/uL (4.8-10.8)
[2023-04-14 06:09] LABS: Alanine Aminotransferase 155 U/L (0-40); Albumin Level 3.5 g/dL (3.5-5.0); Alkaline Phosphatase 162 U/L (39-117); Anion Gap 23 (12-20); Aspartate Amino Transferase 233 U/L (5-37); Bilirubin Total 7.5 mg/dL (0.0-1.0); Blood Urea Nitrogen 116 mg/dL (9-16); Calcium 8.4 mg/dL (8.4-10.2); Carbon Dioxide 18 mmol/L (22-29); Chloride 113 mmol/L (96-108); Creatinine Clr Calc Pharmacy 31.3; Estimated Glomerular Filt Rate 16; Glucose Random 163 mg/dL (60-115); Magnesium 3.6 mg/dL (1.6-2.6); Phosphorus 6.1 mg/dL (2.7-4.5); Potassium 3.3 mmol/L (3.3-5.1); Sodium 151 mmol/L (135-145); Total Protein 6.4 g/dL (6.5-8.0)
[2023-04-14] MEDS: Insulin Lispro 100 UNIT/ML 3 ML VIAL SUBCUT ×4 (06:16→23:46)
[2023-04-14] MEDS: Potassium Chloride Packet 20 MEQ PACKET 40 MEQ PO (07:09)
[2023-04-14] MEDS: Calcium Gluconate/NaCl,Iso-Osm 1 GM/50 ML PLAST..BAG IV (07:12)
[2023-04-14] MEDS: 0.9 % Sodium Chloride Flush 3 ML SYRINGE IVFLUSH ×3 (07:14→21:49)
[2023-04-14] MEDS: Lactulose 20 GM/30 ML SOLUTION 30 GM PO ×3 (07:21→21:39)
[2023-04-14] MEDS: methylPREDNISolone Sod Succ 40 MG/ML VIAL IVPUSH (07:24)
[2023-04-14] MEDS: Chlorhexidine Gluc Oral Rinse 15 ML MOUTHWASH BUCCAL ×3 (07:31→21:39)
[2023-04-14] MEDS: Collagenase Clostridium Hist. 30 GM TUBE 1 APPL TOPICAL (07:31)
[2023-04-14] MEDS: cefEPime HCl 1 GM in 0.9 % Sodium Chloride 50 ML IV (07:39)
[2023-04-14] MEDS: Thiamine HCL 200 MG in 0.9 % Sodium Chloride 100 ML 204 MG IV (08:29)
[2023-04-14] MEDS: Bumetanide 1 MG/4 ML VIAL IVPUSH (09:19)
[2023-04-14] MEDS: Sodium Bicarbonate 8.4% 50 MEQ/50 ML VIAL IVPUSH ×4 (09:24→21:50)
--- NOTE | 2023-04-14 09:34 | P.PNCC_ITS ---
Subjective Subjective Date of Service: 04/14/23 Interval History: 37-year-old gentleman with underlying history of alcohol abuse, liver cirrhosis, bipolar disorder MDD admitted on 03/21/2023 with alcohol intoxication. Hospital course significant for abdominal pain for which patient was evaluated by General surgery on 03/22/2023 with no concern for cholecystitis. Further hospital stay complicated by cardiac arrest secondary to pulmonary aspiration of bilious gastric content with returned spontaneous circulation achieved after 3 around of CPR with patient intubated during the CPR and transferred to intensive care unit. In the intensive care unit patient required re-intubation with a large ET tube. OG drained approximately 1 L of bilious fluid. CT abdomen/ pelvis demonstrated dilated bowel loops with no definite transition point. Re- evaluated by General surgery with p.o. contrast noted in colon, thus no intervention warranted at that time. Continues with significant cephalopathy and poor arousal with sedation vacation. MRI brain on 03/28/2023 is essentially normal. Status post cholecystostomy on 04/03. Status post tracheostomy and jejunostomy on 04/10/2023. No events overnight. Urine output recovered. Renal function is improving. Critical Care Time (minutes): 60 Physical Exam 2 Vital Signs: Vital Signs: Last Vital Signs Temp 99.1 F 04/14/23 09:00 Pulse 99 04/14/23 09:04 Resp 50 H 04/14/23 09:00 BP 138/70 04/14/23 09:04 Pulse Ox 95 04/14/23 09:00 O2 Del Method Mechanical Ventil ation 04/14/23 09:00 O2 Flow Rate 10 04/12/23 14:00 FiO2 30 04/14/23 09:00 BMI result Body Mass Index 33.3 Const: General: no acute distress and other ( Sedated on the vent) Eyes: Sclerae: scleral abnormal (icteric) EOM: EOMs intact bilaterally Neck: Neck: Yes no lymphadenopathy, Yes trachea midline and Yes supple Resp: Auscultation: clear to auscultation bilaterally Cardio: Rate: regular rate Rhythm: regular rhythm Heart sounds: no gallops, no murmurs and no rubs GI: Palpation (GI): Soft to palpation and Other GI palpation findings present ( Nontender) Auscultation: normal bowel sounds Extrem: General: No clubbing, No cyanosis and Yes edema (1+ bilateral) Objective Data Labs 04/14/23 05:20 04/14/23 05:20 Labs: Laboratory Results - last 24 hr 04/10/23 04/13/23 04/13/23 12:46 12:06 17:53 WBC RBC Hgb Hct MCV MCH MCHC RDW Plt Count MPV Immature Gran % (Auto) Neut % (Auto) Lymph % (Auto) [place] % (Auto) Eos % (Auto) Baso % (Auto) Lymph # (Auto) [place] # (Auto) Eos # (Auto) Baso # (Auto) Abs Immat Gran (auto) Absolute Neuts (auto) Absolute Nucleated RBC Nucleated RBC % (auto) VBG pH VBG pCO2 VBG pO2 VBG HCO3 VBG O2 Saturation VBG Base Excess Sodium Potassium Chloride Carbon Dioxide Anion Gap BUN Creatinine Estim Creat Clear Calc Estimated GFR POC Glucose 203 H 217 H Random Glucose Calcium Phosphorus Magnesium Total Bilirubin AST ALT Alkaline Phosphatase Total Protein Albumin Crossmatch See Detail 04/13/23 04/14/23 04/14/23 23:27 05:20 05:25 WBC 18.9 H RBC 2.75 L D Hgb 8.3 L D Hct 26.6 L MCV 96.7 D MCH 30.2 MCHC 31.2 RDW 25.1 H Plt Count 201 MPV TNP Immature Gran % (Auto) 2.2 H Neut % (Auto) 77.6 H Lymph % (Auto) 10.1 L [place] % (Auto) 4.3 Eos % (Auto) 5.5 H Baso % (Auto) 0.3 Lymph # (Auto) 1.9 [place] # (Auto) 0.8 Eos # (Auto) 1.0 H Baso # (Auto) 0.1 Abs Immat Gran (auto) 0.41 H Absolute Neuts (auto) 14.7 H Absolute Nucleated RBC 0.000 Nucleated RBC % (auto) 0.0 VBG pH 7.44 H VBG pCO2 27 VBG pO2 61 VBG HCO3 19 L VBG O2 Saturation 88.0 VBG Base Excess -4.1 Sodium 151 H Potassium 3.3 D Chloride 113 H Carbon Dioxide 18 L Anion Gap 23 H BUN 116 H Creatinine 4.12 H* Estim Creat Clear Calc 31.3 Estimated GFR 16 POC Glucose 186 H Random Glucose 163 H Calcium 8.4 Phosphorus 6.1 H Magnesium 3.6 H* Total Bilirubin 7.5 H AST 233 H ALT 155 H Alkaline Phosphatase 162 H Total Protein 6.4 L Albumin 3.5 Crossmatch Microbiology Microbiology Results: Microbiology 04/13/23 15:26 Sputum - Suctioned Gram Stain - Final 04/01/23 18:54 Blood - Venous Blood Culture - Final No growth after 5 days. 04/01/23 18:54 Blood - Venous Blood Culture - Final No growth after 5 days. 04/03/23 14:57 Gallbladder Gram Stain - Final 04/03/23 14:57 Gallbladder Routine Culture - Final No growth after 2 days 03/29/23 11:45 Sputum - Suctioned Gram Stain - Final 03/29/23 11:45 Sputum - Suctioned Sputum Culture - Final Staphylococcus aureus Escherichia coli 03/25/23 19:18 Blood - Venous Blood Culture - Final No growth after 5 days. 03/25/23 19:18 Blood - Venous Blood Culture - Final No growth after 5 days. 03/22/23 23:25 Blood - Venous Blood Culture - Final No growth after 5 days. 03/22/23 23:25 Blood - Venous Blood Culture - Final No growth after 5 days. Progress Note: A&P Assessment and plan (1) Uremia: Status: Acute (2) Ventilator dependent: Status: Acute (3) Cholecystitis: Status: Acute (4) Encephalopathy: Status: Acute (5) Aspiration of gastric contents: Status: Acute (6) TILA (acute kidney injury): Status: Acute (7) Hyperbilirubinemia: Status: Acute (8) Ileus: Status: Acute (9) Cardiopulmonary arrest with successful resuscitation: Status: Acute (10) Liver cirrhosis: Status: Acute Plan Assessment: 37-year-old gentleman admitted with alcohol intoxication on the background of degree cirrhosis with hospital course complicated by cardiopulmonary arrest secondary to pulmonary aspiration secondary to underlying ileus Plan: Neuro: Hepatic encephalopathy, continue lactulose. Poor arousal with sedation vacation, though with slow incremental improvements, MRI brain normal on 03/28/2023. Cardiac: Cardiac arrest secondary to pulmonary aspiration. Continue to titrate off pressors as tolerated. 2D echo is normal. Pulmonary: Intubated during the CPR on the background of aspiration of gastric content. Status post tracheostomy and jejunostomy on 04/10/2023. On/off ventilatory support/tracheal collar. Renal: acute kidney injury,improving, no longer oliguric. Nephrology service care appreciated. Continue to monitor renal indices and urine output. Endo: No acute issues. GI: Alcoholic liver cirrhosis with hyperbilirubinemia. Ileus, now s/p neostigmine x3 with resolution of abdominal distension, now tolerating tube feeds. Cholecystitis status post cholecystostomy. General surgery and gastroenterology services care appreciated. ID: aspiration ppneumonia after aspiration of gastric contents. Treated for Staphylococcus aureus and E coli in sputum. Now with rising white cell count, continue on empiric cefepime. Sputum culture is pending. Heme/Onc: No acute issues. Psych: No acute issues. Miscellaneous: No acute issues. Prophylaxis: Heparin, ppi Diet: tube feeds Critical care time spent: 60 minutes Quality Stroke Does the patient have a stroke diagnosis?: No VTE Prior VTE?: No VTE Risk Level:: Medical - moderate - high VTE Device Contraindication: N/A - Device Ordered VTE Drug Contraindication: Treatment Not Tolerated
[2023-04-14] MEDS: propofoL 1,000 MG/100 ML VIAL 18.99 MG IVCONT ×2 (10:15→14:46)
[2023-04-14] MEDS: Folic Acid 2 MG in 0.9 % Sodium Chloride 50 ML 100.4 MG IV (11:12)
[2023-04-14] MEDS: Chlorothiazide Sodium 500 MG VIAL 1000 MG IVPUSH ×2 (11:48→18:45)
[2023-04-14 12:22] LABS: Glucose, Whole Blood 197 mg/dL (60-115)
[2023-04-14 18:08] LABS: Glucose, Whole Blood 222 mg/dL (60-115)
--- NOTE | 2023-04-14 19:17 | HO.SKINPHOTO ---
Warts(?) hard, raised areas noted on lower arms and lower legs Location: Category: Stage: Length: Width: Depth: cm Location: Category: Stage: Length: Width: Depth: cm Location: Category: Stage: Length: Width: Depth: cm Location: Category: Stage: Length: Width: Depth: cm Location: Category: Stage: Length: Width: Depth: cm Location: Category: Stage: Length: Width: Depth: cm
[2023-04-14] MEDS: Heparin Sodium,Porcine 5,000 UNIT/ML VIAL 5000 UNIT SUBCUT (21:39)
[2023-04-14] MEDS: propofoL 1,000 MG/100 ML VIAL 6.33 MG IVCONT (23:30)
[2023-04-14] MEDS: Norepinephrine Bitartrate/D5W 8 MG/250 ML PLAST..BAG 7.91 MG IV (23:31)
[2023-04-14 23:47] LABS: Glucose, Whole Blood 191 mg/dL (60-115)
[2023-04-15] VITALS (38 sets, daily range): BP systolic 80–149; BP diastolic 40–91; PULSE 98–150; RESP 22–50; TEMP 34.8–38.9; O2SAT 80–98; BMI 32.2
[2023-04-15] MEDS: Sodium Bicarbonate 8.4% 50 MEQ/50 ML VIAL IVPUSH (01:33)
[2023-04-15] MEDS: fentaNYL citrate/PF 100 MCG/2 ML VIAL 50 MCG IVPUSH (01:58)
[2023-04-15 04:46] LABS: VBG Base Excess 1.6 mmol/L; VBG HCO3 23 mmol/L (22-26); VBG pCO2 29 mmHg; VBG pH 7.51 (7.32-7.43); VBG pO2 93 mmHg
[2023-04-15 04:48] LABS: Venous Blood Gas Refer to POC result
[2023-04-15] MEDS: Heparin Sodium,Porcine 5,000 UNIT/ML VIAL 5000 UNIT SUBCUT ×3 (05:23→20:41)
[2023-04-15 05:35] LABS: Mean Corpuscular HGB Conc 30.8 g/dl (31.0-36.0); NRBC Pct Auto 0.1 /100WBC (0.0-0.2); PLT ABN DIST 1; SCAN SMEAR FLAG 1
[2023-04-15 05:37] LABS: Basophils Absolute Auto 0.1 X10*3/uL (0.0-0.2); Basophils Percent Auto 0.4 % (0-2); Eosinophils Absolute Auto 0.7 X10*3/uL (0.0-0.4); Eosinophils Percent Auto 3.4 % (0-4); Hematocrit 26.3 % (42.0-52.0); Hemoglobin 8.1 g/dl (14.0-18.0); Imm Gran Abs Auto 0.49 X10*3/uL (0.00-0.03); Imm Gran Pct Auto 2.3 % (0.0-0.4); Lymphocytes Percent Auto 14.5 % (20-40); Mean Corpuscular Hemoglobin 30.3 pg (27.0-33.0); Mean Corpuscular Volume 98.5 fL (80.0-98.0); Monocytes Absolute Auto 1.4 X10*3/uL (0.1-1.2); Monocytes Percent Auto 6.6 % (2-11); Neutrophils Absolute Auto 15.2 x10*3/uL (2.0-8.3); Neutrophils Percent Auto 72.8 % (45-73); Platelet Count 220 X10*3/uL (160-400); Red Blood Count 2.67 X10*6/uL (4.60-5.80); White Blood Count 20.9 X10*3/uL (4.8-10.8)
[2023-04-15 05:39] LABS: MANUAL DIFF FLAG NO
[2023-04-15 05:45] LABS: Ammonia 67 umol/L (13-55)
--- NOTE | 2023-04-15 05:47 | PC.NURSE ---
CARE ASSUMED 23:15..,.REMAINS VCV VENT SUPPORT VIA #8.0 PORTEX TRACH..SUCTIONED MODERAT AMOUNT LOOSE TO THICK JAQUEZ SECRETIONS VIA TRACH...PROPOFOL 10 MCG/KG/MIN...EYES OPEN SPONTANEOUSLY...PUPILS 3-4MM AND SLUGGISH...NO TRACKING...EXTREMETIES FLACCID....(+) COUGH....CLENCHES MOUTH WITH ATTEMPTED ORAL CARE...DOES NOT FOLLOW ANY COMMANDS...REMAINED TACHYPNEIC...RR 38-42 AT BASE-LINE PAST >1 WEEK....TEMP 101.6-102.0 ORAL...SINUS TACH HR 110-114....INCREASED RR OVERNIGHT..RR 44-50 ON AC SETTINGS...FENTANYL 50 MCG IV X1 PER ICU TRANSVERSE ABDOMINAL MUSCLE SURGEON WITH TRANSIENT EFFECT....RT PRESENT...VENT CHANGED TO ACVC+ MODE...RR DECREASED TO 30-36....JEVITY 75 CC/HR AND Q6H H20 BOLUSES...RECTAL TUBE WITH LIQUIED BROWN STOOL AND ADDITIONAL STOOL LEAKAGE AROUND RECTAL TUBE...T-TUBE WITH SMALL AMOUNT BILIOUS DRAINAGE...REMAINS WITH DIFFUSE WHOLE BODY RASH...RASH SOMEWHAT IMPROVED PER TRANSVERSE ABDOMINAL MUSCLE SURGEON...DRESSING TO COCCYX INTACT...WOUND TO LEFT EAR PER PHOTO
[2023-04-15 06:03] LABS: Alanine Aminotransferase 235 U/L (0-40); Albumin Level 3.3 g/dL (3.5-5.0); Alkaline Phosphatase 229 U/L (39-117); Anion Gap 23 (12-20); Aspartate Amino Transferase 284 U/L (5-37); Bilirubin Total 7.3 mg/dL (0.0-1.0); Blood Urea Nitrogen 139 mg/dL (9-16); Calcium 8.5 mg/dL (8.4-10.2); Carbon Dioxide 23 mmol/L (22-29); Chloride 117 mmol/L (96-108); Creatinine Clr Calc Pharmacy 33.6; Estimated Glomerular Filt Rate 18; Glucose Random 170 mg/dL (60-115); Magnesium 4.2 mg/dL (1.6-2.6); Phosphorus 5.1 mg/dL (2.7-4.5); Potassium 3.5 mmol/L (3.3-5.1); Sodium 159 mmol/L (135-145); Total Protein 6.3 g/dL (6.5-8.0)
[2023-04-15 06:14] LABS: Glucose, Whole Blood 174 mg/dL (60-115)
[2023-04-15] MEDS: Insulin Lispro 100 UNIT/ML 3 ML VIAL SUBCUT ×3 (06:18→17:03)
[2023-04-15] MEDS: Calcium Gluconate/NaCl,Iso-Osm 1 GM/50 ML PLAST..BAG IV (06:25)
[2023-04-15] MEDS: Lactulose 20 GM/30 ML SOLUTION 30 GM PO ×3 (08:38→20:41)
[2023-04-15] MEDS: Thiamine HCL 200 MG in 0.9 % Sodium Chloride 100 ML 204 MG IV (08:39)
[2023-04-15] MEDS: cefEPime HCl 1 GM in 0.9 % Sodium Chloride 50 ML IV (08:39)
[2023-04-15] MEDS: Collagenase Clostridium Hist. 30 GM TUBE 1 APPL TOPICAL (08:39)
[2023-04-15] MEDS: Chlorhexidine Gluc Oral Rinse 15 ML MOUTHWASH BUCCAL ×3 (08:39→20:41)
[2023-04-15] MEDS: methylPREDNISolone Sod Succ 40 MG/ML VIAL IVPUSH (08:39)
[2023-04-15] MEDS: 0.9 % Sodium Chloride Flush 3 ML SYRINGE IVFLUSH ×3 (08:51→20:42)
[2023-04-15] MEDS: Chlorothiazide Sodium 500 MG VIAL IVPUSH ×2 (09:16→20:41)
--- NOTE | 2023-04-15 09:38 | MHC.CLN ---
F/U PT WITH J TUBE AND TRACH. REVIEWED LABS. DISCUSSED AT MD ROUNDS. PT RECEIVING JEVITY 1.0 AT MAX GOAL RATE 75ML/HR. PER MD DOUBLE WATER FLUSHES. FLUSH ORDER CHANGED TO 300 ML FREE WATER FLUSHES Q 4 HRS TO PROVIDE 1908KCALS (23.5KCALS/KG), 80G PROTEIN (.98G/KG), 3303ML TOTAL WATER FROM FORMULA AND FLUSHES (40.8 ML/KG BASED ON IBW) MONITOR TOLERANCE AND LYTES. DO NOT CHECK RESIDUALS WITH J TUBE.
--- NOTE | 2023-04-15 09:55 | P.PNNP_ITS ---
Subjective Subjective Date of Service: 04/16/23 Interval history: Events noted Discussed with ICU attending Physical Exam 2 Vital Signs: Vital Signs: Last Vital Signs Temp 101.9 F H 04/15/23 09:00 Pulse 106 H 04/15/23 09:17 Resp 26 H 04/15/23 09:00 BP 117/58 L 04/15/23 09:17 Pulse Ox 96 04/15/23 09:00 O2 Del Method Mechanical Ventil ation 04/15/23 09:00 O2 Flow Rate 10 04/12/23 14:00 FiO2 50 04/15/23 09:00 BMI result Body Mass Index 32.2 Const: General: no acute distress and ill appearing Neck: Other: Trach + Neck: Yes no meningeal signs and Yes supple Resp: Auscultation: rhonchi and diminished lung sounds Cardio: Jugular venous distension: no JVD Palpation: no palpable S3 R ate: regular rate Heart sounds: no rubs GI: Palpation (GI): Soft to palpation Auscultation: normal bowel sounds Skin: General skin exam: no rashes or lesions noted Neuro: Other: On Vent by trach General: no meningeal signs Cranial nerves: Yes Nystagmus not present Motor exam (neuro): no asterixis Extrem: General: Yes no pedal edema Objective Data Labs 04/16/23 04:45 04/16/23 04:45 Labs: Laboratory Results - last 24 hr 04/14/23 04/14/23 04/14/23 12:18 17:58 23:35 WBC RBC Hgb Hct MCV MCH MCHC RDW Plt Count MPV Immature Gran % (Auto) Neut % (Auto) Lymph % (Auto) [place] % (Auto) Eos % (Auto) Baso % (Auto) Lymph # (Auto) [place] # (Auto) Eos # (Auto) Baso # (Auto) Abs Immat Gran (auto) Absolute Neuts (auto) Absolute Nucleated RBC Nucleated RBC % (auto) VBG pH VBG pCO2 VBG pO2 VBG HCO3 VBG O2 Saturation VBG Base Excess Sodium Potassium Chloride Carbon Dioxide Anion Gap BUN Creatinine Estim Creat Clear Calc Estimated GFR POC Glucose 197 H 222 H 191 H Random Glucose Calcium Phosphorus Magnesium Total Bilirubin AST ALT Alkaline Phosphatase Ammonia Total Protein Albumin 04/15/23 04/15/23 04/15/23 04:39 04:41 06:06 WBC 20.9 H RBC 2.67 L Hgb 8.1 L Hct 26.3 L MCV 98.5 H MCH 30.3 MCHC 30.8 L RDW 26.0 H Plt Count 220 MPV Not Reportable Immature Gran % (Auto) 2.3 H Neut % (Auto) 72.8 Lymph % (Auto) 14.5 L [place] % (Auto) 6.6 Eos % (Auto) 3.4 Baso % (Auto) 0.4 Lymph # (Auto) 3.0 [place] # (Auto) 1.4 H Eos # (Auto) 0.7 H Baso # (Auto) 0.1 Abs Immat Gran (auto) 0.49 H Absolute Neuts (auto) 15.2 H Absolute Nucleated RBC 0.030 H Nucleated RBC % (auto) 0.1 VBG pH 7.51 H VBG pCO2 29 VBG pO2 93 VBG HCO3 23 VBG O2 Saturation 98.0 VBG Base Excess 1.6 Sodium 159 H Potassium 3.5 Chloride 117 H Carbon Dioxide 23 Anion Gap 23 H BUN 139 H Creatinine 3.77 H Estim Creat Clear Calc 33.6 Estimated GFR 18 POC Glucose 174 H Random Glucose 170 H Calcium 8.5 Phosphorus 5.1 H Magnesium 4.2 H* Total Bilirubin 7.3 H AST 284 H ALT 235 H Alkaline Phosphatase 229 H Ammonia 67 H Total Protein 6.3 L Albumin 3.3 L Microbiology Microbiology Results: Microbiology 04/13/23 15:26 Sputum - Suctioned Gram Stain - Final 04/13/23 15:26 Sputum - Suctioned Sputum Culture - Preliminary Culture in progress. 04/01/23 18:54 Blood - Venous Blood Culture - Final No growth after 5 days. 04/01/23 18:54 Blood - Venous Blood Culture - Final No growth after 5 days. 04/03/23 14:57 Gallbladder Gram Stain - Final 04/03/23 14:57 Gallbladder Routine Culture - Final No growth after 2 days 03/29/23 11:45 Sputum - Suctioned Gram Stain - Final 03/29/23 11:45 Sputum - Suctioned Sputum Culture - Final Staphylococcus aureus Escherichia coli 03/25/23 19:18 Blood - Venous Blood Culture - Final No growth after 5 days. 03/25/23 19:18 Blood - Venous Blood Culture - Final No growth after 5 days. 03/22/23 23:25 Blood - Venous Blood Culture - Final No growth after 5 days. 03/22/23 23:25 Blood - Venous Blood Culture - Final No growth after 5 days. Procedures Date of Service Date of Service: 04/16/23 Assessment & Plan Assessment and plan (1) TILA (acute kidney injury): Status: Acute (2) Metabolic acidosis: Status: Acute (3) Anemia: Status: Acute Plan 37-year-old man with a history of cardiac arrest currently his acute kidney injury most likely due to ischemic ATN. No evidence of obstruction. active glomerulonephritis or interstitial disease. -unlikely Now with second episode of TILA - resolving Mild hypernatremia due to free water deficit Recommendation Agree with free water Watch urine output closely. Continue to Avoid hypotension and nephrotoxins. At present is no absolute indication for dialysis. Concur with current medical management and will follow along with the team. Time Spent With Patient Time: Total time managing care of this patient today ____ minutes. Progress Note: Quality Stroke Does the patient have a stroke diagnosis?: No
--- NOTE | 2023-04-15 10:23 | MHC.CM.PN ---
Discussed pt at ICU rounds: not making any progress: 11 liters fluid overloaded: will diurese: new areas of skin impairment; MD states no plans for transfer to [facility]: if pt does not show signs of clinical improvement in 7-10 days he will pursue [employer] with family. Will inform [facility] of temporary hold on d/c planning CM to follow
[2023-04-15] MEDS: Phentolamine Mesylate 5 MG VIAL 10 MG SUBCUT (10:55)
--- NOTE | 2023-04-15 11:38 | PM.CCPN ---
Subjective Subjective Date of Service: 04/15/23 Interval History: 37-year-old gentleman with underlying history of alcohol abuse, liver cirrhosis, bipolar disorder MDD admitted on 03/21/2023 with alcohol intoxication. Hospital course significant for abdominal pain for which patient was evaluated by General surgery on 03/22/2023 with no concern for cholecystitis. Further hospital stay complicated by cardiac arrest secondary to pulmonary aspiration of bilious gastric content with returned spontaneous circulation achieved after 3 around of CPR with patient intubated during the CPR and transferred to intensive care unit. In the intensive care unit patient required re-intubation with a large ET tube. OG drained approximately 1 L of bilious fluid. CT abdomen/ pelvis demonstrated dilated bowel loops with no definite transition point. Re-evaluated by General surgery with p.o. contrast noted in colon, thus no intervention warranted at that time. Continues with significant cephalopathy and poor arousal with sedation vacation. MRI brain on 03/28/2023 is essentially normal. Status post cholecystostomy on 04/03. Status post tracheostomy and jejunostomy on 04/10/2023. No events overnight. Urine output and creatinine continue to improve. Now with hypernatremia. Critical Care Time (minutes): 60 Physical Exam Vital Signs: Vital Signs: Last Vital Signs Temp 100.3 F 04/15/23 10:00 Pulse 108 H 04/15/23 10:00 Resp 27 H 04/15/23 10:00 BP 111/53 L 04/15/23 10:00 Pulse Ox 96 04/15/23 10:00 O2 Del Method Mechanical Ventil ation 04/15/23 10:00 O2 Flow Rate 10 04/12/23 14:00 FiO2 50 04/15/23 10:00 BMI result Body Mass Index 32.2 Const: General: no acute distress Eyes: Sclerae: scleral abnormal (Icteric) EOM: EOMs intact bilaterally Neck: Neck: Yes no lymphadenopathy, Yes trachea midline and Yes supple Resp: Auscultation: clear to auscultation bilaterally Cardio: Rate: tachycardic Rhythm: regular rhythm Heart sounds: no gallops, no murmurs and no rubs GI: Palpation (GI): Soft to palpation and Other GI palpation findings present ( Nontender) Auscultation: normal bowel sounds Extrem: General: No clubbing, No cyanosis and Yes edema (Trace bilateral) Objective Data Labs 04/15/23 04:41 04/15/23 04:41 Labs: Laboratory Results - last 24 hr 04/14/23 04/14/23 04/14/23 12:18 17:58 23:35 WBC RBC Hgb Hct MCV MCH MCHC RDW Plt Count MPV Immature Gran % (Auto) Neut % (Auto) Lymph % (Auto) [place] % (Auto) Eos % (Auto) Baso % (Auto) Lymph # (Auto) [place] # (Auto) Eos # (Auto) Baso # (Auto) Abs Immat Gran (auto) Absolute Neuts (auto) Absolute Nucleated RBC Nucleated RBC % (auto) VBG pH VBG pCO2 VBG pO2 VBG HCO3 VBG O2 Saturation VBG Base Excess Sodium Potassium Chloride Carbon Dioxide Anion Gap BUN Creatinine Estim Creat Clear Calc Estimated GFR POC Glucose 197 H 222 H 191 H Random Glucose Calcium Phosphorus Magnesium Total Bilirubin AST ALT Alkaline Phosphatase Ammonia Total Protein Albumin 04/15/23 04/15/23 04/15/23 04:39 04:41 06:06 WBC 20.9 H RBC 2.67 L Hgb 8.1 L Hct 26.3 L MCV 98.5 H MCH 30.3 MCHC 30.8 L RDW 26.0 H Plt Count 220 MPV Not Reportable Immature Gran % (Auto) 2.3 H Neut % (Auto) 72.8 Lymph % (Auto) 14.5 L [place] % (Auto) 6.6 Eos % (Auto) 3.4 Baso % (Auto) 0.4 Lymph # (Auto) 3.0 [place] # (Auto) 1.4 H Eos # (Auto) 0.7 H Baso # (Auto) 0.1 Abs Immat Gran (auto) 0.49 H Absolute Neuts (auto) 15.2 H Absolute Nucleated RBC 0.030 H Nucleated RBC % (auto) 0.1 VBG pH 7.51 H VBG pCO2 29 VBG pO2 93 VBG HCO3 23 VBG O2 Saturation 98.0 VBG Base Excess 1.6 Sodium 159 H Potassium 3.5 Chloride 117 H Carbon Dioxide 23 Anion Gap 23 H BUN 139 H Creatinine 3.77 H Estim Creat Clear Calc 33.6 Estimated GFR 18 POC Glucose 174 H Random Glucose 170 H Calcium 8.5 Phosphorus 5.1 H Magnesium 4.2 H* Total Bilirubin 7.3 H AST 284 H ALT 235 H Alkaline Phosphatase 229 H Ammonia 67 H Total Protein 6.3 L Albumin 3.3 L Microbiology Microbiology Results: Microbiology 04/13/23 15:26 Sputum - Suctioned Gram Stain - Final 04/13/23 15:26 Sputum - Suctioned Sputum Culture - Final 04/01/23 18:54 Blood - Venous Blood Culture - Final No growth after 5 days. 04/01/23 18:54 Blood - Venous Blood Culture - Final No growth after 5 days. 04/03/23 14:57 Gallbladder Gram Stain - Final 04/03/23 14:57 Gallbladder Routine Culture - Final No growth after 2 days 03/29/23 11:45 Sputum - Suctioned Gram Stain - Final 03/29/23 11:45 Sputum - Suctioned Sputum Culture - Final Staphylococcus aureus Escherichia coli 03/25/23 19:18 Blood - Venous Blood Culture - Final No growth after 5 days. 03/25/23 19:18 Blood - Venous Blood Culture - Final No growth after 5 days. 03/22/23 23:25 Blood - Venous Blood Culture - Final No growth after 5 days. 03/22/23 23:25 Blood - Venous Blood Culture - Final No growth after 5 days. Progress Note: A&P Assessment and plan (1) Uremia: Status: Acute (2) Ventilator dependent: Status: Acute (3) Cholecystitis: Status: Acute (4) Encephalopathy: Status: Acute (5) TILA (acute kidney injury): Status: Acute (6) Hyperbilirubinemia: Status: Acute (7) Ileus: Status: Acute (8) Pulmonary aspiration: Status: Acute (9) Cardiopulmonary arrest with successful resuscitation: Status: Acute (10) Liver cirrhosis: Status: Acute (11) Hypernatremia: Status: Acute Plan Assessment: 37-year-old gentleman admitted with alcohol intoxication on the background of degree cirrhosis with hospital course complicated by cardiopulmonary arrest secondary to pulmonary aspiration secondary to underlying ileus Plan: Neuro: Hepatic encephalopathy, continue lactulose. Poor arousal with sedation vacation, MRI brain normal on 03/28/2023. Continue with lactulose. Cardiac: Cardiac arrest secondary to pulmonary aspiration. Continue to titrate off pressors as tolerated. 2D echo is normal. Pulmonary: Intubated during the CPR on the background of aspiration of gastric content. Status post tracheostomy and jejunostomy on 04/10/2023. On/off ventilatory support/tracheal collar. Renal: acute kidney injury,improving, no longer oliguric. Hypernatremia, increase free water flushes. Nephrology service care appreciated. Continue to monitor renal indices and urine output. Endo: No acute issues. GI: Alcoholic liver cirrhosis with hyperbilirubinemia. Ileus, now s/p neostigmine x3 with resolution of abdominal distension, now tolerating tube feeds. Cholecystitis status post cholecystostomy. General surgery and gastroenterology services care appreciated. ID: aspiration ppneumonia after aspiration of gastric contents. Treated for Staphylococcus aureus and E coli in sputum. Now with rising white cell count, continue on empiric cefepime. Sputum culture is pending. Heme/Onc: No acute issues. Psych: No acute issues. Miscellaneous: No acute issues. Prophylaxis: Heparin, ppi Diet: tube feeds Critical care time spent: 60 minutes Quality Stroke Does the patient have a stroke diagnosis?: No VTE Prior VTE?: No VTE Risk Level:: Medical - moderate - high VTE Device Contraindication: N/A - Device Ordered VTE Drug Contraindication: Treatment Not Tolerated
[2023-04-15 11:53] LABS: Glucose, Whole Blood 175 mg/dL (60-115)
--- NOTE | 2023-04-15 12:24 | HO.SKINPHOTO ---
Location: Right Wrist Category: Extravasation Stage: n/a Length: 5 Width: 5 Depth: 0 cm
--- NOTE | 2023-04-15 15:40 | PC.NURSE ---
Addendum entered by Lupis Barros RN 04/15/23 16:59: RR maintaining high 30's & TV ranging from 250-680. MD notified - okay to restart pro gtt at 10mcg/kg/min. Original Note: Assumed care at 0700. Propofol gtt turned off at [address] Hernandes. Positive cough, absent gag and pain response. Eyes open, no tracking or purposeful movements noted. Unable to follow commands or participate in care. Eyes 3mm PERRLA. Tmax 101.9, patient flushed throughout, diaphoretic - MD notified - cooling blanket applied - temp down to 98.4. ST, 100-110's, no ectopy. Nonpitting edema to upper and lower extremities. New access obtained - see separate IV documentation. Levophed titrated off at 0917. MAPs maintaining >65. Extravasation noted to right wrist - MD notified and at bedside - Regitine SQ ordered and administered - site outlined. Trach care completed by RT. Failed PSV trail - RR mid 50's - MD notified. Switched back to ACVC+ settings by RT - RR high 20's to mid 30's - MD aware. LS rhonchi bilateral upper, thick cream inline secretions. Abd soft, CECILLE dressing & Jtube dressings changed. Tolerating tube feeds and H2O flushes. Continued on lactulose PO - multiple loose BM's throughout shift. Rectal tube removed due to new MDPI to rectal area - MD aware. [place] changed - marichuy care provided. Diuril IV ordered and administered - 1140cc total concentrated dark yellow output. Dressing to sacrum changed and Santyl applied. Lesion to ear open to air - scabbed over. Healed MDPI to penis. Diffuse rash/redness throughout - MD aware. Pt repo q2hr, bed bath completed, heel boots in place.
[2023-04-15] MEDS: propofoL 1,000 MG/100 ML VIAL 6.33 MG IVCONT ×2 (16:57→23:01)
[2023-04-15 17:05] LABS: Glucose, Whole Blood 247 mg/dL (60-115)
[2023-04-15 21:32] LABS: VBG Base Excess -8.6 mmol/L; VBG HCO3 20 mmol/L (22-26); VBG pCO2 58 mmHg; VBG pH 7.14 (7.32-7.43); VBG pO2 48 mmHg
[2023-04-15 21:43] LABS: Eosinophils Percent Auto 2.1 % (0-4); NRBC Pct Auto 0.2 /100WBC (0.0-0.2); Neutrophils Percent Auto 62.1 % (45-73); SCAN SMEAR FLAG 1
[2023-04-15 21:45] LABS: Basophils Absolute Auto 0.1 X10*3/uL (0.0-0.2); Basophils Percent Auto 0.4 % (0-2); Eosinophils Absolute Auto 0.5 X10*3/uL (0.0-0.4); Hematocrit 31.4 % (42.0-52.0); Hemoglobin 9.1 g/dl (14.0-18.0); Imm Gran Abs Auto 0.68 X10*3/uL (0.00-0.03); Imm Gran Pct Auto 2.8 % (0.0-0.4); Lymphocytes Percent Auto 27.4 % (20-40); MANUAL DIFF FLAG SCAN; Mean Corpuscular Volume 103.6 fL (80.0-98.0); Monocytes Absolute Auto 1.3 X10*3/uL (0.1-1.2); Monocytes Percent Auto 5.2 % (2-11); Neutrophils Absolute Auto 15.1 x10*3/uL (2.0-8.3); Platelet Count 249 X10*3/uL (160-400); Red Blood Count 3.03 X10*6/uL (4.60-5.80); White Blood Count 24.3 X10*3/uL (4.8-10.8)
[2023-04-15 21:50] LABS: Lactic Acid 7.7 mmol/L (0.5-2.0); Lymphocytes Absolute Auto 6.7 X10*3/uL (1.2-4.9); PLT ABN DIST 1
[2023-04-15 21:55] LABS: Alanine Aminotransferase 300 U/L (0-40); Albumin Level 3.6 g/dL (3.5-5.0); Alkaline Phosphatase 237 U/L (39-117); Anion Gap 26 (12-20); Aspartate Amino Transferase 295 U/L (5-37); B Type Natriuretic Peptide 92 pg/mL (<100); Bilirubin Total 8.8 mg/dL (0.0-1.0); Calcium 8.8 mg/dL (8.4-10.2); Carbon Dioxide 20 mmol/L (22-29); Chloride 121 mmol/L (96-108); Creatinine Clr Calc Pharmacy 35.5; Estimated Glomerular Filt Rate 19; Glucose Random 306 mg/dL (60-115); Potassium 3.9 mmol/L (3.3-5.1); Sodium 163 mmol/L (135-145); Total Protein 6.9 g/dL (6.5-8.0)
[2023-04-15 22:00] LABS: Venous Blood Gas Refer to POC result
[2023-04-15 22:06] LABS: Blood Urea Nitrogen 140 mg/dL (9-16)
[2023-04-15 22:08] LABS: Troponin-I High Sensitivity 135.9 ng/L (<3.5-35.0)
[2023-04-15 22:13] LABS: SLIDE REVIEW VERIFIED
[2023-04-15] MEDS: Norepinephrine Bitartrate/D5W 8 MG/250 ML PLAST..BAG 9.89 MG IV (23:02)
[2023-04-15 23:33] LABS: Reflex Lactate? Lactic Acid Added
--- NOTE | 2023-04-15 23:47 | P.PNCC_ITS ---
Critical Care Event Note Summary Narrative: This case had a high probability of a clinically significant, sudden, or life threatening deterioration of this patient's condition which required my full and direct attention, intervention and personal management.
--- NOTE | 2023-04-15 23:48 | P.PNCC_ITS ---
Critical Care Event Note Summary Date of Service: 04/15/23 Code activated: Yes Narrative: This case had a high probability of a clinically significant, sudden, or life threatening deterioration of this patient's condition which required my full and direct attention, intervention and personal management. Critical Care Time (minutes): 120 Comment: ?Patient became suddenly hypoxic,? drop volumes on the ventilator,? attempted to lavage in max support on the ventilator.? Required manual bagging.? When bagging subcutaneous air was noted to be increasing from the neck up,? Patient then became Hernando and ultimately cardiac arrested.? ACLS protocol was followed,? ROSC? was achieved after 2 rounds of CPR.? Tracheostomy was removed and intubated with ET tube during cardiac arrest.? Chest x-ray post intubation show bilateral? pneumothorax,? worse on the right side.? Right-sided chets tube done. Unable to get Left one. Chest CT? demonstrated extensive pneumomediastinum extending from left to right side and chest wall emphysema.? Family notified of patient status. Attending Dr Hernandes at bedside. Goals of care conversation held. Patient mother and father decided to initiate DNR. Code statu s updated in chart.? Elevated trop related to shock from from cardiac arrest. No evidence of worsening infection.? ?Elevated troponin from demand ischemia, no ST elevations on EKG ?
--- NOTE | 2023-04-15 23:48 | W.PM.CCHP ---
Procedures Date of Service Date of Service: 04/15/23 Chest Tube Chest Tube 1: Chest tube location: Anterior Chest Size of tube: 14 Chest tube procedure: Yes betadine prep and sterile drapes applied Tube sutured to skin: Yes Sterile dressing applied: Yes Incision made with: #10 blade Post procedure: sutured to skin and sterile dressing applied [place] of air heard: Yes Tube Drainage: none (air ) Post procedure CXR?: Yes Patient tolerated procedure: Yes Progress: Patient required emergent right anterior chest tube for treatment of tension pneumothorax
[2023-04-16] VITALS (40 sets, daily range): BP systolic 92–134; BP diastolic 47–75; PULSE 96–111; RESP 20–36; TEMP 34.8–38.8; O2SAT 93–100; BMI 32.2
--- NOTE | 2023-04-16 | EEG_ITS ---
This is a 16-channel portable EEG. The patient was taken off propofol for this tracing. He was reported to be intubated and unresponsive to stimuli. Normal background EEG rhythm was not noted with almost no discernible EEG activity. Some fine activity was probably artifactual. Cardiac lead did not reveal any significant abnormality. Photic stimulation was not performed. IMPRESSION: Abnormal EEG suggestive of almost lack of brain activity. Clinical exam correlation is recommended to rule out cerebral silence or brain . MD OTILIA Fuchs/DUANE / [phone]
--- NOTE | 2023-04-16 | ECG_ITS ---
Test Reason : elevated trop Blood Pressure : / mmHG Vent. Rate : 099 BPM Atrial Rate : 099 BPM P-R Int : 136 ms QRS Dur : 092 ms QT Int : 398 ms P-R-T Axes : 051 048 049 degrees QTc Int : 510 ms Normal sinus rhythm Nonspecific T wave abnormality Prolonged QT Abnormal ECG No previous ECGs available Referred By: So Wild Electronically Signed By:Michael Dewitt
[2023-04-16 00:02] LABS: MANUAL DIFF FLAG NO
[2023-04-16 00:05] LABS: Basophils Percent Auto 0.2 % (0-2); Eosinophils Absolute Auto 0.2 X10*3/uL (0.0-0.4); Eosinophils Percent Auto 1.2 % (0-4); Hemoglobin 8.4 g/dl (14.0-18.0); Imm Gran Abs Auto 0.39 X10*3/uL (0.00-0.03); Imm Gran Pct Auto 2.4 % (0.0-0.4); Lymphocytes Absolute Auto 2.2 X10*3/uL (1.2-4.9); Lymphocytes Percent Auto 13.1 % (20-40); Mean Corpuscular Hemoglobin 30.3 pg (27.0-33.0); Mean Corpuscular Volume 101.1 fL (80.0-98.0); NRBC Pct Auto 0.1 /100WBC (0.0-0.2); Neutrophils Absolute Auto 12.7 x10*3/uL (2.0-8.3); Neutrophils Percent Auto 77.1 % (45-73); Platelet Count 193 X10*3/uL (160-400); Red Blood Count 2.77 X10*6/uL (4.60-5.80); Red Cell Distribution Width 25.4 % (11.0-16.0); White Blood Count 16.4 X10*3/uL (4.8-10.8)
[2023-04-16 00:17] LABS: ~Lactic Acid-LAB USE ONLY 3.8 mmol/L (0.5-2.0)
[2023-04-16 04:31] LABS: Glucose, Whole Blood 204 mg/dL (60-115)
[2023-04-16 04:31] LABS: Reflex Lactate? 2 Y
[2023-04-16 04:32] LABS: VBG Base Excess 0.4 mmol/L; VBG HCO3 23 mmol/L (22-26); VBG pCO2 31 mmHg; VBG pH 7.47 (7.32-7.43); VBG pO2 189 mmHg
[2023-04-16 05:00] LABS: VBG Base Excess 1.1 mmol/L; VBG HCO3 23 mmol/L (22-26); VBG pCO2 29 mmHg; VBG pO2 67 mmHg
[2023-04-16 05:02] LABS: Troponin-I High Sensitivity 630.3 ng/L (<3.5-35.0)
[2023-04-16 05:03] LABS: Venous Blood Gas Refer to POC result
[2023-04-16 05:34] LABS: Basophils Absolute Auto 0.1 X10*3/uL (0.0-0.2); Basophils Percent Auto 0.3 % (0-2); Eosinophils Absolute Auto 0.2 X10*3/uL (0.0-0.4); Eosinophils Percent Auto 1.2 % (0-4); Hemoglobin 8.2 g/dl (14.0-18.0); Imm Gran Abs Auto 0.38 X10*3/uL (0.00-0.03); Imm Gran Pct Auto 2.1 % (0.0-0.4); Lymphocytes Percent Auto 16.2 % (20-40); Mean Corpuscular HGB Conc 30.4 g/dl (31.0-36.0); Mean Corpuscular Hemoglobin 30.1 pg (27.0-33.0); Mean Corpuscular Volume 99.3 fL (80.0-98.0); Monocytes Absolute Auto 1.3 X10*3/uL (0.1-1.2); Monocytes Percent Auto 6.8 % (2-11); NRBC Pct Auto 0.2 /100WBC (0.0-0.2); Neutrophils Absolute Auto 13.6 x10*3/uL (2.0-8.3); Neutrophils Percent Auto 73.4 % (45-73); PLT ABN DIST 1; Red Blood Count 2.72 X10*6/uL (4.60-5.80); Red Cell Distribution Width 25.6 % (11.0-16.0); SCAN SMEAR FLAG 1; White Blood Count 18.5 X10*3/uL (4.8-10.8)
[2023-04-16 05:36] LABS: MANUAL DIFF FLAG NO; Platelet Count 216 X10*3/uL (160-400)
[2023-04-16 05:41] LABS: Venous Blood Gas Refer to POC result
[2023-04-16 06:04] LABS: Alanine Aminotransferase 273 U/L (0-40); Albumin Level 3.3 g/dL (3.5-5.0); Alkaline Phosphatase 212 U/L (39-117); Anion Gap 21 (12-20); Aspartate Amino Transferase 234 U/L (5-37); Bilirubin Total 8.1 mg/dL (0.0-1.0); Calcium 8.6 mg/dL (8.4-10.2); Carbon Dioxide 23 mmol/L (22-29); Chloride 121 mmol/L (96-108); Estimated Glomerular Filt Rate 22; Glucose Random 175 mg/dL (60-115); Magnesium 4.4 mg/dL (1.6-2.6); Phosphorus 6.3 mg/dL (2.7-4.5); Potassium 3.4 mmol/L (3.3-5.1); Sodium 162 mmol/L (135-145); Total Protein 6.2 g/dL (6.5-8.0)
[2023-04-16 06:05] LABS: Troponin-I High Sensitivity 814.4 ng/L (<3.5-35.0)
[2023-04-16] MEDS: Heparin Sodium,Porcine 5,000 UNIT/ML VIAL 5000 UNIT SUBCUT ×3 (06:12→20:25)
[2023-04-16 06:24] LABS: Blood Urea Nitrogen 151 mg/dL (9-16)
--- NOTE | 2023-04-16 06:29 | PC.NURSE ---
At approx 2100 on 04/15- pt with low Vt/Ve via trach. Attempted to suction/lavage by RT, unable to pass in-line catheter completely. MIRLANDE Wild notified. Becoming hypoxic, SpO2 down to 60s despite BVM ventilation, HR down to 30s, then asystole on tele. Code blue initiated- see paper documentation, ROSC acheived. HR up to 150-170s, SpO2 80%. pCXR completed- MD Hernandes/MIRLANDE Wild aware of results. Right sided 14fr anterior chest tube inserted with immediate increase in SpO2, connected to -20 cm suction. Extensive crepitus and SQ emphysema to face/neck/chest- providers aware. Brought to CT scan without incident. Family called and to bedside- goals of care conversation held with providers, code status changed to DNR.
[2023-04-16] MEDS: 0.9 % Sodium Chloride Flush 3 ML SYRINGE IVFLUSH ×3 (07:27→21:18)
[2023-04-16] MEDS: methylPREDNISolone Sod Succ 40 MG/ML VIAL IVPUSH (07:28)
[2023-04-16] MEDS: Potassium Chloride Packet 20 MEQ PACKET 40 MEQ PO (07:28)
[2023-04-16] MEDS: Albumin Human 25 % 100 ML IV ×3 (07:28→20:25)
[2023-04-16] MEDS: Lactulose 20 GM/30 ML SOLUTION 30 GM PO ×3 (07:46→20:25)
[2023-04-16] MEDS: Chlorhexidine Gluc Oral Rinse 15 ML MOUTHWASH BUCCAL ×3 (07:46→20:26)
[2023-04-16 08:06] LABS: ~Lactic Acid-LAB USE ONLY 1.7 mmol/L (0.5-2.0)
[2023-04-16] MEDS: Thiamine HCL 200 MG in 0.9 % Sodium Chloride 100 ML 204 MG IV (08:21)
[2023-04-16] MEDS: cefEPime HCl 1 GM in 0.9 % Sodium Chloride 50 ML IV (08:21)
[2023-04-16] MEDS: Chlorothiazide Sodium 500 MG VIAL IVPUSH ×2 (08:22→20:25)
[2023-04-16] MEDS: Collagenase Clostridium Hist. 30 GM TUBE 1 APPL TOPICAL (08:22)
--- NOTE | 2023-04-16 10:06 | P.CDIM_ITS ---
PROVIDER RESPONSE TEXT: To clarify, the appropriate diagnosis supported by the clinical indicators: Acute respiratory failure: hypoxic QUERY TEXT: PHYSICIAN'S DOCUMENTATION REQUEST Date of Query: 04/16/2023 09:47 AM EST Patient Name: Nelson López Admit Date: 03/21/2023 Dear Taj Hernandes, A review of the medical record indicates additional documentation may be needed. Please review below and update the documentation accordingly. Clinical Indicators: on 04/15/23: respiratory rate 50-26 Per Critical Care Progress Note 04/15/23: Patient became suddenly hypoxic, drop volumes on the ventilator, attempted to lavage in max support on the ventilator. Required manual bagging. When bagging subcutaneous air was noted to be increasing from the neck up, P atient then became Hernando and ultimately cardiac arrested. ACLS protocol was followed, ROSC was achieved after 2 rounds of CPR. Tracheostomy was removed and intubated with ET tube during cardiac arrest. Chest x-ray post intubation show bilateral pneumothorax, worse on the right side. Right-sided chest tube done. Please clarify which of the following accurately represents the patient's respiratory status: Acute respiratory failure Please specify if Hypoxic, Hypercapnic, or Hypoxic and hypercapnic Acute on chronic respiratory failure Please specify if Hypoxic, Hypercapnic, or Hypoxic and hypercapnic Chronic respiratory failure Please specify if Hypoxic, Hypercapnic, or Hypoxic and hypercapnic Hypoxia Other (explain) Clinically unable to determine (explain) Thank you, Lurdes Graf RN Use of terms such as suspected, likely, concern for, or probable (associated with a specific diagnosi s that is being evaluated, monitored, or treated as if it exists) are acceptable and can be coded in the inpatient se tting, when documented at the time of discharge. Please use your independent medical judgment in providing your response. THIS QUERY IS PART OF THE PERMANENT MEDICAL RECORD
[2023-04-16] MEDS: propofoL 1,000 MG/100 ML VIAL 6.33 MG IVCONT ×2 (10:45→21:11)
[2023-04-16 11:58] LABS: Glucose, Whole Blood 172 mg/dL (60-115)
--- NOTE | 2023-04-16 12:39 | P.PNCC_ITS ---
Subjective Subjective Date of Service: 04/16/23 Interval History: 37-year-old gentleman with underlying history of alcohol abuse, liver cirrhosis, bipolar disorder MDD admitted on 03/21/2023 with alcohol intoxication. Hospital course significant for abdominal pain for which patient was evaluated by General surgery on 03/22/2023 with no concern for cholecystitis. Further hospital stay complicated by cardiac arrest secondary to pulmonary aspiration of bilious gastric content with returned spontaneous circulation achieved after 3 around of CPR with patient intubated during the CPR and transferred to intensive care unit. In the intensive care unit patient required re-intubation with a large ET tube. OG drained approximately 1 L of bilious fluid. CT abdomen/ pelvis demonstrated dilated bowel loops with no definite transition point. Re- evaluated by General surgery with p.o. contrast noted in colon, thus no intervention warranted at that time. Continues with significant cephalopathy and poor arousal with sedation vacation. MRI brain on 03/28/2023 is essentially normal. Status post cholecystostomy on 04/03. Status post tracheostomy and jejunostomy on 04/10/2023. Overnight with development of subcutaneous emphysema and acute hypoxia, unable to be back through the tracheostomy, with development of cardiac arrest. CPR started immediately, tracheostomy removed and patient intubated with ET tube. Returned spontaneous circulation achieved with 2 rounds of CPR. On follow-up x- ray pneumomediastinum, subcutaneous emphysema, bilateral pneumothoraces. Right- sided chest tube placed with stabilization of vital signs. Left-sided chest tube attempted, however unable to advance a wire. CT chest obtained showing pneumomediastinum dissecting and communicating with bilateral hemithoraces with pneumothorax significantly improving after placement of chest tube. Critical Care Time (minutes): 120 Physical Exam 2 Vital Signs: Vital Signs: Last Vital Signs Temp 98.8 F 04/16/23 12:00 Pulse 98 04/16/23 12:00 Resp 29 H 04/16/23 12:00 BP 102/51 L 04/16/23 12:00 Pulse Ox 98 04/16/23 12:00 O2 Del Method Mechanical Ventil ation 04/16/23 12:00 O2 Flow Rate 10 04/12/23 14:00 FiO2 30 04/16/23 12:00 BMI result Body Mass Index 32.2 Const: General: no acute distress and other (Sedated on the vent, subcutaneous emphysema to mid cheek) Eyes: Sclerae: scleral abnormal (Icteric) EOM: EOMs intact bilaterally Neck: Neck: Yes no lymphadenopathy, Yes trachea midline, Yes supple and Yes other (Tracheostomy site with occlusive dressing) Chest: Other: Right midclavicular chest tube Resp: Effort & Inspection: normal respiratory effort and no respiratory distress Auscultation: clear to auscultation bilaterally Cardio: Rate: tachycardic Rhythm: regular rhythm Heart sounds: no gallops, no murmurs and no rubs GI: Palpation (GI): Soft to palpation and Other GI palpation findings present ( Nontender) Auscultation: normal bowel sounds Extrem: General: No clubbing, No cyanosis and Yes edema (Trace bilateral) Objective Data Labs 04/16/23 04:45 04/16/23 04:45 Labs: Laboratory Results - last 24 hr 04/15/23 04/15/23 04/15/23 17:01 21:26 21:28 WBC 24.3 H RBC 3.03 L Hgb 9.1 L Hct 31.4 L MCV 103.6 H D MCH 30.0 MCHC 29.0 L RDW 26.0 H Plt Count 249 MPV Not Reportable Immature Gran % (Auto) 2.8 H Neut % (Auto) 62.1 Lymph % (Auto) 27.4 [place] % (Auto) 5.2 Eos % (Auto) 2.1 Baso % (Auto) 0.4 Lymph # (Auto) 6.7 H [place] # (Auto) 1.3 H Eos # (Auto) 0.5 H Baso # (Auto) 0.1 Abs Immat Gran (auto) 0.68 H Absolute Neuts (auto) 15.1 H Absolute Nucleated RBC 0.050 H Nucleated RBC % (auto) 0.2 Smear Tech's Comments VERIFIED VBG pH 7.14 L* VBG pCO2 58 VBG pO2 48 VBG HCO3 20 L VBG O2 Saturation 55.0 VBG Base Excess -8.6 Sodium 163 H* Potassium 3.9 Chloride 121 H Carbon Dioxide 20 L Anion Gap 26 H BUN 140 H Creatinine 3.57 H Estim Creat Clear Calc 35.5 Estimated GFR 19 POC Glucose 247 H Random Glucose 306 H Lactic Acid 7.7 H* Lactic Acid F/U @ 2Hr Lactic Acid F/U @ 4Hr Calcium 8.8 Phosphorus Magnesium Total Bilirubin 8.8 H AST 295 H ALT 300 H Alkaline Phosphatase 237 H Troponin I High Sens 135.9 H* D B-Natriuretic Peptide 92 Total Protein 6.9 Albumin 3.6 04/15/23 04/16/23 04/16/23 23:56 00:59 02:11 WBC 16.4 H RBC 2.77 L Hgb 8.4 L Hct 28.0 L MCV 101.1 H MCH 30.3 MCHC 30.0 L RDW 25.4 H Plt Count 193 MPV Not Reportable Immature Gran % (Auto) 2.4 H Neut % (Auto) 77.1 H Lymph % (Auto) 13.1 L [place] % (Auto) 6.0 Eos % (Auto) 1.2 Baso % (Auto) 0.2 Lymph # (Auto) 2.2 [place] # (Auto) 1.0 Eos # (Auto) 0.2 Baso # (Auto) 0.0 Abs Immat Gran (auto) 0.39 H Absolute Neuts (auto) 12.7 H Absolute Nucleated RBC 0.020 H Nucleated RBC % (auto) 0.1 Smear Tech's Comments VBG pH VBG pCO2 VBG pO2 VBG HCO3 VBG O2 Saturation VBG Base Excess Sodium Potassium Chloride Carbon Dioxide Anion Gap BUN Creatinine Estim Creat Clear Calc Estimated GFR POC Glucose 204 H Random Glucose Lactic Acid Lactic Acid F/U @ 2Hr 3.8 H* Lactic Acid F/U @ 4Hr Calcium Phosphorus Magnesium Total Bilirubin AST ALT Alkaline Phosphatase Troponin I High Sens 630.3 H* D B-Natriuretic Peptide Total Protein Albumin 04/16/23 04/16/23 04/16/23 02:16 04:45 04:53 WBC 18.5 H RBC 2.72 L Hgb 8.2 L Hct 27.0 L MCV 99.3 H MCH 30.1 MCHC 30.4 L RDW 25.6 H Plt Count 216 MPV Not Reportable Immature Gran % (Auto) 2.1 H Neut % (Auto) 73.4 H Lymph % (Auto) 16.2 L [place] % (Auto) 6.8 Eos % (Auto) 1.2 Baso % (Auto) 0.3 Lymph # (Auto) 3.0 [place] # (Auto) 1.3 H Eos # (Auto) 0.2 Baso # (Auto) 0.1 Abs Immat Gran (auto) 0.38 H Absolute Neuts (auto) 13.6 H Absolute Nucleated RBC 0.030 H Nucleated RBC % (auto) 0.2 Smear Tech's Comments VBG pH 7.47 H 7.50 H VBG pCO2 31 29 VBG pO2 189 67 VBG HCO3 23 23 VBG O2 Saturation 100.0 91.0 VBG Base Excess 0.4 1.1 Sodium 162 H* Potassium 3.4 Chloride 121 H Carbon Dioxide 23 Anion Gap 21 H BUN 151 H Creatinine 3.17 H Estim Creat Clear Calc 40.0 Estimated GFR 22 POC Glucose Random Glucose 175 H Lactic Acid Lactic Acid F/U @ 2Hr Lactic Acid F/U @ 4Hr Calcium 8.6 Phosphorus 6.3 H Magnesium 4.4 H* Total Bilirubin 8.1 H AST 234 H ALT 273 H Alkaline Phosphatase 212 H Troponin I High Sens 814.4 H* B-Natriuretic Peptide Total Protein 6.2 L Albumin 3.3 L 04/16/23 04/16/23 07:51 11:54 WBC RBC Hgb Hct MCV MCH MCHC RDW Plt Count MPV Immature Gran % (Auto) Neut % (Auto) Lymph % (Auto) [place] % (Auto) Eos % (Auto) Baso % (Auto) Lymph # (Auto) [place] # (Auto) Eos # (Auto) Baso # (Auto) Abs Immat Gran (auto) Absolute Neuts (auto) Absolute Nucleated RBC Nucleated RBC % (auto) Smear Tech's Comments VBG pH VBG pCO2 VBG pO2 VBG HCO3 VBG O2 Saturation VBG Base Excess Sodium Potassium Chloride Carbon Dioxide Anion Gap BUN Creatinine Estim Creat Clear Calc Estimated GFR POC Glucose 172 H Random Glucose Lactic Acid Lactic Acid F/U @ 2Hr Lactic Acid F/U @ 4Hr 1.7 Calcium Phosphorus Magnesium Total Bilirubin AST ALT Alkaline Phosphatase Troponin I High Sens B-Natriuretic Peptide Total Protein Albumin Microbiology Microbiology Results: Microbiology 04/13/23 15:26 Sputum - Suctioned Gram Stain - Final 04/13/23 15:26 Sputum - Suctioned Sputum Culture - Final 04/01/23 18:54 Blood - Venous Blood Culture - Final No growth after 5 days. 04/01/23 18:54 Blood - Venous Blood Culture - Final No growth after 5 days. 04/03/23 14:57 Gallbladder Gram Stain - Final 04/03/23 14:57 Gallbladder Routine Culture - Final No growth after 2 days 03/29/23 11:45 Sputum - Suctioned Gram Stain - Final 03/29/23 11:45 Sputum - Suctioned Sputum Culture - Final Staphylococcus aureus Escherichia coli 03/25/23 19:18 Blood - Venous Blood Culture - Final No growth after 5 days. 03/25/23 19:18 Blood - Venous Blood Culture - Final No growth after 5 days. 03/22/23 23:25 Blood - Venous Blood Culture - Final No growth after 5 days. 03/22/23 23:25 Blood - Venous Blood Culture - Final No growth after 5 days. Progress Note: A&P Assessment and plan (1) Bilateral pneumothoraces: Status: Acute (2) Tension pneumomediastinum: Status: Acute (3) Hypernatremia: Status: Acute (4) Ventilator dependent: Status: Acute (5) Cholecystitis: Status: Acute (6) TILA (acute kidney injury): Status: Acute (7) Aspiration of gastric contents: Status: Acute (8) Hyperbilirubinemia: Status: Acute (9) Cardiopulmonary arrest with successful resuscitation: Status: Acute (10) Liver cirrhosis: Status: Acute Plan Assessment: 37-year-old gentleman admitted with alcohol intoxication on the background of degree cirrhosis with hospital course complicated by cardiopulmonary arrest secondary to pulmonary aspiration secondary to underlying ileus Plan: Neuro: Hepatic encephalopathy, continue lactulose. Poor arousal with sedation vacation, MRI brain normal on 03/28/2023. Continue with lactulose. Repet EEG is pending. Cardiac: Repeat cardiac arrest secondary to tension pneumothorax. ROSC after 2 rounds of CPR. Pulmonary: Tracheostomy removed and re-intubated during the CPR on the background of pneumomediastinum communicating with bilateral pneumothoraces. Status post right sided chest tube. Continue ventilatory support. Renal: acute kidney injury,improving, no longer oliguric. Hypernatremia, increase free water flushes. Nephrology service care appreciated. Continue to monitor renal indices and urine output. Endo: No acute issues. GI: Alcoholic liver cirrhosis with hyperbilirubinemia. Ileus, now s/p neostigmine x3 with resolution of abdominal distension, now tolerating tube feeds. Cholecystitis status post cholecystostomy. General surgery and gastroenterology services care appreciated. ID: aspiration ppneumonia after aspiration of gastric contents. Treated for Staphylococcus aureus and E coli in sputum. Continue on empiric cefepime. Sputum culture isnormal bandar. Heme/Onc: No acute issues. Psych: No acute issues. Miscellaneous: Discussions of goals of care are ongoing. Prophylaxis: Heparin, ppi Diet: tube feeds Critical care time spent: 120 minutes Quality Stroke Does the patient have a stroke diagnosis?: No VTE Prior VTE?: No VTE Risk Level:: Medical - moderate - high VTE Device Contraindication: N/A - Device Ordered VTE Drug Contraindication: Treatment Not Tolerated
--- NOTE | 2023-04-16 14:32 | MHC.CM.PN ---
Pt experienced cardiac arrest last evening necessitating re-intubation and CPR. Code status was changed by his parents to DNR. MD to discuss further goals of care w/family today. [facility] transfer discussions are presently pended until more is known. Court date for guardianship/conservator 04/23 CM to follow.
--- NOTE | 2023-04-16 15:48 | PM.PNNEP ---
Subjective Subjective Date of Service: 04/16/23 Interval history: Events noted. Reintubated following repeat cardiac arrest. He is on lactulose for hepatic encephalopathy and there is significant amount of GI losses Remains hypernatremic but nonoliguric Physical Exam Vital Signs: Vital Signs: Last Vital Signs Temp 101.2 F H 04/16/23 15:00 Pulse 102 H 04/16/23 15:11 Resp 22 H 04/16/23 15:00 BP 117/62 04/16/23 15:11 Pulse Ox 93 04/16/23 15:00 O2 Del Method Mechanical Ventil ation 04/16/23 15:00 O2 Flow Rate 10 04/12/23 14:00 FiO2 30 04/16/23 15:09 BMI result Body Mass Index 32.2 Intubated. Ill-appearing. Lungs was rhonchi. Extremities with edema P Objective Data Labs 04/16/23 04:45 04/16/23 04:45 Labs: Laboratory Results - last 24 hr 04/15/23 04/15/23 04/15/23 17:01 21:26 21:28 WBC 24.3 H RBC 3.03 L Hgb 9.1 L Hct 31.4 L MCV 103.6 H D MCH 30.0 MCHC 29.0 L RDW 26.0 H Plt Count 249 MPV Not Reportable Immature Gran % (Auto) 2.8 H Neut % (Auto) 62.1 Lymph % (Auto) 27.4 [place] % (Auto) 5.2 Eos % (Auto) 2.1 Baso % (Auto) 0.4 Lymph # (Auto) 6.7 H [place] # (Auto) 1.3 H Eos # (Auto) 0.5 H Baso # (Auto) 0.1 Abs Immat Gran (auto) 0.68 H Absolute Neuts (auto) 15.1 H Absolute Nucleated RBC 0.050 H Nucleated RBC % (auto) 0.2 Smear Tech's Comments VERIFIED VBG pH 7.14 L* VBG pCO2 58 VBG pO2 48 VBG HCO3 20 L VBG O2 Saturation 55.0 VBG Base Excess -8.6 Sodium 163 H* Potassium 3.9 Chloride 121 H Carbon Dioxide 20 L Anion Gap 26 H BUN 140 H Creatinine 3.57 H Estim Creat Clear Calc 35.5 Estimated GFR 19 POC Glucose 247 H Random Glucose 306 H Lactic Acid 7.7 H* Lactic Acid F/U @ 2Hr Lactic Acid F/U @ 4Hr Calcium 8.8 Phosphorus Magnesium Total Bilirubin 8.8 H AST 295 H ALT 300 H Alkaline Phosphatase 237 H Troponin I High Sens 135.9 H* D B-Natriuretic Peptide 92 Total Protein 6.9 Albumin 3.6 04/15/23 04/16/23 04/16/23 23:56 00:59 02:11 WBC 16.4 H RBC 2.77 L Hgb 8.4 L Hct 28.0 L MCV 101.1 H MCH 30.3 MCHC 30.0 L RDW 25.4 H Plt Count 193 MPV Not Reportable Immature Gran % (Auto) 2.4 H Neut % (Auto) 77.1 H Lymph % (Auto) 13.1 L [place] % (Auto) 6.0 Eos % (Auto) 1.2 Baso % (Auto) 0.2 Lymph # (Auto) 2.2 [place] # (Auto) 1.0 Eos # (Auto) 0.2 Baso # (Auto) 0.0 Abs Immat Gran (auto) 0.39 H Absolute Neuts (auto) 12.7 H Absolute Nucleated RBC 0.020 H Nucleated RBC % (auto) 0.1 Smear Tech's Comments VBG pH VBG pCO2 VBG pO2 VBG HCO3 VBG O2 Saturation VBG Base Excess Sodium Potassium Chloride Carbon Dioxide Anion Gap BUN Creatinine Estim Creat Clear Calc Estimated GFR POC Glucose 204 H Random Glucose Lactic Acid Lactic Acid F/U @ 2Hr 3.8 H* Lactic Acid F/U @ 4Hr Calcium Phosphorus Magnesium Total Bilirubin AST ALT Alkaline Phosphatase Troponin I High Sens 630.3 H* D B-Natriuretic Peptide Total Protein Albumin 04/16/23 04/16/23 04/16/23 02:16 04:45 04:53 WBC 18.5 H RBC 2.72 L Hgb 8.2 L Hct 27.0 L MCV 99.3 H MCH 30.1 MCHC 30.4 L RDW 25.6 H Plt Count 216 MPV Not Reportable Immature Gran % (Auto) 2.1 H Neut % (Auto) 73.4 H Lymph % (Auto) 16.2 L [place] % (Auto) 6.8 Eos % (Auto) 1.2 Baso % (Auto) 0.3 Lymph # (Auto) 3.0 [place] # (Auto) 1.3 H Eos # (Auto) 0.2 Baso # (Auto) 0.1 Abs Immat Gran (auto) 0.38 H Absolute Neuts (auto) 13.6 H Absolute Nucleated RBC 0.030 H Nucleated RBC % (auto) 0.2 Smear Tech's Comments VBG pH 7.47 H 7.50 H VBG pCO2 31 29 VBG pO2 189 67 VBG HCO3 23 23 VBG O2 Saturation 100.0 91.0 VBG Base Excess 0.4 1.1 Sodium 162 H* Potassium 3.4 Chloride 121 H Carbon Dioxide 23 Anion Gap 21 H BUN 151 H Creatinine 3.17 H Estim Creat Clear Calc 40.0 Estimated GFR 22 POC Glucose Random Glucose 175 H Lactic Acid Lactic Acid F/U @ 2Hr Lactic Acid F/U @ 4Hr Calcium 8.6 Phosphorus 6.3 H Magnesium 4.4 H* Total Bilirubin 8.1 H AST 234 H ALT 273 H Alkaline Phosphatase 212 H Troponin I High Sens 814.4 H* B-Natriuretic Peptide Total Protein 6.2 L Albumin 3.3 L 04/16/23 04/16/23 07:51 11:54 WBC RBC Hgb Hct MCV MCH MCHC RDW Plt Count MPV Immature Gran % (Auto) Neut % (Auto) Lymph % (Auto) [place] % (Auto) Eos % (Auto) Baso % (Auto) Lymph # (Auto) [place] # (Auto) Eos # (Auto) Baso # (Auto) Abs Immat Gran (auto) Absolute Neuts (auto) Absolute Nucleated RBC Nucleated RBC % (auto) Smear Tech's Comments VBG pH VBG pCO2 VBG pO2 VBG HCO3 VBG O2 Saturation VBG Base Excess Sodium Potassium Chloride Carbon Dioxide Anion Gap BUN Creatinine Estim Creat Clear Calc Estimated GFR POC Glucose 172 H Random Glucose Lactic Acid Lactic Acid F/U @ 2Hr Lactic Acid F/U @ 4Hr 1.7 Calcium Phosphorus Magnesium Total Bilirubin AST ALT Alkaline Phosphatase Troponin I High Sens B-Natriuretic Peptide Total Protein Albumin Microbiology Microbiology Results: Microbiology 04/13/23 15:26 Sputum - Suctioned Gram Stain - Final 04/13/23 15:26 Sputum - Suctioned Sputum Culture - Final 04/01/23 18:54 Blood - Venous Blood Culture - Final No growth after 5 days. 04/01/23 18:54 Blood - Venous Blood Culture - Final No growth after 5 days. 04/03/23 14:57 Gallbladder Gram Stain - Final 04/03/23 14:57 Gallbladder Routine Culture - Final No growth after 2 days 03/29/23 11:45 Sputum - Suctioned Gram Stain - Final 03/29/23 11:45 Sputum - Suctioned Sputum Culture - Final Staphylococcus aureus Escherichia coli 03/25/23 19:18 Blood - Venous Blood Culture - Final No growth after 5 days. 03/25/23 19:18 Blood - Venous Blood Culture - Final No growth after 5 days. 03/22/23 23:25 Blood - Venous Blood Culture - Final No growth after 5 days. 03/22/23 23:25 Blood - Venous Blood Culture - Final No growth after 5 days. Procedures Date of Service Date of Service: 04/16/23 Assessment & Plan Assessment and plan (1) TILA (acute kidney injury): Status: Acute (2) Metabolic acidosis: Status: Acute (3) Anemia: Status: Acute Plan 37-year-old man with a history of cardiac arrest currently his acute kidney injury most likely due to ischemic ATN. No evidence of obstruction. active glomerulonephritis or interstitial disease. -unlikely Now with second episode of TILA - resolving hypernatremia due to free water deficit Most likely due to GI losses secondary to use of lactulose. Recommendation Agree with free water Watch urine output closely. Continue to Avoid hypotension and nephrotoxins. At present is no absolute indication for dialysis. Concur with current medical management and will follow along with the team. Time Spent With Patient Time: Total time managing care of this patient today ____ minutes. Progress Note: Quality Stroke Does the patient have a stroke diagnosis?: No
[2023-04-16 18:03] LABS: Glucose, Whole Blood 192 mg/dL (60-115)
[2023-04-16] MEDS: Norepinephrine Bitartrate/D5W 8 MG/250 ML PLAST..BAG 1.98 MG IV (21:08)
--- NOTE | 2023-04-16 22:15 | PC.NURSE ---
PER ICU UNLOAD ASSOCIATE TO CONTINUE TO HOLD TUBE FEEDS..TO CONTINUE H20 400ml BOLUSES Q3HR VIA PEG PER UNLOAD ASSOCIATE
[2023-04-17] VITALS (30 sets, daily range): BP systolic 119–146; BP diastolic 62–87; PULSE 100–112; RESP 22–43; TEMP 34.6–38.7; O2SAT 89–96; BMI 30.3
[2023-04-17 00:05] LABS: Glucose, Whole Blood 158 mg/dL (60-115)
[2023-04-17] MEDS: Albumin Human 25 % 100 ML IV (01:52)
[2023-04-17 05:02] LABS: VBG Base Excess 0.5 mmol/L; VBG HCO3 21 mmol/L (22-26); VBG pCO2 23 mmHg; VBG pH 7.57 (7.32-7.43); VBG pO2 94 mmHg
[2023-04-17] MEDS: Heparin Sodium,Porcine 5,000 UNIT/ML VIAL 5000 UNIT SUBCUT ×2 (05:03→21:08)
[2023-04-17 05:06] LABS: Venous Blood Gas Refer to POC result
[2023-04-17 05:36] LABS: Basophils Percent Auto 0.1 % (0-2); Hematocrit 24.6 % (42.0-52.0); Hemoglobin 7.4 g/dl (14.0-18.0); Mean Corpuscular HGB Conc 30.1 g/dl (31.0-36.0); Monocytes Absolute Auto 1.2 X10*3/uL (0.1-1.2); PLT ABN DIST 1; SCAN SMEAR FLAG 1
[2023-04-17 05:38] LABS: Eosinophils Absolute Auto 0.1 X10*3/uL (0.0-0.4); Eosinophils Percent Auto 0.4 % (0-4); Imm Gran Abs Auto 0.36 X10*3/uL (0.00-0.03); Imm Gran Pct Auto 2.5 % (0.0-0.4); Lymphocytes Absolute Auto 2.5 X10*3/uL (1.2-4.9); Lymphocytes Percent Auto 17.6 % (20-40); MANUAL DIFF FLAG NO; Mean Corpuscular Hemoglobin 30.3 pg (27.0-33.0); Mean Corpuscular Volume 100.8 fL (80.0-98.0); Monocytes Percent Auto 8.1 % (2-11); NRBC Pct Auto 0.4 /100WBC (0.0-0.2); Neutrophils Absolute Auto 10.1 x10*3/uL (2.0-8.3); Neutrophils Percent Auto 71.3 % (45-73); Platelet Count 185 X10*3/uL (160-400); Red Blood Count 2.44 X10*6/uL (4.60-5.80); Red Cell Distribution Width 25.8 % (11.0-16.0); White Blood Count 14.2 X10*3/uL (4.8-10.8)
[2023-04-17 06:09] LABS: Alanine Aminotransferase 195 U/L (0-40); Albumin Level 3.9 g/dL (3.5-5.0); Alkaline Phosphatase 173 U/L (39-117); Anion Gap 21 (12-20); Aspartate Amino Transferase 123 U/L (5-37); Bilirubin Total 8.1 mg/dL (0.0-1.0); Blood Urea Nitrogen 162 mg/dL (9-16); Calcium 8.7 mg/dL (8.4-10.2); Carbon Dioxide 20 mmol/L (22-29); Chloride 124 mmol/L (96-108); Creatinine Clr Calc Pharmacy 45.6; Estimated Glomerular Filt Rate 27; Glucose Random 160 mg/dL (60-115); Magnesium 4.3 mg/dL (1.6-2.6); Potassium 3.8 mmol/L (3.3-5.1); Sodium 161 mmol/L (135-145); Total Protein 6.4 g/dL (6.5-8.0)
[2023-04-17] MEDS: propofoL 1,000 MG/100 ML VIAL 6.33 MG IVCONT ×2 (07:12→20:58)
[2023-04-17] MEDS: methylPREDNISolone Sod Succ 40 MG/ML VIAL IVPUSH (07:14)
[2023-04-17] MEDS: 0.9 % Sodium Chloride Flush 3 ML SYRINGE IVFLUSH ×2 (07:14→18:04)
[2023-04-17] MEDS: cefEPime HCl 1 GM in 0.9 % Sodium Chloride 50 ML IV (07:38)
[2023-04-17] MEDS: Chlorothiazide Sodium 500 MG VIAL IVPUSH ×2 (07:40→21:06)
[2023-04-17] MEDS: Thiamine HCL 200 MG in 0.9 % Sodium Chloride 100 ML 204 MG IV (07:43)
[2023-04-17] MEDS: Lactulose 20 GM/30 ML SOLUTION 30 GM PO ×2 (07:45→21:12)
[2023-04-17] MEDS: Chlorhexidine Gluc Oral Rinse 15 ML MOUTHWASH BUCCAL ×3 (07:45→21:06)
[2023-04-17] MEDS: Collagenase Clostridium Hist. 30 GM TUBE 1 APPL TOPICAL (08:41)
--- NOTE | 2023-04-17 09:38 | P.PNCC_ITS ---
Subjective Subjective Date of Service: 04/17/23 Interval History: 37-year-old gentleman with underlying history of alcohol abuse, liver cirrhosis, bipolar disorder MDD admitted on 03/21/2023 with alcohol intoxication. Hospital course significant for abdominal pain for which patient was evaluated by General surgery on 03/22/2023 with no concern for cholecystitis. Further hospital stay complicated by cardiac arrest secondary to pulmonary aspiration of bilious gastric content with returned spontaneous circulation achieved after 3 around of CPR with patient intubated during the CPR and transferred to intensive care unit. In the intensive care unit patient required re-intubation with a large ET tube. OG drained approximately 1 L of bilious fluid. CT abdomen/ pelvis demonstrated dilated bowel loops with no definite transition point. Re- evaluated by General surgery with p.o. contrast noted in colon, thus no intervention warranted at that time. Continues with significant cephalopathy and poor arousal with sedation vacation. MRI brain on 03/28/2023 is essentially normal. Status post cholecystostomy on 04/03. Status post tracheostomy and jejunostomy on 04/10/2023. On 04/14/2023 with 2nd cardiac arrest secondary to development of subcutaneous emphysema/ pneumomediastinum /bilateral pneumothorax status with tension physiology, tracheostomy removed and patient reintubated with ETT. Return of spontaneous circulation after two rounds of CPR. Right- sided chest tube with improvement in bilateral communicating pneumothorax. No events overnight. Critical Care Time (minutes): 60 Physical Exam 2 Vital Signs: Vital Signs: Last Vital Signs Temp 99.7 F 04/17/23 09:00 Pulse 107 H 04/17/23 09:00 Resp 32 H 04/17/23 09:00 BP 134/77 04/17/23 09:00 Pulse Ox 94 04/17/23 09:00 O2 Del Method Mechanical Ventil ation 04/17/23 09:00 O2 Flow Rate 10 04/12/23 14:00 FiO2 30 04/17/23 09:00 BMI result Body Mass Index 30.3 Const: General: no acute distress and other ( sedated on the vent) Eyes: Sclerae: scleral abnormal ( icteric) EOM: EOMs intact bilaterally Neck: Neck: Yes no lymphadenopathy, Yes trachea midline and Yes supple Resp: Effort & Inspection: no respiratory distress Auscultation: clear to auscultation bilaterally Cardio: Rate: tachycardic Rhythm: regular rhythm Heart sounds: no gallops, no murmurs and no rubs GI: Palpation (GI): Soft to palpation and Other GI palpation findings present ( Nontender) Auscultation: normal bowel sounds Extrem: General: No clubbing, No cyanosis and Yes edema ( 1+ bilateral) Objective Data Labs 04/17/23 04:54 04/17/23 04:54 Labs: Laboratory Results - last 24 hr 04/16/23 04/16/23 04/16/23 11:54 17:58 23:56 WBC RBC Hgb Hct MCV MCH MCHC RDW Plt Count MPV Immature Gran % (Auto) Neut % (Auto) Lymph % (Auto) [place] % (Auto) Eos % (Auto) Baso % (Auto) Lymph # (Auto) [place] # (Auto) Eos # (Auto) Baso # (Auto) Abs Immat Gran (auto) Absolute Neuts (auto) Absolute Nucleated RBC Nucleated RBC % (auto) VBG pH VBG pCO2 VBG pO2 VBG HCO3 VBG O2 Saturation VBG Base Excess Sodium Potassium Chloride Carbon Dioxide Anion Gap BUN Creatinine Estim Creat Clear Calc Estimated GFR POC Glucose 172 H 192 H 158 H Random Glucose Calcium Phosphorus Magnesium Total Bilirubin AST ALT Alkaline Phosphatase Total Protein Albumin 04/17/23 04/17/23 04:54 04:56 WBC 14.2 H RBC 2.44 L Hgb 7.4 L Hct 24.6 L MCV 100.8 H MCH 30.3 MCHC 30.1 L RDW 25.8 H Plt Count 185 MPV Not Reportable Immature Gran % (Auto) 2.5 H Neut % (Auto) 71.3 Lymph % (Auto) 17.6 L [place] % (Auto) 8.1 Eos % (Auto) 0.4 Baso % (Auto) 0.1 Lymph # (Auto) 2.5 [place] # (Auto) 1.2 Eos # (Auto) 0.1 Baso # (Auto) 0.0 Abs Immat Gran (auto) 0.36 H Absolute Neuts (auto) 10.1 H Absolute Nucleated RBC 0.050 H Nucleated RBC % (auto) 0.4 H VBG pH 7.57 H VBG pCO2 23 VBG pO2 94 VBG HCO3 21 L VBG O2 Saturation 99.0 VBG Base Excess 0.5 Sodium 161 H* Potassium 3.8 Chloride 124 H Carbon Dioxide 20 L Anion Gap 21 H BUN 162 H Creatinine 2.70 H Estim Creat Clear Calc 45.6 Estimated GFR 27 POC Glucose Random Glucose 160 H Calcium 8.7 Phosphorus 6.0 H Magnesium 4.3 H* Total Bilirubin 8.1 H AST 123 H ALT 195 H Alkaline Phosphatase 173 H Total Protein 6.4 L Albumin 3.9 Microbiology Microbiology Results: Microbiology 04/13/23 15:26 Sputum - Suctioned Gram Stain - Final 04/13/23 15:26 Sputum - Suctioned Sputum Culture - Final 04/01/23 18:54 Blood - Venous Blood Culture - Final No growth after 5 days. 04/01/23 18:54 Blood - Venous Blood Culture - Final No growth after 5 days. 04/03/23 14:57 Gallbladder Gram Stain - Final 04/03/23 14:57 Gallbladder Routine Culture - Final No growth after 2 days 03/29/23 11:45 Sputum - Suctioned Gram Stain - Final 03/29/23 11:45 Sputum - Suctioned Sputum Culture - Final Staphylococcus aureus Escherichia coli 03/25/23 19:18 Blood - Venous Blood Culture - Final No growth after 5 days. 03/25/23 19:18 Blood - Venous Blood Culture - Final No growth after 5 days. 03/22/23 23:25 Blood - Venous Blood Culture - Final No growth after 5 days. 03/22/23 23:25 Blood - Venous Blood Culture - Final No growth after 5 days. Progress Note: A&P Assessment and plan (1) Bilateral pneumothoraces: Status: Acute (2) Hypernatremia: Status: Acute (3) Uremia: Status: Acute (4) Ventilator dependent: Status: Acute (5) Encephalopathy: Status: Acute (6) TILA (acute kidney injury): Status: Acute (7) Hyperbilirubinemia: Status: Acute (8) Ileus: Status: Acute (9) Cardiopulmonary arrest with successful resuscitation: Status: Acute (10) Liver cirrhosis: Status: Acute Plan Assessment: 37-year-old gentleman admitted with alcohol intoxication on the background of degree cirrhosis with hospital course complicated by cardiopulmonary arrest secondary to pulmonary aspiration secondary to underlying ileus Plan: Neuro: Hepatic encephalopathy, continue lactulose. Poor arousal with sedation vacation, MRI brain normal on 03/28/2023. Continue with lactulose. Repet EEG is pending. Cardiac: Repeat cardiac arrest secondary to tension pneumothorax. ROSC after 2 rounds of CPR. Pulmonary: Tracheostomy removed and re-intubated during the CPR on the background of pneumomediastinum communicating with bilateral pneumothoraces. Status post right sided chest tube. Continue ventilatory support. Renal: acute kidney injury,improving, no longer oliguric. Hypernatremia, increase free water flushes. Nephrology service care appreciated. Continue to monitor renal indices and urine output. Endo: No acute issues. GI: Alcoholic liver cirrhosis with hyperbilirubinemia. Ileus, now s/p neostigmine x3 with resolution of abdominal distension, now tolerating tube feeds. Cholecystitis status post cholecystostomy. General surgery and gastroenterology services care appreciated. ID: aspiration ppneumonia after aspiration of gastric contents. Treated for Staphylococcus aureus and E coli in sputum. Continue on empiric cefepime. Sputum culture with normal bandar. Heme/Onc: No acute issues. Psych: No acute issues. Miscellaneous: Discussions of goals of care are ongoing. Prophylaxis: Heparin, ppi Diet: tube feeds Critical care time spent: 60 minutes Quality Stroke Does the patient have a stroke diagnosis?: No VTE Prior VTE?: No VTE Risk Level:: Medical - moderate - high VTE Device Contraindication: N/A - Device Ordered VTE Drug Contraindication: Treatment Not Tolerated
--- NOTE | 2023-04-17 10:01 | MHC.CLN ---
F/U PT re-intubated 04/16/23 REVIEWED LABS DISCUSSED AT ROUNDS WITH MD NAIF HUGHES D/C PT RECEIVING NEPRO AT MAX GOAL RATE 30ML/HR WITH 300ML FREE WATER FLUSHES Q 4 HRS PROVIDES 1296KCALS, 58G PROTEIN, 2323ML TOTAL WATER FROM FORMULA AND FLUSHES (28ML/KG) MONITOR TOLERANCE AND LYTES DO NOT CHECK RESIDUALS WITH J TUBE
--- NOTE | 2023-04-17 11:28 | P.PNNP_ITS ---
Subjective Subjective Date of Service: 04/18/23 Interval history: Events noted LActulose hs been decreased Physical Exam 2 Vital Signs: Vital Signs: Last Vital Signs Temp 100.0 F 04/17/23 11:00 Pulse 105 H 04/17/23 11:00 Resp 30 H 04/17/23 11:00 BP 137/82 04/17/23 11:00 Pulse Ox 96 04/17/23 11:00 O2 Del Method Mechanical Ventil ation 04/17/23 11:00 O2 Flow Rate 10 04/12/23 14:00 FiO2 30 04/17/23 11:19 BMI result Body Mass Index 30.3 Const: General: no acute distress and ill appearing Neck: Other: Trach + Neck: Yes no meningeal signs and Yes supple Resp: Auscultation: rhonchi and diminished lung sounds Cardio: Jugular venous distension: no JVD Palpation: no palpable S3 R ate: regular rate Heart sounds: no rubs GI: Palpation (GI): Soft to palpation Auscultation: normal bowel sounds Skin: General skin exam: no rashes or lesions noted Neuro: Other: On Vent by trach General: no meningeal signs Cranial nerves: Yes Nystagmus not present Motor exam (neuro): no asterixis Extrem: General: Yes no pedal edema Objective Data Labs 04/18/23 04:53 04/18/23 04:53 Labs: Laboratory Results - last 24 hr 04/16/23 04/16/23 04/16/23 11:54 17:58 23:56 WBC RBC Hgb Hct MCV MCH MCHC RDW Plt Count MPV Immature Gran % (Auto) Neut % (Auto) Lymph % (Auto) [place] % (Auto) Eos % (Auto) Baso % (Auto) Lymph # (Auto) [place] # (Auto) Eos # (Auto) Baso # (Auto) Abs Immat Gran (auto) Absolute Neuts (auto) Absolute Nucleated RBC Nucleated RBC % (auto) VBG pH VBG pCO2 VBG pO2 VBG HCO3 VBG O2 Saturation VBG Base Excess Sodium Potassium Chloride Carbon Dioxide Anion Gap BUN Creatinine Estim Creat Clear Calc Estimated GFR POC Glucose 172 H 192 H 158 H Random Glucose Calcium Phosphorus Magnesium Total Bilirubin AST ALT Alkaline Phosphatase Total Protein Albumin 04/17/23 04/17/23 04:54 04:56 WBC 14.2 H RBC 2.44 L Hgb 7.4 L Hct 24.6 L MCV 100.8 H MCH 30.3 MCHC 30.1 L RDW 25.8 H Plt Count 185 MPV Not Reportable Immature Gran % (Auto) 2.5 H Neut % (Auto) 71.3 Lymph % (Auto) 17.6 L [place] % (Auto) 8.1 Eos % (Auto) 0.4 Baso % (Auto) 0.1 Lymph # (Auto) 2.5 [place] # (Auto) 1.2 Eos # (Auto) 0.1 Baso # (Auto) 0.0 Abs Immat Gran (auto) 0.36 H Absolute Neuts (auto) 10.1 H Absolute Nucleated RBC 0.050 H Nucleated RBC % (auto) 0.4 H VBG pH 7.57 H VBG pCO2 23 VBG pO2 94 VBG HCO3 21 L VBG O2 Saturation 99.0 VBG Base Excess 0.5 Sodium 161 H* Potassium 3.8 Chloride 124 H Carbon Dioxide 20 L Anion Gap 21 H BUN 162 H Creatinine 2.70 H Estim Creat Clear Calc 45.6 Estimated GFR 27 POC Glucose Random Glucose 160 H Calcium 8.7 Phosphorus 6.0 H Magnesium 4.3 H* Total Bilirubin 8.1 H AST 123 H ALT 195 H Alkaline Phosphatase 173 H Total Protein 6.4 L Albumin 3.9 Microbiology Microbiology Results: Microbiology 04/13/23 15:26 Sputum - Suctioned Gram Stain - Final 04/13/23 15:26 Sputum - Suctioned Sputum Culture - Final 04/01/23 18:54 Blood - Venous Blood Culture - Final No growth after 5 days. 04/01/23 18:54 Blood - Venous Blood Culture - Final No growth after 5 days. 04/03/23 14:57 Gallbladder Gram Stain - Final 04/03/23 14:57 Gallbladder Routine Culture - Final No growth after 2 days 03/29/23 11:45 Sputum - Suctioned Gram Stain - Final 03/29/23 11:45 Sputum - Suctioned Sputum Culture - Final Staphylococcus aureus Escherichia coli 03/25/23 19:18 Blood - Venous Blood Culture - Final No growth after 5 days. 03/25/23 19:18 Blood - Venous Blood Culture - Final No growth after 5 days. 03/22/23 23:25 Blood - Venous Blood Culture - Final No growth after 5 days. 03/22/23 23:25 Blood - Venous Blood Culture - Final No growth after 5 days. Procedures Date of Service Date of Service: 04/18/23 Assessment & Plan Assessment and plan (1) TILA (acute kidney injury): Status: Acute (2) Metabolic acidosis: Status: Acute (3) Anemia: Status: Acute Plan 37-year-old man with a history of cardiac arrest currently his acute kidney injury most likely due to ischemic ATN. No evidence of obstruction. active glomerulonephritis or interstitial disease. -unlikely Now with second episode of TILA - resolving - Cr trending down hypernatremia due to free water deficit Most likely due to GI losses secondary to use of lactulose. Recommendation Agree with free water Keep Chlorthalidone Watch urine output closely. Continue to Avoid hypotension and nephrotoxins. At present is no absolute indication for dialysis. Concur with current medical management and will follow along with the team. Time Spent With Patient Time: Total time managing care of this patient today ____ minutes. Progress Note: Quality Stroke Does the patient have a stroke diagnosis?: No
--- NOTE | 2023-04-17 11:45 | HO.WOUND ---
Wound Consult: Follow Up Wound consult follow up attempted - per direct care nurse pt was recently repositioned and given his clinical deterioration with repositioning will defer to next turn for assessment. Will await to hear from direct care nurse for assessment.
[2023-04-17 12:07] LABS: Glucose, Whole Blood 198 mg/dL (60-115)
--- NOTE | 2023-04-17 15:29 | HO.WOUND ---
Wound Consult: Follow up 37yr old male admitted to [facility] on?03/21/23 16:30 - See progress notes and H&P for detailed history. Wound consult follow up for Sacral wound. Pt remains ICU level of care, complex hospital course including cardiac arrest on 03/22/23, ventilator support, Acute Renal Insufficiency due to Ischemia, and encephalopathy. Trach and Jtube placement on 04/10/23. On 04/14/2023 2nd cardiac arrest, tracheostomy removed and patient reintubated with ETT, return of spontaneous circulation after two rounds of CPR. See Critical Care Progress notes for details of complex hospital stay. The wound located at the sacrum pictured below is likely caused in part by Ischemia and is currently an Unstageable Pressure Injury. 04/04/23 Assessment 04/12/23 Assessment 04/17/23 Todays assessment Sacrum Etiology: Unstageable Pressure Inury Measurements: 6.5cm x 2cm x 0.2cm Wound Bed: Necrotic yellow foley leather like adherent slough Drainage / Odor: difficult to assess as pt was incontinent of loose stool and stool was noted under dressing Edges: ? Irregular [place] wound: Surrounding partial thickness tissue loss with red clean moist wound bed - No Odor, No Induration, No Fluctuance noted Pain: Intubated and nonresponsive to environment Goals of Treatment: ? Off Load Pressure - Santyl for enzymatic debridement - Provider to consider Surgical debridement to facilitate removal of necrotic tissue as pts frequent stooling is impacting wound dressings. continue to use all preventative measures in place (Currently in place - KAILA mattress, Off Loading with pillows and wedges - Nutrition recommendations in place and following. Urinary and fecal containment devices in place along with disposable dry flow pads in place. Left Ear Right Ear Left Ear / [place] Etiology: Deep Tissue Injury Measurements: 0.5cm x 0.6cm Wound Bed: Indurated dark purple intact nonblanchable tissue Drainage / Odor: None Edges: ? Irregular and not consistent with typical pressure and no device noted however patient favors left head facing positioning Marichuy wound: Red blanchable erythema / pigmentation he appears flushed and jaundice throughout his whole body, warm to touch throughout body and swelling noted to left ear - No Fluctuance noted Pain: Intubated and nonresponsive to environment Goals of Treatment: ? Foam to protect from friction and aid in off loading pressure - Mindful head placement as patient favors left side head facing Anus Etiology: Device Related Mucosal Pressure injury - Flexiseal discontinued after discovery by direct care team Wound Bed: red moist tissue appears partial thickness Drainage / Odor: [place] scant amount Edges: ? irregular and internal to anus [place] wound: ?Hemorrhoid noted - red blanchable tissue - No Induration, No Fluctuance noted Pain: Intubated and nonresponsive to environment Goals of Treatment: Flexiseal since removed - no device in place at this time - continue to protect and allow for moist wound healing with Triad. Penis device related injury resurfaced no injury at this time. No topical interventions needed at this time. Right Wrist - Infiltration site assessed - appears to be evolving - central necrotic tissue noted under intact epidermal layer - marking pen shows no advancement - the IV line in patients right hand is providing friction to the fragile necrotic tissue appears to be causing epidermal lifting - would recommend dry nonstick gauze applied to protect from friction and trauma and allow staff for easy assessment. Do not use foam as this will likely keep tissue slightly moist and although gentle will likely remove fragile epidermal layer. Inpatient wound care nurse will continue to follow. Recommendations: 1.Turn and Reposition every 2 hours and as needed for patient comfort continue use of wedges. 2. Off Load all bony prominences with use of pillows, wedges and heel boots - preventative foams when needed. 3. Monitor for incontinence and moisture control - Barrier cream to be used 4. Provide adequate and supplemental nutrition - Nutrition is following and recommendations in place. 5. Continue low air loss mattress and specialty mattress in place. 6. Sacrum - Off Load Pressure with wedges and or pillows - Cleanse with normal saline, pat dry. ?Apply barrier to the immediate marichuy wound, apply thick layer of Santyl to entire wound bed, cover with xeroform, secure foam dressing, change Daily. 7. Left Ear - Cleanse with NA, Pat dry. Apply foam dressing to protect from friction and aid in off loading pressure. Mindful head placement to off load from wound as patient favors left side head facing. 8. Anus - Cleanse with routine cleaning and incontinence care - gently wipe clean. Apply layer of triad to wound bed twice daily and PRN after incontinence episodes. 9. Right Wrist - Gently cleanse with NS, Pat dry. Apply skin barrier wipe, allow to dry. Recommend dry nonstick gauze applied to protect from friction and trauma and allow for easy assessment. Do not use foam as this will likely keep tissue slightly moist and although gentle will likely remove fragile epidermal layer. Change daily.
[2023-04-17] MEDS: propofoL 1,000 MG/100 ML VIAL 12.66 MG IVCONT (16:53)
[2023-04-17 18:03] LABS: Glucose, Whole Blood 186 mg/dL (60-115)
[2023-04-17] MEDS: Insulin Lispro 100 UNIT/ML 3 ML VIAL SUBCUT (18:04)
--- NOTE | 2023-04-17 18:33 | PC.NURSE ---
Pt to MRI with respiratory and transport. pt tolerates movement and reposition well. increased drainage from jejunostomy site with turning. wound nurse sees pt today to assess wounds to coccyx, anus, dorsal R hand, old trach site and new L ear wound. Pt opens eyes and moves them in repeatitive pattern before episodes of somulance. pupils are not equal with R larger than L however bilat responsiveness. no gaging with oral suctioning and no coughing stimulated with deep suction althought pt is witnessed coughing at times. tolerates vent well however has had a respiratory rate in the 30s for the majority of the day. only small subcutaneous emphysema felt around chest tube site. no output from chest tube. pt incont of several episodes of large volume black stool liquid. condom cath in place draining well.
--- NOTE | 2023-04-17 20:20 | PM.EVENT ---
Documented by User: So Wild NP 04/17/23 20:23 Event Note Date of Service: 04/17/23 Event Note: MRI of the brain consistent with the sequelae of late subacute [id number] hypoxic ischemic brain injury. Patient parents Tico and Mame López informed of MRI results over the phone. They did not want to make goals of care decisions tonight, request goals of care conversation with attending physician tomorrow Time Spent With Patient Time: Total time managing care of this patient today ____ minutes. Documented by User: Taj Hernandes MD 04/18/23 11:25 Event Note Date of Service: 04/18/23
[2023-04-17 23:57] LABS: Glucose, Whole Blood 193 mg/dL (60-115)
[2023-04-18] VITALS (29 sets, daily range): BP systolic 99–140; BP diastolic 53–91; PULSE 99–114; RESP 13–41; TEMP 34.2–38.1; O2SAT 87–94; BMI 30.5
[2023-04-18] MEDS: Insulin Lispro 100 UNIT/ML 3 ML VIAL SUBCUT ×2 (00:30→06:21)
[2023-04-18] MEDS: 0.9 % Sodium Chloride Flush 3 ML SYRINGE IVFLUSH ×3 (00:30→16:01)
[2023-04-18 04:59] LABS: VBG Base Excess -2.3 mmol/L; VBG HCO3 19 mmol/L (22-26); VBG pCO2 23 mmHg; VBG pH 7.52 (7.32-7.43); VBG pO2 86 mmHg
[2023-04-18 05:03] LABS: Venous Blood Gas Refer to POC result
[2023-04-18 05:39] LABS: Mean Corpuscular Hemoglobin 30.3 pg (27.0-33.0); PLT ABN DIST 1; Red Cell Distribution Width 25.1 % (11.0-16.0); SCAN SMEAR FLAG 1
[2023-04-18 05:41] LABS: Basophils Percent Auto 0.2 % (0-2); Eosinophils Percent Auto 0.1 % (0-4); Hematocrit 26.9 % (42.0-52.0); Imm Gran Abs Auto 0.45 X10*3/uL (0.00-0.03); Imm Gran Pct Auto 2.8 % (0.0-0.4); Lymphocytes Absolute Auto 2.3 X10*3/uL (1.2-4.9); Lymphocytes Percent Auto 14.6 % (20-40); Mean Corpuscular HGB Conc 29.7 g/dl (31.0-36.0); Mean Corpuscular Volume 101.9 fL (80.0-98.0); Monocytes Absolute Auto 1.5 X10*3/uL (0.1-1.2); Monocytes Percent Auto 9.2 % (2-11); NRBC Pct Auto 0.1 /100WBC (0.0-0.2); Neutrophils Absolute Auto 11.8 x10*3/uL (2.0-8.3); Neutrophils Percent Auto 73.1 % (45-73); Platelet Count 191 X10*3/uL (160-400); Red Blood Count 2.64 X10*6/uL (4.60-5.80); White Blood Count 16.1 X10*3/uL (4.8-10.8)
[2023-04-18 05:42] LABS: MANUAL DIFF FLAG NO
[2023-04-18] MEDS: Heparin Sodium,Porcine 5,000 UNIT/ML VIAL 5000 UNIT SUBCUT (05:43)
[2023-04-18 06:13] LABS: Alanine Aminotransferase 168 U/L (0-40); Albumin Level 3.7 g/dL (3.5-5.0); Alkaline Phosphatase 154 U/L (39-117); Anion Gap 20 (12-20); Aspartate Amino Transferase 105 U/L (5-37); Bilirubin Total 9.5 mg/dL (0.0-1.0); Calcium 8.9 mg/dL (8.4-10.2); Carbon Dioxide 19 mmol/L (22-29); Chloride 130 mmol/L (96-108); Creatinine Clr Calc Pharmacy 59.7; Estimated Glomerular Filt Rate 36; Glucose Random 179 mg/dL (60-115); Magnesium 4.2 mg/dL (1.6-2.6); Phosphorus 5.9 mg/dL (2.7-4.5); Sodium 165 mmol/L (135-145); Total Protein 6.2 g/dL (6.5-8.0)
[2023-04-18 06:21] LABS: Blood Urea Nitrogen 159 mg/dL (9-16)
[2023-04-18] MEDS: cefEPime HCl 1 GM in 0.9 % Sodium Chloride 50 ML IV (08:20)
[2023-04-18] MEDS: Chlorothiazide Sodium 500 MG VIAL IVPUSH (08:20)
[2023-04-18] MEDS: Chlorhexidine Gluc Oral Rinse 15 ML MOUTHWASH BUCCAL ×2 (08:20→16:01)
[2023-04-18] MEDS: Collagenase Clostridium Hist. 30 GM TUBE 1 APPL TOPICAL (08:21)
[2023-04-18] MEDS: Thiamine HCL 200 MG in 0.9 % Sodium Chloride 100 ML 204 MG IV (08:21)
[2023-04-18] MEDS: Lactulose 20 GM/30 ML SOLUTION 30 GM PO (08:21)
[2023-04-18] MEDS: Folic Acid 1 MG in 0.9 % Sodium Chloride 50 ML 100.4 MG IV (09:05)
[2023-04-18] MEDS: propofoL 1,000 MG/100 ML VIAL 6.33 MG IVCONT (09:41)
--- NOTE | 2023-04-18 09:45 | P.PNNP_ITS ---
Subjective Subjective Date of Service: 04/22/23 Interval history: Events noted Physical Exam 2 Vital Signs: Vital Signs: Last Vital Signs Temp 99.1 F 04/18/23 09:00 Pulse 102 H 04/18/23 09:00 Resp 27 H 04/18/23 09:00 BP 124/70 04/18/23 08:00 Pulse Ox 94 04/18/23 09:00 O2 Del Method Mechanical Ventil ation 04/18/23 09:00 O2 Flow Rate 10 04/12/23 14:00 FiO2 30 04/18/23 09:00 BMI result Body Mass Index 30.5 Objective Data Labs 04/18/23 15:41 04/18/23 15:41 Labs: Laboratory Results - last 24 hr 04/17/23 04/17/23 04/17/23 12:03 17:58 23:54 WBC RBC Hgb Hct MCV MCH MCHC RDW Plt Count MPV Immature Gran % (Auto) Neut % (Auto) Lymph % (Auto) [place] % (Auto) Eos % (Auto) Baso % (Auto) Lymph # (Auto) [place] # (Auto) Eos # (Auto) Baso # (Auto) Abs Immat Gran (auto) Absolute Neuts (auto) Absolute Nucleated RBC Nucleated RBC % (auto) VBG pH VBG pCO2 VBG pO2 VBG HCO3 VBG O2 Saturation VBG Base Excess Sodium Potassium Chloride Carbon Dioxide Anion Gap BUN Creatinine Estim Creat Clear Calc Estimated GFR POC Glucose 198 H 186 H 193 H Random Glucose Calcium Phosphorus Magnesium Total Bilirubin AST ALT Alkaline Phosphatase Total Protein Albumin 04/18/23 04/18/23 04:52 04:53 WBC 16.1 H RBC 2.64 L Hgb 8.0 L Hct 26.9 L MCV 101.9 H MCH 30.3 MCHC 29.7 L RDW 25.1 H Plt Count 191 MPV Not Reportable Immature Gran % (Auto) 2.8 H Neut % (Auto) 73.1 H Lymph % (Auto) 14.6 L [place] % (Auto) 9.2 Eos % (Auto) 0.1 Baso % (Auto) 0.2 Lymph # (Auto) 2.3 [place] # (Auto) 1.5 H Eos # (Auto) 0.0 Baso # (Auto) 0.0 Abs Immat Gran (auto) 0.45 H Absolute Neuts (auto) 11.8 H Absolute Nucleated RBC 0.020 H Nucleated RBC % (auto) 0.1 VBG pH 7.52 H VBG pCO2 23 VBG pO2 86 VBG HCO3 19 L VBG O2 Saturation 97.0 VBG Base Excess -2.3 Sodium 165 H* Potassium 4.0 Chloride 130 H Carbon Dioxide 19 L Anion Gap 20 BUN 159 H Creatinine 2.07 H Estim Creat Clear Calc 59.7 Estimated GFR 36 POC Glucose Random Glucose 179 H Calcium 8.9 Phosphorus 5.9 H Magnesium 4.2 H* Total Bilirubin 9.5 H AST 105 H ALT 168 H Alkaline Phosphatase 154 H Total Protein 6.2 L Albumin 3.7 Microbiology Microbiology Results: Microbiology 04/13/23 15:26 Sputum - Suctioned Gram Stain - Final 04/13/23 15:26 Sputum - Suctioned Sputum Culture - Final 04/01/23 18:54 Blood - Venous Blood Culture - Final No growth after 5 days. 04/01/23 18:54 Blood - Venous Blood Culture - Final No growth after 5 days. 04/03/23 14:57 Gallbladder Gram Stain - Final 04/03/23 14:57 Gallbladder Routine Culture - Final No growth after 2 days 03/29/23 11:45 Sputum - Suctioned Gram Stain - Final 03/29/23 11:45 Sputum - Suctioned Sputum Culture - Final Staphylococcus aureus Escherichia coli 03/25/23 19:18 Blood - Venous Blood Culture - Final No growth after 5 days. 03/25/23 19:18 Blood - Venous Blood Culture - Final No growth after 5 days. 03/22/23 23:25 Blood - Venous Blood Culture - Final No growth after 5 days. 03/22/23 23:25 Blood - Venous Blood Culture - Final No growth after 5 days. Procedures Date of Service Date of Service: 04/22/23 Assessment & Plan Assessment and plan (1) Anoxic brain injury: Status: Acute (2) Hypernatremia: Status: Acute Plan Made [employer] by ICU team Shall stop following actively Time Spent With Patient Time: Total time managing care of this patient today ____ minutes. Progress Note: Quality Stroke Does the patient have a stroke diagnosis?: No
--- NOTE | 2023-04-18 11:25 | P.PNCC_ITS ---
Subjective Subjective Date of Service: 04/18/23 Interval History: 37-year-old gentleman with underlying history of alcohol abuse, liver cirrhosis, bipolar disorder MDD admitted on 03/21/2023 with alcohol intoxication. Hospital course significant for abdominal pain for which patient was evaluated by General surgery on 03/22/2023 with no concern for cholecystitis. Further hospital stay complicated by cardiac arrest secondary to pulmonary aspiration of bilious gastric content with returned spontaneous circulation achieved after 3 around of CPR with patient intubated during the CPR and transferred to intensive care unit. In the intensive care unit patient required re-intubation with a large ET tube. OG drained approximately 1 L of bilious fluid. CT abdomen/ pelvis demonstrated dilated bowel loops with no definite transition point. Re- evaluated by General surgery with p.o. contrast noted in colon, thus no intervention warranted at that time. Continues with significant cephalopathy and poor arousal with sedation vacation. MRI brain on 03/28/2023 is essentially normal. Status post cholecystostomy on 04/03. Status post tracheostomy and jejunostomy on 04/10/2023. On 04/14/2023 with 2nd cardiac arrest secondary to development of subcutaneous emphysema/ pneumomediastinum /bilateral pneumothorax status with tension physiology, tracheostomy removed and patient reintubated with ETT. Return of spontaneous circulation after two rounds of CPR. Right- sided chest tube with improvement in bilateral communicating pneumothorax. MRI on 04/17/2023 with anoxic injury to mid brain. No events overnight. Critical Care Time (minutes): 60 Physical Exam 2 Vital Signs: Vital Signs: Last Vital Signs Temp 99.7 F 04/18/23 11:00 Pulse 103 H 04/18/23 11:00 Resp 34 H 04/18/23 11:00 BP 124/70 04/18/23 11:00 Pulse Ox 94 04/18/23 11:00 O2 Del Method Mechanical Ventil ation 04/18/23 11:00 O2 Flow Rate 10 04/12/23 14:00 FiO2 30 04/18/23 11:20 BMI result Body Mass Index 30.5 Const: General: no acute distress Eyes: Sclerae: scleral abnormal (Icteric) Neck: Neck: Yes no lymphadenopathy, Yes trachea midline and Yes supple Resp: Auscultation: crackles (Mild bilateral) Cardio: Rate: tachycardic Rhythm: regular rhythm Heart sounds: no gallops, no murmurs and no rubs GI: Palpation (GI): Soft to palpation and Other GI palpation findings present ( Nontender) Auscultation: normal bowel sounds Extrem: General: No clubbing, No cyanosis and Yes edema (Trace bilateral) Objective Data Labs 04/18/23 04:53 04/18/23 04:53 Labs: Laboratory Results - last 24 hr 04/17/23 04/17/23 04/17/23 12:03 17:58 23:54 WBC RBC Hgb Hct MCV MCH MCHC RDW Plt Count MPV Immature Gran % (Auto) Neut % (Auto) Lymph % (Auto) Butts % (Auto) Eos % (Auto) Baso % (Auto) Lymph # (Auto) Butts # (Auto) Eos # (Auto) Baso # (Auto) Abs Immat Gran (auto) Absolute Neuts (auto) Absolute Nucleated RBC Nucleated RBC % (auto) VBG pH VBG pCO2 VBG pO2 VBG HCO3 VBG O2 Saturation VBG Base Excess Sodium Potassium Chloride Carbon Dioxide Anion Gap BUN Creatinine Estim Creat Clear Calc Estimated GFR POC Glucose 198 H 186 H 193 H Random Glucose Calcium Phosphorus Magnesium Total Bilirubin AST ALT Alkaline Phosphatase Total Protein Albumin 04/18/23 04/18/23 04:52 04:53 WBC 16.1 H RBC 2.64 L Hgb 8.0 L Hct 26.9 L MCV 101.9 H MCH 30.3 MCHC 29.7 L RDW 25.1 H Plt Count 191 MPV Not Reportable Immature Gran % (Auto) 2.8 H Neut % (Auto) 73.1 H Lymph % (Auto) 14.6 L Butts % (Auto) 9.2 Eos % (Auto) 0.1 Baso % (Auto) 0.2 Lymph # (Auto) 2.3 Butts # (Auto) 1.5 H Eos # (Auto) 0.0 Baso # (Auto) 0.0 Abs Immat Gran (auto) 0.45 H Absolute Neuts (auto) 11.8 H Absolute Nucleated RBC 0.020 H Nucleated RBC % (auto) 0.1 VBG pH 7.52 H VBG pCO2 23 VBG pO2 86 VBG HCO3 19 L VBG O2 Saturation 97.0 VBG Base Excess -2.3 Sodium 165 H* Potassium 4.0 Chloride 130 H Carbon Dioxide 19 L Anion Gap 20 BUN 159 H Creatinine 2.07 H Estim Creat Clear Calc 59.7 Estimated GFR 36 POC Glucose Random Glucose 179 H Calcium 8.9 Phosphorus 5.9 H Magnesium 4.2 H* Total Bilirubin 9.5 H AST 105 H ALT 168 H Alkaline Phosphatase 154 H Total Protein 6.2 L Albumin 3.7 Microbiology Microbiology Results: Microbiology 04/13/23 15:26 Sputum - Suctioned Gram Stain - Final 04/13/23 15:26 Sputum - Suctioned Sputum Culture - Final 04/01/23 18:54 Blood - Venous Blood Culture - Final No growth after 5 days. 04/01/23 18:54 Blood - Venous Blood Culture - Final No growth after 5 days. 04/03/23 14:57 Gallbladder Gram Stain - Final 04/03/23 14:57 Gallbladder Routine Culture - Final No growth after 2 days 03/29/23 11:45 Sputum - Suctioned Gram Stain - Final 03/29/23 11:45 Sputum - Suctioned Sputum Culture - Final Staphylococcus aureus Escherichia coli 03/25/23 19:18 Blood - Venous Blood Culture - Final No growth after 5 days. 03/25/23 19:18 Blood - Venous Blood Culture - Final No growth after 5 days. 03/22/23 23:25 Blood - Venous Blood Culture - Final No growth after 5 days. 03/22/23 23:25 Blood - Venous Blood Culture - Final No growth after 5 days. Progress Note: A&P Assessment and plan (1) Anoxic brain injury: Status: Acute (2) Bilateral pneumothoraces: Status: Acute (3) Hypernatremia: Status: Acute (4) Uremia: Status: Acute (5) Ventilator dependent: Status: Acute (6) Metabolic acidosis: Status: Acute (7) TILA (acute kidney injury): Status: Acute (8) Ileus: Status: Acute (9) Hyperbilirubinemia: Status: Acute (10) Cardiopulmonary arrest with successful resuscitation: Status: Acute (11) Liver cirrhosis: Status: Acute (12) Alcoholic liver disease: Status: Acute Plan Assessment: 37-year-old gentleman admitted with alcohol intoxication on the background of degree cirrhosis with hospital course complicated by cardiopulmonary arrest secondary to pulmonary aspiration secondary to underlying ileus Plan: Neuro: MRI brain 04/17/2023 with anoxic brain injury. Discussions of goals of care are in progress. Cardiac: Repeat cardiac arrest secondary to tension pneumothorax. ROSC after 2 rounds of CPR. Pulmonary: Tracheostomy removed and re-intubated during the CPR on the background of pneumomediastinum communicating with bilateral pneumothoraces. Status post right sided chest tube. Continue ventilatory support. Renal: acute kidney injury,improving, no longer oliguric. Hypernatremia, increase free water flushes. Nephrology service care appreciated. Continue to monitor renal indices and urine output. Endo: No acute issues. GI: Alcoholic liver cirrhosis with hyperbilirubinemia. Ileus, now s/p neostigmine x3 with resolution of abdominal distension, now tolerating tube feeds. Cholecystitis status post cholecystostomy. General surgery and gastroenterology services care appreciated. ID: aspiration ppneumonia after aspiration of gastric contents. Treated for Staphylococcus aureus and E coli in sputum. Continue on empiric cefepime. Sputum culture with normal bandar. Heme/Onc: No acute issues. Psych: No acute issues. Prophylaxis: Heparin, ppi Diet: tube feeds Critical care time spent: 60 minutes Quality Stroke Does the patient have a stroke diagnosis?: No VTE Prior VTE?: No VTE Risk Level:: Medical - moderate - high VTE Device Contraindication: N/A - Device Ordered VTE Drug Contraindication: Treatment Not Tolerated
[2023-04-18 12:02] LABS: Glucose, Whole Blood 146 mg/dL (60-115)
--- NOTE | 2023-04-18 13:56 | MHC.CM.PN ---
Pt w/MRI finding of brain injury d/t moderate/severe anoxic event. MD to have goals of care w/family who seem to be leaning toward HOME BUILDER measures. CM to follow for any needs.
[2023-04-18 15:53] LABS: Basophils Percent Auto 0.1 % (0-2); Eosinophils Percent Auto 0.7 % (0-4); Hemoglobin 8.3 g/dl (14.0-18.0); Imm Gran Abs Auto 0.39 X10*3/uL (0.00-0.03); Imm Gran Pct Auto 2.1 % (0.0-0.4); Lymphocytes Percent Auto 14.9 % (20-40); MANUAL DIFF FLAG SCAN; Mean Corpuscular Volume 103.6 fL (80.0-98.0); NRBC Pct Auto 0.2 /100WBC (0.0-0.2); Platelet Count 196 X10*3/uL (160-400); SCAN SMEAR FLAG 1
[2023-04-18 15:55] LABS: Eosinophils Absolute Auto 0.1 X10*3/uL (0.0-0.4); Hematocrit 28.7 % (42.0-52.0); Lymphocytes Absolute Auto 2.8 X10*3/uL (1.2-4.9); Mean Corpuscular HGB Conc 28.9 g/dl (31.0-36.0); Monocytes Absolute Auto 1.6 X10*3/uL (0.1-1.2); Monocytes Percent Auto 8.4 % (2-11); Neutrophils Percent Auto 73.8 % (45-73); Red Blood Count 2.77 X10*6/uL (4.60-5.80)
[2023-04-18 15:56] LABS: PLT ABN DIST 1
[2023-04-18 16:04] LABS: Fibrinogen 282 MG/DL (259-690); INTERNATIONAL NORM RATIO 1.5 (0.9-1.1); Prothrombin Time 18.1 SEC (11.1-13.3)
[2023-04-18 16:06] LABS: D Dimer High Sensitivity 2913 NG/ML
[2023-04-18 16:07] LABS: Partial Thromboplastin Time 29.8 SEC (26.0-36.4)
[2023-04-18 16:09] LABS: Estimated Average Glucose 97 mg/dL
[2023-04-18 16:10] LABS: Lactic Acid 2.7 mmol/L (0.5-2.0)
[2023-04-18 16:11] LABS: Appearance Urine Clear; Color Urine Dark Yellow; Glucose Urine UA Negative (Negative); Leukocyte Esterase Urine Negative (Negative); Nitrite Urine Negative (Negative); PH 5.5 (5.0-9.0); Urine Blood Negative (Negative); Urine Ketones Negative (Negative); Urine Protein Negative (Neg-Trace)
[2023-04-18 16:12] LABS: Alanine Aminotransferase 169 U/L (0-40); Albumin Level 3.7 g/dL (3.5-5.0); Alkaline Phosphatase 167 U/L (39-117); Anion Gap 18 (12-20); Aspartate Amino Transferase 132 U/L (5-37); Bilirubin Direct 8.6 mg/dL (0.0-0.5); Bilirubin Total 10.8 mg/dL (0.0-1.0); Carbon Dioxide 19 mmol/L (22-29); Chloride 135 mmol/L (96-108); Creatinine Clr Calc Pharmacy 62.8; Estimated Glomerular Filt Rate 38; Glucose Random 155 mg/dL (60-115); Lactate Dehydrogenase 473 U/L (118-273); Phosphorus 5.5 mg/dL (2.7-4.5); Potassium 3.8 mmol/L (3.3-5.1); Sodium 168 mmol/L (135-145); Total Protein 6.2 g/dL (6.5-8.0)
[2023-04-18 16:16] LABS: SLIDE REVIEW VERIFIED
[2023-04-18 16:20] LABS: Blood Urea Nitrogen 142 mg/dL (9-16)
[2023-04-18 16:55] LABS: ABG Base Excess -3.7 mmol/L; ABG HCO3 19 mmol/L (22-26); ABG pCO2 26 mmHg (32-45); ABG pH 7.46 (7.35-7.45); ABG pO2 82 mmHg (83-108)
[2023-04-18 17:29] LABS: COVID-19 Test Invalid (Negative); IDNOW Serial# 58CA691E
[2023-04-18 17:49] LABS: Reflex Lactate? Lactic Acid Added
[2023-04-18 18:04] LABS: COVID-19 Test Negative (Negative); IDNOW Serial# BCCEAD1C
[2023-04-18] MEDS: fentaNYL citrate/NS 1,000 MCG/100 ML PLAST..BAG 2.5 MCG IVCONT (20:35)
[2023-04-18] MEDS: LORazepam 2 MG/ML VIAL IVPUSH (21:17)
--- NOTE | 2023-04-18 23:39 | PM.EVENT ---
Documented by User: So Wild NP 04/18/23 23:46 Event Note Date of Service: 04/18/23 Event Note: Patient comfort measures only. The patient reached asystole at 2224,? a 5 minute window was observed with no return of spontaneous circulation, absent peripheral pulses.? Pupils fixed and dilated.? Absent heart sounds? and no spontaneous breathing.? Patient declared at 2229.? Family and organ donation present at bedside. Patient not a medical exam candidate. attending Dr Hernandes notifed. Post pronouncement patient to OR for organ donation Time Spent With Patient Time: Total time managing care of this patient today ____ minutes. Documented by User: Taj Hernandes MD 04/19/23 13:48 Event Note Date of Service: 04/19/23
--- NOTE | 2023-04-19 00:22 | PC.NURSE ---
Assumed care at 0700 04/18. Patient intubated, mechanically vented and sedated. Per pt.s family- goals of care discussion was held and family is accepting of DISASTER DIRECTOR code status change. [facility] refferal made approx. 0900. This RN spoke with [facility] rep. Angela, case #[id number], patient on hold status for possible donation. [facility] branch customer service representative on site for chart review-per rep, pt. accepted for kidney donation- family notified by [facility]. Family accepting of organ donation. [facility] rep Mariano on site to assist with clinical coordination. Patient transitioned to DISASTER DIRECTOR status at 193- fentanyl gtt titrated per EMAR. Per Mariano- 30,000 Unit heparin IVP administered. Patient terminally extubated at 2118 by RT per CRIMINAL LEGAL ASSISTANT order. CRIMINAL LEGAL ASSISTANT, this RN, and Mariano present at bedside through entire DISASTER DIRECTOR period. Patient TOD 2228- patient escorted to OR by this RN.
--- NOTE | 2023-04-19 13:45 | P.DN_ITS ---
Discharge Sum: Prov Provider Primary care physician: Rudy Zelaya PA-C Consults: 03/21/23 16:51 Consult to Gastroenterology Routine Consulting Provider: Charles Guerrier Reason for consultation: Alcoholic hepatitis, liver failure 03/21/23 18:11 Consult to General Surgery Routine Consulting Provider: [facility] Reason for consultation: elevated LFTs ?cholecystitis Has provider been notified: No 03/23/23 09:48 Consult to General Surgery Routine Consulting Provider: [facility] Reason for consultation: ileus vs SBO Has provider been notified: No 03/25/23 12:29 Consult to Care Team Routine Comment: Reason for consultation: Family request - Family looking for resources ? Al [place]on 03/26/23 08:34 Consult to Gastroenterology Routine Consulting Provider: [facility] Reason for consultation: Alcoholic cirrhosis, acute liver failure, ileus Has provider been notified: No 03/31/23 09:33 Consult to Nephrology Routine Consulting Provider: [facility] Reason for consultation: Acute kidney injury Has provider been notified: No 04/02/23 13:18 Consult to Neurology Stat Consulting Provider: Jeb Lagunas Reason for consultation: Encephalopathy Has provider been notified: No 04/04/23 09:05 Consult to Wound Care Routine Reason for consultation: New pressure injury Has provider been notified: No 04/09/23 11:35 Consult to Thoracic Surgery Routine Consulting Provider: Earl Holley Reason for consultation: Tracheostomy and gastrostomy placement Has provider been notified: No 04/18/23 12:09 Consult to [facility] ([facility]) Stat Consulting Provider: [facility] Discharge Sum: Diag Contributing Factors (1) Anoxic brain injury: (2) Bilateral pneumothoraces: (3) Hypernatremia: (4) Uremia: (5) Ventilator dependent: (6) Metabolic acidosis: (7) TILA (acute kidney injury): (8) Ileus: (9) Hyperbilirubinemia: (10) Cardiopulmonary arrest with successful resuscitation: (11) Liver cirrhosis: (12) Alcoholic liver disease: Discharge Sum: Summary Date and Time Date of admission: 03/21/23 16:30 Date of : 04/18/23 Time of : 22:29 Summary Details: 37-year-old gentleman with underlying history of alcohol abuse, liver cirrhosis, bipolar disorder MDD admitted on 03/21/2023 with alcohol intoxication. Hospital course significant for abdominal pain for which patient was evaluated by General surgery on 03/22/2023 with no concern for cholecystitis. Further hospital stay complicated by cardiac arrest secondary to pulmonary aspiration of bilious gastric content with returned spontaneous circulation achieved after 3 around of CPR with patient intubated during the CPR and transferred to intensive care unit. In the intensive care unit patient required re-intubation with a large ET tube. OG drained approximately [address] L of bilious fluid. CT abdomen/ pelvis demonstrated dilated bowel loops with no definite transition point. Re- evaluated by General surgery with p.o. contrast noted in colon, thus no intervention warranted at that time. Continues with significant cephalopathy and poor arousal with sedation vacation. MRI brain on 03/28/2023 is essentially normal. Status post cholecystostomy on 04/03. Status post tracheostomy and jejunostomy on 04/10/2023. On 04/14/2023 with 2nd cardiac arrest secondary to development of subcutaneous emphysema/ pneumomediastinum /bilateral pneumothorax status with tension physiology, tracheostomy removed and patient reintubated with ETT. Return of spontaneous circulation after two rounds of CPR. Right- sided chest tube with improvement in bilateral communicating pneumothorax. MRI on 04/17/2023 with anoxic injury to mid brain. Discussion with family held and selwyn balderas decided to switch goals of care to comfort measures only. Patient terminal extubated on 04/18/2023 and passed in comfort at 22:24 Additional Data Attending physician: Taj Hernandes MD
[2023-04-19 17:33] LABS: Calcium, Ionized 5.1 mg/dL (4.7-5.5)
== END 2023-04-18 22:29 | disposition expired | DRG 4 ==
LOC: HO.ED 16:18 → HO.EDOVER 16:34 → HO.IMC 21:31 → HO.ICU 03-22 22:08
PROVIDERS: Anesthesiology; Internal Medicine Critical Care Medicine; Internal Medicine Hypertension Specialist; Nurse Practitioner Family; Physician Assistant Medical; Registered Nurse Community Health; Student in an Organized Health Care Education/Training Program; Surgery; Admitting Provider Student in an Organized Health Care Education/Training Program; Emergency Provider Emergency Medicine; PCP Physician Assistant; Visit Provider Internal Medicine Pulmonary Disease
PROC: 0B110F4 Bypass Trachea to Cutaneous with Tracheostomy Device, Open Approach (ICD-10-PCS; principal; 2023-04-10 10:20)
PROC: 0B110F4 Bypass Trachea to Cutaneous with Tracheostomy Device, Open Approach (ICD-10-PCS; 2023-04-10 10:20)
DX: K76.82 Hepatic encephalopathy (principal); N17.0 Acute kidney failure with tubular necrosis; R57.0 Cardiogenic shock; J69.0 Pneumonitis due to inhalation of food and vomit; J93.0 Spontaneous tension pneumothorax; G92.8 Other toxic encephalopathy; G93.1 Anoxic brain damage, not elsewhere classified; K81.0 Acute cholecystitis; K76.6 Portal hypertension; J96.01 Acute respiratory failure with hypoxia; Z99.11 Dependence on respirator [ventilator] status; F10.129 Alcohol abuse with intoxication, unspecified; D50.9 Iron deficiency anemia, unspecified; K56.7 Ileus, unspecified; B95.61 Methicillin susceptible Staphylococcus aureus infection as the cause of diseases classified elsewhere; I46.8 Cardiac arrest due to other underlying condition; Z66 Do not resuscitate; B96.20 Unspecified Escherichia coli [E. coli] as the cause of diseases classified elsewhere; F10.139 Alcohol abuse with withdrawal, unspecified; E87.0 Hyperosmolality and hypernatremia; E46 Unspecified protein-calorie malnutrition; Z51.5 Encounter for palliative care; Z68.30 Body mass index [BMI] 30.0-30.9, adult; J98.2 Interstitial emphysema; L89.156 Pressure-induced deep tissue damage of sacral region; E87.6 Hypokalemia; E78.5 Hyperlipidemia, unspecified; F31.9 Bipolar disorder, unspecified; K59.09 Other constipation; K31.89 Other diseases of stomach and duodenum; M79.7 Fibromyalgia; Z20.822 Contact with and (suspected) exposure to COVID-19; Y90.8 Blood alcohol level of 240 mg/100 ml or more; Z87.891 Personal history of nicotine dependence; Z79.899 Other long term (current) drug therapy
CPT/HCPCS: 36415; 36600; 49405; 70450; 70551; 71045; 71250; 74018; 74176; 74177; 76705; 80048; 80053; 80076; 80202; 80307; 81001; 81003; 82040; 82140; 82247; 82248; 82272; 82330; 82570; 82803; 82947; 83036; 83540; 83605; 83615; 83735; 83880; 84100; 84156; 84300; 84443; 84478; 84484; 85007; 85014; 85018; 85025; 85027; 85379; 85384; 85610; 85730; 86850; 86900; 86901; 86923; 87040; 87070; 87077; 87186; 87205; 87635; 88305; 88329; 88331; 92950; 93005; 93306; 93356; 94002; 94003; 94799; 95816; 99024; 99285; C1729; C1758; C9113; J0131; J0171; J0613; J0692; J0696; J1170; J1200; J1205; J1364; J1644; J1836; J1940; J2060; J2250; J2270; J2371; J2543; J2560; J2704; J2710; J2760; J2920; J3010; J3370; J3371; J3411; J3430; J3480; J7120; P9016; P9047; Q9967

== ENCOUNTER 2023-03-21 16:30 | Outpatient (BNV) | payer BC, SELFPAY | END 2023-04-16 02:47 | PROVIDERS: Admitting Provider Student in an Organized Health Care Education/Training Program; Emergency Provider Emergency Medicine; PCP Physician Assistant; Visit Provider Internal Medicine Cardiovascular Disease | DX: I45.81 Long QT syndrome (principal) | CPT/HCPCS: 93010 ==

== ENCOUNTER 2023-03-21 16:30 | Outpatient (BNV) | payer BC, SELFPAY | END 2023-03-23 11:13 | PROVIDERS: Admitting Provider Student in an Organized Health Care Education/Training Program; Emergency Provider Emergency Medicine; PCP Physician Assistant; Visit Provider Internal Medicine | DX: I46.9 Cardiac arrest, cause unspecified (principal) | CPT/HCPCS: 93306 ==

== ENCOUNTER 2023-03-21 16:30 | Outpatient (BNV) | payer BC, SELFPAY | END 2023-04-03 13:26 | PROVIDERS: Admitting Provider Student in an Organized Health Care Education/Training Program; Emergency Provider Emergency Medicine; PCP Physician Assistant; Visit Provider Student in an Organized Health Care Education/Training Program | DX: K81.0 Acute cholecystitis (principal) | CPT/HCPCS: 47490 ==

== ENCOUNTER → 2023-03-21 16:30 | Outpatient (BNV) | payer BC, OTHER, SELFPAY | PROVIDERS: Admitting Provider Student in an Organized Health Care Education/Training Program; Emergency Provider Emergency Medicine; PCP Physician Assistant; Visit Provider Internal Medicine Gastroenterology | DX: K70.9 Alcoholic liver disease, unspecified (principal); F10.939 Alcohol use, unspecified with withdrawal, unspecified; K76.82 Hepatic encephalopathy | CPT/HCPCS: 99499 ==

== ENCOUNTER → 2023-03-21 16:30 | Outpatient (BNV) | payer BC, SELFPAY | PROVIDERS: Admitting Provider Student in an Organized Health Care Education/Training Program; Emergency Provider Emergency Medicine; PCP Physician Assistant; Visit Provider Registered Nurse Community Health | DX: K76.82 Hepatic encephalopathy (principal); K59.00 Constipation, unspecified; D64.9 Anemia, unspecified; J93.9 Pneumothorax, unspecified | CPT/HCPCS: 31500; 32551; 36556; 99291; 99292; 99499 ==

== ENCOUNTER → 2023-03-21 16:30 | Outpatient (BNV) | payer BC, SELFPAY | PROVIDERS: Admitting Provider Student in an Organized Health Care Education/Training Program; Emergency Provider Emergency Medicine; PCP Physician Assistant; Visit Provider Physician Assistant Surgical | DX: Z99.11 Dependence on respirator [ventilator] status (principal); E46 Unspecified protein-calorie malnutrition | CPT/HCPCS: 31600; 44300; 99222; 99232; 99233; 99499 ==

== ENCOUNTER → 2023-03-21 16:30 | Outpatient (BNV) | payer BC, SELFPAY | PROVIDERS: Admitting Provider Student in an Organized Health Care Education/Training Program; Emergency Provider Emergency Medicine; PCP Physician Assistant; Visit Provider Internal Medicine Gastroenterology | DX: E80.6 Other disorders of bilirubin metabolism (principal); K56.7 Ileus, unspecified | CPT/HCPCS: 99232; 99233 ==

== ENCOUNTER → 2023-03-21 16:30 | Outpatient (BNV) | payer BC, SELFPAY | PROVIDERS: Admitting Provider Student in an Organized Health Care Education/Training Program; Emergency Provider Emergency Medicine; PCP Physician Assistant; Visit Provider Internal Medicine Pulmonary Disease | DX: G93.1 Anoxic brain damage, not elsewhere classified (principal); J93.9 Pneumothorax, unspecified; E87.0 Hyperosmolality and hypernatremia; N19 Unspecified kidney failure; Z99.11 Dependence on respirator [ventilator] status; E87.20 Acidosis, unspecified; N17.9 Acute kidney failure, unspecified; K56.7 Ileus, unspecified; E80.6 Other disorders of bilirubin metabolism; I46.9 Cardiac arrest, cause unspecified; K74.60 Unspecified cirrhosis of liver; K70.9 Alcoholic liver disease, unspecified | CPT/HCPCS: 99239; 99291; 99292; 99499 ==

== ENCOUNTER → 2023-03-21 16:30 | Outpatient (BNV) | payer BC, SELFPAY | PROVIDERS: Admitting Provider Student in an Organized Health Care Education/Training Program; Emergency Provider Emergency Medicine; PCP Physician Assistant; Visit Provider Student in an Organized Health Care Education/Training Program | DX: K76.82 Hepatic encephalopathy (principal); K70.9 Alcoholic liver disease, unspecified; F10.939 Alcohol use, unspecified with withdrawal, unspecified; K59.00 Constipation, unspecified; D64.9 Anemia, unspecified | CPT/HCPCS: 99223; 99233 ==

== ENCOUNTER → 2023-03-21 16:30 | Outpatient (BNV) | payer BC, SELFPAY | PROVIDERS: Admitting Provider Student in an Organized Health Care Education/Training Program; Emergency Provider Emergency Medicine; PCP Physician Assistant; Visit Provider Internal Medicine Hypertension Specialist | DX: G93.1 Anoxic brain damage, not elsewhere classified (principal); E87.0 Hyperosmolality and hypernatremia; Z51.5 Encounter for palliative care | CPT/HCPCS: 99231; 99232; 99254 ==